=== PATIENT | female | born 1960 | race Two or more races ===

== ENCOUNTER 2024-11-01 07:49 | Outpatient (OUT) | payer MEDICARE, MEDICAID, SELFPAY ==
--- NOTE | 2024-11-01 08:07 | ECG_ITS ---
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 Measurements Intervals [place] Rate: 84 P: 29 WY: 141 QRS: -24 QRSD: 109 T: 17 QT: 396 QTc: 468 Interpretive Statements SINUS RHYTHM BORDERLINE LEFT AXIS DEVIATION [QRS AXIS < -20] LOW QRS VOLTAGE IN PRECORDIAL LEADS [QRS DEFLECTION < 1.0 mV IN CHEST LEADS] PATTERN CONSISTENT WITH PULMONARY DISEASE NONSPECIFIC ST & T-WAVE ABNORMALITY Abnormal ECG No previous ECG available for comparison Electronically Signed On 11-01-2024 17:28:05 EDT by KYRA SOLORZANO M.D.
[2024-11-01 09:08] LABS: Basophils Percent Auto 0.6 % (0.2-2.0); Eosinophils Absolute Auto 0.5 10^3/uL (0.0-0.7); Eosinophils Percent Auto 6.9 % (0.9-7.0); Hematocrit 38.7 % (36.0-48.0); Hemoglobin 12.3 g/dL (12.0-16.0); Immature Granulocytes Abs Auto 0.05 10^3/uL (0.00-0.03); Immature Granulocytes Pct Auto 0.8 % (0.0-0.5); Lymphocytes Absolute Auto 1.7 10^3/uL (1.2-3.8); Lymphocytes Percent Auto 26.7 % (20.5-60.0); Mean Corpuscular HGB Conc 31.8 g/dL (29.9-35.2); Mean Corpuscular Hemoglobin 29.4 pg (26.7-34.0); Mean Corpuscular Volume 92.6 fL (81.0-99.0); Mean Platelet Volume 8.6 fL (9.5-13.5); Monocytes Absolute Auto 0.5 10^3/uL (0.3-0.8); Monocytes Percent Auto 7.4 % (1.7-12.0); Neutrophils Absolute Auto 3.7 10^3/uL (1.4-6.5); Neutrophils Percent Auto 57.6 % (43.0-75.0); Platelet Count 420 10^3/uL (150-450); Red Blood Count 4.18 10^6/uL (4.20-5.40); Red Cell Distribution Width 14.3 % (11.0-15.0); White Blood Count 6.5 10^3/uL (4.0-11.0)
--- NOTE | 2024-11-01 09:16 | PM.PRESUREVA ---
History of Present Illness History of Present Illness Chief complaint: Neurogenic Bladder Narrative: Patient presents for presurgical testing. The patient states she was diagnosed with MS at the age of 21. She has a history of seizures, but states it has been more than 10 years since her last episode. She states she previously had a suprapubic catheter placed, but it was removed and she is now scheduled for reinsertion. [facility] Review of Systems ROS Narrative REVIEW OF SYSTEMS: Negative except as stated in HPI, ten or more systems reviewed. Constitutional: No fever, chills, weakness ENT: No sore throat or epistaxis Cardiovascular: No edema, chest pain, or palpitations Respiratory: No shortness of breath, cough, or wheezing Musculoskeletal: No joint pain or swelling Gastrointestinal: No abdominal pain, diarrhea, or vomiting Genitourinary: No hematuria Neurological: No headache Psychiatric: No mood changes [facility] Medical History (Updated 11/01/24 @ 09:15 by Karuna Hawkins NP) Constipation ?K59.00 - Constipation, unspecified (ICD-10) Poole catheter in place ?Z97.8 - Presence of other specified devices (ICD-10) Suprapubic catheter ?Z93.59 - Other cystostomy status (ICD-10) Femur fracture ?S72.90XA - Unspecified fracture of unspecified femur, initial encounter for closed fracture (ICD-10) History of blood transfusion ?Z92.89 - Personal history of other medical treatment (ICD-10) Anemia ?D64.9 - Anemia, unspecified (ICD-10) Arthritis ?M19.90 - Unspecified osteoarthritis, unspecified site (ICD-10) COVID-19 ?U07.1 - COVID-19 (ICD-10) Kidney stones ?N20.0 - Calculus of kidney (ICD-10) Transient cerebral ischemic attack ?G45.9 - Transient cerebral ischemic attack, unspecified (ICD-10) Lack of coordination ?R27.9 - Unspecified lack of coordination (ICD-10) Muscle weakness ?M62.81 - Muscle weakness (generalized) (ICD-10) Need for assistance with personal care ?Z74.1 - Need for assistance with personal care (ICD-10) Dysphagia ?R13.10 - Dysphagia, unspecified (ICD-10) Cellulitis of lower extremity ?L03.119 - Cellulitis of unspecified part of limb (ICD-10) Osteoporosis ?M81.0 - Age-related osteoporosis without current pathological fracture (ICD-10) Fibula fracture ?S82.409A - Unspecified fracture of shaft of unspecified fibula, initial encounter for closed fracture (ICD-10) History of fall ?Z91.81 - History of falling (ICD-10) UTI (urinary tract infection) ?N39.0 - Urinary tract infection, site not specified (ICD-10) Depression ?F32.A - Depression, unspecified (ICD-10) Radiculopathy, cervical ?M54.12 - Radiculopathy, cervical region (ICD-10) Erythema intertrigo ?L30.4 - Erythema intertrigo (ICD-10) Venous insufficiency (chronic) (peripheral) ?I87.2 - Venous insufficiency (chronic) (peripheral) (ICD-10) Unsteadiness on feet ?R26.81 - Unsteadiness on feet (ICD-10) Abnormality of gait ?R26.9 - Unspecified abnormalities of gait and mobility (ICD-10) Syncope and collapse ?R55 - Syncope and collapse (ICD-10) GERD (gastroesophageal reflux disease) ?K21.9 - Gastro-esophageal reflux disease without esophagitis (ICD-10) Cognitive communication deficit ?R41.841 - Cognitive communication deficit (ICD-10) Seizure ?R56.9 - Unspecified convulsions (ICD-10) Congenital mitral stenosis ?Q23.2 - Congenital mitral stenosis (ICD-10) Neurogenic bladder ?N31.9 - Neuromuscular dysfunction of bladder, unspecified (ICD-10) Multiple sclerosis (~1980) ?G35 - Multiple sclerosis (ICD-10) Surgical History (Updated 11/01/24 @ 09:15 by Karuna Hawkins NP) History of open reduction and internal fixation (ORIF) procedure (~2016) ?Z98.890 - Other specified postprocedural states (ICD-10) Status post ORIF of fracture of ankle (~2016) ?Z98.890 - Other specified postprocedural states (ICD-10) ?Z87.81 - Personal history of (healed) traumatic fracture (ICD-10) History of spinal surgery ?Z98.890 - Other specified postprocedural states (ICD-10) History of tonsillectomy ?Z90.89 - Acquired absence of other organs (ICD-10) S/P ureteral stent placement ?Z96.0 - Presence of urogenital implants (ICD-10) S/P cystoscopy ?Z98.890 - Other specified postprocedural states (ICD-10) H/O ureteroscopy (05/26/22) ?Z98.890 - Other specified postprocedural states (ICD-10) Family History (Updated 11/01/24 @ 08:37 by Karuna Hawkins NP) Other Family history of cancer Family history of heart disease Social History (Updated 11/01/24 @ 08:31 by Karuna Hawkins NP) Within the past year, how often did you have a drink containing alcohol: never Score interpretation: A score less than 3 is consistent with normal alcohol consumption. Smoking status: Never smoker Non-prescribed substance use: denies use Highest level of school completed/degree received: high school graduate Meds Home Medications and Allergies Home Medications ?Medication ?Instructions ?Recorded ?Confirmed ?Type acetaminophen 325 mg capsule 650 mg PO Q6H PRN pain 11/01/24 11/01/24 History albuterol sulfate 2.5 mg/3 mL 2.5 mg inhalation Q2H PRN 11/01/24 11/01/24 History (0.083 %) solution for nebulization shortness of breath or wheezing bisacodyl 10 mg rectal suppository 10 mg RI DAILY PRN constipation 11/01/24 11/01/24 History carboxymethylcellulose sodium 1 % 1 drp ophthalmic (eye) Q6H 11/01/24 11/01/24 History eye drops cholecalciferol (vitamin D3) 25 1,000 unit PO DAILY 11/01/24 11/01/24 History mcg (1,000 unit) capsule fludrocortisone 0.1 mg tablet 0.05 mg PO DAILY 11/01/24 11/01/24 History fluoxetine 10 mg capsule 10 mg PO DAILY 11/01/24 11/01/24 History lamotrigine 100 mg tablet 100 mg PO Q12H 11/01/24 11/01/24 History magnesium hydroxide 400 mg/5 mL 30 ml PO DAILY PRN constipation 11/01/24 11/01/24 History oral suspension (Milk of Magnesia) miconazole nitrate 2 % topical 1 applic topical TID PRN 11/01/24 11/01/24 History powder (Micro-Guard) Excoriation of abdominal folds nortriptyline 10 mg capsule 10 mg PO DAILY 11/01/24 11/01/24 History omeprazole 20 mg capsule,delayed 20 mg PO DAILY 11/01/24 11/01/24 History release sennosides 8.6 mg tablet (Senna 8.6 mg PO BID PRN constipation 11/01/24 11/01/24 History Lax) tacrolimus 0.1 % topical ointment 1 applic topical QPM 11/01/24 11/01/24 History Allergies Allergy/AdvReac Type Severity Reaction Status Date / Time aspirin Allergy Unknown Verified 11/01/24 08:30 Exam Narrative Exam Narrative: Constitutional: Awake, alert, resting comfortably in the wheelchair, appears well cared for, nontoxic, interactive, vital signs as charted Head: Normocephalic, atraumatic Neck: Supple, normal appearance, normal range of motion, no meningeal signs, no lymphadenopathy Respiratory: No respiratory distress, breath sounds clear Cardiovascular: Regular rate and rhythm, strong and regular heart tones Abdomen: Nontender, normal bowel sounds, soft, no CVA tenderness, Poole catheter intact draining a scant amount of yellow urine Musculoskeletal: Strong and equal hand grasps, moves all extremities Skin: No rashes or induration, no lesions, only visible skin inspected Neuro: No gross neurological deficits Psychiatric: Oriented ?3, normal affect Assessment and Plan Assessment and Plan (1) Neurogenic bladder: (2) Multiple sclerosis: Onset Date: ~1980 Plan Cystoscopy, suprapubic catheter placement scheduled with Dr. Warner November 16, 2024.
[2024-11-01 09:33] LABS: INR 1.03; Partial Thromboplastin Time 28.7 sec (22.3-36.2); Prothrombin Time 10.9 sec (9.0-11.6)
[2024-11-01 10:06] LABS: Anion Gap 10.8; BUN Creatinine Ratio 10.9; Calcium 8.7 mg/dL (8.5-10.1); Carbon Dioxide 32.3 mmol/L (21.0-32.0); Chloride 104 mmol/L (98-107); Estimated GFR (African America >60 (>=60 mL/min/1.73m^2); Estimated GFR (Non-African Ame 55 (>=60 mL/min/1.73m^2); Glucose 90 mg/dL (74-106); Potassium 3.1 mmol/L (3.5-5.1); Sodium 144 mmol/L (136-145)
== END 2024-11-01 07:50 | disposition home or self-care (01) ==
PROVIDERS: PCP Internal Medicine; Visit Provider Urology
DX: Z01.810 Encounter for preprocedural cardiovascular examination (principal); Z01.812 Encounter for preprocedural laboratory examination; Z01.818 Encounter for other preprocedural examination; N31.9 Neuromuscular dysfunction of bladder, unspecified; G35 Multiple sclerosis; R82.998 Other abnormal findings in urine
CPT/HCPCS: 80048; 85025; 85610; 85730; 87086; 87150; 87186; 93005; G0463

== ENCOUNTER 2024-11-16 07:01 | Day surgery (SDC) | payer MEDICARE, MEDICAID, SELFPAY ==
[2024-11-01 08:59] VITALS: BP 115/73; PULSE 88; TEMP 36.3; O2SAT 96; BMI 32.0
[2024-11-16] VITALS (10 sets, daily range): BP systolic 103–130; BP diastolic 67–85; PULSE 64–96; TEMP 36.1–36.4; O2SAT 92–95; BMI 31.5
--- OUTSIDE RECORDS SUMMARY | 2024-11-16 07:08 | XMS_ITS | CCD ---
Author Organization [facility] Care Team Providers Care Machine Tech Name Role Phone Maty Bolaños Primary Care Provider [phone] NARESH FOX Referring Unavailable BOLAÑOS, MATY Krishnamurthy Primary Care Unavailable FAHOURY, RANIA Referring Unavailable BOLAÑOS, MATY W Primary Care Unavailable FAHOURY, RANIA Referring Unavailable BOLAÑOS, MATY W Primary Care Unavailable FAHOURY, RANIA Referring Unavailable BOLAÑOS, MATY W Primary Care Unavailable FAHOURY, RANIA Referring Unavailable BOLAÑOS, MATY W Primary Care Unavailable NEVA MILLER Primary Care Physician DO Neva Miller Primary Care Provider DO Neva Miller Attending Provider [phone] DO Neva Miller Referring Provider [phone] MD Silvina Turner Attending Provider [phone] DO Neva Miller Referring Provider MD Silvina Turner Attending Provider [phone] Americo Maldonado Unavailable DO Neva Miller Primary Care Provider MD Tammy Allan Attending Provider [phone] MD Silvina Turner Attending Provider [phone] DO Neva Miller Primary Care Provider [phone] MD Tammy Allan Attending Provider MD Silvina Turner Attending Provider [phone] DO Ricardo Casanova Emergency Provider [phone] DO Neva Miller Primary Care Provider MD Silvina Turner Attending Provider DO Neva Miller Referring Provider YRN Botello Attending Provider DO Neva Miller Attending Provider [phone] YRN Botello Attending Provider DO Neva Miller Primary Care Provider [phone] DO Neva Miller Attending Provider [phone] YRN Botello Attending Provider DO Tammy Hart Emergency Provider DO Tammy Hart Attending Provider DO Neva Miller Primary Care Provider [phone] DO Yan Smith Attending Provider DO Neva Miller Attending Provider DO Neva Miller Primary Care Provider [phone] YRN Blair Attending Provider MD Silvina Turner Attending Provider DO Neva Miller Referring Provider YRN Botello Attending Provider DO Neva Miller Primary Care Provider [phone] DO Neva Miller Attending Provider DO Neva Miller Primary Care Provider DO Neva Miller Referring Provider [phone] MD Silvina Turner Attending Provider YRN Botello Attending Provider DO Neva Miller Attending Provider DO Adam Lind Emergency Provider Neva Miller DO Unavailable Neva Miller DO Primary Care Provider DO Neva Miller Primary Care Provider DO Neva Miller Attending Provider MD Tammy Allan Attending Provider [phone] MD Gely Story Emergency Provider MD Luis Santoro Admit Provider MD Luis Santoro Attending Provider MD Americo Maldonado Other Provider MD Yuriy Triana Attending Provider Neva Miller DO Primary Care Provider Neva Miller DO Attending Provider Tammy Allan MD Attending Provider Jez EVANS, Gely Burk Emergency Provider Yvan EVANS, Luis Admit Provider Americo Maldonado MD Other Provider Yuriy Triana MD Attending Provider Neva Miller DO Primary Care Provider [phone] Tammy Allan MD Attending Provider Neva Miller DO Primary Care Provider Tammy Allan MD Attending Provider Emre Mendes DO Emergency Provider [place] Gaviria MD, [place] Admit Provider [phone] [place] Gaviria MD Attending Provider Tammy Allan MD Other Provider Bong Jennings MD Other Provider Emma Merino MD Other Provider Mary EVANS, Romeo Alonzo Other Provider Tammy Smith MD Other Provider Johnny EVANS, Lew Santillan Other Provider [phone] Tamera EVANS, Jair Other Provider [phone] Daly FILEMAKER DEVELOPER-C, Monae Fernandez Other Provider Maryan GREERP-Mayra Other Provider Luis Santoro MD Attending Provider Americo Maldonado MD Other Provider Genia DO, Chelsea Other Provider Mayra Grier X Attending Unavailable ALLAN, Tammy R Attending Unavailable ALLAN, Tammy R Attending Unavailable Orblancach, Mayra X Attending Unavailable ALLAN, Tammy R Attending Unavailable ALLAN, Tammy R Attending Unavailable ALLAN, Tammy R Attending Unavailable ALLAN, Tammy R Attending Unavailable ALLAN, Tammy R Attending Unavailable Bong JENNINGS Attending Unavailable Bong JENNINGS Referring Unavailable JERRELL, Tammy Burk Attending Unavailable JERRELL, Tammy R Attending Unavailable Neva Miller DO Primary Care Provider [phone] Tammy Allan MD Attending Provider [phone] Neva Miller DO Attending Provider Neva Miller DO Referring Provider CASH BLAIR Attending Unavailable NEVA MILLER Referring Unavailable RACHAEL SALTER Attending Unavailable CHELSEA WILLINGHAM Attending Unavailable NEVA MILLER Referring Unavailable Neva Miller DO Primary Care Provider [phone] Tammy Allan MD Attending Provider Luis Santoro Attending Unavailable Tammy Allan Consulting Unavailable [place] Gaviria Admitting Unavailable Neva Miller Primary Care Unavailable Bong Jennings Consulting Unavailable Emma Merino Consulting Unavailable Romeo Hernandez Consulting Unavailable Tammy Smith Consulting Unavailable Lew Turner Consulting Unavailable Janet-Jair Narayan Consulting Unavail able Monae Kauffman Consulting Unavailable Mayra Grier Consulting Unavailable Americo Maldonado Consulting Unavailable Chelsea Willingham Consulting Unavailable Neva Miller Attending Unavailable Neva Miller Admitting Unavailable Neva Miller Primary Care Unavailable Tammy Allan Admitting Unavailable Tammy Allan Attending Unavailable Neva Miller Primary Care Unavailable Allan, Tammy Attending Unavailable Allan, Tammy Admitting Unavailable Vaschak, Neva Primary Care Unavailable Allan, Tammy Attending Unavailable Allan, Tammy Admitting Unavailable Vaschak, Neva Primary Care Unavailable Allan, Tammy Attending Unavailable Allan, Tammy Admitting Unavailable Vaschak, Neva Referring Unavailable Vaschak, Neva Attending Unavailable Vaschak, Neva Admitting Unavailable Allan, Tammy Attending Unavailable Allan, Tammy Admitting Unavailable Vaschak, Neva Primary Care Unavailable Allan, Tammy Attending Unavailable Allan, Tammy Admitting Unavailable Vaschak, Neva Primary Care Unavailable Vaschak, Neva Attending Unavailable Vaschak, Neva Admitting Unavailable Yuriy Triana Attending Unavailab Americo Gallardo Unavailable Yvan, Luis Admitting Unavailable Vaschak, Neva Primary Care Unavailable Allergies Allergy Classification Reported Allergen(s) Allergy Type Date of Onset Reaction(s) Facility (20 sources) Aluminum aspirin; Translations: [aspirin] Drug Allergy 9 Unknown Reaction [place], [place] Comment on above: difficulty breathing (9 sources) Aspirin; Translations: [aspirin] Drug Allergy 9 Unknown, Unknown Reaction [place] Other (20 sources) Adhesive Tape; Translations: [adhesive tape] Allergy to substance 2 Unknown Reaction, Rash [facility] (19 sources) Silicone Allergy to substance 3 [facility] (7 sources) Wound Dressing Adhesive Propensity to adverse reactions 3 [facility] (1 source) Aspirin Drug Allergy [address] [place] [address] Repository (1 source) silicone Drug allergy (disorder) [address] [place] [address] Repository Medications Current Medications Medication Drug Class(es) Dates Sig (Normalized) Sig (Original) acetaminophen 325 mg oral capsule (20 sources) Start: 10-17-2023 take 2 capsules by mouth every six hours as needed for pain Acetaminophen 325 mg capsule Active 650 MG PO Every 6 hours as needed for pain October 17, 2023 12:00am Start: 10-17-2023 take 650 mg by mouth every six hours Acetaminophen Active 650 MG PO Every 6 hours October 17, 2023 12:00am Start: 04-23-2021 End: 10-17-2023 take 1 tablet by mouth every six hours as needed for pain Acetaminophen 500 mg Tablet Discontinued 500 MG PO Q6H as needed for Pain April 23, 2021 12:00am October 17, 2023 12:42pm take 1 tablet by rupa th every eight hours as needed for pain acetaminophen (Tylenol 8 Hour) 650 MG ER tablet Take 650 mg by mouth every 8 (eight) hours if needed for mild pain. Do not crush, chew, or split. Active take 1 tablet by rupa th every six hours as needed for pain acetaminophen (TYLENOL) 500 MG tablet Take 500 mg by mouth every 6 hours as needed for Pain 0 Active albuterol 0.83 mg/ml inhalation solution (9 sources) beta2-Adrenergic Agonist Start: 10-08-2024 take 2.5 mg by inhalation every two hours as needed Albuterol Sulfate 2.5 mg /3 mL (0.083 %) Solution For Nebulization Active 2.5 MG INHALATION Q2H as needed for Shortness Of Breath 90 30 October 08, 2024 1:00am alendronic acid 70 mg oral tablet (4 sources) Bisphosphonate Start: 08-26-2017 take 1 tablet by mouth every week alendronate (FOSAMAX) 70 MG tablet Fosamax 70 mg tablet Take 1 tablet every week by oral route. 0 08/26/2017 Active Artificial Tears (5 sources) Start: 09-15-2022 Artificial Tears Eye-Both, Refill(s) 0 Start Date: 09/15/22 Status: Ordered ascorbic acid 500 mg oral tablet (4 sources) Vitamin C take 2 tablets by mouth once daily ascorbic acid (VITAMIN C) 500 MG tablet Take 1,000 mg by mouth daily 0 Active bisacodyl 10 mg rectal suppository (20 sources) Stimulant Laxative Start: 07-28-2023 Bisacodyl 10 mg Suppository Active 10 MG PA Daily as needed for constipation July 28, 2023 1:00am Start: 04-23-2021 End: 04-23-2021 take 1 tablet by mouth once Bisacodyl (Dulcolax (Bisac odyl)) 5 mg Tablet,Delayed Release (Dr/Ec) Discontinued 5 MG PO Once April 23, 2021 12:00am April 23, 2021 8:11am Carboxymethylcellulose (10 sources) Start: 03-29-2022 carboxymethylc ellulose Refills(s) 0 Start Date: 10/28/21 Status: Ordered carboxymethylcel lulose (Artificial Tears) 1 % ophthalmic solution Administer 1 drop into both eyes in the morning and 1 drop at noon and 1 drop in the evening and 1 drop before bedtime. Active take 1 drop(s) into the eye(s) in the morning, then take 1 drop(s) into the eye(s) in the evening, then take 1 drop(s) into the eye(s) at bedtime carboxymethylcellulose (Artificial Tears ) 1 % ophthalmic solution 1 drop in the morning and 1 drop in the evening and 1 drop before bedtime. Active Carboxymethylcellulose Sodiu m (Artificial Tears ([facility])) 1 % drops (8 sources) Start: 07-24-2024 Carboxymethylc ellulose Sodium (Artificial Tears ([facility])) 1 % drops Active 1 DROPS EYE-BOTH 2-4 TIMES PER DAY as needed for dry eye(s) July 24, 2024 1:00am Start: 07-24-2024 Carboxymethylc ellulose Sodium (Artificial Tears ([facility])) 1 % drops Active 1 DROPS EYE-BOTH 2-4 TIMES PER DAY as needed for dry eye(s) July 24, 2024 12:00am cholecalciferol 0.025 mg oral tablet (20 sources) Vitamin D Start: 12-11-2021 take 1 tablet by mouth once daily in the morning Cholecalciferol (Vitamin D3) (Vitamin D3) 25 mcg (1,000 unit) Tablet Active 75 MCG PO Every morning December 11, 2021 12:00am Start: 12-11-2021 take 1 tablet by rupa once daily Cholecalciferol (Vitamin D3) (Vitamin D3) 25 mcg (1,000 unit) Tablet Active 25 MCG PO Daily December 10, 2021 11:00pm take 1 capsule by [facility] every twenty-four hours Vitamin D (Cholecalciferol) 25 MCG (1000 UT) 1 capsule Orally Once a day Active Clobetasol (1 source) Corticosteroid Start: 10-28-2021 clobetasol 0.025% topical cream Topical, BID, Refill(s) 0 Start Date: 10/28/21 Status: Ordered dextran 70 1 mg/ml / glycerin 2 mg/ml / hypromellose 3 mg/ml ophthalmic solution (16 sources) Plasma Volume Curtain Framer, Non-Standardized Chemical Allergen Start: 04-23-2021 take 1 drop(s) into the eye(s) four times daily Artificial Tear(Qodkr-Zuf-Sm y) Active 1 DROPS EYE-BOTH Four times daily April 22, 2021 11:00pm docusate sodium 100 mg oral capsule (5 sources) Start: 10-08-2024 take 2 capsules by mouth twice daily as needed for constipation Docusate Sodium 100 mg Capsule Active 200 MG PO Twice daily as needed for Constipation 60 30 October 08, 2024 1:00am Euc Uni-Wtpp-Vwa,Kya m Oils-Pt (Vicks Babyrub) Ointment (20 sources) Start: 12-11-2021 Euc Fcc-Kzck-Kpn,Kya m Oils-Pt (Vicks Babyrub) Ointment Active APPLIC TOPICAL December 11, 2021 11:15am Start: 12-11-2021 End: 05-18-2024 Euc Lbr-Ehwz-Xno,Rosem Oils- Pt (Vicks Babyrub) Ointment Discontinued 1 APPLIC TOPICAL As Directed as needed for Congestion December 11, 2021 12:00am May 18, 2024 8:55pm Start: 12-11-2021 End: 05-18-2024 Euc Tdi-Veeb-Ohr,Rosem Oils- Pt (Vicks Babyrub) Ointment Discontinued 1 APPLIC TOPICAL As Directed as needed for Congestion December 10, 2021 11:00pm May 18, 2024 7:55pm Start: 12-11-2021 End: 05-18-2024 Euc Ifx-Ttmg-Elz,Rosem Oils- Pt (Vicks Babyrub) Ointment Discontinued 1 APPLIC TOPICAL As Directed December 11, 2021 12:00am May 18, 2024 8:55pm Start: 12-11-2021 Euc Oil-Aloe-L av,Rosem Oils-Pt (Vicks Babyrub) Ointment Active 1 APPLIC TOPICAL As Directed December 10, 2021 11:00pm Start: 12-11-2021 Euc Oil-Aloe-L av,Rosem Oils-Pt (Vicks Babyrub) Ointment Active 1 APPLIC TOPICAL As Directed December 11, 2021 12:00am Start: 12-11-2021 Euc Oil-Aloe-L av,Rosem Oils-Pt (Vicks Babyrub) Ointment Active APPLIC TOPICAL December 11, 2021 12:00am Euc Fvk-Nvwn-Ezx,Rosem Oils-Pt (Vicks Babyrub) ointment (6 sources) Start: 10-04-2024 Euc Oil-Aloe-L av,Rosem Oils-Pt (Vicks Babyrub) ointment Active 1 APPLIC TOPICAL Four times daily as needed for chest congestion October 04, 2024 1:00am ferrous sulfate 325 mg oral tablet (4 sources) take 1 tablet by mouth once daily at breakfast ferrous sulfate 325 (65 Fe) MG tablet Take 325 mg by mouth daily (with breakfast) 0 Active fludrocortisone acetate 0.1 mg oral tablet (20 sources) Start: 04-23-2021 take 1 tablet by mouth once daily in the morning Fludrocortisone 0.1 mg Tablet Active 0.05 MG PO Every morning April 23, 2021 12:00am Start: 04-23-2021 take 0.05 mg by mout h once daily in the morning Fludrocortisone Active 0.05 MG PO Every morning April 23, 2021 12:00am take 0.5 tablet by m outh once daily fludrocortisone (Florinef) 0.1 MG tablet Take 0.5 tablets by mouth 1 (one) time each day at the same time Active FLUoxetine 10 mg oral capsule (20 sources) Serotonin Reuptake Inhibitor Start: 05-26-2022 take 1 capsule by mouth once daily in the morning Fluoxetine (Prozac) 10 mg Capsule Active 10 MG PO Every morning May 26, 2022 12:00am Start: 04-23-2021 End: 05-12-2022 take 1 capsule by mouth once daily Fluoxetine 10 mg capsule Discontinued 10 MG PO Daily April 23, 2021 12:00am May 12, 2022 3:37pm take 1 tablet by rupa th once daily FLUoxetine (PROZAC) 10 MG tablet Take 10 mg by mouth daily 0 Active lamoTRIgine 100 mg oral tablet (20 sources) Mood Stabilizer, Anti-epileptic Agent Start: 04-23-2021 take 1 tablet by mouth twice daily Lamotrigine 100 mg tablet Active 100 MG PO Twice daily April 23, 2021 12:00am Start: 04-23-2021 take 100 mg by mouth once tressa y Lamotrigine Active 100 MG PO Daily April 23, 2021 8:11am miconazole nitrate 0.02 mg/mg topical powder (20 sources) Azole Antifungal Start: 10-04-2024 Miconazole Ni trate (Miconazorb Af) 2 % powder Active 1 APPLIC TOPICAL Three times daily as needed for excoriation October 04, 2024 1:00am Start: 07-24-2024 End: 10-04-2024 Miconazole Nitrate (Antifung al (Miconazole)) 2 % cream Discontinued 1 APPLIC TOPICAL Three times daily as needed for rash July 24, 2024 1:00am October 04, 2024 11:54pm Start: 05-12-2022 End: 05-18-2024 Miconazole Nitrate (Micro-Gu randolph) 2 % Powder Discontinued 1 APPLIC TOPICAL Three times daily as needed for excoriation to abd folds May 12, 2022 12:00am May 18, 2024 8:55pm Start: 05-12-2022 Miconazole Nit rate (Micro-Guard) 2 % Powder Active 1 APPLIC TOPICAL Three times daily May 12, 2022 12:00am Start: 10-28-2021 miconazole mg, Buccal, Daily, Refills(s) 0 Start Date: 10/28/21 Status: Ordered Milk of Magnesia (3 sources) Start: 08-16-2024 Milk of Magnes ia mg, Oral, Refills(s) 0 Start Date: 08/16/24 Status: Ordered Mineral Oil-Hydrophil Petrol at (Aquaphor) Ointment (20 sources) Start: 12-11-2021 Mineral Oil-Hy drophil Petrolat (Aquaphor) Ointment Active 1 APPLIC TOPICAL Three times daily December 11, 2021 11:13am Start: 12-11-2021 End: 05-26-2022 Mineral Oil-Hydrophil Petrol at (Aquaphor) Ointment Discontinued 1 APPLIC TOPICAL Three times daily December 10, 2021 11:00pm May 26, 2022 8:56am Start: 12-11-2021 End: 05-26-2022 Mineral Oil-Hydrophil Petrol at (Aquaphor) Ointment Discontinued 1 APPLIC TOPICAL Three times daily December 11, 2021 12:00am May 26, 2022 9:56am Start: 12-11-2021 Mineral Oil-Hy drophil Petrolat (Aquaphor) Ointment Active 1 APPLIC TOPICAL Three times daily December 11, 2021 12:00am 24 hr mirabegron 50 mg extended release oral tablet (20 sources) beta3-Adrenergic Agonist Start: 06-22-2022 take 1 tablet by mouth once daily Myrbetriq 50 mg oral tablet, extended release 50 mg = 1 tab(s), Oral, Daily, # 30 tab(s), Refills(s) 3, [facility], [facility], 06/02/22 11:25:00 EDT, Height/Length Dosing, 110, kg, 06/02/22 11:25:00 EDT, Weight Dosing Start Date: 06/22/22 Status: Ordered Start: 05-12-2022 End: 10-17-2023 take 1 tablet by mouth once daily Mirabegron (Myrbetriq) 25 mg tablet extended release 24 hr Discontinued 25 MG PO Daily May 12, 2022 12:00am October 17, 2023 12:42pm Start: 05-05-2022 take 1 mg by mouth once daily Myrbetriq 25 mg oral tablet, extended release mg tab(s), Oral, Daily, Refills(s) 0 Start Date: 05/05/22 Status: Ordered Miralax 17 gram packet (2 sources) Start: 05-05-2022 take 1 g by mouth once daily Miralax 17 gram packet gm, Oral, Daily, Refills(s) 0 Start Date: 05/05/22 Status: Ordered Multiple Vitamins-Minerals (THERAPEUTIC MULTIVITAMIN-MINERA LS) tablet (4 sources) take 1 tablet by mouth once daily Multiple Vitamins-Minerals (THERAPEUTIC MULTIVITAMIN-MINERA LS) tablet Take 1 tablet by mouth daily 0 Active nitrofurantoin, macrocrystals 25 mg / nitrofurantoin, monohydrate 75 mg oral capsule (5 sources) Nitrofuran Antibacterial Start: 10-08-2024 take 1 capsule by mouth twice daily at mealtime Nitrofurantoin Monohyd/M-Cryst 100 mg Capsule Active 100 MG PO Twice daily with meals 2 October 08, 2024 1:00am nortriptyline 25 mg oral capsule (20 sources) Tricyclic Antidepressant Start: 10-28-2021 take 1 mg by mouth three times daily nortriptyline 25 mg Cap mg cap(s), Oral, TID, Refills(s) 0 Start Date: 10/28/21 Status: Ordered Start: 04-23-2021 take 1 capsule by mo uth once daily at bedtime Nortriptyline 10 mg capsule Active 20 MG PO Daily at bedtime April 23, 2021 12:00am Start: 04-23-2021 take 20 mg by mouth once daily at bedtime Nortriptyline Active 20 MG PO Daily at bedtime April 23, 2021 12:00am take 2 capsules by m outh once daily nortriptyline (Pamelor) 10 MG capsule Take 2 capsules by mouth 1 (one) time each day at the same time. Active omeprazole 20 mg delayed release oral capsule (19 sources) Proton Pump Inhibitor Start: 05-16-2024 take 1 capsule by mouth once daily in the morning Omeprazole 20 mg capsule,delayed release(DR/EC) Active 20 MG PO Every morning May 16, 2024 12:00am oseltamivir 75 mg oral capsule (3 sources) Neuraminidase Inhibitor Start: 08-16-2024 take 1 capsule by mouth twice daily oseltamivir 75 mg Cap 75 mg = 1 cap(s), Oral, BID Start Date: 08/16/24 Status: Ordered 24 hr oxybutynin chloride 5 mg extended release oral tablet (20 sources) Cholinergic Muscarinic Antagonist Start: 10-28-2021 take 1 mg by mouth once daily oxybutynin 5 mg ER Tab mg tab(s), Oral, Daily, Refills(s) 0 Start Date: 10/28/21 Status: Ordered Start: 04-23-2021 End: 05-26-2022 take 1 tablet by mouth twice daily Oxybutynin Chloride 5 mg tablet Discontinued 5 MG PO Twice daily April 23, 2021 12:00am May 26, 2022 9:56am pantoprazole 20 mg delayed release oral tablet (20 sources) Proton Pump Inhibitor Start: 09-15-2022 take 1 mg by mouth once daily Protonix 20 mg Tab-DR mg tab(s), Oral, Daily, Refills(s) 0 Start Date: 09/15/22 Status: Ordered Start: 10-28-2021 take 1 mg by mouth once daily Pantoprazole [address] Tab mg tab(s), Oral, Daily, Refills(s) 0 Start Date: 10/28/21 Status: Ordered Start: 04-23-2021 End: 05-16-2024 Pantoprazole 40 mg tablet,de layed release (DR/EC) Discontinued 20 MG PO Daily April 23, 2021 12:00am May 16, 2024 10:15am Start: 04-23-2021 take 40 mg by mouth once daily Pantoprazole Active 40 MG PO Daily April 23, 2021 8:11am Start: 04-23-2021 End: 05-16-2024 take 20 mg by mouth once daily Pantoprazole Discontinu ed 20 MG PO Daily April 23, 2021 12:00am May 16, 2024 10:15am take 1 tablet by rupa th every twenty-four hours Protonix 20 MG 1 tablet Orally Once a day Active Phl-Sennosides (5 sources) Start: 10-28-2021 Phl-Sennosides Refills(s) 0 Start Date: 10/28/21 Status: Ordered Probiotic Product (BACID PO) (4 sources) Probiotic Produc t (BACID PO) Take by mouth 0 Active Sennosides (20 sources) Start: 04-23-2021 Sennosides Act nani 8.6 MG PO As Directed April 23, 2021 8:11am Start: 04-23-2021 End: 07-28-2023 take 16.2 mg by mouth twice daily Sennosides Discontinued 16.2 MG PO Twice daily April 23, 2021 12:00am July 28, 2023 9:45am Start: 04-23-2021 End: 07-28-2023 take 16.2 mg by mouth twice daily Sennosides Discontinued 16.2 MG PO Twice daily April 22, 2021 11:00pm July 28, 2023 8:45am Start: 04-23-2021 take 16.2 mg by mout h twice daily Sennosides Active 16.2 MG PO Twice daily April 22, 2021 11:00pm Start: 04-23-2021 take 16.2 mg by mout h twice daily Sennosides Active 16.2 MG PO Twice daily April 23, 2021 12:00am Start: 04-23-2021 Sennosides Act nani 8.6 MG PO As Directed April 23, 2021 12:00am sennosides, assisted 8.6 mg oral capsule (5 sources) take 1 capsule by mo uth twice daily as needed for constipation Sennosides (Senna) 8.6 MG capsule Take 1 capsule by mouth 2 (two) times a day as needed (constipation) Active take 2 tablets by mo uth every twenty-four hours Sennosides 8.6 MG 2 tablets at bedtime a s needed Orally Once a day Active Sodium Chloride (5 sources) Start: 09-15-2022 Sodium Chlorid e Refills(s) 0 Start Date: 09/15/22 Status: Ordered tacrolimus 0.001 mg/mg topical ointment (20 sources) Calcineurin Inhibitor Immunosuppressant Start: 10-04-2024 Tacrolimus 0.1 % ointment Active 1 APPLIC TOPICAL Daily October 04, 2024 1:00am Start: 05-12-2022 End: 05-18-2024 Tacrolimus (Protopic) 0.1 % Ointment Discontinued 1 APPLIC TOPICAL Daily at bedtime May 12, 2022 12:00am May 18, 2024 8:55pm Start: 05-05-2022 tacrolimus top ical 0.1% ointment Topical, BID, Refill(s) 0 Start Date: 05/05/22 Status: Ordered 1 ml triamcinolone acetonide 40 mg/ml prefilled syringe (4 sources) Corticosteroid Start: 05-04-2024 End: 05-04-2024 triamcinolone acetonide (Kenalog-40) injection 40 mg Start: 05-04-2024 End: 05-04-2024 triamcinolone acetonide (Marko alog-40) injection 40 mg Start: 05-04-2024 End: 05-04-2024 40 mg, Intra-articular, Once , On Michelle 05/04/24 at 1400, For 1 dose Start: 05-04-2024 End: 05-04-2024 40 mg, Intra-articular, Once , On Michelle 05/04/24 at 1400, For 1 dose Vicks BabyRub topical ointment (8 sources) Start: 10-28-2021 Vicks BabyRub topical ointment Refill(s) 0 Start Date: 10/28/21 Status: Ordered Vitamin D 1000 intl units (25 mcg) Tab (8 sources) Start: 10-28-2021 take 1 tablet by mouth once daily Vitamin D 1000 intl units (25 mcg) Tab mcg tab(s), Oral, Daily, Refills(s) 0 Start Date: 10/28/21 Status: Ordered Completed/Discontinued Medications Medication Drug Class(es) Dates Sig (Normalized) Sig (Original) Artificial Tear(Ixrqv-Sqf-Lwr ) (8 sources) Start: 04-23-2021 End: 05-18-2024 take 1 drop(s) into the eye(s) four times daily Artificial Tear(Zyumi-Day-Txu) Discontinued 1 DROPS EYE-BOTH Four times daily April 23, 2021 12:00am May 18, 2024 8:55pm Start: 04-23-2021 take 1 drop(s) into the eye(s) four times daily Artificial Tear(Yqyke-Kmm-Jjb) Active 1 DROPS EYE-BOTH Four times daily April 23, 2021 12:00am Start: 04-23-2021 take 1 drop(s) into the eye(s) four times daily Artificial Tear(Qgcml-Ups-Mub) Active 1 DROPS EYE-BOTH Four times daily April 22, 2021 11:00pm Artificial Tear(Xefqc-Cpd-Yt y) 0.1-0.3-0.2 % Drops (8 sources) Start: 04-23-2021 End: 05-18-2024 Artificial Tear(Mxjco-Lce-Vo y) 0.1-0.3-0.2 % Drops Discontinued 1 DROPS EYE-BOTH Four times daily as needed for Dry Eyes April 23, 2021 12:00am May 18, 2024 8:55pm Start: 04-23-2021 End: 05-18-2024 Artificial Tear(Ppodb-Jde-Id y) 0.1-0.3-0.2 % Drops Discontinued 1 DROPS EYE-BOTH Four times daily as needed for Dry Eyes April 22, 2021 11:00pm May 18, 2024 7:55pm cephalexin 500 mg oral capsule (20 sources) Cephalosporin Antibacterial Start: 08-08-2024 End: 10-04-2024 take 1 capsule by mouth twice daily Cephalexin 500 mg capsule Discontinued 500 MG PO Twice daily 14 August 08, 2024 1:00am October 04, 2024 11:55pm Start: 10-17-2023 End: 05-16-2024 take 1 capsule by mouth twice daily Cephalexin 500 mg capsule Discontinued 500 MG PO Twice daily 21 05October 17, 2023 12:00am May 16, 2024 10:13am Start: 11-21-2022 End: 07-27-2023 take 1 capsule by mouth every eight hours Cephalexin 500 mg Capsule Discontinued 500 MG PO Q8H November 21, 2022 12:00am July 27, 2023 10:33am Start: 06-29-2022 End: 07-06-2022 take 1 capsule by mouth twice daily Cephalexin 500 mg capsule Discontinued 500 MG PO Twice daily 21 05June 29, 2022 1:00am July 06, 2022 9:12am Start: 05-05-2022 take 1 capsule by [facility] twice daily Keflex 500 mg Cap 500 mg = 1 cap(s), Oral, BID, # 28 cap(s), Refills(s) 0, Pharmacy: [facility], 174, cm, 05/05/22 11:25:00 EDT, Height/Length Dosing, 94.9, kg, 12/02/21 14:23:00 EDT, Weight Dosing Start Date: 05/05/22 Status: Ordered Start: 12-11-2021 End: 07-06-2022 take 2 capsules by mouth twice daily Cephalexin (Keflex) 250 mg Capsule Discontinued 500 MG PO Twice daily December 11, 2021 12:00am July 06, 2022 9:12am Start: 12-11-2021 take 1 capsule by mo [facility] once daily Cephalexin (Keflex) 250 mg Capsule Active 250 MG PO Daily December 11, 2021 11:13am Ceramides 1,3,6-Ii (Cerave) Cream (20 sources) Start: 04-23-2021 End: 12-11-2021 Ceramides 1,3,6-Ii (Cerave) Cream Discontinued 1 APPLIC TOPICAL Daily April 23, 2021 8:07am December 11, 2021 11:14am Start: 04-23-2021 End: 12-11-2021 Ceramides 1,3,6-Ii (Cerave) Cream Discontinued 1 APPLIC TOPICAL Daily April 22, 2021 11:00pm December 11, 2021 10:14am Start: 04-23-2021 End: 12-11-2021 Ceramides 1,3,6-Ii (Cerave) Cream Discontinued 1 APPLIC TOPICAL Daily April 23, 2021 12:00am December 11, 2021 11:14am ciprofloxacin 500 mg oral tablet (1 source) Quinolone Antimicrobial Start: 09-01-2022 take 1 tablet by mouth once daily Cipro 500 mg Tab 500 mg = 1 tab(s), Oral, Daily, Take 1 tablet the day before the procedure and 1 tablet after the procedure, # 2 tab(s), Refills(s) 0 Start Date: 09/01/22 Status: Ordered Dextromethorphan / guaiFENesin (8 sources) Uncompetitive D-jpaysn-Z-aspartat e Receptor Antagonist, Sigma-1 Agonist Start: 07-24-2024 End: 10-04-2024 Dextromethorphan- Guaifenesin (Adult [facility]in Dm Max) 10-200 mg/5 mL liquid Discontinued 10 ML PO every 6 to 8 hours as needed for cough July 24, 2024 1:00am October 04, 2024 11:55pm Start: 07-24-2024 Dextromethorph an-Guaifenesin (Adult [facility]in Dm Max) 10-200 mg/5 mL liquid Active 10 ML PO every 6 to 8 hours as needed for cough July 24, 2024 12:00am ertapenem 1000 mg injection (9 sources) Penem Antibacterial Start: 05-22-2024 End: 07-24-2024 take 1 g intravenously every twenty-four hours Ertapenem 1 gram Recon Soln Discontinued 1 GM IV Q24H 14 May 22, 2024 12:00am July 24, 2024 10:53am famotidine 20 mg oral tablet (10 sources) Histamine-2 Receptor Antagonist Start: 05-18-2024 End: 07-24-2024 take 1 tablet by mouth once daily Famotidine (Acid-Pep) 20 mg tablet Discontinued 20 MG PO Daily May 18, 2024 12:00am July 24, 2024 10:53am fluticasone propionate 0.05 mg/actuat metered dose nasal spray (20 sources) Corticosteroid Start: 04-23-2021 End: 04-23-2021 Fluticasone Propionate 50 mcg/actuation spray,suspension Discontinued INTRANASAL April 23, 2021 12:00am April 23, 2021 8:11am Start: 04-23-2021 End: 05-12-2022 Fluticasone Propionate 50 mc g/actuation Driscoll,Suspension Discontinued 1 SPRAY INTRANASAL Daily April 23, 2021 12:00am May 12, 2022 3:37pm fluticasone (MAGUE NASE) 50 MCG/ACT nasal spray 1 spray by Each Nare route daily 0 Active Magnesium Hydroxide (16 sources) Start: 07-28-2023 End: 10-08-2024 take 2400 mg by mouth once daily as needed for constipation Magnesium Hydroxide (Milk Of Magnesia) 400 mg/5 mL Suspension Discontinued 2400 MG PO Daily as needed for constipation July 28, 2023 1:00am October 08, 2024 4:55pm Start: 07-28-2023 take 2400 mg by mout h once daily as needed for constipation Magnesium Hydroxide (Milk Of Magnesia) 400 mg/5 mL Suspension Active 2400 MG PO Daily as needed for constipation July 28, 2023 1:00am Start: 07-28-2023 take 2400 mg by mout h once daily as needed for constipation Magnesium Hydroxide (Milk Of Magnesia) 400 mg/5 mL Suspension Active 2400 MG PO Daily as needed for constipation July 28, 2023 12:00am Start: 07-28-2023 take 2400 mg by mouth once bernice ly Magnesium Hydroxide (Milk Of Magnesia) 400 mg/5 mL Suspension Active 2400 MG PO Daily July 28, 2023 1:00am Start: 07-28-2023 take 400 mg by mouth once tressa y Magnesium Hydroxide (Milk Of Magnesia) 400 mg/5 mL Suspension Active 400 MG PO Daily July 28, 2023 12:00am menthol 3.2 mg oral lozenge (20 sources) Start: 05-12-2022 End: 10-08-2024 Menthol 3.2 mg Lozenge Disco ntinued 3.2 MG PO As Directed May 12, 2022 12:00am October 08, 2024 4:55pm Start: 05-05-2022 take 1 mg by mouth e very two hours menthol 1.7 mg mucous membrane lozenge mg, lozenge(s), Oral, q2hr, Refill(s) 0 Start Date: 05/05/22 Status: Ordered methylPREDNISolone 4 mg oral tablet (14 sources) Corticosteroid Start: 10-17-2023 End: 05-18-2024 take 1 tablet by mouth once Methylprednisolone (Medrol (Edward)) 4 mg tablets,dose pack Discontinued 0 PO .COMPLEX October 17, 2023 12:00am May 18, 2024 8:55pm orally per package directions naproxen sodium 220 mg oral tablet (20 sources) Nonsteroidal Anti-inflammatory Drug Start: 04-23-2021 End: 12-11-2021 take 1 tablet by mouth once daily as needed for pain Naproxen Sodium (Aleve) 220 mg Tablet Discontinued 220 MG PO Daily as needed for Pain April 23, 2021 12:00am December 11, 2021 11:13am nystatin 100 unt/mg topical powder (20 sources) Polyene Antifungal Start: 04-23-2021 End: 05-26-2022 Nystatin (Nyamyc) 100,000 unit/gram powder Discontinued 1 APPLIC TOPICAL As Directed April 23, 2021 12:00am May 26, 2022 9:56am Nystatin 770048 UNIT/GM 1 application Externally Twice a day Active nystatin (MYCOST ATIN) 568963 UNIT/GM cream Apply topically 2 times daily Apply topically 2 times daily. 0 Active Pneumoc 20-Gilda Conj-Dip Cr(Pf) (20 sources) Start: 05-26-2022 End: 10-17-2023 inject 1 mL by intramuscular injection once daily at bedtime Pneumoc 20-Gilda Conj-Dip Cr(Pf) (Prevnar 20 (Pf)) 0.5 mL Syringe Discontinued 0.5 ML IM Daily at bedtime May 25, 2022 11:00pm October 17, 2023 11:42am Start: 05-26-2022 End: 10-17-2023 inject 1 mL by intramuscular injection once daily at bedtime Pneumoc 20-Gilda Conj-Dip Cr(Pf) (Prevnar 20 (Pf)) 0.5 mL Syringe Discontinued 0.5 ML IM Daily at bedtime May 26, 2022 12:00am October 17, 2023 12:42pm Start: 05-26-2022 inject 1 mL by intra muscular injection once daily at bedtime Pneumoc 20-Gilda Conj-Dip Cr(Pf) (Prevnar 20 (Pf)) 0.5 mL Syringe Active 0.5 ML IM Daily at bedtime May 25, 2022 11:00pm Start: 05-26-2022 inject 1 mL by intra muscular injection once daily at bedtime Pneumoc 20-Gilda Conj-Dip Cr(Pf) (Prevnar 20 (Pf)) 0.5 mL Syringe Active 0.5 ML IM Daily at bedtime May 26, 2022 12:00am polyethylene glycol 3350 82202 mg powder for oral solution (20 sources) Osmotic Laxative Start: 12-11-2021 End: 07-28-2023 Polyethylene Glycol 3350 (Miralax) 17 gram Powder In Packet Discontinued 17 GM PO Daily December 11, 2021 12:00am July 28, 2023 9:45am microencapsulated potassium chloride 20 meq extended release oral tablet (20 sources) Start: 04-23-2021 End: 12-11-2021 Potassium Chloride (Klor-Con M20) 20 mEq Tablet,Er Particles/Crystals Discontinued 20 MEQ PO Daily April 23, 2021 12:00am December 11, 2021 11:13am take 2 capsules by m outh twice daily, then take 1 capsule by mouth potassium chloride (MICRO-K) 10 MEQ extended release capsule Take 20 mEq by mouth 2 times daily 0 Active Sennosides 8.6 mg Capsule (8 sources) Start: 04-23-2021 End: 07-28-2023 Sennosides 8.6 mg Capsule Discontinued 16.2 MG PO Twice daily as needed for Constipation April 23, 2021 12:00am July 28, 2023 9:45am Start: 04-23-2021 End: 07-28-2023 Sennosides 8.6 mg Capsule Di scontinued 16.2 MG PO Twice daily as needed for Constipation April 22, 2021 11:00pm July 28, 2023 8:45am terbinafine hydrochloride 10 mg/ml topical cream (20 sources) Allylamine Antifungal Start: 07-28-2023 End: 05-16-2024 Terbinafine Hcl 1 % Cream Discontinued 1 APPLIC TOPICAL Daily July 28, 2023 1:00am May 16, 2024 10:15am Start: 07-28-2023 Terbinafine Hc l (Lamisil) 1 % Cream Active 1 APPLIC TOPICAL Twice daily July 28, 2023 12:00am Teriparatide (Forteo) 20 mcg/dose (620mcg/2.48mL) pen injector (20 sources) Start: 04-23-2021 End: 12-11-2021 inject 20 ug by subcutaneous injection once daily Teriparatide (Forteo) 20 mcg/dose (620mcg/2.48mL) pen injector Discontinued 20 MCG SUBCUT Daily April 23, 2021 8:11am December 11, 2021 11:13am Start: 04-23-2021 End: 12-11-2021 inject 20 ug by subcutaneous injection once daily Teriparatide (Forteo) 20 mcg/dose (620mcg/2.48mL) pen injector Discontinued 20 MCG SUBCUT Daily April 22, 2021 11:00pm December 11, 2021 10:13am Start: 04-23-2021 End: 12-11-2021 inject 20 ug by subcutaneous injection once daily Teriparatide (Forteo) 20 mcg/dose (620mcg/2.48mL) pen injector Discontinued 20 MCG SUBCUT Daily April 23, 2021 12:00am December 11, 2021 11:13am 100 ml zoledronic acid 0.05 mg/ml injection (12 sources) Bisphosphonate Start: 05-16-2024 End: 10-04-2024 Zoledronic Uwlb-Efyjxevv-Zpbbr (Reclast) 5 mg/100 mL piggyback Discontinued EACH IV once a year May 16, 2024 12:00am October 04, 2024 11:55pm Problems Active Problems Problem Classification Problem Date Documented Da te Episodic/Chronic Biliary tract disease (2 sources) Biliary calculus; Translations: [Calculus of gallbladder without cholecystitis without obstruction] Onset: 11-03-2024 11-03-2024 Episodic Cardiac dysrhythmias (20 sources) Tachycardia; Translations: [Tachycardia, unspecified] Onset: 10-04-2024 05-19-2024 Episodic Chronic ulcer of skin (20 sources) Ulcer of lower extremity; Translations: [Non-pressure chronic ulcer of unspecified part of right lower leg with unspecified severity] Onset: 07-14-2021 Resolved: 07-14-2021 12-12-2021 Chronic Complication of device; implant or graft (20 sources) Complication of urinary catheter; Translations: [Unspecified complication of genitourinary prosthetic device, implant and graft, initial encounter] Onset: 10-04-2024 06-29-2022 Episodic Epilepsy; convulsions (2 sources) Seizure 09-06-2024 Episodic Fluid and electrolyte disorders (11 sources) Dehydration; Translations: [Dehydration] 05-19-2024 Episodic Genitourinary symptoms and ill-defined conditions (20 sources) Mixed incontinence; Translations: [Incontinence] Onset: 10-28-2021 Chronic Genitourinary symptoms and ill-defined conditions (20 sources) Retention of urine; Translations: [Retention of urine, unspecified] Onset: 10-28-2021 Episodic Headache; including migraine (14 sources) Headache; Translations: [Headache] 10-17-2023 Episodic Immunizations and screening for infectious disease (20 sources) Other specified abnormal immunological findings in serum; Translations: [Elevated serum immunoglobulin free light chains] 12-12-2021 Episodic Menopausal disorders (20 sources) Postmenopausal bleeding; Translations: [Postmenopausal bleeding] 11-21-2022 Chronic Mood disorders (2 sources) Depressive disorder 09-06-2024 Chronic Multiple sclerosis (20 sources) Multiple sclerosis; 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] Onset: 10-04-2024 10-28-2021 Chronic Nonspecific chest pain (12 sources) Atypical chest pain; Translations: [Other chest pain] 10-04-2024 Episodic Osteoporosis (3 sources) Osteoporosis; Translations: [Age-related osteoporosis without current pathological fracture] Onset: 10-27-2024 09-06-2024 Chronic Other circulatory disease (9 sources) Low blood pressure; Translations: [Hypotension, unspecified] 05-19-2024 Episodic Other circulatory disease (2 sources) Hypotension, unspecified; Translations: [Hypotension, unspecified] 05-23-2024 Episodic Other diseases of bladder and urethra (6 sources) Neurogenic dysfunction of the urinary bladder; Translations: [Neuromuscular dysfunction of bladder, unspecified] Onset: 05-05-2022 Chronic Other diseases of bladder and urethra (18 sources) Neurogenic bladder; Translations: [Neuromuscular dysfunction of bladder, unspecified] 12-02-2021 Chronic Other diseases of bladder and urethra (7 sources) Neuromuscular dysfunction of bladder, unspecified; Translations: [Neurogenic bladder NOS] Onset: 10-04-2024 10-04-2024 Chronic Other diseases of kidney and ureters (8 sources) Hydroureter; Translations: [Hydroureter] Onset: 10-28-2021 Episodic Other gastrointestinal disorders (1 source) Constipation, unspecified; Translations: [Constipation, unspecified] Onset: 10-28-2021 Episodic Other gastrointestinal disorders (7 sources) Constipation 12-02-2021 Episodic Other injuries and conditions due to external causes (4 sources) Foreign body in bladder; Translations: [Foreign body in bladder, initial encounter] Onset: 09-15-2022 Episodic Other screening for suspected conditions (not mental disorders or infectious disease) (12 sources) Abnormal findings on diagnostic imaging of other parts of musculoskeletal system; Translations: [Raised cardiac enzyme or marker] Onset: 07-14-2021 Resolved: 07-14-2021 Episodic Paralysis (20 sources) Paraparesis; Translations: [Paraplegia, unspecified] 12-12-2021 Chronic Pathological fracture (5 sources) Pathological fracture of vertebra due to osteoporosis; Translations: [Other osteoporosis with current pathological fracture, vertebra(e), initial encounter for fracture] 05-19-2024 Episodic Peripheral and visceral atherosclerosis (5 sources) Abdominal aortic atherosclerosis; Translations: [Atherosclerosis of aorta] Onset: 05-19-2024 05-19-2024 Chronic Transient cerebral ischemia (2 sources) Transient cerebral ischemia 09-06-2024 Chronic Unclassified (1 source) 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; Translations: [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] Onset: 10-04-2024 Urinary tract infections (20 sources) Urinary tract infectious disease; Translations: [Urinary tract infection, site not specified] Onset: 05-05-2022 Episodic Past or Other Problems Problem Classification Problem Date Documented Date Episodic/Chronic Abdominal pain (10 sources) Left lower quadrant pain; Translations: [Left lower quadrant pain] Onset: 05-04-2024 Resolved: 05-19-2024 05-04-2024 Episodic Acute and unspecified renal failure (20 sources) Acute renal failure syndrome; Translations: [Acute kidney failure, unspecified] Onset: 05-18-2024 05-18-2024 Episodic Bacterial infection; unspecified site (20 sources) Bacteremia caused by Gram-negative bacteria; Translations: [Bacteremia] Onset: 05-18-2024 05-20-2024 Episodic Calculus of urinary tract (5 sources) Kidney stone; Translations: [Calculus of kidney] Onset: 05-19-2024 05-19-2024 Episodic Osteoarthritis (9 sources) Osteoarthritis of left knee joint; Translations: [Unilateral primary osteoarthritis, left knee] Onset: 02-15-2023 Resolved: 05-19-2024 05-04-2024 Chronic Other infections; including parasitic (5 sources) Personal history of other infectious and parasitic diseases; Translations: [Personal history of other infectious and parasitic diseases] Onset: 05-19-2024 05-19-2024 Episodic Residual codes; unclassified (5 sources) Urinary catheter in situ; Translations: [Presence of other specified devices] Onset: 05-19-2024 05-19-2024 Episodic Residual codes; unclassified (5 sources) H/O Spinal surgery; Translations: [Other specified postprocedural states] Onset: 05-19-2024 05-19-2024 Episodic Septicemia (except in labor) (20 sources) Sepsis; Translations: [Sepsis, unspecified organism] Onset: 05-18-2024 05-18-2024 Episodic Results Test Name Value Interpretation Reference Range Facility [facility] [address] Echocardiogram Signed Patient: Alessandra Hardy MR#: [id number] : 1960 Acct:[id number] Age/Sex: 64 / F ADM Date: 11/10/24 Loc: Room: Type: [facility] Attending Dr: Tammy Allan MD Ordering Provider: Tammy Allan MD Date of Service: 11/10/24[facility]: ABN EKG, PREOP, TIA, SEIZURE Copies to: MD Tammy Hurst MD Alessandra Alonzo Patient Location: : 1960 Gender: Female (MM/DD/YYYY) Age: 64 Years Ordering Physician: Tammy Allan Height: 69 in Weight: 225.974 lb Performed By: TETE Oliver BSA: 2.18 m2 BP: 126 / 82 mmHg HR: 78 bpm Reason For Study: ABN EKG, PREOP, TIA, SEIZURE History: seizure, syncope, TIA, morbid obesity + -+ Interpretation Summary Ejection Fraction = 60-65%. The left ventricular size and thickness are normal. The left ventricular wall motion is normal. A variety of Doppler measurements indicate normal left ventricular diastolic function. There is trace tricuspid regurgitation. There is no comparison study available. Procedure/Quality: A two-dimensional transthoracic echocardiogram with color flow, Doppler and injection of aggitated saline was performed. The study was technically good in quality. Left Ventricle: The left ventricular size and thickness are normal. Ejection Fraction = 60-65%. A variety of Doppler measurements indicate normal left ventricular diastolic function. The left ventricular wall motion is normal. Left Atrium: The left atrium appears normal in size. Right Atrium: The right atrium appears normal in size. Right Ventricle: The right ventricle is normal in size and function. Aortic Valve: The aortic valve is normal in structure. No hemodynamically significant valvular aortic stenosis. No aortic regurgitation is present. Mitral Valve: The mitral valve is normal in structure. No significant mitral valve stenosis. There is no mitral regurgitation noted. Tricuspid Valve: The tricuspid valve is normal in structure. There is trace tricuspid regurgitation. Pulmonic Valve: The pulmonic valve is not well visualized. No significant pulmonic regurgitation. Arteries: The aortic root is normal size. Pericardium/Pleura: No pericardial effusion seen. IVC/Hepatic Veins: The inferior vena cava is normal in size, with a normal collapsibility index. MMode/2D Measurements Calculations IVSd (0.7-1.1 cm): 1.08 cm LVIDd (3.7-5.4 cm): 4.4 cm LVPWd (0.7-1.1 cm): 1.09 cm LVIDs (2.3-3.6 cm): 3.1 cm LA dimension (2.3-4.0 cm): 4.0 Ao root diam (2.0-3.2 cm): 3.3 cm cm FS: 29.2 % Ao root area: 8.3 cm2 EDV(Teich): 86.6 ml LVOT diam: 1.99 cm ESV(Teich): 37.8 ml LVOT area: 3.1 cm2 EF(Teich): 56.3 % LAV(MOD-sp2): 17.8 ml LA A2 area: 7.6 cm2 LA length (vol): 2.7 cm Doppler Measurements Calculations MV E max kurt: 77.7 cm/sec Ao V2 max: 158.8 cm/sec MV A max kurt: 67.3 cm/sec Ao max P.1 mmHg MV V2 VTI: 17.6 cm Ao mean P.1 mmHg MV dec time: 0.15 sec Ao V2 mean: 118.7 cm/sec MV dec slope: 507.1 cm/sec?? Ao V2 VTI: 26.6 cm E/E' lat: 6.6 JUDY(I,D): 1.93 cm2 E/E' med: 11.3 JUDY(V,D): 1.44 cm2 TV max P.0 mmHg LV V1 max: 73.3 cm/sec TR max kurt: 224.0 cm/sec LV V1 max P.15 mmHg TR max P.1 mmHg LV V1 mean: 53.9 cm/sec RAP systole: 5.0 mmHg LV V1 mean P.31 mmHg LV V1 VTI: 16.5 cm + + + + + --+ + : Electronically : : signed by: Kyra : : : : Kush : : : : on: 11/10/2024, : : : : 8:53 PM : + --+ + Transcribed By: SCV Performed At: 11/10/24 1354 Signed By: Kyra Currie MD 11/10/242052 Normal [facility] ALL CBC WITH AUTO DIFFon BASOPHILS ABSOLUTE AUTO [address] [facility] Basophils/100 WBC (Bld) 0.6 % 0.2 - 2.0 % [facility] Eosinophils/100 WBC (Bld) 6.9 % 0.9 - 7.0 % [facility] Erythrocyte distribution width (RBC) [Ratio] 14.3 % 11.0 - 15.0 % [facility] Hematocrit (Bld) [Volume fraction] 38.7 % 36.0 - 48.0 % [facility] Hemoglobin (Bld) [Mass/Vol] 12.3 g/dL 12.0 - 16.0 g/dL [facility] IMMATURE GRANULOCYTES ABS AUTO 0.05 High [facility] Immature granulocytes/100 WBC (Bld) 0.8 % High 0.0 - 0.5 % [facility] Interpretation and review of laboratory results Abnormal [facility] LYMPHOCYTES ABSOLUTE AUTO 1.7 [facility] Lymphocytes/100 WBC (Bld) 26.7 % 20.5 - 60.0 % [facility] MCH (RBC) [Entitic mass] 29.4 pg 26. 7 - 34.0 pg [facility] MCHC (RBC) [Mass/Vol] 31.8 g/dL 29.9 - 35.2 g/dL [facility] MCV (RBC) [Entitic vol] 92.6 fL 81.0 - 99.0 fL [facility]OC[facility]TES [facility]OL[facility] Monocytes/100 WBC (Bld) 7.4 % 1.7 - 12.0 % [facility] NEUTROPHILS ABSOLUTE AUTO 3.7 [facility] Neutrophils/100 WBC (Bld) 57.6 % 43.0 - 75.0 % [facility] Platelet mean volume (Bld) [Entitic vol] 8.6 fL Low 9.5 - 13.5 fL [facility] TBH EO # 0.5 [facility] TB PLT 420 [facility] TB RBC 4.18 Low [facility] WBC 6.5 [facility] ECG 12-LEADon 11-01-2024 [place] [address] Electrocardiograph Report Signed Patient: ALESSANDRA HARDY MR#: [id number] : 1960 Acct:[id number] Age/Sex: 64 / F ADM Date: 11/01/24 Loc: [facility] Attending Dr: Tammy Allan M.D. Ordering Physician: Tammy Allan M.D. Date of Service: 11/01/24 Procedure(s): ECG 12 lead Accession Number(s): [id number] cc: [facility] Test Date: 2024-11-01 Pat Name: ALESSANDRA HARDY Department: Room: - Gender: Female Reception Interviewer: : 1960 Requested By: TAMMY ALLAN Order Number: [id number] [place] MD: KYRA SOLORZANO M.D. Measurements Intervals [place] Rate: 84 P: 29 PA: 141 QRS: -24 QRSD: 109 T: 17 QT: 396 QTc: 468 Interpretive Statements SINUS RHYTHM BORDERLINE LEFT AXIS DEVIATION [QRS AXIS < -20] LOW QRS VOLTAGE IN PRECORDIAL LEADS [QRS DEFLECTION < 1.0 mV IN CHEST LEADS] PATTERN CONSISTENT WITH PULMONARY DISEASE NONSPECIFIC ST T-WAVE ABNORMALITY Abnormal ECG No previous ECG available for comparison Electronically Signed On 11-01-2024 17:28:05 EDT by KYRA SOLORZANO M.D. Dictated By: KYRA SOLORZANO Signed By: 11/01/24 1728 DD/ 0848 TD/TT: Community Marketing Manager: [facility] Kia Rosen MD - 11/01/2024 [place] [address] Electrocardiograph Report Signed Patient: ALESSANDRA HARDY MR#: [id number] : 1960 Acct:[id number] Age/Sex: 64 / F ADM Date: 11/01/24 Loc: PST Attending Dr: Tammy Allan M.D. Ordering Physician: Tammy Allan M.D. Date of Service: 11/01/24 Procedure(s): ECG 12 lead Accession Number(s): [id number] cc: [facility] Test Date: 2024-11-01 Pat Name: ALESSANDRA HARDY Department: Room: - Gender: Female Reception Interviewer: : 1960 Requested By: TAMMY ALLAN Order Number: [id number] Reading MD: KYRA SOLORZANO M.D. Measurements Intervals [place] Rate: 84 P: 29 PA: 141 QRS: -24 QRSD: 109 T: 17 QT: 396 QTc: 468 Interpretive Statements SINUS RHYTHM BORDERLINE LEFT AXIS DEVIATION [QRS AXIS < -20] LOW QRS VOLTAGE IN PRECORDIAL LEADS [QRS DEFLECTION < 1.0 mV IN CHEST LEADS] PATTERN CONSISTENT WITH PULMONARY DISEASE NONSPECIFIC ST T-WAVE ABNORMALITY Abnormal ECG No previous ECG available for comparison Electronically Signed On 11-01-2024 17:28:05 EDT by KYRA SOLORZANO M.D. Dictated By: KYRA SOLORZANO Signed By: 11/01/24 1728 DD/ 0848 TD/TT: Community Marketing Manager: [facility] Radiology Study observation (narrative) [facility] ECG 12-LEADOrdered By: Radio logist Radiology on 11-01-2024 [facility] Work Phone: Urine Cultureon 11-01-2024 Bacteria identified Cx Nom (U) ORGANISM: Escherichia coli (ESBL) (O:ESCCOLESBL) [place] Count >100,000 ORGANISM: Pseudomonas aeruginosa (O:PSEAER) [place] Count 75,000 Aerobic DESMOND Charge (NMIC56) SUSCEPTIBILITY ORGANISM: O:ESCCOLESBL ANTIBIOTIC INTERPRETATION DESMOND Amikacin S <16 Amoxacillin/K Clavulanate S <8 Ampicillin R* >16 Ampicillin/Sulbactam I 1616/8 Aztreonam ESBL >16 Cefazolin R* >16 Cefepime R* 16 Ceftazidime ESBL 16 Ceftazidime/Avibactam S <4 Ceftolozane/Tazobactam S <2 Ceftriaxone ESBL >32 Cefuroxime R* >16 Ciprofloxacin R >2 Ertapenem S <0.5 Gentamicin S <2 Levofloxacin R >4 Meropenem S <1 Meropenem/Vaborbactam S <2 Nitrofurantoin S <32 Piperacillin/Tazobactam S <8 Tetracycline S <4 Tigecycline S <2 Tobramycin S <2 Trimethoprim/Sulfamethoxa zole S <0.5 Aerobic DESMOND Charge (NMIC56) SUSCEPTIBILITY ORGANISM: O:PSEAER ANTIBIOTIC INTERPRETATION DESMOND Amikacin S <16 Aztreonam IB <4 Cefepime S <2 Ceftazidime IB 4 Ceftazidime/Avibactam S <4 Ceftolozane/Tazobactam S <2 Ciprofloxacin S <0.25 Gentamicin S 4 Levofloxacin S <0.5 Meropenem S <1 Piperacillin/Tazobactam IB <8 Tobramycin S <2 S = SUSCEPTIBLE I = INTERMEDIATE R = RESISTANT BLANK = DATA NOT AVAILABLE, OR DRUG NOT ADVISABLE OR TESTED R* = RESISTANCE DUE TO EXTENDED SPECTRUM BETA-LACTAMASES ESBL = EXTENDED SPECTRUM BETA-LACTAMASE TFG = THYMIDINE-DEPENDENT STRAIN YO = BETA-LACTAMASE POSITIVE IB = INDUCIBLE BETA-LACTAMASE. APPEARS IN PLACE OF 'S' WITH SPECIES KNOWN TO POSSESS INDUCIBLE BETA-LACTAMASES. POTENTIALLY THEY MAY BECOME RESISTANT TO ALL B-LACTAM DRUGS. PERFORMED BY: [facility] [address] [place] [address] PATHOLOGIST BRAND ENGINEER DEBORAH RAMIREZ M.D. Normal [facility] Comment on above: Performed By: #### S CAN CBC, CMP, MG, PHOS #### [facility] [address] Urine cultureOrdered By: Giovanna Allan on 11-01-2024 Bacteria identified Cx Nom (U) Abnormal [facility] Bacteria identified Cx Nom (U) Abnormal [facility] Pancreatic elastase, fecalon 10-26-2024 Interpretation and review of laboratory results Abnormal [facility] PANCREATIC ELASTASE, STOOL 39 Low 200 - PINF [facility] Comment on above: Result Units: ug Natali st./g Severe Pancreatic Insufficiency: <100 Moderate Pancreatic Insufficiency: 100 - 200 Normal: >200 Performed at: - [facility] [id number] [place] Clerk: Teresa Rodriguez MD, Phone: [phone] [facility] Elastase.pancreatic [Mass/ma ss] in StoolOrdered By: Neva Miller on 10-25-2024 Elastase.pancreatic (Stl) [Mass/Mass] Elastase.pancreatic [Mass/mass] in Stool Low >200 [facility] Comment on above: Result Units: ug Natali st./g Severe Pancreatic Insufficiency: <100 Moderate Pancreatic Insufficiency: 100 - 200 Normal: >200Performed at: - [facility] [id number] Director: Teresa Rodriguez MD, Phone: [phone] Pancreatic Elastase, Stoolon 10-25-2024 Pancreatic Elastase, Stool 39 Low >200 [facility] Comment on above: Result Comment: Resu lt Units: ug Elast./g Severe Pancreatic Insufficiency: <100 Moderate Pancreatic Insufficiency: 100 - 200 Normal: >200 Performed at: - [facility] [id number] [place] Clerk: Teresa Rodriguez MD, Phone: [phone] PERFORMED BY: [facility] [address] [place] [address] PATHOLOGIST BRAND ENGINEER DEBORAH RAMIREZ M.D. Performed By: #### E LASTASE STOOL ####[facility] , Ambulatory Visit Summaryon 0 10-18-2024 Ambulatory Visit Summary Ambulatory Visi t Summary ALESSANDRA HARDY :1960 Visit Date:10/18/2024 Ambulatory Visit Instructions Your Diagnosis Neurogenic bladder Your Care Team Attending Physician - JERRELL EVANS, Tammy Burk Primary Care Physician - NEVA MILLER DO This Is Your Medications List Contact prescribing physician if questions or concerns acetaminophen (acetaminophen 500 mg Tab) albuterol (albuterol 0.083% Inh Nicole 3 mL) cholecalciferol (Vitamin D 1000 intl units (25 mcg) Tab) docusate (docusate sodium 100 mg Cap) fludrocortisone (fludrocortisone 0.1 mg Tab) fluoxetine (Prozac 10 mg Cap) lamotrigine (Lamictal 100 mg Tab) magnesium hydroxide (Milk of Magnesia) miconazole nortriptyline (nortriptyline 25 mg Cap) ocular lubricant (Artificial Tears) omeprazole (omeprazole 20 mg Cap-DR) oseltamivir (oseltamivir 75 mg Cap) pantoprazole (Protonix 20 mg Tab-DR) petrolatum topical (Vicks BabyRub topical ointment) sodium chloride (Sodium Chloride) Procedures Performed Suprapubic catheter procedure (08/08/2024), Stent removal (09/15/2022), Cystoscopic insertion of ureteric stent (05/26/2022), Cystoscopy (12/02/2021). Discharge Vitals Heart Rate (Peripheral) 102 Blood Pressure 107/71 Height 174 cm Height 69 in Weight 95 kg Weight 209.439 lb BMI 31.38 Medications What How Much When Instructions Unchanged acetaminophen (acetaminophen 500 mg Tab) By Mouth Every 6 hours Contact prescribing physician if questions or concerns Unchanged albuterol (albuterol 0.083% Inh Nicole 3 mL) Contact prescribing physician if questions or concerns Unchanged cholecalciferol (Vitamin D 1000 intl units (25 mcg) Tab) By Mouth Every day Contact prescribing physician if questions or concerns Unchanged docusate (docusate sodium 100 mg Cap) 1 Capsules By Mouth 2 times a day as needed for for constipation Contact prescribing physician if questions or concerns Unchanged fludrocortisone (fludrocortisone 0.1 mg Tab) By Mouth Every day Contact prescribing physician if questions or concerns Unchanged fluoxetine (Prozac 10 mg Cap) By Mouth Every day Contact prescribing physician if questions or concerns Unchanged lamotrigine (Lamictal 100 mg Tab) By Mouth 2 times a day Contact prescribing physician if questions or concerns Unchanged magnesium hydroxide (Milk of Magnesia) By Mouth Contact prescribing physician if questions or concerns Unchanged miconazole Buccal Every day Contact prescribing physician if questions or concerns Unchanged nortriptyline (nortriptyline 25 mg Cap) By Mouth 3 times a day Contact prescribing physician if questions or concerns Unchanged ocular lubricant (Artificial Tears) Both eyes Contact prescribing physician if questions or concerns Unchanged omeprazole (omeprazole 20 mg Cap-DR) 1 Capsules By Mouth Every day Contact prescribing physician if questions or concerns Unchanged oseltamivir (oseltamivir 75 mg Cap) 1 Capsules By Mouth 2 times a day Contact prescribing physician if questions or concerns Unchanged pantoprazole (Protonix 20 mg Tab-DR) By Mouth Every day Contact prescribing physician if questions or concerns Unchanged petrolatum topical (Vicks BabyRub topical ointment) Contact prescribing physician if questions or concerns Unchanged sodium chloride (Sodium Chloride) Contact prescribing physician if questions or concerns Allergies aspirin (Unknown, Unknown Reaction) Problems Ongoing - Any problem that you are currently receiving treatment for. Constipation Depression Mixed incontinence MS (multiple sclerosis) Neurogenic bladder Osteoporosis Seizures TIA (transient ischemic attack) Patient Survey You may receive a survey via text or e-mail asking about your office visit. Please share your experience with us by completing your survey. We appreciate your feedback and thank you for choosing us for your care. Normal [facility] Urology Office/Clinic Noteon 10-18-2024 Urology Office/Clinic Note Urology Office/Clinic Note Chief Complaint f/u sp removal HPI Staff 64 year old female presents for ER f/u SP taken out 10/04/24 at [facility] with Dr. Jennings would like to discuss replacement of SP tube. Prev dx: neurogenic bladder Pt has folley, some abdominal pain with significant bruising to lower abdomen and some SOB History of Present Illness Tests reviewed: UA I have reviewed the previous health record information and history for this patient from Dr. Allan. I have reviewed and verified the staff HPI to be accurate for this encounter. Review of Systems PHQ Score Initial Depression Screen Score: 0 SCORE ROS - Provider Constitutional: denies weight loss, denies hot flashes. Eyes: denies eye problems. Gastrointestinal: denies nausea, denies vomiting. Cardiovascular: denies chest pain or angina. Integumentary: no dryness Musculoskeletal: denies musculoskeletal symptoms. ENMT: denies otolaryngeal symptoms. Respiratory: no shortness of breath. Heme/Lymph: denies easy bleeding tendency, denies easy bruising tendency. Psychiatric: no confusion, no anxiety. Genitourinary: See HPI. Physical Exam Vitals & Measurements HR: 102(Peripheral) BP: 107/71 HT: 174 cm HT: 69 in WT: 95 kg WT: 209.439 lb BMI: 31.38 General Appearance: alert, no distress, well nourished, well developed female. Assessment/Plan Alessandra 64 year old female presents for f/u. consulted with [facility] for surgery. Wants to discuss SP cath replacement. 1. Neurogenic bladder (N31.9: Neuromuscular dysfunction of bladder, unspecified) S/p cysto, PC SP tube placement 08/08/24. No sample provided for UA today, pt has SP tube. Patient was seen at ER for f/u SP taken out 10/04/24 at [facility] [place] with Dr. Jennings would like to discuss replacement of SP tube. Patient reports being seen on 10/03/24 and having our staff change her poole. States cath was giving her problems and became dislodged. Pt has poole, some abdominal pain with significant bruising to lower abdomen and some SOB Pt wishes to have suprapubic cath replaced. Discussed having SP reinserted under anesthesia Follow up Schedule SP insertion or sooner if needed. Pt understands and agrees with plan Follow-up With When Contact Information JERRELL EVANS, Tammy Burk, [address] [place] [address]- Additional Instructions: Follow up Schedule SP insertion or sooner if needed. Patient Education Overactive Bladder, Adult I, Ml Ramos, personally scribed for Dr. Allan on 10/18/2024 11:58:40. . Documentation recorded by the scribe, Ml Ramos, accurately reflects the services(s) I performed and decisions made by me. Authenticated by Dr. Allan on 10/18/2024 11:59:34. Problem List/Past Medical History Ongoing Constipation Depression Mixed incontinence MS (multiple sclerosis) Neurogenic bladder Osteoporosis Seizures TIA (transient ischemic attack) Historical No qualifying data Procedure/Surgical History Suprapubic catheter procedure (08/08/2024), Stent removal (09/15/2022), Cystoscopic insertion of ureteric stent (05/26/2022), Cystoscopy (12/02/2021). Medications acetaminophen 500 mg Tab, Oral, q6hr albuterol 0.083% Inh Nicole 3 mL Artificial Tears, Eye-Both docusate sodium 100 mg Cap, 100 mg= 1 cap(s), Oral, BID, PRN fludrocortisone 0.1 mg Tab, Oral, Daily Lamictal 100 mg Tab, Oral, BID miconazole, Buccal, Daily Milk of Magnesia, Oral nortriptyline 25 mg Cap, Oral, TID omeprazole 20 mg Cap-DR, 20 mg= 1 cap(s), Oral, Daily oseltamivir 75 mg Cap, 75 mg= 1 cap(s), Oral, BID Protonix 20 mg Tab-DR, Oral, Daily Prozac 10 mg Cap, Oral, Daily Sodium Chloride Vicks BabyRub topical ointment Vitamin D 1000 intl units (25 mcg) Tab, Oral, Daily Allergies aspirin (Unknown, Unknown Reaction) Social History Tobacco Former smoker, quit more than 30 days ago Tobacco Use:. Never Smokeless Tobacco Use:. Cigarettes, 10/18/2024 Family History Family history is unknown Immunizations Vaccine Date Status SARS-CoV-2 (COVID-19) [id number] 04/29/2022 Recorded SARS-CoV-2 (COVID-19) mRNA-1273 vaccine 01/06/2022 Recorded SARS-CoV-2 (COVID-19) mRNA-1273 vaccine 06/11/2021 Recorded SARS-CoV-2 (COVID-19) mRNA-1273 vaccine 11/26/2020 Recorded SARS-CoV-2 (COVID-19) mRNA-1273 vaccine 10/29/2020 Recorded influenza virus vaccine, inactivated 04/30/2020 Recorded influenza virus vaccine, inactivated 03/30/2019 Recorded influenza, unspecified formulation 03/22/2019 Recorded zoster vaccine, inactivated 07/08/2018 Recorded influenza virus vaccine, inactivated 05/09/2018 Recorded zoster vaccine, inactivated 11/29/2017 Recorded influenza virus vaccine, inactivated 03/08/2017 Recorded influenza, unspecified formulation 05/11/2016 Recorded influenza virus vaccine, inactivated 04/13/2016 Recorded influenza virus vaccine, inactivated 04/18/2015 Recorded pneumococcal 23-valent vaccine (more content not included)... Normal [facility] Comment on above: Result Comment: Elec tronically Signed By: Tammy ALLAN MD\.br\Date and Time Signed: 10/18/24 11:59 EDT\.br\Electronically Co-Signed By: Ml Raoms\.br\Date and Time Co-Signed: 10/18/24 11:59 EDT Alanine aminotransferase [En zymatic activity/volume] in Serum or PlasmaOrdered By: Luis Santoro on 10-08-2024 ALT [Catalytic activity/Vol] Alanine aminotransferase [Enzymatic activity/volume] in Serum or Plasma Low 7-52 [facility] Albumin [Mass/volume] in Ser um or Plasma by Bromocresol green (BCG) dye binding methoOrdered By: Luis Santoro on 10-08-2024 Albumin BCG dye [Mass/Vol] Albumin [Mass/volume] in Serum or Plasma by Bromocresol green (BCG) dye binding metho Low 3.5-5.7 [facility] Alkaline phosphatase [Enzyma tic activity/volume] in Serum or PlasmaOrdered By: Luis Santoro on 10-08-2024 ALP [Catalytic activity/Vol] Alkaline phosphatase [Enzymatic activity/volume] in Serum or Plasma 34-104 [facility] Aspartate aminotransferase [ Enzymatic activity/volume] in Serum or PlasmaOrdered By: Luis Santoro on 10-08-2024 AST [Catalytic activity/Vol] Aspartate aminotransferase [Enzymatic activity/volume] in Serum or Plasma Low 13-39 [facility] Basophils Auto (Bld) [#/Vol] Ordered By: Luis Santoro on 10-08-2024 Basophils (Bld) [#/Vol] Automated basophil count 0.0-0.2 [facility] Basophils/100 WBC Auto (Bld) Ordered By: Luis Santoro on 03-09-2025 Basophils/100 WBC (Bld) Automated basophil % . [facility] Bilirubin.total [Mass/volume ] in Serum or PlasmaOrdered By: Luis Santoor on 10-08-2024 Bilirubin [Mass/Vol] Bilirubin.total [Mass/volume] in Serum or Plasma 0.3-1.[address] [facility] [address] abdomen pelvis wo conon 0 10-08-2024 CT abdomen pelvis wo con [facility] [place] [address] [place] [address] CT Scan Report Signed Patient: Alessandra Hardy MR#: [id number] : 1960 Acct:[id number] Age/Sex: 64 / F ADM Date: 10/04/24 Loc: Room: [address] [place] [address] Type: ADM IN Attending Dr: Luis Santoro MD Copies to: Luis Santoro MD Ordering Provider: Luis Santoro MD Date of Service: 10/08/24 CT/CT abdomen pelvis wo con: Tachycardia, rule out intraabdominal process CT Abdomen and Pelvis withoutcontrast TECHNIQUE: Axial imaging with 2-D reconstruction. . The CT exam was performed using one or more the following dose reduction techniques: Automated exposure control, adjustment of the MA and/or Kv according to patient size, or use of the iterative reconstruction technique. COMPARISON: 10/04/2024 History: Difficulty with a changing of suprapubic catheter. Question positioning. Tachycardia. LIMITATIONS: None LOWER THORAX developing small pleural effusions with adjacent consolidation/atelectasis greater on the right. The right hemidiaphragm elevation redemonstrated. LIVER: Hepatic steatosis. GALLBLADDER: No gallbladder abnormality identified. BILE DUCTS: No dilatation SPLEEN: Unremarkable PANCREAS: Unremarkable ADRENAL GLANDS: Unremarkable KIDNEYS:Mild perinephric stranding. 5. No distinctive focal lesion identified. Contrast present within the intrarenal collecting systems and proximal ureters. 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 Mild hydronephrosis of the upper lobe pole moieties. Suspected wall thickening involving the proximal right ureter. Wall thickening involving the left renal pelvis and proximal ureter. Nondistended left intrarenal collecting system. No obstructing ureteral stone. The stone in the right renal pelvis is obscured. A punctate left renal stone obscured. AORTA: No abdominal aortic aneurysm identified. Mild atherosclerosis. RETROPERITONEUM: No significant retroperitoneal abnormalities identified. MESENTERY:Unremarkable SMALL BOWEL: Interval nondistention of multiple small bowel loops with multiple fluid levels. It measures up to 4.0 cm. Potential smooth transition identified in the terminal ileum. No obvious obstructing lesion. APPENDIX: The appendix is not seen. No pericecal inflammatory changes identified. COLON: Nondistended colon. URINARY BLADDER: Poole catheter and nondistended urinary bladder. Urinary bladder wall thickening present. Underdistention versus cystitis. REPRODUCTIVE SYSTEM: Reproductive structures are unremarkable. PNEUMOPERITONEUM: Small foci of free air in the upper abdomen likely related to recent suprapubic catheterization. PERITONEAL FLUID:None BONY STRUCTURES: Right hip fixation hardware. Lumbar degeneration with mild scoliosis. ABDOMINAL WALL: Unremarkable tract of the suprapubic catheter. No soft tissue fluid collections. CT/CT abdomen pelvis wo con IMPRESSION: Increasing basilar parenchymal changes with developing small pleural effusions. Scattered bilateral nephrolithiasis. Similar right hydronephrosis. Suprapubic catheter removed. Continued small foci of free air likely postsurgical. Slight increase of pelvic free fluid. Intermediate hyperdensity. May represent small amount of hemoperitoneum. No active bleeding present. Developing dilated small bowel loops with smooth transition at the terminal ileum. Likely represents ileus. No obvious findings of bowel perforation.. Impression dictated by: Woody Burkett M.D.10/08/2024 8:02 AM Dictation Location: [place] [address] Transcribed By: [facility] 10/08/24 0802 Dictated By: Woody Burkett DO 10/08/24 0747 Signed By: 10/08/24 0802 Normal [facility] Calcium [Mass/volume] in Ser um or PlasmaOrdered By: Luis Santoro on 10-08-2024 Calcium [Mass/Vol] Calcium [Mass/volume ] in Serum or Plasma Low 8.6-10.3 [facility] Carbon dioxide, total [Moles /volume] in Serum or PlasmaOrdered By: Luis Santoro on 10-08-2024 CO2 [Moles/Vol] Carbon dioxide, tota l [Moles/volume] in Serum or Plasma 21.0-31.0 [facility] Chloride [Moles/volume] in S black or PlasmaOrdered By: Luis Santoro on 10-08-2024 Chloride [Moles/Vol] Chloride [Moles/vol ume] in Serum or Plasma 98-107 [facility] Complete Blood Count Auto Di ffon 10-08-2024 Basophils (Bld) [#/Vol] 0.1 10*3/uL Normal 0.0-0.2 [facility] Comment on above: Result Comment: PERF ORMED BY: [place] [address] PATHOLOGIST BRAND ENGINEER DEBORAH RAMIREZ M.D. Performed By: #### S CAN CBC, CMP, MG, PHOS #### [address] Basophils/100 WBC (Bld) 1.0 % Normal . [facility] Comment on above: Performed By: #### S CAN CBC, CMP, MG, PHOS #### [address] Eosinophils (Bld) [#/Vol] 0.4 10*3/uL Normal 0.0-0.45 [facility] Comment on above: Performed By: #### S CAN CBC, CMP, MG, PHOS #### [address] Eosinophils/100 WBC (Bld) 4.4 % Normal . [facility] Comment on above: Performed By: #### S CAN CBC, CMP, MG, PHOS #### [address] Erythrocyte distribution width (RBC) [Ratio] 14.0 % Normal 11.9-15.3 [facility] Comment on above: Performed By: #### S CAN CBC, CMP, MG, PHOS #### [address] Hematocrit (Bld) [Volume fraction] 39.3 % Normal 34.0-46.4 [facility] Comment on above: Performed By: #### S CAN CBC, CMP, MG, PHOS #### [place] [id number] [place] Hemoglobin (Bld) [Mass/Vol] 13.3 g/dL Normal 11.8-15.4 [facility] Comment on above: Performed By: #### S CAN CBC, CMP, MG, PHOS #### [address] Lymphocytes (Bld) [#/Vol] 2.0 10*3/uL Normal 1.00-4.8 [facility] Comment on above: Performed By: #### S CAN CBC, CMP, MG, PHOS #### [address] Lymphocytes/100 WBC (Bld) 19.8 % Normal . [facility] Comment on above: Performed By: #### S CAN CBC, CMP, MG, PHOS #### [address] MCH (RBC) [Entitic mass] 30.2 pg Normal 24.7-34.3 [facility] Comment on above: Performed By: #### S CAN CBC, CMP, MG, PHOS #### [address] MCV (RBC) [Entitic vol] 89.1 fL Normal 80-100 [facility] Comment on above: Performed By: #### S CAN CBC, CMP, MG, PHOS #### [address] Mean Corpuscular HGB Conc 33.9 g/dL Normal 32.0-35.0 [facility] Comment on above: Performed By: #### S CAN CBC, CMP, MG, PHOS #### [address] Monocytes (Bld) [#/Vol] 0.8 10*3/uL Normal 0.0-0.8 [facility] Comment on above: Performed By: #### S CAN CBC, CMP, MG, PHOS #### [address] Monocytes/100 WBC (Bld) 7.9 % Normal . [facility] Comment on above: Performed By: #### S CAN CBC, CMP, MG, PHOS #### [address] Neutrophils (Bld) [#/Vol] 6.8 10*3/uL Normal 1.8-7.7 [facility] Comment on above: Performed By: #### S CAN CBC, CMP, MG, PHOS #### [address] Neutrophils/100 WBC (Bld) 66.9 % Normal . [facility] Comment on above: Performed By: #### S CAN CBC, CMP, MG, PHOS #### [address] NRBC% 0.0 /100{WBC} Normal 0-0.5 [facility] Comment on above: Performed By: #### S CAN CBC, CMP, MG, PHOS #### [address] Platelet mean volume (Bld) [Entitic vol] 7.5 fL Normal 6.3-10.7 [facility] Comment on above: Performed By: #### S CAN CBC, CMP, MG, PHOS #### [address] Platelets (Bld) [#/Vol] 361 10*3/uL Normal 150-450 [facility] Comment on above: Performed By: #### S CAN CBC, CMP, MG, PHOS #### [address] RBC (Bld) [#/Vol] 4.41 10*6/uL Normal 3.60-5.00 [facility] Comment on above: Performed By: #### S CAN CBC, CMP, MG, PHOS #### [address] WBC (Bld) [#/Vol] 10.1 10*3/uL Normal 3.8-11.6 [facility] Comment on above: Performed By: #### S CAN CBC, CMP, MG, PHOS #### [address] Comprehensive Metabolic Pane dwayne 10-08-2024 Albumin [Mass/Vol] 2.8 g/dL Low 3.5-5.7 [facility] Comment on above: Performed By: #### S CAN CBC, CMP, MG, PHOS #### [address] Albumin/Globulin [Mass ratio] 0.7 {ratio} Normal [facility] Comment on above: Performed By: #### S CAN CBC, CMP, MG, PHOS #### [address] ALP [Catalytic activity/Vol] 82 U/L Normal 34-104 [facility] Comment on above: Performed By: #### S CAN CBC, CMP, MG, PHOS #### [address] ALT [Catalytic activity/Vol] 6 U/L Low 7-52 [facility] Comment on above: Performed By: #### S CAN CBC, CMP, MG, PHOS #### [address] Anion gap [Moles/Vol] 10.2 mmol/L Normal 6.0-15.0 [facility] Comment on above: Performed By: #### S CAN CBC, CMP, MG, PHOS #### [address] AST [Catalytic activity/Vol] 12 U/L Low 13-39 [facility] Comment on above: Performed By: #### S CAN CBC, CMP, MG, PHOS #### [address] Bilirubin [Mass/Vol] 0.5 mg/dL Normal 0.3-1.0 [facility] Comment on above: Performed By: #### S CAN CBC, CMP, MG, PHOS #### [address] Calcium [Mass/Vol] 8.4 mg/dL Low 8.6-10.3 [facility] Comment on above: Performed By: #### S CAN CBC, CMP, MG, PHOS #### [address] Chloride [Moles/Vol] 107 mmol/L Normal 98-107 [facility] Comment on above: Performed By: #### S CAN CBC, CMP, MG, PHOS #### [address] CO2 [Moles/Vol] 24.2 mmol/L Normal 21.0-31.0 [facility] Comment on above: Performed By: #### S CAN CBC, CMP, MG, PHOS #### [address] Creatinine [Mass/Vol] 0.61 mg/dL Normal 0.60-1.20 [facility] [facility] Comment on above: Performed By: #### S CAN CBC, CMP, MG, PHOS #### [address] Creatinine Clr Calc Pharmacy 120.11 Normal [facility] Comment on above: Performed By: #### S CAN CBC, CMP, MG, PHOS #### [address] GFR/1.73 sq M.predicted MDRD (S/P/Bld) [Vol rate/Area] mL/min/{1.73_m2} Normal [facility] Comment on above: Performed By: #### S CAN CBC, CMP, MG, PHOS #### [address] Globulin (S) [Mass/Vol] 3.9 g/dL Normal T he [facility] Comment on above: Performed By: #### S CAN CBC, CMP, MG, PHOS #### [address] Glucose [Mass/Vol] 118 mg/dL High 70-100 [facility] Comment on above: Result Comment: [facility] Glucose Reference Range is dependent on time and content of last meal. Glucose of more than 200 mg/dL in a nonstressed, ambulatory subject supports the diagnosis of Diabetes Mellitus. ADA recommended reference range Performed By: #### S CAN CBC, CMP, MG, PHOS #### [address] Potassium [Moles/Vol] 3.4 mmol/L Low 3.5-5.1 [facility] Comment on above: Performed By: #### S CAN CBC, CMP, MG, PHOS #### [address] Protein [Mass/Vol] 6.7 g/dL Normal 6.4-8.9 [facility] Comment on above: Performed By: #### S CAN CBC, CMP, MG, PHOS #### [address] Sodium [Moles/Vol] 138 mmol/L Normal 136-145 [facility] Comment on above: Performed By: #### S CAN CBC, CMP, MG, PHOS #### [address] Urea nitrogen [Mass/Vol] 16 mg/dL Normal 7-25 [facility] Comment on above: Performed By: #### S CAN CBC, CMP, MG, PHOS #### [address] Creatinine [Mass/volume] in Serum or PlasmaOrdered By: Luis Santoro on 10-08-2024 Creatinine [Mass/Vol] Creatinine [Mass/v olume] in Serum or Plasma 0.60-1.20 [facility] Eosinophils Auto (Bld) [#/Vo l]Ordered By: Luis Santoro on 10-08-2024 Eosinophils (Bld) [#/Vol] Automated eosinophil count 0.0-0.45 [facility] Eosinophils/100 WBC Auto (Bl d)Ordered By: Luis Santoro on 10-08-2024 Eosinophils/100 WBC (Bld) Automated eosinophil % . [facility] Erythrocyte distribution wid th Auto (RBC) [Ratio]Ordered By: Luis Santoro on 10-08-2024 Erythrocyte distribution width (RBC) [Ratio] Erythrocyte distribution width [Ratio] by Automated count 11.9-15.3 [facility] Globulin Calc (S) [Mass/Vol] Ordered By: Luis Santoro on 10-08-2024 Globulin (S) [Mass/Vol] Serum globulin measurement by calculation (mass/volume) [facility] Glucose [Mass/volume] in Ser um or PlasmaOrdered By: Luis Santoro on 10-08-2024 Glucose [Mass/Vol] Glucose [Mass/volume ] in Serum or Plasma High 70-100 [facility] Comment on above: ADA recommended refe rence rangeRandom Glucose Reference Range is dependent on time and content of last meal. Glucose of more than 200 mg/dL in a nonstressed, ambulatory subject supports the diagnosis of Diabetes Mellitus. Hematocrit Auto (Bld) [Volum e fraction]Ordered By: Luis Santoro on 10-08-2024 Hematocrit (Bld) [Volume fraction] Hematocrit [Volume Fraction] of Blood by Automated count 34.0-46.4 [facility] Hemoglobin [Mass/volume] in BloodOrdered By: Luis Santoro on 10-08-2024 Hemoglobin (Bld) [Mass/Vol] Hemoglobin [Mass/volume] in Blood 11.8-15.4 [facility] Leukocytes [#/volume] correc tylor for nucleated erythrocytes in Blood by Automated counOrdered By: Luis Santoro on 10-08-2024 WBC corrected for nucl RBC Auto (Bld) [#/Vol] Leukocytes [#/volume] corrected for nucleated erythrocytes in Blood by Automated coun 3.8-11.6 [facility] Lymphocytes Auto (Bld) [#/Vo l]Ordered By: Luis Santoro on 10-08-2024 Lymphocytes (Bld) [#/Vol] Lymphocytes [#/volume] in Blood by Automated count 1.00-4.8 [facility] Lymphocytes/100 WBC Auto (Bl d)Ordered By: Luis Santoro on 10-08-2024 Lymphocytes/100 WBC (Bld) Lymphocytes/100 leukocytes in Blood by Automated count . [facility] MCH Auto (RBC) [Entitic mass ]Ordered By: Luis Santoro on 10-08-2024 MCH (RBC) [Entitic mass] MCH [Entitic ma ss] by Automated count 24.7-34.3 [facility] MCHC Auto (RBC) [Mass/Vol]Or dered By: Luis Santoro on 10-08-2024 MCHC (RBC) [Mass/Vol] MCHC [Mass/volume] by Automated count 32.0-35.0 [facility] MCV Auto (RBC) [Entitic vol] Ordered By: Luis Santoro on 10-08-2024 MCV (RBC) [Entitic vol] MCV [Entitic vol ume] by Automated count 80-100 [facility] Magnesiumon 10-08-2024 Magnesium [Mass/Vol] 1.9 mg/dL Normal 1.9-2.7 [facility] Comment on above: Result Comment: PERF ORMED BY: [address] [place] [address] PATHOLOGIST BRAND ENGINEER DEBORAH RAMIREZ M.D. Performed By: #### S CAN CBC, CMP, MG, PHOS #### [facility] [address] [place] [address] Magnesium [Mass/volume] in S black or PlasmaOrdered By: Luis Santoro on 10-08-2024 Magnesium [Mass/Vol] Magnesium [Mass/vol ume] in Serum or Plasma 1.9-2.7 [facility] Monocytes Auto (Bld) [#/Vol] Ordered By: Luis Santoro on 10-08-2024 Monocytes (Bld) [#/Vol] Automated blood monocyte count 0.0-0.8 [facility] Monocytes/100 WBC Auto (Bld) Ordered By: Luis Santoro on 10-08-2024 Monocytes/100 WBC (Bld) Automated monocyte % . [facility] Neutrophils Auto (Bld) [#/Vo l]Ordered By: Luis Santoro on 10-08-2024 Neutrophils (Bld) [#/Vol] Neutrophils [#/volume] in Blood by Automated count 1.8-7.7 [facility] Neutrophils/100 WBC Auto (Bl d)Ordered By: Luis Santoro on 10-08-2024 Neutrophils/100 WBC (Bld) Automated neutrophil % . [facility] No Panel InformationOrdered By: Luis Santoro on 10-08-2024 Estimated GFR (CKD-EPI) > 60.0 mL/Min [facility] Creatinine Clearance (Chem 120.11 [facility] Nucleated erythrocytes [Pres ence] in Blood by Automated countOrdered By: Luis Santoro on 10-08-2024 Nucleated RBC Auto Ql (Bld) Nucleated erythrocytes [Presence] in Blood by Automated count 0-0.5 [facility] Platelet mean volume Auto (B ld) [Entitic vol]Ordered By: Luis Santoro on 10-08-2024 Platelet mean volume (Bld) [Entitic vol] Platelet mean volume [Entitic volume] in Blood by Automated count 6.3-10.7 [facility] Platelets Auto (Bld) [#/Vol] Ordered By: Luis Santoro on 10-08-2024 Platelets (Bld) [#/Vol] Platelets [#/vol ume] in Blood by Automated count 150-450 [facility] Potassium [Moles/volume] in Serum or PlasmaOrdered By: Luis Satnoro on 10-08-2024 Potassium [Moles/Vol] Potassium [Moles/v olume] in Serum or Plasma Low 3.5-5.1 [facility] Protein [Mass/volume] in Ser um or PlasmaOrdered By: Luis Santoro on 10-08-2024 Protein [Mass/Vol] Protein [Mass/volume ] in Serum or Plasma 6.4-8.9 [facility] RBC Auto (Bld) [#/Vol]Ordere d By: Luis Santoro on 10-08-2024 RBC (Bld) [#/Vol] Erythrocytes [#/volu me] in Blood by Automated count 3.60-5.00 [facility] Serum or plasma albumin/glob ulin mass ratioOrdered By: Luis Santoro on 10-08-2024 Albumin/Globulin [Mass ratio] Serum or plasma albumin/globulin mass ratio [facility] Serum or plasma anion gap de terminationOrdered By: Luis Santoro on 03-09-2025 Anion gap [Moles/Vol] Serum or plasma an ion gap determination 6.0-15.0 [facility] Sodium [Moles/volume] in Ser um or PlasmaOrdered By: Luis Santoro on 10-08-2024 Sodium [Moles/Vol] Sodium [Moles/volume ] in Serum or Plasma 136-145 [facility] Urea nitrogen [Mass/volume] in Serum or PlasmaOrdered By: Luis Santoro on 10-08-2024 Urea nitrogen [Mass/Vol] Urea nitrogen [Mass/volume] in Serum or Plasma 7-25 [facility] WBC Auto (Bld) [#/Vol]Ordere d By: Luis Santoro on 10-08-2024 WBC (Bld) [#/Vol] Leukocytes [#/volume ] in Blood by Automated count 3.8-11.[address] [facility] [address] angio chest PE protocolon 10-07-2024 CT angio chest PE protocol [facility] [place] [address] CT Scan Report Signed Patient: Alessandra Hardy MR#: [id number] : 1960 Acct:[id number] Age/Sex: 64 / F ADM Date: 10/04/24 Loc: Room: [address] [place] [address] Type: ADM IN Attending Dr: Luis Santoro MD Copies to: Luis Santoro MD Ordering Provider: Luis Santoro MD Date of Service: 10/07/24 CT/CT angio chest PE protocol: Rule out PE CTA Chest with PE protocol TECHNIQUE: Axial imaging with 2-D and 3-D reconstruction. 90cc of Isovue-[address] exam was performed using one or more the following dose reduction techniques: Automated exposure control, adjustment of the MA and/or Kv according to patient size, or use of the iterative reconstruction technique. History: Tachycardia. COMPARISON: 05/18/2024 THYROID: Unremarkable TRACHEA AND BRONCHI: Patent ESOPHAGUS: Unremarkable. HEART: Within normal limits PERICARDIAL EFFUSION: None CORONARY ARTERY CALCIFICATION: None MEDIASTINUM: No adenopathy. No pneumoperitoneum. No mediastinal hematoma. PULMONARY MARY: No hilar mass or adenopathy is seen. THORACIC AORTA Unremarkable PULMONARY EMBOLUS: None LUNG NODULE None LUNGS: The basilar atelectasis. Low lung volumes. PLEURAL EFFUSION: Small right pleural effusion. Minimal bilateral basilar atelectasis. PNEUMOTHORAX: No pneumothorax seen. CHEST WALL: No abnormality AXILLA: Unremarkable BONY STRUCTURES are stable thoracic compression deformities and vertebroplasty change. No new compression fracture. UPPER ABDOMEN: Upper abdominal ascites. Fluid-filled stomach. CT/CT angio chest PE protocol IMPRESSION: No acute pulmonary embolus. Basilar atelectasis. A minimal right pleural effusion. upper abdominal ascites. Impression dictated by: Woody Burkett M.D.10/07/2024 4:44 PM Dictation Location: [facility] Transcribed By: [facility] 10/07/24 1644 Dictated By: Woody Burkett DO 10/07/24 1636 Signed By: 10/07/24 1644 Normal [facility] Complete Blood Count Auto Di ffon 10-07-2024 Basophils (Bld) [#/Vol] 0.1 10*3/uL Normal 0.0-0.2 [facility] Comment on above: Result Comment: PERF ORMED BY: [place] [address] PATHOLOGIST BRAND ENGINEER DEBORAH RAMIREZ M.D. Performed By: #### S CAN CBC, CMP, MG, PHOS #### [facility] [address] [place] [address] [place] Basophils/100 WBC (Bld) 0.8 % Normal . T yong [facility] Comment on above: Performed By: #### S CAN CBC, CMP, MG, PHOS #### [facility] [address] [place] [address] [place] Eosinophils (Bld) [#/Vol] 0.4 10*3/uL Normal 0.0-0.45 [facility] Comment on above: Performed By: #### S CAN CBC, CMP, MG, PHOS #### [place] [address] [place] Eosinophils/100 WBC (Bld) 3.5 % Normal . [facility] Comment on above: Performed By: #### S CAN CBC, CMP, MG, PHOS #### [address] Erythrocyte distribution width (RBC) [Ratio] 14.0 % Normal 11.9-15.3 [facility] Comment on above: Performed By: #### S CAN CBC, CMP, MG, PHOS #### [address] Hematocrit (Bld) [Volume fraction] 41.0 % Normal 34.0-46.4 [facility] Comment on above: Performed By: #### S CAN CBC, CMP, MG, PHOS #### [address] Hemoglobin (Bld) [Mass/Vol] 13.8 g/dL Normal 11.8-15.4 [facility] Comment on above: Performed By: #### S CAN CBC, CMP, MG, PHOS #### [address] Lymphocytes (Bld) [#/Vol] 1.5 10*3/uL Normal 1.00-4.8 [facility] Comment on above: Performed By: #### S CAN CBC, CMP, MG, PHOS #### [address] Lymphocytes/100 WBC (Bld) 13.5 % Normal . [facility] Comment on above: Performed By: #### S CAN CBC, CMP, MG, PHOS #### [address] MCH (RBC) [Entitic mass] 30.2 pg Normal 24.7-34.3 [facility] Comment on above: Performed By: #### S CAN CBC, CMP, MG, PHOS #### [address] MCV (RBC) [Entitic vol] 89.6 fL Normal 80-100 T he [facility] Comment on above: Performed By: #### S CAN CBC, CMP, MG, PHOS #### [address] Mean Corpuscular HGB Conc 33.7 g/dL Normal 32.0-35.0 [facility] Comment on above: Performed By: #### S CAN CBC, CMP, MG, PHOS #### [address] Monocytes (Bld) [#/Vol] 1.0 10*3/uL High 0.0-0.8 [facility] Comment on above: Performed By: #### S CAN CBC, CMP, MG, PHOS #### [address] Monocytes/100 WBC (Bld) 8.7 % Normal . T he [facility] Comment on above: Performed By: #### S CAN CBC, CMP, MG, PHOS #### [address] Neutrophils (Bld) [#/Vol] 8.2 10*3/uL High 1.8-7.7 [facility] Comment on above: Performed By: #### S CAN CBC, CMP, MG, PHOS #### [address] Neutrophils/100 WBC (Bld) 73.5 % Normal . [facility] Comment on above: Performed By: #### S CAN CBC, CMP, MG, PHOS #### [address] NRBC% 0.0 /100{WBC} Normal 0-0.5 [facility] Comment on above: Performed By: #### S CAN CBC, CMP, MG, PHOS #### [address] Platelet mean volume (Bld) [Entitic vol] 7.4 fL Normal 6.3-10.7 [facility] Comment on above: Performed By: #### S CAN CBC, CMP, MG, PHOS #### [address] Platelets (Bld) [#/Vol] 310 10*3/uL Normal 150-450 [facility] Comment on above: Performed By: #### S CAN CBC, CMP, MG, PHOS #### [address] RBC (Bld) [#/Vol] 4.57 10*6/uL Normal 3.60-5.00 [facility] Comment on above: Performed By: #### S CAN CBC, CMP, MG, PHOS #### [address] WBC (Bld) [#/Vol] 11.2 10*3/uL Normal 3.8-11.6 [facility] Comment on above: Performed By: #### S CAN CBC, CMP, MG, PHOS #### [address] Comprehensive Metabolic Pane dwayne 10-07-2024 Albumin [Mass/Vol] 2.9 g/dL Low 3.5-5.7 [facility] Comment on above: Performed By: #### S CAN CBC, CMP, MG, PHOS #### [address] Albumin/Globulin [Mass ratio] 0.7 {ratio} Normal [facility] Comment on above: Performed By: #### S CAN CBC, CMP, MG, PHOS #### [address] ALP [Catalytic activity/Vol] 79 U/L Normal 34-104 [facility] Comment on above: Performed By: #### S CAN CBC, CMP, MG, PHOS #### [address] ALT [Catalytic activity/Vol] 6 U/L Low 7-52 [facility] Comment on above: Performed By: #### S CAN CBC, CMP, MG, PHOS #### [address] Anion gap [Moles/Vol] 11.1 mmol/L Normal 6.0-15.0 Th e [facility] Comment on above: Performed By: #### S CAN CBC, CMP, MG, PHOS #### [address] [place] [address] [place] AST [Catalytic activity/Vol] 13 U/L Normal 13-39 [facility] Comment on above: Performed By: #### S CAN CBC, CMP, MG, PHOS #### [address] Bilirubin [Mass/Vol] 0.6 mg/dL Normal 0.3-1.0 [facility] Comment on above: Performed By: #### S CAN CBC, CMP, MG, PHOS #### [address] Calcium [Mass/Vol] 8.5 mg/dL Low 8.6-10.3 [facility] Comment on above: Performed By: #### S CAN CBC, CMP, MG, PHOS #### [address] Chloride [Moles/Vol] 106 mmol/L Normal 98-107 [facility] Comment on above: Performed By: #### S CAN CBC, CMP, MG, PHOS #### [address] CO2 [Moles/Vol] 23.1 mmol/L Normal 21.0-31.0 [facility] Comment on above: Performed By: #### S CAN CBC, CMP, MG, PHOS #### [address] Creatinine [Mass/Vol] 0.57 mg/dL Low 0.60-1.20 [facility] Comment on above: Performed By: #### S CAN CBC, CMP, MG, PHOS #### [place] [address] [place] Creatinine Clr Calc Pharmacy 128.54 Normal [facility] Comment on above: Performed By: #### S CAN CBC, CMP, MG, PHOS #### [place] [address] [place] GFR/1.73 sq M.predicted MDRD (S/P/Bld) [Vol rate/Area] mL/min/{1.73_m2} Normal [facility] Comment on above: Performed By: #### S CAN CBC, CMP, MG, PHOS #### [facility] [address] Globulin (S) [Mass/Vol] 4.1 g/dL Normal T he [facility] Comment on above: Performed By: #### S CAN CBC, CMP, MG, PHOS #### [address] Glucose [Mass/Vol] 117 mg/dL High 70-100 [facility] Comment on above: Result Comment: [facility] Glucose Reference Range is dependent on time and content of last meal. Glucose of more than 200 mg/dL in a nonstressed, ambulatory subject supports the diagnosis of Diabetes Mellitus. ADA recommended reference range Performed By: #### S CAN CBC, CMP, MG, PHOS #### [address] Potassium [Moles/Vol] 3.2 mmol/L Low 3.5-5.1 [facility] Comment on above: Performed By: #### S CAN CBC, CMP, MG, PHOS #### [address] Protein [Mass/Vol] 7.0 g/dL Normal 6.4-8.9 [facility] Comment on above: Performed By: #### S CAN CBC, CMP, MG, PHOS #### [place] [address] [place] Sodium [Moles/Vol] 137 mmol/L Normal 136-145 [facility] Comment on above: Performed By: #### S CAN CBC, CMP, MG, PHOS #### [address] Urea nitrogen [Mass/Vol] 14 mg/dL Normal 7-25 [facility] Comment on above: Performed By: #### S CAN CBC, CMP, MG, PHOS #### [facility] [address] Magnesiumon 10-07-2024 Magnesium [Mass/Vol] 1.6 mg/dL Low 1.9-2.7 [facility] Comment on above: Result Comment: PERF ORMED BY: [place] [address] PATHOLOGIST BRAND ENGINEER DEBORAH RAMIREZ M.D. Performed By: #### S CAN CBC, CMP, MG, PHOS #### [address] ECG 12 lead ECGon 10-06-2024 ECG [address] [facility] [place] [address] [place] [address] Electrocardiograph Report Signed Patient: Alessandra Hardy MR#: [id number] : 1960 Acct:[id number] Age/Sex: 64 / F ADM Date: 10/04/24 Loc: Room: [address] [place] [address] Type: ADM IN Attending Dr: Luis Santoro MD Ordering Provider: Luis Santoro MD Date of Service: 10/06/2402/23/1657 ECG/ECG 12 lead ECG: tachycardia Copies to: Test Reason : Blood Pressure : */* mmHG Vent. Rate : 117 BPM Atrial Rate : 117 BPM P-R Int : 146 ms QRS Dur : 86 ms QT Int : 340 ms P-R-T Axes : 41 -23 5 degrees QTcB Int : 474 ms Sinus tachycardia Cannot rule out Anterior infarct (cited on or before 18-May-2024) Abnormal ECG When compared with ECG of 04-Oct-2024 21:40, QRS axis shifted right Criteria for Inferior infarct are no longer present Questionable change in initial forces of Lateral leads Nonspecific T wave abnormality now evident in Inferior leads Nonspecific T wave abnormality, worse in Anterolateral leads Confirmed by Kyra Currie ([id number]) on 10/07/2024 12:55:09 PM Referred By: Electronically Signed By: Kyra Currie Transcribed By: MUS Signed By Kyra Currie MD 10/07/24 1255 Normal [facility] Basic Metabolic Panelon Anion gap [Moles/Vol] 10.1 mmol/L Normal 6.0-15.0 [facility] e [facility] Comment on above: Performed By: #### C BC, BMP ####[place] [id number] [facility] Calcium [Mass/Vol] 8.3 mg/dL Low 8.6-10.3 [facility] Comment on above: Performed By: #### C BC, BMP ####[place] [id number] [facility] Chloride [Moles/Vol] 107 mmol/L Normal 98-107 [facility] Comment on above: Performed By: #### C BC, BMP ####[place] [id number] [facility] CO2 [Moles/Vol] 23.7 mmol/L Normal 21.0-31.0 [facility] Comment on above: Performed By: #### C BC, BMP ####[place] [id number] [facility] Creatinine [Mass/Vol] 0.77 mg/dL Normal 0.60-1.20 [facility] Comment on above: Performed By: #### C BC, BMP ####[address] Creatinine Clr Calc Pharmacy 96.29 Normal [facility] Comment on above: Result Comment: PERF ORMED BY: [facility] [address] [place] [id number] PATHOLOGIST BRAND ENGINEER DEBORAH RAMIREZ M.D. Performed By: #### C LUCRECIA, BMP ####[address] GFR/1.73 sq M.predicted MDRD (S/P/Bld) [Vol rate/Area] mL/min/{1.73_m2} Normal [facility] Comment on above: Performed By: #### C BC, BMP ####[place] [id number] [facility] Glucose [Mass/Vol] 104 mg/dL High 70-100 [facility] Comment on above: Result Comment: [place] Glucose Reference Range is dependent on time and content of last meal. Glucose of more than 200 mg/dL in a nonstressed, ambulatory subject supports the diagnosis of Diabetes Mellitus. ADA recommended reference range Performed By: #### C BC, BMP ####[address] Potassium [Moles/Vol] 3.8 mmol/L Normal 3.5-5.1 [facility] Comment on above: Performed By: #### C BC, BMP ####[address] Sodium [Moles/Vol] 137 mmol/L Normal 136-145 [facility] Comment on above: Performed By: #### C BC, BMP ####[address] Urea nitrogen [Mass/Vol] 12 mg/dL Normal 7-25 [facility] Comment on above: Performed By: #### C BC, BMP ####[address] Complete Blood Count Auto Di ffon 10-05-2024 Basophils (Bld) [#/Vol] 0.0 10*3/uL Normal 0.0-0.2 [facility] Comment on above: Result Comment: PERF ORMED BY: [address] [place] [address] PATHOLOGIST BRAND ENGINEER DEBORAH RAMIREZ M.D. Performed By: #### C BC, BMP ####[address] Basophils/100 WBC (Bld) 0.3 % Normal . [facility] Comment on above: Performed By: #### C BC, BMP ####[address] Eosinophils (Bld) [#/Vol] 0.1 10*3/uL Normal 0.0-0.45 [facility] Comment on above: Performed By: #### C BC, BMP ####[address] Eosinophils/100 WBC (Bld) 0.6 % Normal . [facility] Comment on above: Performed By: #### C BC, BMP ####[place] [id number] [facility] Erythrocyte distribution width (RBC) [Ratio] 13.9 % Normal 11.9-15.3 [facility] Comment on above: Performed By: #### C BC, BMP ####[place] [id number] [facility] Hematocrit (Bld) [Volume fraction] 37.2 % Normal 34.0-46.4 [facility] Comment on above: Performed By: #### C BC, BMP ####[place] [id number] [facility] Hemoglobin (Bld) [Mass/Vol] 12.5 g/dL Normal 11.8-15.4 [facility] Comment on above: Performed By: #### C BC, BMP ####[address] Lymphocytes (Bld) [#/Vol] 1.0 10*3/uL Normal 1.00-4.8 [facility] Comment on above: Performed By: #### C BC, BMP ####[address] Lymphocytes/100 WBC (Bld) 7.7 % Normal . [facility] Comment on above: Performed By: #### C BC, BMP ####[place] [id number] [facility] MCH (RBC) [Entitic mass] 30.2 pg Normal 24.7-34.3 [facility] Comment on above: Performed By: #### C BC, BMP ####[place] [id number] [facility] MCV (RBC) [Entitic vol] 90.0 fL Normal 80-100 T he [facility] Comment on above: Performed By: #### C BC, BMP ####[place] [id number] [facility] Mean Corpuscular HGB Conc 33.5 g/dL Normal 32.0-35.0 [facility] [facility] Comment on above: Performed By: #### C BC, BMP ####[address] [address] [facility] Monocytes (Bld) [#/Vol] 0.6 10*3/uL Normal 0.0-0.8 [facility] Comment on above: Performed By: #### C BC, BMP ####[address] [address] [facility] Monocytes/100 WBC (Bld) 4.7 % Normal . T [facility] Comment on above: Performed By: #### C BC, BMP ####[address] [address] [facility] Neutrophils (Bld) [#/Vol] 10.9 10*3/uL High 1.8-7.7 [facility] Comment on above: Performed By: #### C BC, BMP ####[place] [id number] [facility] Neutrophils/100 WBC (Bld) 86.7 % Normal . [facility] Comment on above: Performed By: #### C LUCRECIA, BMP ####[address] [address] [facility] NRBC% 0.0 /100{WBC} Normal 0-0.5 [facility] Comment on above: Performed By: #### C BC, BMP ####[place] [id number] [facility] Platelet mean volume (Bld) [Entitic vol] 7.4 fL Normal 6.3-10.7 [facility] Comment on above: Performed By: #### C BC, BMP ####[address] [address] [facility] Platelets (Bld) [#/Vol] 253 10*3/uL Normal 150-450 [facility] Comment on above: Performed By: #### C BC, BMP ####[address] [address] [facility] RBC (Bld) [#/Vol] 4.13 10*6/uL Normal 3.60-5.00 [facility] Comment on above: Performed By: #### C BC, BMP ####[place] [id number] WBC (Bld) [#/Vol] 12.5 10*3/uL High 3.8-11.6 [facility] Comment on above: Performed By: #### C BC, BMP ####[place] [id number] Glucose Glucometer (BldC) [M ass/Vol]Ordered By: [place] Gaviria on 10-05-2024 Glucose [Mass/Vol] Capillary blood gluc ose measurement by glucometer (mass/volume) [facility] Comment on above: Random Glucose Refer ence Range is dependent on time and content of last meal. Glucose of more than 200 mg/dL in a nonstressed, ambulatory subject supports the diagnosis of Diabetes Mellitus. Glucose Poct Glucometerson 0 10-05-2024 Glucose [Mass/Vol] 108 mg/dL Normal [facility] Comment on above: Result Comment: [place] om Glucose Reference Range is dependent on time and content of last meal. Glucose of more than 200 mg/dL in a nonstressed, ambulatory subject supports the diagnosis of Diabetes Mellitus. PERFORMED BY: [place] [address] PATHOLOGIST BRAND ENGINEER DEBORAH RAMIREZ M.D. Performed By: #### G LULS ####Point of Care testing, Troponin I High Sensitivityo n 10-05-2024 Troponin I High Sensitivity 8 Normal 0-15 [facility] Comment on above: Result Comment: The Troponin units of report have been changed to meet the Chest Pain Accreditation requirement, element EC5.M1l2. Troponin units are changed from pg/ml to ng/L. Also, the decimal is removed and results are in whole numbers. PERFORMED BY: [place] [address] PATHOLOGIST BRAND ENGINEER DEBORAH RAMIREZ M.D. Performed By: #### H S TROP #### [address] Troponin I.cardiac [Mass/vol ume] in Serum or Plasma by Detection limit <= 0.01 ng/Ordered By: Gely Story on 10-05-2024 Troponin I.cardiac DL <= 0.01 ng/mL [Mass/Vol] Troponin I.cardiac [Mass/volume] in Serum or Plasma by Detection limit <= 0.01 ng/ 0-15 [facility] Comment on above: The Troponin units o f report have been changed to meet the Chest Pain Accreditation requirement, element EC5.M1l2. Troponin units are changed from pg/ml to ng/L. Also, the decimal is removed and results are in whole numbers. Alanine aminotransferase [En zymatic activity/volume] in Serum or PlasmaOrdered By: Emre Mendes on 10-04-2024 ALT [Catalytic activity/Vol] Alanine aminotransferase [Enzymatic activity/volume] in Serum or Plasma 752 [facility] Albumin [Mass/volume] in Ser um or Plasma by Bromocresol green (BCG) dye binding methoOrdered By: Emre Mendes on 10-04-2024 Albumin BCG dye [Mass/Vol] Albumin [Mass/volume] in Serum or Plasma by Bromocresol green (BCG) dye binding metho Low 3.5-5.7 [facility] Alkaline phosphatase [Enzyma tic activity/volume] in Serum or PlasmaOrdered By: Emre Mendes on 10-04-2024 ALP [Catalytic activity/Vol] Alkaline phosphatase [Enzymatic activity/volume] in Serum or Plasma 34-104 [facility] Appearance of UrineOrdered B y: Emre Mendes on 10-04-2024 Appearance (U) Urine appearance Abnormal Clear [facility] Aspartate aminotransferase [ Enzymatic activity/volume] in Serum or PlasmaOrdered By: Emre Mendes on 10-04-2024 AST [Catalytic activity/Vol] Aspartate aminotransferase [Enzymatic activity/volume] in Serum or Plasma 13-39 [facility] Bacteria [Presence] in Urine by AutomatedOrdered By: Emre Mendes on 10-04-2024 Bacteria Auto Ql (U) Bacteria [Presence] in Urine by Automated None Seen [facility] Basic Metabolic Panelon 0 Anion gap [Moles/Vol] 11.2 mmol/L Normal 6.0-15.0 [facility] Comment on above: Performed By: #### H S TROP #### [facility] [address] [place] [address] [place] Calcium [Mass/Vol] 9.4 mg/dL Normal 8.6-10.3 [facility] Comment on above: Performed By: #### H S TROP #### [facility] [address] [place] [address] [place] Chloride [Moles/Vol] 102 mmol/L Normal 98-107 [facility] Comment on above: Performed By: #### H S TROP #### [facility] [address] [place] [address] [place] CO2 [Moles/Vol] 26.7 mmol/L Normal 21.0-31.0 [facility] Comment on above: Performed By: #### H S TROP #### [place] [address] [place] Creatinine [Mass/Vol] 1.03 mg/dL Normal 0.60-1.20 [facility] Comment on above: Performed By: #### H S TROP #### [place] [address] [place] Creatinine Clr Calc Pharmacy 71.42 Normal [facility] Comment on above: Result Comment: PERF ORMED BY: [place] [address] PATHOLOGIST BRAND ENGINEER DEBORAH RAMIREZ M.D. Performed By: #### H S TROP #### [place] [address] [place] GFR/1.73 sq M.predicted MDRD (S/P/Bld) [Vol rate/Area] mL/min/{1.73_m2} Normal [facility] Comment on above: Performed By: #### H S TROP #### [place] [address] [place] Glucose [Mass/Vol] 122 mg/dL High 70-100 [facility] Comment on above: Result Comment: [place] Glucose Reference Range is dependent on time and content of last meal. Glucose of more than 200 mg/dL in a nonstressed, ambulatory subject supports the diagnosis of Diabetes Mellitus. ADA recommended reference range Performed By: #### H S TROP #### [facility] [address] Potassium [Moles/Vol] 3.9 mmol/L Normal 3.5-5.1 [facility] Comment on above: Performed By: #### H S TROP #### [facility] [address] Sodium [Moles/Vol] 136 mmol/L Normal 136-145 [facility] Comment on above: Performed By: #### H S TROP #### [facility] [address] Urea nitrogen [Mass/Vol] 15 mg/dL Normal 7-25 [facility] Comment on above: Performed By: #### H S TROP #### [address] Basophils Auto (Bld) [#/Vol] Ordered By: Emre Mendes on 10-04-2024 Basophils (Bld) [#/Vol] Automated basophil count 0.0-0.2 [facility] Basophils/100 WBC Auto (Bld) Ordered By: Emre Mendes on 10-04-2024 Basophils/100 WBC (Bld) Automated basophil % . [facility] Bilirubin Test strip Ql (U)O rdered By: Emre Mendes on 10-04-2024 Bilirubin Ql (U) Bilirubin.total [Presence] in Urine by Test strip Negative [facility] Bilirubin.direct [Mass/volum e] in Serum or PlasmaOrdered By: Emre Mendes on 10-04-2024 Bilirubin.direct [Mass/Vol] Bilirubin.direct [Mass/volume] in Serum or Plasma 0.03-0.18 [facility] Bilirubin.total [Mass/volume ] in Serum or PlasmaOrdered By: Emre Mendes on 10-04-2024 Bilirubin [Mass/Vol] Bilirubin.total [Mass/volume] in Serum or Plasma 0.3-1.0 [facility] Blood Cultureon 10-04-2024 Bacteria identified Cx Nom (Bld) NO GROWTH 5 DAYS PERFORMED BY: [place] [address] PATHOLOGIST BRAND ENGINEER DEBORAH RAMIREZ M.D. Normal [facility] Comment on above: Performed By: #### S CAN CBC, CMP, MG, PHOS #### [facility] [address] [place] [address] Bacteria identified Cx Nom (Bld) NO GROWTH 5 DAYS PERFORMED BY: [place] [address] PATHOLOGIST BRAND ENGINEER DEBORAH RAMIREZ M.D. Normal [facility] Comment on above: Performed By: #### S CAN CBC, CMP, MG, PHOS #### [address] abdomen pelvis wo conon 0 10-04-2024 CT abdomen pelvis wo con [facility] [place] [address] [place] [address] CT Scan Report Signed Patient: Alessandra Hardy MR#: [id number] : 1960 Acct:[id number] Age/Sex: 64 / F ADM Date: 10/04/24 Loc: ER Room: Type: [facility] ER Attending Dr: Copies to: Emre Mendes DO Ordering Provider: Emre Mendes DO Date of Service: 10/04/24 CT/CT abdomen pelvis wo con: confirm suprapubic cath placement CT ABDOMEN AND PELVIS WITHOUT CONTRAST CLINICAL DATA: Follow-up suprapubic catheter placement. COMPARISON: 05/18/2024 Spiral images were obtained through the abdomen and pelvis without contrast. This CT exam was performed using one or more following dose reduction techniques: Automated exposure control, adjustment of the mA and/or kV according to patient size, or use of iterative reconstruction technique. Limited cuts through the lung bases show elevation of the right hemidiaphragm with adjacent atelectasis and/or scarring. There is also some scarring or atelectasis on the left. Evaluation of the abdominal organs is slightly limited by the absence of contrast. No calcified gallstones are noted. Fatty infiltration of the liver is possible. No intrahepatic masses are seen . The spleen, pancreas and adrenal glands show no acute findings. A small stone is again visualized at the lower pole of the left kidney. No hydronephrosis is seen on that side. There is a 12 mm stone at the right renal pelvis toward the ureteropelvic junction. There is associated moderate hydronephrosis. There is atherosclerotic plaque at the aorta and iliac arteries. Tiny lymph nodes are seen. No ascites is present. There is a small amount of free air below the right hemidiaphragm that may be related to the recent procedure. There is small amount of fluid within the stomach. Small bowel loops are not distended. There is mild stool and some fluid within the colon. There is levoscoliotic curvature and degenerative changes at the spine. Images through the pelvis show nondistended small bowel. The appendix is not definitely seen. There is stool at the distal colon. No diverticular disease is noted. The uterus is slightly retroverted. The urinary bladder is poorly distended. There is a Poole catheter within the bladder. The bladder is not well-distended and the wall appears thickened. There is a suprapubic catheter however it is above and not within the bladder. There is fibrofatty stranding within the subcutaneous fat as well as within the mesentery at the deep pelvis. There is a trace amount of free fluid at posterior cul-de-sac. There is minimal free air within the pelvis. Patient has a right dynamic hip screw. CT/CT abdomen pelvis wo con IMPRESSION: BASILAR PARENCHYMAL CHANGES. BILATERAL NEPHROLITHIASIS, LARGER ON THE RIGHT WITHIN THE RENAL PELVIS WHERE THERE IS ASSOCIATED HYDRONEPHROSIS. SUPRAPUBIC CATHETER, NOT WITHIN THE URINARY BLADDER. SMALL AMOUNT OF FREE AIR WHICH IS LIKELY RELATED TO CATHETER INSERTION. TRACE OF FREE PELVIC FLUID. Impression dictated by: Marisa Álvarez M.D.10/04/2024 7:56 PM Dictation Location: [place] [address] Transcribed By: [facility] 10/04/241955 Dictated By: Marisa Álvarez MD 10/04/241939 Signed By: 10/04/241955 Normal [facility] Calcium [Mass/volume] in Ser um or PlasmaOrdered By: Emre Mendes on 10-04-2024 Calcium [Mass/Vol] Calcium [Mass/volume ] in Serum or Plasma 8.6-10.3 [facility] Carbon dioxide, total [Moles /volume] in Serum or PlasmaOrdered By: Emre Mendes on 10-04-2024 CO2 [Moles/Vol] Carbon dioxide, tota l [Moles/volume] in Serum or Plasma 21.0-31.0 [facility] Chloride [Moles/volume] in S black or PlasmaOrdered By: Emre Mendes on 10-04-2024 Chloride [Moles/Vol] Chloride [Moles/vol ume] in Serum or Plasma 98-107 [facility] Color Auto (U)Ordered By: Robles Mendes on 10-04-2024 Color (U) Color of Urine by Auto Yellow [facility] Blood Count Auto Di ffon 10-04-2024 Basophils (Bld) [#/Vol] 0.1 10*3/uL Normal 0.0-0.2 [facility] Comment on above: Result Comment: PERF ORMED BY: [place] [address] PATHOLOGIST BRAND ENGINEER DEBORAH RAMIREZ M.D. Performed By: #### S CAN CBC, CMP, MG, PHOS #### [address] Basophils/100 WBC (Bld) 0.5 % Normal . [facility] Comment on above: Performed By: #### S CAN CBC, CMP, MG, PHOS #### [address] Eosinophils (Bld) [#/Vol] 0.1 10*3/uL Normal 0.0-0.45 [facility] Comment on above: Performed By: #### S CAN CBC, CMP, MG, PHOS #### [address] Eosinophils/100 WBC (Bld) 0.8 % Normal . [facility] Comment on above: Performed By: #### S CAN CBC, CMP, MG, PHOS #### [address] Erythrocyte distribution width (RBC) [Ratio] 13.9 % Normal 11.9-15.3 [facility] Comment on above: Performed By: #### S CAN CBC, CMP, MG, PHOS #### [address] Hematocrit (Bld) [Volume fraction] 38.5 % Normal 34.0-46.4 [facility] Comment on above: Performed By: #### S CAN CBC, CMP, MG, PHOS #### [address] Hemoglobin (Bld) [Mass/Vol] 12.9 g/dL Normal 11.8-15.4 [facility] Comment on above: Performed By: #### S CAN CBC, CMP, MG, PHOS #### [address] Lymphocytes (Bld) [#/Vol] 1.5 10*3/uL Normal 1.00-4.8 [facility] Comment on above: Performed By: #### S CAN CBC, CMP, MG, PHOS #### [address] Lymphocytes/100 WBC (Bld) 10.4 % Normal . [facility] Comment on above: Performed By: #### S CAN CBC, CMP, MG, PHOS #### [address] MCH (RBC) [Entitic mass] 29.9 pg Normal 24.7-34.3 [facility] Comment on above: Performed By: #### S CAN CBC, CMP, MG, PHOS #### [address] MCV (RBC) [Entitic vol] 89.3 fL Normal 80-100 [facility] Comment on above: Performed By: #### S CAN CBC, CMP, MG, PHOS #### [address] Mean Corpuscular HGB Conc 33.4 g/dL Normal 32.0-35.0 [facility] Comment on above: Performed By: #### S CAN CBC, CMP, MG, PHOS #### [address] Monocytes (Bld) [#/Vol] 0.8 10*3/uL Normal 0.0-0.8 [facility] Comment on above: Performed By: #### S CAN CBC, CMP, MG, PHOS #### [address] Monocytes/100 WBC (Bld) 29.09 % High 0.00-20.00 [facility] Comment on above: Result Comment: For adults in ED, MDW > 20.0 may be associated with a higher risk of sepsis during the first 12 hrs of hospital admission Performed By: #### S CAN CBC, CMP, MG, PHOS #### [address] Monocytes/100 WBC (Bld) 5.5 % Normal . [facility] Comment on above: Performed By: #### S CAN CBC, CMP, MG, PHOS #### [address] Neutrophils (Bld) [#/Vol] 12.0 10*3/uL High 1.8-7.7 [facility] Comment on above: Performed By: #### S CAN CBC, CMP, MG, PHOS #### [place] [address] [place] Neutrophils/100 WBC (Bld) 82.8 % Normal . [facility] Comment on above: Performed By: #### S CAN CBC, CMP, MG, PHOS #### [place] [address] [place] NRBC% 0.1 /100{WBC} Normal 0-0.5 [facility] Comment on above: Performed By: #### S CAN CBC, CMP, MG, PHOS #### [address] Platelet mean volume (Bld) [Entitic vol] 7.4 fL Normal 6.3-10.7 [facility] Comment on above: Performed By: #### S CAN CBC, CMP, MG, PHOS #### [address] Platelets (Bld) [#/Vol] 271 10*3/uL Normal 150-450 [facility] Comment on above: Performed By: #### S CAN CBC, CMP, MG, PHOS #### [address] RBC (Bld) [#/Vol] 4.31 10*6/uL Normal 3.60-5.00 [facility] Comment on above: Performed By: #### S CAN CBC, CMP, MG, PHOS #### [address] WBC (Bld) [#/Vol] 14.5 10*3/uL High 3.8-11.6 [facility] Comment on above: Performed By: #### S CAN CBC, CMP, MG, PHOS #### [address] Creatinine [Mass/volume] in Serum or PlasmaOrdered By: Emre Mendes on 10-04-2024 Creatinine [Mass/Vol] Creatinine [Mass/v olume] in Serum or Plasma 0.60-1.20 [facility] Dipstick and Microscopicon 0 10-04-2024 Appearance (U) Turbid Critically abnormal Clear [facility] Comment on above: Order Comment: Name Collection Type:: Poole Catheter Performed By: #### H S TROP #### [address] Bacteria,Urine None Seen Normal None Seen [facility] Comment on above: Order Comment: Name Collection Type:: Poole Catheter Performed By: #### H S TROP #### [address] Bilirubin,Urine Negative Normal Negative [facility] Comment on above: Order Comment: Name Collection Type:: Poole Catheter Performed By: #### H S TROP #### [address] Color (U) Yellow Normal Yellow [facility] Comment on above: Order Comment: Name Collection Type:: Poole Catheter Performed By: #### H S TROP #### [address] Glucose Ql (U) Normal Normal Normal [facility] Comment on above: Order Comment: Name Collection Type:: Poole Catheter Performed By: #### H S TROP #### [address] Hyaline Casts,Urine None Normal 0-8 [facility] Comment on above: Order Comment: Name Collection Type:: Poole Catheter Result Comment: PERF ORMED BY: [place] [address] PATHOLOGIST BRAND ENGINEER DEBORAH RAMIREZ M.D. Performed By: #### H S TROP #### [address] Ketones Ql (U) Trace High Negative [facility] Comment on above: Order Comment: Name Collection Type:: Poole Catheter Performed By: #### H S TROP #### [address] Leukocyte esterase Test strip Ql (U) 4+ High Negative [facility] Comment on above: Order Comment: Name Collection Type:: Poole Catheter Performed By: #### H S TROP #### [place] [address] [place] Nitrite,Urine Positive High Negative [facility] Comment on above: Order Comment: Name Collection Type:: Poole Catheter Performed By: #### H S TROP #### [place] [address] [place] Occult Blood,Urine 2+ High Negative [facility] Comment on above: Order Comment: Name Collection Type:: Poole Catheter Result Comment: PERF ORMED BY: [place] [address] PATHOLOGIST BRAND ENGINEER DEBORAH RAMIREZ M.D. Performed By: #### H S TROP #### [address] pH (U) 7.0 [pH] Normal 5.0-9.0 [facility] Comment on above: Order Comment: Name Collection Type:: Poole Catheter Performed By: #### H S TROP #### [address] Protein (U) [Mass/Vol] 50 mg/dL High Negative [facility] Comment on above: Order Comment: Name Collection Type:: Poole Catheter Performed By: #### H S TROP #### [address] RBC,Urine Innumerable High 0-4 [facility] Comment on above: Order Comment: Name Collection Type:: Poole Catheter Performed By: #### H S TROP #### [address] Specificy [place],Urine 1.015 Normal 1.00 1-1.03 0 [facility] Comment on above: Order Comment: Name Collection Type:: Poole Catheter Performed By: #### H S TROP #### [place] [address] [place] Squamous Epithelial Cell,Urine 3-4 High 0-2 [facility] Comment on above: Order Comment: Name Collection Type:: Poole Catheter Performed By: #### H S TROP #### [address] Urobilinogen,Urine Normal Normal Normal [facility] Comment on above: Order Comment: Name Collection Type:: Poole Catheter Performed By: #### H S TROP #### [place] [address] [place] WBC CLUMP, Urine Many High None Seen [facility] Comment on above: Order Comment: Name Collection Type:: Poole Catheter Performed By: #### H S TROP #### [address] WBC,Urine Innumerable High 0-4 [facility] Comment on above: Order Comment: Name Collection Type:: Poole Catheter Performed By: #### H S TROP #### [facility] [address] ECG 12 lead ECGon 10-04-2024 [address] [facility] [place] [address] [place] [address] Electrocardiograph Report Signed Patient: Alessandra Hardy MR#: [id number] : 1960 Acct:[id number] Age/Sex: 64 / F ADM Date: 10/04/24 Loc: Room: [address] [place] [address] Type: ADM IN Attending Dr: [place] Gaviria MD Ordering Provider: Gely Story MD Date of Service: 10/04/2412/24/2144 ECG/ECG 12 lead ECG: Urogenital Copies to: Test Reason : Blood Pressure : 161/90 mmHG Vent. Rate : 100 BPM Atrial Rate : 100 BPM P-R Int : 142 ms QRS Dur : 86 ms QT Int : 358 ms P-R-T Axes : 52 -66 112 degrees QTcB Int : 461 ms Normal sinus rhythm Left axis deviation Possible Anterolateral infarct When compared with ECG of 19-May-2024 07:28, Significant changes have occurred Confirmed by Gely Story MD ([id number]) on 10/04/2024 10:21:59 PM Referred By: Electronically Signed By: Gely Story MD Transcribed By: [facility] Signed By Gely Story MD 12/24 Normal [facility] Eosinophils Auto (Bld) [#/Vo l]Ordered By: Emre Mendes on 10-04-2024 Eosinophils (Bld) [#/Vol] Automated eosinophil count 0.0-0.45 [facility] Eosinophils/100 WBC Auto (Bl d)Ordered By: Emre Mendes on 10-04-2024 Eosinophils/100 WBC (Bld) Automated eosinophil % . [facility] Epithelial cells.squamous [# /area] in Urine sediment by Automated countOrdered By: Emre Mendes on 10-04-2024 Epithelial cells.squamous Auto (Urine sed) [#/Area] Epithelial cells.squamous [#/area] in Urine sediment by Automated count High 0-2 [facility] Erythrocyte distribution wid th Auto (RBC) [Ratio]Ordered By: Emre Mendes on 10-04-2024 Erythrocyte distribution width (RBC) [Ratio] Erythrocyte distribution width [Ratio] by Automated count 11.9-15.3 [facility] Erythrocytes [#/area] in Uri ne sediment by Automated countOrdered By: Emre Mendes on 10-04-2024 RBC Auto (Urine sed) [#/Area] Erythrocytes [#/area] in Urine sediment by Automated count High 0-4 [facility] Globulin Calc (S) [Mass/Vol] Ordered By: Emre Mendes on 10-04-2024 Globulin (S) [Mass/Vol] Serum globulin measurement by calculation (mass/volume) [facility] Glucose [Mass/volume] in Ser um or PlasmaOrdered By: Emre Mendes on 10-04-2024 Glucose [Mass/Vol] Glucose [Mass/volume ] in Serum or Plasma High 70-100 [facility] Comment on above: ADA recommended refe rence rangeRandom Glucose Reference Range is dependent on time and content of last meal. Glucose of more than 200 mg/dL in a nonstressed, ambulatory subject supports the diagnosis of Diabetes Mellitus. Glucose [Mass/volume] in Uri ne by Test stripOrdered By: Emre Mendes on 10-04-2024 Glucose Test strip (U) [Mass/Vol] Glucose [Mass/volume] in Urine by Test strip Normal [facility] Hematocrit Auto (Bld) [Volum e fraction]Ordered By: Emre Mendes on 10-04-2024 Hematocrit (Bld) [Volume fraction] Hematocrit [Volume Fraction] of Blood by Automated count 34.0-46.4 [facility] Hemoglobin Test strip Ql (U) Ordered By: Emre Mendes on 10-04-2024 Hemoglobin Ql (U) Hemoglobin [Presence ] in Urine by Test strip High Negative [facility] Hemoglobin [Mass/volume] in BloodOrdered By: Emre Mendes on 10-04-2024 Hemoglobin (Bld) [Mass/Vol] Hemoglobin [Mass/volume] in Blood 11.8-15.4 [facility] Hepatic Panelon 10-04-2024 Albumin [Mass/Vol] 3.0 g/dL Low 3.5-5.7 [facility] Comment on above: Performed By: #### S CAN CBC, CMP, MG, PHOS #### [address] Albumin/Globulin [Mass ratio] 0.8 {ratio} Normal [facility] Comment on above: Performed By: #### S CAN CBC, CMP, MG, PHOS #### [address] ALP [Catalytic activity/Vol] 78 U/L Normal 34-104 [facility] Comment on above: Result Comment: PERF ORMED BY: [place] [address] PATHOLOGIST BRAND ENGINEER DEBORAH RAMIREZ M.D. Performed By: #### S CAN CBC, CMP, MG, PHOS #### [address] ALT [Catalytic activity/Vol] 10 U/L Normal 7-52 [facility] Comment on above: Performed By: #### S CAN CBC, CMP, MG, PHOS #### [address] AST [Catalytic activity/Vol] 17 U/L Normal 13-39 [facility] Comment on above: Performed By: #### S CAN CBC, CMP, MG, PHOS #### [address] Bilirubin [Mass/Vol] 0.6 mg/dL Normal 0.3-1.0 [facility] Comment on above: Performed By: #### S CAN CBC, CMP, MG, PHOS #### [address] Bilirubin,Indirect 0.5 mg/dL Normal [facility] Comment on above: Performed By: #### S CAN CBC, CMP, MG, PHOS #### [address] Bilirubin.indirect [Mass/Vol] 0.10 mg/dL Normal 0.03-0.18 [facility] Comment on above: Performed By: #### S CAN CBC, CMP, MG, PHOS #### [facility] [address] Globulin (S) [Mass/Vol] 3.8 g/dL Normal [facility] Comment on above: Performed By: #### S CAN CBC, CMP, MG, PHOS #### [facility] [address] Protein [Mass/Vol] 6.8 g/dL Normal 6.4-8.9 [facility] Comment on above: Performed By: #### S CAN CBC, CMP, MG, PHOS #### [facility] [address] Hyaline casts [#/area] in Ur ine sediment by Automated countOrdered By: Emre Mendes on 10-04-2024 Hyaline casts Auto (Urine sed) [#/Area] Hyaline casts [#/area] in Urine sediment by Automated count 0-8 [facility] Ketones Test strip Ql (U)Ord ered By: Emre Mendes on 10-04-2024 Ketones Ql (U) Ketones [Presence] i n Urine by Test strip High Negative [facility] Laboratory - Microbiology an d Antimicrobial susceptibilityOrdered By: Emre Mendes on 10-04-2024 Bacteria identified Cx Nom (Bld) NO GROWTH 5 DAYS [facility] Bacteria identified Cx Nom (Bld) NO GROWTH 5 DAYS [facility] Lactate [Moles/volume] in Se rum or PlasmaOrdered By: Emre Mendes on 10-04-2024 Lactate [Moles/Vol] Lactate [Moles/volum e] in Serum or Plasma 0.5-1.9 [facility] Comment on above: Lactic Acid referenc e range has been updated to 0.5 1.9 mmol/L and the critical range of 2.0 or greater. Lactic Acidon 10-04-2024 Lactate [Moles/Vol] 0.9 mmol/L Normal 0.5-1.9 [facility] Comment on above: Result Comment: Lact ic Acid reference range has been updated to 0.5 ? 1.9 mmol/L and the critical range of 2.0 or greater. PERFORMED BY: [facility] [address] [place] [address] PATHOLOGIST BRAND ENGINEER DEBORAH RAMIREZ M.D. Performed By: #### S CAN CBC, CMP, MG, PHOS #### [facility] [address] Leukocyte clumps [Presence] in Urine by AutomatedOrdered By: Emre Mendes on 10-04-2024 Leukocyte clumps Auto Ql (U) Leukocyte clumps [Presence] in Urine by Automated High None Seen [facility] Leukocyte esterase [Presence ] in Urine by Test stripOrdered By: Emre Mendes on 10-04-2024 Leukocyte esterase Test strip Ql (U) Leukocyte esterase [Presence] in Urine by Test strip High Negative [facility] Leukocytes [#/area] in Urine sediment by Automated countOrdered By: Emre Mendes on 10-04-2024 WBC Auto (Urine sed) [#/Area] Leukocytes [#/area] in Urine sediment by Automated count High 0-4 [facility] Leukocytes [#/volume] correc tylor for nucleated erythrocytes in Blood by Automated counOrdered By: Emre Mendes on 10-04-2024 WBC corrected for nucl RBC Auto (Bld) [#/Vol] Leukocytes [#/volume] corrected for nucleated erythrocytes in Blood by Automated coun High 3.8-11.6 [facility] Lymphocytes Auto (Bld) [#/Vo l]Ordered By: Emre Mendes on 10-04-2024 Lymphocytes (Bld) [#/Vol] Lymphocytes [#/volume] in Blood by Automated count 1.00-4.8 [facility] Lymphocytes/100 WBC Auto (Bl d)Ordered By: Emre Mendes on 10-04-2024 Lymphocytes/100 WBC (Bld) Lymphocytes/100 leukocytes in Blood by Automated count . [facility] MCH Auto (RBC) [Entitic mass ]Ordered By: Emre Mendes on 10-04-2024 MCH (RBC) [Entitic mass] MCH [Entitic ma ss] by Automated count 24.7-34.3 [facility] MCHC Auto (RBC) [Mass/Vol]Or dered By: Emre Mendes on 10-04-2024 MCHC (RBC) [Mass/Vol] MCHC [Mass/volume] by Automated count 32.0-35.0 [facility] MCV Auto (RBC) [Entitic vol] Ordered By: Emre Mendes on 10-04-2024 MCV (RBC) [Entitic vol] MCV [Entitic vol ume] by Automated count 80-100 [facility] Monocyte distribution width [Entitic volume] in Blood by AutomatedOrdered By: Emre Mendes on 10-04-2024 Monocyte distribution width Auto (Bld) [Entitic vol] Monocyte distribution width [Entitic volume] in Blood by Automated High 0.00-20.00 [facility] Comment on above: For adults in ED, MD W > 20.0 may be associated with a higher risk of sepsis during the first 12 hrs of hospital admission Monocytes Auto (Bld) [#/Vol] Ordered By: Emre Mendes on 10-04-2024 Monocytes (Bld) [#/Vol] Automated blood monocyte count 0.0-0.8 [facility] Monocytes/100 WBC Auto (Bld) Ordered By: Emre Meneds on 10-04-2024 Monocytes/100 WBC (Bld) Automated monocyte % . [facility] Neutrophils Auto (Bld) [#/Vo l]Ordered By: Emre Mendes on 10-04-2024 Neutrophils (Bld) [#/Vol] Neutrophils [#/volume] in Blood by Automated count High 1.8-7.7 [facility] Neutrophils/100 WBC Auto (Bl d)Ordered By: Emre Mendes on 10-04-2024 Neutrophils/100 WBC (Bld) Automated neutrophil % . [facility] Nitrite Test strip Ql (U)Ord ered By: Emre Mendes on 10-04-2024 Nitrite Ql (U) Nitrite [Presence] i n Urine by Test strip High Negative [facility] No Panel InformationOrdered By: Emre Mendes on 10-04-2024 Estimated GFR (CKD-EPI) > 60.0 mL/Min [facility] Creatinine Clearance (Chem 71.42 [facility] Nucleated erythrocytes [Pres ence] in Blood by Automated countOrdered By: Emre Mendes on 10-04-2024 Nucleated RBC Auto Ql (Bld) Nucleated erythrocytes [Presence] in Blood by Automated count 0-0.5 [facility] Platelet mean volume Auto (B ld) [Entitic vol]Ordered By: Emre Mendes on 10-04-2024 Platelet mean volume (Bld) [Entitic vol] Platelet mean volume [Entitic volume] in Blood by Automated count 6.3-10.7 [facility] Platelets Auto (Bld) [#/Vol] Ordered By: Emre Mendes on 10-04-2024 Platelets (Bld) [#/Vol] Platelets [#/vol ume] in Blood by Automated count 150-450 [facility] Potassium [Moles/volume] in Serum or PlasmaOrdered By: Emre Mendes on 10-04-2024 Potassium [Moles/Vol] Potassium [Moles/v olume] in Serum or Plasma 3.5-5.1 [facility] Protein Test strip (U) [Mass /Vol]Ordered By: Emre Mendes on 10-04-2024 Protein (U) [Mass/Vol] Protein [Mass/vol ume] in Urine by Test strip High Negative [facility] Protein [Mass/volume] in Ser um or PlasmaOrdered By: Emre Mendes on 10-04-2024 Protein [Mass/Vol] Protein [Mass/volume ] in Serum or Plasma 6.4-8.9 [facility] RBC Auto (Bld) [#/Vol]Ordere d By: Emre Mendes on 10-04-2024 RBC (Bld) [#/Vol] Erythrocytes [#/volu me] in Blood by Automated count 3.60-5.00 [facility] Serum or plasma albumin/glob ulin mass ratioOrdered By: Emre Mendes on 10-04-2024 Albumin/Globulin [Mass ratio] Serum or plasma albumin/globulin mass ratio [facility] Serum or plasma anion gap de terminationOrdered By: Emre Mendes on 10-04-2024 Anion gap [Moles/Vol] Serum or plasma an ion gap determination 6.0-15.0 [facility] Serum or plasma non-glucuron idated bilirubin measurement (mass/volume)Ordered By: Emre Mendes on 10-04-2024 Bilirubin.indirect [Mass/Vol] Serum or plasma non-glucuronidated bilirubin measurement (mass/volume) [facility] Sodium [Moles/volume] in Ser um or PlasmaOrdered By: Emre Mendes on 10-04-2024 Sodium [Moles/Vol] Sodium [Moles/volume ] in Serum or Plasma 136-145 [facility] Specific gravity Test strip (U) [Rel density]Ordered By: Emre Mendes on 10-04-2024 Specific gravity (U) [Rel density] Specific gravity of Urine by Test strip 1.001-1.03 0 [facility] Troponin I High Sensitivityo n 10-04-2024 Troponin I High Sensitivity 8 Normal 0-15 [facility] Comment on above: Result Comment: The Troponin units of report have been changed to meet the Chest Pain Accreditation requirement, element EC5.M1l2. Troponin units are changed from pg/ml to ng/L. Also, the decimal is removed and results are in whole numbers. PERFORMED BY: [place] [address] PATHOLOGIST BRAND ENGINEER DEBORAH RAMIREZ M.D. Performed By: #### S CAN CBC, CMP, MG, PHOS #### [address] Troponin I.cardiac [Mass/vol ume] in Serum or Plasma by Detection limit <= 0.01 ng/Ordered By: Gely Story on 10-04-2024 Troponin I.cardiac DL <= 0.01 ng/mL [Mass/Vol] Troponin I.cardiac [Mass/volume] in Serum or Plasma by Detection limit <= 0.01 ng/ 0-15 [facility] Comment on above: The Troponin units o f report have been changed to meet the Chest Pain Accreditation requirement, element EC5.M1l2. Troponin units are changed from pg/ml to ng/L. Also, the decimal is removed and results are in whole numbers. Urea nitrogen [Mass/volume] in Serum or PlasmaOrdered By: Emre Mendes on 10-04-2024 Urea nitrogen [Mass/Vol] Urea nitrogen [Mass/volume] in Serum or Plasma 7 [facility] Urine Cultureon 10-04-2024 Bacteria identified Cx Nom (U) ORGANISM: Escherichia coli (ESBL) (O:ESCCOLESBL) [place] Count >100,000 Aerobic DESMOND Charge ([id number]) SUSCEPTIBILITY ORGANISM: O:ESCCOLESBL ANTIBIOTIC INTERPRETATION DESMOND Amikacin S <16 Amoxacillin/K Clavulanate S <8 Ampicillin R* >16 Ampicillin/Sulbactam S 88/4 Aztreonam ESBL >16 Cefazolin R* >16 Cefepime R* >16 Ceftazidime ESBL >16 Ceftazidime/Avibactam S <4 Ceftolozane/Tazobactam S <2 Ceftriaxone ESBL >32 Cefuroxime R* >16 Ciprofloxacin R >2 Ertapenem S <0.5 Gentamicin S <2 Levofloxacin R >4 Meropenem S <1 Meropenem/Vaborbactam S <2 Nitrofurantoin S <32 Piperacillin/Tazobactam S <8 Tetracycline S <4 Tigecycline S <2 Tobramycin S <2 Trimethoprim/Sulfamethoxa zole S <0.5 S = SUSCEPTIBLE I = INTERMEDIATE R = RESISTANT BLANK = DATA NOT AVAILABLE, OR DRUG NOT ADVISABLE OR TESTED R* = RESISTANCE DUE TO EXTENDED SPECTRUM BETA-LACTAMASES ESBL = EXTENDED SPECTRUM BETA-LACTAMASE TFG = THYMIDINE-DEPENDENT STRAIN YO = BETA-LACTAMASE POSITIVE IB = INDUCIBLE BETA-LACTAMASE. APPEARS IN PLACE OF 'S' WITH SPECIES KNOWN TO POSSESS INDUCIBLE BETA-LACTAMASES. POTENTIALLY THEY MAY BECOME RESISTANT TO ALL B-LACTAM DRUGS. PERFORMED BY: [facility] [address] [place] [address] PATHOLOGIST BRAND ENGINEER DEBORAH RAMIREZ M.D. Normal [facility] Comment on above: Performed By: #### H S TROP #### [facility] [address] Urine cultureOrdered By: Yuri Mendes on 10-04-2024 Bacteria identified Cx Nom (U) Abnormal [facility] Urobilinogen Test strip (U) [Mass/Vol]Ordered By: Emre Mendes on 10-04-2024 Urobilinogen (U) [Mass/Vol] Urobilinogen [Mass/volume] in Urine by Test strip Normal [facility] WBC Auto (Bld) [#/Vol]Ordere d By: Emre Mendes on 10-04-2024 WBC (Bld) [#/Vol] Leukocytes [#/volume ] in Blood by Automated count High 3.8-11.6 [facility] pH Test strip (U)Ordered By: Emre Mendes on 10-04-2024 pH (U) pH of Urine by Test strip 5.0-9.0 [facility] Ambulatory Visit Summaryon 0 10-03-2024 Ambulatory Visit Summary Ambulatory Visi t Summary ALESSANDRA HARDY :1960 Visit Date:10/03/2024 Ambulatory Visit Instructions Your Diagnosis Neurogenic bladder Your Care Team Attending Physician - KANE Grier APRN, Mayra Childress Primary Care Physician - NEVA MILLER DO This Is Your Medications List acetaminophen (acetaminophen 500 mg Tab) cholecalciferol (Vitamin D 1000 intl units (25 mcg) Tab) fludrocortisone (fludrocortisone 0.1 mg Tab) fluoxetine (Prozac 10 mg Cap) lamotrigine (Lamictal 100 mg Tab) magnesium hydroxide (Milk of Magnesia) miconazole nortriptyline (nortriptyline 25 mg Cap) ocular lubricant (Artificial Tears) omeprazole (omeprazole 20 mg Cap-DR) oseltamivir (oseltamivir 75 mg Cap) pantoprazole (Protonix 20 mg Tab-DR) petrolatum topical (Vicks BabyRub topical ointment) sodium chloride (Sodium Chloride) Procedures Performed Suprapubic catheter procedure (08/08/2024), Stent removal (09/15/2022), Cystoscopic insertion of ureteric stent (05/26/2022), Cystoscopy (12/02/2021). What to do next Scheduled Follow-Up Appointments 2024 9:20 AM EDT With: KANE Grier APRN, Mayra Childress Where: [facility] [address] [place] [address]- Medications What How Much When Instructions Unchanged acetaminophen (acetaminophen 500 mg Tab) By Mouth Every 6 hours Unchanged cholecalciferol (Vitamin D 1000 intl units (25 mcg) Tab) By Mouth Every day Unchanged fludrocortisone (fludrocortisone 0.1 mg Tab) By Mouth Every day Unchanged fluoxetine (Prozac 10 mg Cap) By Mouth Every day Unchanged lamotrigine (Lamictal 100 mg Tab) By Mouth 2 times a day Unchanged magnesium hydroxide (Milk of Magnesia) By Mouth Unchanged miconazole Buccal Every day Unchanged nortriptyline (nortriptyline 25 mg Cap) By Mouth 3 times a day Unchanged ocular lubricant (Artificial Tears) Both eyes Unchanged omeprazole (omeprazole 20 mg Cap-DR) 1 Capsules By Mouth Every day Unchanged oseltamivir (oseltamivir 75 mg Cap) 1 Capsules By Mouth 2 times a day Unchanged pantoprazole (Protonix 20 mg Tab-DR) By Mouth Every day Unchanged petrolatum topical (Vicks BabyRub topical ointment) Unchanged sodium chloride (Sodium Chloride) Allergies aspirin (Unknown, Unknown Reaction) Problems Ongoing - Any problem that you are currently receiving treatment for. Constipation Depression Mixed incontinence MS (multiple sclerosis) Neurogenic bladder Osteoporosis Seizures TIA (transient ischemic attack) Patient Survey You may receive a survey via text or e-mail asking about your office visit. Please share your experience with us by completing your survey. We appreciate your feedback and thank you for choosing us for your care. Normal [facility] Ambulatory Visit Summaryon 0 09-06-2024 Ambulatory Visit Summary Ambulatory Visi t Summary ALESSANDRA HARDY :1960 Visit Date:09/06/2024 Ambulatory Visit Instructions Your Diagnosis Neurogenic bladder Your Care Team Attending Physician - JERRELL EVANS, Tammy Burk Primary Care Physician - NEVA MILLER DO This Is Your Medications List Contact prescribing physician if questions or concerns acetaminophen (acetaminophen 500 mg Tab) cholecalciferol (Vitamin D 1000 intl units (25 mcg) Tab) fludrocortisone (fludrocortisone 0.1 mg Tab) fluoxetine (Prozac 10 mg Cap) lamotrigine (Lamictal 100 mg Tab) magnesium hydroxide (Milk of Magnesia) miconazole nortriptyline (nortriptyline 25 mg Cap) ocular lubricant (Artificial Tears) omeprazole (omeprazole 20 mg Cap-DR) oseltamivir (oseltamivir 75 mg Cap) pantoprazole (Protonix 20 mg Tab-DR) petrolatum topical (Vicks BabyRub topical ointment) sodium chloride (Sodium Chloride) Procedures Performed Suprapubic catheter procedure (08/08/2024), Stent removal (09/15/2022), Cystoscopic insertion of ureteric stent (05/26/2022), Cystoscopy (12/02/2021). Discharge Vitals Heart Rate (Peripheral) 90 Respiratory Rate 16 Blood Pressure 119/77 Height 174 cm Height 69 in Weight 100 kg Weight 220.462 lb BMI 33.03 What to do next Scheduled Follow-Up Appointments Wednesday 8:00 AM EST With: KANE Grier APRN, Mayra Childress Where: [facility] [address] [place] [address]- You Need to Schedule the Following Appointments Follow Up with JERRELL EVANS, MADISON Hannah When: Where: [facility] [address], [place] [address]- Medications What How Much When Instructions Unchanged acetaminophen (acetaminophen 500 mg Tab) By Mouth Every 6 hours Contact prescribing physician if questions or concerns Unchanged cholecalciferol (Vitamin D 1000 intl units (25 mcg) Tab) By Mouth Every day Contact prescribing physician if questions or concerns Unchanged fludrocortisone (fludrocortisone 0.1 mg Tab) By Mouth Every day Contact prescribing physician if questions or concerns Unchanged fluoxetine (Prozac 10 mg Cap) By Mouth Every day Contact prescribing physician if questions or concerns Unchanged lamotrigine (Lamictal 100 mg Tab) By Mouth 2 times a day Contact prescribing physician if questions or concerns Unchanged magnesium hydroxide (Milk of Magnesia) By Mouth Contact prescribing physician if questions or concerns Unchanged miconazole Buccal Every day Contact prescribing physician if questions or concerns Unchanged nortriptyline (nortriptyline 25 mg Cap) By Mouth 3 times a day Contact prescribing physician if questions or concerns Unchanged ocular lubricant (Artificial Tears) Both eyes Contact prescribing physician if questions or concerns Unchanged omeprazole (omeprazole 20 mg Cap-DR) 1 Capsules By Mouth Every day Contact prescribing physician if questions or concerns Unchanged oseltamivir (oseltamivir 75 mg Cap) 1 Capsules By Mouth 2 times a day Contact prescribing physician if questions or concerns Unchanged pantoprazole (Protonix 20 mg Tab-DR) By Mouth Every day Contact prescribing physician if questions or concerns Unchanged petrolatum topical (Vicks BabyRub topical ointment) Contact prescribing physician if questions or concerns Unchanged sodium chloride (Sodium Chloride) Contact prescribing physician if questions or concerns Allergies aspirin (Unknown, Unknown Reaction) Problems Ongoing - Any problem that you are currently receiving treatment for. Constipation Depression Mixed incontinence MS (multiple sclerosis) Neurogenic bladder Osteoporosis Seizures TIA (transient ischemic attack) Patient Survey You may receive a survey via text or e-mail asking about your office visit. Please share your experience with us by completing your survey. We appreciate your feedback and thank you for choosing us for your care. [employer] Neurogenic Bladder Neurogenic bladder is a bladder control disorder. It is usually caused by problems with the nerves that control the bladder. The brain sends signals through the spinal cord to the muscles in the bladder that start and stop urine flow. With neurogenic bladder, the nerves and muscles do not work together the way they should. This condition may make the bladder overactive, meaning you have trouble holding urine. In other cases, it may make the bladder underactive. This means that you have trouble passing urine. What are the causes? This condition may be caused by nerve damage or a condition that disrupts the signals from your brain to your bladder. Many things can cause these nerve problems, including: ??? A disease that affects the nervous system, such as: ? Alzheimer's disease. ? Cerebral palsy. ? Multiple sclerosis. ? Diabetes. ? Parkinson's disease. ??? Damage to your brain (more content not included)... Normal [facility] Urology Office/Clinic Noteon 09-06-2024 Urology Office/Clinic Note Urology Office/Clinic Note Chief Complaint 1st SP change HPI Staff 1st SP cath change, placed 08/08/24 Previous DX: hydroureter on Lt. and neogenic bladder. S/p Cysto/left RG/ureter/bladder bx/left stent placement done 05/26/22 Denies hematuria, has been leaking in the urethra, nothing will be in the bag for the last couple days. Mild lower abdominal pain off and on. History of Present Illness Tests reviewed: op note I have reviewed the previous health record information and history for this patient from Dr. Allan. I have reviewed and verified the staff HPI to be accurate for this encounter. Review of Systems PHQ Score Initial Depression Screen Score: 0 SCORE ROS - Provider Constitutional: denies weight loss, denies hot flashes. Eyes: denies eye problems. Gastrointestinal: denies nausea, denies vomiting. Cardiovascular: denies chest pain or angina. Integumentary: no dryness Musculoskeletal: denies musculoskeletal symptoms. ENMT: denies otolaryngeal symptoms. Respiratory: no shortness of breath. Heme/Lymph: denies easy bleeding tendency, denies easy bruising tendency. Psychiatric: no confusion, no anxiety. Genitourinary: See HPI. Physical Exam Vitals & Measurements HR: 90(Peripheral) RR: 16 BP: 119/77 HT: 69 in HT: 174 cm WT: 100 kg WT: 220.462 lb BMI: 33.03 General Appearance: alert, no distress, well nourished, well developed female. Assessment/Plan Pt resides at [facility]. Pt accompanied by an adult female today. 1. Neurogenic bladder (N31.9: Neuromuscular dysfunction of bladder, unspecified) S/p cysto, PC SP tube placement 08/08/24. No sample provided for UA today, pt has SP tube. Leaked from urethra overnight which suggests obstruction. Only collected 200 cc in bag one day. Hasn't been flushed. Denies debris in bag. Tubing was kinked, likely what caused leakage. Counseled pt on proper tubing/bag/cath placement. Typically drains herself. 22 Fr poole was changed in the office today with no difficulties and flushed appropriately to ensure proper placement. Follow up 1 month SP tube change (will increase to 24 Fr) or sooner if needed. Pt understands and agrees with plan. Follow-up With When Contact Information JERRELL EVANS, Tammy Burk, URL [facility] [address], [place] [address]- Additional Instructions: 1 month SP tube change (will increase to 24 Fr) Patient Education Neurogenic Bladder I, Amarilis Adkins, personally scribed for Dr. Allan on 09/06/2024 10:04:06. . Documentation recorded by the scribe, Amarilis Adkins, accurately reflects the services(s) I performed and decisions made by me. Authenticated by Dr. Allan on 09/06/2024 10:08:21. Problem List/Past Medical History Ongoing Constipation Depression Mixed incontinence MS (multiple sclerosis) Neurogenic bladder Osteoporosis Seizures TIA (transient ischemic attack) Historical No qualifying data Procedure/Surgical History Suprapubic catheter procedure (08/08/2024), Stent removal (09/15/2022), Cystoscopic insertion of ureteric stent (05/26/2022), Cystoscopy (12/02/2021). Medications acetaminophen 500 mg Tab, Oral, q6hr Artificial Tears, Eye-Both fludrocortisone 0.1 mg Tab, Oral, Daily Lamictal 100 mg Tab, Oral, BID miconazole, Buccal, Daily Milk of Magnesia, Oral nortriptyline 25 mg Cap, Oral, TID omeprazole 20 mg Cap-DR, 20 mg= 1 cap(s), Oral, Daily oseltamivir 75 mg Cap, 75 mg= 1 cap(s), Oral, BID Protonix 20 mg Tab-DR, Oral, Daily Prozac 10 mg Cap, Oral, Daily Sodium Chloride Vicks BabyRub topical ointment Vitamin D 1000 intl units (25 mcg) Tab, Oral, Daily Allergies aspirin (Unknown, Unknown Reaction) Social History Tobacco Former smoker, quit more than 30 days ago Tobacco Use:. Never Smokeless Tobacco Use:. Cigarettes, 09/06/2024 Family History Family history is unknown Immunizations Vaccine Date Status SARS-CoV-2 (COVID-19) mRNAMUL.ORD![id number] 04/29/2022 Recorded SARS-CoV-2 (COVID-19) mRNA-1273 vaccine 01/06/2022 Recorded SARS-CoV-2 (COVID-19) mRNA-1273 vaccine 06/11/2021 Recorded SARS-CoV-2 (COVID-19) mRNA-1273 vaccine 11/26/2020 Recorded SARS-CoV-2 (COVID-19) mRNA-1273 vaccine 10/29/2020 Recorded influenza virus vaccine, inactivated 04/30/2020 Recorded influenza virus vaccine, inactivated 03/30/2019 Recorded influenza, unspecified formulation 03/22/2019 Recorded zoster vaccine, inactivated 07/08/2018 Recorded influenza virus vaccine, inactivated 05/09/2018 Recorded zoster vaccine, inactivated 11/29/2017 Recorded influenza virus vaccine, inactivated 03/08/2017 Recorded influenza, unspecified formulation 05/11/2016 Recorded influenza virus vaccine, inactivated 04/13/2016 Recorded influenza virus vaccine, inactivated 04/18/2015 Recorded pneumococcal 23-valent vaccine 04/04/2014 Recorded pneumococcal 23-valent vaccine 08/02/2013 Recorded pneumococcal 23-valent vaccin (more content not included)... Normal [facility] Comment on above: Result Comment: Elec tronically Signed By: Tammy ALLAN MD\.br\Date and Time Signed: 09/06/24 10:08 EST\.br\Electronically Co-Signed By: Amarilis Adkins\.br\Date and Time Co-Signed: 09/06/24 10:04 EST Urology Office/Clinic Noteon 08-16-2024 Urology Office/Clinic Note Urology Office/Clinic Note Chief Complaint Suture removal HPI Staff Pt here for suture removal after SP tube placement 08/08/24 Previous DX: hydroureter on Lt. and neogenic bladder. S/p Cysto/left RG/ureter/bladder bx/left stent placement done 05/26/22. Pt states that she has some irritation around the incision History of Present Illness Tests reviewed: op note I have reviewed the previous health record information and history for this patient from Dr. Allan. I have reviewed and verified the staff HPI to be accurate for this encounter. Review of Systems PHQ Score Initial Depression Screen Score: 0 SCORE ROS - Provider Constitutional: denies weight loss, denies hot flashes. Eyes: denies eye problems. Gastrointestinal: denies nausea, denies vomiting. Cardiovascular: denies chest pain or angina. Integumentary: no dryness Musculoskeletal: denies musculoskeletal symptoms. ENMT: denies otolaryngeal symptoms. Respiratory: no shortness of breath. Heme/Lymph: denies easy bleeding tendency, denies easy bruising tendency. Psychiatric: no confusion, no anxiety. Genitourinary: See HPI. Physical Exam Vitals & Measurements HR: 86(Peripheral) RR: 16 BP: 124/84 HT: 69 in HT: 174 cm WT: 100 kg WT: 220.462 lb BMI: 33.03 General Appearance: alert, no distress, well nourished, well developed female. PE: insertion site red and irritated. Assessment/Plan Pt resides at [facility]. Pt accompanied by an adult female today. 1. Neurogenic bladder (N31.9: Neuromuscular dysfunction of bladder, unspecified) S/p cysto, PC SP tube placement 08/08/24. No sample provided for UA today, pt has SP tube. The wound care nurse (Kristine) at [facility] has been taking care of her. Only comes in 1-2x/wk. she is having pain at insertion site. Shares she developed a blister from the tape so the tape was removed and extension tubing was added causing tension on insertion site. Counseled pt on proper poole tubing and bag placement to avoid tension. Educated on risks of tension including pain, erosion. PE: insertion site red, indurated and irritated. Sutures removed IO today wo complications. Tubing readjusted to allow for slack. Follow up 09/06/24 for first SP tube change or sooner if needed. Pt understands and agrees with plan. Follow-up With When Contact Information JERRELL EVANS, Tammy Burk, URL [facility] [address] [place] [address]- Additional Instructions: 09/06/24 for first SP tube change Patient Education Suture Removal, Care After Suprapubic Catheter Home Guide Amarilis Roy, personally scribed for Dr. Allan on 08/16/2024 13:26:29. . Documentation recorded by the scribe, Amarilis Adkins, accurately reflects the services(s) I performed and decisions made by me. Authenticated by Dr. Allan on 08/16/2024 13:37:16. Problem List/Past Medical History Ongoing Constipation Foreign body in bladder Hydroureter on left Mixed incontinence MS (multiple sclerosis) Neurogenic bladder Urinary retention Historical No qualifying data Procedure/Surgical History Stent removal (09/15/2022), Cystoscopic insertion of ureteric stent (05/26/2022), Cystoscopy (12/02/2021). Medications acetaminophen 500 mg Tab, Oral, q6hr Artificial Tears, Eye-Both fludrocortisone 0.1 mg Tab, Oral, Daily Lamictal 100 mg Tab, Oral, BID miconazole, Buccal, Daily Milk of Magnesia, Oral Myrbetriq 50 mg oral tablet, extended release, 50 mg= 1 tab(s), Oral, Daily, 3 refills nortriptyline 25 mg Cap, Oral, TID omeprazole 20 mg Cap-DR, 20 mg= 1 cap(s), Oral, Daily oseltamivir 75 mg Cap, 75 mg= 1 cap(s), Oral, BID Protonix 20 mg Tab-DR, Oral, Daily Prozac 10 mg Cap, Oral, Daily Sodium Chloride Vicks BabyRub topical ointment Vitamin D 1000 intl units (25 mcg) Tab, Oral, Daily Allergies aspirin (Unknown, Unknown Reaction) Social History Tobacco Former smoker, quit more than 30 days ago Tobacco Use:. Never Smokeless Tobacco Use:. Cigarettes, 08/16/2024 Family History Family history is unknown Immunizations Vaccine Date Status SARS-CoV-2 (COVID-19) mRNAMUL.ORD![id number] 04/29/2022 Recorded SARS-CoV-2 (COVID-19) mRNA-1273 vaccine 01/06/2022 Recorded SARS-CoV-2 (COVID-19) mRNA-1273 vaccine 06/11/2021 Recorded SARS-CoV-2 (COVID-19) mRNA-1273 vaccine 11/26/2020 Recorded SARS-CoV-2 (COVID-19) mRNA-1273 vaccine 10/29/2020 Recorded influenza virus vaccine, inactivated 04/30/2020 Recorded influenza virus vaccine, inactivated 03/30/2019 Recorded influenza, unspecified formulation 03/22/2019 Recorded zoster vaccine, inactivated 07/08/2018 Recorded influenza virus vaccine, inactivated 05/09/2018 Recorded zoster vaccine, inactivated 11/29/2017 Recorded influenza virus vaccine, inactivated 03/08/2017 Recorded influenza, unspecified formulation 05/11/2016 Recorded influenza virus vaccine, inactivated 04/13/2016 Recorded influenza vir (more content not included)... [facility] Comment on above: Result Comment: Elec tronically Signed By: JERRELL EVANS, Tammy R\.br\Date and Time Signed: 08/16/24 13:37 EST\.br\Electronically Co-Signed By: Amarilis Adkins\.br\Date and Time Co-Signed: 08/16/24 13:27 EST Basic Metabolic Panelon 12-2 Anion gap [Moles/Vol] 11.1 mmol/L Normal 6.0-15.0 [facility] Comment on above: Performed By: #### H S TROP #### [address] Calcium [Mass/Vol] 9.4 mg/dL Normal 8.6-10.3 [facility] Comment on above: Result Comment: PERF ORMED BY: [place] [address] PATHOLOGIST BRAND ENGINEER DEBORAH RAMIREZ M.D. Performed By: #### H S TROP #### [address] Chloride [Moles/Vol] 101 mmol/L Normal 98-107 [facility] Comment on above: Performed By: #### H S TROP #### [place] [address] [place] CO2 [Moles/Vol] 29.9 mmol/L Normal 21.0-31.0 [facility] Comment on above: Performed By: #### H S TROP #### [address] Creatinine [Mass/Vol] 0.94 mg/dL Normal 0.60-1.20 [facility] Comment on above: Performed By: #### H S TROP #### [place] [address] [place] GFR/1.73 sq M.predicted MDRD (S/P/Bld) [Vol rate/Area] mL/min/{1.73_m2} Normal [facility] Comment on above: Performed By: #### H S TROP #### [place] [address] [place] Glucose [Mass/Vol] 102 mg/dL High 70-100 [facility] Comment on above: Result Comment: [place] Glucose Reference Range is dependent on time and content of last meal. Glucose of more than 200 mg/dL in a nonstressed, ambulatory subject supports the diagnosis of Diabetes Mellitus. ADA recommended reference range Performed By: #### H S TROP #### [facility] [address] [place] [address] Potassium [Moles/Vol] 4.0 mmol/L Normal 3.5-5.1 [facility] Comment on above: Performed By: #### H S TROP #### [facility] [address] [place] [address] Sodium [Moles/Vol] 138 mmol/L Normal 136-145 [facility] Comment on above: Performed By: #### H S TROP #### [facility] [address] [place] [address] Urea nitrogen [Mass/Vol] 9 mg/dL Normal 7-25 [facility] Comment on above: Performed By: #### H S TROP #### [facility] [address] [place] [address] [place] Basophils Auto (Bld) [#/Vol] Ordered By: Tammy Allan on 07-24-2024 Basophils (Bld) [#/Vol] Automated basophil count 0.0-0.2 [facility] Basophils/100 WBC Auto (Bld) Ordered By: Tammy Allan on 07-24-2024 Basophils/100 WBC (Bld) Automated basophil % . [facility] Calcium [Mass/volume] in Ser um or PlasmaOrdered By: Tammy Allan on 07-24-2024 Calcium [Mass/Vol] Calcium [Mass/volume ] in Serum or Plasma 8.6-10.3 [facility] Carbon dioxide, total [Moles /volume] in Serum or PlasmaOrdered By: Tammy Allan on 07-24-2024 CO2 [Moles/Vol] Carbon dioxide, tota l [Moles/volume] in Serum or Plasma 21.0-31.0 [facility] Chloride [Moles/volume] in S black or PlasmaOrdered By: Tammy Allan on 07-24-2024 Chloride [Moles/Vol] Chloride [Moles/vol ume] in Serum or Plasma 98-107 [facility] Complete Blood Count Auto Di ffon 07-24-2024 Basophils (Bld) [#/Vol] 0.0 10*3/uL Normal 0.0-0.2 [facility] Comment on above: Result Comment: PERF ORMED BY: [place] [address] PATHOLOGIST BRAND ENGINEER DEBORAH RAMIREZ M.D. Performed By: #### H S TROP #### [address] Basophils/100 WBC (Bld) 1.0 % Normal . [facility] Comment on above: Performed By: #### H S TROP #### [address] Eosinophils (Bld) [#/Vol] 0.2 10*3/uL Normal 0.0-0.45 [facility] Comment on above: Performed By: #### H S TROP #### [address] Eosinophils/100 WBC (Bld) 6.1 % Normal . [facility] Comment on above: Performed By: #### H S TROP #### [address] Erythrocyte distribution width (RBC) [Ratio] 14.2 % Normal 11.9-15.3 [facility] Comment on above: Performed By: #### H S TROP #### [address] Hematocrit (Bld) [Volume fraction] 37.7 % Normal 34.0-46.4 [facility] Comment on above: Performed By: #### H S TROP #### [address] Hemoglobin (Bld) [Mass/Vol] 12.6 g/dL Normal 11.8-15.4 [facility] Comment on above: Performed By: #### H S TROP #### [place] [address] [place] Lymphocytes (Bld) [#/Vol] 1.2 10*3/uL Normal 1.00-4.8 [facility] Comment on above: Performed By: #### H S TROP #### [address] Lymphocytes/100 WBC (Bld) 32.2 % Normal . [facility] Comment on above: Performed By: #### H S TROP #### [address] MCH (RBC) [Entitic mass] 30.9 pg Normal 24.7-34.3 [facility] Comment on above: Performed By: #### H S TROP #### [address] MCV (RBC) [Entitic vol] 92.6 fL Normal 80-100 [facility] Comment on above: Performed By: #### H S TROP #### [address] Mean Corpuscular HGB Conc 33.4 g/dL Normal 32.0-35.0 [facility] Comment on above: Performed By: #### H S TROP #### [address] Monocytes (Bld) [#/Vol] 0.6 10*3/uL Normal 0.0-0.8 [facility] Comment on above: Performed By: #### H S TROP #### [address] Monocytes/100 WBC (Bld) 15.2 % Normal . [facility] Comment on above: Performed By: #### H S TROP #### [address] Neutrophils (Bld) [#/Vol] 1.7 10*3/uL Low 1.8-7.7 [facility] Comment on above: Performed By: #### H S TROP #### [address] Neutrophils/100 WBC (Bld) 45.5 % Normal . [facility] Comment on above: Performed By: #### H S TROP #### [facility] [address] NRBC% 0.2 /100{WBC} Normal 0-0.5 [facility] Comment on above: Performed By: #### H S TROP #### [address] Platelet mean volume (Bld) [Entitic vol] 7.2 fL Normal 6.3-10.7 [facility] Comment on above: Performed By: #### H S TROP #### [address] Platelets (Bld) [#/Vol] 265 10*3/uL Normal 150-450 [facility] Comment on above: Performed By: #### H S TROP #### [address] RBC (Bld) [#/Vol] 4.07 10*6/uL Normal 3.60-5.00 [facility] Comment on above: Performed By: #### H S TROP #### [address] WBC (Bld) [#/Vol] 3.6 10*3/uL Low 3.8-11.6 [facility] Comment on above: Performed By: #### H S TROP #### [address] Creatinine [Mass/volume] in Serum or PlasmaOrdered By: Tammy Allan on 07-24-2024 Creatinine [Mass/Vol] Creatinine [Mass/v olume] in Serum or Plasma 0.60-1.20 [facility] Eosinophils Auto (Bld) [#/Vo l]Ordered By: Tammy Allan on 07-24-2024 Eosinophils (Bld) [#/Vol] Automated eosinophil count 0.0-0.45 [facility] Eosinophils/100 WBC Auto (Bl d)Ordered By: Tammy Allan on 07-24-2024 Eosinophils/100 WBC (Bld) Automated eosinophil % . [facility] Erythrocyte distribution wid th Auto (RBC) [Ratio]Ordered By: Tammy Allan on 07-24-2024 Erythrocyte distribution width (RBC) [Ratio] Erythrocyte distribution width [Ratio] by Automated count 11.9-15.3 [facility] Glucose [Mass/volume] in Ser um or PlasmaOrdered By: Tammy Allan on 07-24-2024 Glucose [Mass/Vol] Glucose [Mass/volume ] in Serum or Plasma High 70-100 [facility] Comment on above: ADA recommended refe rence rangeRandom Glucose Reference Range is dependent on time and content of last meal. Glucose of more than 200 mg/dL in a nonstressed, ambulatory subject supports the diagnosis of Diabetes Mellitus. Hematocrit Auto (Bld) [Volum e fraction]Ordered By: Tammy Allan on 07-24-2024 Hematocrit (Bld) [Volume fraction] Hematocrit [Volume Fraction] of Blood by Automated count 34.0-46.4 [facility] Hemoglobin [Mass/volume] in BloodOrdered By: Tammy Allan 07-24-2024 Hemoglobin (Bld) [Mass/Vol] Hemoglobin [Mass/volume] in Blood 11.8-15.4 [facility] INR in Platelet poor plasma by Coagulation assayOrdered By: Tammy Allan on 07-24-2024 INR Coag (PPP) [Relative time] INR in Platelet poor plasma by Coagulation assay [facility] Comment on above: INR Therapeutic Rang e A) Pre- and Peroperative OAT started two weeks before surgery. NOT HIP SURGERY: 1.5 - 2.5 HIP SURGERY: 2 - 3B) Primary and secondary prevention of venous THROMBOSIS: 2 - 3C) Active venous thrombosis, pulmonary embolismand prevention of recurrent venous thrombosis: 2 - 3D) Prevention of arterial thromboembolismincluding patients with mechanical heart valves: 3 - 4.5 Leukocytes [#/volume] correc tylor for nucleated erythrocytes in Blood by Automated counOrdered By: Tammy Allan on 07-24-2024 WBC corrected for nucl RBC Auto (Bld) [#/Vol] Leukocytes [#/volume] corrected for nucleated erythrocytes in Blood by Automated coun Low 3.8-11.6 [facility] Lymphocytes Auto (Bld) [#/Vo l]Ordered By: Tammy Allan on 07-24-2024 Lymphocytes (Bld) [#/Vol] Lymphocytes [#/volume] in Blood by Automated count 1.00-4.8 [facility] Lymphocytes/100 WBC Auto (Bl d)Ordered By: Tammy Allan on 07-24-2024 Lymphocytes/100 WBC (Bld) Lymphocytes/100 leukocytes in Blood by Automated count . [facility] MCH Auto (RBC) [Entitic mass ]Ordered By: Tammy Allan on 07-24-2024 MCH (RBC) [Entitic mass] MCH [Entitic ma ss] by Automated count 24.7-34.3 [facility] MCHC Auto (RBC) [Mass/Vol]Or dered By: Tammy Allan on 07-24-2024 MCHC (RBC) [Mass/Vol] MCHC [Mass/volume] by Automated count 32.0-35.0 [facility] MCV Auto (RBC) [Entitic vol] Ordered By: Tammy Allan on 07-24-2024 MCV (RBC) [Entitic vol] MCV [Entitic vol ume] by Automated count 80-100 [facility] Monocytes Auto (Bld) [#/Vol] Ordered By: Tammy Allan on 07-24-2024 Monocytes (Bld) [#/Vol] Automated blood monocyte count 0.0-0.8 [facility] Monocytes/100 WBC Auto (Bld) Ordered By: Tammy Allan on 07-24-2024 Monocytes/100 WBC (Bld) Automated monocyte % . [facility] Neutrophils Auto (Bld) [#/Vo l]Ordered By: Tammy Allan on 07-24-2024 Neutrophils (Bld) [#/Vol] Neutrophils [#/volume] in Blood by Automated count Low 1.8-7.7 [facility] Neutrophils/100 WBC Auto (Bl d)Ordered By: Tammy Allan on 07-24-2024 Neutrophils/100 WBC (Bld) Automated neutrophil % . [facility] No Panel InformationOrdered By: Tammy lAlan on 07-24-2024 Estimated GFR (CKD-EPI) > 60.0 mL/Min [facility] Creatinine Clearance (Chem N/A [facility] Nucleated erythrocytes [Pres ence] in Blood by Automated countOrdered By: Tammy Allan on 07-24-2024 Nucleated RBC Auto Ql (Bld) Nucleated erythrocytes [Presence] in Blood by Automated count 0-0.5 [facility] Partial Thromboplastin Timeo n 07-24-2024 aPTT Coag (Bld) [Time] 31.0 s Normal 25.1-36.5 [facility] Comment on above: Result Comment: A he matocrit value greater than 55% may lead to inaccurate results in coagulation testing. Patients having hematocrit values >55% require a special collection tube for coagulation studies. Please contact the laboratory at [phone] for redraw instructions. PERFORMED BY: [place] [address] PATHOLOGIST BRAND ENGINEER DEBORAH RAMIREZ M.D. Performed By: #### H S TROP #### [address] Platelet mean volume Auto (B ld) [Entitic vol]Ordered By: Tammy Allan on 07-24-2024 Platelet mean volume (Bld) [Entitic vol] Platelet mean volume [Entitic volume] in Blood by Automated count 6.3-10.7 [facility] Platelets Auto (Bld) [#/Vol] Ordered By: Tammy Allan on 07-24-2024 Platelets (Bld) [#/Vol] Platelets [#/vol ume] in Blood by Automated count 150-450 [facility] Potassium [Moles/volume] in Serum or PlasmaOrdered By: Tammy Allan on 07-24-2024 Potassium [Moles/Vol] Potassium [Moles/v olume] in Serum or Plasma 3.5-5.1 [facility] Prothrombin Time INRon 07-24 INR Coag (PPP) [Relative time] 1.0 {INR} Normal [facility] Comment on above: Result Comment: INR Therapeutic Range A) Pre- and Peroperative OAT started two weeks before surgery. NOT HIP SURGERY: 1.5 - 2.5 HIP SURGERY: 2 - 3 B) Primary and secondary prevention of venous THROMBOSIS: 2 - 3 C) Active venous thrombosis, pulmonary embolism and prevention of recurrent venous thrombosis: 2 - 3 D) Prevention of arterial thromboembolism including patients with mechanical heart valves: 3 - 4.5 Performed By: #### H S TROP #### [facility] [address] [place] [address] [place] PT Coag (PPP) [Time] 11.9 s Normal 9.0-12.9 [facility] Comment on above: Result Comment: A he matocrit value greater than 55% may lead to inaccurate results in coagulation testing. Patients having hematocrit values >55% require a special collection tube for coagulation studies. Please contact the laboratory at [phone] for redraw instructions. Performed By: #### H S TROP #### [facility] [address] [place] [address] [facility] Prothrombin time (PT)Ordered By: Tammy Allan on 07-24-2024 PT Coag (PPP) [Time] Prothrombin time (PT) 9.0- 12.9 [facility] Comment on above: A hematocrit value g reater than 55% may lead to inaccurate results in coagulation testing. Patients having hematocrit values >55% require a special collection tube for coagulation studies. Please contact the laboratory at [phone] for redraw instructions. RBC Auto (Bld) [#/Vol]Ordere d By: Tammy Allan on 07-24-2024 RBC (Bld) [#/Vol] Erythrocytes [#/volu me] in Blood by Automated count 3.60-5.00 [facility] Serum or plasma anion gap de terminationOrdered By: Tammy Allan on 07-24-2024 Anion gap [Moles/Vol] Serum or plasma an ion gap determination 6.0-15.0 [facility] Sodium [Moles/volume] in Ser um or PlasmaOrdered By: Tammy Allan on 07-24-2024 Sodium [Moles/Vol] Sodium [Moles/volume ] in Serum or Plasma 136-145 [facility] Urea nitrogen [Mass/volume] in Serum or PlasmaOrdered By: Tammy Allan on 07-24-2024 Urea nitrogen [Mass/Vol] Urea nitrogen [Mass/volume] in Serum or Plasma 7-25 [facility] Urine Cultureon 07-24-2024 Bacteria identified Cx Nom (U) ORGANISM: Escherichia coli (ESBL) (O:ESCCOLESBL) [place] Count >100,000 Aerobic DESMOND Charge ([id number]) SUSCEPTIBILITY ORGANISM: O:ESCCOLESBL ANTIBIOTIC INTERPRETATION DESMOND Amikacin S <16 Amoxacillin/K Clavulanate S <8 Ampicillin R* >16 Ampicillin/Sulbactam S 88/4 Aztreonam ESBL >16 Cefazolin R* >16 Cefepime R* >16 Ceftazidime ESBL >16 Ceftazidime/Avibactam S <4 Ceftolozane/Tazobactam S <2 Ceftriaxone ESBL >32 Cefuroxime R* >16 Ciprofloxacin R >2 Ertapenem S <0.5 Gentamicin S <2 Levofloxacin R >4 Meropenem S <1 Meropenem/Vaborbactam S <2 Nitrofurantoin S <32 Piperacillin/Tazobactam S <8 Tetracycline S <4 Tigecycline S <2 Tobramycin S <2 Trimethoprim/Sulfamethoxa zole S <0.5 S = SUSCEPTIBLE I = INTERMEDIATE R = RESISTANT BLANK = DATA NOT AVAILABLE, OR DRUG NOT ADVISABLE OR TESTED R* = RESISTANCE DUE TO EXTENDED SPECTRUM BETA-LACTAMASES ESBL = EXTENDED SPECTRUM BETA-LACTAMASE TFG = THYMIDINE-DEPENDENT STRAIN YO = BETA-LACTAMASE POSITIVE IB = INDUCIBLE BETA-LACTAMASE. APPEARS IN PLACE OF 'S' WITH SPECIES KNOWN TO POSSESS INDUCIBLE BETA-LACTAMASES. POTENTIALLY THEY MAY BECOME RESISTANT TO ALL B-LACTAM DRUGS. PERFORMED BY: [facility] [address] [place] [id number] PATHOLOGIST BRAND ENGINEER DEBORAH RAMIREZ M.D. Normal [facility] Comment on above: Performed By: #### C UU ####[facility] [id number] [place] [id number] [facility] Urine cultureOrdered By: Giovanna Allan on 07-24-2024 Bacteria identified Cx Nom (U) Abnormal [facility] Bacteria identified Cx Nom (U) Abnormal [facility] WBC Auto (Bld) [#/Vol]Ordere d By: Tammy Allan on 07-24-2024 WBC (Bld) [#/Vol] Leukocytes [#/volume ] in Blood by Automated count Low 3.8-11.6 [facility] aPTT in Platelet poor plasma by Coagulation assayOrdered By: Tammy Allan on 07-24-2024 aPTT Coag (PPP) [Time] Activated partial thromboplastin time (aPTT) in platelet poor plasma by coagulation a 25.1-36.5 [facility] Comment on above: A hematocrit value g reater than 55% may lead to inaccurate results in coagulation testing. Patients having hematocrit values >55% require a special collection tube for coagulation studies. Please contact the laboratory at [phone] for redraw instructions. Automated basophil %Ordered By: Yuriy Triana on 05-23-2024 Basophils/100 WBC (Bld) 0.3 % Normal . [facility] Comment on above: Performed By: #### M Marco, BMP, SCAN CBC ####[place] [id number] [address] Automated basophil countOrde red By: Yuriy Triana on 05-23-2024 Basophils (Bld) [#/Vol] 0.0 10*3/uL Normal 0.0-0.2 [facility] Comment on above: Result Comment: PERF ORMED BY: [facility] [address] [place] [address] PATHOLOGIST BRAND ENGINEER TIMA MEYER M.D. Performed By: #### M Marco, BMP, SCAN CBC ####[address] Automated blood monocyte cou ntOrdered By: Yuriy Triana on 05-23-2024 Monocytes (Bld) [#/Vol] 1.1 10*3/uL High 0.0-0.8 [facility] Comment on above: Performed By: #### M G, BMP, SCAN CBC ####[address] Automated eosinophil %Ordere d By: Yuriy Triana on 05-23-2024 Eosinophils/100 WBC (Bld) 3.6 % Normal . [facility] Comment on above: Performed By: #### M G, BMP, SCAN CBC ####[place] [id number] [address] Automated eosinophil countOr dered By: Yuriy Triana on 05-23-2024 Eosinophils (Bld) [#/Vol] 0.3 10*3/uL Normal 0.0-0.45 [facility] Comment on above: Performed By: #### M G, BMP, SCAN CBC ####[address] Automated monocyte %Ordered By: Yuriy Triana on 05-23-2024 Monocytes/100 WBC (Bld) 11.9 % Normal . [facility] Comment on above: Performed By: #### M G, BMP, SCAN CBC ####[address] Automated neutrophil %Ordere d By: Yuriy Triana on 05-23-2024 Neutrophils/100 WBC (Bld) 68.6 % Normal . [facility] Comment on above: Performed By: #### M G, BMP, SCAN CBC ####[address] Basic Metabolic Panelon 05-03 Creatinine Clr Calc Pharmacy 92.83 Normal [facility] Comment on above: Performed By: #### M G, BMP, SCAN CBC ####[address] GFR/1.73 sq M.predicted MDRD (S/P/Bld) [Vol rate/Area] mL/min/{1.73_m2} Normal [facility] Comment on above: Performed By: #### M G, BMP, SCAN CBC ####[address] Basophils Auto (Bld) [#/Vol] Ordered By: Yuriy Triana on 05-23-2024 Basophils (Bld) [#/Vol] Automated basophil count 0.0-0.2 [facility] Basophils/100 WBC Auto (Bld) Ordered By: Yuriy Triana on 05-23-2024 Basophils/100 WBC (Bld) Automated basophil % . [facility] Calcium [Mass/volume] in Ser um or PlasmaOrdered By: Yuriy Triana on 05-23-2024 Calcium [Mass/Vol] 8.8 mg/dL Normal 8.6-10.[address] [facility] Comment on above: Performed By: #### M RENATO Lara, SCAN CBC ####[place] [id number] [facility] Calcium [Mass/Vol] Calcium [Mass/volume ] in Serum or Plasma 8.6-10.3 [facility] Carbon dioxide, total [Moles /volume] in Serum or PlasmaOrdered By: Yuriy Triana on 05-23-2024 CO2 [Moles/Vol] 28.2 mmol/L Normal 21.0-31.0 [facility] Comment on above: Performed By: #### M RENATO Lara, SCAN CBC ####[place] [id number] [facility] CO2 [Moles/Vol] Carbon dioxide, tota l [Moles/volume] in Serum or Plasma 21.0-31.0 [facility] Chloride [Moles/volume] in S black or PlasmaOrdered By: Yuriy Triana on 05-23-2024 Chloride [Moles/Vol] 101 mmol/L Normal 98-107 [facility] Comment on above: Performed By: #### M Marco BMP, SCAN CBC ####[facility] [address] [place], [place] [id number] [facility] Chloride [Moles/Vol] Chloride [Moles/vol ume] in Serum or Plasma 98-107 [facility] Creatinine [Mass/volume] in Serum or PlasmaOrdered By: Yuryi Triana on 05-23-2024 Creatinine [Mass/Vol] 0.81 mg/dL Normal 0.60-1.20 [facility] Comment on above: Performed By: #### M Marco, BMP, SCAN CBC ####[facility] [id number] [place], [place] [id number] [facility] Creatinine [Mass/Vol] Creatinine [Mass/v olume] in Serum or Plasma 0.60-1.20 [facility] Eosinophils Auto (Bld) [#/Vo l]Ordered By: Yuriy Triana on 05-23-2024 Eosinophils (Bld) [#/Vol] Automated eosinophil count 0.0-0.45 [facility] Eosinophils/100 WBC Auto (Bl d)Ordered By: Yuriy Triana on 05-23-2024 Eosinophils/100 WBC (Bld) Automated eosinophil % . [facility] Erythrocyte distribution wid th Auto (RBC) [Ratio]Ordered By: Yuriy Triana on 05-23-2024 Erythrocyte distribution width (RBC) [Ratio] Erythrocyte distribution width [Ratio] by Automated count 11.9-15.3 [facility] Erythrocyte distribution wid th [Ratio] by Automated countOrdered By: Yuriy Triana on 05-23-2024 Erythrocyte distribution width (RBC) [Ratio] 14.3 % Normal 11.9-15.3 [facility] Comment on above: Performed By: #### M G, BMP, SCAN CBC ####[facility] [id number] [place] [id number] [facility] Erythrocyte morphology findi ng [Identifier] in BloodOrdered By: Yuriy Triana on 05-23-2024 RBC morphology finding Nom (Bld) RBC morphology Normal [facility] Erythrocytes [#/volume] in B lood by Automated countOrdered By: Yuriy Triana on 05-23-2024 RBC (Bld) [#/Vol] 4.11 10*6/uL Normal 3.60-5.00 [facility] Comment on above: Performed By: #### M G, BMP, SCAN CBC ####[facility] [id number] [place] [id number] [facility] Glucose [Mass/volume] in Ser um or PlasmaOrdered By: Yuriy Triana on 05-23-2024 Glucose [Mass/Vol] 122 mg/dL High 70-[address] [facility] Comment on above: ADA recommended refe rence rangeRandom Glucose Reference Range is dependent on time and content of last meal. Glucose of more than 200 mg/dL in a nonstressed, ambulatory subject supports the diagnosis of Diabetes Mellitus. Result Comment: [place] [facility] Glucose Reference Range is dependent on time and content of last meal. Glucose of more than 200 mg/dL in a nonstressed, ambulatory subject supports the diagnosis of Diabetes Mellitus. ADA recommended reference range Performed By: #### M RENATO Lara, SCAN CBC ####[facility] [id number] [place] [id number] [facility] Glucose [Mass/Vol] Glucose [Mass/volume ] in Serum or Plasma High 70-100 [facility] Comment on above: ADA recommended refe rence rangeRandom Glucose Reference Range is dependent on time and content of last meal. Glucose of more than 200 mg/dL in a nonstressed, ambulatory subject supports the diagnosis of Diabetes Mellitus. Hematocrit Auto (Bld) [Volum e fraction]Ordered By: Yuriy Triana on 05-23-2024 Hematocrit (Bld) [Volume fraction] Hematocrit [Volume Fraction] of Blood by Automated count 34.0-46.4 [facility] Hematocrit [Volume Fraction] of Blood by Automated countOrdered By: Yuriy Triana on 05-23-2024 Hematocrit (Bld) [Volume fraction] 37.1 % Normal 34.0-46.4 [facility] Comment on above: Performed By: #### M RENATO Lara, SCAN CBC ####[place] [address] [place] [id number] [facility] Hemoglobin [Mass/volume] in BloodOrdered By: Yuriy Triana on 05-23-2024 Hemoglobin (Bld) [Mass/Vol] 12.6 g/dL Normal 11.8-15.4 [facility] Comment on above: Performed By: #### M RENATO Lara, SCAN CBC ####[place] [address] [place] [id number] [facility] Hemoglobin (Bld) [Mass/Vol] Hemoglobin [Mass/volume] in Blood 11.8-15.4 [facility] Leukocytes [#/volume] correc tylor for nucleated erythrocytes in Blood by Automated counOrdered By: Yuriy Triana on 10-22-2024 WBC corrected for nucl RBC Auto (Bld) [#/Vol] 9.5 10*3/uL 3.8-11.6 [facility] WBC corrected for nucl RBC Auto (Bld) [#/Vol] Leukocytes [#/volume] corrected for nucleated erythrocytes in Blood by Automated coun 3.8-11.6 [facility] Leukocytes [#/volume] in Blo od by Automated countOrdered By: Yuriy Triana on 05-23-2024 WBC (Bld) [#/Vol] 9.5 10*3/uL Normal 3.8-11.[address] [facility] Comment on above: Performed By: #### M G, BMP, SCAN CBC ####[facility] [id number] Lymphocytes Auto (Bld) [#/Vo l]Ordered By: Yuriy Triana on 05-23-2024 Lymphocytes (Bld) [#/Vol] Lymphocytes [#/volume] in Blood by Automated count 1.00-4.8 [facility] Lymphocytes [#/volume] in Bl ood by Automated countOrdered By: Yuriy Triana on 05-23-2024 Lymphocytes (Bld) [#/Vol] 1.5 10*3/uL Normal 1.00-4.8 [facility] Comment on above: Performed By: #### M G, BMP, SCAN CBC ####[facility] [id number] [place] [id number] [facility] Lymphocytes/100 WBC Auto (Bl d)Ordered By: Yuriy Triana on 05-23-2024 Lymphocytes/100 WBC (Bld) Lymphocytes/100 leukocytes in Blood by Automated count . [facility] Lymphocytes/100 leukocytes i n Blood by Automated countOrdered By: Yuriy Triana on 05-23-2024 Lymphocytes/100 WBC (Bld) 15.6 % Normal . [facility] Comment on above: Performed By: #### M G, BMP, SCAN CBC ####[facility] [id number] [place] [address] [facility] MCH Auto (RBC) [Entitic mass ]Ordered By: Yuriy Triana on 05-23-2024 MCH (RBC) [Entitic mass] MCH [Entitic ma ss] by Automated count 24.7-34.3 [facility] MCH [Entitic mass] by Automa tylor countOrdered By: Yuriy Triana on 05-23-2024 MCH (RBC) [Entitic mass] 30.7 pg Normal 24.7-34.3 [facility] Comment on above: Performed By: #### M G, BMP, SCAN CBC ####[facility] [id number] [place] [id number] [facility] MCHC Auto (RBC) [Mass/Vol]Or dered By: Yuriy Triana on 05-23-2024 MCHC (RBC) [Mass/Vol] 34.0 g/dL 32.0-35.0 [facility] MCHC (RBC) [Mass/Vol] MCHC [Mass/volume] by Automated count 32.0-35.0 [facility] MCV Auto (RBC) [Entitic vol] Ordered By: Yuriy Triana on 05-23-2024 MCV (RBC) [Entitic vol] MCV [Entitic vol ume] by Automated count 80-100 [facility] MCV [Entitic volume] by Auto mated countOrdered By: Yuriy Triana on 05-23-2024 MCV (RBC) [Entitic vol] 90.3 fL Normal 80-100 [facility] Comment on above: Performed By: #### M G, BMP, SCAN CBC ####[place] [address] [place] [id number] [facility] Magnesium [Mass/volume] in S black or PlasmaOrdered By: Yuriy Triana on 05-23-2024 Magnesium [Mass/Vol] 1.5 mg/dL Low 1.9-2.7 [facility] Comment on above: Result Comment: PERF ORMED BY: [facility] [address] [place] [address] PATHOLOGIST BRAND ENGINEER TIMA MEYER M.D. Performed By: #### M Marco, BMP, SCAN CBC ####[place] [address] [place] [id number] [facility] Magnesium [Mass/Vol] Magnesium [Mass/vol ume] in Serum or Plasma Low 1.9-2.7 [facility] Monocytes Auto (Bld) [#/Vol] Ordered By: Yuriy Triana on 05-23-2024 Monocytes (Bld) [#/Vol] Automated blood monocyte count High 0.0-0.8 [facility] Monocytes/100 WBC Auto (Bld) Ordered By: Yuriy Triana on 05-23-2024 Monocytes/100 WBC (Bld) Automated monocyte % . [facility] Neutrophils Auto (Bld) [#/Vo l]Ordered By: Yuriy Triana on 05-23-2024 Neutrophils (Bld) [#/Vol] Neutrophils [#/volume] in Blood by Automated count 1.8-7.7 [facility] Neutrophils [#/volume] in Bl ood by Automated countOrdered By: Yuriy Triana on 05-23-2024 Neutrophils (Bld) [#/Vol] 6.5 10*3/uL Normal 1.8-7.7 [facility] Comment on above: Performed By: #### M G, BMP, SCAN CBC ####[facility] [id number] [place] [id number] [facility] Neutrophils/100 WBC Auto (Bl d)Ordered By: Yuriy Triana on 05-23-2024 Neutrophils/100 WBC (Bld) Automated neutrophil % . [facility] No Panel InformationOrdered By: Yuriy Triana on 05-23-2024 Estimated GFR (CKD-EPI) > 60.0 mL/Min [facility] Creatinine Clearance (Chem 92.83 [facility] Nucleated erythrocytes [Pres ence] in Blood by Automated countOrdered By: Yuriy Triana on 05-23-2024 Nucleated RBC Auto Ql (Bld) 0.0 /100{WBC} 0-0.5 [facility] Nucleated RBC Auto Ql (Bld) Nucleated erythrocytes [Presence] in Blood by Automated count 0-0.5 [facility] Platelet adequacy [Presence] in Blood by Light microscopyOrdered By: Yuriy Triana on 05-23-2024 Platelets LM Ql (Bld) Decreased Normal [facility] Platelets LM Ql (Bld) Platelet adequacy [Presence] in Blood by Light microscopy Normal [facility] Platelet mean volume Auto (B ld) [Entitic vol]Ordered By: Yuriy Triana on 05-23-2024 Platelet mean volume (Bld) [Entitic vol] Platelet mean volume [Entitic volume] in Blood by Automated count 6.3-10.7 [facility] Platelet mean volume [Entiti c volume] in Blood by Automated countOrdered By: Yuriy Triana on 05-23-2024 Platelet mean volume (Bld) [Entitic vol] 8.3 fL Normal 6.3-10.7 [facility] Comment on above: Performed By: #### M G, BMP, SCAN CBC ####[place] [id number] [address] Platelet morphology finding [Identifier] in BloodOrdered By: Yuriy Triana on 05-23-2024 Platelet morphology finding Nom (Bld) Normal Normal [facility] Platelet morphology finding Nom (Bld) Platelet morphology finding [Identifier] in Blood Normal [facility] Platelets Auto (Bld) [#/Vol] Ordered By: Yuriy Triana on 05-23-2024 Platelets (Bld) [#/Vol] Platelets [#/vol ume] in Blood by Automated count Invalid Interpretation Code 150-450 [facility] Comment on above: Delta: 96 on Platelets [#/volume] in Bloo d by Automated countOrdered By: Yuriy Triana on 05-23-2024 Platelets (Bld) [#/Vol] 125 10*3/uL Signific ant change down 150-450 [facility] Comment on above: Delta: 96 on Performed By: #### M G, BMP, SCAN CBC ####[facility] [place], [place] [id number] [facility] Potassium [Moles/volume] in Serum or PlasmaOrdered By: Yuriy Triana on 05-23-2024 Potassium [Moles/Vol] 3.6 mmol/L Normal 3.5-5.1 [facility] Comment on above: Hemolysis is present at a level that could interfere with the result.Contact lab if redraw is required Result Comment: Hemo lysis is present at a level that could interfere with the result. Contact lab if redraw is required Performed By: #### M G, BMP, SCAN CBC ####[address] Potassium [Moles/Vol] Potassium [Moles/v olume] in Serum or Plasma 3.5-5.1 [facility] Comment on above: Hemolysis is present at a level that could interfere with the result.Contact lab if redraw is required RBC Auto (Bld) [#/Vol]Ordere d By: Yuriy Triana on 05-23-2024 RBC (Bld) [#/Vol] Erythrocytes [#/volu me] in Blood by Automated count 3.60-5.00 [facility] RBC morphologyOrdered By: Fr shannon Triana on 05-23-2024 RBC morphology finding Nom (Bld) Normal Normal Normal [facility] Comment on above: Performed By: #### M G, BMP, SCAN CBC ####[address] Scan and CBCon 05-23-2024 Mean Corpuscular HGB Conc 34.0 g/dL Normal 32.0-35.0 [facility] Comment on above: Performed By: #### M G, BMP, SCAN CBC ####[address] NRBC% 0.0 /100{WBC} Normal 0-0.5 [facility] Comment on above: Performed By: #### M G, BMP, SCAN CBC ####[address] Platelet Estimate Decreased Normal Normal [facility] Comment on above: Performed By: #### M G, BMP, SCAN CBC ####[address] Platelet Morphology Normal Normal Normal [facility] Comment on above: Result Comment: PERF ORMED BY: [facility] [address] [place] [address] PATHOLOGIST BRAND ENGINEER TIMA MEYER M.D. Performed By: #### M G, BMP, SCAN CBC ####[facility] [id number] [place] [id number] [facility] Serum or plasma anion gap de terminationOrdered By: Yuriy Triana on 05-23-2024 Anion gap [Moles/Vol] 11.4 mmol/L Normal 6.0-15.0 [facility] Comment on above: Performed By: #### M Marco, BMP, SCAN CBC ####[place] [address] [address] Anion gap [Moles/Vol] Serum or plasma an ion gap determination 6.0-15.0 [facility] Sodium [Moles/volume] in Ser um or PlasmaOrdered By: Yuriy Triana on 05-23-2024 Sodium [Moles/Vol] 137 mmol/L Normal 136-[address] [facility] Comment on above: Performed By: #### M Marco, BMP, SCAN CBC ####[place] [id number] [facility] Sodium [Moles/Vol] Sodium [Moles/volume ] in Serum or Plasma 136-145 [facility] Urea nitrogen [Mass/volume] in Serum or PlasmaOrdered By: Yuriy Triana on 05-23-2024 Urea nitrogen [Mass/Vol] 22 mg/dL Normal 02-23 [facility] Comment on above: Performed By: #### M G, BMP, SCAN CBC ####[facility] [address] [place] [address] Urea nitrogen [Mass/Vol] Urea nitrogen [Mass/volume] in Serum or Plasma 02-23 [facility] WBC Auto (Bld) [#/Vol]Ordere d By: Yuriy Triana on 05-23-2024 WBC (Bld) [#/Vol] Leukocytes [#/volume ] in Blood by Automated count 3.8-11.6 [facility] Alanine aminotransferase [En zymatic activity/volume] in Serum or PlasmaOrdered By: Luis Santoro on 05-22-2024 ALT [Catalytic activity/Vol] 18 U/L Normal [facility] Comment on above: Performed By: #### M G, PHOS, DIFF CBC, CMP ####[place] [id number] [address] ALT [Catalytic activity/Vol] Alanine aminotransferase [Enzymatic activity/volume] in Serum or Plasma [facility] Albumin [Mass/volume] in Ser um or Plasma by Bromocresol green (BCG) dye binding methoOrdered By: Luis Santoro on 05-22-2024 Albumin BCG dye [Mass/Vol] 2.4 g/dL Low 3.5-5.7 [facility] Albumin BCG dye [Mass/Vol] Albumin [Mass/volume] in Serum or Plasma by Bromocresol green (BCG) dye binding metho Low 3.5-5.7 [facility] Alkaline phosphatase [Enzyma tic activity/volume] in Serum or PlasmaOrdered By: Luis Santoro on 05-22-2024 ALP [Catalytic activity/Vol] 185 U/L High [address] [place] [address] Comment on above: Performed By: #### M Marco PHOS, DIFF CBC, CMP ####[place] [id number] [facility] ALP [Catalytic activity/Vol] Alkaline phosphatase [Enzymatic activity/volume] in Serum or Plasma High [address] Aspartate aminotransferase [ Enzymatic activity/volume] in Serum or PlasmaOrdered By: Luis Santoro on 05-22-2024 AST [Catalytic activity/Vol] 28 U/L Normal [facility] Comment on above: Performed By: #### M G, PHOS, DIFF CBC, CMP ####[place] [address] [place] [id number] [facility] AST [Catalytic activity/Vol] Aspartate aminotransferase [Enzymatic activity/volume] in Serum or Plasma [facility] Band form neutrophils/100 WB C Manual cnt (Bld)Ordered By: Luis Santoro on 05-22-2024 Band form neutrophils/100 WBC (Bld) Peripheral white blood cell differential % bands, microscopic exam High 0-5 [facility] Bilirubin.total [Mass/volume ] in Serum or PlasmaOrdered By: Luis Santoro on 05-22-2024 Bilirubin [Mass/Vol] 0.5 mg/dL Normal 0.3-1.0 [facility] Comment on above: Performed By: #### M G, PHOS, DIFF CBC, CMP ####[address] Bilirubin [Mass/Vol] Bilirubin.total [Mass/volume] in Serum or Plasma 0.3-1.0 [facility] Comprehensive Metabolic Pane dwayne 05-22-2024 Albumin [Mass/Vol] 2.4 g/dL Low 3.5-5.7 [facility] Comment on above: Performed By: #### M G, PHOS, DIFF CBC, CMP ####[address] Anion gap [Moles/Vol] 9.3 mmol/L Normal 6.0-15.0 [facility] Comment on above: Performed By: #### M G, PHOS, DIFF CBC, CMP ####[address] Calcium [Mass/Vol] 8.9 mg/dL Normal 8.6-10.3 [facility] Comment on above: Performed By: #### M G, PHOS, DIFF CBC, CMP ####[place] [id number] [facility] Chloride [Moles/Vol] 103 mmol/L Normal 98-107 [facility] Comment on above: Performed By: #### M G, PHOS, DIFF CBC, CMP ####[place] [id number] [facility] CO2 [Moles/Vol] 28.1 mmol/L Normal 21.0-31.0 [facility] Comment on above: Performed By: #### M G, PHOS, DIFF CBC, CMP ####[address] [place] [address] [place] Creatinine [Mass/Vol] 0.89 mg/dL Normal 0.60-1.20 [facility] Comment on above: Performed By: #### M G, PHOS, DIFF CBC, CMP ####[place] [phone] [place] Creatinine Clr Calc Pharmacy 84.49 Normal [facility] Comment on above: Performed By: #### M G, PHOS, DIFF CBC, CMP ####[place] [address] [place] GFR/1.73 sq M.predicted MDRD (S/P/Bld) [Vol rate/Area] mL/min/{1.73_m2} Normal [facility] Comment on above: Performed By: #### M G, PHOS, DIFF CBC, CMP ####[address] Glucose [Mass/Vol] 121 mg/dL High 70-100 [facility] Comment on above: Result Comment: [facility] Glucose Reference Range is dependent on time and content of last meal. Glucose of more than 200 mg/dL in a nonstressed, ambulatory subject supports the diagnosis of Diabetes Mellitus. ADA recommended reference range Performed By: #### M G, PHOS, DIFF CBC, CMP ####[address] Potassium [Moles/Vol] 3.4 mmol/L Low 3.5-5.1 [facility] Comment on above: Performed By: #### M G, PHOS, DIFF CBC, CMP ####[place] [address] [place] Sodium [Moles/Vol] 137 mmol/L Normal 136-145 [facility] Comment on above: Performed By: #### M G, PHOS, DIFF CBC, CMP ####[address] Urea nitrogen [Mass/Vol] 22 mg/dL Normal 7-25 [facility] Comment on above: Performed By: #### M G, PHOS, DIFF CBC, CMP ####[facility] Diff and CBCon 05-22-2024 Erythrocyte distribution width (RBC) [Ratio] 14.6 % Normal 11.9-15.3 [facility] Comment on above: Performed By: #### S CAN CBC, CMP, MG, PHOS #### [address] Hematocrit (Bld) [Volume fraction] 35.0 % Normal 34.0-46.4 [facility] Comment on above: Performed By: #### S CAN CBC, CMP, MG, PHOS #### [address] Hemoglobin (Bld) [Mass/Vol] 12.0 g/dL Normal 11.8-15.4 [facility] Comment on above: Performed By: #### S CAN CBC, CMP, MG, PHOS #### [address] MCH (RBC) [Entitic mass] 30.9 pg Normal 24.7-34.3 [facility] Comment on above: Performed By: #### S CAN CBC, CMP, MG, PHOS #### [address] MCV (RBC) [Entitic vol] 90.4 fL Normal 80-100 [facility] Comment on above: Performed By: #### S CAN CBC, CMP, MG, PHOS #### [address] Mean Corpuscular HGB Conc 34.2 g/dL Normal 32.0-35.0 [facility] Comment on above: Performed By: #### S CAN CBC, CMP, MG, PHOS #### [address] Metamyelocytes 1 % High 0-0 [facility] Comment on above: Performed By: #### S CAN CBC, CMP, MG, PHOS #### [address] Platelet Estimate Decreased Normal Normal [facility] Comment on above: Performed By: #### S CAN CBC, CMP, MG, PHOS #### [address] Platelet mean volume (Bld) [Entitic vol] 8.3 fL Normal 6.3-10.7 [facility] Comment on above: Result Comment: PERF ORMED BY: [place] [address] PATHOLOGIST BRAND ENGINEER TIMA MEYER M.D. Performed By: #### S CAN CBC, CMP, MG, PHOS #### [address] Platelet Morphology Normal Normal Normal [facility] Comment on above: Result Comment: PERF ORMED BY: [place] [address] PATHOLOGIST BRAND ENGINEER TIMA MEYER M.D. Performed By: #### S CAN CBC, CMP, MG, PHOS #### [address] Platelets (Bld) [#/Vol] 96 10*3/uL Low 150-450 [facility] Comment on above: Performed By: #### S CAN CBC, CMP, MG, PHOS #### [address] RBC (Bld) [#/Vol] 3.87 10*6/uL Normal 3.60-5.00 [facility] Comment on above: Performed By: #### S CAN CBC, CMP, MG, PHOS #### [address] RBC morphology finding Nom (Bld) Normal Normal Normal [facility] Comment on above: Performed By: #### S CAN CBC, CMP, MG, PHOS #### [address] WBC (Bld) [#/Vol] 7.6 10*3/uL Normal 3.8-11.6 [facility] Comment on above: Performed By: #### S CAN CBC, CMP, MG, PHOS #### [facility] [facility] [address] [place] [address] [place] Eosinophils/100 WBC Manual c nt (Bld)Ordered By: Luis Santoro on 05-22-2024 Eosinophils/100 WBC (Bld) Eosinophils/100 leukocytes in Blood by Manual count [address] Eosinophils/100 leukocytes i n Blood by Manual countOrdered By: Luis Santoro on 05-22-2024 Eosinophils/100 WBC (Bld) 7 % High 13 [facility] Comment on above: Performed By: #### S CAN CBC, CMP, MG, PHOS #### [facility] [address] Globulin Calc (S) [Mass/Vol] Ordered By: Luis Santoro on 05-22-2024 Globulin (S) [Mass/Vol] Serum globulin measurement by calculation (mass/volume) [facility] Lymphocytes/100 WBC Manual c nt (Bld)Ordered By: Luis Santoro on 05-22-2024 Lymphocytes/100 WBC (Bld) Lymphocytes/100 leukocytes in Blood by Manual count Low 18-42 [facility] Lymphocytes/100 leukocytes i n Blood by Manual countOrdered By: Luis Santoro on 05-22-2024 Lymphocytes/100 WBC (Bld) 10 % Low 18-42 [facility] Comment on above: Performed By: #### S CAN CBC, CMP, MG, PHOS #### [facility] [address] Magnesiumon 05-22-2024 Magnesium [Mass/Vol] 1.6 mg/dL Low 1.9-2.7 [facility] Comment on above: Result Comment: PERF ORMED BY: [place] [address] PATHOLOGIST BRAND ENGINEER TIMA MEYER M.D. Performed By: #### M G, PHOS, DIFF CBC, CMP ####[facility] [id number] Manual blood segmented neutr ophils/100 leukocytesOrdered By: Luis Santoro on 05-22-2024 Segmented neutrophils/100 WBC (Bld) 69 % Normal 50-70 [facility] Comment on above: Performed By: #### S CAN CBC, CMP, MG, PHOS #### [facility] [address] [place] [address] [place] Metamyelocytes/100 WBC Manua l cnt (Bld)Ordered By: Luis Santoro on 05-22-2024 Metamyelocytes/100 WBC (Bld) 1 % High 0-0 [facility] Metamyelocytes/100 WBC (Bld) Metamyelocytes/100 leukocytes in Blood by Manual count High 0-0 [facility] Monocytes/100 WBC Manual cnt (Bld)Ordered By: Luis Santoro on 05-22-2024 Monocytes/100 WBC (Bld) Monocytes/100 le ukocytes in Blood by Manual count -11 [facility] Monocytes/100 leukocytes in Blood by Manual countOrdered By: Luis Santoro on 05-22-2024 Monocytes/100 WBC (Bld) 8 % Normal 2-11 [facility] Comment on above: Performed By: #### S CAN CBC, CMP, MG, PHOS #### [facility] [address] [place] [address] [place] Peripheral white blood cell differential % bands, microscopic examOrdered By: Luis Santoro on 05-22-2024 Band form neutrophils/100 WBC (Bld) 6 % High 0-5 [facility] Comment on above: Performed By: #### S CAN CBC, CMP, MG, PHOS #### [facility] [address] [place] [address] [place] Phosphate [Mass/volume] in S black or PlasmaOrdered By: Luis Santoro on 05-22-2024 Phosphate [Mass/Vol] 2.8 mg/dL Normal 2.5-4.5 [facility] Comment on above: Performed By: #### M G, PHOS, DIFF CBC, CMP ####[facility] [id number] [place] [address] [place] Phosphate [Mass/Vol] Phosphate [Mass/vol ume] in Serum or Plasma 2.5-4.5 [facility] Protein [Mass/volume] in Ser um or PlasmaOrdered By: Luis Santoro on 05-22-2024 Protein [Mass/Vol] 6.1 g/dL Low 6.4-8.[address] [facility] Comment on above: Performed By: #### M G, PHOS, DIFF CBC, CMP ####[place] [id number] [address] Protein [Mass/Vol] Protein [Mass/volume ] in Serum or Plasma Low 6.4-8.9 [facility] Segmented neutrophils/100 WB C Manual cnt (Bld)Ordered By: Luis Santoro on 05-22-2024 Segmented neutrophils/100 WBC (Bld) Manual blood segmented neutrophils/100 leukocytes 50-70 [facility] Serum globulin measurement b y calculation (mass/volume)Ordered By: Luis Santoro on 05-22-2024 Globulin (S) [Mass/Vol] 3.7 g/dL Normal [facility] Comment on above: Performed By: #### M G, PHOS, DIFF CBC, CMP ####[address] Serum or plasma albumin/glob ulin mass ratioOrdered By: Luis Santoro on 05-22-2024 Albumin/Globulin [Mass ratio] 0.6 {ratio} Normal [facility] Comment on above: Performed By: #### M G, PHOS, DIFF CBC, CMP ####[address] Albumin/Globulin [Mass ratio] Serum or plasma albumin/globulin mass ratio [facility] Comprehensive Metabolic Pane dwayne 05-21-2024 Albumin [Mass/Vol] 2.5 g/dL Low 3.5-5.7 [facility] Comment on above: Performed By: #### S CAN CBC, CMP, MG, PHOS #### [facility] [address] Albumin/Globulin [Mass ratio] 0.7 {ratio} Normal [facility] Comment on above: Performed By: #### S CAN CBC, CMP, MG, PHOS #### [address] ALP [Catalytic activity/Vol] 133 U/L High 34-104 [facility] Comment on above: Performed By: #### S CAN CBC, CMP, MG, PHOS #### [address] ALT [Catalytic activity/Vol] 13 U/L Normal 7-52 [facility] Comment on above: Performed By: #### S CAN CBC, CMP, MG, PHOS #### [address] Anion gap [Moles/Vol] 10.0 mmol/L Normal 6.0-15.0 [facility] Comment on above: Performed By: #### S CAN CBC, CMP, MG, PHOS #### [address] AST [Catalytic activity/Vol] 20 U/L Normal 13-39 [facility] Comment on above: Performed By: #### S CAN CBC, CMP, MG, PHOS #### [address] Bilirubin [Mass/Vol] 0.5 mg/dL Normal 0.3-1.0 [facility] Comment on above: Performed By: #### S CAN CBC, CMP, MG, PHOS #### [address] Calcium [Mass/Vol] 8.3 mg/dL Low 8.6-10.3 [facility] Comment on above: Performed By: #### S CAN CBC, CMP, MG, PHOS #### [address] Chloride [Moles/Vol] 105 mmol/L Normal 98-107 [facility] Comment on above: Performed By: #### S CAN CBC, CMP, MG, PHOS #### [address] CO2 [Moles/Vol] 25.5 mmol/L Normal 21.0-31.0 [facility] Comment on above: Performed By: #### S CAN CBC, CMP, MG, PHOS #### [facility] [address] Creatinine [Mass/Vol] 1.06 mg/dL Normal 0.60-1.20 [facility] Comment on above: Performed By: #### S CAN CBC, CMP, MG, PHOS #### [facility] [address] Creatinine Clr Calc Pharmacy 71.14 Normal [facility] Comment on above: Performed By: #### S CAN CBC, CMP, MG, PHOS #### [facility] [address] GFR/1.73 sq M.predicted MDRD (S/P/Bld) [Vol rate/Area] 59.028 mL/min/{1.73_m2} Normal [facility] Comment on above: Performed By: #### S CAN CBC, CMP, MG, PHOS #### [facility] [address] Globulin (S) [Mass/Vol] 3.7 g/dL Normal [facility] Comment on above: Performed By: #### S CAN CBC, CMP, MG, PHOS #### [address] Glucose [Mass/Vol] 105 mg/dL High 70-100 [facility] Comment on above: Result Comment: [facility] Glucose Reference Range is dependent on time and content of last meal. Glucose of more than 200 mg/dL in a nonstressed, ambulatory subject supports the diagnosis of Diabetes Mellitus. ADA recommended reference range Performed By: #### S CAN CBC, CMP, MG, PHOS #### [address] Potassium [Moles/Vol] 3.5 mmol/L Normal 3.5-5.1 [facility] Comment on above: Result Comment: Hemo lysis is present at a level that could interfere with the result. Contact lab if redraw is required Performed By: #### S CAN CBC, CMP, MG, PHOS #### [address] Protein [Mass/Vol] 6.2 g/dL Low 6.4-8.9 [facility] Comment on above: Performed By: #### S CAN CBC, CMP, MG, PHOS #### [address] Sodium [Moles/Vol] 137 mmol/L Normal 136-145 [facility] Comment on above: Performed By: #### S CAN CBC, CMP, MG, PHOS #### [address] Urea nitrogen [Mass/Vol] 23 mg/dL Normal 7-25 [facility] Comment on above: Performed By: #### S CAN CBC, CMP, MG, PHOS #### [address] Magnesiumon 05-21-2024 Magnesium [Mass/Vol] 1.8 mg/dL Low 1.9-2.7 [facility] Comment on above: Result Comment: PERF ORMED BY: [place] [address] PATHOLOGIST BRAND ENGINEER TIMA MEYER M.D. Performed By: #### S CAN CBC, CMP, MG, PHOS #### [address] Phosphoruson 05-21-2024 Phosphate [Mass/Vol] 2.7 mg/dL Normal 2.5-4.5 [facility] Comment on above: Performed By: #### S CAN CBC, CMP, MG, PHOS #### [address] Scan and CBCon 05-21-2024 Basophils (Bld) [#/Vol] 0.1 10*3/uL Normal 0.0-0.2 [facility] Comment on above: Performed By: #### S CAN CBC, CMP, MG, PHOS #### [address] Basophils/100 WBC (Bld) 0.6 % Normal . T [facility] Comment on above: Performed By: #### S CAN CBC, CMP, MG, PHOS #### [address] Eosinophils (Bld) [#/Vol] 0.5 10*3/uL High 0.0-0.45 [facility] Comment on above: Performed By: #### S CAN CBC, CMP, MG, PHOS #### [address] Eosinophils/100 WBC (Bld) 4.8 % Normal . [facility] Comment on above: Performed By: #### S CAN CBC, CMP, MG, PHOS #### [address] Erythrocyte distribution width (RBC) [Ratio] 14.5 % Normal 11.9-15.3 [facility] Comment on above: Performed By: #### S CAN CBC, CMP, MG, PHOS #### [address] Hematocrit (Bld) [Volume fraction] 34.6 % Normal 34.0-46.4 [facility] Comment on above: Performed By: #### S CAN CBC, CMP, MG, PHOS #### [address] Hemoglobin (Bld) [Mass/Vol] 11.7 g/dL Low 11.8-15.4 [facility] Comment on above: Performed By: #### S CAN CBC, CMP, MG, PHOS #### [address] Lymphocytes (Bld) [#/Vol] 1.0 10*3/uL Normal 1.00-4.8 [facility] Comment on above: Performed By: #### S CAN CBC, CMP, MG, PHOS #### [address] Lymphocytes/100 WBC (Bld) 10.5 % Normal . [facility] Comment on above: Performed By: #### S CAN CBC, CMP, MG, PHOS #### [address] MCH (RBC) [Entitic mass] 30.5 pg Normal 24.7-34.3 [facility] Comment on above: Performed By: #### S CAN CBC, CMP, MG, PHOS #### [address] MCV (RBC) [Entitic vol] 89.9 fL Normal 80-100 [facility] Comment on above: Performed By: #### S CAN CBC, CMP, MG, PHOS #### [address] Mean Corpuscular HGB Conc 33.9 g/dL Normal 32.0-35.0 [facility] Comment on above: Performed By: #### S CAN CBC, CMP, MG, PHOS #### [address] Monocytes (Bld) [#/Vol] 0.5 10*3/uL Normal 0.0-0.8 [facility] Comment on above: Performed By: #### S CAN CBC, CMP, MG, PHOS #### [address] Monocytes/100 WBC (Bld) 5.7 % Normal . [facility] Comment on above: Performed By: #### S CAN CBC, CMP, MG, PHOS #### [address] Neutrophils (Bld) [#/Vol] 7.3 10*3/uL Normal 1.8-7.7 [facility] Comment on above: Performed By: #### S CAN CBC, CMP, MG, PHOS #### [address] Neutrophils/100 WBC (Bld) 78.4 % Normal . [facility] Comment on above: Performed By: #### S CAN CBC, CMP, MG, PHOS #### [address] NRBC% 0.1 /100{WBC} Normal 0-0.5 [facility] Comment on above: Performed By: #### S CAN CBC, CMP, MG, PHOS #### [address] Platelet Estimate Decreased Normal Normal [facility] Comment on above: Performed By: #### S CAN CBC, CMP, MG, PHOS #### [address] Platelet mean volume (Bld) [Entitic vol] 8.2 fL Normal 6.3-10.7 [facility] Comment on above: Performed By: #### S CAN CBC, CMP, MG, PHOS #### [address] Platelet Morphology Normal Normal Normal [facility] Comment on above: Result Comment: PERF ORMED BY: [place] [address] PATHOLOGIST BRAND ENGINEER TIMA MEYER M.D. Performed By: #### S CAN CBC, CMP, MG, PHOS #### [address] Platelets (Bld) [#/Vol] 90 10*3/uL Low 150-450 [facility] Comment on above: Performed By: #### S CAN CBC, CMP, MG, PHOS #### [address] RBC (Bld) [#/Vol] 3.84 10*6/uL Normal 3.60-5.00 [facility] Comment on above: Performed By: #### S CAN CBC, CMP, MG, PHOS #### [address] RBC morphology finding Nom (Bld) Normal Normal Normal [facility] Comment on above: Performed By: #### S CAN CBC, CMP, MG, PHOS #### [address] WBC (Bld) [#/Vol] 9.3 10*3/uL Normal 3.8-11.6 [facility] Comment on above: Performed By: #### S CAN CBC, CMP, MG, PHOS #### [address] Complete Blood Count Auto Di ffon 05-20-2024 Basophils (Bld) [#/Vol] 0.0 10*3/uL Normal 0.0-0.2 [facility] Comment on above: Result Comment: PERF ORMED BY: [place] [address] PATHOLOGIST BRAND ENGINEER TIMA MEYER M.D. Performed By: #### S CAN CBC, CMP, MG, PHOS #### [address] Basophils/100 WBC (Bld) 0.3 % Normal . [facility] Comment on above: Performed By: #### S CAN CBC, CMP, MG, PHOS #### [address] Eosinophils (Bld) [#/Vol] 0.1 10*3/uL Normal 0.0-0.45 [facility] Comment on above: Performed By: #### S CAN CBC, CMP, MG, PHOS #### [address] Eosinophils/100 WBC (Bld) 0.7 % Normal . [facility] Comment on above: Performed By: #### S CAN CBC, CMP, MG, PHOS #### [address] Erythrocyte distribution width (RBC) [Ratio] 14.3 % Normal 11.9-15.3 [facility] Comment on above: Performed By: #### S CAN CBC, CMP, MG, PHOS #### [address] Hematocrit (Bld) [Volume fraction] 36.5 % Normal 34.0-46.4 [facility] Comment on above: Performed By: #### S CAN CBC, CMP, MG, PHOS #### [address] Hemoglobin (Bld) [Mass/Vol] 12.4 g/dL Normal 11.8-15.4 [facility] Comment on above: Performed By: #### S CAN CBC, CMP, MG, PHOS #### [address] Lymphocytes (Bld) [#/Vol] 0.6 10*3/uL Low 1.00-4.8 [facility] Comment on above: Performed By: #### S CAN CBC, CMP, MG, PHOS #### [address] Lymphocytes/100 WBC (Bld) 4.4 % Normal . [facility] Comment on above: Performed By: #### S CAN CBC, CMP, MG, PHOS #### [address] MCH (RBC) [Entitic mass] 30.6 pg Normal 24.7-34.3 [facility] Comment on above: Performed By: #### S CAN CBC, CMP, MG, PHOS #### [address] MCV (RBC) [Entitic vol] 90.0 fL Normal 80-100 [facility] Comment on above: Performed By: #### S CAN CBC, CMP, MG, PHOS #### [address] Mean Corpuscular HGB Conc 34.0 g/dL Normal 32.0-35.0 [facility] Comment on above: Performed By: #### S CAN CBC, CMP, MG, PHOS #### [address] Monocytes (Bld) [#/Vol] 0.3 10*3/uL Normal 0.0-0.8 [facility] Comment on above: Performed By: #### S CAN CBC, CMP, MG, PHOS #### [address] Monocytes/100 WBC (Bld) 2.7 % Normal . [facility] Comment on above: Performed By: #### S CAN CBC, CMP, MG, PHOS #### [address] Neutrophils (Bld) [#/Vol] 12.1 10*3/uL High 1.8-7.7 [facility] Comment on above: Performed By: #### S CAN CBC, CMP, MG, PHOS #### [address] Neutrophils/100 WBC (Bld) 91.9 % Normal . [facility] Comment on above: Performed By: #### S CAN CBC, CMP, MG, PHOS #### [address] NRBC% 0.0 /100{WBC} Normal 0-0.5 [facility] Comment on above: Performed By: #### S CAN CBC, CMP, MG, PHOS #### [address] Platelet mean volume (Bld) [Entitic vol] 7.9 fL Normal 6.3-10.7 [facility] Comment on above: Performed By: #### S CAN CBC, CMP, MG, PHOS #### [address] Platelets (Bld) [#/Vol] 104 10*3/uL Signific ant change down 150-450 [facility] Comment on above: Performed By: #### S CAN CBC, CMP, MG, PHOS #### [address] RBC (Bld) [#/Vol] 4.05 10*6/uL Normal 3.60-5.00 [facility] Comment on above: Performed By: #### S CAN CBC, CMP, MG, PHOS #### [address] WBC (Bld) [#/Vol] 13.1 10*3/uL High 3.8-11.6 [facility] Comment on above: Performed By: #### S CAN CBC, CMP, MG, PHOS #### [facility] [address] Comprehensive Metabolic Pane dwayne 05-20-2024 Albumin [Mass/Vol] 2.6 g/dL Low 3.5-5.7 [facility] Comment on above: Performed By: #### S CAN CBC, CMP, MG, PHOS #### [address] Albumin/Globulin [Mass ratio] 0.8 {ratio} Normal [facility] Comment on above: Performed By: #### S CAN CBC, CMP, MG, PHOS #### [address] ALP [Catalytic activity/Vol] 103 U/L Normal 34-104 [facility] Comment on above: Performed By: #### S CAN CBC, CMP, MG, PHOS #### [address] ALT [Catalytic activity/Vol] 13 U/L Normal 7-52 [facility] Comment on above: Performed By: #### S CAN CBC, CMP, MG, PHOS #### [address] Anion gap [Moles/Vol] 9.5 mmol/L Normal 6.0-15.0 [facility] Comment on above: Performed By: #### S CAN CBC, CMP, MG, PHOS #### [address] AST [Catalytic activity/Vol] 15 U/L Normal 13-39 [facility] Comment on above: Performed By: #### S CAN CBC, CMP, MG, PHOS #### [address] Bilirubin [Mass/Vol] 0.6 mg/dL Normal 0.3-1.0 [facility] Comment on above: Performed By: #### S CAN CBC, CMP, MG, PHOS #### [address] Calcium [Mass/Vol] 7.9 mg/dL Low 8.6-10.3 [facility] Comment on above: Performed By: #### S CAN CBC, CMP, MG, PHOS #### [address] Chloride [Moles/Vol] 106 mmol/L Normal 98-107 [facility] Comment on above: Performed By: #### S CAN CBC, CMP, MG, PHOS #### [address] CO2 [Moles/Vol] 24.3 mmol/L Normal 21.0-31.0 [facility] Comment on above: Performed By: #### S CAN CBC, CMP, MG, PHOS #### [address] Creatinine [Mass/Vol] 1.23 mg/dL High 0.60-1.20 [facility] Comment on above: Performed By: #### S CAN CBC, CMP, MG, PHOS #### [address] Creatinine Clr Calc Pharmacy 61.10 Normal [facility] Comment on above: Performed By: #### S CAN CBC, CMP, MG, PHOS #### [address] GFR/1.73 sq M.predicted MDRD (S/P/Bld) [Vol rate/Area] 49.378 mL/min/{1.73_m2} Normal [facility] Comment on above: Performed By: #### S CAN CBC, CMP, MG, PHOS #### [address] Globulin (S) [Mass/Vol] 3.3 g/dL Normal T [facility] Comment on above: Performed By: #### S CAN CBC, CMP, MG, PHOS #### [address] Glucose [Mass/Vol] 133 mg/dL High 70-100 [facility] Comment on above: Result Comment: [facility] Glucose Reference Range is dependent on time and content of last meal. Glucose of more than 200 mg/dL in a nonstressed, ambulatory subject supports the diagnosis of Diabetes Mellitus. ADA recommended reference range Performed By: #### S CAN CBC, CMP, MG, PHOS #### [address] Potassium [Moles/Vol] 3.8 mmol/L Normal 3.5-5.1 [facility] Comment on above: Performed By: #### S CAN CBC, CMP, MG, PHOS #### [address] Protein [Mass/Vol] 5.9 g/dL Significant change down 6.4-8.9 [facility] Comment on above: Performed By: #### S CAN CBC, CMP, MG, PHOS #### [address] Sodium [Moles/Vol] 136 mmol/L Normal 136-145 [facility] Comment on above: Performed By: #### S CAN CBC, CMP, MG, PHOS #### [address] Urea nitrogen [Mass/Vol] 22 mg/dL Normal 7-25 [facility] Comment on above: Performed By: #### S CAN CBC, CMP, MG, PHOS #### [address] Magnesiumon 05-20-2024 Magnesium [Mass/Vol] 1.8 mg/dL Low 1.9-2.7 [facility] Comment on above: Result Comment: PERF ORMED BY: [place] [address] PATHOLOGIST BRAND ENGINEER TIMA MEYER M.D. Performed By: #### S CAN CBC, CMP, MG, PHOS #### [address] Phosphoruson 05-20-2024 Phosphate [Mass/Vol] 2.3 mg/dL Low 2.5-4.5 [facility] Comment on above: Performed By: #### S CAN CBC, CMP, MG, PHOS #### [facility] [address] [place] [address] [place] Bacterial blood cultureOrder ed By: Americo Maldonado on 05-19-2024 Bacteria identified Cx Nom (Bld) Abnormal [facility] Bacteria identified Cx Nom (Bld) Abnormal [facility] Basic Metabolic Panelon 05-02 Anion gap [Moles/Vol] 16.4 mmol/L High 6.0-15.0 [facility] Comment on above: Performed By: #### S CAN CBC, CMP, MG, PHOS #### [facility] [address] Calcium [Mass/Vol] 7.8 mg/dL Low 8.6-10.3 [facility] Comment on above: Performed By: #### S CAN CBC, CMP, MG, PHOS #### [facility] [address] Chloride [Moles/Vol] 103 mmol/L Normal 98-107 [facility] Comment on above: Performed By: #### S CAN CBC, CMP, MG, PHOS #### [facility] [address] CO2 [Moles/Vol] 21.0 mmol/L Normal 21.0-31.0 [facility] Comment on above: Performed By: #### S CAN CBC, CMP, MG, PHOS #### [facility] [address] [place] [address] [place] Creatinine [Mass/Vol] 1.62 mg/dL Significan t change up 0.60-1.20 [facility] Comment on above: Performed By: #### S CAN CBC, CMP, MG, PHOS #### [facility] [address] [place] [address] [place] Creatinine Clr Calc Pharmacy 46.12 Normal [facility] Comment on above: Performed By: #### S CAN CBC, CMP, MG, PHOS #### [place] [address] [place] GFR/1.73 sq M.predicted MDRD (S/P/Bld) [Vol rate/Area] 35.482 mL/min/{1.73_m2} Normal [facility] Comment on above: Performed By: #### S CAN CBC, CMP, MG, PHOS #### [address] Glucose [Mass/Vol] 96 mg/dL Normal 70-100 [facility] Comment on above: Result Comment: [place] Glucose Reference Range is dependent on time and content of last meal. Glucose of more than 200 mg/dL in a nonstressed, ambulatory subject supports the diagnosis of Diabetes Mellitus. ADA recommended reference range Performed By: #### S CAN CBC, CMP, MG, PHOS #### [address] Potassium [Moles/Vol] 4.4 mmol/L Normal 3.5-5.1 [facility] Comment on above: Result Comment: Hemo lysis is present at a level that could interfere with the result. Contact lab if redraw is required Performed By: #### S CAN CBC, CMP, MG, PHOS #### [address] Sodium [Moles/Vol] 136 mmol/L Normal 136-145 [facility] [facility] Comment on above: Performed By: #### S CAN CBC, CMP, MG, PHOS #### [address] Urea nitrogen [Mass/Vol] 22 mg/dL Normal 7-25 [facility] Comment on above: Performed By: #### S CAN CBC, CMP, MG, PHOS #### [address] Blood Cultureon 05-19-2024 Bacteria identified Cx Nom (Bld) Results called at 1811 on 05/22/24 Gram Stain Gram Negative Bacilli ORGANISM: Klebsiella oxytoca (O:KLEOXY) Organism Comments For DESMOND Refer to Final Report of Blood Culture Collected Date 05/18/24 PERFORMED BY: [place] [address] PATHOLOGIST BRAND ENGINEER TIMA MEYER M.D. Normal [facility] Comment on above: Performed By: #### S CAN CBC, CMP, MG, PHOS #### [address] Bacteria identified Cx Nom (Bld) Gram stain results called at 1544 on 05/21/24 Gram Stain Gram Negative Bacilli ORGANISM: Klebsiella oxytoca (O:KLEOXY) Organism Comments For DESMOND Refer to Final Report of Blood Culture Collected Date 05/18/24 PERFORMED BY: [place] [address] PATHOLOGIST BRAND ENGINEER TIMA MEYER M.D. Normal [facility] Comment on above: Performed By: #### S CAN CBC, CMP, MG, PHOS #### [address] Complete Blood Count Auto Di ffon 05-19-2024 Basophils (Bld) [#/Vol] 0.0 10*3/uL Normal 0.0-0.2 [facility] Comment on above: Result Comment: PERF ORMED BY: [place] [address] PATHOLOGIST BRAND ENGINEER TIMA MEYER M.D. Performed By: #### S CAN CBC, CMP, MG, PHOS #### [address] Basophils/100 WBC (Bld) 0.2 % Normal . [facility] Comment on above: Performed By: #### S CAN CBC, CMP, MG, PHOS #### [address] Eosinophils (Bld) [#/Vol] 0.0 10*3/uL Normal 0.0-0.45 [facility] Comment on above: Performed By: #### S CAN CBC, CMP, MG, PHOS #### [address] Eosinophils/100 WBC (Bld) 0.1 % Normal . [facility] Comment on above: Performed By: #### S CAN CBC, CMP, MG, PHOS #### [address] Erythrocyte distribution width (RBC) [Ratio] 14.4 % Normal 11.9-15.3 [facility] Comment on above: Performed By: #### S CAN CBC, CMP, MG, PHOS #### [address] Hematocrit (Bld) [Volume fraction] 41.6 % Normal 34.0-46.4 [facility] Comment on above: Performed By: #### S CAN CBC, CMP, MG, PHOS #### [address] Hemoglobin (Bld) [Mass/Vol] 14.1 g/dL Normal 11.8-15.4 [facility] Comment on above: Performed By: #### S CAN CBC, CMP, MG, PHOS #### [address] Lymphocytes (Bld) [#/Vol] 0.6 10*3/uL Low 1.00-4.8 [facility] Comment on above: Performed By: #### S CAN CBC, CMP, MG, PHOS #### [address] Lymphocytes/100 WBC (Bld) 3.1 % Normal . [facility] Comment on above: Performed By: #### S CAN CBC, CMP, MG, PHOS #### [address] MCH (RBC) [Entitic mass] 30.9 pg Normal 24.7-34.3 [facility] Comment on above: Performed By: #### S CAN CBC, CMP, MG, PHOS #### [address] MCV (RBC) [Entitic vol] 90.9 fL Normal 80-100 [facility] Comment on above: Performed By: #### S CAN CBC, CMP, MG, PHOS #### [address] Mean Corpuscular HGB Conc 34.0 g/dL Normal 32.0-35.0 [facility] Comment on above: Performed By: #### S CAN CBC, CMP, MG, PHOS #### [address] Monocytes (Bld) [#/Vol] 0.7 10*3/uL Normal 0.0-0.8 [facility] Comment on above: Performed By: #### S CAN CBC, CMP, MG, PHOS #### [address] Monocytes/100 WBC (Bld) 3.3 % Normal . [facility] Comment on above: Performed By: #### S CAN CBC, CMP, MG, PHOS #### [address] Neutrophils (Bld) [#/Vol] 19.4 10*3/uL High 1.8-7.7 [facility] Comment on above: Performed By: #### S CAN CBC, CMP, MG, PHOS #### [address] Neutrophils/100 WBC (Bld) 93.3 % Normal . [facility] Comment on above: Performed By: #### S CAN CBC, CMP, MG, PHOS #### [address] NRBC% 0.1 /100{WBC} Normal 0-0.5 [facility] Comment on above: Performed By: #### S CAN CBC, CMP, MG, PHOS #### [address] Platelet mean volume (Bld) [Entitic vol] 7.6 fL Normal 6.3-10.7 [facility] Comment on above: Performed By: #### S CAN CBC, CMP, MG, PHOS #### [address] Platelets (Bld) [#/Vol] 154 10*3/uL Signific ant change down 150-450 [facility] Comment on above: Performed By: #### S CAN CBC, CMP, MG, PHOS #### [facility] [address] RBC (Bld) [#/Vol] 4.58 10*6/uL Normal 3.60-5.00 [facility] Comment on above: Performed By: #### S CAN CBC, CMP, MG, PHOS #### [facility] [address] [place] [id number] [facility] WBC (Bld) [#/Vol] 20.8 10*3/uL High 3.8-11.6 [facility] Comment on above: Performed By: #### S CAN CBC, CMP, MG, PHOS #### [facility] [address] ECG 12 lead ECGon 05-19-2024 [address] [facility] [place] [address] [place] [address] Electrocardiograph Report Signed Patient: Alessandra Hardy MR#: [id number] : 1960 Acct:[id number] Age/Sex: 64 / F ADM Date: 05/18/24 Loc: Room: [address] [place] [address] Type: ADM IN Attending Dr: Luis Santoro MD Ordering Provider: John Frank DO Date of Service: 05/19/24 ECG/ECG 12 lead ECG: tachycardia Copies to: Test Reason : Blood Pressure : */* mmHG Vent. Rate : 122 BPM Atrial Rate : 122 BPM P-R Int : 132 ms QRS Dur : 88 ms QT Int : 330 ms P-R-T Axes : 12 86 3 degrees QTcB Int : 470 ms Sinus tachycardia Low voltage QRS Incomplete right bundle branch block Abnormal ECG When compared with ECG of 18-May-2024 16:56, No significant change was found Confirmed by [facility] ([id number]) on 05/19/2024 5:24:40 PM Referred By: Electronically Signed By: JASKARAN VAZQUEZ MD FACC Transcribed By: MUS Signed By Jaskaran Vazquez MD, FACC 05/19/24 1724 Normal [facility] Magnesiumon 05-19-2024 Magnesium [Mass/Vol] 1.5 mg/dL Low 1.9-2.7 [facility] Comment on above: Result Comment: PERF ORMED BY: [place] [address] PATHOLOGIST BRAND ENGINEER TIMA MEYER M.D. Performed By: #### S CAN CBC, CMP, MG, PHOS #### [facility] [address] [place] [address] [place] Alanine aminotransferase [En zymatic activity/volume] in Serum or PlasmaOrdered By: Gely Story on 05-18-2024 ALT [Catalytic activity/Vol] 15 U/L Normal 7-52 [facility] Comment on above: Performed By: #### S CAN CBC, CMP, MG, PHOS #### [address] Albumin [Mass/volume] in Ser um or Plasma by Bromocresol green (BCG) dye binding methoOrdered By: Gely Story on 05-18-2024 Albumin BCG dye [Mass/Vol] 3.5 g/dL 3.5-5.7 [facility] Alkaline phosphatase [Enzyma tic activity/volume] in Serum or PlasmaOrdered By: Gely Story on 05-18-2024 ALP [Catalytic activity/Vol] 106 U/L High 34-104 [facility] Comment on above: Performed By: #### S CAN CBC, CMP, MG, PHOS #### [facility] [address] [place] [address] Appearance of UrineOrdered B y: Gely Story on 05-18-2024 Appearance (U) Urine appearance Abnormal Clear [facility] Aspartate aminotransferase [ Enzymatic activity/volume] in Serum or PlasmaOrdered By: Gely Story on 05-18-2024 AST [Catalytic activity/Vol] 24 U/L Normal 13-39 [facility] Comment on above: Performed By: #### S CAN CBC, CMP, MG, PHOS #### [facility] [address] [place] [address] Automated basophil %Ordered By: Gely Story on 05-18-2024 Basophils/100 WBC (Bld) 0.1 % Normal . [facility] Comment on above: Performed By: #### S CAN CBC, CMP, MG, PHOS #### [address] Automated basophil countOrde red By: Gely Story on 05-18-2024 Basophils (Bld) [#/Vol] 0.0 10*3/uL Normal 0.0-0.2 [facility] Comment on above: Result Comment: PERF ORMED BY: [place] [address] PATHOLOGIST BRAND ENGINEER TIMA MEYER M.D. Performed By: #### S CAN CBC, CMP, MG, PHOS #### [address] Automated blood monocyte cou ntOrdered By: Gely Story on 05-18-2024 Monocytes (Bld) [#/Vol] 0.9 10*3/uL High 0.0-0.8 [facility] Comment on above: Performed By: #### S CAN CBC, CMP, MG, PHOS #### [address] Automated eosinophil %Ordere d By: Gely Story on 05-18-2024 Eosinophils/100 WBC (Bld) 0.0 % Normal . [facility] Comment on above: Performed By: #### S CAN CBC, CMP, MG, PHOS #### [address] Automated eosinophil countOr dered By: Gely Story on 05-18-2024 Eosinophils (Bld) [#/Vol] 0.0 10*3/uL Normal 0.0-0.45 [facility] Comment on above: Performed By: #### S CAN CBC, CMP, MG, PHOS #### [address] Automated monocyte %Ordered By: Gely Story on 05-18-2024 Monocytes/100 WBC (Bld) 3.0 % Normal . [facility] Comment on above: Performed By: #### S CAN CBC, CMP, MG, PHOS #### [facility] [address] Automated neutrophil %Ordere d By: Gely Story on 05-18-2024 Neutrophils/100 WBC (Bld) 95.1 % Normal . [facility] Comment on above: Performed By: #### S CAN CBC, CMP, MG, PHOS #### [facility] [address] [place] [address] BNP ser/plasOrdered By: Micheal Story on 05-18-2024 Natriuretic peptide B (Bld) [Mass/Vol] 149.0 pg/mL High 5-100 [facility] Comment on above: Result Comment: PERF ORMED BY: [place] [address] PATHOLOGIST BRAND ENGINEER TIMA MEYER M.D. Performed By: #### S CAN CBC, CMP, MG, PHOS #### [address] Bacteria [Presence] in Urine by AutomatedOrdered By: Gely Story on 05-18-2024 Bacteria Auto Ql (U) 3+ [HPF] High None Seen [facility] Bacteria Auto Ql (U) Bacteria [Presence] in Urine by Automated High None Seen [facility] Bacterial blood cultureOrder ed By: Gely Story on 05-18-2024 Bacteria identified Cx Nom (Bld) Abnormal [facility] Bacteria identified Cx Nom (Bld) Abnormal [facility] Bacteria identified Cx Nom (Bld) Abnormal [facility] Bacteria identified Cx Nom (Bld) Abnormal [facility] Bacteria identified Cx Nom (Bld) Escherichia coli (ESBL) Abnormal [facility] Basic Metabolic Panelon 05-02 Creatinine Clr Calc Pharmacy 28.27 Normal [facility] Comment on above: Performed By: #### S CAN CBC, CMP, MG, PHOS #### [facility] [address] [place] [address] GFR/1.73 sq M.predicted MDRD (S/P/Bld) [Vol rate/Area] 21.812 mL/min/{1.73_m2} Normal [facility] Comment on above: Performed By: #### S CAN CBC, CMP, MG, PHOS #### [facility] [address] Bilirubin Test strip Ql (U)O rdered By: Gely Story on 05-18-2024 Bilirubin Ql (U) Negative Negative [facility] Bilirubin Ql (U) Bilirubin.total [Presence] in Urine by Test strip Negative [facility] Bilirubin.direct [Mass/volum e] in Serum or PlasmaOrdered By: Gely Story on 05-18-2024 Bilirubin.direct [Mass/Vol] 0.30 mg/dL High 0.03-0.18 [facility] Bilirubin.direct [Mass/Vol] Bilirubin.direct [Mass/volume] in Serum or Plasma High 0.03-0.18 [facility] Bilirubin.total [Mass/volume ] in Serum or PlasmaOrdered By: Gely Story on 05-18-2024 Bilirubin [Mass/Vol] 0.9 mg/dL Normal 0.3-1.0 [facility] Comment on above: Performed By: #### S CAN CBC, CMP, MG, PHOS #### [facility] [address] Blood Cultureon 05-18-2024 Bacteria identified Cx Nom (Bld) Results called at 0615 on 05/19/24. ESBL results called at 0918 on 05/21/24 Gram Stain Gram Negative Bacilli ORGANISM: Klebsiella oxytoca (O:KLEOXY) Organism Comments For DESMOND Refer to Final Report of Blood Culture Collected Date 05/18/24 ORGANISM: Escherichia coli (ESBL) (O:ESCCOLESBL) Organism Comments For DESMOND Refer to Final Report of Blood Culture Collected Date 05/18/24 PERFORMED BY: [place] [address] PATHOLOGIST BRAND ENGINEER TIMA MEYER M.D. Normal [facility] Comment on above: Performed By: #### S CAN CBC, CMP, MG, PHOS #### [address] Bacteria identified Cx Nom (Bld) Gram stain results called at 0606 on 05/19/24 Results called at 0441 on 05/19/24 ESBL results called at 0918 on 05/21/24 Gram Stain Gram Negative Bacilli ORGANISM: Klebsiella oxytoca (O:KLEOXY) ORGANISM: Escherichia coli (ESBL) (O:ESCCOLESBL) Aerobic DESMOND Charge (NMIC56) SUSCEPTIBILITY ORGANISM: O:KLEOXY ANTIBIOTIC INTERPRETATION DESMOND Amikacin S <16 Amoxacillin/K Clavulanate S <8 Ampicillin/Sulbactam S 88/4 Aztreonam S <4 Cefazolin S 8 Cefepime S <2 Ceftazidime S <1 Ceftazidime/Avibactam S <4 Ceftolozane/Tazobactam S <2 Ceftriaxone S <1 Cefuroxime S <4 Ciprofloxacin S <0.25 Ertapenem S <0.5 Gentamicin S <2 Levofloxacin S <0.5 Meropenem S <1 Meropenem/Vaborbactam S <2 Piperacillin/Tazobactam S <8 Tetracycline S <4 Tobramycin S <2 Trimethoprim/Sulfamethoxa zole S <0.5 Aerobic DESMOND Charge (NMIC56) SUSCEPTIBILITY ORGANISM: O:ESCCOLESBL ANTIBIOTIC INTERPRETATION DESMOND Amikacin S <16 Amoxacillin/K Clavulanate S <8 Ampicillin R* >16 Ampicillin/Sulbactam S 88/4 Aztreonam ESBL >16 Cefazolin R* >16 Cefepime R* 16 Ceftazidime ESBL 16 Ceftazidime/Avibactam S <4 Ceftolozane/Tazobactam S <2 Ceftriaxone ESBL >32 Cefuroxime R* >16 Ciprofloxacin R >2 Ertapenem S <0.5 Gentamicin S <2 Levofloxacin R >4 Meropenem S <1 Meropenem/Vaborbactam S <2 Tetracycline S <4 Tobramycin S <2 Trimethoprim/Sulfamethoxa zole S <0.5 Gram stain results called at 0606 on 05/19/24 Results called at 0441 on 05/19/24 ESBL results called at 0918 on 05/21/24 Staphylococcus aureus DNA [Presence] by LISA with non-probe detection in Positive blood culture Not detected Bacteroides fragilis DNA [Presence] by LISA with non-probe detection in Positive blood culture Not detected Earnestine auris DNA [Presence] by LISA with non-probe detection in Positive blood culture Not detected Earnestine albicans DNA [Presence] by LISA with non-probe detection in Positive blood culture Not detected Acinetobacter calcoaceticus-baumannii complex DNA [Presence] by LISA with non-probe detection in Positive blood culture Not detected Cryptococcus neoformans or gattii 9002 Not detected Cephalosporin resistance blaCTX-M gene [Presence] by Molecular method Detected Escherichia coli Detected Enterobacterales DNA [Presence] by LISA with non-probe detection in Positive blood culture Detected Enterobacter cloacae complex DNA [Presence] by LISA with non-probe detection in Positive blood culture Not detected Staphylococcus epidermidis DNA [Presence] by LISA with non-probe detection in Positive blood culture Not detected Enterococcus faecalis DNA [Presence] by LISA with non-probe detection in Positive blood culture Not detected Enterococcus faecium DNA [Presence] by LISA with non-probe detection in Positive blood culture Not detected Earnestine glabrata DNA [Presence] by LISA with non-probe detection in Positive blood culture Not detected Haemophilus influenzae (reported as H flu) Not detected Carbapenem resistance blaIMP gene [Presence] by Molecular method Not detected Klebsiella aerogenes DNA [Presence] by LISA with non-probe detection in Positive blood culture Not detected Klebsiella pneumoniae+Klebsiella variicola+Klebsiella quasipneumoniae DNA [Presence] by LISA with non-probe detection in Positive blood culture Not detected Klebsiella oxytoca DNA [Presence] by LISA with non-probe detection in Positive blood culture Detected Carbapenem resistance blaKPC gene [Presence] by Molecular method Not detected Earnestine krusei DNA [Presence] by LISA with non-probe detection in Positive blood culture Not detected Listeria monocytogenes (reported as listeriosis) Not detected Staphylococcus lugdunensis DNA [Presence] by LISA with non-probe detection in Positive blood culture Not detected Methicillin resistance mecA+mecC genes+SCCmec+OrfX junction [Presence] by Molecular method Not Applicable Carbapenem resistance blaNDM gene [Presence] by Molecular method Not detected Neisseria meningitidis - reported as meningococcal disease Not detected Carbapenem resistance vinod OXA-48-like gene [Presence] by Molecular method Not detected Earnestine parapsilosis DNA [Presence] by LISA with non-probe detection in Positive blood culture Not detected Streptococcus pneumoniae - reported at ISP Not detected Proteus sp DNA [Presence] by LIAS with non-probe detection in Positive blood culture Not detected Pseudomonas aeruginosa DNA [Presence] by LISA with non-probe detection in Positive blood culture Not detected Salmonella sp DNA [Presence] by LISA with non-probe detection in Positive blood culture Not detected Serratia marcescens DNA [Presence] by LISA with non-probe detection in Positive blood culture Not detected Staphylococcus sp DNA [Presence] by LISA with non-probe detection in Positive bloo (more content not included)... Normal [facility] Comment on above: Performed By: #### S CAN CBC, CMP, MG, PHOS #### [facility] [address] [place] [address] COVID CepheidOrdered By: Otis Story on 05-18-2024 SARS-CoV-2 (COVID-19) Ab IA Ql Negative Negative [facility] Comment on above: This is a duplicate Cepheid Xpert Xpress CoV-2/Flu/RSV Plus RNA by RT-PCR result to be used for statistical tracking purpose only. SARS-CoV-2 (COVID-19) RNA LISA+probe Ql (Unsp spec) [facility] COVID Cepheid NegativeOrdere d By: Gely Story on 05-18-2024 SARS-CoV-2 (COVID-19) Ab IA Ql COVID Cepheid Negative [facility] Comment on above: This is a duplicate Cepheid Xpert Xpress CoV-2/Flu/RSV Plus RNA by RT-PCR result to be used for statistical tracking purpose only. COVID-19 / Flu A/B / RSV PCR on 05-18-2024 SARS-CoV-2 (COVID-19) RNA LISA+probe Ql (Unsp spec) COVID-19 Cepheid Result Negative for SARS-CoV-2 RNA by RT-PCR Flu A Cepheid Result Negative for Flu A RNA by RT-PCR Flu B Cepheid Result Negative for Flu B RNA by RT-PCR RSV Cepheid Result Negative for RSV RNA by RT-PCR COVID19 Blank Space ---- Reference: Negative COVID19 Blank Space ---- Cepheid Disclaimer The Cepheid Xpert Xpress CoV-2/Flu/RSV Plus has Cepheid Disclaimer not been FDA cleared or approved; this test has Cepheid Disclaimer been authorized by FDA under an EUA for use by Cepheid Disclaimer authorized laboratories; this test has been Cepheid Disclaimer authorized only for the simultaneous qualitative Cepheid Disclaimer detection and differentiation of nucleic acids from Cepheid Disclaimer SARS-CoV-2, influenza A, influenza B, and Cepheid Disclaimer respiratory syncytial virus (RSV), and not for any Cepheid Disclaimer other viruses or pathogens; and this test is only Cepheid Disclaimer authorized for the duration of the declaration that Cepheid Disclaimer circumstances exist justifying the authorization of Cepheid Disclaimer emergency use of in vitro diagnostic tests for Cepheid Disclaimer detection and/or diagnosis of COVID-19 under Cepheid Disclaimer Section 564(b)(1) of the Act, 21 U.S.C. 360bbb- Cepheid Disclaimer 3(b)(1), unless the authorization is terminated or Cepheid Disclaimer revoked sooner. PERFORMED BY: [place] [address] PATHOLOGIST BRAND ENGINEER TIMA MEYER M.D. Normal [facility] Comment on above: Performed By: #### H S TROP #### [address] abdomen pelvis w andie CT abdomen pelvis w [facility] [place] [address] [place] [address] CT Scan Report Signed Patient: Alessandra Hardy MR#: [id number] : 1960 Acct:[id number] Age/Sex: 64 / F ADM Date: 05/18/24 Loc: ER Room: Type: [facility] ER Attending Dr: Copies to: Gely Story MD Ordering Provider: Gely Story MD Date of Service: 05/18/24 CT/CT angio chest PE protocol: r/o pe, elevated dimer, tachy ([id number]) CT/CT abdomen pelvis w con: R sided tenderness, septic, likely uti CT ANGIOGRAM OF THE CHEST, PULMONARY EMBOLISM PROTOCOL: CLINICAL INFORMATION: Elevated d-dimer tachycardia right-sided tenderness. Confusion. COMPARISON: Chest performed earlier today. TECHNIQUE: Following intravenous injection of contrast CT scans of the chest were obtained using pulmonary embolism protocol. Coronal and sagittal reconstructed images, as well as volume rendered CT pulmonary angiographic images were also submitted.The CT exam was performed using one or more of the following dose reduction techniques: Automated exposure control, adjustment of the MA and/or Kv according to patient size, or use of the iterative reconstruction technique. FINDINGS: Pulmonary Vasculature: All findings of abnormal for the evaluation of segmental and subsegmental pulmonary embolism. No central pulmonary embolism is noted. Pulmonary trunk appears nondilated. Mediastinum : Thoracic aorta is normal in caliber. No pericardial effusion. No lymphadenopathy. The esophagus is grossly unremarkable. Lungs: Elevation of the right hemidiaphragm with right basilar atelectasis. Left basilar atelectasis/scarring. No consolidation pneumothorax or pleural effusion. Upper abdomen: Please see CT abdomen and pelvis report. Soft tissue/bones: Soft tissues surrounding the chest wall demonstrate no acute findings. Osseous structures demonstrate degenerative change. Multilevel cement augmentation involving the thoracic spine. CT/CT angio chest PE protocol IMPRESSION: NO ACUTE CARDIOPULMONARY PROCESS. NO CT EVIDENCE OF CENTRAL PULMONARY EMBOLISM. CT ABDOMEN AND PELVIS WITH INTRAVENOUS CONTRAST: COMPARISON: None TECHNIQUE: Spiral images were obtained through the abdomen and pelvis following the administration of intravenous contrast. This CT exam was performed using one or more following dose reduction techniques: Automated exposure control, adjustment of the mA and/or kV according to patient size, or use of iterative reconstruction technique. FINDINGS: Organs:Hepatic steatosis. Gallbladder spleen pancreas and adrenal glands appear unremarkable. Bilateral perinephric and periureteral fat stranding with mild hydronephrosis and urothelial thickening/enhancement.[T here is heterogeneous enhancement of the kidneys particularly involving the superior pole of the right kidney. Bilateral nephrolithiasis, largest stone measuring 3 mm involving the inferior pole of the right kidney. Abdominal aorta appears normal in caliber. GI: Stomach is grossly unremarkable. Small bowel appears nondilated. No acute colonic abnormality.[ Pelvis:[Poole catheter is in place. There is associated wall thickening and inflammatory changes involving the urinary bladder suspicious for cystitis. Uterus is grossly unremarkable. No adnexal mass.] Peritoneum/Retroperitoneu m:No free air, free fluid or lymphadenopathy.[ Abd wall/Bones:Abdominal wall demonstrates no acute findings. Osseous structures demonstrate degenerative change. Partially visualized right hip hardware.[ IMPRESSION: Bilateral perinephric and periureteral fat stranding with mild hydronephrosis heterogenous enhancement and urothelial thickening/enhancement. There also appears to be cystitis type changes with Poole catheter in place. Developing pyelonephritis cannot BE excluded. Correlation with urinalysis is recommended. Impression dictated by: Ihsan Rosales Jr., D.OFarhana05/18/2024 7:31 PM Dictation Location: [place] [address] Transcribed By: [facility] 05/18/241930 Dictated By: Ihsan Rosales Jr, DO 05/18/241922 Signed By: 05/18/241930 Normal [facility] Calcium [Mass/volume] in Ser um or PlasmaOrdered By: Gely Story on 05-18-2024 Calcium [Mass/Vol] 9.1 mg/dL Normal 8.6-10.[address] [facility] Comment on above: Performed By: #### S CAN CBC, CMP, MG, PHOS #### [facility] [address] [place] [id number] [facility] Carbon dioxide, total [Moles /volume] in Serum or PlasmaOrdered By: Gely Story on 05-18-2024 CO2 [Moles/Vol] 19.3 mmol/L Low 21.0-31.0 [facility] Comment on above: Performed By: #### S CAN CBC, CMP, MG, PHOS #### [facility] [address] [place] [address] [facility] Cepheid COVID PCR Negativeon 05-18-2024 SARS-CoV-2 (COVID-19) RNA LISA+probe Ql (Unsp spec) Negative Normal Negative [facility] Comment on above: Result Comment: This is a duplicate CepINNOBIid Xpert Xpress CoV-2/Flu/RSV Plus RNA by RT-PCR result to be used for statistical tracking purpose only. PERFORMED BY: [place] [address] PATHOLOGIST BRAND ENGINEER TIMA MEYER M.D. Performed By: #### H S TROP #### [address] Chloride [Moles/volume] in S black or PlasmaOrdered By: Gely Story on 05-18-2024 Chloride [Moles/Vol] 103 mmol/L Normal 98-107 [facility] Comment on above: Performed By: #### S CAN CBC, CMP, MG, PHOS #### [place] [address] [place] Color Auto (U)Ordered By: Carter Story on 05-18-2024 Color (U) Color of Urine by Auto Abnormal Yellow [facility] Color of Urine by AutoOrdere d By: Gely Story on 05-18-2024 Color (U) Light-orange Critically abnormal Yellow [facility] Comment on above: Order Comment: Name Collection Type:: Clean-Voided Midstream Performed By: #### A DDONUAPLUS, CUU #### [address] Complete Blood Count Auto Di ffon 05-18-2024 Mean Corpuscular HGB Conc 33.0 g/dL Normal 32.0-35.0 [facility] Comment on above: Performed By: #### S CAN CBC, CMP, MG, PHOS #### [place] [address] [place] Monocytes/100 WBC (Bld) 30.71 % High 0.00-20.00 [facility] Comment on above: Result Comment: For adults in ED, MDW > 20.0 may be associated with a higher risk of sepsis during the first 12 hrs of hospital admission Performed By: #### S CAN CBC, CMP, MG, PHOS #### [facility] [address] NRBC% 0.3 /100{WBC} Normal 0-0.5 [facility] Comment on above: Performed By: #### S CAN CBC, CMP, MG, PHOS #### [facility] [address] [place] [id number] [facility] Creatine kinase [Enzymatic a ctivity/volume] in Serum or PlasmaOrdered By: Gely Story on 05-18-2024 CK [Catalytic activity/Vol] 46 U/L Normal [facility] Comment on above: Performed By: #### S CAN CBC, CMP, MG, PHOS #### [facility] [address] CK [Catalytic activity/Vol] Creatine kinase [Enzymatic activity/volume] in Serum or Plasma [facility] Creatinine [Mass/volume] in Serum or PlasmaOrdered By: Gely Story on 05-18-2024 Creatinine [Mass/Vol] 2.43 mg/dL High 0.60-1.20 [facility] Comment on above: Performed By: #### S CAN CBC, CMP, MG, PHOS #### [facility] [address] D-Dimer High Sensitivityon 1 D-Dimer High Sensitivity 1172 ng/mL High 0-243 [facility] Comment on above: Result Comment: The reference range for D-dimer is <243 ng/mL D-dimer units. D-dimer results must be used in conjunction with a clinical pretest probability (PTP) assessment model for deep vein thrombosis (DVT) and pulmonary embolism (PE). Results <230 ng/mL d-dimer units can be used as a negative predictor in patients with low or moderate probability for DVT/PE. Results above the exclusion threshold of 230 ng/ml D-dimer units for DVT/PE may indicate the need for further diagnostic testing. D-Dimer can be increased in hospitalized patients due to co-morbid conditions. A hematocrit value greater than 55% may lead to inaccurate results in coagulation testing. Patients having hematocrit values >55% require a special collection tube for coagulation studies. Please contact the laboratory at [phone] for redraw instructions. PERFORMED BY: [place] [address] PATHOLOGIST BRAND ENGINEER TIMA MEYER M.D. Performed By: #### S CAN CBC, CMP, MG, PHOS #### [address] Dipstick and Microscopicon 1 0 Bacteria,Urine 3+ High None Seen [facility] Comment on above: Order Comment: Name Collection Type:: Clean-Voided Midstream Performed By: #### A DDONUAPLUS, CUU #### [place] [address] [place] Bilirubin,Urine Negative Normal Negative [facility] Comment on above: Order Comment: Name Collection Type:: Clean-Voided Midstream Performed By: #### A DDONUAPLUS, CUU #### [address] Glucose Ql (U) Normal Normal Normal [facility] Comment on above: Order Comment: Name Collection Type:: Clean-Voided Midstream Performed By: #### A DDONUAPLUS, CUU #### [place] [address] [place] Hyaline Casts,Urine None Normal 0-8 [facility] Comment on above: Order Comment: Name Collection Type:: Clean-Voided Midstream Performed By: #### A DDONUAPLUS, CUU #### [place] [address] [place] Mucus,Urine Rare Normal [facility] Comment on above: Order Comment: Name Collection Type:: Clean-Voided Midstream Result Comment: PERF ORMED BY: [place] [address] PATHOLOGIST BRAND ENGINEER TIMA MEYER M.D. Performed By: #### A DDONUAPLUS, CUU #### [place] [address] [place] Nitrite,Urine Negative Normal Negative [facility] Comment on above: Order Comment: Name Collection Type:: Clean-Voided Midstream Performed By: #### A DDONUAPLUS, CUU #### [address] Occult Blood,Urine 3+ High Negative [facility] Comment on above: Order Comment: Name Collection Type:: Clean-Voided Midstream Result Comment: PERF ORMED BY: [place] [address] PATHOLOGIST BRAND ENGINEER TIMA MEYER M.D. Performed By: #### A DDONUAPLUS, CUU #### [address] RBC,Urine Innumerable High 0-4 [facility] Comment on above: Order Comment: Name Collection Type:: Clean-Voided Midstream Performed By: #### A DDONUAPLUS, CUU #### [address] Specificy [place],Urine 1.011 Normal 1.00 1-1.03 0 [facility] Comment on above: Order Comment: Name Collection Type:: Clean-Voided Midstream Performed By: #### A DDONUAPLUS, CUU #### [address] Squamous Epithelial Cell,Urine 5-9 High 0-2 [facility] Comment on above: Order Comment: Name Collection Type:: Clean-Voided Midstream Performed By: #### A DDONUAPLUS, CUU #### [address] Urobilinogen,Urine Normal Normal Normal [facility] Comment on above: Order Comment: Name Collection Type:: Clean-Voided Midstream Performed By: #### A DDONUAPLUS, CUU #### [address] WBC CLUMP, Urine Many High None Seen [facility] Comment on above: Order Comment: Name Collection Type:: Clean-Voided Midstream Performed By: #### A DDONUAPLUS, CUU #### [place] [id number] [place] WBC,Urine Innumerable High 0-4 [facility] Comment on above: Order Comment: Name Collection Type:: Clean-Voided Midstream Performed By: #### A ROCHELLE JENSEN #### [address] ECG 12 lead ECGon 05-18-2024 [address] [facility] [place] [address] [place] [address] Electrocardiograph Report Signed Patient: Alessandra Hardy MR#: [id number] : 1960 Acct:[id number] Age/Sex: 64 / F ADM Date: 05/18/24 Loc: ER Room: Type: PRE ER Attending Dr: Ordering Provider: Gely Story MD Date of Service: 05/18/24 ECG/ECG 12 lead ECG: Fever Copies to: Test Reason : Blood Pressure : 119/65 mmHG Vent. Rate : 114 BPM Atrial Rate : 114 BPM P-R Int : 132 ms QRS Dur : 86 ms QT Int : 332 ms P-R-T Axes : 54 -19 71 degrees QTcB Int : 457 ms Sinus tachycardia Confirmed by Gley Story MD ([id number]) on 05/18/2024 5:42:24 PM Referred By: Electronically Signed By: Gely Story MD Transcribed By: MUS Signed By Gely Story MD 05/02 02/22 1742 Normal [facility] Epithelial cells.squamous [# /area] in Urine sediment by Automated countOrdered By: Gely Story on 05-18-2024 Epithelial cells.squamous Auto (Urine sed) [#/Area] 5-9 [HPF] High 0-2 [facility] Epithelial cells.squamous Auto (Urine sed) [#/Area] Epithelial cells.squamous [#/area] in Urine sediment by Automated count High 0-2 [facility] Erythrocyte distribution wid th [Ratio] by Automated countOrdered By: Gely Story on 05-18-2024 Erythrocyte distribution width (RBC) [Ratio] 14.2 % Normal 11.9-15.3 [facility] Comment on above: Performed By: #### S CAN CBC, CMP, MG, PHOS #### [facility] [address] [place] [id number] [facility] Erythrocytes [#/area] in Uri ne sediment by Automated countOrdered By: Gely Story on 05-18-2024 RBC Auto (Urine sed) [#/Area] Innumerable [HPF] High 0-4 [facility] RBC Auto (Urine sed) [#/Area] Erythrocytes [#/area] in Urine sediment by Automated count High 0-4 [facility] Erythrocytes [#/volume] in B lood by Automated countOrdered By: Gely Story on 05-18-2024 RBC (Bld) [#/Vol] 4.75 10*6/uL Normal 3.60-5.00 [facility] Comment on above: Performed By: #### S CAN CBC, CMP, MG, PHOS #### [facility] [address] [place] [id number] [facility] Fibrin D-dimer [Presence] in Platelet poor plasma by Latex agglutinationOrdered By: Gely Story on 05-18-2024 Fibrin D-dimer LA Ql (PPP) 1172 ng/mL High 0-243 [facility] Comment on above: The reference range for D-dimer is <243 ng/mL D-dimer units.D-dimer results must be used in conjunction with a clinicalpretest probability (PTP) assessment model for deep veinthrombosis (DVT) and pulmonary embolism (PE). Results <230ng/mL d-dimer units can be used as a negative predictor inpatients with low or moderate probability for DVT/PE.Results above the exclusion threshold of 230 ng/ml D-dimerunits for DVT/PE may indicate the need for furtherdiagnostic testing.D-Dimer can be increased in hospitalized patients due toco-morbid conditions.A hematocrit value greater than 55% may lead to inaccurate results in coagulation testing. Patients having hematocrit values >55% require a special collection tube for coagulation studies. Please contact the laboratory at [phone] for redraw instructions. Fibrin D-dimer LA Ql (PPP) Fibrin D-dimer [Presence] in Platelet poor plasma by Latex agglutination High 0-243 [facility] Comment on above: The reference range for D-dimer is <243 ng/mL D-dimer units.D-dimer results must be used in conjunction with a clinicalpretest probability (PTP) assessment model for deep veinthrombosis (DVT) and pulmonary embolism (PE). Results <230ng/mL d-dimer units can be used as a negative predictor inpatients with low or moderate probability for DVT/PE.Results above the exclusion threshold of 230 ng/ml D-dimerunits for DVT/PE may indicate the need for furtherdiagnostic testing.D-Dimer can be increased in hospitalized patients due toco-morbid conditions.A hematocrit value greater than 55% may lead to inaccurate results in coagulation testing. Patients having hematocrit values >55% require a special collection tube for coagulation studies. Please contact the laboratory at [phone] for redraw instructions. Glucose [Mass/volume] in Ser um or PlasmaOrdered By: Gely Story on 05-18-2024 Glucose [Mass/Vol] 130 mg/dL High 70-[address] [facility] Comment on above: ADA recommended refe rence rangeRandom Glucose Reference Range is dependent on time and content of last meal. Glucose of more than 200 mg/dL in a nonstressed, ambulatory subject supports the diagnosis of Diabetes Mellitus. Result Comment: [place] om Glucose Reference Range is dependent on time and content of last meal. Glucose of more than 200 mg/dL in a nonstressed, ambulatory subject supports the diagnosis of Diabetes Mellitus. ADA recommended reference range Performed By: #### S CAN CBC, CMP, MG, PHOS #### [facility] [address] [place] [address] Glucose [Mass/volume] in Uri ne by Test stripOrdered By: Gely Story on 05-18-2024 Glucose Test strip (U) [Mass/Vol] Normal mg/dL Normal [facility] Glucose Test strip (U) [Mass/Vol] Glucose [Mass/volume] in Urine by Test strip Normal [facility] Hematocrit [Volume Fraction] of Blood by Automated countOrdered By: Gely Story on 05-18-2024 Hematocrit (Bld) [Volume fraction] 43.8 % Normal 34.0-46.4 [facility] Comment on above: Performed By: #### S CAN CBC, CMP, MG, PHOS #### [facility] [address] Hemoglobin Test strip Ql (U) Ordered By: Gely Story on 05-18-2024 Hemoglobin Ql (U) 3+ High Negative [facility] Hemoglobin Ql (U) Hemoglobin [Presence ] in Urine by Test strip High Negative [facility] Hemoglobin [Mass/volume] in BloodOrdered By: Gely Story on 05-18-2024 Hemoglobin (Bld) [Mass/Vol] 14.4 g/dL Normal 11.8-15.4 [facility] Comment on above: Performed By: #### S CAN CBC, CMP, MG, PHOS #### [facility] [address] Hepatic Panelon 05-18-2024 Albumin [Mass/Vol] 3.5 g/dL Normal 3.5-5.7 [facility] Comment on above: Performed By: #### S CAN CBC, CMP, MG, PHOS #### [facility] [address] Bilirubin,Indirect 0.6 mg/dL Normal [facility] Comment on above: Performed By: #### S CAN CBC, CMP, MG, PHOS #### [facility] [address] Bilirubin.indirect [Mass/Vol] 0.30 mg/dL High 0.03-0.18 [facility] Comment on above: Performed By: #### S CAN CBC, CMP, MG, PHOS #### [facility] [address] [place] [address] Hyaline casts [#/area] in Ur ine sediment by Automated countOrdered By: Gely Story on 05-18-2024 Hyaline casts Auto (Urine sed) [#/Area] None [LPF] 0-8 [facility] Hyaline casts Auto (Urine sed) [#/Area] Hyaline casts [#/area] in Urine sediment by Automated count 0-8 [facility] INR in Platelet poor plasma by Coagulation assayOrdered By: Gely Story on 05-18-2024 INR Coag (PPP) [Relative time] 1.2 {INR} Normal [facility] Comment on above: INR Therapeutic Rang e A) Pre- and Peroperative OAT started two weeks before surgery. NOT HIP SURGERY: 1.5 - 2.5 HIP SURGERY: 2 - 3B) Primary and secondary prevention of venous THROMBOSIS: 2 - 3C) Active venous thrombosis, pulmonary embolismand prevention of recurrent venous thrombosis: 2 - 3D) Prevention of arterial thromboembolismincluding patients with mechanical heart valves: 3 - 4.5 Result Comment: INR Therapeutic Range A) Pre- and Peroperative OAT started two weeks before surgery. NOT HIP SURGERY: 1.5 - 2.5 HIP SURGERY: 2 - 3 B) Primary and secondary prevention of venous THROMBOSIS: 2 - 3 C) Active venous thrombosis, pulmonary embolism and prevention of recurrent venous thrombosis: 2 - 3 D) Prevention of arterial thromboembolism including patients with mechanical heart valves: 3 - 4.5 Performed By: #### S CAN CBC, CMP, MG, PHOS #### [facility] [address] [place] [address] INR Coag (PPP) [Relative time] INR in Platelet poor plasma by Coagulation assay [facility] Comment on above: INR Therapeutic Rang e A) Pre- and Peroperative OAT started two weeks before surgery. NOT HIP SURGERY: 1.5 - 2.5 HIP SURGERY: 2 - 3B) Primary and secondary prevention of venous THROMBOSIS: 2 - 3C) Active venous thrombosis, pulmonary embolismand prevention of recurrent venous thrombosis: 2 - 3D) Prevention of arterial thromboembolismincluding patients with mechanical heart valves: 3 - 4.5 Ketones Test strip Ql (U)Ord ered By: Gely Story on 05-18-2024 Ketones Ql (U) Ketones [Presence] i n Urine by Test strip Negative [facility] Ketones [Presence] in Urine by Test stripOrdered By: Gely Story on 05-18-2024 Ketones Ql (U) Negative Normal Negative [facility] Comment on above: Order Comment: Name Collection Type:: Clean-Voided Midstream Performed By: #### A DDONUAPLUS, CUU #### [facility] [address] [place] [address] Laboratory - Microbiology an d Antimicrobial susceptibilityOrdered By: Gely Story on 05-18-2024 Bacteria identified Cx Nom (U) Klebsiella oxytoca (ESBL) Abnormal [facility] Lactate [Moles/volume] in Se rum or PlasmaOrdered By: Gely Story on 05-18-2024 Lactate [Moles/Vol] 3.9 mmol/L High 0.5-2.2 [facility] Comment on above: Critical valueresult calledat 2220 on 05/18/24by: SADAF GRIER at: 05/18/2024 22:22:16 by:[id number] --- 05/18/242221 ---Lactic Rfx previously reported as: 3.9 *H mmol/LCritical Result : Called to and read back by: SADAF GRIER at: 05/18/2024 22:22:16 by:[id number] Lactate [Moles/Vol] Lactate [Moles/volum e] in Serum or Plasma Critically high 0.5-2.2 [facility] Comment on above: Critical valueresult calledat 2220 on 05/18/24by: SADAF GRIER at: 05/18/2024 22:22:16 by:[id number] --- 05/18/242221 ---Lactic Rfx previously reported as: 3.9 *H mmol/LCritical Result : Called to and read back by: SADAF GRIER at: 05/18/2024 22:22:16 by:[id number] Lactic Acidon 05-18-2024 Lactate [Moles/Vol] 5.8 mmol/L Off scale high 0.5-2.2 [facility] Comment on above: Result Comment: Crit ical Result : Called to and read back by: ROBERT FRAKNEL at: 05/18/2024 18:05:19 by:[id number] PERFORMED BY: [place] [address] PATHOLOGIST BRAND ENGINEER TIMA MEYER M.D. Performed By: #### S CAN CBC, CMP, MG, PHOS #### [address] Lactic Acid Reflexon 024 Lactic Acid Reflex 3.9 mmol/L Off scale high 0.5-2.2 [facility] Comment on above: Result Comment: Crit ical value result called at 2220 on 05/18/24 by: SADAF GRIER at: 05/18/2024 22:22:16 by:[id number] --- 05/18/242221 --- Lactic Rfx previously reported as: 3.9 *H mmol/L Critical Result : Called to and read back by: SADAF GRIER at: 05/18/2024 22:22:16 by:[id number] PERFORMED BY: [place] [address] PATHOLOGIST BRAND ENGINEER TIMA MEYER M.D. Performed By: #### S CAN CBC, CMP, MG, PHOS #### [facility] [address] [place] [address] Leukocyte clumps [Presence] in Urine by AutomatedOrdered By: Gely Story on 05-18-2024 Leukocyte clumps Auto Ql (U) Many [LPF] High None Seen [facility] Leukocyte clumps Auto Ql (U) Leukocyte clumps [Presence] in Urine by Automated High None Seen [facility] Leukocyte esterase [Presence ] in Urine by Test stripOrdered By: Gely Story on 05-18-2024 Leukocyte esterase Test strip Ql (U) 4+ High Negative [facility] Comment on above: Order Comment: Name Collection Type:: Clean-Voided Midstream Performed By: #### A DDONUAPLUS, CUU #### [facility] [address] [place] [address] Leukocyte esterase Test strip Ql (U) Leukocyte esterase [Presence] in Urine by Test strip High Negative [facility] Leukocytes [#/area] in Urine sediment by Automated countOrdered By: Gely Story on 05-18-2024 WBC Auto (Urine sed) [#/Area] Innumerable [HPF] High 0-4 [facility] WBC Auto (Urine sed) [#/Area] Leukocytes [#/area] in Urine sediment by Automated count High 0-4 [facility] Leukocytes [#/volume] correc tyolr for nucleated erythrocytes in Blood by Automated counOrdered By: Gely Story on 05-18-2024 WBC corrected for nucl RBC Auto (Bld) [#/Vol] 30.2 10*3/uL High 3.8-11.6 [facility] Leukocytes [#/volume] in Blo od by Automated countOrdered By: Gely Story on 05-18-2024 WBC (Bld) [#/Vol] 30.2 10*3/uL High 3.8-11.6 [facility] Comment on above: Performed By: #### S CAN CBC, CMP, MG, PHOS #### [address] Lipase [Enzymatic activity/v olume] in Serum or PlasmaOrdered By: Gely Story on 05-18-2024 Lipase [Catalytic activity/Vol] 9.0 U/L Low 11.0-82.0 [facility] Comment on above: Result Comment: PERF ORMED BY: [place] [address] PATHOLOGIST BRAND ENGINEER TIMA MEYER M.D. Performed By: #### S CAN CBC, CMP, MG, PHOS #### [address] Lipase [Catalytic activity/Vol] Lipase [Enzymatic activity/volume] in Serum or Plasma Low 11.0-82.0 [facility] Lymphocytes [#/volume] in Bl ood by Automated countOrdered By: Gely Story on 05-18-2024 Lymphocytes (Bld) [#/Vol] 0.5 10*3/uL Low 1.00-4.8 [facility] Comment on above: Performed By: #### S CAN CBC, CMP, MG, PHOS #### [place] [address] [place] Lymphocytes/100 leukocytes i n Blood by Automated countOrdered By: Gely Story on 05-18-2024 Lymphocytes/100 WBC (Bld) 1.8 % Normal . [facility] Comment on above: Performed By: #### S CAN CBC, CMP, MG, PHOS #### [place] [address] [place] MCH [Entitic mass] by Automa tylor countOrdered By: Gely Story on 05-18-2024 MCH (RBC) [Entitic mass] 30.4 pg Normal 24.7-34.3 [facility] Comment on above: Performed By: #### S CAN CBC, CMP, MG, PHOS #### [facility] [address] MCHC Auto (RBC) [Mass/Vol]Or dered By: Gely Story on 05-18-2024 MCHC (RBC) [Mass/Vol] 33.0 g/dL 32.0-35.0 [facility] MCV [Entitic volume] by Auto mated countOrdered By: Gely Story on 05-18-2024 MCV (RBC) [Entitic vol] 92.1 fL Normal 80-100 [facility] Comment on above: Performed By: #### S CAN CBC, CMP, MG, PHOS #### [facility] [address] Monocyte distribution width [Entitic volume] in Blood by AutomatedOrdered By: Gely Story on 05-18-2024 Monocyte distribution width Auto (Bld) [Entitic vol] 30.71 % High 0.00-20.00 [facility] Comment on above: For adults in ED, MD W > 20.0 may be associated with a higher risk of sepsis during the first 12 hrs of hospital admission Monocyte distribution width Auto (Bld) [Entitic vol] Monocyte distribution width [Entitic volume] in Blood by Automated High 0.00-20.00 [facility] Comment on above: For adults in ED, MD W > 20.0 may be associated with a higher risk of sepsis during the first 12 hrs of hospital admission Mucus [Presence] in Urine by AutomatedOrdered By: Gely Story on 05-18-2024 Mucus Auto Ql (U) Rare [LPF] [facility] Mucus Auto Ql (U) Mucus [Presence] in Urine by Automated [facility] Natriuretic peptide B [Mass/ Vol]Ordered By: Gely Story on 05-18-2024 Natriuretic peptide B (Bld) [Mass/Vol] BNP ser/plas High 5-100 [facility] Neutrophils [#/volume] in Bl ood by Automated countOrdered By: Gely Story on 05-18-2024 Neutrophils (Bld) [#/Vol] 28.7 10*3/uL High 1.8-7.7 [facility] Comment on above: Performed By: #### S CAN CBC, CMP, MG, PHOS #### [facility] [address] Nitrite Test strip Ql (U)Ord ered By: Gely Story on 05-18-2024 Nitrite Ql (U) Negative Negative [facility] Nitrite Ql (U) Nitrite [Presence] i n Urine by Test strip Negative [facility] No Panel InformationOrdered By: Gely Story on 05-18-2024 Bacterial ID (NA Multiplex Assay) [facility] Bacterial ID (NA Multiplex Assay) Escherichia coli (ESBL) Abnormal [facility] Estimated GFR (CKD-EPI) 21.812 mL/Min [facility] Creatinine Clearance (Chem 28.27 [facility] Nucleated erythrocytes [Pres ence] in Blood by Automated countOrdered By: Gely Story on 05-18-2024 Nucleated RBC Auto Ql (Bld) 0.3 /100{WBC} 0-0.5 [facility] Platelet mean volume [Entiti c volume] in Blood by Automated countOrdered By: Gely Story on 05-18-2024 Platelet mean volume (Bld) [Entitic vol] 7.5 fL Normal 6.3-10.7 [facility] Comment on above: Performed By: #### S CAN CBC, CMP, MG, PHOS #### [facility] [address] [place] [address] [place] Platelets [#/volume] in Bloo d by Automated countOrdered By: Gely Story on 05-18-2024 Platelets (Bld) [#/Vol] 216 10*3/uL Normal 150-450 [facility] Comment on above: Performed By: #### S CAN CBC, CMP, MG, PHOS #### [facility] [address] [place] [address] Potassium [Moles/volume] in Serum or PlasmaOrdered By: Gely Story on 05-18-2024 Potassium [Moles/Vol] 3.7 mmol/L Normal 3.5-5.1 [facility] Comment on above: Performed By: #### S CAN CBC, CMP, MG, PHOS #### [facility] [address] [place] [address] [facility] Protein Test strip (U) [Mass /Vol]Ordered By: Gely Story on 05-18-2024 Protein (U) [Mass/Vol] Protein [Mass/vol ume] in Urine by Test strip High Negative [facility] Protein [Mass/volume] in Ser um or PlasmaOrdered By: Gely Story on 05-18-2024 Protein [Mass/Vol] 7.8 g/dL Normal 6.4-8.[address] [facility] Comment on above: Performed By: #### S CAN CBC, CMP, MG, PHOS #### [facility] [address] Protein [Mass/volume] in Uri ne by Test stripOrdered By: Gely Story on 05-18-2024 Protein (U) [Mass/Vol] 70 mg/dL High Negative [facility] Comment on above: Order Comment: Name Collection Type:: Clean-Voided Midstream Performed By: #### A DDONUAPLUS, CUU #### [facility] [address] [place] [id number] [facility] Prothrombin time (PT)Ordered By: Gely Story on 05-18-2024 PT Coag (PPP) [Time] 13.3 s High 9.0-12.9 [facility] Comment on above: A hematocrit value g reater than 55% may lead to inaccurate results in coagulation testing. Patients having hematocrit values >55% require a special collection tube for coagulation studies. Please contact the laboratory at [phone] for redraw instructions. Result Comment: A he matocrit value greater than 55% may lead to inaccurate results in coagulation testing. Patients having hematocrit values >55% require a special collection tube for coagulation studies. Please contact the laboratory at [phone] for redraw instructions. Performed By: #### S CAN CBC, CMP, MG, PHOS #### [facility] [address] [place] [address] [facility] PT Coag (PPP) [Time] Prothrombin time (PT) High 9.0- 12.9 [facility] Comment on above: A hematocrit value g reater than 55% may lead to inaccurate results in coagulation testing. Patients having hematocrit values >55% require a special collection tube for coagulation studies. Please contact the laboratory at [phone] for redraw instructions. Respiratory specimen influen za A virus, influenza B virus, respiratory syncytical virOrdered By: Gely Story on 05-18-2024 SARS-CoV-2 (COVID-19) RNA LISA+probe Ql (Unsp spec) Respiratory specimen influenza A virus, influenza B virus, respiratory syncytical vir [facility] Serum globulin measurement b y calculation (mass/volume)Ordered By: Gely Story on 05-18-2024 Globulin (S) [Mass/Vol] 4.3 g/dL Normal [facility] Comment on above: Performed By: #### S CAN CBC, CMP, MG, PHOS #### [facility] [address] [place] [address] Serum or plasma albumin/glob ulin mass ratioOrdered By: Gely Story on 05-18-2024 Albumin/Globulin [Mass ratio] 0.8 {ratio} Normal [facility] Comment on above: Performed By: #### S CAN CBC, CMP, MG, PHOS #### [facility] [address] Serum or plasma anion gap de terminationOrdered By: Gely Story on 05-18-2024 Anion gap [Moles/Vol] 18.4 mmol/L High 6.0-15.0 [facility] Comment on above: Performed By: #### S CAN CBC, CMP, MG, PHOS #### [facility] [address] [place] [address] Serum or plasma non-glucuron idated bilirubin measurement (mass/volume)Ordered By: Gely Story on 05-18-2024 Bilirubin.indirect [Mass/Vol] 0.6 mg/dL [facility] Bilirubin.indirect [Mass/Vol] Serum or plasma non-glucuronidated bilirubin measurement (mass/volume) [facility] Sodium [Moles/volume] in Ser um or PlasmaOrdered By: Gely Story on 05-18-2024 Sodium [Moles/Vol] 137 mmol/L Normal 136-[address] [facility] Comment on above: Performed By: #### S CAN CBC, CMP, MG, PHOS #### [address] Specific gravity Test strip (U) [Rel density]Ordered By: Gely Story on 05-18-2024 Specific gravity (U) [Rel density] 1.011 1.001-1.03 0 [facility] Specific gravity (U) [Rel density] Specific gravity of Urine by Test strip 1.001-1.03 0 [facility] Troponin I High Sensitivityo n 05-18-2024 Troponin I High Sensitivity 68.3 pg/mL Off scale high 0.0-15.0 [facility] Comment on above: Result Comment: Crit ical Result : Called to and read back by: WILNER PALENCIA at: 05/18/2024 22:31:36 by:[id number] PERFORMED BY: [place] [address] PATHOLOGIST BRAND ENGINEER TIMA MEYER M.D. Performed By: #### H S TROP #### [address] Troponin I High Sensitivity 149.5 pg/mL Off scale high 0.0-15.0 [facility] Comment on above: Result Comment: Crit ical Result : Called to and read back by: KASSY AIKEN at: 05/18/2024 18:44:36 by:[id number] PERFORMED BY: [place] [address] PATHOLOGIST BRAND ENGINEER TIMA MEYER M.D. Performed By: #### S CAN CBC, CMP, MG, PHOS #### [address] Troponin I.cardiac [Mass/vol ume] in Serum or Plasma by Detection limit <= 0.01 ng/Ordered By: Gely Story on 05-18-2024 Troponin I.cardiac DL <= 0.01 ng/mL [Mass/Vol] 68.3 pg/mL High 0.0-15.0 [facility] Comment on above: Critical Result : Ca lled to and read back by: WILNER PALENCIA at: 05/18/2024 22:31:36 by:[id number] Troponin I.cardiac DL <= 0.01 ng/mL [Mass/Vol] Troponin I.cardiac [Mass/volume] in Serum or Plasma by Detection limit <= 0.01 ng/ Critically high 0.0-15.0 [facility] Comment on above: Critical Result : Ca lled to and read back by: WILNER PALENCIA at: 05/18/2024 22:31:36 by:[id number] Troponin I.cardiac DL <= 0.01 ng/mL [Mass/Vol] 149.5 pg/mL High 0.0-15.0 [facility] Comment on above: Critical Result : Ca lled to and read back by: KASSY AIKEN at: 05/18/2024 18:44:36 by:[id number] Urea nitrogen [Mass/volume] in Serum or PlasmaOrdered By: Gely Story on 05-18-2024 Urea nitrogen [Mass/Vol] 26 mg/dL High 7-25 [facility] Comment on above: Performed By: #### S CAN CBC, CMP, MG, PHOS #### [address] Urine Cultureon 05-18-2024 Bacteria identified Cx Nom (U) ESBL results called at 0918 on 05/21/24 ORGANISM: Klebsiella oxytoca (ESBL) (O:KLEOXYESBL) [place] Count >100,000 Aerobic DESMOND Charge (NMIC56) SUSCEPTIBILITY ORGANISM: O:KLEOXYESBL ANTIBIOTIC INTERPRETATION DESMOND Amikacin S <16 Amoxacillin/K Clavulanate S <8 Ampicillin/Sulbactam S 88/4 Aztreonam ESBL >16 Cefazolin R* >16 Cefepime R* >16 Ceftazidime ESBL >16 Ceftazidime/Avibactam S <4 Ceftolozane/Tazobactam S <2 Ceftriaxone ESBL >32 Cefuroxime R* >16 Ciprofloxacin R >2 Ertapenem S <0.5 Gentamicin S <2 Levofloxacin R >4 Meropenem S <1 Meropenem/Vaborbactam S <2 Nitrofurantoin S <32 Piperacillin/Tazobactam S <8 Tetracycline S <4 Tigecycline S <2 Tobramycin S <2 Trimethoprim/Sulfamethoxa zole S <0.5 S = SUSCEPTIBLE I = INTERMEDIATE R = RESISTANT BLANK = DATA NOT AVAILABLE, OR DRUG NOT ADVISABLE OR TESTED R* = RESISTANCE DUE TO EXTENDED SPECTRUM BETA-LACTAMASES ESBL = EXTENDED SPECTRUM BETA-LACTAMASE TFG = THYMIDINE-DEPENDENT STRAIN YO = BETA-LACTAMASE POSITIVE IB = INDUCIBLE BETA-LACTAMASE. APPEARS IN PLACE OF 'S' WITH SPECIES KNOWN TO POSSESS INDUCIBLE BETA-LACTAMASES. POTENTIALLY THEY MAY BECOME RESISTANT TO ALL B-LACTAM DRUGS. PERFORMED BY: [place] [address] PATHOLOGIST BRAND ENGINEER TIMA MEYER M.D. Normal [facility] Comment on above: Performed By: #### A DDONUAPLUS, CUU #### [facility] [address] [place] [address] Urine appearanceOrdered By: Gely Story on 05-18-2024 Appearance (U) Turbid Critically abnormal Clear [facility] Comment on above: Order Comment: Name Collection Type:: Clean-Voided Midstream Performed By: #### A DDONUAPLUS, CUU #### [facility] [address] [place] [address] Urine cultureOrdered By: Otis Story on 05-18-2024 Bacteria identified Cx Nom (U) Abnormal [facility] Urobilinogen Test strip (U) [Mass/Vol]Ordered By: Gely Story on 05-18-2024 Urobilinogen (U) [Mass/Vol] Normal mg/dL Normal [facility] Urobilinogen (U) [Mass/Vol] Urobilinogen [Mass/volume] in Urine by Test strip Normal [facility] XR chest 2V*on 05-18-2024 XR chest 2V* [facility] [place] [address] XRay Report Signed Patient: Alessandra Hardy MR#: [id number] : 1960 Acct:[id number] Age/Sex: 64 / F ADM Date: 05/18/24 Loc: ER Room: Type: PRE ER Attending Dr: Copies to: Gely Story MD Ordering Provider: Gely Story MD Date of Service: 05/18/24 XR/XR chest 2V*: Fever Chest 2 views CLINICAL HISTORY: Low blood pressure right lower quadrant pain fever COMPARISON: Chest 10/17/2023 FINDINGS: Heart normal in size. Chronic elevation right hemidiaphragm with right basilar atelectasis. No new consolidation pneumothorax pleural effusion or free air. Multilevel cement augmentation involving the thoracic spine. XR/XR chest 2V* IMPRESSION: NO ACUTE CARDIOPULMONARY ABNORMALITY. Impression dictated by: Ihsan Rosales Jr., D.O.05/18/2024 6:00 PM Dictation Location: [facility] Transcribed By: [facility] 05/18/24 1800 Dictated By: Ihsan Rosales Jr, DO 05/18/24 1759 Signed By: 05/18/24 1800 Normal [facility] pH Test strip (U)Ordered By: Gely Story on 05-18-2024 pH (U) pH of Urine by Test strip 5.0-9.0 [facility] pH of Urine by Test stripOrd ered By: Gely Story on 05-18-2024 pH (U) 6.5 [pH] Normal 5.0-9.0 [facility] Comment on above: Order Comment: Name Collection Type:: Clean-Voided Midstream Performed By: #### A DDARACELIS, CUU #### [address] Activated partial thrombopla stin time (aPTT) in platelet poor plasma by coagulation aOrdered By: Tammy Allan on 05-16-2024 aPTT Coag (PPP) [Time] 31.3 s 25.1-36.5 [facility] Comment on above: A hematocrit value g reater than 55% may lead to inaccurate results in coagulation testing. Patients having hematocrit values >55% require a special collection tube for coagulation studies. Please contact the laboratory at [phone] for redraw instructions. Automated basophil %Ordered By: Tammy Allan on 05-16-2024 Basophils/100 WBC (Bld) 0.7 % Normal . [facility] Comment on above: Performed By: #### S CAN CBC, CMP, MG, PHOS #### [address] Automated basophil countOrde red By: Tammy Allan on 05-16-2024 Basophils (Bld) [#/Vol] 0.0 10*3/uL Normal 0.0-0.2 [facility] Comment on above: Result Comment: PERF ORMED BY: [place] [address] PATHOLOGIST BRAND ENGINEER TIMA MEYER M.D. Performed By: #### S CAN CBC, CMP, MG, PHOS #### [address] Automated blood monocyte cou ntOrdered By: Tammy Allan on 05-16-2024 Monocytes (Bld) [#/Vol] 0.4 10*3/uL Normal 0.0-0.8 [facility] Comment on above: Performed By: #### S CAN CBC, CMP, MG, PHOS #### [address] Automated eosinophil %Ordere d By: Tammy Allan on 05-16-2024 Eosinophils/100 WBC (Bld) 6.0 % Normal . [facility] Comment on above: Performed By: #### S CAN CBC, CMP, MG, PHOS #### [address] Automated eosinophil countOr dered By: Tammy Allan on 05-16-2024 Eosinophils (Bld) [#/Vol] 0.4 10*3/uL Normal 0.0-0.45 [facility] Comment on above: Performed By: #### S CAN CBC, CMP, MG, PHOS #### [address] [place] [address] [place] Automated monocyte %Ordered By: Tammy Allan on 05-16-2024 Monocytes/100 WBC (Bld) 6.4 % Normal . [facility] Comment on above: Performed By: #### S CAN CBC, CMP, MG, PHOS #### [address] Automated neutrophil %Ordere d By: Tammy Allan on 05-16-2024 Neutrophils/100 WBC (Bld) 66.4 % Normal . [facility] Comment on above: Performed By: #### S CAN CBC, CMP, MG, PHOS #### [address] Basic Metabolic Panelon 05-02 GFR/1.73 sq M.predicted MDRD (S/P/Bld) [Vol rate/Area] mL/min/{1.73_m2} Normal [facility] Comment on above: Performed By: #### S CAN CBC, CMP, MG, PHOS #### [address] Basophils Auto (Bld) [#/Vol] Ordered By: Tammy Allan on 05-16-2024 Basophils (Bld) [#/Vol] Automated basophil count 0.0-0.2 [facility] Basophils/100 WBC Auto (Bld) Ordered By: Tammy Allan on 05-16-2024 Basophils/100 WBC (Bld) Automated basophil % . [facility] CT abdomen pelvis w conon CT abdomen pelvis w con [facility] [place] [address] CT Scan Report Signed Patient: Alessandra Hardy MR#: [id number] : 1960 Acct:[id number] Age/Sex: 64 / F ADM Date: 05/16/24 Loc: CT Room: Type: [facility] Attending Dr: Neva Miller DO Copies to: Neva Miller DO Ordering Provider: Neva Miller DO Date of Service: 05/16/24 CT/CT abdomen pelvis w con: RLQ PAIN CT ABDOMEN AND PELVIS WITH CONTRAST COMPARISON: 06/08/2023 CLINICAL DATA: Left lower quadrant pain. Spiral images were obtained through the abdomen and pelvis following oral and 90 mL of Isovue-300. This CT exam was performed using one or more following dose reduction techniques: Automated exposure control, adjustment of the mA and/or kV according to patient size, or use of iterative reconstruction technique. Limited cuts through the lung bases show elevation right hemidiaphragm with adjacent scarring or atelectasis. There is also minor atelectasis or scarring on the left. Fatty infiltration of the liver is seen. No calcified gallstones are identified. The spleen, pancreas and adrenal glands show no acute findings. The renal nephrograms are symmetric. There are small stones at the lower pole of both kidneys. There is no hydronephrosis however extrarenal pelves are again seen. Urothelial thickening/enhancement at the renal pelvis and ureters is noted on both sides, greater on the left. This was also seen on the left on the comparison. No ureteral stones are identified. There is atherosclerotic plaque involving the aorta and iliac arteries. There are a few small lymph nodes. There is no ascites. The small bowel loops are not distended. There is mild stool along the colon. There is subtle S-shaped thoracolumbar scoliotic curvature. A T8 compression fracture with kyphoplasty is again seen. No new compression deformities are identified. There is minor degenerative change. Images through the pelvis show slight streak artifact from a right dynamic hip screw. There are normal caliber small bowel loops. The appendix is not discretely seen. There is mild distal colonic stool. No prominent diverticular disease is seen. The uterus is present. There are no adnexal cysts. The urinary bladder contains a Poole catheter is not adequately distended for assessment. No ascites is seen. CT/CT abdomen pelvis w con IMPRESSION: BIBASILAR ATELECTASIS AND/OR SCARRING. FATTY LIVER. BILATERAL NEPHROLITHIASIS, WITHOUT OBSTRUCTION. UROTHELIAL THICKENING AT THE RENAL PELVES AND LEFT URETER. THIS COULD INDICATE INFECTION. CORRELATION IS SUGGESTED. COLLAPSED POOLE CONTAINING URINARY BLADDER, LIMITING ASSESSMENT. NO OTHER ACUTE FINDINGS. Impression dictated by: Marisa Álvarez M.D.05/16/2024 12:10 PM Dictation Location: [facility] Transcribed By: JESSICA 05/16/24 1210 Dictated By: Marisa Álvarez MD 05/16/24 1202 Signed By: 05/16/24 1210 Normal [facility] Calcium [Mass/volume] in Ser um or PlasmaOrdered By: Tammy Allan on 05-16-2024 Calcium [Mass/Vol] 8.8 mg/dL Normal 8.6-10.[address] [facility] Comment on above: Result Comment: PERF ORMED BY: [place] [address] PATHOLOGIST BRAND ENGINEER TIMA MEYER M.D. Performed By: #### S CAN CBC, CMP, MG, PHOS #### [facility] [address] [place] [address] Calcium [Mass/Vol] Calcium [Mass/volume ] in Serum or Plasma 8.6-10.3 [facility] Carbon dioxide, total [Moles /volume] in Serum or PlasmaOrdered By: Tammy lAlan on 05-16-2024 CO2 [Moles/Vol] 31.1 mmol/L High 21.0-31.0 [facility] Comment on above: Performed By: #### S CAN CBC, CMP, MG, PHOS #### [facility] [address] [place] [address] CO2 [Moles/Vol] Carbon dioxide, tota l [Moles/volume] in Serum or Plasma High 21.0-31.0 [facility] Chloride [Moles/volume] in S black or PlasmaOrdered By: Tammy Allan on 05-16-2024 Chloride [Moles/Vol] 104 mmol/L Normal 98-107 [facility] Comment on above: Performed By: #### S CAN CBC, CMP, MG, PHOS #### [facility] [address] [place] [address] [place] Chloride [Moles/Vol] Chloride [Moles/vol ume] in Serum or Plasma 98-107 [facility] Complete Blood Count Auto Di ffon 05-16-2024 Mean Corpuscular HGB Conc 34.0 g/dL Normal 32.0-35.0 [facility] Comment on above: Performed By: #### S CAN CBC, CMP, MG, PHOS #### [facility] [address] NRBC% 0.1 /100{WBC} Normal 0-0.5 [facility] Comment on above: Performed By: #### S CAN CBC, CMP, MG, PHOS #### [facility] [address] [place] [address] [place] Creatinine [Mass/volume] in Serum or PlasmaOrdered By: Tammy Allan on 05-16-2024 Creatinine [Mass/Vol] 1.00 mg/dL Normal 0.60-1.20 [facility] Comment on above: Performed By: #### S CAN CBC, CMP, MG, PHOS #### [facility] [address] Creatinine [Mass/Vol] Creatinine [Mass/v olume] in Serum or Plasma 0.60-1.20 [facility] ECG 12 lead ECGon 05-16-2024 [address] [facility] [place] [address] [place] [address] Electrocardiograph Report Signed Patient: Alessandra Hardy MR#: [id number] : 1960 Acct:[id number] Age/Sex: 64 / F ADM Date: 05/16/24 Loc: Room: Type: [facility] Attending Dr: Tammy Allan MD Ordering Provider: Tammy Allan MD Date of Service: 05/16/24 ECG/ECG 12 lead ECG: PST Urology orders Copies to: Test Reason : Blood Pressure : */* mmHG Vent. Rate : 73 BPM Atrial Rate : 73 BPM P-R Int : 140 ms QRS Dur : 92 ms QT Int : 422 ms P-R-T Axes : 33 -24 53 degrees QTcB Int : 464 ms Normal sinus rhythm Nonspecific T wave abnormality Abnormal ECG When compared with ECG of 17-Oct-2023 12:23, No significant change was found Confirmed by MIRTA SUAREZ MD ([id number]) on 05/16/2024 2:59:53 PM Referred By: Electronically Signed By: MIRTA SUAREZ MD Transcribed By: [facility] Signed By Mirta Suarez MD 1 1459 Normal [facility] Eosinophils Auto (Bld) [#/Vo l]Ordered By: Tammy Allan on 05-16-2024 Eosinophils (Bld) [#/Vol] Automated eosinophil count 0.0-0.45 [facility] Eosinophils/100 WBC Auto (Bl d)Ordered By: Tammy Allan on 05-16-2024 Eosinophils/100 WBC (Bld) Automated eosinophil % . [facility] Erythrocyte distribution wid th Auto (RBC) [Ratio]Ordered By: Tammy Allan on 05-16-2024 Erythrocyte distribution width (RBC) [Ratio] Erythrocyte distribution width [Ratio] by Automated count 11.9-15.3 [facility] Erythrocyte distribution wid th [Ratio] by Automated countOrdered By: Tammy Allan on 05-16-2024 Erythrocyte distribution width (RBC) [Ratio] 14.2 % Normal 11.9-15.3 [facility] Comment on above: Performed By: #### S CAN CBC, CMP, MG, PHOS #### [facility] [address] [place] [address] [place] Erythrocytes [#/volume] in B lood by Automated countOrdered By: Tammy Allan on 05-16-2024 RBC (Bld) [#/Vol] 4.48 10*6/uL Normal 3.60-5.00 [facility] Comment on above: Performed By: #### S CAN CBC, CMP, MG, PHOS #### [facility] [address] [place] [id number] [place] Glucose [Mass/volume] in Ser um or PlasmaOrdered By: Tammy Allan on 05-16-2024 Glucose [Mass/Vol] 90 mg/dL Normal 70-[address] [facility] Comment on above: ADA recommended refe rence rangeRandom Glucose Reference Range is dependent on time and content of last meal. Glucose of more than 200 mg/dL in a nonstressed, ambulatory subject supports the diagnosis of Diabetes Mellitus. Result Comment: [place] om Glucose Reference Range is dependent on time and content of last meal. Glucose of more than 200 mg/dL in a nonstressed, ambulatory subject supports the diagnosis of Diabetes Mellitus. ADA recommended reference range Performed By: #### S CAN CBC, CMP, MG, PHOS #### [facility] [address] [place] [address] Glucose [Mass/Vol] Glucose [Mass/volume ] in Serum or Plasma 70-100 [facility] Comment on above: ADA recommended refe rence rangeRandom Glucose Reference Range is dependent on time and content of last meal. Glucose of more than 200 mg/dL in a nonstressed, ambulatory subject supports the diagnosis of Diabetes Mellitus. Hematocrit Auto (Bld) [Volum e fraction]Ordered By: Tammy Allan on 05-16-2024 Hematocrit (Bld) [Volume fraction] Hematocrit [Volume Fraction] of Blood by Automated count 34.0-46.4 [facility] Hematocrit [Volume Fraction] of Blood by Automated countOrdered By: Tammy Allan on 05-16-2024 Hematocrit (Bld) [Volume fraction] 40.9 % Normal 34.0-46.4 [facility] Comment on above: Performed By: #### S CAN CBC, CMP, MG, PHOS #### [facility] [address] [place] [address] Hemoglobin [Mass/volume] in BloodOrdered By: Tammy Allan on 05-16-2024 Hemoglobin (Bld) [Mass/Vol] 13.9 g/dL Normal 11.8-15.4 [facility] Comment on above: Performed By: #### S CAN CBC, CMP, MG, PHOS #### [facility] [address] [place] [address] Hemoglobin (Bld) [Mass/Vol] Hemoglobin [Mass/volume] in Blood 11.8-15.4 [facility] INR in Platelet poor plasma by Coagulation assayOrdered By: Tammy Allan on 05-16-2024 INR Coag (PPP) [Relative time] 1.0 {INR} Normal [facility] Comment on above: INR Therapeutic Rang e A) Pre- and Peroperative OAT started two weeks before surgery. NOT HIP SURGERY: 1.5 - 2.5 HIP SURGERY: 2 - 3B) Primary and secondary prevention of venous THROMBOSIS: 2 - 3C) Active venous thrombosis, pulmonary embolismand prevention of recurrent venous thrombosis: 2 - 3D) Prevention of arterial thromboembolismincluding patients with mechanical heart valves: 3 - 4.5 Result Comment: INR Therapeutic Range A) Pre- and Peroperative OAT started two weeks before surgery. NOT HIP SURGERY: 1.5 - 2.5 HIP SURGERY: 2 - 3 B) Primary and secondary prevention of venous THROMBOSIS: 2 - 3 C) Active venous thrombosis, pulmonary embolism and prevention of recurrent venous thrombosis: 2 - 3 D) Prevention of arterial thromboembolism including patients with mechanical heart valves: 3 - 4.5 Performed By: #### S CAN CBC, CMP, MG, PHOS #### [facility] [address] INR Coag (PPP) [Relative time] INR in Platelet poor plasma by Coagulation assay [facility] Comment on above: INR Therapeutic Rang e A) Pre- and Peroperative OAT started two weeks before surgery. NOT HIP SURGERY: 1.5 - 2.5 HIP SURGERY: 2 - 3B) Primary and secondary prevention of venous THROMBOSIS: 2 - 3C) Active venous thrombosis, pulmonary embolismand prevention of recurrent venous thrombosis: 2 - 3D) Prevention of arterial thromboembolismincluding patients with mechanical heart valves: 3 - 4.5 Leukocytes [#/volume] correc tylor for nucleated erythrocytes in Blood by Automated counOrdered By: Tammy Allan on 05-16-2024 WBC corrected for nucl RBC Auto (Bld) [#/Vol] 6.8 10*3/uL 3.8-11.6 [facility] WBC corrected for nucl RBC Auto (Bld) [#/Vol] Leukocytes [#/volume] corrected for nucleated erythrocytes in Blood by Automated coun 3.8-11.6 [facility] Leukocytes [#/volume] in Blo od by Automated countOrdered By: Tammy Allan on 05-16-2024 WBC (Bld) [#/Vol] 6.8 10*3/uL Normal 3.8-11.[address] [facility] Comment on above: Performed By: #### S CAN CBC, CMP, MG, PHOS #### [facility] [address] [place] [address] [place] Lymphocytes Auto (Bld) [#/Vo l]Ordered By: Tammy Allan on 05-16-2024 Lymphocytes (Bld) [#/Vol] Lymphocytes [#/volume] in Blood by Automated count 1.00-4.8 [facility] Lymphocytes [#/volume] in Bl ood by Automated countOrdered By: Tammy Allan on 05-16-2024 Lymphocytes (Bld) [#/Vol] 1.4 10*3/uL Normal 1.00-4.8 [facility] Comment on above: Performed By: #### S CAN CBC, CMP, MG, PHOS #### [facility] [address] Lymphocytes/100 WBC Auto (Bl d)Ordered By: Tammy Allan on 05-16-2024 Lymphocytes/100 WBC (Bld) Lymphocytes/100 leukocytes in Blood by Automated count . [facility] Lymphocytes/100 leukocytes i n Blood by Automated countOrdered By: Tammy Allan on 05-16-2024 Lymphocytes/100 WBC (Bld) 20.5 % Normal . [facility] Comment on above: Performed By: #### S CAN CBC, CMP, MG, PHOS #### [facility] [address] [place] [address] MCH Auto (RBC) [Entitic mass ]Ordered By: Tammy Allan on 05-16-2024 MCH (RBC) [Entitic mass] MCH [Entitic ma ss] by Automated count 24.7-34.3 [facility] MCH [Entitic mass] by Automa tylor countOrdered By: Tammy Allan on 05-16-2024 MCH (RBC) [Entitic mass] 31.1 pg Normal 24.7-34.3 [facility] Comment on above: Performed By: #### S CAN CBC, CMP, MG, PHOS #### [facility] [address] [place] [address] MCHC Auto (RBC) [Mass/Vol]Or dered By: Tammy Allan on 05-16-2024 MCHC (RBC) [Mass/Vol] 34.0 g/dL 32.0-35.0 [facility] MCHC (RBC) [Mass/Vol] MCHC [Mass/volume] by Automated count 32.0-35.0 [facility] MCV Auto (RBC) [Entitic vol] Ordered By: Tammy Allan on 05-16-2024 MCV (RBC) [Entitic vol] MCV [Entitic vol ume] by Automated count 80-100 [facility] MCV [Entitic volume] by Auto mated countOrdered By: Tammy Allan on 05-16-2024 MCV (RBC) [Entitic vol] 91.3 fL Normal 80-100 [facility] Comment on above: Performed By: #### S CAN CBC, CMP, MG, PHOS #### [facility] [address] [place] [address] [place] Monocytes Auto (Bld) [#/Vol] Ordered By: Tammy Allan on 05-16-2024 Monocytes (Bld) [#/Vol] Automated blood monocyte count 0.0-0.8 [facility] Monocytes/100 WBC Auto (Bld) Ordered By: Tammy Allan on 05-16-2024 Monocytes/100 WBC (Bld) Automated monocyte % . [facility] Neutrophils Auto (Bld) [#/Vo l]Ordered By: Tammy Allan on 05-16-2024 Neutrophils (Bld) [#/Vol] Neutrophils [#/volume] in Blood by Automated count 1.8-7.7 [facility] Neutrophils [#/volume] in Bl ood by Automated countOrdered By: Tammy Allan on 05-16-2024 Neutrophils (Bld) [#/Vol] 4.6 10*3/uL Normal 1.8-7.7 [facility] Comment on above: Performed By: #### S CAN CBC, CMP, MG, PHOS #### [facility] [address] [place] [address] [place] Neutrophils/100 WBC Auto (Bl d)Ordered By: Tammy Allan on 05-16-2024 Neutrophils/100 WBC (Bld) Automated neutrophil % . [facility] No Panel InformationOrdered By: Tammy Allan on 05-16-2024 Estimated GFR (CKD-EPI) > 60.0 mL/Min [facility] Creatinine Clearance (Chem N/A [facility] Nucleated erythrocytes [Pres ence] in Blood by Automated countOrdered By: Tammy Allan on 05-16-2024 Nucleated RBC Auto Ql (Bld) 0.1 /100{WBC} 0-0.5 [facility] Nucleated RBC Auto Ql (Bld) Nucleated erythrocytes [Presence] in Blood by Automated count 0-0.5 [facility] Partial Thromboplastin Timeo n 05-16-2024 aPTT Coag (Bld) [Time] 31.3 s Normal 25.1-36.5 [facility] Comment on above: Result Comment: A he matocrit value greater than 55% may lead to inaccurate results in coagulation testing. Patients having hematocrit values >55% require a special collection tube for coagulation studies. Please contact the laboratory at [phone] for redraw instructions. PERFORMED BY: [place] [address] PATHOLOGIST BRAND ENGINEER TIMA MEYER M.D. Performed By: #### S CAN CBC, CMP, MG, PHOS #### [facility] [address] [place] [address] Platelet mean volume Auto (B ld) [Entitic vol]Ordered By: Tammy Allan on 05-16-2024 Platelet mean volume (Bld) [Entitic vol] Platelet mean volume [Entitic volume] in Blood by Automated count 6.3-10.7 [facility] Platelet mean volume [Entiti c volume] in Blood by Automated countOrdered By: Tammy Allan on 05-16-2024 Platelet mean volume (Bld) [Entitic vol] 7.0 fL Normal 6.3-10.7 [facility] Comment on above: Performed By: #### S CAN CBC, CMP, MG, PHOS #### [facility] [address] [place] [address] [place] Platelets Auto (Bld) [#/Vol] Ordered By: Tammy Allan on 05-16-2024 Platelets (Bld) [#/Vol] Platelets [#/vol ume] in Blood by Automated count 150-450 [facility] Platelets [#/volume] in Bloo d by Automated countOrdered By: Tammy Allan on 05-16-2024 Platelets (Bld) [#/Vol] 277 10*3/uL Normal 150-450 [facility] Comment on above: Performed By: #### S CAN CBC, CMP, MG, PHOS #### [facility] [address] [place] [id number] [facility] Potassium [Moles/volume] in Serum or PlasmaOrdered By: Tammy Allan on 05-16-2024 Potassium [Moles/Vol] 3.8 mmol/L Normal 3.5-5.1 [facility] Comment on above: Performed By: #### S CAN CBC, CMP, MG, PHOS #### [facility] [address] [place] [address] [facility] Potassium [Moles/Vol] Potassium [Moles/v olume] in Serum or Plasma 3.5-5.1 [facility] Prothrombin time (PT)Ordered By: Tammy Allan on 05-16-2024 PT Coag (PPP) [Time] 11.7 s Normal 9.0-12.9 [facility] Comment on above: A hematocrit value g reater than 55% may lead to inaccurate results in coagulation testing. Patients having hematocrit values >55% require a special collection tube for coagulation studies. Please contact the laboratory at [phone] for redraw instructions. Result Comment: A he matocrit value greater than 55% may lead to inaccurate results in coagulation testing. Patients having hematocrit values >55% require a special collection tube for coagulation studies. Please contact the laboratory at [phone] for redraw instructions. Performed By: #### S CAN CBC, CMP, MG, PHOS #### [facility] [address] [place] [id number] [facility] PT Coag (PPP) [Time] Prothrombin time (PT) 9.0- 12.9 [facility] Comment on above: A hematocrit value g reater than 55% may lead to inaccurate results in coagulation testing. Patients having hematocrit values >55% require a special collection tube for coagulation studies. Please contact the laboratory at [phone] for redraw instructions. RBC Auto (Bld) [#/Vol]Ordere d By: Tammy Allan on 05-16-2024 RBC (Bld) [#/Vol] Erythrocytes [#/volu me] in Blood by Automated count 3.60-5.00 [facility] Serum or plasma anion gap de terminationOrdered By: Tammy Allan on 05-16-2024 Anion gap [Moles/Vol] 9.7 mmol/L Normal 6.0-15.0 [facility] Comment on above: Performed By: #### S CAN CBC, CMP, MG, PHOS #### [facility] [address] [place] [address] Anion gap [Moles/Vol] Serum or plasma an ion gap determination 6.0-15.0 [facility] Sodium [Moles/volume] in Ser um or PlasmaOrdered By: Tammy Allan on 05-16-2024 Sodium [Moles/Vol] 141 mmol/L Normal 136-[address] [facility] Comment on above: Performed By: #### S CAN CBC, CMP, MG, PHOS #### [facility] [address] [place] [address] Sodium [Moles/Vol] Sodium [Moles/volume ] in Serum or Plasma 136-145 [facility] Urea nitrogen [Mass/volume] in Serum or PlasmaOrdered By: Tammy Allan on 05-16-2024 Urea nitrogen [Mass/Vol] 17 mg/dL Normal 7- [facility] Comment on above: Performed By: #### S CAN CBC, CMP, MG, PHOS #### [facility] [address] [place] [address] Urea nitrogen [Mass/Vol] Urea nitrogen [Mass/volume] in Serum or Plasma 7-25 [facility] WBC Auto (Bld) [#/Vol]Ordere d By: Tammy Allan on 05-16-2024 WBC (Bld) [#/Vol] Leukocytes [#/volume ] in Blood by Automated count 3.8-11.6 [facility] aPTT in Platelet poor plasma by Coagulation assayOrdered By: Tammy Allan on 05-16-2024 aPTT Coag (PPP) [Time] Activated partial thromboplastin time (aPTT) in platelet poor plasma by coagulation a 25.1-36.5 [facility] Comment on above: A hematocrit value g reater than 55% may lead to inaccurate results in coagulation testing. Patients having hematocrit values >55% require a special collection tube for coagulation studies. Please contact the laboratory at [phone] for redraw instructions. Ambulatory Visit Summaryon 0 02-09-2024 Ambulatory Visit Summary Ambulatory Visi t Summary ALESSANDRA HARDY :1960 Visit Date:02/09/2024 Ambulatory Visit Instructions Your Diagnosis Neurogenic bladder Your Care Team Attending Physician - Tammy ALLAN MD Primary Care Physician - NEVA MILLER DO This Is Your Medications List mirabegron (Myrbetriq 50 mg oral tablet, extended release) Contact prescribing physician if questions or concerns acetaminophen (acetaminophen 500 mg Tab) cholecalciferol (Vitamin D 1000 intl units (25 mcg) Tab) fludrocortisone (fludrocortisone 0.1 mg Tab) fluoxetine (Prozac 10 mg Cap) lamotrigine (Lamictal 100 mg Tab) menthol topical (menthol 1.7 mg mucous membrane lozenge) miconazole nortriptyline (nortriptyline 25 mg Cap) ocular lubricant (Artificial Tears) pantoprazole (Protonix 20 mg Tab-DR) petrolatum topical (Vicks BabyRub topical ointment) polyethylene glycol 3350 (Miralax 17 gram packet) senna (Phl-Sennosides) sodium chloride (Sodium Chloride) tacrolimus topical (tacrolimus topical 0.1% ointment) [Image Removed: STOP]Stop taking these medications ciprofloxacin (Cipro 500 mg Tab) Procedures Performed Stent removal (09/15/2022), Cystoscopic insertion of ureteric stent (05/26/2022), Cystoscopy (12/02/2021). Discharge Vitals Temperature (Temporal Artery) 37 ?C Heart Rate (Peripheral) 71 Respiratory Rate 16 Blood Pressure 119/86 Height 174 cm Height 69 in Weight 110 kg Weight 242 lb BMI 36.33 What to do next Scheduled Follow-Up Appointments Wednesday 9:30 AM EST With: Tammy ALLAN MD Where: [facility] Ambulatory Visit Summary Ambulatory Visi t Summary ALESSANDRA HARDY :1960 Visit Date:02/09/2024 Ambulatory Visit Instructions Your Diagnosis Neurogenic bladder Your Care Team Attending Physician - Tammy ALLAN MD Primary Care Physician - NEVA MILLER DO This Is Your Medications List mirabegron (Myrbetriq 50 mg oral tablet, extended release) Contact prescribing physician if questions or concerns acetaminophen (acetaminophen 500 mg Tab) cholecalciferol (Vitamin D 1000 intl units (25 mcg) Tab) fludrocortisone (fludrocortisone 0.1 mg Tab) fluoxetine (Prozac 10 mg Cap) lamotrigine (Lamictal 100 mg Tab) menthol topical (menthol 1.7 mg mucous membrane lozenge) miconazole nortriptyline (nortriptyline 25 mg Cap) ocular lubricant (Artificial Tears) pantoprazole (Protonix 20 mg Tab-DR) petrolatum topical (Vicks BabyRub topical ointment) polyethylene glycol 3350 (Miralax 17 gram packet) senna (Phl-Sennosides) sodium chloride (Sodium Chloride) tacrolimus topical (tacrolimus topical 0.1% ointment) [Image Removed: STOP]Stop taking these medications ciprofloxacin (Cipro 500 mg Tab) Procedures Performed Stent removal (09/15/2022), Cystoscopic insertion of ureteric stent (05/26/2022), Cystoscopy (12/02/2021). Discharge Vitals Temperature (Temporal Artery) 37 ?C Heart Rate (Peripheral) 71 Respiratory Rate 16 Blood Pressure 119/86 Height 174 cm Height 69 in Weight 110 kg Weight 242 lb BMI 36.33 What to do next You Need to Schedule the Following Appointments Follow Up with JERRELL EVANS, Tammy Burk, URL When: Where: [facility] [address] [place] [address]- Medications What How Much When Instructions Unchanged mirabegron (Myrbetriq 50 mg oral tablet, extended release) 1 Tablets By Mouth Every day Unchanged acetaminophen (acetaminophen 500 mg Tab) By Mouth Every 6 hours Contact prescribing physician if questions or concerns Unchanged cholecalciferol (Vitamin D 1000 intl units (25 mcg) Tab) By Mouth Every day Contact prescribing physician if questions or concerns Unchanged fludrocortisone (fludrocortisone 0.1 mg Tab) By Mouth Every day Contact prescribing physician if questions or concerns Unchanged fluoxetine (Prozac 10 mg Cap) By Mouth Every day Contact prescribing physician if questions or concerns Unchanged lamotrigine (Lamictal 100 mg Tab) By Mouth 2 times a day Contact prescribing physician if questions or concerns Unchanged menthol topical (menthol 1.7 mg mucous membrane lozenge) By Mouth Every 2 hours Contact prescribing physician if questions or concerns Unchanged miconazole Buccal Every day Contact prescribing physician if questions or concerns Unchanged nortriptyline (nortriptyline 25 mg Cap) By Mouth 3 times a day Contact prescribing physician if questions or concerns Unchanged ocular lubricant (Artificial Tears) Both eyes Contact prescribing physician if questions or concerns Unchanged pantoprazole (Protonix 20 mg Tab-DR) By Mouth Every day Contact prescribing physician if questions or concerns Unchanged petrolatum topical (Vicks BabyRub topical ointment) Contact prescribing physician if questions or concerns Unchanged polyethylene glycol 3350 (Miralax 17 gram packet) By Mouth Every day Contact prescribing physician if questions or concerns Unchanged senna (Phl-Sennosides) Contact prescribing physician if questions or concerns Unchanged sodium chloride (Sodium Chloride) Contact prescribing physician if questions or concerns Unchanged tacrolimus topical (tacrolimus topical 0.1% ointment) Topical 2 times a day Contact prescribing physician if questions or concerns What How Much When Comments Stop Taking ciprofloxacin (Cipro 500 mg Tab) 1 Tablets By Mouth Every day Take 1 tablet the day before the procedure and 1 tablet after the procedure Allergies aspirin (Unknown, Unknown Reaction) Problems Ongoing - Any problem that you are currently receiving treatment for. Constipation Foreign body in bladder Hydroureter on left Mixed incontinence MS (multiple sclerosis) Neurogenic bladder Urinary retention Patient Survey You may receive a survey via text or e-mail asking about your office visit. Please share your experience with us by completing your survey. We appreciate your feedback and thank you for choosing us for your care. Education Materials Suprapubic Catheter Home Guide A suprapubic catheter is a flexible tube that is used to drain urine from the bladder into a collection bag outside the body. The catheter is inserted into the bladder through a small opening in the lower abdomen, above the pubic bone (suprapubic area) and a few inches below your belly button (navel). A tiny balloon filled with germ-free (sterile) water helps to keep the catheter in place. The collection bag must be emptied at least once a day and cleaned at least every other day. The collection bag can be put beside your bed a (more content not included)... Normal [facility] Urology Office/Clinic Noteon 02-09-2024 Urology Office/Clinic Note Urology Office/Clinic Note Chief Complaint Pt is here to discuss SP HPI Staff 64 year old female here for Poole issues/possible S/P tube placement. Previous DX: hydroureter on Lt. and neogenic bladder. S/p Cysto/left RG/ureter/bladder bx/left stent placement done 05/26/22. Dysuria: denies Incomplete bladder emptying: Has Poole Hematuria: last seen last week Leaking: denies Abdominal pain: denies Flank pain: denies History of Present Illness Tests reviewed: reviewed op note I have reviewed the previous health record information and history for this patient from Dr. Allan. I have reviewed and verified the staff HPI to be accurate for this encounter. There have been no associated fever, chills, flank pain, or blood in the urine. Denies any urinary infections since last encounter. Review of Systems PHQ Score Initial Depression Screen Score: 0 SCORE ROS - Provider Constitutional: denies weight loss, denies hot flashes. Eyes: denies eye problems. Gastrointestinal: denies nausea, denies vomiting. Cardiovascular: denies chest pain or angina. Integumentary: no dryness Musculoskeletal: denies musculoskeletal symptoms. ENMT: denies otolaryngeal symptoms. Respiratory: no shortness of breath. Heme/Lymph: denies easy bleeding tendency, denies easy bruising tendency. Psychiatric: no confusion, no anxiety. Genitourinary: See HPI. Physical Exam Vitals & Measurements T: 37 ?C(Temporal Artery) HR: 71(Peripheral) RR: 16 BP: 119/86 HT: 69 in HT: 174 cm WT: 110 kg WT: 242 lb BMI: 36.33 General Appearance: alert , no acute distress, well nourished, well developed female. Genitourinary: bladder nonpalpable, no flank pain. Assessment/Plan Pt is a resident at [facility]. Pt accompanied by an aide today. 1. Neurogenic bladder (N31.9: Neuromuscular dysfunction of bladder, unspecified) Patient has chronic poole in place, monthly changes [1] at [place]. No sample provided for UA today, pt has poole. Taking Myrbetriq 50 mg ER qd. Pt shares her crotch is sore and was told by an aide that she was raw around the cath. C/o cath being pulled on. Weighed the R/Bs of indwelling poole vs indwelling suprapubic cath. Shares she has a spastic bladder and leaks around the catheter. Counseled pt on proper poole placement/slack. Tense poole will cause bladder spasm. Pt acknowledges her understands and wishes to proceed with suprapubic cath placement. Has had three surgeries done by oven technician, at least one laparoscopic. No hx of colon surgery. Will schedule suprapubic catheter insertion. Risks and Benefits were discussed with the patient. These include bleeding, infection, pain, and need for additional procedures. Pre-op consent reviewed with and obtained from patient. Order General anesthesia. Follow-up With When Contact Information JERRELL EVANS, Tammy Burk, URL [facility] [address], [place] [address]- Additional Instructions: schedule suprapubic catheter insertion Patient Education Suprapubic Catheter Home Guide Neurogenic Bladder I, Amarilis Adkins, personally scribed for Dr. Allan on 02/09/2024 14:19:13. Documentation recorded by the scribe, Amarilis Adkins, accurately reflects the services(s) I performed and decisions made by me. Authenticated by Dr. Allan on 02/09/2024 14:22:55.. Problem List/Past Medical History Ongoing Constipation Foreign body in bladder Hydroureter on left Mixed incontinence MS (multiple sclerosis) Neurogenic bladder Urinary retention Historical No qualifying data Procedure/Surgical History Stent removal (09/15/2022), Cystoscopic insertion of ureteric stent (05/26/2022), Cystoscopy (12/02/2021). Medications acetaminophen 500 mg Tab, Oral, q6hr Artificial Tears, Eye-Both Cipro 500 mg Tab, 500 mg= 1 tab(s), Oral, Daily fludrocortisone 0.1 mg Tab, Oral, Daily Lamictal 100 mg Tab, Oral, BID menthol 1.7 mg mucous membrane lozenge, Oral, q2hr miconazole, Buccal, Daily Miralax 17 gram packet, Oral, Daily Myrbetriq 50 mg oral tablet, extended release, 50 mg= 1 tab(s), Oral, Daily, 3 refills nortriptyline 25 mg Cap, Oral, TID Phl-Sennosides Protonix 20 mg Tab-DR, Oral, Daily Prozac 10 mg Cap, Oral, Daily Sodium Chloride tacrolimus topical 0.1% ointment, Topical, BID Vicks BabyRub topical ointment Vitamin D 1000 intl units (25 mcg) Tab, Oral, Daily Allergies aspirin (Unknown, Unknown Reaction) Social History Tobacco Former smoker, quit more than 30 days ago Tobacco Use:. Never Smokeless Tobacco Use:. Cigarettes, 02/09/2024 Family History Family history is unknown Immunizations Vaccine Date Status SARS-CoV-2 (COVID-19) [id number] 04/29/2022 Recorded SARS-CoV-2 (COVID-19) mRNA-1273 vaccine 01/06/2022 Recorded SARS-CoV-2 (COVID-19) mRNA-1273 vaccine 06/11/2021 Recorded SARS-CoV-2 (COVID-19) mRNA-1273 vaccine 11/26/2020 Recorded SARS-CoV-2 (CO (more content not included)... Normal [facility] Comment on above: Result Comment: Elec tronically Signed By: Tammy ALLAN MD R\.br\Date and Time Signed: 02/09/24 14:23 EDT\.br\Electronically Co-Signed By: Amarilis Adkins\.br\Date and Time Co-Signed: 02/09/24 14:19 EDT Alanine aminotransferase [En zymatic activity/volume] in Serum or PlasmaOrdered By: Adam Lind on 10-17-2023 ALT [Catalytic activity/Vol] 11 U/L 7-52 [facility] Albumin [Mass/volume] in Ser um or Plasma by Bromocresol green (BCG) dye binding methoOrdered By: Adam Lind on 10-17-2023 Albumin BCG dye [Mass/Vol] 3.8 g/dL 3.5-5.7 [facility] Alkaline phosphatase [Enzyma tic activity/volume] in Serum or PlasmaOrdered By: Adam Lind on 10-17-2023 ALP [Catalytic activity/Vol] 97 U/L 34-104 [facility] Aspartate aminotransferase [ Enzymatic activity/volume] in Serum or PlasmaOrdered By: Adam Lind on 10-17-2023 AST [Catalytic activity/Vol] 19 U/L 13-39 [facility] Automated erythrocytes count in urine sediment (number/area)Ordered By: Adam Lind on 10-17-2023 RBC Auto (Urine sed) [#/Area] 5-9 [HPF] 0-4 [facility] Automated leukocytes count i n urine sediment (number/area)Ordered By: Adam Lind on 10-17-2023 WBC Auto (Urine sed) [#/Area] Innumerable [HPF] 0-4 [facility] Automated urine hyaline cast s count (number/volume)Ordered By: Adam Lind on 10-17-2023 Hyaline casts Auto (U) [#/Vol] 0-1 [LPF] 0-1 [facility] Automated urine sediment jonny cium oxalate crystal count by microscopy (number/high powOrdered By: Adam Lind on 10-17-2023 Calcium oxalate crystals LM.HPF (Urine sed) [#/Area] 1+ [HPF] [facility] Basophils Auto (Bld) [#/Vol] Ordered By: Adam Lind on 10-17-2023 Basophils (Bld) [#/Vol] 0.0 10*3/uL 0.0-0.2 [facility] Basophils/100 WBC Auto (Bld) Ordered By: Adam Lind on 10-17-2023 Basophils/100 WBC (Bld) 0.1 % . [facility] Bilirubin Test strip Ql (U)O rdered By: Adam Lind on 10-17-2023 Bilirubin Ql (U) Negative Negative [facility] Bilirubin.total [Mass/volume ] in Serum or PlasmaOrdered By: Adam Lind on 10-17-2023 Bilirubin [Mass/Vol] 0.5 mg/dL 0.3-1.0 [facility] Calcium [Mass/volume] in Ser um or PlasmaOrdered By: Adam Lind on 10-17-2023 Calcium [Mass/Vol] 9.2 mg/dL 8.6-10.[address] [facility] Carbon dioxide, total [Moles /volume] in Serum or PlasmaOrdered By: Adam Lind on 10-17-2023 CO2 [Moles/Vol] 28.1 mmol/L 21.0-31.0 [facility] Casts typing in urine sedime nt by light microscopyOrdered By: Adam Lind on 10-17-2023 Casts LM Nom (Urine sed) None seen [LPF] None S een [facility] Chloride [Moles/volume] in S black or PlasmaOrdered By: Adam Lind on 10-17-2023 Chloride [Moles/Vol] 100 mmol/L 98-107 [facility] Color Auto (U)Ordered By: Luis Lind on 10-17-2023 Color (U) Yellow Yellow [facility] Creatinine [Mass/volume] in Serum or PlasmaOrdered By: Adam Lind on 10-17-2023 Creatinine [Mass/Vol] 0.86 mg/dL 0.60-1.20 [facility] Eosinophils Auto (Bld) [#/Vo l]Ordered By: Adam Lind on 10-17-2023 Eosinophils (Bld) [#/Vol] 0.2 10*3/uL 0.0-0.45 [facility] Eosinophils/100 WBC Auto (Bl d)Ordered By: Adam Lind on 10-17-2023 Eosinophils/100 WBC (Bld) 1.6 % . [facility] Erythrocyte distribution wid th Auto (RBC) [Ratio]Ordered By: Adam Lind on 10-17-2023 Erythrocyte distribution width (RBC) [Ratio] 13.9 % 11.9-15.3 [facility] Globulin Calc (S) [Mass/Vol] Ordered By: Adam Lind on 10-17-2023 Globulin (S) [Mass/Vol] 4.5 g/dL [facility] Glucose [Mass/volume] in Ser um or PlasmaOrdered By: Adam Lind on 10-17-2023 Glucose [Mass/Vol] 101 mg/dL 70-[address] [facility] Comment on above: ADA recommended refe rence rangeRandom Glucose Reference Range is dependent on time and content of last meal. Glucose of more than 200 mg/dL in a nonstressed, ambulatory subject supports the diagnosis of Diabetes Mellitus. Hematocrit Auto (Bld) [Volum e fraction]Ordered By: Adam Lind on 10-17-2023 Hematocrit (Bld) [Volume fraction] 39.5 % 34.0-46.4 [facility] Hemoglobin [Mass/volume] in BloodOrdered By: Adam Lind on 10-17-2023 Hemoglobin (Bld) [Mass/Vol] 13.0 g/dL 11.8-15.4 [facility] INR in Platelet poor plasma by Coagulation assayOrdered By: Adam Lind on 10-17-2023 INR Coag (PPP) [Relative time] 1.1 {INR} [facility] Comment on above: INR Therapeutic Rang e A) Pre- and Peroperative OAT started two weeks before surgery. NOT HIP SURGERY: 1.5 - 2.5 HIP SURGERY: 2 - 3B) Primary and secondary prevention of venous THROMBOSIS: 2 - 3C) Active venous thrombosis, pulmonary embolismand prevention of recurrent venous thrombosis: 2 - 3D) Prevention of arterial thromboembolismincluding patients with mechanical heart valves: 3 - 4.5 Ketones Auto test strip (U) [Mass/Vol]Ordered By: Adam Lind on 10-17-2023 Ketones (U) [Mass/Vol] Negative Negative Fi [facility] Leukocytes [#/volume] correc tylor for nucleated erythrocytes in Blood by Automated counOrdered By: Adam Lind on 10-17-2023 WBC corrected for nucl RBC Auto (Bld) [#/Vol] 10.9 10*3/uL 3.8-11.6 [facility] Lymphocytes Auto (Bld) [#/Vo l]Ordered By: Adam Lind on 10-17-2023 Lymphocytes (Bld) [#/Vol] 0.8 10*3/uL 1.00-4.8 [facility] Lymphocytes/100 WBC Auto (Bl d)Ordered By: Adam Lind on 10-17-2023 Lymphocytes/100 WBC (Bld) 7.0 % . [facility] MCH Auto (RBC) [Entitic mass ]Ordered By: Adam Lind on 10-17-2023 MCH (RBC) [Entitic mass] 29.4 pg 24.7-34.3 [facility] MCHC Auto (RBC) [Mass/Vol]Or dered By: Adam Lind on 10-17-2023 MCHC (RBC) [Mass/Vol] 32.9 g/dL 32.0-35.0 [facility] MCV Auto (RBC) [Entitic vol] Ordered By: Adam Lind on 10-17-2023 MCV (RBC) [Entitic vol] 89.4 fL 80-100 [facility] Magnesium [Mass/volume] in S black or PlasmaOrdered By: Adam Lind on 10-17-2023 Magnesium [Mass/Vol] 1.7 mg/dL 1.9-2.7 [facility] Monocyte distribution width [Entitic volume] in Blood by AutomatedOrdered By: Adam Lind on 10-17-2023 Monocyte distribution width Auto (Bld) [Entitic vol] 26.77 % 0.00-20.00 [facility] Comment on above: For adults in ED, MD W > 20.0 may be associated with a higher risk of sepsis during the first 12 hrs of hospital admission Monocytes Auto (Bld) [#/Vol] Ordered By: Adam Lind on 10-17-2023 Monocytes (Bld) [#/Vol] 0.5 10*3/uL 0.0-0.8 [facility] Monocytes/100 WBC Auto (Bld) Ordered By: Adam Lind on 10-17-2023 Monocytes/100 WBC (Bld) 4.5 % . [facility] Natriuretic peptide B [Mass/ Vol]Ordered By: Adam Lind on 10-17-2023 Natriuretic peptide B (Bld) [Mass/Vol] 16.0 pg/mL 5-100 [facility] Neutrophils Auto (Bld) [#/Vo l]Ordered By: Adam Lind on 10-17-2023 Neutrophils (Bld) [#/Vol] 9.5 10*3/uL 1.8-7.7 [facility] Neutrophils/100 WBC Auto (Bl d)Ordered By: Adam Lind on 10-17-2023 Neutrophils/100 WBC (Bld) 86.8 % . [facility] Nitrite Test strip Ql (U)Ord ered By: Adam Lind on 10-17-2023 Nitrite Ql (U) Positive Negative [facility] No Panel InformationOrdered By: Adam Lnid on 10-17-2023 Estimated GFR (CKD-EPI) > 60.0 mL/Min [facility] Creatinine Clearance (Chem 89.04 [facility] Nucleated erythrocytes [Pres ence] in Blood by Automated countOrdered By: Adam Lind on 10-17-2023 Nucleated RBC Auto Ql (Bld) 0.1 /100{WBC} 0-0.5 [facility] Platelet mean volume Auto (B ld) [Entitic vol]Ordered By: Adam Lind on 10-17-2023 Platelet mean volume (Bld) [Entitic vol] 7.2 fL 6.3-10.7 [facility] Platelets Auto (Bld) [#/Vol] Ordered By: Adam Lind on 10-17-2023 Platelets (Bld) [#/Vol] 246 10*3/uL 150-450 [facility] Potassium [Moles/volume] in Serum or PlasmaOrdered By: Adam Lind on 10-17-2023 Potassium [Moles/Vol] 4.1 mmol/L 3.5-5.1 [facility] Protein Auto test strip (U) [Mass/Vol]Ordered By: Adam Lind on 10-17-2023 Protein (U) [Mass/Vol] Trace mg/dL Negative [facility] Protein [Mass/volume] in Ser um or PlasmaOrdered By: Adam Lind on 10-17-2023 Protein [Mass/Vol] 8.3 g/dL 6.4-8.[address] [facility] Prothrombin time (PT)Ordered By: Adam Lind on 10-17-2023 PT Coag (PPP) [Time] 12.6 s 9.0-12.9 [facility] Comment on above: A hematocrit value g reater than 55% may lead to inaccurate results in coagulation testing. Patients having hematocrit values >55% require a special collection tube for coagulation studies. Please contact the laboratory at [phone] for redraw instructions. RBC Auto (Bld) [#/Vol]Ordere d By: Adam Lind on 10-17-2023 RBC (Bld) [#/Vol] 4.41 10*6/uL 3.60-5.00 [facility] Serum or plasma albumin/glob ulin mass ratioOrdered By: Adam Lind on 10-17-2023 Albumin/Globulin [Mass ratio] 0.8 {ratio} [facility] Serum or plasma anion gap de terminationOrdered By: Adam Lind on 10-17-2023 Anion gap [Moles/Vol] 11.0 mmol/L 6.0-15.0 [facility] Sodium [Moles/volume] in Ser um or PlasmaOrdered By: Adam Lind on 10-17-2023 Sodium [Moles/Vol] 135 mmol/L 136-[address] [facility] Specific gravity Auto test s trip (U) [Rel density]Ordered By: Adam Lind on 10-17-2023 Specific gravity (U) [Rel density] 1.005 1.001-1.03 0 [facility] Squamous epithelial cells de tection in urine sediment by light microscopyOrdered By: Adam Lind on 10-17-2023 Epithelial cells.squamous LM Ql (Urine sed) 10-19 [HPF] 0-2 [facility] Troponin I.cardiac [Mass/vol ume] in Serum or Plasma by Detection limit <= 0.01 ng/Ordered By: Adam Lind on 10-17-2023 Troponin I.cardiac DL <= 0.01 ng/mL [Mass/Vol] 8.1 pg/mL 0.0-15.0 [facility] Urea nitrogen [Mass/volume] in Serum or PlasmaOrdered By: Adam Lind on 10-17-2023 Urea nitrogen [Mass/Vol] 13 mg/dL 7-25 [facility] Urine bacteria detection by automated methodOrdered By: Adam Lind on 10-17-2023 Bacteria Auto Ql (U) 4+ None Seen [facility] Urine clarity by refractomet ry automatedOrdered By: Adam Lind on 10-17-2023 Clarity Refractometry automated (U) Turbid Clear [facility] Urine culture routineOrdered By: Adam Lind on 10-17-2023 Bacteria identified Cx Nom (U) Pseudomonas aeruginosa [facility] Urine glucose measurement by automated test strip (mass/volume)Ordered By: Adam Lind on 10-17-2023 Glucose Auto test strip (U) [Mass/Vol] Normal mg/dL Normal [facility] Urine hemoglobin detection b y automated test stripOrdered By: Adam Lind on 10-17-2023 Hemoglobin Auto test strip Ql (U) 3+ Negative [facility] Urine leukocyte esterase det ection by automated test stripOrdered By: Adam Lind on 10-17-2023 Leukocyte esterase Auto test strip Ql (U) 4+ Negative [facility] Urobilinogen Auto test strip (U) [Mass/Vol]Ordered By: Adam Lind on 10-17-2023 Urobilinogen (U) [Mass/Vol] Normal mg/dL Normal [facility] WBC Auto (Bld) [#/Vol]Ordere d By: Adam Lind on 10-17-2023 WBC (Bld) [#/Vol] 10.9 10*3/uL 3.8-11.6 [facility] Yeast detection in urine sed iment by light microscopyOrdered By: Adam Lind on 10-17-2023 Yeast LM Ql (Urine sed) None seen [HPF] None Se en [facility] pH Auto test strip (U)Ordere d By: Adam Lind on 10-17-2023 pH (U) 8.0 [pH] 5.0-9.0 [facility] Creatinine (Bld) [Mass/Vol]O rdered By: Katja Botello on 08-12-2023 Creatinine [Mass/Vol] 0.9 mg/dL 0.6-1.3 [facility] Comment on above: ER/ESD physician is notified/shown all ISTAT results.Critical values may be confirmed by laboratory testing ifdeemed necessary by ER attending doctor. No Panel InformationOrdered By: Katja Botello on 08-12-2023 Bedside Estimated GFR (eGFR) > 60.0 [facility] Albumin/Protein.total in 24 hour Urine by ElectrophoresisOrdered By: Silvina Turner on 06-29-2023 Albumin Elph (24H U) [Mass fraction] 37.0 % . [facility] Gamma globulin/Protein.total in 24 hour Urine by ElectrophoresisOrdered By: Silvina Turner on 06-29-2023 Gamma globulin Elph (24H U) [Mass fraction] 29.6 % . [facility] Immunofixation for UrineOrde red By: Silvina Turner on 06-29-2023 Interpretation Immunofixation (U) [Interp] Comment: . [facility] Comment on above: Presence of monoclon al protein is unclear at this time. Suggestrepeat in 3 to 6 months if clinically indicated.Performed at: [facility] [id number] Director: Doug Olivera PhD, Phone: [phone] No Panel InformationOrdered By: Silvina Turner on 06-29-2023 Urine Random Prot Electrophor Note See comment . [facility] Comment on above: Protein electrophore sis scan will follow via computer,mail, or rotor winder delivery. Protein [Mass/volume] in Uri neOrdered By: Silvina Turner on 06-29-2023 Protein (U) [Mass/Vol] 24.5 mg/dL Not Estab. [facility] Protein.monoclonal/Protein.t otal in 24 hour Urine by ElectrophoresisOrdered By: Silvina Turner on 06-29-2023 Protein.monoclonal Elph (24H U) [Mass fraction] Not observed % Not Observed [facility] Urine alpha 1 globulin/total protein by electrophoresisOrdered By: Silvina Turner on 06-29-2023 Alpha 1 globulin Elph (U) [Mass fraction] 1.0 % . [facility] Urine alpha 2 globulin/total protein ratio by electrophoresisOrdered By: Silvina Turner on 06-29-2023 Alpha 2 globulin Elph (U) [Mass fraction] 10.5 % . [facility] Urine beta globulin measurem ent by electrophoresis (mass/volume)Ordered By: Silvina Turner on 06-29-2023 Beta globulin Elph (U) [Mass/Vol] 21.8 % . [facility] Activated partial thrombopla stin time (aPTT) in platelet poor plasma by coagulation aOrdered By: Tammy Hart on 11-21-2022 aPTT Coag (PPP) [Time] 20.4 s 25.1-36.5 [facility] Alanine aminotransferase [En zymatic activity/volume] in Serum or PlasmaOrdered By: Tammy Hart on 11-21-2022 ALT [Catalytic activity/Vol] 16 U/L 7-52 [facility] Albumin [Mass/volume] in Ser um or Plasma by Bromocresol green (BCG) dye binding methoOrdered By: Tammy Hart on 11-21-2022 Albumin BCG dye [Mass/Vol] 3.8 g/dL 3.5-5.7 [facility] Alkaline phosphatase [Enzyma tic activity/volume] in Serum or PlasmaOrdered By: Tammy Hart on 11-21-2022 ALP [Catalytic activity/Vol] 98 U/L 34-104 [facility] Aspartate aminotransferase [ Enzymatic activity/volume] in Serum or PlasmaOrdered By: Tammy Hart on 11-21-2022 AST [Catalytic activity/Vol] 18 U/L 13-39 [facility] Automated erythrocytes count in urine sediment (number/area)Ordered By: Tammy Hart on 11-21-2022 RBC Auto (Urine sed) [#/Area] 50-100 [HPF] 0-4 [facility] Automated leukocytes count i n urine sediment (number/area)Ordered By: Tammy Hart on 11-21-2022 WBC Auto (Urine sed) [#/Area] Innumerable [HPF] 0-4 [facility] Basophils Auto (Bld) [#/Vol] Ordered By: Tammy Hart on 11-21-2022 Basophils (Bld) [#/Vol] 0.1 10*3/uL 0.0-0.2 [facility] Basophils/100 WBC Auto (Bld) Ordered By: Tammy Hart on 11-21-2022 Basophils/100 WBC (Bld) 1.1 % . [facility] Bilirubin Test strip Ql (U)O rdered By: Tammy Hart on 11-21-2022 Bilirubin Ql (U) Negative Negative [facility] Bilirubin.total [Mass/volume ] in Serum or PlasmaOrdered By: Tammy Hart 11-21-2022 Bilirubin [Mass/Vol] 0.3 mg/dL 0.3-1.0 [facility] Calcium [Mass/volume] in Ser um or PlasmaOrdered By: Tammy Hart on 11-21-2022 Calcium [Mass/Vol] 8.6 mg/dL 8.6-10.[address] [facility] Carbon dioxide, total [Moles /volume] in Serum or PlasmaOrdered By: Tammy Hart on 11-21-2022 CO2 [Moles/Vol] 26.6 mmol/L 21.0-31.0 [facility] Chloride [Moles/volume] in S black or PlasmaOrdered By: Tammy Hart on 11-21-2022 Chloride [Moles/Vol] 104 mmol/L 98-107 [facility] Color Auto (U)Ordered By: Clifford Hart on 11-21-2022 Color (U) Yellow Yellow [facility] Creatinine [Mass/volume] in Serum or PlasmaOrdered By: Tammy Hart on 11-21-2022 Creatinine [Mass/Vol] 0.92 mg/dL 0.60-1.20 [facility] Eosinophils Auto (Bld) [#/Vo l]Ordered By: Tammy Hart on 11-21-2022 Eosinophils (Bld) [#/Vol] 0.4 10*3/uL 0.0-0.45 [facility] Eosinophils/100 WBC Auto (Bl d)Ordered By: Tammy Hart on 11-21-2022 Eosinophils/100 WBC (Bld) 5.3 % . [facility] Erythrocyte distribution wid th Auto (RBC) [Ratio]Ordered By: Tammy Hart on 11-21-2022 Erythrocyte distribution width (RBC) [Ratio] 14.2 % 11.9-15.3 [facility] Fungal cultureOrdered By: Clifford Hart on 11-21-2022 Fungus identified Cx Nom (Unsp spec) [facility] Genital specimen bacteria id entification by aerobic cultureOrdered By: Tammy Hart on 11-21-2022 Bacteria identified Aer cx Nom (Genital specimen) [facility] Globulin Calc (S) [Mass/Vol] Ordered By: Tammy Hart on 11-21-2022 Globulin (S) [Mass/Vol] 3.8 g/dL [facility] Glucose [Mass/volume] in Ser um or PlasmaOrdered By: Tammy Hart on 11-21-2022 Glucose [Mass/Vol] 113 mg/dL 70-[address] [facility] Comment on above: ADA recommended refe rence rangeRandom Glucose Reference Range is dependent on time and content of last meal. Glucose of more than 200 mg/dL in a nonstressed, ambulatory subject supports the diagnosis of Diabetes Mellitus. Hematocrit Auto (Bld) [Volum e fraction]Ordered By: Tammy Hart on 11-21-2022 Hematocrit (Bld) [Volume fraction] 39.1 % 34.0-46.4 [facility] Hemoglobin [Mass/volume] in BloodOrdered By: Tammy Hart on 11-21-2022 Hemoglobin (Bld) [Mass/Vol] 13.0 g/dL 11.8-15.4 [facility] Ketones Auto test strip (U) [Mass/Vol]Ordered By: Tammy Hart on 11-21-2022 Ketones (U) [Mass/Vol] Negative Negative [facility] Laboratory - CoagulationOrde red By: Tammy Hart on 11-21-2022 PT Coag (PPP) [Time] 11.2 s 9.0-12.9 [facility] Laboratory - Microbiology an d Antimicrobial susceptibilityOrdered By: Tammy Hart on 11-21-2022 C. trachomatis DNA LISA+probe Ql (Unsp spec) Negative Negative [facility] N. gonorrhoeae DNA LISA+probe Ql (Unsp spec) Negative Negative [facility] Comment on above: Performed at: [facility] [address] [id number] Director: Ely Roe MD, Phone: [phone] Laboratory - UrinalysisOrder ed By: Tammy Hart on 11-21-2022 Hyaline casts LM Ql (Urine sed) 0-8 [LPF] 0-8 [facility] Leukocytes [#/volume] correc tylor for nucleated erythrocytes in Blood by Automated counOrdered By: Tammy Hart on 11-21-2022 WBC corrected for nucl RBC Auto (Bld) [#/Vol] 7.5 10*3/uL 3.8-11.6 [facility] Lymphocytes Auto (Bld) [#/Vo l]Ordered By: Tammy Hart on 11-21-2022 Lymphocytes (Bld) [#/Vol] 2.2 10*3/uL 1.00-4.8 [facility] Lymphocytes/100 WBC Auto (Bl d)Ordered By: Tammy Hart on 11-21-2022 Lymphocytes/100 WBC (Bld) 29.1 % . [facility] MCH Auto (RBC) [Entitic mass ]Ordered By: Tammy Hart on 11-21-2022 MCH (RBC) [Entitic mass] 29.7 pg 24.7-34.3 [facility] MCHC Auto (RBC) [Mass/Vol]Or dered By: Tammy Hart on 11-21-2022 MCHC (RBC) [Mass/Vol] 33.3 g/dL 32.0-35.0 [facility] MCV Auto (RBC) [Entitic vol] Ordered By: Tammy Hart on 11-21-2022 MCV (RBC) [Entitic vol] 89.3 fL 80-100 [facility] Monocyte distribution width [Entitic volume] in Blood by AutomatedOrdered By: Tammy Hart on 11-21-2022 Monocyte distribution width Auto (Bld) [Entitic vol] 19.12 % 0.00-20.00 [facility] Monocytes Auto (Bld) [#/Vol] Ordered By: Tammy Hart on 11-21-2022 Monocytes (Bld) [#/Vol] 0.4 10*3/uL 0.0-0.8 [facility] Monocytes/100 WBC Auto (Bld) Ordered By: Tammy Hart on 11-21-2022 Monocytes/100 WBC (Bld) 5.7 % . [facility] Neutrophils Auto (Bld) [#/Vo l]Ordered By: Tammy Hart on 11-21-2022 Neutrophils (Bld) [#/Vol] 4.4 10*3/uL 1.8-7.7 [facility] Neutrophils/100 WBC Auto (Bl d)Ordered By: Tammy Hart on 11-21-2022 Neutrophils/100 WBC (Bld) 58.8 % . [facility] Nitrite Test strip Ql (U)Ord ered By: Tammy Hart on 11-21-2022 Nitrite Ql (U) Negative Negative [facility] No Panel InformationOrdered By: Tammy Hart on 11-21-2022 Estimated GFR (CKD-EPI) > 60.0 mL/Min [facility] Creatinine Clearance (Chem 84.06 [facility] Nucleated erythrocytes [Pres ence] in Blood by Automated countOrdered By: Tammy Hart on 11-21-2022 Nucleated RBC Auto Ql (Bld) 0.1 /100{WBC} 0-0.5 [facility] Platelet mean volume Auto (B ld) [Entitic vol]Ordered By: Tammy Hart on 11-21-2022 Platelet mean volume (Bld) [Entitic vol] 7.2 fL 6.3-10.7 [facility] Platelet poor plasma interna tional normalized ratio (INR) by coagulation assay (relatOrdered By: Tammy Hart on 11-21-2022 INR Coag (PPP) [Relative time] 1.0 {INR} [facility] Comment on above: INR Therapeutic Rang e A) Pre- and Peroperative OAT started two weeks before surgery. NOT HIP SURGERY: 1.5 - 2.5 HIP SURGERY: 2 - 3B) Primary and secondary prevention of venous THROMBOSIS: 2 - 3C) Active venous thrombosis, pulmonary embolismand prevention of recurrent venous thrombosis: 2 - 3D) Prevention of arterial thromboembolismincluding patients with mechanical heart valves: 3 - 4.5 Platelets Auto (Bld) [#/Vol] Ordered By: Tammy Hart on 11-21-2022 Platelets (Bld) [#/Vol] 249 10*3/uL 150-450 [facility] Potassium [Moles/volume] in Serum or PlasmaOrdered By: Tammy Hart on 11-21-2022 Potassium [Moles/Vol] 4.0 mmol/L 3.5-5.1 [facility] Protein Auto test strip (U) [Mass/Vol]Ordered By: Tammy Hart on 11-21-2022 Protein (U) [Mass/Vol] 100 mg/dL Negative [facility] Protein [Mass/volume] in Ser um or PlasmaOrdered By: Tammy Hart on 11-21-2022 Protein [Mass/Vol] 7.6 g/dL 6.4-8.[address] [facility] RBC Auto (Bld) [#/Vol]Ordere d By: Tammy Hart on 11-21-2022 RBC (Bld) [#/Vol] 4.38 10*6/uL 3.60-5.00 [facility] Serum or plasma albumin/glob ulin mass ratioOrdered By: Tammy Hart on 11-21-2022 Albumin/Globulin [Mass ratio] 1.0 {ratio} [facility] Serum or plasma anion gap de terminationOrdered By: Tammy Hart on 11-21-2022 Anion gap [Moles/Vol] 11.4 mmol/L 6.0-15.0 [facility] Sodium [Moles/volume] in Ser um or PlasmaOrdered By: Tammy Hart on 11-21-2022 Sodium [Moles/Vol] 138 mmol/L 136-[address] [facility] Specific gravity Auto test s trip (U) [Rel density]Ordered By: Tammy Hart on 11-21-2022 Specific gravity (U) [Rel density] 1.014 1.001-1.03 0 [facility] Squamous epithelial cells de tection in urine sediment by light microscopyOrdered By: Tammy Hart on 11-21-2022 Epithelial cells.squamous LM Ql (Urine sed) 3-4 [HPF] 0-2 [facility] Trichomonas vaginalis detect ion by wet preparationOrdered By: Tammy Hart on 11-21-2022 T. vaginalis Wet prep Ql (Unsp spec) [facility] Urea nitrogen [Mass/volume] in Serum or PlasmaOrdered By: Tammy Hart 11-21-2022 Urea nitrogen [Mass/Vol] 24 mg/dL 7-25 [facility] Urine bacteria detection by automated methodOrdered By: Tammy Hart on 11-21-2022 Bacteria Auto Ql (U) 3+ None Seen [facility] Urine clarity by refractomet ry automatedOrdered By: Tammy Hart 11-21-2022 Clarity Refractometry automated (U) Turbid Clear [facility] Urine culture routineOrdered By: Tammy Hart on 11-21-2022 Bacteria identified Cx Nom (U) Klebsiella pneumoniae [facility] Bacteria identified Cx Nom (U) Klebsiella pneumoniae#2 [facility] Urine glucose measurement by automated test strip (mass/volume)Ordered By: Tammy Hart on 11-21-2022 Glucose Auto test strip (U) [Mass/Vol] Normal mg/dL Normal [facility] Urine hemoglobin detection b y automated test stripOrdered By: Tammy Hart on 11-21-2022 Hemoglobin Auto test strip Ql (U) 2+ Negative [facility] Urine leukocyte esterase det ection by automated test stripOrdered By: Tammy Hart on 11-21-2022 Leukocyte esterase Auto test strip Ql (U) 4+ Negative [facility] Urobilinogen Auto test strip (U) [Mass/Vol]Ordered By: Tammy Hart on 11-21-2022 Urobilinogen (U) [Mass/Vol] Normal mg/dL Normal [facility] WBC Auto (Bld) [#/Vol]Ordere d By: Tammy Hart on 11-21-2022 WBC (Bld) [#/Vol] 7.5 10*3/uL 3.8-11.[address] [facility] Yeast detection in urine sed iment by light microscopyOrdered By: Tammy Hart on 11-21-2022 Yeast LM Ql (Urine sed) N/A [facility] pH Auto test strip (U)Ordere d By: Tammy Hart on 11-21-2022 pH (U) 7.5 [pH] 5.0-9.0 [facility] Creatinine (Bld) [Mass/Vol]O rdered By: Katja Botlelo on 09-21-2022 Creatinine [Mass/Vol] 1.0 mg/dL 0.6-1.3 [facility] Comment on above: ER/ESD physician is notified/shown all ISTAT results.Critical values may be confirmed by laboratory testing ifdeemed necessary by ER attending doctor. No Panel InformationOrdered By: Katja Botello on 09-21-2022 POC Estimated GFR > 60 [facility] Comment on above: GFR estimated refere nce range: According to KDOQI guidelines, <60 ml/min/1.73m2 is sufficient to diagnose a patient with chronic kidney disease. POC Estimated GFR Non- Amer 56 [facility] Albumin [Mass/volume] in Ser um or PlasmaOrdered By: Silvina Turner on 06-30-2022 Albumin [Mass/Vol] 3.0 g/dL 3.2-5.[address] [facility] Albumin/Protein.total in 24 hour Urine by ElectrophoresisOrdered By: Silvina Turner on 06-30-2022 Albumin Elph (24H U) [Mass fraction] 41.2 % . [facility] Basophils Auto (Bld) [#/Vol] Ordered By: Silvina Turner on 06-30-2022 Basophils (Bld) [#/Vol] 0.1 10*3/uL 0.0-0.2 [facility] Basophils/100 WBC Auto (Bld) Ordered By: Silvina Turner on 06-30-2022 Basophils/100 WBC (Bld) 1.0 % . [facility] Creatinine and Glomerular fi ltration rate.predicted panel (S/P/Bld)Ordered By: Silvina Turner on 06-30-2022 Creatinine [Mass/Vol] 0.98 mg/dL 0.44-1.03 [facility] Eosinophils Auto (Bld) [#/Vo l]Ordered By: Silvina Turner on 06-30-2022 Eosinophils (Bld) [#/Vol] 0.5 10*3/uL 0.0-0.45 [facility] Eosinophils/100 WBC Auto (Bl d)Ordered By: Silvina Turner on 06-30-2022 Eosinophils/100 WBC (Bld) 8.7 % . [facility] Erythrocyte distribution wid th Auto (RBC) [Ratio]Ordered By: Silvina Turner on 06-30-2022 Erythrocyte distribution width (RBC) [Ratio] 13.3 % 11.9-15.3 [facility] Estimated glomerular filtrat ion rate (GFR) non- AmericanOrdered By: Silvina Turner on 06-30-2022 GFR/1.73 sq M.predicted among non-blacks MDRD (S/P/Bld) [Vol rate/Area] 58 mL/Min [facility] Gamma globulin/Protein.total in 24 hour Urine by ElectrophoresisOrdered By: Silvina Turner on 06-30-2022 Gamma globulin Elph (24H U) [Mass fraction] 18.3 % . [facility] Globulin Calc (S) [Mass/Vol] Ordered By: Silvina Turner on 06-30-2022 Globulin (S) [Mass/Vol] 3.5 g/dL F [facility] Hematocrit Auto (Bld) [Volum e fraction]Ordered By: Silvina Turner on 06-30-2022 Hematocrit (Bld) [Volume fraction] 36.7 % 34.0-46.4 [facility] Hemoglobin [Mass/volume] in BloodOrdered By: Silvina Turner on 06-30-2022 Hemoglobin (Bld) [Mass/Vol] 12.1 g/dL 11.8-15.4 [facility] IgA [Mass/volume] in Serum o r PlasmaOrdered By: Silvina Turner on 06-30-2022 IgA [Mass/Vol] 588 mg/dL 87-352 [facility] IgG [Mass/volume] in Serum o r PlasmaOrdered By: Silvina Turner on 06-30-2022 IgG [Mass/Vol] 1448 mg/dL 586-1602 [facility] IgM [Mass/volume] in Serum o r PlasmaOrdered By: Silvina Turner on 06-30-2022 IgM [Mass/Vol] 146 mg/dL 26-217 [facility] Comment on above: Performed at: [employer] [facility] [address] [id number] Director: Doug Olivera PhD, Phone: [phone] Immunofixation for UrineOrde red By: Silvina Turner on 06-30-2022 Interpretation Immunofixation (U) [Interp] See comment . [facility] Comment on above: No monoclonality det ected.Performed at: [facility] [address] [id number] Director: Doug Olivera PhD, Phone: [phone] Immunoglobulin light chains. kappa.free [Mass/volume] in SerumOrdered By: Silvina Turner on 06-30-2022 Immunoglobulin light chains.kappa.free (S) [Mass/Vol] 68.4 mg/L 3.3-19.4 [facility] Immunoglobulin light chains. kappa.free/Immunoglobulin light chains.lambda.free [MassOrdered By: Silvina Turner on 06-30-2022 Immunoglobulin light chains.kappa.free/Immuno globulin light chains.lambda.free (S) [Mass ratio] 1.71 0.26-1.65 [facility] Comment on above: Performed at: [address] [id number] Director: Doug Olivera PhD, Phone: [phone] Immunoglobulin light chains. lambda.free [Mass/volume] in Serum or PlasmaOrdered By: Silvina Turner on 06-30-2022 Immunoglobulin light chains.lambda.free [Mass/Vol] 39.9 mg/L 5.7-26.3 [facility] Laboratory - Hematology and Cell countsOrdered By: Silvina Turner on 06-30-2022 Nucleated RBC/100 WBC (Bld) [Ratio] 0.0 % 0-0.5 [facility] Leukocytes [#/volume] in Blo od by Automated countOrdered By: Silvina Turner on 06-30-2022 WBC (Bld) [#/Vol] 5.3 10*3/uL 4.5-11.[address] [facility] Lymphocytes Auto (Bld) [#/Vo l]Ordered By: Silvina Turner on 06-30-2022 Lymphocytes (Bld) [#/Vol] 1.6 10*3/uL 1.00-4.8 [facility] Lymphocytes/100 WBC Auto (Bl d)Ordered By: Silvina Turner on 06-30-2022 Lymphocytes/100 WBC (Bld) 31.0 % . [facility] MCH Auto (RBC) [Entitic mass ]Ordered By: Silvina Turner on 06-30-2022 MCH (RBC) [Entitic mass] 29.5 pg 24.7-34.3 [facility] MCHC Auto (RBC) [Mass/Vol]Or dered By: Silvina Turner on 06-30-2022 MCHC (RBC) [Mass/Vol] 32.8 g/dL 32.0-35.0 [facility] MCV Auto (RBC) [Entitic vol] Ordered By: Silvina Turner on 06-30-2022 MCV (RBC) [Entitic vol] 89.8 fL 80-100 F [facility] Monocytes Auto (Bld) [#/Vol] Ordered By: Silvina Turner on 06-30-2022 Monocytes (Bld) [#/Vol] 0.4 10*3/uL 0.0-0.8 [facility] Monocytes/100 WBC Auto (Bld) Ordered By: Silvina Turner on 06-30-2022 Monocytes/100 WBC (Bld) 7.5 % . [facility] Neutrophils Auto (Bld) [#/Vo l]Ordered By: Silvina Turner on 06-30-2022 Neutrophils (Bld) [#/Vol] 2.7 10*3/uL 1.8-7.7 [facility] Neutrophils/100 WBC Auto (Bl d)Ordered By: Silvina Turner on 06-30-2022 Neutrophils/100 WBC (Bld) 51.8 % . [facility] No Panel InformationOrdered By: Silvina Turner on 06-30-2022 Estimated GFR () > 60 mL/Min [facility] Comment on above: GFR estimated refere nce range: According to KDOQI guidelines, <60 ml/min/1.73m2 is sufficient to diagnose a patient with chronic kidney disease. Pharmacy Creatinine Clearance (Chem N/A [facility] Urine Random Prot Electrophor Note See comment . [facility] Comment on above: Protein electrophore sis scan will follow via computer,mail, or rotor winder delivery.Performed at: [facility] [id number] Director: Doug Olivera PhD, Phone: [phone] Platelet mean volume Auto (B ld) [Entitic vol]Ordered By: Silvina Turner on 06-30-2022 Platelet mean volume (Bld) [Entitic vol] 7.4 fL 6.3-10.7 [facility] Platelets Auto (Bld) [#/Vol] Ordered By: Silvina Turner on 06-30-2022 Platelets (Bld) [#/Vol] 271 10*3/uL 150-450 [facility] Protein [Mass/volume] in Ser um or PlasmaOrdered By: Silvina Turner on 06-30-2022 Protein [Mass/Vol] 6.5 g/dL 6.1-7.[address] [facility] Protein [Mass/volume] in Uri neOrdered By: Silvina Turner on 06-30-2022 Protein (U) [Mass/Vol] 595.6 mg/dL Not Estab. F [facility] Comment on above: Results confirmed on dilution. Protein.monoclonal/Protein.t otal in 24 hour Urine by ElectrophoresisOrdered By: Silvina Turner on 06-30-2022 Protein.monoclonal Elph (24H U) [Mass fraction] Comment: % Not Observed [facility] Comment on above: ASYMMETRICAL BETA RBC Auto (Bld) [#/Vol]Ordere d By: Silvina Turner on 06-30-2022 RBC (Bld) [#/Vol] 4.09 10*6/uL 3.60-5.00 [facility] Serum or plasma alanine le otransferase measurement without P-5'-P (enzymatic activiOrdered By: Silvina Turner on 06-30-2022 ALT No additional P-5'-P [Catalytic activity/Vol] 13 U/L 10-60 [facility] Serum or plasma albumin/glob ulin mass ratioOrdered By: Silvina Turner on 06-30-2022 Albumin/Globulin [Mass ratio] 0.9 {ratio} [facility] Serum or plasma alkaline amos sphatase measurement (enzymatic activity/volume)Ordered By: Silvina Turner on 06-30-2022 ALP [Catalytic activity/Vol] 87 U/L 32-92 [facility] Serum or plasma anion gap de terminationOrdered By: Silvina Turner on 06-30-2022 Anion gap [Moles/Vol] 11.1 mmol/L 6.0-15.0 [facility] Serum or plasma aspartate am inotransferase measurement (enzymatic activity/volume)Ordered By: Silvina Turner on 06-30-2022 AST [Catalytic activity/Vol] 20 U/L 10-42 [facility] Serum or plasma calcium jose urement (mass/volume)Ordered By: Silvina Turner on 06-30-2022 Calcium [Mass/Vol] 8.7 mg/dL 8.2-10.[address] [facility] Serum or plasma chloride ja surement (moles/volume)Ordered By: Silvina Turner on 06-30-2022 Chloride [Moles/Vol] 104 mmol/L 95-114 [facility] Serum or plasma glucose jose urement (mass/volume)Ordered By: Silvina Turner on 06-30-2022 Glucose [Mass/Vol] 95 mg/dL 70-[address] [facility] Comment on above: ADA recommended refe rence rangeRandom Glucose Reference Range is dependent on time and content of last meal. Glucose of more than 200 mg/dL in a nonstressed, ambulatory subject supports the diagnosis of Diabetes Mellitus. Serum or plasma potassium me asurement (moles/volume)Ordered By: Silvina Turner on 06-30-2022 Potassium [Moles/Vol] 4.6 mmol/L 3.5-5.1 [facility] Serum or plasma sodium measu rement (moles/volume)Ordered By: Silvina Turner on 06-30-2022 Sodium [Moles/Vol] 139 mmol/L 136-[address] [facility] Serum or plasma total biliru bin measurement (mass/volume)Ordered By: Silvina Turner on 06-30-2022 Bilirubin [Mass/Vol] 0.5 mg/dL 0.3-1.2 [facility] Serum or plasma total carbon dioxide measurement (moles/volume)Ordered By: Silvina Turner on 06-30-2022 CO2 [Moles/Vol] 28.5 mmol/L 22.0-30.0 [facility] Serum or plasma urea nitroge n measurement (mass/volume)Ordered By: Silvina Turner on 06-30-2022 Urea nitrogen [Mass/Vol] 16 mg/dL 9-23 [facility] Urine alpha 1 globulin/total protein by electrophoresisOrdered By: Silvina Turner on 06-30-2022 Alpha 1 globulin Elph (U) [Mass fraction] 4.2 % . [facility] Urine alpha 2 globulin/total protein ratio by electrophoresisOrdered By: Silvina Turner on 06-30-2022 Alpha 2 globulin Elph (U) [Mass fraction] 10.3 % . [facility] Urine beta globulin measurem ent by electrophoresis (mass/volume)Ordered By: Silvina Turner on 06-30-2022 Beta globulin Elph (U) [Mass/Vol] 26.1 % . [facility] Automated erythrocytes count in urine sediment (number/area)Ordered By: Ricardo Casanova on 06-29-2022 RBC Auto (Urine sed) [#/Area] Innumerable [HPF] 0-4 [facility] Automated leukocytes count i n urine sediment (number/area)Ordered By: Ricardo Casanova on 06-29-2022 WBC Auto (Urine sed) [#/Area] Innumerable [HPF] 0-4 [facility] Automated urine hyaline cast s count (number/volume)Ordered By: Ricardo Casanova on 06-29-2022 Hyaline casts Auto (U) [#/Vol] None seen [LPF] 0-1 [facility] Bilirubin Test strip Ql (U)O rdered By: Ricardo Casanova on 06-29-2022 Bilirubin Ql (U) Negative Negative [facility] Casts typing in urine sedime nt by light microscopyOrdered By: Ricardo Casanova on 06-29-2022 Casts LM Nom (Urine sed) None seen [LPF] None S een [facility] Color Auto (U)Ordered By: Meng Casanova on 06-29-2022 Color (U) [place] Yellow [facility] Ketones Auto test strip (U) [Mass/Vol]Ordered By: Ricardo Casanova on 06-29-2022 Ketones (U) [Mass/Vol] Negative Negative [facility] Nitrite Test strip Ql (U)Ord ered By: Ricardo Casanova on 06-29-2022 Nitrite Ql (U) Positive Negative [facility] Protein Auto test strip (U) [Mass/Vol]Ordered By: Ricardo Casanova on 06-29-2022 Protein (U) [Mass/Vol] 100 mg/dL Negative [facility] Specific gravity Auto test s trip (U) [Rel density]Ordered By: Ricardo Casanova on 06-29-2022 Specific gravity (U) [Rel density] 1.016 1.001-1.03 0 [facility] Squamous epithelial cells de tection in urine sediment by light microscopyOrdered By: Ricardo Casanova on 06-29-2022 Epithelial cells.squamous LM Ql (Urine sed) 10-19 [HPF] 0-2 [facility] Urine bacteria detection by automated methodOrdered By: Ricardo Casanova on 06-29-2022 Bacteria Auto Ql (U) 1+ None Seen [facility] Urine clarity by refractomet ry automatedOrdered By: Ricardo Casanova on 06-29-2022 Clarity Refractometry automated (U) Turbid Clear [facility] Urine culture routineOrdered By: Ricardo Casanova on 06-29-2022 Bacteria identified Cx Nom (U) Proteus mirabilis (ESBL) [facility] Urine glucose measurement by automated test strip (mass/volume)Ordered By: Ricardo Casanova on 06-29-2022 Glucose Auto test strip (U) [Mass/Vol] Normal mg/dL Normal [facility] Urine hemoglobin detection b y automated test stripOrdered By: Ricardo Casanova on 06-29-2022 Hemoglobin Auto test strip Ql (U) 3+ Negative [facility] Urine leukocyte esterase det ection by automated test stripOrdered By: Ricardo Casanova on 06-29-2022 Leukocyte esterase Auto test strip Ql (U) 4+ Negative [facility] Urobilinogen Auto test strip (U) [Mass/Vol]Ordered By: Ricardo Casanova on 06-29-2022 Urobilinogen (U) [Mass/Vol] Normal mg/dL Normal [facility] Yeast detection in urine sed iment by light microscopyOrdered By: Ricardo Casanova on 06-29-2022 Yeast LM Ql (Urine sed) None seen [HPF] None Se en [facility] pH Auto test strip (U)Ordere d By: Ricardo Casanova on 06-29-2022 pH (U) 7.0 [pH] 5.0-9.0 [facility] Albumin/Protein.total in 24 hour Urine by ElectrophoresisOrdered By: Silvina Turner on 05-27-2022 Albumin Elph (24H U) [Mass fraction] 46.8 % . [facility] Gamma globulin/Protein.total in 24 hour Urine by ElectrophoresisOrdered By: Silvina Turner on 05-27-2022 Gamma globulin Elph (24H U) [Mass fraction] 21.5 % . [facility] Immunofixation for UrineOrde red By: Silvina Turner on 05-27-2022 Interpretation Immunofixation (U) [Interp] See comment . [facility] Comment on above: No monoclonality det ected.Performed at: - [facility] [id number] [place], [place] [id number] Director: Doug Olivera PhD, Phone: [phone] No Panel InformationOrdered By: Silvina Turner on 05-27-2022 Urine Random Prot Electrophor Note See comment . [facility] Comment on above: Protein electrophore sis scan will follow via computer,mail, or rotor winder delivery. Protein [Mass/volume] in Uri neOrdered By: Silvina Turner on 05-27-2022 Protein (U) [Mass/Vol] 284.8 mg/dL Not Estab. F [facility] Comment on above: Results confirmed on dilution. Protein.monoclonal/Protein.t otal in 24 hour Urine by ElectrophoresisOrdered By: Silvina Turner on 05-27-2022 Protein.monoclonal Elph (24H U) [Mass fraction] Not observed % Not Observed [facility] Urine alpha 1 globulin/total protein by electrophoresisOrdered By: Silvina Turner on 05-27-2022 Alpha 1 globulin Elph (U) [Mass fraction] 2.6 % . [facility] Urine alpha 2 globulin/total protein ratio by electrophoresisOrdered By: Silvina Turner on 05-27-2022 Alpha 2 globulin Elph (U) [Mass fraction] 7.4 % . [facility] Urine beta globulin measurem ent by electrophoresis (mass/volume)Ordered By: Silvina Turner on 05-27-2022 Beta globulin Elph (U) [Mass/Vol] 21.7 % . [facility] Basophils Auto (Bld) [#/Vol] Ordered By: Tammy Allan on 05-12-2022 Basophils (Bld) [#/Vol] 0.0 10*3/uL 0.0-0.2 [facility] Basophils/100 WBC Auto (Bld) Ordered By: Tammy Allan on 05-12-2022 Basophils/100 WBC (Bld) 0.6 % . [facility] Creatinine and Glomerular fi ltration rate.predicted panel (S/P/Bld)Ordered By: Tammy Allan on 05-12-2022 Creatinine [Mass/Vol] 0.93 mg/dL 0.44-1.03 [facility] Eosinophils Auto (Bld) [#/Vo l]Ordered By: Tammy Allan on 05-12-2022 Eosinophils (Bld) [#/Vol] 0.4 10*3/uL 0.0-0.45 [facility] Eosinophils/100 WBC Auto (Bl d)Ordered By: Tammy Allan on 05-12-2022 Eosinophils/100 WBC (Bld) 7.4 % . [facility] Erythrocyte distribution wid th Auto (RBC) [Ratio]Ordered By: Tammy Allan on 05-12-2022 Erythrocyte distribution width (RBC) [Ratio] 13.1 % 11.9-15.3 [facility] Estimated glomerular filtrat ion rate (GFR) non- AmericanOrdered By: Tammy Allan on 05-12-2022 GFR/1.73 sq M.predicted among non-blacks MDRD (S/P/Bld) [Vol rate/Area] > 60 mL/Min [facility] Hematocrit Auto (Bld) [Volum e fraction]Ordered By: Tammy Allan on 05-12-2022 Hematocrit (Bld) [Volume fraction] 38.5 % 34.0-46.4 [facility] Hemoglobin [Mass/volume] in BloodOrdered By: Tammy Allan on 05-12-2022 Hemoglobin (Bld) [Mass/Vol] 12.9 g/dL 11.8-15.4 [facility] Laboratory - Hematology and Cell countsOrdered By: Tammy Allan on 05-12-2022 Nucleated RBC/100 WBC (Bld) [Ratio] 0.1 % 0-0.5 [facility] Leukocytes [#/volume] in Blo od by Automated countOrdered By: Tammy Allan on 05-12-2022 WBC (Bld) [#/Vol] 5.5 10*3/uL 4.5-11.[address] [facility] Lymphocytes Auto (Bld) [#/Vo l]Ordered By: Tammy Allan on 05-12-2022 Lymphocytes (Bld) [#/Vol] 1.9 10*3/uL 1.00-4.8 [facility] Lymphocytes/100 WBC Auto (Bl d)Ordered By: Tammy Allan on 05-12-2022 Lymphocytes/100 WBC (Bld) 34.2 % . [facility] MCH Auto (RBC) [Entitic mass ]Ordered By: Tammy Allan on 05-12-2022 MCH (RBC) [Entitic mass] 30.1 pg 24.7-34.3 [facility] MCHC Auto (RBC) [Mass/Vol]Or dered By: Tammy Allan on 05-12-2022 MCHC (RBC) [Mass/Vol] 33.4 g/dL 32.0-35.0 [facility] MCV Auto (RBC) [Entitic vol] Ordered By: Tammy Allan on 05-12-2022 MCV (RBC) [Entitic vol] 90.1 fL 80-100 [facility] Monocytes Auto (Bld) [#/Vol] Ordered By: Tammy Allan on 05-12-2022 Monocytes (Bld) [#/Vol] 0.4 10*3/uL 0.0-0.8 [facility] Monocytes/100 WBC Auto (Bld) Ordered By: Tammy Allan on 05-12-2022 Monocytes/100 WBC (Bld) 7.4 % . [facility] Neutrophils Auto (Bld) [#/Vo l]Ordered By: Tammy Allan on 05-12-2022 Neutrophils (Bld) [#/Vol] 2.8 10*3/uL 1.8-7.7 [facility] Neutrophils/100 WBC Auto (Bl d)Ordered By: Tammy Allan on 05-12-2022 Neutrophils/100 WBC (Bld) 50.4 % . [facility] No Panel InformationOrdered By: Tammy Allan on 05-12-2022 Estimated GFR () > 60 mL/Min [facility] Comment on above: GFR estimated refere nce range: According to KDOQI guidelines, <60 ml/min/1.73m2 is sufficient to diagnose a patient with chronic kidney disease. Pharmacy Creatinine Clearance (Chem N/A [facility] Platelet mean volume Auto (B ld) [Entitic vol]Ordered By: Tammy Allan on 05-12-2022 Platelet mean volume (Bld) [Entitic vol] 7.1 fL 6.3-10.7 [facility] Platelets Auto (Bld) [#/Vol] Ordered By: Tammy Allan on 05-12-2022 Platelets (Bld) [#/Vol] 313 10*3/uL 150-450 [facility] RBC Auto (Bld) [#/Vol]Ordere d By: Tammy Allan on 05-12-2022 RBC (Bld) [#/Vol] 4.28 10*6/uL 3.60-5.00 [facility] Serum or plasma anion gap de terminationOrdered By: Tammy Allan on 05-12-2022 Anion gap [Moles/Vol] 14.5 mmol/L 6.0-15.0 [facility] Serum or plasma calcium jose urement (mass/volume)Ordered By: Tammy Allan on 05-12-2022 Calcium [Mass/Vol] 9.2 mg/dL 8.2-10.[address] [facility] Serum or plasma chloride ja surement (moles/volume)Ordered By: Tammy Allan on 05-12-2022 Chloride [Moles/Vol] 100 mmol/L 95-114 [facility] Serum or plasma glucose jose urement (mass/volume)Ordered By: Tammy Allan on 05-12-2022 Glucose [Mass/Vol] 88 mg/dL 70-[address] [facility] Comment on above: ADA recommended refe rence rangeRandom Glucose Reference Range is dependent on time and content of last meal. Glucose of more than 200 mg/dL in a nonstressed, ambulatory subject supports the diagnosis of Diabetes Mellitus. Serum or plasma potassium me asurement (moles/volume)Ordered By: Tammy Allan on 05-12-2022 Potassium [Moles/Vol] 4.8 mmol/L 3.5-5.1 [facility] Serum or plasma sodium measu rement (moles/volume)Ordered By: Tammy Allan on 05-12-2022 Sodium [Moles/Vol] 139 mmol/L 136-[address] [facility] Serum or plasma total carbon dioxide measurement (moles/volume)Ordered By: Tammy Allan on 05-12-2022 CO2 [Moles/Vol] 29.3 mmol/L 22.0-30.0 [facility] Serum or plasma urea nitroge n measurement (mass/volume)Ordered By: Tammy Allan on 05-12-2022 Urea nitrogen [Mass/Vol] 15 mg/dL 04-24 [facility] Creatinine and Glomerular fi ltration rate.predicted panel (S/P/Bld)Ordered By: Tammy Allan on 03-27-2022 Creatinine [Mass/Vol] 1.07 mg/dL 0.44-1.03 [facility] Estimated glomerular filtrat ion rate (GFR) non- AmericanOrdered By: Tammy Allan on 03-27-2022 GFR/1.73 sq M.predicted among non-blacks MDRD (S/P/Bld) [Vol rate/Area] 52 mL/Min [facility] No Panel InformationOrdered By: Tammy Allan on 03-27-2022 Estimated GFR () > 60 mL/Min [facility] Comment on above: GFR estimated refere nce range: According to KDOQI guidelines, <60 ml/min/1.73m2 is sufficient to diagnose a patient with chronic kidney disease. Pharmacy Creatinine Clearance (Chem N/A [facility] Serum or plasma urea nitroge n measurement (mass/volume)Ordered By: Tammy Allan on 03-27-2022 Urea nitrogen [Mass/Vol] 16 mg/dL 04-24 [facility] Creatinine [Mass/volume] in UrineOrdered By: Silvina Turner on 12-30-2021 Creatinine (U) [Mass/Vol] 56.7 mg/dL [facility] Comment on above: No reference range e stablished IgA [Mass/volume] in Serum o r PlasmaOrdered By: Silvina Turner on 12-24-2021 IgA [Mass/Vol] 659 mg/dL [facility] IgG [Mass/volume] in Serum o r PlasmaOrdered By: Silvina Turner on 12-24-2021 IgG [Mass/Vol] 1961 mg/dL [facility] IgM [Mass/volume] in Serum o r PlasmaOrdered By: Silvina Turner on 12-24-2021 IgM [Mass/Vol] 142 mg/dL [facility] Comment on above: Performed at: [address] [id number] [place] Clerk: Doug Olivera PhD, Phone: [phone] Immunoglobulin light chains. kappa.free [Mass/volume] in SerumOrdered By: Silvina Turner on 12-24-2021 Immunoglobulin light chains.kappa.free (S) [Mass/Vol] 68.3 mg/L [facility] Immunoglobulin light chains. kappa.free/Immunoglobulin light chains.lambda.free [MassOrdered By: Silvina Turner on 12-24-2021 Immunoglobulin light chains.kappa.free/Immuno globulin light chains.lambda.free (S) [Mass ratio] 2.07 [facility] Comment on above: Performed at: [facility] [address] [id number] [place] Clerk: Doug Olivera PhD, Phone: [phone] Immunoglobulin light chains. lambda.free [Mass/volume] in Serum or PlasmaOrdered By: Silvina Turner on 12-24-2021 Immunoglobulin light chains.lambda.free [Mass/Vol] 33.0 mg/L [facility] Albumin [Mass/volume] in Ser um or PlasmaOrdered By: Neva Miller on 10-17-2021 Albumin [Mass/Vol] 3.6 g/dL [facility] Immunoglobulin light chains. kappa.free [Mass/volume] in SerumOrdered By: Neav Miller on 10-17-2021 Immunoglobulin light chains.kappa.free (S) [Mass/Vol] 105.0 mg/L [facility] Immunoglobulin light chains. kappa.free/Immunoglobulin light chains.lambda.free [MassOrdered By: Neva Miller on 10-17-2021 Immunoglobulin light chains.kappa.free/Immuno globulin light chains.lambda.free (S) [Mass ratio] 2.12 [facility] Comment on above: Performed at: [facility] [address] [id number] [place] Clerk: Doug Olivera PhD, Phone: [phone] Immunoglobulin light chains. lambda.free [Mass/volume] in Serum or PlasmaOrdered By: Neva Miller on 10-17-2021 Immunoglobulin light chains.lambda.free [Mass/Vol] 49.6 mg/L [facility] No Panel InformationOrdered By: Neva Miller on 10-17-2021 Protein Electrophoresis M-Billy Not observed g/dL Not Observed [facility] Protein Electrophoresis Note See comment [facility] Comment on above: Protein electrophore sis scan will follow via computer, mail, or rotor winder delivery. Performed at: [facility] [id number] [place] Clerk: Doug Olivera PhD, Phone: [phone] Protein [Mass/volume] in Ser um or PlasmaOrdered By: Neva Miller on 10-17-2021 Protein [Mass/Vol] 8.5 g/dL [facility] Serum globulin measurement ( mass/volume)Ordered By: Neva Miller on 10-17-2021 Globulin (S) [Mass/Vol] 4.9 g/dL [facility] Serum or plasma albumin/glob ulin mass ratioOrdered By: Neva Miller on 10-17-2021 Albumin/Globulin [Mass ratio] 0.7 {ratio} [facility] Serum or plasma alpha 1 glob ulin measurement by electrophoresis (mass/volume)Ordered By: Neva Miller on 10-17-2021 Alpha 1 globulin Elph [Mass/Vol] 0.2 g/dL [facility] Serum or plasma alpha 2 glob ulin measurement by electrophoresis (mass/volume)Ordered By: Neva Miller on 10-17-2021 Alpha 2 globulin Elph [Mass/Vol] 0.7 g/dL [facility] Serum or plasma beta globuli n measurement by electrophoresis (mass/volume)Ordered By: Neva Miller on 10-17-2021 Beta globulin Elph [Mass/Vol] 1.5 g/dL [facility] Serum or plasma gamma globul in measurement by electrophoresis (mass/volume)Ordered By: Neva Miller on 10-17-2021 Gamma globulin Elph [Mass/Vol] 2.5 g/dL [facility] Albumin [Mass/volume] in Ser um or PlasmaOrdered By: Neva Miller on 10-15-2021 Albumin [Mass/Vol] 3.2 g/dL 3.2-5.[address] [facility] Basophils Auto (Bld) [#/Vol] Ordered By: Neva Miller on 10-15-2021 Basophils (Bld) [#/Vol] 0.0 10*3/uL 0.0-0.2 [facility] Basophils/100 WBC Auto (Bld) Ordered By: Neva Miller on 10-15-2021 Basophils/100 WBC (Bld) 1.1 % [facility] Blood hemoglobin measurement (mass/volume)Ordered By: Neva Miller on 10-15-2021 Hemoglobin (Bld) [Mass/Vol] 12.7 g/dL 11.8-15.4 [facility] Blood leukocytes automated c ount (number/volume)Ordered By: Neva Miller on 10-15-2021 WBC (Bld) [#/Vol] 4.5 10*3/uL 4.5-11.[address] [facility] Cholesterol [Mass/volume] in Serum or PlasmaOrdered By: Neva Miller on 10-15-2021 Cholesterol [Mass/Vol] 171 mg/dL 140-200 [facility] Comment on above: Chol less than 200 m g/dl low risk Chol 201-239 mg/dl borderline risk Chol 240 mg/dl and greater high risk Cholesterol in LDL Calc [Mas s/Vol]Ordered By: Neva Miller on 10-15-2021 Cholesterol in LDL [Mass/Vol] 106 mg/dL 0-100 [facility] Comment on above: LDL ATP III CLASSIFI CATION LDL less than 100 mg/dL Optimal LDL 100-129 mg/dL Near or above optimal LDL 130-159 mg/dL Borderline high LDL 160-189 mg/dL High LDL greater than 189 mg/dL Very high Cholesterol in VLDL Calc [Ma ss/Vol]Ordered By: Neva Miller on 10-15-2021 Cholesterol in VLDL [Mass/Vol] 18 mg/dL [facility] Creatinine and Glomerular fi ltration rate.predicted panel (S/P/Bld)Ordered By: Neva Miller on 10-15-2021 Creatinine [Mass/Vol] 1.04 mg/dL 0.44-1.03 [facility] Eosinophils Auto (Bld) [#/Vo l]Ordered By: Neva Miller on 10-15-2021 Eosinophils (Bld) [#/Vol] 0.4 10*3/uL 0.0-0.45 [facility] Eosinophils/100 WBC Auto (Bl d)Ordered By: Neva Miller on 10-15-2021 Eosinophils/100 WBC (Bld) 9.0 % [facility] Erythrocyte distribution wid th Auto (RBC) [Ratio]Ordered By: Neva Miller on 10-15-2021 Erythrocyte distribution width (RBC) [Ratio] 13.4 % 11.9-15.3 [facility] Erythrocyte sedimentation ra te by Photometric methodOrdered By: Neva Miller on 10-15-2021 ESR Photometric method (Bld) [Velocity] 86 mm/hr 0-29 [facility] Estimated glomerular filtrat ion rate (GFR) non- AmericanOrdered By: Neva Miller on 10-15-2021 GFR/1.73 sq M.predicted among non-blacks MDRD (S/P/Bld) [Vol rate/Area] 54 mL/Min [facility] Globulin Calc (S) [Mass/Vol] Ordered By: Neva Miller on 10-15-2021 Globulin (S) [Mass/Vol] 4.6 g/dL [facility] Hematocrit Auto (Bld) [Volum e fraction]Ordered By: Neva Miller on 10-15-2021 Hematocrit (Bld) [Volume fraction] 38.0 % 34.0-46.4 [facility] Laboratory - Hematology and Cell countsOrdered By: Neva Miller on 10-15-2021 Nucleated RBC/100 WBC (Bld) [Ratio] 0.2 % 0-0.5 [facility] Lymphocytes Auto (Bld) [#/Vo l]Ordered By: Neva Miller on 10-15-2021 Lymphocytes (Bld) [#/Vol] 1.7 10*3/uL 1.00-4.8 [facility] Lymphocytes/100 WBC Auto (Bl d)Ordered By: Neva Miller on 10-15-2021 Lymphocytes/100 WBC (Bld) 38.4 % [facility] MCH Auto (RBC) [Entitic mass ]Ordered By: Neva Miller on 10-15-2021 MCH (RBC) [Entitic mass] 30.7 pg 24.7-34.3 [facility] MCHC Auto (RBC) [Mass/Vol]Or dered By: Neva Miller on 10-15-2021 MCHC (RBC) [Mass/Vol] 33.3 g/dL 32.0-35.0 [facility] MCV Auto (RBC) [Entitic vol] Ordered By: Neva Miller on 10-15-2021 MCV (RBC) [Entitic vol] 92.3 fL 80-100 [facility] Monocytes Auto (Bld) [#/Vol] Ordered By: Neva Miller on 10-15-2021 Monocytes (Bld) [#/Vol] 0.3 10*3/uL 0.0-0.8 [facility] Monocytes/100 WBC Auto (Bld) Ordered By: Neva Miller on 10-15-2021 Monocytes/100 WBC (Bld) 7.0 % [facility] Neutrophils Auto (Bld) [#/Vo l]Ordered By: Neva Miller on 10-15-2021 Neutrophils (Bld) [#/Vol] 2.0 10*3/uL 1.8-7.7 [facility] Neutrophils/100 WBC Auto (Bl d)Ordered By: Neva Miller on 10-15-2021 Neutrophils/100 WBC (Bld) 44.5 % [facility] No Panel InformationOrdered By: Neva Miller on 10-15-2021 25-Hydroxy Vitamin D Total 39.6 ng/mL 30-100 [facility] Comment on above: VITAMIN D STATUS 25( [place])VITAMIN D RANGE (ng/mL) Deficient <20 Insufficient 20 to <30 Sufficient 30 to 100 Reference: Anni MF,Jamison NC, Mark LINDA, et al. Evaluation,treatment, and prevention of vitamin D deficiency; an Endocrine Society clinical practice guideline. JCEM. 2010; 96(7):1911-30. Estimated GFR () > 60 mL/Min [facility] Comment on above: GFR estimated refere nce range: According to KDOQI guidelines, <60 ml/min/1.73m2 is sufficient to diagnose a patient with chronic kidney disease. Pharmacy Creatinine Clearance (Chem N/A [facility] Platelet mean volume Auto (B ld) [Entitic vol]Ordered By: Neva Miller on 10-15-2021 Platelet mean volume (Bld) [Entitic vol] 7.1 fL 6.3-10.7 [facility] Platelets Auto (Bld) [#/Vol] Ordered By: Neva Miller on 10-15-2021 Platelets (Bld) [#/Vol] 314 10*3/uL 150-450 [facility] Protein [Mass/volume] in Ser um or PlasmaOrdered By: Neva Miller on 10-15-2021 Protein [Mass/Vol] 7.8 g/dL 6.1-7.[address] [facility] RBC Auto (Bld) [#/Vol]Ordere d By: Neva Miller on 10-15-2021 RBC (Bld) [#/Vol] 4.12 10*6/uL 3.60-5.00 [facility] Serum or plasma C reactive p rotein measurement (mass/volume)Ordered By: Neva Miller on 10-15-2021 CRP [Mass/Vol] 0.8 mg/dL 0.0-1.0 [facility] Serum or plasma alanine le otransferase measurement without P-5'-P (enzymatic activiOrdered By: Neva Miller on 10-15-2021 ALT No additional P-5'-P [Catalytic activity/Vol] 16 U/L 10-60 [facility] Serum or plasma albumin/glob ulin mass ratioOrdered By: Neva Miller on 10-15-2021 Albumin/Globulin [Mass ratio] 0.7 {ratio} [facility] Serum or plasma alkaline amos sphatase measurement (enzymatic activity/volume)Ordered By: Neva Miller on 10-15-2021 ALP [Catalytic activity/Vol] 105 U/L 32-92 [facility] Serum or plasma aspartate am inotransferase measurement (enzymatic activity/volume)Ordered By: Neva Miller on 10-15-2021 AST [Catalytic activity/Vol] 22 U/L 10-42 [facility] Serum or plasma calcium jose urement (mass/volume)Ordered By: Neva Miller on 10-15-2021 Calcium [Mass/Vol] 8.9 mg/dL 8.2-10.[address] [facility] Serum or plasma chloride ja surement (moles/volume)Ordered By: Neva Miller on 10-15-2021 Chloride [Moles/Vol] 103 mmol/L 95-114 [facility] Serum or plasma glucose jose urement (mass/volume)Ordered By: Neva Miller on 10-15-2021 Glucose [Mass/Vol] 93 mg/dL 70-[address] [facility] Comment on above: ADA recommended refe rence range Random Glucose Reference Range is dependent on time and content of last meal. Glucose of more than 200 mg/dL in a nonstressed, ambulatory subject supports the diagnosis of Diabetes Mellitus. Serum or plasma high density lipoprotein (HDL) cholesterol measurementOrdered By: Neva Miller on 10-15-2021 Cholesterol in HDL [Mass/Vol] 47 mg/dL 35-85 [facility] Comment on above: HDL CHOL ATP-III CLA SSIFICATION Cardiovascular Risk HDL > or equal to 60 mg/dL LOW HDL < 40 mg/dL HIGH Serum or plasma potassium me asurement (moles/volume)Ordered By: Neva Miller on 10-15-2021 Potassium [Moles/Vol] 4.8 mmol/L 3.5-5.1 [facility] Serum or plasma sodium measu rement (moles/volume)Ordered By: Neva Miller on 10-15-2021 Sodium [Moles/Vol] 139 mmol/L 136-[address] [facility] Serum or plasma total biliru bin measurement (mass/volume)Ordered By: Neva Miller on 10-15-2021 Bilirubin [Mass/Vol] 0.4 mg/dL 0.3-1.2 [facility] Serum or plasma total carbon dioxide measurement (moles/volume)Ordered By: Neva Miller on 10-15-2021 CO2 [Moles/Vol] 28.8 mmol/L 22.0-30.0 [facility] Serum or plasma total choles terol/high density lipoprotein (HDL) cholesterol mass ratOrdered By: Neva Miller on 10-15-2021 Cholesterol.total/Choles terol in HDL [Mass ratio] 3.6 {ratio} [facility] Serum or plasma urea nitroge n measurement (mass/volume)Ordered By: Neva Miller on 10-15-2021 Urea nitrogen [Mass/Vol] 14 mg/dL 9-23 [facility] Triglyceride [Mass/volume] i n Serum or PlasmaOrdered By: Neva Miller on 10-15-2021 Triglyceride [Mass/Vol] 90 mg/dL 35-149 [facility] Comment on above: TRIG ATP III CLASSIF ICATION TRIG less than 150 mg/dL Normal TRIG 150-199 mg/dL Borderline high TRIG 200-500 mg/dL High TRIG greater than 500 mg/dL Very high Standard traceable to the Center for Disease Conrtrol and Prevention (CDC) test method. XR Spine Cervical Complete w /Flex AND [place] 08-15-2021 XR Spine Cervical Complete w/Flex AND Ext CLINICAL HISTORY: No known injury. Pain left side of neck. Pain for several months with flexion and extension. Pain radiates to left upper extremity. COMPARISON: None. TECHNIQUE: 5 Views were obtained with flex and extended lateral views FINDINGS: No sign of fracture or osseous destruction. On the flexion view there is very minimal anterolisthesis at the C4-5 level. Otherwise, good alignment of the cervical spine. Mild narrowing of the C4-5 disc. IMPRESSION: NO FRACTURE OR MALALIGNMENT. MINIMAL DEGENERATIVE CHANGES. MINIMAL NARROWING C4-5 DISC. MINIMAL ANTEROLISTHESIS AT THIS LEVEL ON FLEXED VIEW. Report reported and signed by Belkis Hyde on 08/15/2021 0932 Normal [facility] Shiftman C REACTIVE PROTEINon 021 CRP [Mass/Vol] 74.1 mg/L High 0.0-7.[address] [facility] Comment on above: Performed By: #### 6 1405 #### [facility] [address] CBC W/DIFFon 07-03-2021 ABS IMM GRANS 0.0 10*3/uL Normal 0.0-0.[address] [facility] Comment on above: Performed By: #### 5 [id number], 92534 #### [facility] [address] [place], [place] [id number] [place] [address] ABS NEUTROPHILS 2.5 10*3/uL Normal 1.6-7.[address] [facility] Comment on above: Performed By: #### 5 6505, 84503 #### [facility] [address] [place] [address], [facility] Basophils (Bld) [#/Vol] 0.0 10*3/uL Normal 0.0-0.[address] [facility] Comment on above: Performed By: #### 5 6505, 81497 #### [facility] [address] [place] [address], [place] Basophils/100 WBC (Bld) 0.7 % Normal 0.0-1.0 [facility] Comment on above: Performed By: #### 5 6505, 81956 #### [facility] [address] [place] [address], [facility] Eosinophils (Bld) [#/Vol] 0.4 10*3/uL Normal 0.0-0.[address] [facility] Comment on above: Performed By: #### 5 6505, 69523 #### [facility] [address] [place] [address], [facility] Eosinophils/100 WBC (Bld) 6.2 % High 0.0-6.[address] [facility] Comment on above: Performed By: #### 5 6505, 33294 #### [facility] [address] [place] [address], [facility] Erythrocyte distribution width (RBC) [Ratio] 13.6 % Normal 11.5-15.[address] [facility] Comment on above: Performed By: #### 5 6505, 16237 #### [facility] [address] [place] [address], [place] Hematocrit (Bld) [Volume fraction] 38.2 % Normal 36.0-45.[address] [facility] Comment on above: Performed By: #### 5 6505, 60969 #### [facility] [address] [place] [address], [place] Hemoglobin (Bld) [Mass/Vol] 12.5 g/dL Normal 12.0-15.[address] [facility] Comment on above: Performed By: #### 5 6505, 54127 #### [facility] [address] [facility] [address], [facility] IMMATURE GRANS 0.5 % Normal 0.0-1.[address] [facility] Comment on above: Performed By: #### 5 6505, 48011 #### [facility] [address] [facility] [address], [facility] Lymphocytes (Bld) [#/Vol] 2.2 10*3/uL Normal 1.2-4.[address] [facility] Comment on above: Performed By: #### 5 6505, 26350 #### [facility] [address] [facility]. [address] Lymphocytes/100 WBC (Bld) 38.8 % Normal 20.0-45.[address] [facility] Comment on above: Performed By: #### 5 6505, 19429 #### [facility] [address] [facility] [address], [facility] MCH (RBC) [Entitic mass] 30.0 pg Normal 27.0-33.[address] [facility] Comment on above: Performed By: #### 5 6505, 80323 #### [facility] [address] [facility] [address], [facility] MCHC (RBC) [Mass/Vol] 32.7 g/dL Normal 32.0-35.[address] [facility] Comment on above: Performed By: #### 5 6505, 61334 #### [facility] [address] [facility] [address], [facility] MCV (RBC) [Entitic vol] 91.6 fL Normal 82.0-98.[address] [facility] Comment on above: Performed By: #### 5 6505, 56729 #### [facility] [address] [facility] [place] [address], [facility] Monocytes (Bld) [#/Vol] 0.6 10*3/uL Normal 0.1-1.[address] [facility] Comment on above: Performed By: #### 5 6505, 60422 #### [facility] [address] [place] [address], [place] MONOS 9.8 % Normal 5.0-12.[address] [facility] Comment on above: Performed By: #### 5 6505, 49446 #### [facility] [address] [place] [address], [facility] Neutrophils/100 WBC (Bld) 44.0 % Normal 40.0-72.[address] [facility] Comment on above: Performed By: #### 5 6505, 12973 #### [facility] [address] [place] [address], [facility] Nucleated RBC/100 WBC (Bld) [Ratio] 0 % Normal 0-[address] [facility] Comment on above: Performed By: #### 5 6505, 92259 #### [facility] [address] [place] [address], [facility] PLAT CNT 303 10*3/uL Normal 150-[address] [facility] Comment on above: Performed By: #### 5 6505, 59749 #### [facility] [address] [place] [address], [facility] RBC (Bld) [#/Vol] 4.17 10*6/uL Normal 3.80-5.[address] [facility] Comment on above: Performed By: #### 5 6505, 93146 #### [facility] [address] [place] [address], [place] WBC (Bld) [#/Vol] 5.64 10*3/uL Normal 4.00-10.[address] [facility] Comment on above: Performed By: #### 5 6505, 80998 #### [facility] [address] [place] [address], [facility] SEDIMENTATION RATEon 021 SED RATE 20 mm/hr Normal 0-[address] [facility] Comment on above: Performed By: #### 5 6506, 99814 #### [facility] [address] [place] [address], [facility] XR Bone Density (DEXA)on XR Bone Density (DEXA) [address], [address], [place] [address] ?? Mammography ?? Ultrasound ?? Bone Density PATIENT NAME: , ORDERING PHYSICIAN: PATIENT : EXAM DATE: MRN: EXAM: HISTORY: Bone density screening. COMPARISON: None. PROCEDURE: Imaging of the lumbar spine and bilateral hips was obtained for bone density evaluation. FINDINGS: REGION BMD (g/cm??) YOUNG ADULT T-SCORE AGE-MATCHED Z-SCORE LEFT ULNA 0.6 0.9 2.2 LEFT NECK 0.5 -2.7 -1.4 LUMBAR (L1-L4) 0.9 -1.2 0.3 The mean BMD and corresponding T-score listed above indicate: Osteopenia and places the patient at a mild to moderate increased risk for fracture. There may be a future risk of developing osteoporosis. Recommend follow-up exam in 1 year, sooner as clinically necessary. Comment: The T-score is the primary focus of the interpretation of a patient???s bone mineral density measurement. The T-score is the number of standard deviations and individual is above or below the mean value for a young female having normal bone mass. The WHO defines osteoporosis based on the T-score value: +1.0 to -0.9 : Normal bone mass -1.0 to -2.5 : Osteopenia and thus may be at future risk of fracture. -2.6 to -5.0 : Osteoporosis and at significantly increased risk of fracture. IMPRESSION: OSTEOPENIA : ONE YEAR FOLLOW-UP RECOMMENDED Report reported and signed by FELIPE PARK on 07/10/2021 0821 Normal [facility] Shiftman Cult,Urineon 10-30-2019 Cult,Urine Specimen Description .CATHETERIZED URINE Special Requests [id number] Culture ESCHERICHIA COLI >[id number] CFU/ML Report Status FINAL 10/30/2019 SUSCEPTIBILITY Organism ESCHERICHIA COLI Method DESMOND Amikacin NOT REPORTED Ampicillin 8 SUSCEPTIBLE Ampicillin/Sulbactam NOT REPORTED Aztreonam <=1 SUSCEPTIBLE Cefazolin <=4 SUSCEPTIBLE Cefazolin sensitivity results can be used to predict the effectiveness of oral cephalosporins (eg. Cephalexin) in uncomplicated Urinary Tract Infections due to E. coli, K. pneumoniae, and P. mirabilis Cefepime NOT REPORTED Ceftriaxone <=1 SUSCEPTIBLE Ciprofloxacin <=0.25 SUSCEPTIBLE Ertapenem NOT REPORTED ESBL NEGATIVE Gentamicin <=1 SUSCEPTIBLE Meropenem NOT REPORTED Nitrofurantoin 32 SUSCEPTIBLE Tigecycline NOT REPORTED Tobramycin <=1 SUSCEPTIBLE Trimethoprim/Sulfa <=20 SUSCEPTIBLE Piperacillin/Tazobactam <=4 SUSCEPTIBLE Normal [facility] Comment on above: Performed By: #### U #### [facility] [address] [place] [address] [place] Clerk: Aryan Hinojosa MD [facility] [employer] [address] [place], [place] [id number] [place] Clerk: Low Adames MD Microscopic Urinalysison Amorphous, UA NOT REPORTED None [place] Bacteria, UA MANY Abnormal None [place] Casts UA NOT REPORTED /LPF [place] Crystals, UA 5 TO 10 CALCIUM OXALATE Abnormal None /HPF [place] Epithelial Cells UA 10 TO 20 [place] Interpretation and review of laboratory results Abnormal [place] Mucus, UA NOT REPORTED None [place] Other Observations UA NOT REPORTED NOT REQ. M [place] RBC (U) [#/Vol] 2 TO 5 [place] Renal Epithelial, UA NOT REPORTED 0 /HPF [place] Trichomonas, UA NOT REPORTED None [place] WBC, UA 20 TO 50 [place] Yeast, UA NOT REPORTED None [place] Urinalysison 10-28-2019 Bilirubin Urine Negative NEGATIVE [place] Color, UA YELLOW YELLOW [place] Glucose, Ur Negative NEGATIVE [place] Interpretation and review of laboratory results Abnormal [place] Ketones Ql (U) Negative NEGATIVE [place] Leukocyte esterase Test strip Ql (U) LARGE Abnormal NEGATIVE [place] Nitrite, Urine Positive Abnormal NEGATIVE [place] pH, UA 5.5 [place] Protein (U) [Mass/Vol] TRACE Abnormal NEGATIVE [place] Specific [place], UA 1.016 [place] Turbidity UA SLIGHTLY CLOUDY Abnormal CLEAR [place] Urinalysis Comments NOT REPORTED [place] Urine Hgb 1+ Abnormal NEGATIVE [place] Urobilinogen, Urine Normal Normal [place] Urinalysis, Routineon 2019 Acetoacetic Acid,Ur Negative Normal NEG [facility] Comment on above: Performed By: #### U A UMSTEFANIEO #### [facility] [address] [place] [address] [place] Clerk: Aryan Hinojosa MD Bilirubin, SemiQt,Ur Negative Normal NEG [facility] Comment on above: Performed By: #### U ASHIRLEYO #### [facility] [place] [address] [place] Clerk: Aryan Hinojosa MD Color (U) YELLOW Normal YEL [facility] Comment on above: Performed By: #### U A UMICAO #### [facility] [address] [place] [address] [place] Clerk: Aryan Hinojosa MD Glucose Ql (U) Negative Normal NEG [facility] Comment on above: Performed By: #### U A UMICAO #### [facility] [place] [address] [place] Clerk: Aryan Hinojosa MD Hemoglobin, Ur 1+ Abnormal NEG [facility] Comment on above: Performed By: #### U A, UMICAO #### [facility] [address] [place] [address] [place] Clerk: Aryan Hinojosa MD Leukocyte esterase Test strip Ql (U) LARGE Abnormal NEG [facility] Comment on above: Performed By: #### U A, UMICAO #### [facility] [address] [place] [address] [place] Clerk: Aryan Hinojosa MD Nitrite,Ur Positive Abnormal NEG [facility] Comment on above: Performed By: #### U A, UMICAO #### [facility] [place] [address] [place] Clerk: Aryan Hinojosa MD pH (U) 5.5 [pH] Normal 5.0-8.0 [facility] Comment on above: Performed By: #### U A, UMICAO #### [facility] [address] [place] [address] [place] Clerk: Aryan Hinojosa MD Protein Ql (U) TRACE Abnormal NEG [facility] Comment on above: Performed By: #### U A, UMICAO #### [facility] [address] [place] [address]. [place] [address] [place] Clerk: Aryan Hinojosa MD Specific gravity (U) [Rel density] 1.016 Normal 1.005-1.03 0 [facility] Comment on above: Performed By: #### U A, UMICAO #### [facility] [place] [address] [place] Clerk: Aryan Hinojosa MD Turbidity SLIGHTLY CLOUDY Abnormal CLEAR [facility] Comment on above: Performed By: #### U A, UMICAO #### [facility] [place] [address] [place] Clerk: Aryan Hinojosa MD Urobilinogen,Ur Normal Normal NORM [facility] Comment on above: Performed By: #### U GIULIANA Alonzo #### [facility] [place] [address] [place] Clerk: Aryan Hinojosa MD Comment NOT REPORTED Normal [facility] Comment on above: Performed By: #### GIULIANA Siegel #### [facility] [address] [place] [address] [place] Clerk: Aryan Hinojosa MD Urinalysis,Microon 0 ----- Normal [facility] Comment on above: Performed By: #### GIULIANA Siegel #### [facility] [address] [place], [place] [address]ia [facility] [place] [address] [place] Clerk: Aryan Hinojosa MD Bacteria LM.HPF (Urine sed) [#/Area] MANY Abnormal NONE [facility] Comment on above: Performed By: #### GIULIANA Siegel #### [facility] [address] [place], [place] [address]ia [facility] [place] [address] [place] Clerk: Aryan Hinojosa MD Crystals LM Nom (Urine sed) 5 TO 10 Abnormal NONE [facility] Comment on above: Result Comment: CALC IUM OXALATE Performed By: #### U SHIRLEY AlonzoO #### [facility] [address] [place] [address] [place] Clerk: Aryan Hinojosa MD Epithelial cells LM.HPF (Urine sed) [#/Area] 10 TO 20 Normal 0-5 [facility] Comment on above: Performed By: #### U SHIRLEY AlonzoO #### [facility] [place] [address] [place] Clerk: Aryan Hinojosa MD RBC (U) [#/Vol] 2 TO 5 Normal 0-2 [facility] Comment on above: Performed By: #### U A, UMICAO #### [facility] [address] [place] [address] [place] Clerk: Aryan Hinojosa MD WBC (U) [#/Vol] 20 TO 50 Normal 0-5 [facility] Comment on above: Performed By: #### U A, UMICAO #### [facility] [address] [place] [address] [place] Clerk: Aryan Hinojosa MD Amorphous sediment LM Ql (Urine sed) NOT REPORTED Normal [facility] Comment on above: Performed By: #### U A, UMICAO #### [facility] [address] [place] [address] [place] Clerk: Aryan Hinojosa MD Casts LM.LPF (Urine sed) [#/Area] NOT REPORTED Normal [facility] Comment on above: Performed By: #### U A, UMICAO #### [facility] [address] [place] [address] [place] Clerk: Aryan Hinojosa MD Epithelial, Renal NOT REPORTED Normal 0 [facility] Comment on above: Performed By: #### U A, UMICAO #### [facility] [address] [place] [address] [place] Clerk: Aryan Hinojosa MD Mucus Strands NOT REPORTED Normal [facility] Comment on above: Performed By: #### U A, UMICAO #### [facility] [address] [place] [address] [place] Clerk: Aryan Hinojosa MD Other Observations NOT REPORTED Normal NREQ [facility] Comment on above: Performed By: #### U A, UMICAO #### [facility] [address] [facility] [place], [place] [phone] [place] Clerk: Aryan Hinojosa MD Trichomonas NOT REPORTED Normal NONE [facility] Comment on above: Performed By: #### U A, UMICAO #### [facility] [address] [facility] [place], [place] [id number] [place] Clerk: Aryan Hinojosa MD Yeast LM Ql (Urine sed) NOT REPORTED Normal NONE [facility] Comment on above: Performed By: #### U A, UMICAO #### [facility] [address] [facility] [place], [place] [phone] [place] Clerk: Aryan Hinojosa MD Basic Metabolic Panelon -0 Anion gap [Moles/Vol] 16 mmol/L 9 - 17 mmol/L [place] Bun/Cre Ratio NOT REPORTED [place] Calcium [Mass/Vol] 9.3 mg/dL 8.6 - 10. 4 mg/dL [place] Chloride [Moles/Vol] 105 mmol/L 98 - 10 7 mmol/L [place] CO2 [Moles/Vol] 24 mmol/L 20 - 31 mmol/L [place] Creatinine [Mass/Vol] 0.82 mg/dL 0.5 - 0.9 mg/dL [place] GFR >60 >60 mL/min [place] GFR Non- >60 >60 mL/min [place] GFR/1.73 sq M predicted among non-blacks MDRD (S/P/Bld) [Vol rate/Area] NOT REPORTED [place] GFR/1.73 sq M predicted among non-blacks MDRD (S/P/Bld) [Vol rate/Area] [place] Comment on above: Average GFR for 50-5 9 years old: 93 mL/min/1.73sq m Chronic Kidney Disease: <60 mL/min/1.73sq m Kidney failure: <15 mL/min/1.73sq m eGFR calculated using average adult body mass. Additional eGFR calculator available at: http://www.Risktail/multiple_crcl_2012.htm Glucose [Mass/Vol] 76 mg/dL 70 - 99 mg/dL [place] Interpretation and review of laboratory results Abnormal [place] Potassium [Moles/Vol] 4.2 mmol/L 3.7 - 5.3 mmol/L [place] Sodium [Moles/Vol] 145 mmol/L High 135 - 144 mmol/L [place] Urea nitrogen [Mass/Vol] 12 mg/dL 6 - 20 mg/dL [place] Basic Metabolic Profon 10-05 (cont.) Normal [facility] Comment on above: Result Comment: Aver age GFR for 50-59 years old: 93 mL/min/1.73sq m Chronic Kidney Disease: <60 mL/min/1.73sq m Kidney failure: <15 mL/min/1.73sq m eGFR calculated using average adult body mass. Additional eGFR calculator available at: http://www.Risktail/multiple_crcl_2012.htm Performed By: #### Mia SINGER, BMP #### [facility] [employer] [address] [place] [address] [phone] [place] Clerk: Low Adames MD Anion gap [Moles/Vol] 16 mmol/L Normal 9-17 [facility] Comment on above: Performed By: #### C LUCRECIA, BMP #### [facility] [address] [place], [place] [phone] [place] Clerk: Low Adamse MD Calcium [Mass/Vol] 9.3 mg/dL Normal 8.6-10.4 [facility] Comment on above: Performed By: #### Mia SINGER, BMP #### [facility] [address] [place] [address] [phone] [place] Clerk: Low Adames MD Chloride [Moles/Vol] 105 mmol/L Normal 98-107 [facility] Comment on above: Performed By: #### C BC, BMP #### [facility] [address] [place] [address] [place] Clerk: Low Adames MD CO2 [Moles/Vol] 24 mmol/L Normal 20-31 [facility] Comment on above: Performed By: #### C BC, BMP #### [facility] [address] [place] [phone] [place] Clerk: Low Adames MD Creatinine [Mass/Vol] 0.82 mg/dL Normal 0.50-0.90 [facility] Comment on above: Performed By: #### C BC, BMP #### [address] [address] [place] Clerk: Low Adames MD GFR, Amer >60 Normal >60 [facility] Comment on above: Performed By: #### C BC, BMP #### [facility] [address] [place] [address] [place] Clerk: Lwo Adames MD GFR,non Amer >60 Normal >60 [facility] Comment on above: Performed By: #### C BC, BMP #### [facility] [employer] [address] [place] [address] [place] Clerk: Low Adames MD Glucose [Mass/Vol] 76 mg/dL Normal 70-99 [facility] Comment on above: Performed By: #### C BC, BMP #### [facility] [address] [place] [address] [place] Clerk: Low Adames MD Potassium [Moles/Vol] 4.2 mmol/L Normal 3.7-5.3 [facility] Comment on above: Performed By: #### C BC, BMP #### [facility] [address] [place] [address] [place] Clerk: Low Adames MD Sodium [Moles/Vol] 145 mmol/L High 135-144 [facility] Comment on above: Performed By: #### C BC, BMP #### [facility] [employer] [address] [place] [address] [place] Clerk: Low Adames MD Urea nitrogen [Mass/Vol] 12 mg/dL Normal -20 [facility] Comment on above: Performed By: #### C BC, BMP #### [facility] [employer] [address] [place] [address] [place] Clerk: Low Adames MD BUN/CRE Ratio NOT REPORTED Normal - [facility] Comment on above: Performed By: #### C BC, BMP #### [facility] [employer] [address] [place] [address] [place] Clerk: Low Adames MD Staging: NOT REPORTED Normal [facility] Comment on above: Performed By: #### C BC, BMP #### [facility] [employer] [address] [place] [address] [place] Clerk: Low Adames MD CBCon 10-06-2019 Erythrocyte distribution width (RBC) [Ratio] 14.1 % Normal 11.8-14.4 [facility] Comment on above: Performed By: #### C BC, BMP #### [facility] [employer] [address] [place] [address] [place] Clerk: Low Adames MD Hematocrit (Bld) [Volume fraction] 38.6 % Normal 36.3-47.1 [facility] Comment on above: Performed By: #### C BC, BMP #### [facility] [employer] [address] [place] [address] [place] Clerk: Low Adames MD Hemoglobin (Bld) [Mass/Vol] 12.2 g/dL Normal 11.9-15.1 [facility] Comment on above: Performed By: #### C BC, BMP #### [facility] [address] [place] [address] [place] Clerk: Low Adames MD MCH (RBC) [Entitic mass] 30.8 pg Normal 25.2-33.5 [facility] Comment on above: Performed By: #### C BC, BMP #### [address] [address] [place] Clerk: Low Adames MD MCHC (RBC) [Mass/Vol] 31.6 g/dL Normal 28.4-34.8 [facility] Comment on above: Performed By: #### C BC, BMP #### [address] [address] [place] Clerk: Low Adames MD MCV (RBC) [Entitic vol] 97.5 fL Normal 82.6-102.9 [facility] Comment on above: Performed By: #### C BC, BMP #### [address] [address] [place] Clerk: Low Adames MD NRBC Automated 0.0 per 100 WBC Normal 0.0 [facility] Comment on above: Performed By: #### C BC, BMP #### [address] [address] [place] Clerk: Low Adames MD Platelet mean volume (Bld) [Entitic vol] 9.8 fL Normal 8.1-13.5 [facility] Comment on above: Performed By: #### C BC, BMP #### [address] [address] [place] Clerk: Low Adames MD Platelets (Bld) [#/Vol] 372 10*3/uL Normal 138-453 [facility] Comment on above: Performed By: #### C BC, BMP #### [address] [address] [place] Clerk: Low Adames MD RBC (Bld) [#/Vol] 3.96 10*6/uL Normal 3.95-5.11 [facility] Comment on above: Performed By: #### C LUCRECIA, BMP #### [facility] [address] [place], [place] [phone] [place] Clerk: Low Adames MD WBC (Bld) [#/Vol] 4.7 10*3/uL Normal 3.5-11.3 [facility] Comment on above: Performed By: #### C LUCRECIA, BMP #### [facility] [employer] [address] [place], [place] [phone] [place] Clerk: Low Adames MD Erythrocyte distribution width (RBC) [Ratio] 14.1 % 11.8 - 14.4 % [place] Hematocrit (Bld) [Volume fraction] 38.6 % 36.3 - 47.1 % [place] Hemoglobin (Bld) [Mass/Vol] 12.2 g/dL 11.9 - 15.1 g/dL [place] MCH (RBC) [Entitic mass] 30.8 pg 25. 2 - 33.5 pg [place] MCHC (RBC) [Mass/Vol] 31.6 g/dL 28.4 - 34.8 g/dL [place] MCV (RBC) [Entitic vol] 97.5 fL 82.6 - 102.9 fL [place] Platelet mean volume (Bld) [Entitic vol] 9.8 fL 8.1 - 13.5 fL [place] Platelets (Bld) [#/Vol] 372 10*3/uL [place] RBC (Bld) [#/Vol] 3.96 10*6/uL 3.95 - 5.11 m/uL [place] WBC (Bld) [#/Vol] 0.0 10*3/uL 0.0 per 100 WBC [place] WBC (Bld) [#/Vol] 4.7 10*3/uL [place] Basic Metabolic Panelon 02-2 8-2020 Anion gap [Moles/Vol] 13 mmol/L 9 - 17 mmol/L [place] Bun/Cre Ratio NOT REPORTED [place] Calcium [Mass/Vol] 9.6 mg/dL 8.6 - 10. 4 mg/dL [place] Chloride [Moles/Vol] 102 mmol/L 98 - 10 7 mmol/L [place] CO2 [Moles/Vol] 26 mmol/L 20 - 31 mmol/L [place] Creatinine [Mass/Vol] 0.81 mg/dL 0.5 - 0.9 mg/dL [place] GFR >60 >60 mL/min [place] GFR Non- >60 >60 mL/min [place] GFR/1.73 sq M predicted among non-blacks MDRD (S/P/Bld) [Vol rate/Area] NOT REPORTED [place] GFR/1.73 sq M predicted among non-blacks MDRD (S/P/Bld) [Vol rate/Area] [place] Comment on above: Average GFR for 50-5 9 years old: 93 mL/min/1.73sq m Chronic Kidney Disease: <60 mL/min/1.73sq m Kidney failure: <15 mL/min/1.73sq m eGFR calculated using average adult body mass. Additional eGFR calculator available at: http://www.[employer].LEHR/multiple_crcl_2011.htm Glucose [Mass/Vol] 95 mg/dL 70 - 99 mg/dL [place] Potassium [Moles/Vol] 4.5 mmol/L 3.7 - 5.3 mmol/L [place] Sodium [Moles/Vol] 141 mmol/L 135 - 144 mmol/L [place] Urea nitrogen [Mass/Vol] 16 mg/dL 6 - 20 mg/dL [place] Basic Metabolic Profon 09-29 (cont.) Normal [facility] Comment on above: Result Comment: Aver age GFR for 50-59 years old: 93 mL/min/1.73sq m Chronic Kidney Disease: <60 mL/min/1.73sq m Kidney failure: <15 mL/min/1.73sq m eGFR calculated using average adult body mass. Additional eGFR calculator available at: http://www.[employer].LEHR/multiple_crcl_2012.htm Performed By: #### C BC, BMP #### [address] [address] [place] Clerk: Low Adaems MD Anion gap [Moles/Vol] 13 mmol/L Normal 9-17 [facility] Comment on above: Performed By: #### C BC, BMP #### [address] [address] [place] Clerk: Low Adames MD Calcium [Mass/Vol] 9.6 mg/dL Normal 8.6-10.4 [facility] Comment on above: Performed By: #### C BC, BMP #### [address] [address] [place] Clerk: Low Adames MD Chloride [Moles/Vol] 102 mmol/L Normal 98-107 [facility] Comment on above: Performed By: #### C BC, BMP #### [address] [address] [place] Clerk: Low Adames MD CO2 [Moles/Vol] 26 mmol/L Normal 20-31 [facility] Comment on above: Performed By: #### C BC, BMP #### [address] [address] [place] Clerk: Low Aadmes MD Creatinine [Mass/Vol] 0.81 mg/dL Normal 0.50-0.90 [facility] Comment on above: Performed By: #### C BC, BMP #### [address] [address] [place] Clerk: Low Adames MD GFR, Amer >60 Normal >60 [facility] Comment on above: Performed By: #### C BC, BMP #### [facility] [address] [place] [phone] [place] Clerk: Lwo Adames MD GFR,non Amer >60 Normal >60 [facility] Comment on above: Performed By: #### C BC, BMP #### [address] [address] [place] Clerk: Low Adames MD Glucose [Mass/Vol] 95 mg/dL Normal 70-99 [facility] Comment on above: Performed By: #### C BC, BMP #### [address] [address] [place] Clerk: Low Adames MD Potassium [Moles/Vol] 4.5 mmol/L Normal 3.7-5.3 [facility] Comment on above: Performed By: #### C BC, BMP #### [address] [address] [place] Clerk: Low Adames MD Sodium [Moles/Vol] 141 mmol/L Normal 135-144 [facility] Comment on above: Performed By: #### C BC, BMP #### [facility] [employer] [address] [place] [address] [place] Clerk: Low Adames MD Urea nitrogen [Mass/Vol] 16 mg/dL Normal 6-20 [facility] Comment on above: Performed By: #### C BC, BMP #### [address] [address] [place] Clerk: Low Adames MD BUN/CRE Ratio NOT REPORTED Normal -20 [facility] Comment on above: Performed By: #### C BC, BMP #### [address] [address] [place] Clerk: Low Adames MD Staging: NOT REPORTED Normal [facility] Comment on above: Performed By: #### C BC, BMP #### [address] [address] [place] Clerk: Low Adames MD CBCon 09-29-2019 Erythrocyte distribution width (RBC) [Ratio] 14.5 % High 11.8-14.4 [facility] Comment on above: Performed By: #### C BC, BMP #### [address] [address] [place] Clerk: Low Adames MD Hematocrit (Bld) [Volume fraction] 38.7 % Normal 36.3-47.1 [facility] Comment on above: Performed By: #### C BC, BMP #### [address] [address] [place] Clerk: Low Adames MD Hemoglobin (Bld) [Mass/Vol] 12.8 g/dL Normal 11.9-15.1 [facility] Comment on above: Performed By: #### C BC, BMP #### [address] [address] [place] Clerk: Low Adames MD MCH (RBC) [Entitic mass] 31.8 pg Normal 25.2-33.5 [facility] Comment on above: Performed By: #### C BC, BMP #### [address] [address] [place] Clerk: Low Adames MD MCHC (RBC) [Mass/Vol] 33.1 g/dL Normal 28.4-34.8 [facility] Comment on above: Performed By: #### C BC, BMP #### [address] [address] [place] Clerk: Low Adames MD MCV (RBC) [Entitic vol] 96.0 fL Normal 82.6-102.9 [facility] Comment on above: Performed By: #### C BC, BMP #### [facility] [employer] [address] [place] [address] [place] Clerk: Low Adames MD NRBC Automated 0.0 per 100 WBC Normal 0.0 [facility] Comment on above: Performed By: #### C BC, BMP #### [address] [address] [place] Clerk: Low Adames MD Platelet mean volume (Bld) [Entitic vol] 9.8 fL Normal 8.1-13.5 [facility] Comment on above: Performed By: #### C BC, BMP #### [facility] [employer] [address] [place] [address] [place] Clerk: Low Adames MD Platelets (Bld) [#/Vol] 332 10*3/uL Normal 138-453 [facility] Comment on above: Performed By: #### C BC, BMP #### [facility] [employer] [address] [place] [address] [place] Clerk: Low Adames MD RBC (Bld) [#/Vol] 4.03 10*6/uL Normal 3.95-5.11 [facility] Comment on above: Performed By: #### C BC, BMP #### [address] [address] [place] Clerk: Low Adames MD WBC (Bld) [#/Vol] 6.5 10*3/uL Normal 3.5-11.3 [facility] Comment on above: Performed By: #### C BC, BMP #### [address] [address] [place] Clerk: Low Adames MD Erythrocyte distribution width (RBC) [Ratio] 14.5 % High 11.8 - 14.4 % [place] Hematocrit (Bld) [Volume fraction] 38.7 % 36.3 - 47.1 % [place] Hemoglobin (Bld) [Mass/Vol] 12.8 g/dL 11.9 - 15.1 g/dL [place] Interpretation and review of laboratory results Abnormal [place] MCH (RBC) [Entitic mass] 31.8 pg 25. 2 - 33.5 pg [place] MCHC (RBC) [Mass/Vol] 33.1 g/dL 28.4 - 34.8 g/dL [place] MCV (RBC) [Entitic vol] 96.0 fL 82.6 - 102.9 fL [place] Platelet mean volume (Bld) [Entitic vol] 9.8 fL 8.1 - 13.5 fL [place] Platelets (Bld) [#/Vol] 332 10*3/uL [place] RBC (Bld) [#/Vol] 4.03 10*6/uL 3.95 - 5.11 m/uL [place] WBC (Bld) [#/Vol] 0.0 10*3/uL 0.0 per 100 WBC [place] WBC (Bld) [#/Vol] 6.5 10*3/uL [place] Basic Metabolic Panelon -2 Anion gap [Moles/Vol] 15 mmol/L 9 - 17 mmol/L [place] Bun/Cre Ratio NOT REPORTED [place] Calcium [Mass/Vol] 9.2 mg/dL 8.6 - 10. 4 mg/dL [place] Chloride [Moles/Vol] 105 mmol/L 98 - 10 7 mmol/L [place] CO2 [Moles/Vol] 24 mmol/L 20 - 31 mmol/L [place] Creatinine [Mass/Vol] 0.79 mg/dL 0.5 - 0.9 mg/dL [place] GFR >60 >60 mL/min [place] GFR Non- >60 >60 mL/min [place] GFR/1.73 sq M predicted among non-blacks MDRD (S/P/Bld) [Vol rate/Area] NOT REPORTED [place] GFR/1.73 sq M predicted among non-blacks MDRD (S/P/Bld) [Vol rate/Area] [place] Comment on above: Average GFR for 50-5 9 years old: 93 mL/min/1.73sq m Chronic Kidney Disease: <60 mL/min/1.73sq m Kidney failure: <15 mL/min/1.73sq m eGFR calculated using average adult body mass. Additional eGFR calculator available at: http://www.Risktail/multiple_crcl_2012.htm Glucose [Mass/Vol] 88 mg/dL 70 - 99 mg/dL [place] Potassium [Moles/Vol] 4.2 mmol/L 3.7 - 5.3 mmol/L [place] Sodium [Moles/Vol] 144 mmol/L 135 - 144 mmol/L [place] Urea nitrogen [Mass/Vol] 12 mg/dL 6 - 20 mg/dL [place] Basic Metabolic Profon 09-22 (cont.) Normal [facility] Comment on above: Result Comment: Aver age GFR for 50-59 years old: 93 mL/min/1.73sq m Chronic Kidney Disease: <60 mL/min/1.73sq m Kidney failure: <15 mL/min/1.73sq m eGFR calculated using average adult body mass. Additional eGFR calculator available at: http://www.Risktail/multiple_crcl_2011.htm Performed By: #### C LUCRECIA, BMP #### [facility] [address] [place], [place] [phone] [place] Clerk: Low Adames MD Anion gap [Moles/Vol] 15 mmol/L Normal 9-17 [facility] Comment on above: Performed By: #### C LUCRECIA, BMP #### [facility] [employer] [address] [place] [address] [place] Clerk: Low Adames MD Calcium [Mass/Vol] 9.2 mg/dL Normal 8.6-10.4 [facility] Comment on above: Performed By: #### C BC, BMP #### [facility] [address] [place] [address] [place] Clerk: Low Adames MD Chloride [Moles/Vol] 105 mmol/L Normal 98-107 [facility] Comment on above: Performed By: #### C BC, BMP #### [facility] [address] [place] [address] [place] Clerk: Low Adames MD CO2 [Moles/Vol] 24 mmol/L Normal 20-31 [facility] Comment on above: Performed By: #### C BC, BMP #### [address] [address] [place] Clerk: Low Adames MD Creatinine [Mass/Vol] 0.79 mg/dL Normal 0.50-0.90 [facility] Comment on above: Performed By: #### C BC, BMP #### [address] [address] [place] Clerk: Low Adames MD GFR, Amer >60 Normal >60 [facility] Comment on above: Performed By: #### C BC, BMP #### [address] [address] [place] Clerk: Low Adames MD GFR,non Amer >60 Normal >60 [facility] Comment on above: Performed By: #### C BC, BMP #### [facility] [address] [place] [address] [place] Clerk: Low Adames MD Glucose [Mass/Vol] 88 mg/dL Normal 70-99 [facility] Comment on above: Performed By: #### C BC, BMP #### [facility] [address] [place] [address] [place] Clerk: Low Adames MD Potassium [Moles/Vol] 4.2 mmol/L Normal 3.7-5.3 [facility] Comment on above: Performed By: #### C BC, BMP #### [facility] [address] [place] [address] [place] Clerk: Low Adames MD Sodium [Moles/Vol] 144 mmol/L Normal 135-144 [facility] Comment on above: Performed By: #### C BC, BMP #### [facility] [employer] [address] [place] [address] [place] Clerk: Low Adames MD Urea nitrogen [Mass/Vol] 12 mg/dL Normal - [facility] Comment on above: Performed By: #### C BC, BMP #### [facility] [employer] [address] [place] [address] [place] Clerk: Lwo Adames MD BUN/CRE Ratio NOT REPORTED Normal 04-21 [facility] Comment on above: Performed By: #### C BC, BMP #### [facility] [employer] [address] [place] [address] [place] Clerk: Low Adames MD Staging: NOT REPORTED Normal [facility] Comment on above: Performed By: #### C BC, BMP #### [facility] [employer] [address] [place] [address] [place] Clerk: Low Adames MD CBCon 09-22-2019 Erythrocyte distribution width (RBC) [Ratio] 14.8 % High 11.8-14.4 [facility] Comment on above: Performed By: #### C BC, BMP #### [facility] [employer] [address] [place] [address] [place] Clerk: Low Adames MD Hematocrit (Bld) [Volume fraction] 36.8 % Normal 36.3-47.1 [facility] Comment on above: Performed By: #### C BC, BMP #### [facility] [employer] [address] [place] [address] [place] Clerk: Low Adames MD Hemoglobin (Bld) [Mass/Vol] 11.9 g/dL Normal 11.9-15.1 [facility] Comment on above: Performed By: #### C BC, BMP #### [address] [address] [place] Clerk: Low Adames MD MCH (RBC) [Entitic mass] 30.9 pg Normal 25.2-33.5 [facility] Comment on above: Performed By: #### C BC, BMP #### [address] [address] [place] Clerk: Low Adames MD MCHC (RBC) [Mass/Vol] 32.3 g/dL Normal 28.4-34.8 [facility] Comment on above: Performed By: #### C LUCRECIA, BMP #### [address] [address] [place] Clerk: Low Adames MD MCV (RBC) [Entitic vol] 95.6 fL Normal 82.6-102.9 [facility] Comment on above: Performed By: #### C BC, BMP #### [address] [address] [place] Clerk: Low Adames MD NRBC Automated 0.0 per 100 WBC Normal 0.0 [facility] Comment on above: Performed By: #### C BC, BMP #### [address] [address] [place] Clerk: Low Adames MD Platelet mean volume (Bld) [Entitic vol] 10.2 fL Normal 8.1-13.5 [facility] Comment on above: Performed By: #### C BC, BMP #### [address] [address] [place] Clerk: Low Adames MD Platelets (Bld) [#/Vol] 200 10*3/uL Normal 138-453 [facility] Comment on above: Performed By: #### C BC, BMP #### [facility] [address] [place], [place] [phone] [place] Clerk: Low Adames MD RBC (Bld) [#/Vol] 3.85 10*6/uL Low 3.95-5.11 [facility] Comment on above: Performed By: #### C BC, BMP #### [facility] [facility] [address], [place] [id number] [place] Clerk: Low Adames MD WBC (Bld) [#/Vol] 4.4 10*3/uL Normal 3.5-11.3 [facility] Comment on above: Performed By: #### C BC, BMP #### [facility] [employer] [address], [place] [id number] [place] Clerk: Low Adames MD Erythrocyte distribution width (RBC) [Ratio] 14.8 % High 11.8 - 14.4 % [place], [place] Hematocrit (Bld) [Volume fraction] 36.8 % 36.3 - 47.1 % [place], [place] Hemoglobin (Bld) [Mass/Vol] 11.9 g/dL 11.9 - 15.1 g/dL [place], [place] Interpretation and review of laboratory results Abnormal [place] MCH (RBC) [Entitic mass] 30.9 pg 25. 2 - 33.5 pg [place] MCHC (RBC) [Mass/Vol] 32.3 g/dL 28.4 - 34.8 g/dL [place] MCV (RBC) [Entitic vol] 95.6 fL 82.6 - 102.9 fL [place] Platelet mean volume (Bld) [Entitic vol] 10.2 fL 8.1 - 13.5 fL [place] Platelets (Bld) [#/Vol] 200 10*3/uL [place] RBC (Bld) [#/Vol] 3.85 10*6/uL Low 3.95 - 5.11 m/uL [place] WBC (Bld) [#/Vol] 0.0 10*3/uL 0.0 per 100 WBC [place] WBC (Bld) [#/Vol] 4.4 10*3/uL [place] C difficile tox, PCRon 11-23 C difficile tox, PCR POSITIVE: C diffici le tcdB nucleic acid detected by RT-PCR. Abnormal CDTNEG [facility] Comment on above: Performed By: #### C DPCR #### [facility] [address] [place] [address] [place] Clerk: Aryan Hinojosa MD [facility] [employer] [address] [place] [address] [id number] [place] Clerk: Low Adames MD Specimen Description .FECES Normal [facility] Comment on above: Result Comment: ROOM 409.1 Performed By: #### C DPCR #### [facility] [address] [place] [address] [place] Clerk: Aryan Hinojosa MD [facility] [employer] [address] [place] [address] [id number] [place] Clerk: Low Adames MD Vital Signs Date Time Vital Sign Value Performing Clinician Facility 11-03-2024 10:18-0400 Body height 172.7 cm [employer] DO Work Phone: [facility] 11-03-2024 10:18-0400 Body mass index (BMI) [Ratio] 31.93 kg/m2 ChelseaBitrockrtz DO Work Phone: [facility] 11-03-2024 10:18-0400 Body weight 95.25 kg [employer] DO Work Phone: [facility] 11-03-2024 10:18-0400 Diastolic blood pressure 84 mm[Hg] [employer] DO Work Phone: [facility] 11-03-2024 10:18-0400 Systolic blood pressure 118 mm[Hg] Chelsea Itheather DO Work Phone: [facility] 10-27-2024 09:00-0400 Diastolic blood pressure 65 mm[Hg] Neva Miller DO Work Phone: [facility] 10-27-2024 09:00-0400 Heart rate 100 /min Neva Dodgek DO Work Phone: [facility] 10-27-2024 09:00-0400 Systolic blood pressure 109 mm[Hg] Neva Dodgek DO Work Phone: [facility] 10-08-2024 20:00-0400 Body temperature 98.1 [degF] Neva Dodgek DO Work Phone: [facility] 10-08-2024 20:00-0400 Diastolic blood pressure 75 mm[Hg] Neva Dodgek DO Work Phone: [facility] 10-08-2024 20:00-0400 Heart rate 98 /min Neva Dodgek DO Work Phone: [facility] 10-08-2024 20:00-0400 Respiratory rate 16 /min Neva Miller DO Work Phone: [facility] 10-08-2024 20:00-0400 SaO2% (BldA) [Mass fraction] 91 % Neva Dodgek DO Work Phone: [facility] 10-08-2024 20:00-0400 Systolic blood pressure 130 mm[Hg] Neva Dodgek DO Work Phone: [facility] 10-08-2024 06:00-0400 Body weight 102.5 kg Neva Miller DO Work Phone: [facility] 10-07-2024 08:00-0500 Inhaled oxygen flow rate 2 L/min Neva Dodgek DO Work Phone: [facility] 10-05-2024 16:20-0500 Body height 175.26 cm Neva Dodgek DO Work Phone: [facility] 10-05-2024 00:00-0500 Inhaled oxygen flow rate 2 L/min Neva Dodgek DO Work Phone: [facility] 10-04-2024 23:22-0500 Diastolic blood pressure 62 mm[Hg] Neva Dark DO Work Phone: [facility] 10-04-2024 23:22-0500 Heart rate 99 /min Neva Dark DO Work Phone: [facility] 10-04-2024 23:22-0500 Respiratory rate 18 /min Neva Dodgek DO Work Phone: [facility] 10-04-2024 23:22-0500 SaO2% (BldA) [Mass fraction] 95 % Neva Dark DO Work Phone: [facility] 10-04-2024 23:22-0500 Systolic blood pressure 114 mm[Hg] Neva Dodgek DO Work Phone: [facility] 10-04-2024 18:54-0500 Body temperature 98.4 [degF] Neva Dodgek DO Work Phone: [facility] 10-04-2024 17:24-0500 Body height 175.26 cm Neva Dodgek DO Work Phone: [facility] 10-04-2024 17:24-0500 Body weight 103 kg Neva Dark DO Work Phone: [facility] 09-06-2024 09:24-0500 Diastolic blood pressure 77 mm[Hg] Tammy ALLAN [facility] 09-06-2024 09:24-0500 Heart rate 90 /min Tammy ALLAN [facility] 09-06-2024 09:24-0500 Respiratory rate 16 /min Tammy ALLAN [facility] 09-06-2024 09:24-0500 Systolic blood pressure 119 mm[Hg] Tammy ALLAN [facility] 08-16-2024 13:07-0500 Diastolic blood pressure 84 mm[Hg] Tammy ALLAN [facility] 08-16-2024 13:07-0500 Heart rate 86 /min Tammy ALLAN [facility] 08-16-2024 13:07-0500 Respiratory rate 16 /min Tammy ALLAN [facility] 08-16-2024 13:07-0500 Systolic blood pressure 124 mm[Hg] Tammy ALLAN [facility] 08-08-2024 13:27-0500 Diastolic blood pressure 50 mm[Hg] Neva Miller DO Work Phone: [facility] 08-08-2024 13:27-0500 Heart rate 67 /min Neva Miller DO Work Phone: [facility] 08-08-2024 13:27-0500 Respiratory rate 16 /min Neva Miller DO Work Phone: [facility] 08-08-2024 13:27-0500 SaO2% (BldA) [Mass fraction] 97 % Neva Miller DO Work Phone: [facility] 08-08-2024 13:27-0500 Systolic blood pressure 119 mm[Hg] Neva Miller DO Work Phone: [facility] 08-08-2024 12:35-0500 Body temperature 98 [degF] Neva Vaschak DO Work Phone: [facility] 08-08-2024 12:10-0500 Inhaled oxygen flow rate 8 L/min Neva Vaschak DO Work Phone: [facility] 08-08-2024 09:43-0500 Body height 175.26 cm Neva Vaschak DO Work Phone: [facility] 08-08-2024 09:43-0500 Body weight 99.79 kg Neva Vaselvink DO Work Phone: [facility] 05-23-2024 16:18-0400 Inhaled oxygen flow rate 1 L/min DO Neva Vaschak Work Phone: [facility] 05-23-2024 16:18-0400 SaO2% (BldA) [Mass fraction] 96 % DO Neva Vaschak Work Phone: [facility] 05-23-2024 16:00-0400 Body temperature 97.7 [degF] DO Neva Vaschak Work Phone: [facility] 05-23-2024 16:00-0400 Diastolic blood pressure 79 mm[Hg] DO Neva Vaschak Work Phone: [facility] 05-23-2024 16:00-0400 Heart rate 96 /min DO Neva Vaschak Work Phone: [facility] 05-23-2024 16:00-0400 Respiratory rate 20 /min DO Neva Vaschak Work Phone: [facility] 05-23-2024 16:00-0400 Systolic blood pressure 126 mm[Hg] DO Neva Vaschak Work Phone: [facility] 05-23-2024 05:18-0400 Body weight 107.5 kg DO Neva Vaschak Work Phone: [facility] 05-19-2024 14:17-0400 Body height 175.26 cm DO Neva Vaschak Work Phone: [facility] 05-18-2024 22:00-0400 Body temperature 97.7 [degF] DO Neva Vaschak Work Phone: [facility] 05-18-2024 22:00-0400 Diastolic blood pressure 64 mm[Hg] DO Neva Vaschak Work Phone: [facility] 05-18-2024 22:00-0400 Heart rate 109 /min DO Neva Vaschak Work Phone: [facility] 05-18-2024 22:00-0400 Respiratory rate 20 /min DO Neva Vaschak Work Phone: [facility] 05-18-2024 22:00-0400 SaO2% (BldA) [Mass fraction] 96 % DO Neva Vaschak Work Phone: [facility] 05-18-2024 22:00-0400 Systolic blood pressure 125 mm[Hg] DO Neva Vaschak Work Phone: [facility] 05-18-2024 16:55-0400 Body height 162.56 cm DO Neva Vaschak Work Phone: [facility] 05-18-2024 16:55-0400 Body weight 106.9 kg DO Neva Vaschak Work Phone: [facility] 05-16-2024 09:41-0400 Body height 175.26 cm Neva Vaschak DO Work Phone: [facility] 05-16-2024 09:41-0400 Body weight 92.3 kg Neva Vaschak DO Work Phone: [facility] 05-16-2024 09:41-0400 Diastolic blood pressure 74 mm[Hg] Neva Vaschak DO Work Phone: [facility] 05-16-2024 09:41-0400 Heart rate 72 /min Neva Vaschak DO Work Phone: [facility] 05-16-2024 09:41-0400 Respiratory rate 18 /min Neva Dark DO Work Phone: [facility] 05-16-2024 09:41-0400 SaO2% (BldA) [Mass fraction] 96 % Neva Vaschak DO Work Phone: [facility] 05-16-2024 09:41-0400 Systolic blood pressure 115 mm[Hg] Neva Vaschak DO Work Phone: [facility] 02-09-2024 13:44-0400 Body temperature 98.6 [degF] Tammy ALLAN [facility] 02-09-2024 13:44-0400 Diastolic blood pressure 86 mm[Hg] Tammy ALLAN [facility] 02-09-2024 13:44-0400 Heart rate 71 /min Tammy ALLAN [facility] 02-09-2024 13:44-0400 Respiratory rate 16 /min Tammy ALLAN [facility] 02-09-2024 13:44-0400 Systolic blood pressure 119 mm[Hg] Tammy ALLAN [facility] 10-22-2023 09:00-0400 Diastolic blood pressure 81 mm[Hg] DO Neva Dark Work Phone: [facility] 10-22-2023 09:00-0400 Heart rate 98 /min DO Neva Vaschak Work Phone: [facility] 10-22-2023 09:00-0400 Systolic blood pressure 113 mm[Hg] DO Neva Vaschak Work Phone: [facility] 10-17-2023 17:00-0400 Diastolic blood pressure 66 mm[Hg] DO Neva Vaschak Work Phone: [facility] 10-17-2023 17:00-0400 Heart rate 87 /min DO Neva Vaschak Work Phone: [facility] 10-17-2023 17:00-0400 Respiratory rate 18 /min DO Neva Jtchak Work Phone: [facility] 10-17-2023 17:00-0400 SaO2% (BldA) [Mass fraction] 94 % DO Neva Vaschak Work Phone: [facility] 10-17-2023 17:00-0400 Systolic blood pressure 116 mm[Hg] DO Neva Vaschak Work Phone: [facility] 10-17-2023 16:14-0400 Inhaled oxygen flow rate 2 L/min DO Neva Jtchak Work Phone: [facility] 10-17-2023 12:24-0400 Body height 175.26 cm DO Neva Vaschak Work Phone: [facility] 10-17-2023 12:24-0400 Body weight 108.6 kg DO Neva Vaschak Work Phone: [facility] 10-17-2023 12:22-0400 Body temperature 98.2 [degF] DO Neva Jtchak Work Phone: [facility] 08-12-2023 09:50-0500 Body height 149.86 cm DO Neva Vaschak Work Phone: [facility] 08-12-2023 09:50-0500 Body weight 106.59 kg DO Neva Jtchak Work Phone: [facility] 07-28-2023 08:32-0500 Body temperature 97.8 [degF] DO Neva Vaschak Work Phone: [facility] 07-28-2023 08:32-0500 Body weight 106.59 kg DO Neva Vaschak Work Phone: [facility] 07-28-2023 08:32-0500 Diastolic blood pressure 83 mm[Hg] DO Neva Vaschak Work Phone: [facility] 07-28-2023 08:32-0500 Heart rate 93 /min DO Neva Vaschak Work Phone: [facility] 07-28-2023 08:32-0500 Respiratory rate 16 /min DO Neva Vaschak Work Phone: [facility] 07-28-2023 08:32-0500 SaO2% (BldA) [Mass fraction] 96 % DO Neva Vaschak Work Phone: [facility] 07-28-2023 08:32-0500 Systolic blood pressure 130 mm[Hg] DO Neva Vaschak Work Phone: [facility] 11-22-2022 00:19-0400 Diastolic blood pressure 78 mm[Hg] DO Neva Vaschak Work Phone: [facility] 11-22-2022 00:19-0400 Heart rate 88 /min DO Neav Jtchak Work Phone: [facility] 11-22-2022 00:19-0400 Respiratory rate 20 /min DO Neva Jtchak Work Phone: [facility] 11-22-2022 00:19-0400 SaO2% (BldA) [Mass fraction] 98 % DO Neva Vaschak Work Phone: [facility] 11-22-2022 00:19-0400 Systolic blood pressure 136 mm[Hg] DO Neva Vaschak Work Phone: [facility] 11-21-2022 18:23-0400 Body height 175.26 cm DO Neva Vaschak Work Phone: [facility] 11-21-2022 18:23-0400 Body temperature 97.8 [degF] DO Neva Vaschak Work Phone: [facility] 11-21-2022 18:23-0400 Body weight 108 kg DO Neva Dark Work Phone: [facility] 09-21-2022 09:48-0500 Body height 170.18 cm DO Neva Dark Work Phone: [facility] 09-21-2022 09:48-0500 Body weight 104.32 kg DO Neva Dark Work Phone: [facility] 09-15-2022 14:40-0500 Blood Pressure Location Tammy ALLAN [facility] 09-15-2022 14:40-0500 Diastolic blood pressure 79 mm[Hg] Tammy ALLAN [facility] 09-15-2022 14:40-0500 Heart rate 78 /min Tammydennis ALLAN [facility] 09-15-2022 14:40-0500 Systolic blood pressure 127 mm[Hg] Tammydennis ALLAN [facility] 09-09-2022 13:30-0500 Diastolic blood pressure 85 mm[Hg] DO Neva Dark Work Phone: [facility] 09-09-2022 13:30-0500 Heart rate 81 /min DO Neva Dark Work Phone: [facility] 09-09-2022 13:30-0500 Systolic blood pressure 143 mm[Hg] DO Neva Jtchak Work Phone: [facility] 07-06-2022 08:06-0500 Body height 175.26 cm DO Neva Jtchak Work Phone: [facility] 07-06-2022 08:06-0500 Body temperature 98 [degF] DO Neva Vaschak Work Phone: [facility] 07-06-2022 08:06-0500 Body weight 104.6 kg DO Neva Vaschak Work Phone: [facility] 07-06-2022 08:06-0500 Diastolic blood pressure 73 mm[Hg] DO Neva Vaschak Work Phone: [facility] 07-06-2022 08:06-0500 Heart rate 94 /min DO Neva Vaschak Work Phone: [facility] 07-06-2022 08:06-0500 Respiratory rate 20 /min DO Neva Jtchak Work Phone: [facility] 07-06-2022 08:06-0500 SaO2% (BldA) [Mass fraction] 95 % DO Neva Vaschak Work Phone: [facility] 07-06-2022 08:06-0500 Systolic blood pressure 114 mm[Hg] DO Neva Vaschak Work Phone: [facility] 06-29-2022 10:22-0500 Respiratory rate 18 /min DO Neva Vaschak Work Phone: [facility] 06-29-2022 10:19-0500 Body height 175.26 cm DO Neva Vaschak Work Phone: [facility] 06-29-2022 10:19-0500 Body temperature 97.8 [degF] DO Neva Vaschak Work Phone: [facility] 06-29-2022 10:19-0500 Body weight 102.05 kg DO Neva Vaschak Work Phone: [facility] 06-29-2022 10:19-0500 Diastolic blood pressure 90 mm[Hg] DO Neva Vaschak Work Phone: [facility] 06-29-2022 10:19-0500 Heart rate 93 /min DO Neva Vaschak Work Phone: [facility] 06-29-2022 10:19-0500 SaO2% (BldA) [Mass fraction] 94 % DO Neva Dark Work Phone: [facility] 06-29-2022 10:19-0500 Systolic blood pressure 166 mm[Hg] DO Neva Dark Work Phone: [facility] 05-26-2022 13:50-0400 Diastolic blood pressure 80 mm[Hg] DO Neva Dark Work Phone: [facility] 05-26-2022 13:50-0400 Heart rate 75 /min DO Neva Dark Work Phone: [facility] 05-26-2022 13:50-0400 Respiratory rate 16 /min DO Neva Dark Work Phone: [facility] 05-26-2022 13:50-0400 SaO2% (BldA) [Mass fraction] 94 % DO Neva Dark Work Phone: [facility] 05-26-2022 13:50-0400 Systolic blood pressure 124 mm[Hg] DO Neva Dark Work Phone: [facility] 05-26-2022 13:08-0400 Body temperature 97 [degF] DO Neva Dark Work Phone: [facility] 05-26-2022 11:00-0400 Body height 170.18 cm DO Neva Dark Work Phone: [facility] 05-26-2022 11:00-0400 Body mass index (BMI) [Ratio] 35.2 kg/m2 DO Neva Dark Work Phone: [facility] 05-26-2022 11:00-0400 Body weight 102.05 kg DO Neva Dark Work Phone: [facility] 05-05-2022 11:22-0400 Blood Pressure Location Tammy ALLAN [facility] 05-05-2022 11:22-0400 Diastolic blood pressure 80 mm[Hg] Tammy LALAN [facility] 05-05-2022 11:22-0400 Heart rate 91 /min Tammy ALLAN [facility] 05-05-2022 11:22-0400 Systolic blood pressure 124 mm[Hg] Tammy ALLAN [facility] 12-11-2021 11:07-0400 Body temperature 97.5 [degF] DO Neva Miller Work Phone: [facility] 12-11-2021 11:07-0400 Body weight 96.61 kg DO Neva Dodgek Work Phone: [facility] 12-11-2021 11:07-0400 Diastolic blood pressure 77 mm[Hg] DO Neva Dark Work Phone: [facility] 12-11-2021 11:07-0400 Heart rate 83 /min DO Neva Dark Work Phone: [facility] 12-11-2021 11:07-0400 Respiratory rate 16 /min DO Neva Dark Work Phone: [facility] 12-11-2021 11:07-0400 SaO2% (BldA) [Mass fraction] 96 % DO Neva Jtchak Work Phone: [facility] 12-11-2021 11:07-0400 Systolic blood pressure 113 mm[Hg] DO Neva Dark Work Phone: [facility] 12-11-2021 10:58-0400 Body height 175.26 cm DO Neva Dark Work Phone: [facility] 10-28-2021 09:59-0400 Blood Pressure Location CÉSAR MENDOZA [facility] 10-28-2021 09:59-0400 Diastolic blood pressure 76 mm[Hg] CÉSAR KELLY [facility] [place] 10-28-2021 09:59-0400 Heart rate 92 /min CÉSAR MENDOZA [facility] [place] 10-28-2021 09:59-0400 Respiratory rate 16 /min CÉSAR BROOKSRY [facility] [place] 10-28-2021 09:59-0400 Systolic blood pressure 118 mm[Hg] CÉSAR BROOKSRY [facility] [place] 07-14-2021 15:15-0500 Body temperature 96.8 [degF] Americo Maldonado Other [employer] [facility] [employer] Other 07-14-2021 15:15-0500 Diastolic blood pressure 79 mm[Hg] Americo Maldonado Other [employer] Other 07-14-2021 15:15-0500 Systolic blood pressure 147 mm[Hg] Americo Maldonado Other [employer] Other Encounters Encounter Date Encounter Type Care Provider Facility Start: 12-13-2024 ambulatory Tammy Gordon ty:MONIKA Thompson Start: 11-16-2024 ambulatory Tammy Gordon ty:[id number] Start: 11-10-2024 End: 11-10-2024 Patient encounter procedure Emre Mendes DO [facility] Work Phone: Start: 11-10-2024 End: 11-10-2024 ambulatory Emre Mendes DO [facility] Work Phone: Start: 11-03-2024 End: 11-03-2024 Office outpatient new 45 minutes Chelsea H Itzkowitz DO Work Phone: [facility] Comment on above: Cholelithiasis Start: 11-03-2024 End: 11-03-2024 ambulatory CHELSEA H ITZKOWITZ Not Available Start: 11-02-2024 ambulatory Mayra X Orzech Facilit y:[facility] [place] Start: 11-01-2024 End: 11-01-2024 Clinisync Result Encounter Generic External Data Provider [facility] External Department Unsolicited Start: 11-01-2024 End: 11-01-2024 Clinisync Result Encounter Generic External Data Provider [facility] External Department Unsolicited Start: 11-01-2024 End: 11-01-2024 ambulatory Neva Miller DO Work Phone: [facility] Work Phone: Start: 11-01-2024 End: 11-01-2024 Departed Referred Neva Miller DO Work Phone: [facility] Start: 10-27-2024 End: 10-27-2024 Discharged Recurring Neva Miller DO Work Phone: [facility]In[facility] Therapy - O/P Work Phone: Start: 10-27-2024 End: 10-27-2024 ambulatory Neva Jtdarnell DO Work Phone: [facility] Work Phone: Start: 10-25-2024 End: 10-26-2024 External Result Encounter Neva Miller DO Work Phone: [facility] Unsolicited Start: 10-25-2024 End: 10-26-2024 External Result Encounter Neva Miller DO Work Phone: [facility] External [facility] Unsolicited Start: 10-25-2024 End: 10-25-2024 ambulatory Neva Miller DO Work Phone: [facility] Work Phone: Start: 10-25-2024 End: 10-25-2024 Patient encounter procedure Neva Miller DO Work Phone: [facility] Work Phone: Start: 10-18-2024 End: 10-18-2024 ambulatory Tammy ALLAN Facility:[facility]IK[facility] Start: 10-12-2024 End: 10-12-2024 Bamboo flowsheet Rachael Salter [employer] Work Phone: [facility] Start: 10-12-2024 End: 10-12-2024 Bamboo flowsheet Rachael Salter [employer] Work Phone: [facility] Start: 10-12-2024 End: 10-12-2024 ambulatory RACHAEL SALTER Not Available Start: 10-08-2024 Non-patient / Non-visit Neva Miller DO Work Phone: [facility] Cardiology Work Phone: Start: 10-06-2024 Non-patient / Non-visit Neva Miller DO Work Phone: [facility] Infect Dis Work Phone: Start: 10-04-2024 End: 10-08-2024 Evaluation and management of inpatient Neva Miller DO Work Phone: [facility] [employer] [employer] Work Phone: Start: 10-03-2024 End: 10-04-2024 ambulatory Bong Rio JENNINGS Facility:[id number] Start: 10-03-2024 End: 10-03-2024 Patient encounter procedure Mayra Grier [facility] Start: 09-06-2024 End: 09-06-2024 ambulatory Tammy ALLAN Facility:[facility] [place] Start: 09-06-2024 End: 09-06-2024 Patient encounter procedure Tammy ALLAN [facility] Start: 08-16-2024 End: 08-16-2024 ambulatory Tammy ALLAN Facility:[facility] [place] Start: 08-16-2024 End: 08-16-2024 Patient encounter procedure Tammy ALLAN [facility] Start: 08-08-2024 End: 08-08-2024 Admission to same day surgery center Neva Jtdarnell DO Work Phone: [facility] [place] Start: 08-08-2024 End: 08-08-2024 ambulatory Neva Miller DO Work Phone: [facility] Work Phone: Start: 08-08-2024 End: 08-08-2024 ambulatory Tammy ALLAN Facility:[id number] Start: 07-24-2024 End: 07-24-2024 Patient encounter procedure Neva Miller DO Work Phone: [facility]-Dsd-Jevdnwlc Testing Work Phone: Start: 07-24-2024 End: 07-24-2024 ambulatory Neva Jtelvinnichol Facility:[facility] Start: 06-21-2024 ambulatory Tammy Burk ALLAN Facili ty:[facility] [place] Start: 06-07-2024 ambulatory Tammy R ALLAN Facili ty:[facility] [place] Start: 05-30-2024 End: 05-30-2024 ambulatory Neva Jtelvinnichol Facility:[facility] Start: 05-30-2024 End: 05-30-2024 Departed Referred Neva Miller DO Work Phone: [facility] [place] Start: 05-19-2024 Non-patient / Non-visit DO Zaid Miller Work Phone: [facility] Infectious Disease Work Phone: Start: 05-18-2024 End: 05-23-2024 Evaluation and management of inpatient DO Neva Miller Work Phone: [facility] [employer] Work Phone: Start: 05-16-2024 End: 05-16-2024 Patient encounter procedure DO Neva Miller Work Phone: [facility]-Pre-Surgical Testing Work Phone: Start: 05-16-2024 End: 05-16-2024 ambulatory DO Neva Miller Work Phone: [facility] Work Phone: Start: 05-16-2024 Encounter for preprocedural laboratory examination Tammy Allan [facility] Start: 05-16-2024 End: 05-16-2024 Patient encounter procedure DO Neva Miller Work Phone: [facility]-CT Scan [facility] [place] Work Phone: Start: 05-16-2024 End: 05-16-2024 ambulatory DO Neva Miller Work Phone: [facility] Work Phone: Start: 05-04-2024 End: 05-04-2024 Office outpatient visit 25 minutes Cash Blair [employer] Work Phone: [facility] [facility] Comment on above: Localized osteoarthr itis of left knee (Primary Dx); LLQ pain Start: 05-04-2024 End: 05-04-2024 ambulatory CASH BLAIR Not Available Start: 02-09-2024 End: 02-09-2024 ambulatory Tammy ALLAN Facility:[facility] Start: 02-09-2024 End: 02-09-2024 Patient encounter procedure Tammy Burk JERRELL [facility] Start: 10-22-2023 End: 10-25-2023 ambulatory DO Neva Miller Work Phone: [facility] Work Phone: Start: 10-22-2023 End: 10-25-2023 Discharged Recurring DO Neva Miller Work Phone: [facility]Infusion Therapy - O/P Work Phone: Start: 10-17-2023 End: 10-17-2023 Emergency department patient visit DO Neva Miller Work Phone: [facility]-Emergency Room Work Phone: Start: 09-17-2023 End: 09-17-2023 ambulatory DO Neva Miller Work Phone: [facility] Work Phone: Start: 09-17-2023 End: 09-17-2023 Patient encounter procedure DO Neva Miller Work Phone: [facility]-Center for Breast Care Work Phone: Start: 08-12-2023 End: 08-12-2023 ambulatory DO Neva Miller Work Phone: [facility] Work Phone: Start: 08-12-2023 End: 08-12-2023 Patient encounter procedure DO Neva Miller Work Phone: [facility] [place] Work Phone: Start: 07-28-2023 End: 08-02-2023 ambulatory Neva Miller DO Work Phone: [facility] Work Phone: Start: 07-28-2023 End: 08-02-2023 Discharged Recurring Neva Miller DO Work Phone: [facility]Cancer Center Acute Work Phone: Start: 07-28-2023 Registered Recurring DO Neva Miller Work Phone: [facility] Work Phone: Start: 06-29-2023 End: 06-29-2023 ambulatory DO Neva Miller Work Phone: [facility] Work Phone: Start: 06-29-2023 End: 06-29-2023 Departed Referred DO Neva Miller Work Phone: [facility] Work Phone: Start: 06-08-2023 End: 06-08-2023 ambulatory DO Neva Miller Work Phone: [facility] Work Phone: Start: 06-08-2023 End: 06-08-2023 Patient encounter procedure DO Neva Miller Work Phone: [facility]-CT Scan [facility] [place] Work Phone: Start: 01-19-2023 End: 01-19-2023 ambulatory DO Tammy Hart Work Phone: [facility] Work Phone: Start: 01-19-2023 End: 01-19-2023 Patient encounter procedure DO Tammy Hart Work Phone: [facility]Ultrasound [facility] [place] Work Phone: Start: 12-15-2022 End: 12-15-2022 Departed Referred DO Tammy Hart Work Phone: [facility] [place] Work Phone: Start: 12-02-2022 End: 12-02-2022 ambulatory DO Neva Miller Work Phone: [facility] Work Phone: Start: 12-02-2022 End: 12-02-2022 Patient encounter procedure DO Neva Miller Work Phone: [facility] [place] Work Phone: Start: 11-21-2022 End: 11-22-2022 Emergency department patient visit DO Neva Miller Work Phone: [facility]Emer[facility] Work Phone: Start: 09-21-2022 End: 09-21-2022 ambulatory DO Neva Miller Work Phone: [facility] Work Phone: Start: 09-21-2022 End: 09-21-2022 Patient encounter procedure DO Neva Miller Work Phone: [facility] [place] Work Phone: Start: 09-15-2022 End: 09-15-2022 Patient encounter procedure Tammy ALLAN [facility] Start: 09-09-2022 End: 09-09-2022 ambulatory DO Neva Miller Work Phone: [facility] Work Phone: Start: 09-09-2022 End: 09-09-2022 Discharged Recurring DO Neva Miller Work Phone: [facility]-Infusion Therapy - O/P Work Phone: Start: 09-07-2022 End: 09-07-2022 ambulatory DO Neva Miller Work Phone: [facility] Work Phone: Start: 09-07-2022 End: 09-07-2022 Patient encounter procedure DO Neva Miller Work Phone: [facility] [place] Work Phone: Start: 07-06-2022 Registered Recurring DO Neva Miller Work Phone: [facility]-Cancer Center Work Phone: Start: 06-30-2022 End: 06-30-2022 ambulatory DO Neva Miller Work Phone: [facility] Work Phone: Start: 06-30-2022 End: 06-30-2022 Patient encounter procedure DO Neva Miller Work Phone: [facility] Start: 06-29-2022 End: 06-29-2022 Emergency department patient visit DO Neva Miller Work Phone: [facility]-Emergency Room Start: 05-27-2022 End: 05-27-2022 ambulatory DO Neva Miller Work Phone: [facility] Work Phone: Start: 05-27-2022 End: 05-27-2022 Patient encounter procedure DO Neva Miller Work Phone: [facility] Start: 05-26-2022 End: 05-26-2022 Admission to same day surgery center DO Neva Miller Work Phone: [facility]-Surgery Center [facility] [place] Start: 05-26-2022 End: 05-26-2022 ambulatory DO Neva Miller Work Phone: [facility] Work Phone: Start: 05-12-2022 End: 05-12-2022 Patient encounter procedure DO Neva Miller Work Phone: [facility]-Pre-Surgical Testing Start: 05-05-2022 End: 05-05-2022 Lab Drop off Tammy ALLAN [facility] Start: 05-05-2022 End: 05-05-2022 Patient encounter procedure Tammy Burk JERRELL [facility] Start: 03-27-2022 End: 03-27-2022 Patient encounter procedure DO Neva Miller Work Phone: [facility]CT Scan [facility] [place] Start: 12-30-2021 End: 12-30-2021 Patient encounter procedure DO Neva Miller Work Phone: [facility] Start: 12-24-2021 End: 12-24-2021 Patient encounter procedure DO Neva Miller Work Phone: [facility] Start: 12-11-2021 End: 12-11-2021 Registered Recurring DO Neva Jtdarnell Work Phone: [facility]-Cancer Center Start: 12-11-2021 Registered Recurring DO Neva Miller Work Phone: [facility]-Cancer Center Start: 10-28-2021 End: 10-28-2021 Patient encounter procedure CÉSAR MENDOZA [facility] Start: 10-17-2021 End: 10-17-2021 Patient encounter procedure DO Neva Miller Work Phone: [facility] Start: 10-15-2021 End: 10-15-2021 Patient encounter procedure DO Neva Miller Work Phone: [facility] Start: 10-02-2021 End: 10-02-2021 Patient encounter procedure DO Neva Miller Work Phone: [facility]-CT [address] Start: 07-14-2021 End: 07-14-2021 ambulatory Americo Maldonado Other [facility] [place] Other Start: 07-14-2021 Office outpatient ne w 45 minutes Amreico Maldonado [facility] Start: 10-28-2019 End: 10-29-2019 Patient encounter procedure [facility] Start: 10-28-2019 End: 10-28-2019 Subsequent hospital visit by physician Maty [facility] Start: 10-06-2019 End: 10-07-2019 Patient encounter procedure [facility] Start: 10-06-2019 End: 10-06-2019 Subsequent hospital visit by physician Maty [facility] Start: 09-29-2019 End: 09-30-2019 Patient encounter procedure [facility] Start: 09-29-2019 End: 09-29-2019 Subsequent hospital visit by physician Maty ROTH [facility] Start: 09-22-2019 End: 09-23-2019 Patient encounter procedure [facility] Start: 09-22-2019 End: 09-22-2019 Subsequent hospital visit by physician Maty Bolaños [facility] Start: 11-23-2018 End: 11-24-2018 Patient encounter procedure NARESH FOX [facility] Procedures Date Procedure Procedure Detail Performing Clinician Start: 11-01-2024 Urine culture Emre Rankin cCarttosha DO Start: 11-01-2024 ALL CBC WITH AUTO DIFF Generic External Data Provider Start: 11-01-2024 ECG 12-LEAD Generic Ex ternal Data Provider Start: 10-25-2024 Elastase pancreatic fecal qual/semi-michael Neva Miller DO Work Phone: Start: 10-08-2024 CT of abdomen and pe lvis without contrast Neva Miller DO Work Phone: Start: 10-07-2024 CT angiography of thorax Neva Miller DO Work Phone: Start: 10-04-2024 CT of abdomen and pe lvis without contrast Neva Miller DO Work Phone: Start: 10-04-2024 Bacteria identified in Blood by Culture Neva Miller DO Work Phone: Start: 10-04-2024 Urine culture Neva gutierrez DO Work Phone: Start: 08-08-2024 OR Cysto Suprapubic Tube Placement (Not Applicable) Neva Miller DO Work Phone: Start: 08-08-2024 Procedure involving suprapubic catheter Tammy ALLAN Start: 07-24-2024 Urine culture Neva gutierrez DO Work Phone: Start: 05-19-2024 Blood culture for ba cteria, including anaerobic screen Neva Miller DO Work Phone: Start: 05-18-2024 Computed tomography of abdomen and pelvis with contrast DO Neva Miller Work Phone: Start: 05-18-2024 CT angiography of thorax DO Neva Miller Work Phone: Start: 05-18-2024 Plain chest X-ray DO Danyelle Miller Work Phone: Start: 05-18-2024 Bacteria identified in Urine by Culture DO Neva Miller Work Phone: Start: 05-18-2024 Bacterial ID (NA Mul tiplex Assay) DO Neva Miller Work Phone: Start: 05-18-2024 Blood culture for ba cteria, including anaerobic screen DO Neva Miller Work Phone: Start: 05-18-2024 SARS-CoV-2, Influenz a & RSV (PCR) DO Neva Miller Work Phone: Start: 05-18-2024 Urine culture Neva gutierrez DO Work Phone: Start: 05-18-2024 Viral nucleic acid assay Neva Miller DO Work Phone: Start: 05-16-2024 Computed tomography of abdomen and pelvis with contrast DO Neva Miller Work Phone: Start: 10-17-2023 CT of head without contrast DO Neva Miller Work Phone: Start: 10-17-2023 Urine culture DO Neva Miller Work Phone: Start: 10-17-2023 Plain chest X-ray DO Danyelle Miller Work Phone: Start: 09-17-2023 End: 09-17-2023 Screening mammography of bilateral breasts DO Neva Miller Work Phone: Start: 08-12-2023 MRI of head DO Neva Miller Work Phone: Start: 06-08-2023 Computed tomography of abdomen and pelvis with contrast DO Neva Miller Work Phone: Start: 01-19-2023 Ultrasonography of b ilateral kidneys DO Tammy Michelclifford Work Phone: Start: 12-02-2022 Pelvic echography DO Danyelle Miller Work Phone: Start: 12-02-2022 Transvaginal echography DO Neva Miller Work Phone: Start: 11-21-2022 Computed tomography of abdomen and pelvis with contrast DO Neva Miller Work Phone: Start: 11-21-2022 Bacteria identification test DO Neva Miller Work Phone: Start: 11-21-2022 Mycology culture DO Zaid Miller Work Phone: Start: 11-21-2022 Trichomonas vaginali s detection DO Neva Miller Work Phone: Start: 11-21-2022 Urine culture DO Neva Miller Work Phone: Start: 09-21-2022 MRI of head DO Neva Miller Work Phone: Start: 09-15-2022 Removal of stent Matti ALLAN Start: 06-29-2022 Urine culture DO Neva Miller Work Phone: Start: 05-26-2022 Cystoscopy DO Neva Miller Work Phone: Start: 05-26-2022 Cystoscopic insertio n of ureteric stent Tammy ALLAN Start: 03-27-2022 Computed tomography of abdomen and pelvis with contrast DO Neva Miller Work Phone: Start: 12-02-2021 Cystoscopy Tammy WELLS Start: 10-02-2021 Computed tomography of abdomen and pelvis with contrast DO Neva Miller Work Phone: Start: 04-23-2021 Colonoscopy Yuerong Ba natalie MCQUEEN Work Phone: Start: 10-28-2019 Culture bacterial quanttative colony count urine NARESH RUDDY Start: 10-28-2019 Urinalysis microscopic only Rania Fahoury Work Phone: Start: 10-28-2019 Urnls dip stick/tabl et rgnt auto w/o microscopy Rania Fahoury Work Phone: Start: 10-06-2019 Basic metabolic pane l calcium total NARESH RUDDY Start: 10-06-2019 Blood count complete automated NARESH RUDDY Start: 10-06-2019 Basic metabolic pane l calcium total Rania Fahoury Work Phone: Start: 10-06-2019 Blood count complete automated Rania Fahoury Work Phone: Start: 09-29-2019 Basic metabolic pane l calcium total NARESH RUDDY Start: 09-29-2019 Blood count complete automated NARESH RUDDY Start: 09-29-2019 Basic metabolic pane l calcium total Rania Fahoury Work Phone: Start: 09-29-2019 Blood count complete automated Rania Fahoury Work Phone: Start: 09-22-2019 Basic metabolic pane l calcium total NARESH RUDDY Start: 09-22-2019 Blood count complete automated NARESH RUDDY Start: 09-22-2019 Basic metabolic pane l calcium total Lakshmi Thomas Work Phone: Start: 09-22-2019 Blood count complete automated Lakshmi Thomas Work Phone: Start: 11-23-2018 Inf agent det nuclei c acid clostridium amp probe NARESH FOX Plan of Treatment Date Care Activity Detail Author Start: 04-23-2031 Screening for malign ant neoplasm of colon [facility] Start: 04-02-2025 Influenza vaccination Influenz a Vaccine (Season Ended) [facility] Start: 12-14-2024 End: 12-14-2024 Patient encounter procedure 12/14/2024 11:20 AM EDT Office Visit [facility]IS[facility]E THOMPSON [address] [phone] Rachael Salter, RICHAR [address] [place] [phone] [facility]SI[facility] THOMPSON Start: 11-01-2024 Bacteria identified in Urine by Culture Urine Culture [facility] Start: 11-01-2024 Urine culture [facility] Start: 10-12-2024 End: 10-12-2024 Patient encounter procedure 10/12/2024 11:00 AM EDT Office Visit CHRISSIE JAY [address] [phone] Rachael Salter, [employer] DEVELOPER [address] [place] [phone] Arrived CHRISSIE THOMPSON Comment on above: Arrived Start: 10-08-2024 [facility] Start: 10-08-2024 Referral to general surgeon [facility] Start: 10-06-2024 Referral to infectio us diseases physician [facility] Start: 10-05-2024 [facility] Start: 10-05-2024 End: 10-05-2024 [facility] Start: 10-04-2024 Physical therapy procedure [facility] Start: 10-04-2024 Referral to occupati onal therapist [facility] Start: 10-04-2024 Referral to urologist [facility] Start: 10-04-2024 Hospital admission [facility] Start: 10-04-2024 [facility] Start: 10-04-2024 Urine culture [facility] Start: 10-04-2024 Bacteria identified in Blood by Culture Blood Culture [facility] Start: 10-04-2024 Bacteria identified in Urine by Culture Urine Culture [facility] Start: 10-04-2024 Inspection of Bladde r, Via Natural or Artificial Opening Endoscopic Inspection of Bladder, Via Natural or Artificial Opening Endoscopic [facility] Start: 09-18-2024 End: 09-18-2024 Patient encounter procedure 09/18/2024 8:40 AM EST Office Visit [facility] [address] [place] [phone] Katja Botello NP [address] [facility] [address] [place] [id number] [facility] Start: 09-17-2024 Screening for malign ant neoplasm of breast Mammogram [facility] Start: 08-08-2024 [facility] Start: 08-08-2024 [facility] Start: 06-05-2024 End: 06-05-2024 Professional / ancillary services management 06/05/2024 8:30 AM EST Ancillary Procedure [facility] [address] [place] [address] [facility] Start: 05-30-2024 OR Cysto Suprapubic Tube Placement (Not Applicable) OR Cysto Suprapubic Tube Placement (Not Applicable) [facility] Start: 05-23-2024 [facility] Start: 05-19-2024 Administration of prophylactic treatment [facility] Start: 05-19-2024 Blood culture for bacteria, including anaerobic screen Blood Culture [facility] Start: 05-19-2024 Referral to infectio us diseases physician [facility] Start: 05-19-2024 [facility] Start: 05-18-2024 Sleep disorder assessment [facility] Start: 05-18-2024 End: 05-18-2024 [facility] Start: 05-18-2024 Hospital admission [facility] Start: 05-18-2024 Urine culture [facility] Start: 05-18-2024 Bacteria identified in Blood by Culture [facility] Start: 05-18-2024 Bacteria identified in Urine by Culture Urine Culture [facility] Start: 05-18-2024 Insertion of Infusio n Device into Superior Vena Cava, Percutaneous Approach Insertion of Infusion Device into Superior Vena Cava, Percutaneous Approach [facility] Start: 04-02-2024 Influenza vaccination Influenza Vacc ine (#1) [facility] Start: 10-17-2023 Bacteria identified in Urine by Culture Urine Culture [facility] Start: 11-21-2022 [facility] Start: 11-21-2022 Computed tomography of abdomen and pelvis with contrast CT abdomen pelvis w con [facility] Start: 11-21-2022 CT Abdomen and Pelvi s W contrast IV [facility] Start: 11-21-2022 Bacteria identified in Urine by Culture [facility] Start: 06-30-2022 End: 06-30-2022 [facility] Start: 06-29-2022 [facility] Start: 05-26-2022 [facility] Start: 05-26-2022 [facility] Start: 04-02-2019 Influenza vaccination Flu vaccine (# 1) [place], [place] Start: 02-07-2019 DTaP/Tdap/Td vaccine (2 - Tdap) DTaP/Tdap/Td vaccine (2 - Tdap) [place], [place] Start: 01-22-2019 Annual Wellness Visi t (AWV) Annual Wellness Visit (AWV) [place], [place] Start: 2011 Breast cancer screen Breast cancer s creen [place], [place] Start: 2011 Colon cancer screen colonoscopy Colon cancer screen colonoscopy [place], [place] Start: 2011 Shingles Vaccine (1 of 2) Lai gles Vaccine (1 of 2) [place], [place] Start: 2001 Lipid screen Lipid screen [place], [place] Start: 1991 Screening for malign ant neoplasm of cervix [facility] Start: 1982 Cervical cancer screen Cervical canc er screen [place], [place] Start: 1982 Screening for malign ant neoplasm of cervix Pap Smear [facility] Start: 01-06-1976 HIV screen HIV screen [place], [place] Start: 1961 Hepatitis C screen [place], [place] Start: 1961 Medicare Annual Well ness (AWV) Medicare Annual Wellness (AWV) [facility] Start: 1961 Screening for malign ant neoplasm of colon [facility] 24 hour urine measurement Fi [facility] Work Phone: 24 hour urine measurement [facility] Bacteria identified in Genital specimen by Aerobe culture [facility] Bacteria identified in Urine by Culture [facility] Work Phone: Comprehensive metabo lic 1999 panel - Serum or Plasma [facility] Comprehensive metabo lic 1999 panel - Serum or Plasma [facility] End: 10-28-2019 Culture, Urine Culture, Urine Microbiology Routine Once for 1 Occurrences starting 10/28/2019 until 10/28/2019 [place], [place] Comment on above: Once for 1 Occurrenc es starting 10/28/2019 until 10/28/2019 Culture, Urine Culture, Urine Microbiology Routine 10/28/2019 3:00 PM EDT [place] Elastase.pancreatic [Mass/mass] in Stool [facility] Electrophoresis: [id number] [facility] Work Phone: Electrophoresis: [id number] [facility] Electrophoresis: [id number] [facility] Work Phone: Electrophoresis: [id number] [facility] Electrophoresis: beta-globulin [facility] Work Phone: Electrophoresis: beta-globulin [facility] IgA [Mass/volume] in Serum or Plasma [facility] Work Phone: IgG [Mass/volume] in Serum or Plasma [facility] Work Phone: IgM [Mass/volume] in Serum or Plasma [facility] Work Phone: Immunofixation for Urine [facility] Work Phone: Immunofixation for Urine [facility] Immunofixation for Urine [facility] [place] light chains.f ree [Mass/volume] in Serum [facility] Work Phone: [place] light chains.free/Lambda light chains.free [Mass Ratio] in Serum [facility] Work Phone: Lambda light chains. free [Mass/volume] in Serum or Plasma [facility] Work Phone: Measurement of monoc lonal protein concentration [facility] Work Phone: Measurement of monoc lonal protein concentration [facility] Patient Education [facility] Work Phone: Patient referral [facility] Work Phone: Protein [Mass/volume ] in Urine [facility] Work Phone: Protein [Mass/volume ] in Urine [facility] Urine culture Urine Culture [facility] Immunizations Immunization Date Immunization Notes Care Provider Shaun salazar 04-29-2022 SARS-CoV-2 (COVID-19 ) [id number] Tammy ALLAN [facility] 01-06-2022 SARS-CoV-2 (COVID-19 ) [id number] vaccine Tammy ALLAN [facility] 06-11-2021 SARS-CoV-2 (COVID-19 ) mRNA-[id number] vaccine Tammy ALLAN [facility] 11-26-2020 COVID-19 mRNA-1273 (Moderna) DO Neva Miller Work Phone: [facility] 10-29-2020 COVID-19 mRNA-1273 (Moderna) DO Neva Miller Work Phone: [facility] 04-30-2020 influenza virus vacc ine, unspecified formulation [email or web address] [facility] 03-30-2019 influenza virus vacc ine, unspecified formulation [employer] [facility] 03-22-2019 influenza, unspecifi ed formulation [employer] [facility] 07-08-2018 zoster vaccine recombinant [employer] [facility] 05-09-2018 influenza virus vacc ine, unspecified formulation [employer] [facility] 11-29-2017 zoster vaccine recombinant [employer] [facility] 03-08-2017 influenza virus vacc ine, unspecified formulation [employer] [facility] 05-11-2016 influenza, unspecifi ed formulation [employer] [facility] 04-13-2016 influenza virus vacc ine, unspecified formulation [email or web address] [employer] [facility] 04-18-2015 influenza virus vacc ine, unspecified formulation [employer] [facility] 04-04-2014 pneumococcal polysaccharide vaccine, 23 valent Tammy ALLAN [facility] 08-02-2013 pneumococcal polysaccharide vaccine, 23 valent Tammy ALLAN [facility] 08-02-2008 pneumococcal polysaccharide vaccine, 23 valent Tammy ALLAN [facility] 06-26-2005 influenza virus vacc ine, unspecified formulation Tammy m-spatial [facility] 01-11-2005 DTaP, unspecified formulation [employer] [facility] 09-09-2004 hepatitis B vaccine, pediatric or pediatric/adolescent dosage Tammy m-spatial [facility] 05-15-2004 influenza virus vacc ine, unspecified formulation Tammy m-spatial [facility] 03-14-2004 hepatitis B vaccine, pediatric or pediatric/adolescent dosage Tammy [employer]-spatial [facility] 02-08-2004 hepatitis B vaccine, pediatric or pediatric/adolescent dosage Tammy m-spatial [facility] 02-08-2004 Td(adult) unspecifie d formulation [employer] [facility] 05-10-2003 influenza virus vacc ine, unspecified formulation Tammy [facility] 06-13-2001 influenza virus vacc ine, unspecified formulation Tammy [employer] 05-17-2000 influenza virus vacc ine, unspecified formulation Tammy [employer] Payers Date Payer Category Payer Self-pay [id number] 2021 Medicaid [id number] 2014 Private Health [place] [employer] xxxxxxxxxxxx 2014-Present [phone] [address] [address] [place] [address] xxxxxxxxxxxx [id number] 2014 Private Health Insurance [id number] 1990 Medicare [id number] 1990 Medicare [id number] 1990 Medicare [id number] 1960 Unknown [id number] 2.16.840.1.606614.3.579.2 .177 1961 Unknown [id number] 2.16.840.1.605009.3.579.2 .177 1961 Unknown [id number] 2.16.840.1.760586.3.579.2 .177 1961 Unknown [id number] 2.16.840.1.251610.3.579.2 .177 1961 Unknown [id number] 2.16.840.1.010170.3.579.2 .177 1961 Unknown [id number] 2.16.840.1.431565.3.579.2 .727 1961 Unknown [id number] 2.16.840.1.620323.3.579.2 .727 1961 Unknown [id number] 2.16.840.1.415729.3.579.2 .727 1961 Unknown [id number] 2.16.840.1.250149.3.579.2 .727 1961 Unknown [id number] 2.16.840.1.214940.3.579.2 .727 1961 Unknown [id number] 2.16.840.1.608268.3.579.2 .727 1961 Unknown [id number] 2.16.840.1.367596.3.579.2 .727 1961 Unknown [id number] 2.16.840.1.431693.3.579.2 .727 1961 Unknown [id number] 2.16.840.1.956493.3.579.2 .727 1961 Unknown [id number] 2.16.840.1.724878.3.579.2 .727 1961 Unknown [id number] 2.16.840.1.986695.3.579.2 .727 1961 Unknown [id number] 2.16.840.1.050321.3.579.2 .1259 1961 Unknown [id number] 2..840.1.645186.3.579.2 .1259 1961 Unknown [id number] 2.16.840.1.671677.3.579.2 .1259 Medicare [id number] Unknown [id number] 2.16.840.1.123403.3.579.2 .531 Unknown [id number] 2.16.840.1.227793.3.579.2 .531 Unknown [id number] 2.16.840.1.292048.3.579.2 .531 Unknown [id number] 2.16.840.1.781663.3.579.2 .531 Unknown [id number] 2.16.840.1.156813.3.579.2 .531 Unknown [id number] 2.16.840.1.061007.3.579.2 .531 Unknown [id number] 2.16.840.1.000050.3.579.2 .531 Unknown [id number] 2.16.840.1.102325.3.579.2 .531 Unknown [id number] 2.16.840.1.278229.3.579.2 .531 Unknown [id number] 2.16.840.1.910043.3.579.2 .531 Unknown [id number] 2.16.840.1.571865.3.579.2 .531 Social History Date Type Detail Facility Start: 10-02-2018 Tobacco smoking stat us IAIS Unknown if ever smoked [facility] [place] Start: 1960 Sex Assigned At Not on file [place], [place] Start: 10-28-2021 End: 09-06-2024 Tobacco smoking status Ex-smoker (finding) [facility] Tobacco smoking status Never [facility] [place] Start: 08-04-2023 End: 10-12-2024 Sex Assigned At Female [facility] [employer] Other Start: 1960 Sex Assigned At Female F [facility] Start: 02-12-2023 End: 10-08-2024 Tobacco smoking status NHIS Never smoked tobacco [facility] Start: 02-12-2023 Tobacco use and exposure Smokeless tobacco non-user [facility] Start: 08-04-2023 End: 11-03-2024 Alcoholic beverage intake Lifetime non-drinker (finding) [facility] Start: 08-04-2023 End: 10-12-2024 History of Social function [facility] Start: 08-08-2024 End: 11-11-2024 Sex Female (finding) [facility] Start: 10-05-2024 SDOH Follow up SDOH Follow up [facility] Work Phone: Medical Equipment Procedure Code Equipment Code Equipment Origin al Text Equipment Identifier Dates Cystoscopy, with ureteral calculus manipulation and stent placement Polymeric ureteral stent [id number] FDA Start: 05-26-2022 Goals Date Patient Goal Desired Activity /State Functional Status Date Assessment Result Facility 10-05-2024 Functional status Patient at [facility] Work Phone: 09-06-2024 Functional Status N/A [facility] 08-16-2024 Functional Status N/A [facility] 05-23-2024 Functional status Patient at [facility] Work Phone: 02-09-2024 Functional Status N/A [facility] 09-15-2022 Functional Status N/A [facility] 05-05-2022 Functional Status N/A [facility] Mental Status Date Assessment Result Facility 10-05-2024 Cognitive function Cognitive Sta tus Patient at Baseline [facility] Work Phone: 05-23-2024 Cognitive function Cognitive Sta tus Patient at Baseline [facility] Work Phone: Clinical Notes 07-14-2021 to 11-03-2024 Chelsea Willingham DO - 11/03/2024 10:15 AM EDT Note Date & Type Note Facility 11-03-2024 History of Present illness Narrative Images from the original note were not included. Alessandra Hardy 1960 Alessandra Hardy is a 64 y.o. female presents with chief complaint of GB Consult HPI: HPI Alessandra states she has right sided abdominal pain for at least a year. She has nausea and vomiting with meals. The pain can last all night. She has a suprapubic cath that recently fell out and she is scheduled for surgery to replace it SUBJECTIVE: MEDICATIONS: ALLERGIES Current Outpatient Medications Medication Instructions acetaminophen (TYLENOL 8 HOUR) 650 mg, Every 8 hours PRN albuterol 2.5 mg, Every 2 hour PRN bisacodyl (Bisacodyl Laxative) 10 MG suppository 1 suppository, Rectal, Daily PRN carboxymethylcellulose (Artificial Tears) 1 % ophthalmic solution 1 drop, Both Eyes, 4 times daily cholecalciferol (VITAMIN D3) 75 mcg, Oral, Daily fludrocortisone (Florinef) 0.1 MG tablet 0.5 tablets, Oral, Every 24 hours FLUoxetine (PROZAC) 10 mg, Every 24 hours lamoTRIgine (LAMICTAL) 100 mg, Every 12 hours mirabegron ER (MYRBETRIQ) 50 mg, Nightly nortriptyline (Pamelor) 10 MG capsule 2 capsules, Every 24 hours omeprazole (PRILOSEC) 20 mg, Daily before breakfast pantoprazole (PROTONIX) 40 mg, Every 24 hours Sennosides (Senna) 8.6 MG capsule 1 capsule, 2 times daily PRN terbinafine (LamISIL) 1 % cream 2 times daily Allergies Allergen Reactions Aspirin Other Reaction(s): Unknown Silicone Other Reaction(s): Unknown Wound Dressing Adhesive PAST MEDICAL HISTORY: SOCIAL HISTORY SURGICAL HISTORY: Past Medical History: Diagnosis Date Cellulitis of leg, right Cervical radiculopathy Congenital mitral stenosis Frailty Frequent falls GERD (gastroesophageal reflux disease) Hx of Clostridium difficile infection Intertrigo Multiple sclerosis (CMS/HCC) Neurogenic bladder Orthostatic hypotension Osteoporotic compression fracture of spine (CMS/HCC) fragility Recurrent cellulitis Seizures (CMS/HCC) TIA (transient ischemic attack) Venous insufficiency (chronic) (peripheral) Venous stasis dermatitis Social History Tobacco Use Smoking status: Never Smokeless tobacco: Never Substance Use Topics Alcohol use: Never Drug use: Never Past Surgical History: Procedure Laterality Date COLONOSCOPY 04/23/2021 KYPHOSIS SURGERY FAMILY HISTORY Family History Problem Relation Name Age of Onset Melanoma Father Multiple myeloma Neg Hx REVIEW OF SYMPTOMS: Review of Systems Constitutional: Negative for diaphoresis and unexpected weight change. HENT: Negative for hearing loss, tinnitus and voice change. Respiratory: Negative for shortness of breath. Cardiovascular: Negative for chest pain and palpitations. Gastrointestinal: Positive for abdominal pain, nausea and vomiting. Musculoskeletal: Negative for arthralgias. Neurological: Negative for dizziness, seizures and headaches. All other systems reviewed and are negative. Hematological: Negative for adenopathy. Does not bruise/bleed easily. OBJECTIVE: Visit Vitals Smoking Status Never Physical Exam HENT: Head: Normocephalic. Cardiovascular: Rate and Rhythm: Normal rate and regular rhythm. Pulmonary: Effort: Pulmonary effort is normal. Breath sounds: Normal breath sounds. Abdominal: General: Abdomen is flat. Bowel sounds are normal. Palpations: Abdomen is soft. Skin: General: Skin is warm and dry. Neurological: Mental Status: She is alert. ASSESSMENT AND PLAN: Assessment/Plan Diagnoses and all orders for this visit: Cholelithiasis - Ambulatory referral to General Surgery Alessandra states she has right sided abdominal pain. She is scheduled for surgery to reinsert the suprapubic catheter. I discussed the US findings of gallstones. We discussed the indications for cholecystectomy. I reviewed the procedure for laparoscopic possible open cholecystectomy. I reviewed the risks and benefits of both procedures including but not exclusive of the possibility of conversion to an open procedure, the risk of post cholecystectomy diarrhea, possible injury to nearby bile or bowel structures, which may require additional open surgical procedures to repair, bleeding, nerve injury, infection, were reviewed. In addition, I discussed the use of general anesthesia and the risks associated with it to include heart attack, stroke or blood clots. The patients questions were answered to satisfaction. She states she does not want surgery at this time, as she is dealing with her urological issues. I'll see her PRN. documented in this encounter [facility] 10-18-2024 Note Patient Education Obstetrics and Gynecology Overactive Bladder, Adult Overactive bladder is a condition in which a person has a sudden and frequent need to urinate. A person might also leak urine if he or she cannot get to the bathroom fast enough (urinary incontinence). Sometimes, symptoms can interfere with work or social activities. What are the causes? Overactive bladder is associated with poor nerve signals between your bladder and your brain. Your bladder may get the signal to empty before it is full. You may also have very sensitive muscles that make your bladder squeeze too soon. This condition may also be caused by other factors, such as: ??? Medical conditions: ? Urinary tract infection. ? Infection of nearby tissues. ? Prostate enlargement. ? Bladder stones, inflammation, or tumors. ? Diabetes. ? Muscle or nerve weakness, especially from these conditions: ? A spinal cord injury. ? Stroke. ? Multiple sclerosis. ? Parkinson's disease. ??? Other causes: ? Surgery on the uterus or urethra. ? Drinking too much caffeine or alcohol. ? Certain medicines, especially those that eliminate extra fluid in the body (diuretics). ? Constipation. What increases the risk? You may be at greater risk for overactive bladder if you: ??? Are an older adult. ??? Smoke. ??? Are going through menopause. ??? Have prostate problems. ??? Have a neurological disease, such as stroke, dementia, Parkinson's disease, or multiple sclerosis (MS). ??? Eat or drink alcohol, spicy food, caffeine, and other things that irritate the bladder. ??? Are overweight or obese. What are the signs or symptoms? Symptoms of this condition include a sudden, strong urge to urinate. Other symptoms include: ??? Leaking urine. ??? Urinating 8 or more times a day. ??? Waking up to urinate 2 or more times overnight. How is this diagnosed? This condition may be diagnosed based on: ??? Your symptoms and medical history. ??? A physical exam. ??? Blood or urine tests to check for possible causes, such as infection. You may also need to see a health care provider who specializes in urinary tract problems. This is called a urologist. How is this treated? Treatment for overactive bladder depends on the cause of your condition and whether it is mild or severe. Treatment may include: ??? Bladder training, such as: ? Learning to control the urge to urinate by following a schedule to urinate at regular intervals. ? Doing Kegel exercises to strengthen the pelvic floor muscles that support your bladder. ??? Special devices, such as: ? Biofeedback. This uses sensors to help you become aware of your body's signals. ? Electrical stimulation. This uses electrodes placed inside the body (implanted) or outside the body. These electrodes send gentle pulses of electricity to strengthen the nerves or muscles that control the bladder. ? Women may use a plastic device, called a pessary, that fits into the vagina and supports the bladder. ??? Medicines, such as: ? Antibiotics to treat bladder infection. ? Antispasmodics to stop the bladder from releasing urine at the wrong time. ? Tricyclic antidepressants to relax bladder muscles. ? Injections of botulinum toxin type A directly into the bladder tissue to relax bladder muscles. ??? Surgery, such as: ? A device may be implanted to help manage the nerve signals that control urination. ? An electrode may be implanted to stimulate electrical signals in the bladder. ? A procedure may be done to change the shape of the bladder. This is done only in very severe cases. Follow these instructions at home: Eating and drinking ??? Make diet or lifestyle changes recommended by your health care provider. These may include: ? Drinking fluids throughout the day and not only with meals. ? Cutting down on caffeine or alcohol. ? Eating a healthy and balanced diet to prevent constipation. This may include: ? Choosing foods that are high in fiber, such as beans, whole grains, and fresh fruits and vegetables. ? Limiting foods that are high in fat and processed sugars, such as fried and sweet foods. Lifestyle ??? Lose weight if needed. ??? Do not use any products that contain nicotine or tobacco. These include cigarettes, chewing tobacco, and vaping devices, such as e-cigarettes. If you need help quitting, ask your health care provider. General instructions ??? Take [id number] and prescription medicines only as told by your health care provider. ??? If you were prescribed an antibiotic medicine, take it as told by your health care provider. Do not stop taking the antibiotic even if you start to feel better. ??? Use any implants or pessary as told by your health care provider. ??? If needed, wear pads to absorb urine leakage. ??? Keep a log to track how much and when you drink, and whe (more content not included)... [facility] 10-08-2024 Consult note Note Date/Time October 08, 2024 4:07pm [facility] [address] [place], [place] [id number] Cardiology Consult Note Signed Patient: Alessandra Hardy MR#: [id number] : 1960 Acct:[id number] Age/Sex: 64 / F Adm Date: 5 Loc: 4P Room: [address] [place] [address] Type: ADM IN Attending Dr: Luis Santoro MD Copies to: MD Luis Leary MD Robert J Vaschak,DO~ Cardiology HPI History of Present Illness Consult Date: 10/08/24 Reason for Consult: Tachycardia HPI: Ms. Hardy is a 64 year old female with past medical history significant for multiple sclerosis, neurogenic bladder status post suprapubic catheter placementwho presented with decreased urine output and abdominal pain. She had an accessible attempt to replace the suprapubic catheter in the ER and had to undergo surgery to replace this. During the hospitalization she has been noticed to be tachycardic in the 100s. CT chest was negative for PE. Cardiology consulted for further recommendations. She reports occasional palpitations. She denies chest pain and her dyspnea is at baseline. Review of recent admission showed that she has a borderline elevated heart rate. Notably she has a complex UTI and has ESBL colonization and she is currently on antibiotics for it. Denies any cardiac history. Review of Systems Review of Systems All other systems reviewed & are negative unless noted below or in HPI [facility] Medical History (Updated 10/08/24 @ 15:53 by Brigid Adame MD) Poole catheter present Other lack of coordination Need for assistance with personal care Difficulty in walking, not elsewhere classified Other fracture of upper and lower end of left fibula, subsequent encounter for closed fracture with nonunion Radiculopathy, cervical region Erythema intertrigo Venous insufficiency (chronic) (peripheral) Dysphagia GERD (gastroesophageal reflux disease) Other abnormalities of gait and mobility Unsteadiness on feet Personal history of (healed) traumatic fracture History of falling Major depressive disorder, recurrent, unspecified Syncope and collapse GERD without esophagitis Cognitive communication deficit Muscle weakness (generalized) Unspecified lack of coordination Other seizures history of Congenital mitral stenosis Transient cerebral ischemic attack, unspecified Neuromuscular dysfunction of bladder, unspecified Age-related osteoporosis without current pathological fracture Cellulitis of right lower limb Multiple sclerosis Surgical History History of cystoscopy patient reports previous left stent placement History of tonsillectomy History of orthopedic surgery ankle and thigh surgery History of tubal ligation Family History Father Melanoma S/P CABG x 3 Myocardial infarction Mother Dementia Social History Smoking Status: Never smoker Tobacco Type: cigarettes Substance Use Type: None Meds Medications and Allergies Allergies aspirin Allergy (Unknown, Verified 10/04/24 17:27) Unknown Reaction silicone Allergy (Unknown, Verified 10/04/24 17:27) Rash adhesive tape Allergy (Verified 10/04/24 17:27) Rash Home Medications fludrocortisone 0.1 mg tablet 0.05 mg PO QAM cellulitis 04/23/21 [History Confirmed 10/04/24] lamotrigine 100 mg tablet 100 mg PO BID seizures 04/23/21 [History Confirmed 10/04/24] nortriptyline 10 mg capsule 20 mg PO QHS 04/23/21 [History Confirmed 10/04/24] cholecalciferol (vitamin D3) 25 mcg (1,000 unit) tablet (Vitamin D3) 75 mcg PO QAM 12/11/21 [History Confirmed 10/04/24] menthol 3.2 mg lozenges 3.2 mg PO DIRECTED 05/12/22 [History Confirmed 10/04/24] fluoxetine 10 mg capsule (Prozac) 10 mg PO QAM 05/26/22 [History Confirmed 10/04/24] bisacodyl 10 mg rectal suppository 10 mg PA DAILY PRN constipation 07/28/23 [History Confirmed 10/04/24] magnesium hydroxide 400 mg/5 mL oral suspension (Milk of Magnesia) 2,400 mg PO DAILY PRN constipation 07/28/23 [History Confirmed 10/04/24] acetaminophen 325 mg capsule 650 mg PO Q6HR PRN pain 10/17/23 [History Confirmed 10/04/24] omeprazole 20 mg capsule,delayed release 20 mg PO QAM 05/16/24 [History Confirmed 10/04/24] carboxymethylcellulose sodium 1 % eye drops (Artificial Tears (carboxymethylcellulose)) 1 drp Eye-Both BID-QID PRN dry eye(s) 07/24/24 [History Confirmed 10/04/24] eucalyptus oil-aloe extr-lavender,janett oil-petrolatum top ointment (Vicks Babyrub topical ointment) 1 applic topical QID PRN chest congestion 10/04/24 [History Confirmed 10/04/24] miconazole nitrate 2 % topical powder (Miconazorb AF) 1 applic topical TID PRN excoriation 10/04/24 [History Confirmed 10/04/24] tacrolimus 0.1 % topical ointment 1 applic topical DAILY 10/04/24 [History Confirmed 10/04/24] albuterol sulfate 2.5 mg/3 mL (0.083 %) solution for nebulization 2.5 mg (3 mL) inhalation Q2H PRN Shortness Of Breath 30 days #90 mL 10/08/24 [Rx] docusate sodium 100 mg capsule 200 mg (2 x 100 mg) PO BID PRN Constipation 30 days #60 caps 10/08/24 [Rx] nitrofurantoin monohydrate/macrocrystals 100 mg capsule 100 mg PO BID.WITH.MEALS 1 day #2 caps 10/08/24 [Rx] Exam Physical Exam Vital Signs: Temp Pulse Resp BP Pulse Ox O2 Del Method O2 Flow Rate 97.7 F 102 H 19 147/72 H 90 L Room Air 2 10/08/24 07:55 10/08/24 07:55 10/08/24 07:55 10/08/24 07:55 10/08/24 07:55 10/08/24 08:00 10/07/24 08:00 Narrative: GEN: AAOx3. No acute distress. Neck: No JVD. Lungs: Clear to auscultation bilaterally Heart: Regular rate and rhythm. Normal S1 and S2. No murmurs or rubs appreciated. Abdomen: Soft, nontender, nondistended, bowel sounds present. Extremities: No BLE edema. Neuro: AAOx3. No focal deficits. Results - Cardiology Labs 10/08/24 04:35 10/08/24 04:35 Lab results: Cardiac Enzymes 10/08/24 Range/Units 04:35 AST 12 L (13-39) U/L CBC 10/08/24 Range/Units 04:35 RBC 4.41 (3.60-5.00) x10E6/uL Hgb 13.3 (11.8-15.4) g/dL Hct 39.3 (34.0-46.4) % Plt Count 361 (150-450) x10E3/uL Neut # (Auto) 6.8 (1.8-7.7) x10E3/uL Lymph # (Auto) 2.0 (1.00-4.8) x10E3/uL [place] # (Auto) 0.8 (0.0-0.8) x10E3/uL Eos # (Auto) 0.4 (0.0-0.45) x10E3/uL Baso # (Auto) 0.1 (0.0-0.2) x10E3/uL Comprehensive Metabolic Panel 10/08/24 Range/Units 04:35 Sodium 138 (136-145) mmol/L Potassium 3.4 L (3.5-5.1) mmol/L Chloride 107 (98-107) mmol/L Carbon Dioxide 24.2 (21.0-31.0) mmol/L BUN 16 (7-25) mg/dL Creatinine 0.61 (0.60-1.20) mg/dL Glucose 118 H (70-100) mg/dL Calcium 8.4 L (8.6-10.3) mg/dL AST 12 L (13-39) U/L ALT 6 L (7-52) U/L Alkaline Phosphatase 82 (34-104) U/L Total Protein 6.7 (6.4-8.9) gm/dL Albumin 2.8 L (3.5-5.7) gm/dL Intake and Output 10/07/24 10/08/24 10/08/24 23:59 08:59 15:59 Other: Weight 102.5 kg Date of Last Bowel Movement 10/05/24 10/08/24 Patient Weight 10/09/24 00:59 Weight 102.5 kg A&P - Cardiology (1) Sinus tachycardia: Code(s): R00.0 - Tachycardia, unspecified (2) Suprapubic catheter dysfunction: Code(s): T83.010A - Breakdown (mechanical) of cystostomy catheter, initial encounter (3) 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 CTA negative for PE. Some improvement with with IV fluids however review of previous records notes she has had HR in 90-100s in the past. - Continue supportive management. - Cardiology will see again as needed. Documented By: Brigid Adame MD 10/08/24 1552 Signed By: <Electronically signed by Brigid Adame MD> 10/08/24 1021 [facility] Work Phone: [phone]) 496-144503-09-2025 [place] [id number] Cardiology Consult Note Signed Patient: Alessandra Hardy MR#: [id number] : 1960 Acct:[id number] Age/Sex: 64 / F Adm Date: 5 Loc: Room: [address] [place] [address] Type: ADM IN Attending Dr: Luis Santoro MD Copies to: MD Luis Leary MD Robert J Vaschak,DO~ Cardiology HPI History of Present Illness Consult Date: 10/08/24 Reason for Consult: Tachycardia HPI: Ms. Hardy is a 64 year old female with past medical history significant for multiple sclerosis, neurogenic bladder status post suprapubic catheter placementwho presented with decreased urine output and abdominal pain. She had an accessible attempt to replace the suprapubic catheter in the ER and had to undergo surgery to replace this. During the hospitalization she has been noticed to be tachycardic in the 100s. CT chest was negative for PE. Cardiology consulted for further recommendations. Shereports occasional palpitations. She denies chest pain and her dyspnea is at baseline. Review of recent admission showed that she has a borderline elevated heart rate. Notably she has a complex UTI and has ESBL colonization and she is currently on antibiotics for it. Denies any cardiac history. Review of Systems Review of Systems All other systems reviewed & are negative unless noted below or in HPI [facility] Medical History (Updated 10/08/24 @ 15:53 by Brigid Adame MD) Poole catheter present Other lack of coordination Need for assistance with personal care Difficulty in walking, not elsewhere classified Other fracture of upper and lower end of left fibula, subsequent encounter for closed fracture withnonunion Radiculopathy, cervical region Erythema intertrigo Venous insufficiency (chronic) (peripheral) Dysphagia GERD (gastroesophageal reflux disease) Other abnormalities of gait and mobility Unsteadiness on feet Personal history of (healed) traumatic fracture History of falling Major depressive disorder, recurrent, unspecified Syncope and collapse GERD without esophagitis Cognitive communication deficit Muscle weakness (generalized) Unspecified lack of coordination Other seizures history of Congenital mitral stenosis Transient cerebral ischemic attack, unspecified Neuromuscular dysfunction of bladder, unspecified Age-related osteoporosis without current pathological fracture Cellulitis of right lower limb Multiple sclerosis Surgical History History of cystoscopy patient reports previous left stent placement History of tonsillectomy History of orthopedic surgery ankle and thigh surgery History of tubal ligation Family History Father Melanoma S/P CABG x 3 Myocardial infarction Mother Dementia Social History Smoking Status: Never smoker Tobacco Type: cigarettes Substance Use Type: None Meds Medications and Allergies Allergies aspirin Allergy (Unknown, Verified 10/04/24 17:27) Unknown Reaction silicone Allergy (Unknown, Verified 10/04/24 17:27) Rash adhesive tape Allergy (Verified 10/04/24 17:27) Rash Home Medications fludrocortisone 0.1 mg tablet 0.05 mg PO QAM cellulitis 04/23/21 [History Confirmed 10/04/24] lamotrigine 100 mg tablet 100 mg PO BID seizures 04/23/21 [History Confirmed 10/04/24] nortriptyline 10 mg capsule 20 mg PO QHS 04/23/21 [History Confirmed 10/04/24] cholecalciferol (vitamin D3) 25 mcg (1,000 unit) tablet (Vitamin D3) 75 mcg PO QAM 12/11/21 [History Confirmed 10/04/24] menthol 3.2 mg lozenges 3.2 mg PO DIRECTED 05/12/22 [History Confirmed 10/04/24] fluoxetine 10 mg capsule (Prozac) 10 mg PO QAM 05/26/22 [History Confirmed 10/04/24] bisacodyl 10 mg rectal suppository 10 mg PA DAILY PRN constipation 07/28/23 [History Confirmed 10/04/24] magnesium hydroxide 400 mg/5 mL oral suspension (Milk of Magnesia) 2,400 mg PO DAILY PRN constipation 07/28/23 [History Confirmed 10/04/24] acetaminophen 325 mg capsule 650 mg PO Q6HR PRN pain 10/17/23 [History Confirmed 10/04/24] omeprazole 20 mg capsule,delayed release 20 mg PO QAM 05/16/24 [History Confirmed 10/04/24] carboxymethylcellulose sodium 1 % eye drops (Artificial Tears (carboxymethylcellulose)) 1 drp Eye-Both BID-QID PRN dry eye(s) 07/24/24 [History Confirmed 10/04/24] eucalyptus oil-aloe extr-lavender,janett oil-petrolatum top ointment (Vicks Babyrub topical ointment) 1 applic topical QID PRN chest congestion 10/04/24 [History Confirmed 10/04/24] miconazole nitrate 2 % topical powder (Miconazorb AF) 1 applic topical TID PRN excoriation 10/04/24[History Confirmed 10/04/24] tacrolimus 0.1 % topical ointment 1 applic topical DAILY 10/04/24 [History Confirmed 10/04/24] albuterol sulfate 2.5 mg/3 mL (0.083 %) solution for nebulization 2.5 mg (3 mL) inhalation Q2H PRN Shortness Of Breath 30 days #90 mL 10/08/24 [Rx] docusate sodium 100 mg capsule 200 mg (2 x 100 mg) PO BID PRN Constipation 30 days #60 caps 10/08/24 [Rx] nitrofurantoin monohydrate/macrocrystals 100 mg capsule 100 mg PO BID.WITH.MEALS 1 day #2 caps 10/08/24 [Rx] Exam Physical Exam Vital Signs: Temp Pulse Resp BP Pulse Ox O2 Del Method O2 Flow Rate 97.7 F 102 H 19 147/72 H 90 L Room Air 2 10/08/24 07:55 10/08/24 07:55 10/08/24 07:55 10/08/24 07:55 10/08/24 07:55 10/08/24 08:00 10/07/24 08:00 Narrative: GEN: AAOx3. No acute distress. Neck: No JVD. Lungs: Clear to auscultation bilaterally Heart: Regular rate and rhythm. Normal S1 and S2. No murmurs or rubs appreciated. Abdomen: Soft, nontender, nondistended, bowel sounds present. Extremities: No BLE edema. Neuro: AAOx3. No focal deficits. Results - Cardiology Labs 10/08/24 04:35 10/08/24 04:35 Lab results: Cardiac Enzymes 10/08/24 Range/Units 04:35 AST 12 L (13-39) U/L CBC 10/08/24 Range/Units 04:35 RBC 4.41 (3.60-5.00) x10E6/uL Hgb 13.3 (11.8-15.4) g/dL Hct 39.3 (34.0-46.4) % Plt Count 361 (150-450) x10E3/uL Neut # (Auto) 6.8 (1.8-7.7) x10E3/uL Lymph # (Auto) 2.0 (1.00-4.8) x10E3/uL [place] # (Auto) 0.8 (0.0-0.8) x10E3/uL Eos # (Auto) 0.4 (0.0-0.45) x10E3/uL Baso # (Auto) 0.1 (0.0-0.2) x10E3/uL Comprehensive Metabolic Panel 10/08/24 Range/Units 04:35 Sodium 138 (136-145) mmol/L Potassium 3.4 L (3.5-5.1) mmol/L Chloride 107 (98-107) mmol/L Carbon Dioxide 24.2 (21.0-31.0) mmol/L BUN 16 (7-25) mg/dL Creatinine 0.61 (0.60-1.20) mg/dL Glucose 118 H (70-100) mg/dL Calcium 8.4 L (8.6-10.3) mg/dL AST 12 L (13-39) U/L ALT 6 L (7-52) U/L Alkaline Phosphatase 82 (34-104) U/L Total Protein 6.7 (6.4-8.9) gm/dL Albumin 2.8 L (3.5-5.7) gm/dL Intake and Output 10/07/24 10/08/24 10/08/24 23:59 08:59 15:59 Other: Weight 102.5 kg Date of Last Bowel Movement 10/05/24 10/08/24 Patient Weight 10/09/24 00:59 Weight 102.5 kg A&P - Cardiology (1) Sinus tachycardia: Code(s): R00.0 - Tachycardia, unspecified (2) Suprapubic catheter dysfunction: Code(s): T83.010A - Breakdown (mechanical) of cystostomy catheter, initial encounter (3) 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 CTA negative for PE. Some improvement with with IV fluids however review of previous records notes she has had HR in 90-100s in the past. - Continue supportive management. - Cardiology will see again as needed. Documented By: Brigid Adame MD 10/08/24 1552 Signed By: 10/08/24 1607 [facility]03-09-2025 Radiology Diagnostic study note [facility] Main [place] [address] [place] [address] CT Scan Report Signed Patient: Alessandra Hardy MR#: [id number] : 1960 Acct:[id number] Age/Sex: 64 / F ADM Date: Loc: Room: [address] [place] [address] Type: ADM IN Attending Dr: Luis Santoro MD Copies to: Luis Santoro MD~ Ordering Provider: Luis Santoro MD Date of Service: 10/08/24 CT/CT abdomen pelvis wo con: Tachycardia, rule out intraabdominal process CT Abdomen and Pelvis withoutcontrast TECHNIQUE: Axial imaging with 2-D reconstruction. . The CT exam was performed using one or more thefollowing dose reduction techniques: Automated exposure control, adjustment of the MA and/or Kv according to patient size, or use of theiterative reconstruction technique. COMPARISON: 10/04/2024 History: Difficulty with a changing of suprapubic catheter. Question positioning. Tachycardia. LIMITATIONS: None LOWER THORAX developing small pleural effusions with adjacent consolidation/atelectasis greater on the right. The right hemidiaphragm elevation redemonstrated. LIVER: Hepatic steatosis. GALLBLADDER: No gallbladder abnormality identified. BILE DUCTS: No dilatation SPLEEN: Unremarkable PANCREAS: Unremarkable ADRENAL GLANDS: Unremarkable KIDNEYS:Mild perinephric stranding. 5. No distinctive focal lesion identified. Contrast present within the intrarenal collecting systems and proximal ureters. 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 Mild hydronephrosis of the upper lobe pole moieties. Suspected wall thickening involving the proximal right ureter. Wall thickening involving the left renal pelvis and proximal ureter. Nondistended left intrarenal collecting system. No obstructingureteral stone. The stone in the right renal pelvis is obscured. A punctate left renal stone obscured. AORTA: No abdominal aortic aneurysm identified. Mild atherosclerosis. RETROPERITONEUM: No significant retroperitoneal abnormalities identified. MESENTERY:Unremarkable SMALL BOWEL: Interval nondistention of multiple small bowel loops with multiple fluid levels. It measures up to 4.0 cm. Potential smooth transition identifiedin the terminal ileum. No obvious obstructing lesion. APPENDIX: The appendix is not seen. No pericecal inflammatory changes identified. COLON: Nondistended colon. URINARY BLADDER: Poole catheter and nondistended urinary bladder. Urinary bladder wall thickening present. Underdistention versus cystitis. REPRODUCTIVE SYSTEM: Reproductive structures are unremarkable. PNEUMOPERITONEUM: Small foci of free air in the upper abdomen likely related to recent suprapubic catheterization. PERITONEAL FLUID:None BONY STRUCTURES: Right hip fixation hardware. Lumbar degeneration with mild scoliosis. ABDOMINAL WALL: Unremarkable tract of the suprapubic catheter. No soft tissue fluid collections. CT/CT abdomen pelvis wo con IMPRESSION: Increasing basilar parenchymal changes with developing small pleuraleffusions. Scattered bilateral nephrolithiasis. Similar right hydronephrosis. Suprapubic catheter removed. Continued small foci of free air likely postsurgical. Slight increase of pelvic free fluid. Intermediate hyperden sity. May represent small amount of hemoperitoneum. No active bleeding present. Developing dilated small bowel loops with smooth transition at the terminal ileum. Likely represents ileus. No obvious findings of bowel perforation.. Impression dictated by: Woody Burkett M.D.10/08/2024 8:02 AM Dictation Location[facility] Transcribed By: [facility] 10/08/24 0802 Dictated By: Woody Burkett DO 10/08/24 0747 Signed By: 10/08/24 0802 [facility]03-08-2025 Progress note Author Luis Santoro [facility] Note Date/Time October 07, 2024 1:54 pm [facility] [address] [place], [place] [id number] Hospitalist Progress Note Signed with Addenda Patient: Alessandra Hardy MR#: [id number] : 1960 Acct:[id number] Age/Sex: 64 / F Adm Date: 5 Loc: Room: [address] [place] [address] Type: ADM IN Attending Dr: Luis Santoro MD Copies to: ~ ADDENDUM1 Ordered CT Chest PE for this patient given her tachycardia and hypoxia Will give IV fluids for now Addendum Documented By: Luis Santoro MD 10/07/24 1454 Addendum Signed By: <Electronically signed by Luis Santoro MD> 10/07/24 1454 Date of Service: 10/07/2024 Subjective Subjective Narrative: Patient seen and examined at bedside. Abdominal pain improved today. However patient's persistently tachycardic. I was about to discharge her today however given the tachycardia I will give her some fluids and reassess in a.m. tomorrow heart rate. On the monitor and the twelve-lead EKG there was no evidence of arrhythmia. Exam Physical Exam Vital Signs: Temp Pulse Resp BP Pulse Ox O2 Del Method O2 Flow Rate 98.3 F 115 H 18 129/82 91 L Room Air 2 10/07/24 08:45 10/07/24 13:37 10/07/24 13:37 10/07/24 08:45 10/07/24 13:37 10/07/24 13:37 10/07/24 08:00 Narrative: General: Awake alert, no acute distress HEENT: head atraumatic, normocephalic, moist mucous membranes Neck: supple no masses, no lymphadenopathy CVS: regular rate and rhythm, no murmurs or gallops Respiratory: clear to auscultation bilaterally, no wheezing or crackles, symmetric expansion GI: soft, nondistended, slight tenderness to palpation on the right and left side of her abdomen dressing over suprapubic catheter site is CDI, positive bowel sounds with no organomegaly Extremity: moves all extremities, no restrictions of movements, no calf tenderness, no edema Neuro: AOx3, CN II-VII intact. Moves all extremities in all planes of motion. Skin: dry, intact no rashes or lesions Objective Lab Results 10/07/24 06:17 10/07/24 06:17 Microbiology Results Microbiology 10/04/24 20:05 Blood - Right Hand Blood Culture - Preliminary No Growth 2 Days 10/04/24 19:54 Blood - Right Antecubital Blood Culture - Preliminary No Growth 2 Days 10/04/24 19:09 Urine - Poole Catheter Urine Culture - Final Escherichia coli (ESBL) Meds Allergies and Active Meds Allergies aspirin Allergy (Unknown, Verified 10/04/24 17:27) Unknown Reaction silicone Allergy (Unknown, Verified 10/04/24 17:27) Rash adhesive tape Allergy (Verified 10/04/24 17:27) Rash Active Meds: Active Medications Generic Name Dose Route Start Last Admin Trade Name Freq PRN Reason Stop Dose Admin Acetaminophen 650 mg 10/04/24 21:31 10/05/24 08:56 Acetaminophen 325 Mg Tablet PO 10/04/25 21:30 650 mg Q4H PRN Administration Pain Scale 1 - 5 Al Hydrox/Mg Hydrox/Simethicone 30 ml 10/07/24 03:47 10/07/24 08:59 Mag Hydrox/Al Hydrox/Simeth 30 Ml Udc PO 10/07/25 03:46 30 ml Q4H PRN Administration Indigestion Albuterol 2.5 mg 10/04/24 21:31 Albuterol Neb 2.5 Mg/3 Ml Vial.Neb INHALATION 10/04/25 21:30 Q2H PRN Shortness Of Breath Docusate Sodium 200 mg 10/04/24 21:31 Docusate 100 Mg Capsule PO 10/04/25 21:30 BID PRN Constipation Fludrocortisone Acetate 0.05 mg 10/05/24 09:00 10/07/24 08:58 Fludrocortisone Acetate 0.1 Mg Tablet PO 10/05/25 08:59 0.05 mg QAM TRAVON Administration Fluoxetine HCl 10 mg 10/05/24 09:00 10/07/24 08:59 Fluoxetine 10 Mg Capsule PO 10/05/25 08:59 10 mg QAM TRAVON Administration Heparin Sodium (Porcine) 5,000 unit 10/06/24 22:00 10/07/24 06:12 Heparin 5,000 Unit/Ml Vial SUBCUT 10/06/25 21:59 5,000 unit Q8HR TRAVON Administration Hydralazine HCl 10 mg 10/04/24 21:31 Hydralazine 20 Mg/Ml Vial IV-PUSH 10/04/25 21:30 Q4H PRN if SBP > 185 Lamotrigine 100 mg 10/05/24 09:00 10/07/24 08:59 Lamotrigine 100 Mg Tablet PO 10/05/25 08:59 100 mg BID TRAVON Administration Morphine Sulfate 2 mg 10/05/24 11:37 10/05/24 22:12 Morphine Sulfate 2 Mg/Ml Vial IV-PUSH 2 mg Q4H PRN Administration abdominal pain Nitrofurantoin Macrocrystals 100 mg 10/06/24 17:00 10/07/24 08:59 Nitrofurantoin Monohyd/M-Cryst 100 Mg Capsule PO 10/11/24 16:59 100 mg BID.WITH.MEALS TRAVON Administration Nortriptyline HCl 20 mg 10/04/24 22:30 10/06/24 21:41 Nortriptyline 10 Mg Capsule PO 10/04/25 22:29 20 mg QHS TRAVON Administration Oxycodone HCl 5 mg 10/04/24 21:31 10/06/24 08:12 Oxycodone Ir 5 Mg Tablet PO 5 mg Q4HR PRN Administration Pain Pantoprazole Sodium 40 mg 10/05/24 07:30 10/07/24 08:59 Pantoprazole 40 Mg Tablet. PO 10/05/25 07:29 40 mg DAILY.AC.BKFAST TRAVON Administration Sodium Chloride 0 ml 10/04/24 17:27 10/06/24 04:54 Sodium Chloride 0.9 % 10 Ml Syringe IV-PUSH 10/04/25 17:26 10 ml PRN PRN Administration Flush A&P - Hospitalist Assessment/Plan (1) Neurogenic bladder, NOS: Plan Complicated UTI in setting of neurogenic bladder, as well as unsuccessful replacement of suprapubic catheter on October 03 Urology attempted to replace the suprapubic catheter in the emergency room and was unable to. Please see op notes for details on that. ? Poole catheter was placed, it is draining well ? Patient to be discharged with Poole catheter in place for outpatient follow- upwith Dr. Allan regarding the decision to replace the suprapubic catheter in thefuture -Appreciate ID recommendations, ID meropenem was switched to nitrofurantoin 100 mg p.o. twice daily for a total of 5 days -Will continue pt on telemetry for today, start IV fluids, and will reassess in am her HR, if HR is not improved I will consult with cardiology -Patient is afebrile with no leukocytosis. Blood cultures were negative after 2days. She is not bleeding from anywhere. She hemorrhagic or septic etiology orruled out. MS--continue p.o. fludrocortisone DVT prophylaxis>>Started on HSQ Documented By: Luis Santoro MD 10/07/24 1445 Signed By: <Electronically signed by Luis Santoro MD> 10/07/24 1450 [facility] Work Phone: [phone] 453-196703-08-2025 Radiology Diagnostic study [facility] Main [place] [address] [place] [address] CT Scan Report Signed Patient: Alessandra Hardy MR#: [id number] : 1960 Acct:[id number] Age/Sex: 64 / F ADM Date: 5 Loc: Room: [address] [place] [address] Type: ADM IN Attending Dr: Luis Santoro MD Copies to: Luis Santoro MD~ Ordering Provider: Luis Santoro MD Date of Service: 10/07/24 CT/CT angio chest PE protocol: Rule out PE CTA Chest with PE protocol TECHNIQUE: Axial imaging with 2-D and 3-D reconstruction. 90cc of Isovue-[address] exam was performed using one or more the following dose reduction techniques: Automated exposure control, adjustment of the MA and/or Kvaccording to patient size, or use of the iterative reconstruction technique. History: Tachycardia. COMPARISON: 05/18/2024 THYROID: Unremarkable TRACHEA AND BRONCHI: Patent ESOPHAGUS: Unremarkable. HEART: Within normal limits PERICARDIAL EFFUSION: None CORONARY ARTERY CALCIFICATION: None MEDIASTINUM: No adenopathy. No pneumoperitoneum. No mediastinal hematoma. PULMONARY MARY: No hilar mass or adenopathy is seen. THORACIC AORTA Unremarkable PULMONARY EMBOLUS: None LUNG NODULE None LUNGS: The basilar atelectasis. Low lung volumes. PLEURAL EFFUSION: Small right pleural effusion. Minimal bilateral basilar atelectasis. PNEUMOTHORAX: No pneumothorax seen. CHEST WALL: No abnormality AXILLA: Unremarkable BONY STRUCTURES are stable thoracic compression deformities and vertebroplasty change. No new compression fracture. UPPER ABDOMEN: Upper abdominal ascites. Fluid-filled stomach. CT/CT angio chest PE protocol IMPRESSION: No acute pulmonary embolus. Basilar atelectasis. A minimal right pleural effusion. upper abdominal ascites. Impression dictated by: Woody Burkett M.D.10/07/2024 4:44 PM Dictation Location: [facility]--20 Transcribed By: [facility] 10/07/24 164 Dictated By: Woody Burkett DO 10/07/24 1636 Signed By: 10/07/24 1644 [facility]03-08-20[place] [address] Hospitalist Progress Note Signed with Addenda Patient: Alessandra Hardy MR#: [id number] : 1960 Acct:[id number] Age/Sex: 64 / F Adm Date: 5 Loc: Room: [address] [place] [address] Type: ADM IN Attending Dr: Luis Santoro MD Copies to: ~ ADDENDUM1 Ordered CT Chest PE for this patient given her tachycardia and hypoxia Will give IV fluids for now Addendum Documented By: Luis Santoro MD 10/07/24 1454 Addendum Signed By: 10/07/24 1454 Date of Service: 10/07/2024 Subjective Subjective Narrative: Patient seen and examined at bedside. Abdominal pain improved today. However patient's persistentlytachycardic. I was about to discharge her today however given the tachycardia I will give her some fluids and reassess in a.m. tomorrow heart rate. On the monitor and the twelve-lead EKG there was noevidence of arrhythmia. Exam Physical Exam Vital Signs: Temp Pulse Resp BP Pulse Ox O2 Del Method O2 Flow Rate 98.3 F 115 H 18 129/82 91 L Room Air 2 10/07/24 08:45 10/07/24 13:37 10/07/24 13:37 10/07/24 08:45 10/07/24 13:37 10/07/24 13:37 10/07/24 08:00 Narrative: General: Awake alert, no acute distress HEENT: head atraumatic, normocephalic, moist mucous membranes Neck: supple no masses, no lymphadenopathy CVS: regular rate and rhythm, no murmurs or gallops Respiratory: clear to auscultation bilaterally, no wheezing or crackles, symmetric expansion GI: soft, nondistended, slight tenderness to palpation on the right and left side of her abdomen dressing over suprapubic catheter site is CDI, positive bowel sounds with no organomegaly Extremity: moves all extremities, no restrictions of movements, no calf tenderness, no edema Neuro: AOx3, CN II-VII intact. Moves all extremities in all planes of motion. Skin: dry, intact no rashes or lesions Objective Lab Results 10/07/24 06:17 10/07/24 06:17 Microbiology Results Microbiology 10/04/24 20:05 Blood - Right Hand Blood Culture - Preliminary No Growth 2 Days 10/04/24 19:54 Blood - Right Antecubital Blood Culture - Preliminary No Growth 2 Days 10/04/24 19:09 Urine - Poole Catheter Urine Culture - Final Escherichia coli (ESBL) Meds Allergies and Active Meds Allergies aspirin Allergy (Unknown, Verified 10/04/24 17:27) Unknown Reaction silicone Allergy (Unknown, Verified 10/04/24 17:27) Rash adhesive tape Allergy (Verified 10/04/24 17:27) Rash Active Meds: Active Medications Generic Name Dose Route Start Last Admin Trade Name Freq PRN Reason Stop Dose Admin Acetaminophen 650 mg 10/04/24 21:31 10/05/24 08:56 Acetaminophen 325 Mg Tablet PO 10/04/25 21:30 650 mg Q4H PRN Administration Pain Scale 1 - 5 Al Hydrox/Mg Hydrox/Simethicone 30 ml 10/07/24 03:47 10/07/24 08:59 Mag Hydrox/Al Hydrox/Simeth 30 Ml Udc PO 10/07/25 03:46 30 ml Q4H PRN Administration Indigestion Albuterol 2.5 mg 10/04/24 21:31 Albuterol Neb 2.5 Mg/3 Ml Vial.Neb INHALATION 10/04/25 21:30 Q2H PRN Shortness Of Breath Docusate Sodium 200 mg 10/04/24 21:31 Docusate 100 Mg Capsule PO 10/04/25 21:30 BID PRN Constipation Fludrocortisone Acetate 0.05 mg 10/05/24 09:00 10/07/24 08:58 Fludrocortisone Acetate 0.1 Mg Tablet PO 10/05/25 08:59 0.05 mg QAM TRAVON Administration Fluoxetine HCl 10 mg 10/05/24 09:00 10/07/24 08:59 Fluoxetine 10 Mg Capsule PO 10/05/25 08:59 10 mg QAM TRAVON Administration Heparin Sodium (Porcine) 5,000 unit 10/06/24 22:00 10/07/24 06:12 Heparin 5,000 Unit/Ml Vial SUBCUT 10/06/25 21:59 5,000 unit Q8HR TRAVON Administration Hydralazine HCl 10 mg 10/04/24 21:31 Hydralazine 20 Mg/Ml Vial IV-PUSH 10/04/25 21:30 Q4H PRN if SBP > 185 Lamotrigine 100 mg 10/05/24 09:00 10/07/24 08:59 Lamotrigine 100 Mg Tablet PO 10/05/25 08:59 100 mg BID TRAVON Administration Morphine Sulfate 2 mg 10/05/24 11:37 10/05/24 22:12 Morphine Sulfate 2 Mg/Ml Vial IV-PUSH 2 mg Q4H PRN Administration abdominal pain Nitrofurantoin Macrocrystals 100 mg 10/06/24 17:00 10/07/24 08:59 Nitrofurantoin Monohyd/M-Cryst 100 Mg Capsule PO 10/11/24 16:59 100 mg BID.WITH.MEALS TRAVON Administration Nortriptyline HCl 20 mg 10/04/24 22:30 10/06/24 21:41 Nortriptyline 10 Mg Capsule PO 10/04/25 22:29 20 mg QHS TRAVON Administration Oxycodone HCl 5 mg 10/04/24 21:31 10/06/24 08:12 Oxycodone Ir 5 Mg Tablet PO 5 mg Q4HR PRN Administration Pain Pantoprazole Sodium 40 mg 10/05/24 07:30 10/07/24 08:59 Pantoprazole 40 Mg Tablet.Dr PO 10/05/25 07:29 40 mg DAILY.AC.BKFAST TRAVON Administration Sodium Chloride 0 ml 10/04/24 17:27 10/06/24 04:54 Sodium Chloride 0.9 % 10 Ml Syringe IV-PUSH 10/04/25 17:26 10 ml PRN PRN Administration Flush A&P - Hospitalist Assessment/Plan (1) Neurogenic bladder, NOS: Plan Complicated UTI in setting of neurogenic bladder, as well as unsuccessful replacement of suprapubiccatheter on October 03 Urology attempted to replace the suprapubic catheter in the emergency room and was unable to. Please see op notes for details on that. ? Poole catheter was placed, it is draining well ? Patient to be discharged with Poole catheter in place for outpatient follow- upwith Dr. Allan regarding the decision to replace the suprapubic catheter in thefuture -Appreciate ID recommendations, ID meropenem was switched to nitrofurantoin 100 mg p.o. twice dailyfor a total of 5 days -Will continue pt on telemetry for today, start IV fluids, and will reassess in am her HR, if HR isnot improved I will consult with cardiology -Patient is afebrile with no leukocytosis. Blood cultures were negative after 2days. She is not bleeding from anywhere. She hemorrhagic or septic etiology orruled out. MS--continue p.o. fludrocortisone DVT prophylaxis>>Started on HSQ Documented By: Luis Santoro MD 10/07/241444 Signed By: 10/07/24 1450 [facility]03-08-2025 Progress note Author Luis Santoro [facility] Note Date/Time October 07, 2024 6:13 am [facility] [address] [place] [address] Hospitalist Progress Note Signed Patient: Alessandra Hardy MR#: [id number] : 1960 Acct:[id number] Age/Sex: 64 / F Adm Date: 5 Loc: 4 Room: [address] [place] [address] Type: ADM IN Attending Dr: Luis Santoro MD Copies to: ~ Date of Service: 10/06/2024 Subjective Subjective Narrative: Patient seen and examined at bedside. Still having abdominal discomfort mainly lower around the suprapubic site. Exam Physical Exam Vital Signs: Temp Pulse Resp BP Pulse Ox O2 Del Method O2 Flow Rate 98.6 F 116 H 20 125/73 92 L Nasal Cannula 2 10/06/24 16:00 10/06/24 16:00 10/06/24 16:00 10/06/24 16:00 10/06/24 16:00 10/06/24 16:00 10/06/24 16:00 Narrative: General: Awake alert, no acute distress HEENT: head atraumatic, normocephalic, moist mucous membranes Neck: supple no masses, no lymphadenopathy CVS: regular rate and rhythm, no murmurs or gallops Respiratory: clear to auscultation bilaterally, no wheezing or crackles, symmetric expansion GI: soft, nondistended, slight tenderness to palpation on the right and left side of her abdomen dressing over suprapubic catheter site is CDI, positive bowel sounds with no organomegaly Extremity: moves all extremities, no restrictions of movements, no calf tenderness, no edema Neuro: AOx3, CN II-VII intact. Moves all extremities in all planes of motion. Skin: dry, intact no rashes or lesions Objective Lab Results 10/05/24 04:20 10/05/24 04:20 Microbiology Results Microbiology 10/04/24 19:09 Urine - Poole Catheter Urine Culture - Final Escherichia coli (ESBL) 10/04/24 20:05 Blood - Right Hand Blood Culture - Preliminary No Growth 1 Day 10/04/24 19:54 Blood - Right Antecubital Blood Culture - Preliminary No Growth 1 Day Meds Allergies and Active Meds Allergies aspirin Allergy (Unknown, Verified 10/04/24 17:27) Unknown Reaction silicone Allergy (Unknown, Verified 10/04/24 17:27) Rash adhesive tape Allergy (Verified 10/04/24 17:27) Rash Active Meds: Active Medications Generic Name Dose Route Start Last Admin Trade Name Freq PRN Reason Stop Dose Admin Acetaminophen 650 mg 10/04/24 21:31 10/05/24 08:56 Acetaminophen 325 Mg Tablet PO 10/04/25 21:30 650 mg Q4H PRN Administration Pain Scale 1 - 5 Albuterol 2.5 mg 10/04/24 21:31 Albuterol Neb 2.5 Mg/3 Ml Vial.Neb INHALATION 10/04/25 21:30 Q2H PRN Shortness Of Breath Docusate Sodium 200 mg 10/04/24 21:31 Docusate 100 Mg Capsule PO 10/04/25 21:30 BID PRN Constipation Fludrocortisone Acetate 0.05 mg 10/05/24 09:00 10/06/24 08:12 Fludrocortisone Acetate 0.1 Mg Tablet PO 10/05/25 08:59 0.05 mg QAM TRAVON Administration Fluoxetine HCl 10 mg 10/05/24 09:00 10/06/24 08:13 Fluoxetine 10 Mg Capsule PO 10/05/25 08:59 10 mg QAM TRAVON Administration Hydralazine HCl 10 mg 10/04/24 21:31 Hydralazine 20 Mg/Ml Vial IV-PUSH 10/04/25 21:30 Q4H PRN if SBP > 185 Lamotrigine 100 mg 10/05/24 09:00 10/06/24 08:13 Lamotrigine 100 Mg Tablet PO 10/05/25 08:59 100 mg BID TRAVON Administration Morphine Sulfate 2 mg 10/05/24 11:37 10/05/24 22:12 Morphine Sulfate 2 Mg/Ml Vial IV-PUSH 2 mg Q4H PRN Administration abdominal pain Nitrofurantoin Macrocrystals 100 mg 10/06/24 17:00 Nitrofurantoin Monohyd/M-Cryst 100 Mg Capsule PO 10/11/24 16:59 BID.WITH.MEALS TRAVON Nortriptyline HCl 20 mg 10/04/24 22:30 10/05/24 22:12 Nortriptyline 10 Mg Capsule PO 10/04/25 22:29 20 mg QHS TRAVON Administration Oxycodone HCl 5 mg 10/04/24 21:31 10/06/24 08:12 Oxycodone Ir 5 Mg Tablet PO 5 mg Q4HR PRN Administration Pain Pantoprazole Sodium 40 mg 10/05/24 07:30 10/06/24 08:12 Pantoprazole 40 Mg Tablet.Dr PO 10/05/25 07:29 40 mg DAILY.AC.BKFAST TRAVON Administration Sodium Chloride 0 ml 10/04/24 17:27 10/06/24 04:54 Sodium Chloride 0.9 % 10 Ml Syringe IV-PUSH 10/04/25 17:26 10 ml PRN PRN Administration Flush A&P - Hospitalist Assessment/Plan (1) Neurogenic bladder, NOS: Plan Complicated UTI in setting of neurogenic bladder, as well as unsuccessful replacement of suprapubic catheter on October 03 Urology attempted to replace the suprapubic catheter in the emergency room and was unable to. Please see op notes for details on that. ? Poole catheter was placed, it is draining well ? Patient to be discharged with Poole catheter in place for outpatient follow- upwith Dr. Allan regarding the decision to replace the suprapubic catheter in thefuture -Appreciate ID recommendations, ID meropenem was switched to nitrofurantoin 100 mg p.o. twice daily for a total of 5 days MS--continue p.o. fludrocortisone DVT prophylaxis>>Started on HSQ Time Spent With Patient (min): 50 Documented By: Luis Santoro MD 10/06/24 165 Signed By: <Electronically signed by Luis Santoro MD> 10/07/247[address] [facility] Work Phone: 1(244) 491-682303-08-2025 [place] [address] Hospitalist Progress Note Signed Patient: Alessandra Hardy MR#: [id number] : 1960 Acct:[id number] Age/Sex: 64 / F Adm Date: 5 Loc: Room: [address] [place] [address] Type: ADM IN Attending Dr: Luis Santoro MD Copies to: ~ Date of Service: 10/06/2024 Subjective Subjective Narrative: Patient seen and examined at bedside. Still having abdominal discomfort mainly lower around the suprapubic site. Exam Physical Exam Vital Signs: Temp Pulse Resp BP Pulse Ox O2 Del Method O2 Flow Rate 98.6 F 116 H 20 125/73 92 L Nasal Cannula 2 10/06/24 16:00 10/06/24 16:00 10/06/24 16:00 10/06/24 16:00 10/06/24 16:00 10/06/24 16:10/06/24 16:00 Narrative: General: Awake alert, no acute distress HEENT: head atraumatic, normocephalic, moist mucous membranes Neck: supple no masses, no lymphadenopathy CVS: regular rate and rhythm, no murmurs or gallops Respiratory: clear to auscultation bilaterally, no wheezing or crackles, symmetric expansion GI: soft, nondistended, slight tenderness to palpation on the right and left side of her abdomen dressing over suprapubic catheter site is CDI, positive bowel sounds with no organomegaly Extremity: moves all extremities, no restrictions of movements, no calf tenderness, no edema Neuro: AOx3, CN II-VII intact. Moves all extremities in all planes of motion. Skin: dry, intact no rashes or lesions Objective Lab Results 10/05/24 04:20 10/05/24 04:20 Microbiology Results Microbiology 10/04/24 19:09 Urine - Poole Catheter Urine Culture - Final Escherichia coli (ESBL) 10/04/24 20:05 Blood - Right Hand Blood Culture - Preliminary No Growth 1 Day 10/04/24 19:54 Blood - Right Antecubital Blood Culture - Preliminary No Growth 1 Day Meds Allergies and Active Meds Allergies aspirin Allergy (Unknown, Verified 10/04/24 17:27) Unknown Reaction silicone Allergy (Unknown, Verified 10/04/24 17:27) Rash adhesive tape Allergy (Verified 10/04/24 17:27) Rash Active Meds: Active Medications Generic Name Dose Route Start Last Admin Trade Name Freq PRN Reason Stop Dose Admin Acetaminophen 650 mg 10/04/24 21:31 10/05/24 08:56 Acetaminophen 325 Mg Tablet PO 10/04/25 21:30 650 mg Q4H PRN Administration Pain Scale 1 - 5 Albuterol 2.5 mg 10/04/24 21:31 Albuterol Neb 2.5 Mg/3 Ml Vial.Neb INHALATION 10/04/25 21:30 Q2H PRN Shortness Of Breath Docusate Sodium 200 mg 10/04/24 21:31 Docusate 100 Mg Capsule PO 10/04/25 21:30 BID PRN Constipation Fludrocortisone Acetate 0.05 mg 10/05/24 09:00 10/06/24 08:12 Fludrocortisone Acetate 0.1 Mg Tablet PO 10/05/25 08:59 0.05 mg QAM TRAVON Administration Fluoxetine HCl 10 mg 10/05/24 09:00 10/06/24 08:13 Fluoxetine 10 Mg Capsule PO 10/05/25 08:59 10 mg QAM TRAVON Administration Hydralazine HCl 10 mg 10/04/24 21:31 Hydralazine 20 Mg/Ml Vial IV-PUSH 10/04/25 21:30 Q4H PRN if SBP > 185 Lamotrigine 100 mg 10/05/24 09:00 10/06/24 08:13 Lamotrigine 100 Mg Tablet PO 10/05/25 08:59 100 mg BID TRAVON Administration Morphine Sulfate 2 mg 10/05/24 11:37 10/05/24 22:12 Morphine Sulfate 2 Mg/Ml Vial IV-PUSH 2 mg Q4H PRN Administration abdominal pain Nitrofurantoin Macrocrystals 100 mg 10/06/24 17:00 Nitrofurantoin Monohyd/M-Cryst 100 Mg Capsule PO 10/11/24 16:59 BID.WITH.MEALS TRAVON Nortriptyline HCl 20 mg 10/04/24 22:30 10/05/24 22:12 Nortriptyline 10 Mg Capsule PO 10/04/25 22:29 20 mg QHS TRAVON Administration Oxycodone HCl 5 mg 10/04/24 21:31 10/06/24 08:12 Oxycodone Ir 5 Mg Tablet PO 5 mg Q4HR PRN Administration Pain Pantoprazole Sodium 40 mg 10/05/24 07:30 10/06/24 08:12 Pantoprazole 40 Mg Tablet. PO 10/05/25 07:29 40 mg DAILY.AC.BKFAST TRAVON Administration Sodium Chloride 0 ml 10/04/24 17:27 10/06/24 04:54 Sodium Chloride 0.9 % 10 Ml Syringe IV-PUSH 10/04/25 17:26 10 ml PRN PRN Administration Flush A&P - Hospitalist Assessment/Plan (1) Neurogenic bladder, NOS: Plan Complicated UTI in setting of neurogenic bladder, as well as unsuccessful replacement of suprapubiccatheter on October 03 Urology attempted to replace the suprapubic catheter in the emergency room and was unable to. Please see op notes for details on that. ? Poole catheter was placed, it is draining well ? Patient to be discharged with Poole catheter in place for outpatient follow- upwith Dr. Allan regarding the decision to replace the suprapubic catheter in thefuture -Appreciate ID recommendations, ID meropenem was switched to nitrofurantoin 100 mg p.o. twice dailyfor a total of 5 days MS--continue p.o. fludrocortisone DVT prophylaxis>>Started on HSQ Time Spent With Patient (min): 50 Documented By: Luis Santoro MD 10/06/24 1658 Signed By: 10/07/24 0713 [facility]03-07-2025 Consult note Author Americo Maldonado [facility] Note Date/Time October 06, 2024 10:5 8am [facility] [address] [place] [address] Infect. Disease Consult Note Signed Patient: Alessandra Hardy MR#: [id number] : 1960 Acct:[id number] Age/Sex: 64 / F Adm Date: 5 Loc: Room: [address] [place] [address] Type: ADM IN Attending Dr: Luis Santoro MD Copies to: MD Luis Wakefield MD Robert J Vaschak, DO~ HPI Data of Consult Consult date: 10/06/24 Requesting Physician: Luis Santoro MD Primary Care Provider: Neva Miller DO Consult Narrative History of present illness: Ms. Hardy is a 64 year old female due to a malfunctioning suprapubic catheter that was placed about a month ago. She had a recent tube change at urology's office and was then sent back to nursing facility. It was noted the tube was not draining and the patient apparently developed some lower abdominal pain. She was sent back to the ER. They difficulty replacing the tube so ultimately Dr. Jennings attempted but was not successful. At this time she is a Poole catheter. Patient has a history of MS and neurogenic bladder. She was started on meropenem. Apparently she has a history of recurrent UTIs. In looking back at her microbiological culture she has grown various Klebsiella as, E. coli's, Pseudomonas and some these have been resistant with ESBL's. CC: Luis Santoro MD [facility] Medical History (Updated 10/06/24 @ 11:54 by Americo Maldonado MD) Poole catheter present Other lack of coordination Need for assistance with personal care Difficulty in walking, not elsewhere classified Other fracture of upper and lower end of left fibula, subsequent encounter for closed fracture with nonunion Radiculopathy, cervical region Erythema intertrigo Venous insufficiency (chronic) (peripheral) Dysphagia GERD (gastroesophageal reflux disease) Other abnormalities of gait and mobility Unsteadiness on feet Personal history of (healed) traumatic fracture History of falling Major depressive disorder, recurrent, unspecified Syncope and collapse GERD without esophagitis Cognitive communication deficit Muscle weakness (generalized) Unspecified lack of coordination Other seizures history of Congenital mitral stenosis Transient cerebral ischemic attack, unspecified Neuromuscular dysfunction of bladder, unspecified Age-related osteoporosis without current pathological fracture Cellulitis of right lower limb Multiple sclerosis Surgical History History of cystoscopy patient reports previous left stent placement History of tonsillectomy History of orthopedic surgery ankle and thigh surgery History of tubal ligation Family History Father Melanoma S/P CABG x 3 Myocardial infarction Mother Dementia Social History Smoking Status: Never smoker Tobacco Type: cigarettes Substance Use Type: None Allergies and Medications Allergies and Active Meds Allergies aspirin Allergy (Unknown, Verified 10/04/24 17:27) Unknown Reaction silicone Allergy (Unknown, Verified 10/04/24 17:27) Rash adhesive tape Allergy (Verified 10/04/24 17:27) Rash Active Medications Acetaminophen (Acetaminophen 325 Mg Tablet) 650 mg PO Q4H PRN PRN Reason: Pain Scale 1 - 5 Stop: 10/04/25 21:30 Last Admin: 10/05/24 08:56 Dose: 650 mg Albuterol (Albuterol Neb 2.5 Mg/3 Ml Vial.Neb) 2.5 mg INHALATION Q2H PRN PRN Reason: Shortness Of Breath Stop: 10/04/25 21:30 Docusate Sodium (Docusate 100 Mg Capsule) 200 mg PO BID PRN PRN Reason: Constipation Stop: 10/04/25 21:30 Fludrocortisone Acetate (Fludrocortisone Acetate 0.1 Mg Tablet) 0.05 mg PO QAM [facility] Stop: 10/05/25 08:59 Last Admin: 10/06/24 08:12 Dose: 0.05 mg Fluoxetine HCl (Fluoxetine 10 Mg Capsule) 10 mg PO QAM [facility] Stop: 10/05/25 08:59 Last Admin: 10/06/24 08:13 Dose: 10 mg Hydralazine HCl (Hydralazine 20 Mg/Ml Vial) 10 mg IV-PUSH Q4H PRN PRN Reason: if SBP > 185 Stop: 10/04/25 21:30 Meropenem (Merrem) 1 gm in 100 mls @ 33.333 mls/hr IV Q8H [facility] Lamotrigine (Lamotrigine 100 Mg Tablet) 100 mg PO BID [facility] Stop: 10/05/25 08:59 Last Admin: 10/06/24 08:13 Dose: 100 mg Morphine Sulfate (Morphine Sulfate 2 Mg/Ml Vial) 2 mg IV-PUSH Q4H PRN PRN Reason: abdominal pain Last Admin: 10/05/24 22:12 Dose: 2 mg Nortriptyline HCl (Nortriptyline 10 Mg Capsule) 20 mg PO QHS TRAVON Stop: 10/04/25 22:29 Last Admin: 10/05/24 22:12 Dose: 20 mg Oxycodone HCl (Oxycodone Ir 5 Mg Tablet) 5 mg PO Q4HR PRN PRN Reason: Pain Last Admin: 10/06/24 08:12 Dose: 5 mg Pantoprazole Sodium (Pantoprazole 40 Mg Tablet.Dr) 40 mg PO DAILY.AC.BKFAST [facility] Stop: 10/05/25 07:29 Last Admin: 10/06/24 08:12 Dose: 40 mg Sodium Chloride (Sodium Chloride 0.9 % 10 Ml Syringe) 0 ml IV-PUSH PRN PRN PRN Reason: Flush Stop: 10/04/25 17:26 Last Admin: 10/06/24 04:54 Dose: 10 ml Exam Physical Exam Vital Signs: Temp Pulse Resp BP Pulse Ox O2 Del Method O2 Flow Rate 97.9 F 116 H 20 134/68 91 L Nasal Cannula 2 10/06/24 08:00 10/06/24 08:00 10/06/24 08:00 10/06/24 08:00 10/06/24 08:00 10/06/24 08:00 10/06/24 08:00 Const General: cooperative, comfortable and no acute distress Orientation: alert and awake HEENT Head: normal to inspection Eyes General: appearance normal, both eyes and all related structures Neck Neck: normal visual inspection Chest Chest palpation & inspection: normal inspection of the chest Resp Effort & Inspection: normal respiratory effort Cardio Palpation: normal PMI Rhythm: regular rhythm GI Inspection: normal to inspection Palpation: soft and nontender Other: Prior suprapubic area with dressing over. Skin General: no rashes or lesions noted Neuro General: patient alert and patient awake Extrem General: normal to inspection Results - Infectious Disease Labs 10/05/24 04:20 10/05/24 04:20 Labs: 10/04/24 19:09 Urine Color Yellow Urine Appearance Turbid A Urine pH 7.0 Ur Specific [place] 1.015 Urine Protein 50 H Urine Glucose (UA) Normal Urine Ketones Trace H Urine Occult Blood 2+ H Urine Nitrite Positive H Urine Bilirubin Negative Urine Urobilinogen Normal Ur Leukocyte Esterase 4+ H Urine RBC Innumerable H Urine WBC Innumerable H Urine WBC Clumps Many H Ur Squamous Epith Cells 3-4 H Urine Bacteria None seen Hyaline Casts None Microbiology Results Microbiology Narrative: 10/04/24 19:09 Urine Culture - Final Urine - Poole Catheter Escherichia coli (ESBL) 10/04/24 20:05 Blood Culture - Preliminary Blood - Right Hand No Growth 1 Day 10/04/24 19:54 Blood Culture - Preliminary Blood - Right Antecubital No Growth 1 Day Imaging and Cardiology Status: report viewed by me Results Comments: ABD CT: BASILAR PARENCHYMAL CHANGES. BILATERAL NEPHROLITHIASIS, LARGER ON THE RIGHT WITHIN THE RENAL PELVIS WHERE THERE IS ASSOCIATED HYDRONEPHROSIS. SUPRAPUBIC CATHETER, NOT WITHIN THE URINARY BLADDER. SMALL AMOUNT OF FREE AIR WHICH IS LIKELY RELATED TO CATHETER INSERTION. TRACE OF FREE PELVIC FLUID. 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 She is already put on meropenem. Blood cultures are negative at 1 day. She will if ongoing treatment is warranted could suggest nitrofurantoin for 5 more days. Documented By: Americo Maldonado MD 10/06/24 1150 Signed By: <Electronically signed by MD Americo Maldonado> 10/06/24 1158 [facility] Work Phone: 1(195) 652-868203-07-2025 [place] [address] Infect. Disease Consult Note Signed Patient: Alessandra Hardy MR#: [id number] : 1960 Acct:[id number] Age/Sex: 64 / F Adm Date: 5 Loc: 4 Room: [address] [place] [address] Type: ADM IN Attending Dr: Luis Santoro MD Copies to: MD Luis Wakefield MD Robert J Vaschak, DO~ HPI Data of Consult Consult date: 10/06/24 Requesting Physician: Luis Santoro MD Primary Care Provider: Neva Miller DO Consult Narrative History of present illness: Ms. Hardy is a 64 year old female due to a malfunctioning suprapubic catheter that was placed abouta month ago. She had a recent tube change at urology's office and was then sent back to nursing facility. It was noted the tube was not draining and the patient apparently developed some lower abdominal pain. She was sent back to the ER. They difficulty replacing the tube so ultimately Dr. Jennings attempted but was not successful. At this time she is a Poole catheter. Patient has a history of MS andneurogenic bladder. She was started on meropenem. Apparently she has a history of recurrent UTIs. In looking back at her microbiological culture she has grown various Klebsiella as, E. coli's, Pseudom onas and some these have been resistant with ESBL's. CC: Luis Santoro MD [facility] Medical History (Updated 10/06/24 @ 11:54 by Americo Maldonado MD) Poole catheter present Other lack of coordination Need for assistance with personal care Difficulty in walking, not elsewhere classified Other fracture of upper and lower end of left fibula, subsequent encounter for closed fracture withnonunion Radiculopathy, cervical region Erythema intertrigo Venous insufficiency (chronic) (peripheral) Dysphagia GERD (gastroesophageal reflux disease) Other abnormalities of gait and mobility Unsteadiness on feet Personal history of (healed) traumatic fracture History of falling Major depressive disorder, recurrent, unspecified Syncope and collapse GERD without esophagitis Cognitive communication deficit Muscle weakness (generalized) Unspecified lack of coordination Other seizures history of Congenital mitral stenosis Transient cerebral ischemic attack, unspecified Neuromuscular dysfunction of bladder, unspecified Age-related osteoporosis without current pathological fracture Cellulitis of right lower limb Multiple sclerosis Surgical History History of cystoscopy patient reports previous left stent placement History of tonsillectomy History of orthopedic surgery ankle and thigh surgery History of tubal ligation Family History Father Melanoma S/P CABG x 3 Myocardial infarction Mother Dementia Social History Smoking Status: Never smoker Tobacco Type: cigarettes Substance Use Type: None Allergies and Medications Allergies and Active Meds Allergies aspirin Allergy (Unknown, Verified 10/04/24 17:27) Unknown Reaction silicone Allergy (Unknown, Verified 10/04/24 17:27) Rash adhesive tape Allergy (Verified 10/04/24 17:27) Rash Active Medications Acetaminophen (Acetaminophen 325 Mg Tablet) 650 mg PO Q4H PRN PRN Reason: Pain Scale 1 - 5 Stop: 10/04/25 21:30 Last Admin: 10/05/24 08:56 Dose: 650 mg Albuterol (Albuterol Neb 2.5 Mg/3 Ml Vial.Neb) 2.5 mg INHALATION Q2H PRN PRN Reason: Shortness Of Breath Stop: 10/04/25 21:30 Docusate Sodium (Docusate 100 Mg Capsule) 200 mg PO BID PRN PRN Reason: Constipation Stop: 10/04/25 21:30 Fludrocortisone Acetate (Fludrocortisone Acetate 0.1 Mg Tablet) 0.05 mg PO QAM [facility] Stop: 10/05/25 08:59 Last Admin: 10/06/24 08:12 Dose: 0.05 mg Fluoxetine HCl (Fluoxetine 10 Mg Capsule) 10 mg PO QAM [facility] Stop: 10/05/25 08:59 Last Admin: 10/06/24 08:13 Dose: 10 mg Hydralazine HCl (Hydralazine 20 Mg/Ml Vial) 10 mg IV-PUSH Q4H PRN PRN Reason: if SBP > 185 Stop: 10/04/25 21:30 Meropenem (Merrem) 1 gm in 100 mls @ 33.333 mls/hr IV Q8H [facility] Lamotrigine (Lamotrigine 100 Mg Tablet) 100 mg PO BID [facility] Stop: 10/05/25 08:59 Last Admin: 10/06/24 08:13 Dose: 100 mg Morphine Sulfate (Morphine Sulfate 2 Mg/Ml Vial) 2 mg IV-PUSH Q4H PRN PRN Reason: abdominal pain Last Admin: 10/05/24 22:12 Dose: 2 mg Nortriptyline HCl (Nortriptyline 10 Mg Capsule) 20 mg PO QHS [facility] Stop: 10/04/25 22:29 Last Admin: 10/05/24 22:12 Dose: 20 mg Oxycodone HCl (Oxycodone Ir 5 Mg Tablet) 5 mg PO Q4HR PRN PRN Reason: Pain Last Admin: 10/06/24 08:12 Dose: 5 mg Pantoprazole Sodium (Pantoprazole 40 Mg Tablet.) 40 mg PO DAILY.[facility]NER.BKFAST TRAVON Stop: 10/05/25 07:29 Last Admin: 10/06/24 08:12 Dose: 40 mg Sodium Chloride (Sodium Chloride 0.9 % 10 Ml Syringe) 0 ml IV-PUSH PRN PRN PRN Reason: Flush Stop: 10/04/25 17:26 Last Admin: 10/06/24 04:54 Dose: 10 ml Exam Physical Exam Vital Signs: Temp Pulse Resp BP Pulse Ox O2 Del Method O2 Flow Rate 97.9 F 116 H 20 134/68 91 L Nasal Cannula 2 10/06/24 08:00 10/06/24 08:00 10/06/24 08:00 10/06/24 08:00 10/06/24 08:00 10/06/24 08:00 10/06/24 08:00 Const General: cooperative, comfortable and no acute distress Orientation: alert and awake HEENT Head: normal to inspection Eyes General: appearance normal, both eyes and all related structures Neck Neck: normal visual inspection Chest Chest palpation & inspection: normal inspection of the chest Resp Effort & Inspection: normal respiratory effort Cardio Palpation: normal PMI Rhythm: regular rhythm GI Inspection: normal to inspection Palpation: soft and nontender Other: Prior suprapubic area with dressing over. Skin General: no rashes or lesions noted Neuro General: patient alert and patient awake Extrem General: normal to inspection Results - Infectious Disease Labs 10/05/24 04:20 10/05/24 04:20 Labs: 10/04/24 19:09 Urine Color Yellow Urine Appearance Turbid A Urine pH 7.0 Ur Specific [place] 1.015 Urine Protein 50 H Urine Glucose (UA) Normal Urine Ketones Trace H Urine Occult Blood 2+ H Urine Nitrite Positive H Urine Bilirubin Negative Urine Urobilinogen Normal Ur Leukocyte Esterase 4+ H Urine RBC Innumerable H Urine WBC Innumerable H Urine WBC Clumps Many H Ur Squamous Epith Cells 3-4 H Urine Bacteria None seen Hyaline Casts None Microbiology Results Microbiology Narrative: 10/04/24 19:09 Urine Culture - Final Urine - Poole Catheter Escherichia coli (ESBL) 10/04/24 20:05 Blood Culture - Preliminary Blood - Right Hand No Growth 1 Day 10/04/24 19:54 Blood Culture - Preliminary Blood - Right Antecubital No Growth 1 Day Imaging and Cardiology Status: report viewed by me Results Comments: ABD CT: BASILAR PARENCHYMAL CHANGES. BILATERAL NEPHROLITHIASIS, LARGER ON THE RIGHT WITHIN THE RENAL PELVIS WHERE THERE IS ASSOCIATED HYDRONEPHROSIS. SUPRAPUBIC CATHETER, NOT WITHIN THE URINARY BLADDER. SMALL AMOUNT OF FREE AIR WHICH IS LIKELY RELATED TO CATHETER INSERTION. TRACE OF FREE PELVIC FLUID. 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 She is already put on meropenem. Bloodcultures are negative at 1 day. She will if ongoing treatment is warranted could suggest nitrofurantoin for 5 more days. Documented By: Americo Maldonado MD 10/06/24 1150 Signed By: 10/06/24 1158 [facility]03-07-2025 History and physical note Author Virginia Gaviria [facility] Note Date/Time October 06, 2024 5:51 am [facility] [address] [place] [address] Hospitalist H&P Signed Patient: Alessandra Hardy MR#: [id number] : 1960 Acct:[id number] Age/Sex: 64 / F Adm Date: 5 Loc: Room: [address] [place] [address] Type: ADM IN Attending Dr: Sameer Jenkins DO Copies to: DO Virginia Patrick MD Shawn J Warner, DO~ HPI DATE OF EXAMINATION: 10/04/24 HISTORY OF PRESENT ILLNESS: 64 years old female with a history of MS and neurogenic bladder, status post suprapubic catheter placed by Dr. Allan last month, presented to urology officeyesterday for suprapubic tube change. It was difficult, but was changed and sent back to nursing facility. Since then the nursing staff noted decreased urine output and patient did develop lower abdominal pain associated with nauseaand 1 episode of vomiting. In emergency room attempt was made to irrigate the catheter without success, suprapubic catheter was removed by Dr. Mendes, urology was consulted and patient underwent bedside endoscopy of suprapubic tubetract with unsuccessful attempt at replacement suprapubic tube. Poole catheter was placed draining approximately 300 cc of urine I did see the patient emergency room, she was lying in flat position, she still complained of lower abdominal pain. Denies any constipation denies any diarrhea. Denies any fever any chills. While in ER she developed left-sided chest/shoulder pain which is worse with breathing and palpation, she denies any underlying history of coronary artery disease 10 systems are reviewed and are negative apart as mentioned H&P General -patient is sleepy alert oriented ?3, does not appear to be in distress,she is lying in flat position, she does not appear to be in respiratory distress HEENT -normal oropharyngeal mucosa without any ulcers or exudates Cardiovascular -S1 plus S2, with regular rate, without any murmurs, gallops, rubs Pulmonary -clear to auscultation bilaterally Gastrointestinal -abdomen is quite firm, with hypoactive bowel sounds, and diffusely tender , Suprapubic catheter is out Neurological -no focal Skin -no significant ulcers, no rash noted Extremities - no edema in bilateral lower extremities noted Psychiatry - appropriate affect [facility] Medical History (Updated 10/04/24 @ 21:58 by Bong Jennings MD) Poole catheter present Other lack of coordination Need for assistance with personal care Difficulty in walking, not elsewhere classified Other fracture of upper and lower end of left fibula, subsequent encounter for closed fracture with nonunion Radiculopathy, cervical region Erythema intertrigo Venous insufficiency (chronic) (peripheral) Dysphagia GERD (gastroesophageal reflux disease) Other abnormalities of gait and mobility Unsteadiness on feet Personal history of (healed) traumatic fracture History of falling Major depressive disorder, recurrent, unspecified Syncope and collapse GERD without esophagitis Cognitive communication deficit Muscle weakness (generalized) Unspecified lack of coordination Other seizures history of Congenital mitral stenosis Transient cerebral ischemic attack, unspecified Neuromuscular dysfunction of bladder, unspecified Age-related osteoporosis without current pathological fracture Cellulitis of right lower limb Multiple sclerosis Surgical History History of cystoscopy patient reports previous left stent placement History of tonsillectomy History of orthopedic surgery ankle and thigh surgery History of tubal ligation Family History Father Melanoma S/P CABG x 3 Myocardial infarction Mother Dementia Social History Smoking Status: Never smoker Tobacco Type: cigarettes Substance Use Type: None Meds Medications and Allergies Allergies aspirin Allergy (Unknown, Verified 10/04/24 17:27) Unknown Reaction silicone Allergy (Unknown, Verified 10/04/24 17:27) Rash adhesive tape Allergy (Verified 10/04/24 17:27) Rash Home Medications fludrocortisone 0.1 mg tablet 0.05 mg PO QAM cellulitis 04/23/21 [History Confirmed 10/04/24] lamotrigine 100 mg tablet 100 mg PO BID seizures 04/23/21 [History Confirmed 10/04/24] nortriptyline 10 mg capsule 20 mg PO QHS 04/23/21 [History Confirmed 10/04/24] cholecalciferol (vitamin D3) 25 mcg (1,000 unit) tablet (Vitamin D3) 75 mcg PO QAM 12/11/21 [History Confirmed 10/04/24] menthol 3.2 mg lozenges 3.2 mg PO DIRECTED 05/12/22 [History Confirmed 10/04/24] fluoxetine 10 mg capsule (Prozac) 10 mg PO QAM 05/26/22 [History Confirmed 10/04/24] bisacodyl 10 mg rectal suppository 10 mg PA DAILY PRN constipation 07/28/23 [History Confirmed 10/04/24] magnesium hydroxide 400 mg/5 mL oral suspension (Milk of Magnesia) 2,400 mg PO DAILY PRN constipation 07/28/23 [History Confirmed 10/04/24] acetaminophen 325 mg capsule 650 mg PO Q6HR PRN pain 10/17/23 [History Confirmed 10/04/24] omeprazole 20 mg capsule,delayed release 20 mg PO QAM 05/16/24 [History Confirmed 10/04/24] carboxymethylcellulose sodium 1 % eye drops (Artificial Tears (carboxymethylcellulose)) 1 drp Eye-Both BID-QID PRN dry eye(s) 07/24/24 [History Confirmed 10/04/24] eucalyptus oil-aloe extr-lavender,janett oil-petrolatum top ointment (Vicks Babyrub topical ointment) 1 applic topical QID PRN chest congestion 10/04/24 [History Confirmed 10/04/24] miconazole nitrate 2 % topical powder (Miconazorb AF) 1 applic topical TID PRN excoriation 10/04/24 [History Confirmed 10/04/24] tacrolimus 0.1 % topical ointment 1 applic topical DAILY 10/04/24 [History Confirmed 10/04/24] Exam Physical Exam Vital Signs: Temp Pulse Resp BP Pulse Ox O2 Del Method O2 Flow Rate 36.9 C 98 20 141/81 H 99 Nasal Cannula 4 10/04/24 18:54 10/04/24 20:58 10/04/24 20:58 10/04/24 20:58 10/04/24 20:58 10/04/24 20:58 10/04/24 20:58 Results - Hospitalist H&P Lab Results Labs: Laboratory Last Values Corrected WBC 14.5 X10E3/uL (3.8-11.6) H 10/04/24 18:03 Uncorrected WBC Count 14.5 x10E3/uL (3.8-11.6) H 10/04/24 18:03 RBC 4.31 x10E6/uL (3.60-5.00) 10/04/24 18:03 Hgb 12.9 g/dL (11.8-15.4) 10/04/24 18:03 Hct 38.5 % (34.0-46.4) 10/04/24 18:03 MCV 89.3 fl (80-100) 10/04/24 18:03 MCH 29.9 pg (24.7-34.3) 10/04/24 18:03 MCHC 33.4 g/dL (32.0-35.0) 10/04/24 18:03 RDW 13.9 % (11.9-15.3) 10/04/24 18:03 Plt Count 271 x10E3/uL (150-450) 10/04/24 18:03 MPV 7.4 fl (6.3-10.7) 10/04/24 18:03 Neut % (Auto) 82.8 % (.) 10/04/24 18:03 Lymph % (Auto) 10.4 % (.) 10/04/24 18:03 [place] % (Auto) 5.5 % (.) 10/04/24 18:03 Eos % (Auto) 0.8 % (.) 10/04/24 18:03 Baso % (Auto) 0.5 % (.) 10/04/24 18:03 Nucleat RBC Rel Count 0.1 /100 WBC (0-0.5) 10/04/24 18:03 Neut # (Auto) 12.0 x10E3/uL (1.8-7.7) H 10/04/24 18:03 Lymph # (Auto) 1.5 x10E3/uL (1.00-4.8) 10/04/24 18:03 [place] # (Auto) 0.8 x10E3/uL (0.0-0.8) 10/04/24 18:03 Eos # (Auto) 0.1 x10E3/uL (0.0-0.45) 10/04/24 18:03 Baso # (Auto) 0.1 x10E3/uL (0.0-0.2) 10/04/24 18:03 Monocyte Dist Width 29.09 % (0.00-20.00) H 10/04/24 18:03 PHA Creatinine Clear 71.42 10/04/24 18:03 Sodium 136 mmol/L (136-145) 10/04/24 18:03 Potassium 3.9 mmol/L (3.5-5.1) 10/04/24 18:03 Chloride 102 mmol/L (98-107) 10/04/24 18:03 Carbon Dioxide 26.7 mmol/L (21.0-31.0) 10/04/24 18:03 Anion Gap 11.2 mEq/L (6.0-15.0) 10/04/24 18:03 BUN 15 mg/dL (7-25) 10/04/24 18:03 Creatinine 1.03 mg/dL (0.60-1.20) 10/04/24 18:03 Est GFR (CKD-EPI) > 60.0 mL/Min 10/04/24 18:03 Glucose 122 mg/dL (70-100) H 10/04/24 18:03 Lactic Acid 0.9 mmol/L (0.5-1.9) 10/04/24 19:54 Calcium 9.4 mg/dL (8.6-10.3) 10/04/24 18:03 Total Bilirubin 0.6 mg/dl (0.3-1.0) 10/04/24 20:20 Direct Bilirubin 0.10 mg/dL (0.03-0.18) 10/04/24 20:20 Indirect Bilirubin 0.5 mg/dL 10/04/24 20:20 AST 17 U/L (13-39) 10/04/24 20:20 ALT 10 U/L (7-52) 10/04/24 20:20 Alkaline Phosphatase 78 U/L (34-104) 10/04/24 20:20 Total Protein 6.8 gm/dL (6.4-8.9) 10/04/24 20:20 Albumin 3.0 gm/dL (3.5-5.7) L 10/04/24 20:20 Globulin 3.8 gm/dL 10/04/24 20:20 Albumin/Globulin Ratio 0.8 10/04/24 20:20 Urine Color Yellow (Yellow) 10/04/24 19:09 Urine Appearance Turbid (Clear) A 10/04/24 19:09 Urine pH 7.0 (5.0-9.0) 10/04/24 19:09 Ur Specific [place] 1.015 (1.001-1.030) 10/04/24 19:09 Urine Protein 50 mg/dL (Negative) H 10/04/24 19:09 Urine Glucose (UA) Normal mg/dL (Normal) 10/04/24 19:09 Urine Ketones Trace (Negative) H 10/04/24 19:09 Urine Occult Blood 2+ (Negative) H 10/04/24 19:09 Urine Nitrite Positive (Negative) H 10/04/24 19:09 Urine Bilirubin Negative (Negative) 10/04/24 19:09 Urine Urobilinogen Normal mg/dL (Normal) 10/04/24 19:09 Ur Leukocyte Esterase 4+ (Negative) H 10/04/24 19:09 Urine RBC Innumerable /HPF (0-4) H 10/04/24 19:09 Urine WBC Innumerable /HPF (0-4) H 10/04/24 19:09 Urine WBC Clumps Many /LPF (None Seen) H 10/04/24 19:09 Ur Squamous Epith Cells 3-4 /HPF (0-2) H 10/04/24 19:09 Urine Bacteria None seen /HPF (None Seen) 10/04/24 19:09 Hyaline Casts None /LPF (0-8) 10/04/24 19:09 Assessment & Plan Assessment/Plan (1) Neurogenic bladder, NOS: Plan 1. Replacement of suprapubic catheter on October 03, since then significant decrease in urine output with development of abdominal pain In ER surgery catheter was removed and unable to replace by ER physician and urologist Plan for possible surgical intervention in a.m. Questionable complex acute cystitis due to neurogenic bladder and chronic suprapubic catheter, she did have a history of Pseudomonas and ESBL in the past,will cover with meropenem as she does have leukocytosis N.p.o. after midnight, hydration 2. MS 3. DVT prophylaxis, SCDs for now, hold chemoprophylaxis due to possible surgical intervention IP vs OBS Justification Based on differential dx, clinical care plan, and risk of adverse events, if untreated, in my clinical judgement this patient requires an acute care setting as: INPATIENT because of an expectation of an over 2 midnight stay. Estimated length of stay (# of days): 3 Documented By: Virginia Gaviria MD 10/04/242210 Signed By: <Electronically signed by Virginia Gaviria MD> 10/06/24 0651 [facility] Work Phone: 1(273) 399-535203-07-2025 [place] [address] Hospitalist H&P Signed Patient: Alessandra Hardy MR#: [id number] : 1960 Acct:[id number] Age/Sex: 64 / F Adm Date: 5 Loc: Room: [address] [place] [address] Type: ADM IN Attending Dr: Sameer Jenkins DO Copies to: DO Virginia Patrick MD Shawn J Warner, ~ HPI DATE OF EXAMINATION: 10/04/24 HISTORY OF PRESENT ILLNESS: 64 years old female with a history of MS and neurogenic bladder, status post suprapubic catheter placed by Dr. Allan last month, presented to urology officeyesterday for suprapubic tube change. It was difficult, but was changed and sent back to nursing facility. Since then the nursing staff noted decreased urine output and patient did develop lower abdominal pain associated with nauseaand 1 episode of vomiting. In emergency room attempt was made to irrigate the catheter without success, suprapubic catheter was removed by Dr. Mendes, urology was consulted and patient underwent bedside endoscopy of suprapubic tubetract with unsuccessful attempt at replacement suprapubic tube. Poole catheter was placed draining approximately 300 cc of urine I did see the patient emergency room, she was lying in flat position, she still complained of lowerabdominal pain. Denies any constipation denies any diarrhea. Denies any fever any chills. While in ER she developed left-sided chest/shoulder pain which is worse with breathing and palpation, she denies any underlying history of coronary artery disease 10 systems are reviewed and are negative apart as mentioned H&P General -patient is sleepy alert oriented ?3, does not appear to be in distress,she is lying in flat position, she does not appear to be in respiratory distress HEENT -normal oropharyngeal mucosa without any ulcers or exudates Cardiovascular -S1 plus S2, with regular rate, without any murmurs, gallops, rubs Pulmonary -clear to auscultation bilaterally Gastrointestinal -abdomen is quite firm, with hypoactive bowel sounds, and diffusely tender , Suprapubic catheter is out Neurological -no focal Skin -no significant ulcers, no rash noted Extremities - no edema in bilateral lower extremities noted Psychiatry - appropriate affect [facility] Medical History (Updated 10/04/24 @ 21:58 by Bong Jennings MD) Poole catheter present Other lack of coordination Need for assistance with personal care Difficulty in walking, not elsewhere classified Other fracture of upper and lower end of left fibula, subsequent encounter for closed fracture withnonunion Radiculopathy, cervical region Erythema intertrigo Venous insufficiency (chronic) (peripheral) Dysphagia GERD (gastroesophageal reflux disease) Other abnormalities of gait and mobility Unsteadiness on feet Personal history of (healed) traumatic fracture History of falling Major depressive disorder, recurrent, unspecified Syncope and collapse GERD without esophagitis Cognitive communication deficit Muscle weakness (generalized) Unspecified lack of coordination Other seizures history of Congenital mitral stenosis Transient cerebral ischemic attack, unspecified Neuromuscular dysfunction of bladder, unspecified Age-related osteoporosis without current pathological fracture Cellulitis of right lower limb Multiple sclerosis Surgical History History of cystoscopy patient reports previous left stent placement History of tonsillectomy History of orthopedic surgery ankle and thigh surgery History of tubal ligation Family History Father Melanoma S/P CABG x 3 Myocardial infarction Mother Dementia Social History Smoking Status: Never smoker Tobacco Type: cigarettes Substance Use Type: None Meds Medications and Allergies Allergies aspirin Allergy (Unknown, Verified 10/04/24 17:27) Unknown Reaction silicone Allergy (Unknown, Verified 10/04/24 17:27) Rash adhesive tape Allergy (Verified 10/04/24 17:27) Rash Home Medications fludrocortisone 0.1 mg tablet 0.05 mg PO QAM cellulitis 04/23/21 [History Confirmed 10/04/24] lamotrigine 100 mg tablet 100 mg PO BID seizures 04/23/21 [History Confirmed 10/04/24] nortriptyline 10 mg capsule 20 mg PO QHS 04/23/21 [History Confirmed 10/04/24] cholecalciferol (vitamin D3) 25 mcg (1,000 unit) tablet (Vitamin D3) 75 mcg PO QAM 12/11/21 [History Confirmed 10/04/24] menthol 3.2 mg lozenges 3.2 mg PO DIRECTED 05/12/22 [History Confirmed 10/04/24] fluoxetine 10 mg capsule (Prozac) 10 mg PO QAM 05/26/22 [History Confirmed 10/04/24] bisacodyl 10 mg rectal suppository 10 mg PA DAILY PRN constipation 07/28/23 [History Confirmed 10/04/24] magnesium hydroxide 400 mg/5 mL oral suspension (Milk of Magnesia) 2,400 mg PO DAILY PRN constipation 07/28/23 [History Confirmed 10/04/24] acetaminophen 325 mg capsule 650 mg PO Q6HR PRN pain 10/17/23 [History Confirmed 10/04/24] omeprazole 20 mg capsule,delayed release 20 mg PO QAM 05/16/24 [History Confirmed 10/04/24] carboxymethylcellulose sodium 1 % eye drops (Artificial Tears (carboxymethylcellulose)) 1 drp Eye-Both BID-QID PRN dry eye(s) 07/24/24 [History Confirmed 10/04/24] eucalyptus oil-aloe extr-lavender,janett oil-petrolatum top ointment (Vicks Babyrub topical ointment) 1 applic topical QID PRN chest congestion 10/04/24 [History Confirmed 10/04/24] miconazole nitrate 2 % topical powder (Miconazorb AF) 1 applic topical TID PRN excoriation 10/04/24[History Confirmed 10/04/24] tacrolimus 0.1 % topical ointment 1 applic topical DAILY 10/04/24 [History Confirmed 10/04/24] Exam Physical Exam Vital Signs: Temp Pulse Resp BP Pulse Ox O2 Del Method O2 Flow Rate 36.9 C 98 20 141/81 H 99 Nasal Cannula 4 10/04/24 18:54 10/04/24 20:58 10/04/24 20:58 10/04/24 20:58 10/04/24 20:58 10/04/24 20:58 10/04/24 20:58 Results - Hospitalist H&P Lab Results Labs: Laboratory Last Values Corrected WBC 14.5 X10E3/uL (3.8-11.6) H 10/04/24 18:03 Uncorrected WBC Count 14.5 x10E3/uL (3.8-11.6) H 10/04/24 18:03 RBC 4.31 x10E6/uL (3.60-5.00) 10/04/24 18:03 Hgb 12.9 g/dL (11.8-15.4) 10/04/24 18:03 Hct 38.5 % (34.0-46.4) 10/04/24 18:03 MCV 89.3 fl (80-100) 10/04/24 18:03 MCH 29.9 pg (24.7-34.3) 10/04/24 18:03 MCHC 33.4 g/dL (32.0-35.0) 10/04/24 18:03 RDW 13.9 % (11.9-15.3) 10/04/24 18:03 Plt Count 271 x10E3/uL (150-450) 10/04/24 18:03 MPV 7.4 fl (6.3-10.7) 10/04/24 18:03 Neut % (Auto) 82.8 % (.) 10/04/24 18:03 Lymph % (Auto) 10.4 % (.) 10/04/24 18:03 [place] % (Auto) 5.5 % (.) 10/04/24 18:03 Eos % (Auto) 0.8 % (.) 10/04/24 18:03 Baso % (Auto) 0.5 % (.) 10/04/24 18:03 Nucleat RBC Rel Count 0.1 /100 WBC (0-0.5) 10/04/24 18:03 Neut # (Auto) 12.0 x10E3/uL (1.8-7.7) H 10/04/24 18:03 Lymph # (Auto) 1.5 x10E3/uL (1.00-4.8) 10/04/24 18:03 [place] # (Auto) 0.8 x10E3/uL (0.0-0.8) 10/04/24 18:03 Eos # (Auto) 0.1 x10E3/uL (0.0-0.45) 10/04/24 18:03 Baso # (Auto) 0.1 x10E3/uL (0.0-0.2) 10/04/24 18:03 Monocyte Dist Width 29.09 % (0.00-20.00) H 10/04/24 18:03 PHA Creatinine Clear 71.42 10/04/24 18:03 Sodium 136 mmol/L (136-145) 10/04/24 18:03 Potassium 3.9 mmol/L (3.5-5.1) 10/04/24 18:03 Chloride 102 mmol/L (98-107) 10/04/24 18:03 Carbon Dioxide 26.7 mmol/L (21.0-31.0) 10/04/24 18:03 Anion Gap 11.2 mEq/L (6.0-15.0) 10/04/24 18:03 BUN 15 mg/dL (7-25) 10/04/24 18:03 Creatinine 1.03 mg/dL (0.60-1.20) 10/04/24 18:03 Est GFR (CKD-EPI) > 60.0 mL/Min 10/04/24 18:03 Glucose 122 mg/dL (70-100) H 10/04/24 18:03 Lactic Acid 0.9 mmol/L (0.5-1.9) 10/04/24 19:54 Calcium 9.4 mg/dL (8.6-10.3) 10/04/24 18:03 Total Bilirubin 0.6 mg/dl (0.3-1.0) 10/04/24 20:20 Direct Bilirubin 0.10 mg/dL (0.03-0.18) 10/04/24 20:20 Indirect Bilirubin 0.5 mg/dL 10/04/24 20:20 AST 17 U/L (13-39) 10/04/24 20:20 ALT 10 U/L (7-52) 10/04/24 20:20 Alkaline Phosphatase 78 U/L (34-104) 10/04/24 20:20 Total Protein 6.8 gm/dL (6.4-8.9) 10/04/24 20:20 Albumin 3.0 gm/dL (3.5-5.7) L 10/04/24 20:20 Globulin 3.8 gm/dL 10/04/24 20:20 Albumin/Globulin Ratio 0.8 10/04/24 20:20 Urine Color Yellow (Yellow) 10/04/24 19:09 Urine Appearance Turbid (Clear) A 10/04/24 19:09 Urine pH 7.0 (5.0-9.0) 10/04/24 19:09 Ur Specific [place] 1.015 (1.001-1.030) 10/04/24 19:09 Urine Protein 50 mg/dL (Negative) H 10/04/24 19:09 Urine Glucose (UA) Normal mg/dL (Normal) 10/04/24 19:09 Urine Ketones Trace (Negative) H 10/04/24 19:09 Urine Occult Blood 2+ (Negative) H 10/04/24 19:09 Urine Nitrite Positive (Negative) H 10/04/24 19: Urine Bilirubin Negative (Negative) 10/04/24 19:09 Urine Urobilinogen Normal mg/dL (Normal) 10/04/24 19:09 Ur Leukocyte Esterase 4+ (Negative) H 10/04/24 19:09 Urine RBC Innumerable /HPF (0-4) H 10/04/24 19:09 Urine WBC Innumerable /HPF (0-4) H 10/04/24 19:09 Urine WBC Clumps Many /LPF (None Seen) H 10/04/24 19:09 Ur Squamous Epith Cells 3-4 /HPF (0-2) H 10/04/24 19:09 Urine Bacteria None seen /HPF (None Seen) 10/04/24 19:09 Hyaline Casts None /LPF (0-8) 10/04/24 19:09 Assessment & Plan Assessment/Plan (1) Neurogenic bladder, NOS: Plan 1. Replacement of suprapubic catheter on October 03, since then significant decrease in urine output with development of abdominal pain In ER surgery catheter was removed and unable to replace by ER physician and urologist Plan for possible surgical intervention in a.m. Questionable complex acute cystitis due to neurogenic bladder and chronic suprapubic catheter, she did have a history of Pseudomonas and ESBL in the past,will cover with meropenem as she does have leukocytosis N.p.o. after midnight, hydration 2. MS 3. DVT prophylaxis, SCDs for now, hold chemoprophylaxis due to possible surgical intervention IP vs OBS Justification Based on differential dx, clinical care plan, and risk of adverse events, if untreated, in my clinical judgement this patient requires an acute care setting as: INPATIENT because of an expectation ofan over 2 midnight stay. Estimated length of stay (# of days): 3 Documented By: Virginia Gaviria MD 10/04/242210 Signed By: 10/06/24 0651 [facility]03-06-2025 Progress note Author Sameer Jenkins [facility] Note Date/Time October 05, 2024 12:5 1pm [facility] [address] [place] [address] Hospitalist Progress Note Signed Patient: Alessandra Hardy MR#: [id number] : 1960 Acct:[id number] Age/Sex: 64 / F Adm Date: 5 Loc: 4 Room: [address] [place] [address] Type: ADM IN Attending Dr: Sameer Jenkins DO Copies to: ~ Date of Service: 10/05/2024 Subjective Subjective Narrative: Seen and evaluated, she is currently laying comfortable in bed. The overnight events were reviewed, patient does have some abdominal discomfort which is primarily on the right side and does radiate to the left side. CT scan was reviewed, her dressing is applied over the location where her suprapubic catheter was placed and that is CDI. There is not much tenderness around the dressing. Exam Physical Exam Vital Signs: Temp Pulse Resp BP Pulse Ox O2 Del Method O2 Flow Rate 98.0 F 108 H 20 152/67 H 94 L Nasal Cannula 2 10/05/24 08:02 10/05/24 08:02 10/05/24 08:02 10/05/24 08:02 10/05/24 08:02 10/05/24 08:02 10/05/24 08:02 Narrative: General: Awake alert, no acute distress HEENT: head atraumatic, normocephalic, moist mucous membranes Neck: supple no masses, no lymphadenopathy CVS: regular rate and rhythm, no murmurs or gallops Respiratory: clear to auscultation bilaterally, no wheezing or crackles, symmetric expansion GI: soft, nondistended, slight tenderness to palpation on the right and left side of her abdomen dressing over suprapubic catheter site is CDI, positive bowel sounds with no organomegaly Extremity: moves all extremities, no restrictions of movements, no calf tenderness, no edema Neuro: AOx3, CN II-VII intact. Moves all extremities in all planes of motion. Skin: dry, intact no rashes or lesions Objective Lab Results 10/05/24 04:20 10/05/24 04:20 Microbiology Results Microbiology 10/04/24 19:09 Urine - Poole Catheter Urine Culture - Preliminary Escherichia coli Meds Allergies and Active Meds Allergies aspirin Allergy (Unknown, Verified 10/04/24 17:27) Unknown Reaction silicone Allergy (Unknown, Verified 10/04/24 17:27) Rash adhesive tape Allergy (Verified 10/04/24 17:27) Rash Active Meds: Active Medications Generic Name Dose Route Start Last Admin Trade Name Freq PRN Reason Stop Dose Admin Acetaminophen 650 mg 10/04/24 21:31 10/05/24 08:56 Acetaminophen 325 Mg Tablet PO 10/04/25 21:30 650 mg Q4H PRN Administration Pain Scale 1 - 5 Albuterol 2.5 mg 10/04/24 21:31 Albuterol Neb 2.5 Mg/3 Ml Vial.Neb INHALATION 10/04/25 21:30 Q2H PRN Shortness Of Breath Docusate Sodium 200 mg 10/04/24 21:31 Docusate 100 Mg Capsule PO 10/04/25 21:30 BID PRN Constipation Fludrocortisone Acetate 0.05 mg 10/05/24 09:00 Fludrocortisone Acetate 0.1 Mg Tablet PO 10/05/25 08:59 QAM TRAVON Fluoxetine HCl 10 mg 10/05/24 09:00 Fluoxetine 10 Mg Capsule PO 10/05/25 08:59 QAM TRAVON Hydralazine HCl 10 mg 10/04/24 21:31 Hydralazine 20 Mg/Ml Vial IV-PUSH 10/04/25 21:30 Q4H PRN if SBP > 185 Meropenem 1 gm in 100 mls @ 200 mls/hr 10/05/24 05:00 10/05/24 05:02 Merrem IV 200 mls/hr Q8H TRAVON Administration Lamotrigine 100 mg 10/05/24 09:00 Lamotrigine 100 Mg Tablet PO 10/05/25 08:59 BID TRAVON Morphine Sulfate 2 mg 10/05/24 11:37 10/05/24 11:49 Morphine Sulfate 2 Mg/Ml Vial IV-PUSH 2 mg Q4H PRN Administration abdominal pain Nortriptyline HCl 20 mg 10/04/24 22:30 10/05/24 00:55 Nortriptyline 10 Mg Capsule PO 10/04/25 22:29 20 mg QHS TRAVON Administration Oxycodone HCl 5 mg 10/04/24 21:31 Oxycodone Ir 5 Mg Tablet PO Q4HR PRN Pain Pantoprazole Sodium 40 mg 10/05/24 07:30 Pantoprazole 40 Mg Tablet. PO 10/05/25 07:29 DAILY.AC.BKFAST TRAVON Sodium Chloride 0 ml 10/04/24 17:27 10/05/24 11:50 Sodium Chloride 0.9 % 10 Ml Syringe IV-PUSH 10/04/25 17:26 10 ml PRN PRN Administration Flush A&P - Hospitalist Assessment/Plan (1) UTI (urinary tract infection): Plan: ? Her urine appeared very infected on admission, urine culture already resulted as E. coli. History of ESBL. ? Continue meropenem as ordered (2) Neurogenic bladder, NOS: Plan: ? Urology attempted to replace the suprapubic catheter in the emergency room andwas unable to. Please see op notes for details on that. ? Poole catheter was placed, it is draining well ? Patient to be discharged with Poole catheter in place for outpatient follow- upwith Dr. Allan regarding the decision to replace the suprapubic catheter in thefuture (3) Encounter for suprapubic catheter care: Plan: See above Plan ? DVT prophylaxis addressed ? Normal diet ? DNR CCA with intubation, this was confirmed with the patient the afternoon of 10/05/2024 Documented By: Sameer Jenkins DO 10/05/24 1345 Signed By: <Electronically signed by Sameer Jenkins, > 10/05/24 1351 [facility] Work Phone: 1(258) 537-816303-06-2025 [place] [address] Hospitalist Progress Note Signed Patient: Alessandra Hardy MR#: [id number] : 1960 Acct:[id number] Age/Sex: 64 / F Adm Date: 5 Loc: Room: [address] [place] [address] Type: ADM IN Attending Dr: Sameer Jenkins DO Copies to: ~ Date of Service: 10/05/2024 Subjective Subjective Narrative: Seen and evaluated, she is currently laying comfortable in bed. The overnight events were reviewed,patient does have some abdominal discomfort which is primarily on the right side and does radiate to the left side. CT scan was reviewed, her dressing is applied over the location where her suprapubic catheter was placed and that is CDI. There is not much tenderness around the dressing. Exam Physical Exam Vital Signs: Temp Pulse Resp BP Pulse Ox O2 Del Method O2 Flow Rate 98.0 F 108 H 20 152/67 H 94 L Nasal Cannula 2 10/05/24 08:02 10/05/24 08:02 10/05/24 08:02 10/05/24 08:02 10/05/24 08:02 10/05/24 08:02 10/05/24 08:02 Narrative: General: Awake alert, no acute distress HEENT: head atraumatic, normocephalic, moist mucous membranes Neck: supple no masses, no lymphadenopathy CVS: regular rate and rhythm, no murmurs or gallops Respiratory: clear to auscultation bilaterally, no wheezing or crackles, symmetric expansion GI: soft, nondistended, slight tenderness to palpation on the right and left side of her abdomen dressing over suprapubic catheter site is CDI, positive bowel sounds with no organomegaly Extremity: moves all extremities, no restrictions of movements, no calf tenderness, no edema Neuro: AOx3, CN II-VII intact. Moves all extremities in all planes of motion. Skin: dry, intact no rashes or lesions Objective Lab Results 10/05/24 04:20 10/05/24 04:20 Microbiology Results Microbiology 10/04/24 19:09 Urine - Poole Catheter Urine Culture - Preliminary Escherichia coli Meds Allergies and Active Meds Allergies aspirin Allergy (Unknown, Verified 10/04/24 17:27) Unknown Reaction silicone Allergy (Unknown, Verified 10/04/24 17:27) Rash adhesive tape Allergy (Verified 10/04/24 17:27) Rash Active Meds: Active Medications Generic Name Dose Route Start Last Admin Trade Name Freq PRN Reason Stop Dose Admin Acetaminophen 650 mg 10/04/24 21:31 10/05/24 08:56 Acetaminophen 325 Mg Tablet PO 10/04/25 21:30 650 mg Q4H PRN Administration Pain Scale 1 - 5 Albuterol 2.5 mg 10/04/24 21:31 Albuterol Neb 2.5 Mg/3 Ml Vial.Neb INHALATION 10/04/25 21:30 Q2H PRN Shortness Of Breath Docusate Sodium 200 mg 10/04/24 21:31 Docusate 100 Mg Capsule PO 10/04/25 21:30 BID PRN Constipation Fludrocortisone Acetate 0.05 mg 10/05/24 09:00 Fludrocortisone Acetate 0.1 Mg Tablet PO 10/05/25 08:59 QAM TRAVON Fluoxetine HCl 10 mg 10/05/24 09:00 Fluoxetine 10 Mg Capsule PO 10/05/25 08:59 QAM TRAVON Hydralazine HCl 10 mg 10/04/24 21:31 Hydralazine 20 Mg/Ml Vial IV-PUSH 10/04/25 21:30 Q4H PRN if SBP > 185 Meropenem 1 gm in 100 mls @ 200 mls/hr 10/05/24 05:00 10/05/24 05:02 Merrem IV 200 mls/hr Q8H TRAVON Administration Lamotrigine 100 mg 10/05/24 09:00 Lamotrigine 100 Mg Tablet PO 10/05/25 08:59 BID TRAVON Morphine Sulfate 2 mg 10/05/24 11:37 10/05/24 11:49 Morphine Sulfate 2 Mg/Ml Vial IV-PUSH 2 mg Q4H PRN Administration abdominal pain Nortriptyline HCl 20 mg 10/04/24 22:30 10/05/24 00:55 Nortriptyline 10 Mg Capsule PO 10/04/25 22:29 20 mg QHS TRVAON Administration Oxycodone HCl 5 mg 10/04/24 21:31 Oxycodone Ir 5 Mg Tablet PO Q4HR PRN Pain Pantoprazole Sodium 40 mg 10/05/24 07:30 Pantoprazole 40 Mg Tablet.Dr MENDEZ 10/05/25 07:29 DAILY.AC.BKFAST TRAVON Sodium Chloride 0 ml 10/04/24 17:27 10/05/24 11:50 Sodium Chloride 0.9 % 10 Ml Syringe IV-PUSH 10/04/25 17:26 10 ml PRN PRN Administration Flush A&P - Hospitalist Assessment/Plan (1) UTI (urinary tract infection): Plan: ? Her urine appeared very infected on admission, urine culture already resulted as E. coli. Historyof ESBL. ? Continue meropenem as ordered (2) Neurogenic bladder, NOS: Plan: ? Urology attempted to replace the suprapubic catheter in the emergency room andwas unable to. Please see op notes for details on that. ? Poole catheter was placed, it is draining well ? Patient to be discharged with Poole catheter in place for outpatient follow- upwith Dr. Allan regarding the decision to replace the suprapubic catheter in thefuture (3) Encounter for suprapubic catheter care: Plan: See above Plan ? DVT prophylaxis addressed ? Normal diet ? 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 acute October 04, 2024 9:31pm Multiple sclerosis acute October 04, 2024 9:31pm Neurogenic bladder, NOS acute 2024 9:31pm Sinus tachycardia acute October 042024 9:31pm Suprapubic catheter dysfunction acut e October 04, 2024 9:31pm UTI (urinary tract infection) acute October 04, 2024 9:31pm UTI (urinary tract infection ) due to urinary indwelling Poole catheter acute October 04, 2024 9:31pm [facility] Work Phone: 1(176) 300-272803-05-2025 Evaluation note* Diagnosis Onset Date Resolution Status Admit Date Encounter for suprapubic catheter care acute October 04, 2024 9:31pm 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 acute October 04, 2024 9:31pm Multiple sclerosis acute October 04, 2024 9:31pm Neurogenic bladder, NOS acute 2024 9:31pm Sinus tachycardia acute October 042024 9:31pm Suprapubic catheter dysfunction acut e October 04, 2024 9:31pm UTI (urinary tract infection) acute October 04, 2024 9:31pm UTI (urinary tract infection ) due to urinary indwelling Poole catheter acute October 04, 2024 9:31pm Atypical chest pain resolved October 04, 2024 9:31pm [facility] Work Phone: 1(486) 423-221403-05-2025 Evaluation note* Diagnosis Onset Date Resolution Status Admit Date Encounter for suprapubic catheter care acute October 04, 2024 9:31pm 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 acute October 04, 2024 9:31pm Multiple sclerosis acute October 04, 2024 9:31pm Neurogenic bladder, NOS acute [facility] 2024 9:31pm Suprapubic catheter dysfunction acut e October 04, 2024 9:31pm UTI (urinary tract infection) acute October 04, 2024 9:31pm UTI (urinary tract infection ) due to urinary indwelling Poole catheter acute October 04, 2024 9:31pm Atypical chest pain resolved October 04, 2024 9:31pm Sinus tachycardia resolved October 042024 9:31pm [facility] Work Phone: 1([phone]) 466-511603-05-2025 Consult note Author Bong Jennings [facility] Note Date/Time October 04, 2024 8:59 pm [facility] [address] [place] [address] Urology Consult Note Signed Patient: Alessandra Hardy MR#: [id number] : 1960 Acct:[id number] Age/Sex: 64 / F Adm Date: Loc: ER Room: Type: [facility] ER Attending Dr: Copies to: MD Emre Sandoval DO Robert J Vaschak, DO~ History of Present Illness Consult Details Consult Date: 10/04/2024 HPI: Patient consultation on this 64-year-old white female with long-term multiple sclerosis and neurogenic bladder. She had a suprapubic tube placed by Dr. Allan last month. Yesterday she was seen in the office with a suprapubic tube change. This apparently was difficult. She had to come back into the office with a repeat attempt and the catheter actually never drained well upon transferto her nursing facility. She presents today to the emergency room with lower abdominal discomfort and a nondraining suprapubic catheter. Apparently bladder scan was performed for about 100 cc of leftover urine. An attempt was made to irrigate the catheter without success and it was subsequently removed by Dr. Mendes. He then had troubles reinserting the catheter. After a phone call to me he had placed a wire through the suprapubic tract and again attempted placement of a [place] tipover the wire and felt that it was in good position. He also placed a transurethral catheter. Subsequent CT scan demonstrates that the urethral catheter is in adequate position with a decompressed bladder but the suprapubic tube is not in the bladder and in the suprapubic region. Urologic consultation therefore requested. The entire PMH,PSH,ROS, family and social history, medications, and allergies are reviewed and unchanged from the admission H and P documented by Dr. Mendes [facility] Medical History (Updated 10/04/24 @ 21:58 by Bong Jennings MD) Poole catheter present Other lack of coordination Need for assistance with personal care Difficulty in walking, not elsewhere classified Other fracture of upper and lower end of left fibula, subsequent encounter for closed fracture with nonunion Radiculopathy, cervical region Erythema intertrigo Venous insufficiency (chronic) (peripheral) Dysphagia GERD (gastroesophageal reflux disease) Other abnormalities of gait and mobility Unsteadiness on feet Personal history of (healed) traumatic fracture History of falling Major depressive disorder, recurrent, unspecified Syncope and collapse GERD without esophagitis Cognitive communication deficit Muscle weakness (generalized) Unspecified lack of coordination Other seizures history of Congenital mitral stenosis Transient cerebral ischemic attack, unspecified Neuromuscular dysfunction of bladder, unspecified Age-related osteoporosis without current pathological fracture Cellulitis of right lower limb Multiple sclerosis Surgical History History of cystoscopy patient reports previous left stent placement History of tonsillectomy History of orthopedic surgery ankle and thigh surgery History of tubal ligation Family History Father Melanoma S/P CABG x 3 Myocardial infarction Mother Dementia Social History Smoking Status: Never smoker Tobacco Type: cigarettes Substance Use Type: None Meds Medications and Allergies Allergies aspirin Allergy (Unknown, Verified 10/04/24 17:27) Unknown Reaction silicone Allergy (Unknown, Verified 10/04/24 17:27) Rash adhesive tape Allergy (Verified 10/04/24 17:27) Rash Home Medications fludrocortisone 0.1 mg tablet 0.05 mg PO QAM cellulitis 04/23/21 [History Confirmed 07/24/24] lamotrigine 100 mg tablet 100 mg PO BID seizures 04/23/21 [History Confirmed 07/24/24] nortriptyline 10 mg capsule 20 mg PO QHS 04/23/21 [History Confirmed 07/24/24] cholecalciferol (vitamin D3) 25 mcg (1,000 unit) tablet (Vitamin D3) 75 mcg PO QAM 12/11/21 [History Confirmed 07/24/24] menthol 3.2 mg lozenges 3.2 mg PO DIRECTED 05/12/22 [History Confirmed 07/24/24] fluoxetine 10 mg capsule (Prozac) 10 mg PO QAM 05/26/22 [History Confirmed 07/24/24] bisacodyl 10 mg rectal suppository 10 mg PA DAILY PRN constipation 07/28/23 [History Confirmed 07/24/24] magnesium hydroxide 400 mg/5 mL oral suspension (Milk of Magnesia) 2,400 mg PO DAILY PRN constipation 07/28/23 [History Confirmed 07/24/24] acetaminophen 325 mg capsule 650 mg PO Q6HR PRN pain 10/17/23 [History Confirmed 07/24/24] omeprazole 20 mg capsule,delayed release 20 mg PO QAM 05/16/24 [History Confirmed 07/24/24] zoledronic acid 5 mg/100 mL in mannitol 5 %-water intravenous piggybck (Reclast)ea IV QYEAR 05/16/24 [History] carboxymethylcellulose sodium 1 % eye drops (Artificial Tears (carboxymethylcellulose)) 1 drp Eye-Both BID-QID PRN dry eye(s) 07/24/24 [History Confirmed 07/24/24] dextromethorphan-guaifenesin 10 mg-200 mg/5 mL oral liquid (Adult Wal-Tussin DM Max) 10 ml PO Q6-8H PRN cough 07/24/24 [History Confirmed 07/24/24] miconazole nitrate 2 % topical cream (Antifungal (miconazole)) 1 applic topical TID PRN rash 07/24/24 [History Confirmed 07/24/24] cephalexin 500 mg capsule 500 mg PO BID 7 days #14 caps 08/08/24 [Rx] Exam Physical Exam Vital Signs: Temp Pulse Resp BP Pulse Ox O2 Del Method O2 Flow Rate 98.4 F 98 20 141/81 H 99 Nasal Cannula 4 10/04/24 18:54 10/04/24 20:58 10/04/24 20:58 10/04/24 20:58 10/04/24 20:58 10/04/24 20:58 10/04/24 20:58 Narrative: General: The patient appears nontoxic. Does not appear ill. Skin: Warm, dry. No gross lesions are identified. HEENT: Normocephalic, atraumatic. Pupils equal, round, and reactive to light and accommodation. Oral mucosa moist. Respiratory: No increased respiratory effort. Cardiac: Regular rate and rhythm GI: Abdomen is soft, nontender, negative peritoneal signs, no obvious hepatosplenomegaly. Suprapubic tube site is clear with [place] tip catheter in place, catheter not draining. No surrounding erythema Significant pannus : The bladder is nonpalpable. There is no CVA tenderness bilaterally. Genitalia: Normal external female genitalia. Urethral Poole catheter in place and draining Musculoskeletal: Moves all extremities, normal strength Neurologic: Awake, alert, oriented Psychiatric: Affect normal to clinical condition Results - Urology Labs 10/04/24 18:03 10/04/24 18:03 Labs: Laboratory Results - Last 48 hrs. 10/04/24 20:20: Total Bilirubin 0.6, Direct Bilirubin 0.10, Indirect Bilirubin 0.5, AST 17, ALT 10, Alkaline Phosphatase 78, Total Protein 6.8, Albumin 3.0 L, Globulin 3.8, Albumin/Globulin Ratio 0.8 10/04/24 19:54: Lactic Acid 0.9 10/04/24 19:09: Urine Color Yellow, Urine Appearance Turbid A, Urine pH 7.0, Ur Specific [place] 1.015, Urine Protein 50 H, Urine Glucose (UA) Normal, Urine Ketones Trace H, Urine Occult Blood 2+ H, Urine Nitrite Positive H, Urine Bilirubin Negative, Urine Urobilinogen Normal, Ur Leukocyte Esterase 4+ H, Urine RBC Innumerable H, Urine WBC Innumerable H, Urine WBC Clumps Many H, Ur Squamous Epith Cells 3-4 H, Urine Bacteria None seen, Hyaline Casts None 10/04/24 18:03: Corrected WBC 14.5 H, Uncorrected WBC Count 14.5 H, RBC 4.31, Hgb 12.9, Hct 38.5, MCV 89.3, MCH 29.9, MCHC 33.4, RDW 13.9, Plt Count 271, MPV 7.4, Neut % (Auto) 82.8, Lymph % (Auto) 10.4, [place] % (Auto) 5.5, Eos % (Auto) 0.8, Baso % (Auto) 0.5, Nucleat RBC Rel Count 0.1, Neut # (Auto) 12.0 H, Lymph # (Auto) 1.5, [place] # (Auto) 0.8, Eos # (Auto) 0.1, Baso # (Auto) 0.1, Monocyte Dist Width 29.09 H, PHA Creatinine Clear 71.42, Sodium 136, Potassium 3.9, Chloride 102, Carbon Dioxide 26.7, Anion Gap 11.2, BUN 15, Creatinine 1.03, Est GFR (CKD-EPI) > 60.0, Glucose 122 H, Calcium 9.4 Microbiology Microbiology: 10/04/24 20:05 Blood - Right Hand Blood Culture - Pending 10/04/24 19:54 Blood - Right Antecubital Blood Culture - Pending 10/04/24 19:09 Urine - Poole Catheter Urine Culture - Pending Imaging CT scan - abdomen: report reviewed and image reviewed CT scan - pelvis: report reviewed and image reviewed Additional studies: Reviewed labs, reviewed urinalysis Assessment/Plan (1) Encounter for suprapubic catheter care: Code(s): Z43.5 - Encounter for attention to cystostomy (2) Neurogenic bladder, NOS: Code(s): N31.9 - Neuromuscular dysfunction of bladder, unspecified (3) Multiple sclerosis: Code(s): G35 - Multiple sclerosis (4) UTI (urinary tract infection) due to urinary indwelling Poole catheter: Code(s): T83.511A - Infection and inflammatory reaction due to indwelling urethral catheter, initial encounter; N39.0 - Urinary tract infection, site not specified Plan As noted above in the history of present illness this patient just had a suprapubic tube placed in August of this year with difficulties replacing it. A CT scan confirms that the suprapubic tube is not in the correct position but the urethral Poole catheter is. Discussed with the patient that most likely given the timeframe where the suprapubic tube most likely has not been back into the bladder we will most likely have difficulties placing this this evening. She may require indwelling urethral Poole catheter for now with consideration for repeat suprapubic tube placement under anesthesia in the future. This will have to be discussed with Dr. Allan in the outpatient setting. This is a difficult situation and I did discuss with her that in general once a suprapubic tube has become displaced 1 has about 6 hours or so before it needs replaced before the bladder will heal over. I considered time to be of the essence in this case prompting intervention this evening. The operative record from this evening is dictated under separate cover but I was unable to replace the suprapubic tube even after performing endoscopy through the suprapubic tube tract. I only find false passages. She understands that. During the cystoscopic procedure she had some moderate chest discomfort on the left going down the arm and is now undergoing further workup regarding that. I will be available to follow the patient while hospitalized on a as needed basis from the urologic standpoint. Documented By: Bong Jennings MD 10/04/242141 Signed By: <Electronically signed by MD Bong Jennings> 10/04/24 [id number] [facility] Work Phone: 1(763) 756-983903-05-2025 [place] [id number] Urology Consult Note Signed Patient: Alessandra Hardy MR#: [id number] : 1960 Acct:[id number] Age/Sex: 64 / F Adm Date: 5 Loc: ER Room: Type: [facility] ER Attending Dr: Copies to: MD Emre Sandoval DO Robert J Vaschak, DO~ History of Present Illness Consult Details Consult Date: 10/04/2024 HPI: Patient consultation on this 64-year-old white female with long-term multiple sclerosis and neurogenic bladder. She had a suprapubic tube placed by Dr. Allan last month. Yesterday she was seen in the office with a suprapubic tube change. This apparently was difficult. She had to come back into theoffice with a repeat attempt and the catheter actually never drained well upon transferto her nursing facility. She presents today to the emergency room with lower abdominal discomfort and a nondraining suprapubic catheter. Apparently bladder scan was performed for about 100 cc of leftover urine. An attempt was made to irrigate the catheter without success and it was subsequently removed by Dr. Mendes. He then had troubles reinserting the catheter. After a phone call to me he had placed a wire through the suprapubic tract and again attempted placement of a [place] tipover the wire and felt that it was in good position. He also placed a transurethral catheter. Subsequent CT scan demonstrates that the urethral catheter is in adequate position with a decompressed bladder but the suprapubic tube is notin the bladder and in the suprapubic region. Urologic consultation therefore requested. The entire PMH,PSH,ROS, family and social history, medications, and allergies are reviewed and unchanged from the admission H and P documented by Dr. Mendes [facility] Medical History (Updated 10/04/24 @ 21:58 by Bong Jennings MD) Poole catheter present Other lack of coordination Need for assistance with personal care Difficulty in walking, not elsewhere classified Other fracture of upper and lower end of left fibula, subsequent encounter for closed fracture withnonunion Radiculopathy, cervical region Erythema intertrigo Venous insufficiency (chronic) (peripheral) Dysphagia GERD (gastroesophageal reflux disease) Other abnormalities of gait and mobility Unsteadiness on feet Personal history of (healed) traumatic fracture History of falling Major depressive disorder, recurrent, unspecified Syncope and collapse GERD without esophagitis Cognitive communication deficit Muscle weakness (generalized) Unspecified lack of coordination Other seizures history of Congenital mitral stenosis Transient cerebral ischemic attack, unspecified Neuromuscular dysfunction of bladder, unspecified Age-related osteoporosis without current pathological fracture Cellulitis of right lower limb Multiple sclerosis Surgical History History of cystoscopy patient reports previous left stent placement History of tonsillectomy History of orthopedic surgery ankle and thigh surgery History of tubal ligation Family History Father Melanoma S/P CABG x 3 Myocardial infarction Mother Dementia Social History Smoking Status: Never smoker Tobacco Type: cigarettes Substance Use Type: None Meds Medications and Allergies Allergies aspirin Allergy (Unknown, Verified 10/04/24 17:27) Unknown Reaction silicone Allergy (Unknown, Verified 10/04/24 17:27) Rash adhesive tape Allergy (Verified 10/04/24 17:27) Rash Home Medications fludrocortisone 0.1 mg tablet 0.05 mg PO QAM cellulitis 04/23/21 [History Confirmed 07/24/24] lamotrigine 100 mg tablet 100 mg PO BID seizures 04/23/21 [History Confirmed 07/24/24] nortriptyline 10 mg capsule 20 mg PO QHS 04/23/21 [History Confirmed 07/24/24] cholecalciferol (vitamin D3) 25 mcg (1,000 unit) tablet (Vitamin D3) 75 mcg PO QAM 12/11/21 [History Confirmed 07/24/24] menthol 3.2 mg lozenges 3.2 mg PO DIRECTED 05/12/22 [History Confirmed 07/24/24] fluoxetine 10 mg capsule (Prozac) 10 mg PO QAM 05/26/22 [History Confirmed 07/24/24] bisacodyl 10 mg rectal suppository 10 mg PA DAILY PRN constipation 07/28/23 [History Confirmed 07/24/24] magnesium hydroxide 400 mg/5 mL oral suspension (Milk of Magnesia) 2,400 mg PO DAILY PRN constipation 07/28/23 [History Confirmed 07/24/24] acetaminophen 325 mg capsule 650 mg PO Q6HR PRN pain 10/17/23 [History Confirmed 07/24/24] omeprazole 20 mg capsule,delayed release 20 mg PO QAM 05/16/24 [History Confirmed 07/24/24] zoledronic acid 5 mg/100 mL in mannitol 5 %-water intravenous piggybck (Reclast)ea IV QYEAR 05/16/24 [History] carboxymethylcellulose sodium 1 % eye drops (Artificial Tears (carboxymethylcellulose)) 1 drp Eye-Both BID-QID PRN dry eye(s) 07/24/24 [History Confirmed 07/24/24] dextromethorphan-guaifenesin 10 mg-200 mg/5 mL oral liquid (Adult Wal-Tussin DM Max) 10 ml PO Q6-8HPRN cough 07/24/24 [History Confirmed 07/24/24] miconazole nitrate 2 % topical cream (Antifungal (miconazole)) 1 applic topical TID PRN rash 07/24/24 [History Confirmed 07/24/24] cephalexin 500 mg capsule 500 mg PO BID 7 days #14 caps 08/08/24 [Rx] Exam Physical Exam Vital Signs: Temp Pulse Resp BP Pulse Ox O2 Del Method O2 Flow Rate 98.4 F 98 20 141/81 H 99 Nasal Cannula 4 10/04/24 18:54 10/04/24 20:58 10/04/24 20:58 10/04/24 20:58 10/04/24 20:58 10/04/24 20:58 10/04/24 20:58 Narrative: General: The patient appears nontoxic. Does not appear ill. Skin: Warm, dry. No gross lesions are identified. HEENT: Normocephalic, atraumatic. Pupils equal, round, and reactive to light and accommodation. Oral mucosa moist. Respiratory: No increased respiratory effort. Cardiac: Regular rate and rhythm GI: Abdomen is soft, nontender, negative peritoneal signs, no obvious hepatosplenomegaly. Suprapubic tube site is clear with [place] tip catheter in place, catheter not draining. No surrounding erythema Significant pannus : The bladder is nonpalpable. There is no CVA tenderness bilaterally. Genitalia: Normal external female genitalia. Urethral Poole catheter in place and draining Musculoskeletal: Moves all extremities, normal strength Neurologic: Awake, alert, oriented Psychiatric: Affect normal to clinical condition Results - Urology Labs 10/04/24 18:03 10/04/24 18:03 Labs: Laboratory Results - Last 48 hrs. 10/04/24 20:20: Total Bilirubin 0.6, Direct Bilirubin 0.10, Indirect Bilirubin 0.5, AST 17, ALT 10,Alkaline Phosphatase 78, Total Protein 6.8, Albumin 3.0 L, Globulin 3.8, Albumin/Globulin Ratio 0.8 10/04/24 19:54: Lactic Acid 0.9 10/04/24 19:09: Urine Color Yellow, Urine Appearance Turbid A, Urine pH 7.0, Ur Specific [place] 1.015, Urine Protein 50 H, Urine Glucose (UA) Normal, Urine Ketones Trace H, Urine Occult Blood 2+ H, Urine Nitrite Positive H, Urine Bilirubin Negative, Urine Urobilinogen Normal, Ur Leukocyte Esterase4+ H, Urine RBC Innumerable H, Urine WBC Innumerable H, Urine WBC Clumps Many H, Ur Squamous Epith Cells 3-4 H, Urine Bacteria None seen, Hyaline Casts None 10/04/24 18:03: Corrected WBC 14.5 H, Uncorrected WBC Count 14.5 H, RBC 4.31, Hgb 12.9, Hct 38.5, MCV 89.3, MCH 29.9, MCHC 33.4, RDW 13.9, Plt Count 271, MPV 7.4, Neut % (Auto) 82.8, Lymph % (Auto) 10.4, [place] % (Auto) 5.5, Eos % (Auto) 0.8, Baso % (Auto) 0.5, Nucleat RBC Rel Count 0.1, Neut # (Auto) 12.0 H, Lymph # (Auto) 1.5, [place] # (Auto) 0.8, Eos # (Auto) 0.1, Baso # (Auto) 0.1, Monocyte Dist Width 29.09 H, PHA Creatinine Clear 71.42, Sodium 136, Potassium 3.9, Chloride 102, Carbon Dioxide 26.7, Anion Gap 11.2, BUN 15, Creatinine 1.03, Est GFR (CKD-EPI) > 60.0, Glucose 122 H, Calcium 9.4 Microbiology Microbiology: 10/04/24 20:05 Blood - Right Hand Blood Culture - Pending 10/04/24 19:54 Blood - Right Antecubital Blood Culture - Pending 10/04/24 19:09 Urine - Poole Catheter Urine Culture - Pending Imaging CT scan - abdomen: report reviewed and image reviewed CT scan - pelvis: report reviewed and image reviewed Additional studies: Reviewed labs, reviewed urinalysis Assessment/Plan (1) Encounter for suprapubic catheter care: Code(s): Z43.5 - Encounter for attention to cystostomy (2) Neurogenic bladder, NOS: Code(s): N31.9 - Neuromuscular dysfunction of bladder, unspecified (3) Multiple sclerosis: Code(s): G35 - Multiple sclerosis (4) UTI (urinary tract infection) due to urinary indwelling Poole catheter: Code(s): T83.511A - Infection and inflammatory reaction due to indwelling urethral catheter, initial encounter; N39.0 - Urinary tract infection, site not specified Plan As noted above in the history of present illness this patient just had a suprapubic tube placed in August of this year with difficulties replacing it. A CT scan confirms that the suprapubic tube is not in the correct position but the urethral Poole catheter is. Discussed with the patient that mostlikely given the timeframe where the suprapubic tube most likely has not been back into the bladderwe will most likely have difficulties placing this this evening. She may require indwelling urethral Poole catheter for now with consideration for repeat suprapubic tube placement under anesthesia inthe future. This will have to be discussed with Dr. Allan in the outpatient setting. This is a difficult situation and I did discuss with her that in general once a suprapubic tube hasbecome displaced 1 has about 6 hours or so before it needs replaced before the bladder will heal over. I considered time to be of the essence in this case prompting intervention this evening. The operative record from this evening is dictated under separate cover but I was unable to replacethe suprapubic tube even after performing endoscopy through the suprapubic tube tract. I only find false passages. She understands that. During the cystoscopic procedure she had some moderate chest discomfort on the left going down the arm and is now undergoing further workup regarding that. I will be available to follow the patient [facility] Documented By: Bong Jennings MD 10/04/242141 Signed By: 10/04/242158 [facility]03-05-2025 Radiology Diagnostic study note [facility] Main [place] [address] [place] [address] CT Scan Report Signed Patient: Alessandra Hardy MR#: [id number] : 1960 Acct:[id number] Age/Sex: 64 / F ADM Date: 5 Loc: ER Room: Type: [facility] ER Attending Dr: Copies to: Emre Mendes DO~ Ordering Provider: Emre Mendes DO Date of Service: 10/04/24 CT/CT abdomen pelvis wo con: confirm suprapubic cath placement CT ABDOMEN AND PELVIS WITHOUT CONTRAST CLINICAL DATA: Follow-up suprapubic catheter placement. COMPARISON: 05/18/2024 Spiral images were obtained through the abdomen and pelvis without contrast. This CT exam was performed using one or more following dose reduction techniques: Automated exposure control, adjustment of the mA and/or kV accordingto patient size, or use of iterative reconstruction technique. Limited cuts through the lung bases show elevation of the right hemidiaphragm with adjacent atelectasis and/or scarring. There is also some scarring or atelectasis on the left. Evaluation of the abdominal organs is slightly limited by the absence of contrast. No calcified gallstones are noted. Fatty infiltration of the liver is possible. No intrahepatic masses are seen. Thespleen, pancreas and adrenalglands show no acute findings. A small stone is again visualized at thelower pole of the left kidney. No hydronephrosis is seen on that side. There is a 12mm stone at theright renal pelvis toward the ureteropelvic junction. There is associated moderate hydronephrosis. There is atherosclerotic plaque at the aorta and iliac arteries. Tiny lymph nodes are seen. No ascites is present. There is a small amount of free air below the right hemidiaphragm that may be related to the recent procedure. There is small amount of fluid within the stomach. Small bowel loops are not distended. There is mild stool and some fluid within the colon. There is levoscoliotic curvatureand degenerative changes at the spine. Images through the pelvis show nondistended small bowel. The appendix is not definitely seen. Thereis stool at the distal colon. No diverticular disease is noted. The uterus is slightly retroverted.The urinary bladder is poorly distended. There is a Poole catheter within the bladder. The bladder is not well-distended and the wall appears thickened. There is a suprapubic catheter however it is above and not within the bladder. There is fibrofatty stranding within the subcutaneous fat as well as within the mesentery at the deep pelvis. There is a trace amount of free fluid at posterior cul-de-sac. There is minimalfree air within the pelvis. Patient has a right dynamic hip screw. CT/CT abdomen pelvis wo con IMPRESSION: BASILAR PARENCHYMAL CHANGES. BILATERAL NEPHROLITHIASIS, LARGER ON THE RIGHT WITHIN THE RENAL PELVIS WHERE THERE IS ASSOCIATED HYDRONEPHROSIS. SUPRAPUBIC CATHETER, NOT WITHIN THE URINARY BLADDER. SMALL AMOUNT OF FREE AIR WHICH IS LIKELY RELATED TO CATHETER INSERTION. TRACE OF FREE PELVIC FLUID. Impression dictated by: Marisa Álvarez M.D.10/04/2024 7:56 PM Dictation Location: [place] [address] Transcribed By: [facility] 10/04/241955 Dictated By: Marisa Álvarez MD 10/04/241939 Signed By: 10/04/241955 [facility] Work Phone: [phone] Hospital Discharge instructions Patient Education 09/06/2024 09:51:40 Neurogenic Bladder Neurogenic Bladder Neurogenic bladder is a bladder control disorder. It is usually caused by problems with the nerves that control the bladder. The brain sends signals through the spinal cord to the muscles in the bladder that start and stop urine flow. With neurogenic bladder, the nerves and muscles do not work together the way they should. This condition may make the bladder overactive, meaning you have trouble holding urine. In other cases, it may make the bladder underactive. This means that you have trouble passing urine. What are the causes? This condition may be caused by nerve damage or a condition that disrupts the signals from your brain to your bladder. Many things can cause these nerve problems, including: A disease that affects the nervous system, such as: ?Alzheimer's disease. ?Cerebral palsy. ?Multiple sclerosis. ?Diabetes. ?Parkinson's disease. Damage to your brain or spinal cord. This can come from: ?Trauma. ?Tumors. ?Infection. ?Surgery. ?Alcohol abuse. ?Stroke. ?A congenital disability that affects the spinal cord. What increases the risk? You are more likely to develop this condition if you have nerve damage or a nerve disorder. What are the signs or symptoms? Signs and symptoms of this condition include: Leaking or gushing urine (incontinence). A sudden, strong urge to pass urine (urgency). Frequent urination during the day and night. Being unable to empty your bladder completely (urinary retention). Frequent urinary tract infections. How is this diagnosed? This condition may be diagnosed based on: Your symptoms and medical history. A physical exam. Records from a bladder diary. You may be asked to keep a record or log of your bladder symptoms andthe times that you urinate. You may also have tests, such as: A urine test to check for infection. A bladder scan after you urinate to see how much urine is left in your bladder. Tests to measure your urine flow and see how well the flow is controlled (urodynamic tests). A procedure that uses a small device with a camera to look through your urethra into your bladder (cystoscopy). A health care provider who specializes in the urinary tract (urologist) may do this test. Imaging tests of your brain or spine, such as MRI or CT scan. How is this treated? Treatment for this condition depends on the cause and the symptoms that you have. Work closely withyour health care provider to find the treatments that will improve your quality of life. Treatment options include: Learning ways to control when you urinate, such as: ?Urinating at scheduled times. ?Training yourself to delay urination. ?Exercises to strengthen the muscles that control urine flow (Kegel exercises). ?Avoiding foods or drinks that make your symptoms worse. Taking medicines to: ?Stimulate an underactive bladder. ?Relax an overactive bladder. ?Treat a urinary tract infection. Learning how to use a thin tube (catheter) to empty your bladder. A catheter is a hollow tube that you pass through your urethra. Procedures to stimulate the nerves that control your bladder. Surgery, if other treatments do not help. Follow these instructions at home: Lifestyle Keep a bladder diary to find out which foods, liquids, or activities make your symptoms worse. Use your bladder diary to schedule bathroom trips. If you are away from home, plan to be near a bathroom when your schedule says you will need one. Limit beverages that stimulate urination. These include soda, coffee, and tea. After urinating, wait a few minutes and try again. Make sure you urinate just before you leave the house and just before you go to bed. Kegel exercises Do Kegel exercises to strengthen the muscles that control the passing of urine. These muscles are the ones you use to try to hold urine when you need to urinate. To do Kegel exercises: 1.Squeeze your pelvic floor muscles tight, as if you are trying to stop the flow of urine. You should feel a tight lift in your rectal area. If you are female, you should also feel a tightness in your vaginal area. Keep your stomach, buttocks, and legs relaxed. 2.Hold the muscles tight for 5 10 seconds. 3.Relax your muscles for the same amount of time. 4.Repeat 10 times. Repeat this exercise 3 times a day or as many times as told by your health care provider. General instructions Take sdnq-vgh-ourqrmy and prescription medicines only as told by your health care provider. Keep all follow-up visits. This is important. Contact a health care provider if: You are having a hard time controlling your symptoms. Your symptoms are getting worse. You have signs of a urinary tract infection. These may include: ?A burning feeling when you urinate. ?Fever or chills. ?Cloudy or bloody urine. Get help right away if: You cannot pass urine. Summary Neurogenic bladder is a bladder control disorder caused by problems with the nerves that control the bladder. This condition may make the bladder overactive or underactive. This condition may be caused by nerve damage or a condition that disrupts the signals from your brain to your bladder. Treatment depends on the cause of your neurogenic bladder and the symptoms that you have. Work closely with your health care provider to find the treatments that will improve your quality of life. This information is not intended to replace advice given to you by your health care provider. Make sure you discuss any questions you have with your health care provider. Document Revised: 04/03/2021 Document Reviewed: 04/03/2021 [employer] Patient Education 2023 [employer]. Follow Up Care 06/01/2024 13:40:36 With:JERRELL EVANS, Tammy Burk, URL Address: [facility] [address], [place] [address]- When: Unknown [facility] Jay 02-05-2025 NotePatient Education Urology Neurogenic Bladder Neurogenic bladder is a bladder control disorder. It is usually caused by problems with the nerves that control the bladder. The brain sends signals through the spinal cord to the muscles in the bladder that start and stop urine flow. With neurogenic bladder, the nerves and muscles do not work together the way they should. This condition may make the bladder overactive, meaning you have trouble holding urine. In other cases, it may make the bladder underactive. This means that you have trouble passing urine. What are the causes? This condition may be caused by nerve damage or a condition that disrupts the signals from your brain to your bladder. Many things can cause these nerve problems, including: ??? A disease that affects the nervous system, such as: ? Alzheimer's disease. ? Cerebral palsy. ? Multiple sclerosis. ? Diabetes. ? Parkinson's disease. ??? Damage to your brain or spinal cord. This can come from: ? Trauma. ? Tumors. ? Infection. ? Surgery. ? Alcohol abuse. ? Stroke. ? A congenital disability that affects the spinal cord. What increases the risk? You are more likely to develop this condition if you have nerve damage or a nerve disorder. What are the signs or symptoms? Signs and symptoms of this condition include: ??? Leaking or gushing urine (incontinence). ??? A sudden, strong urge to pass urine (urgency). ??? Frequent urination during the day and night. ??? Being unable to empty your bladder completely (urinary retention). ??? Frequent urinary tract infections. How is this diagnosed? This condition may be diagnosed based on: ??? Your symptoms and medical history. ??? A physical exam. ??? Records from a bladder diary. You may be asked to keep a record or log of your bladder symptomsand the times that you urinate. You may also have tests, such as: ??? A urine test to check for infection. ??? A bladder scan after you urinate to see how much urine is left in your bladder. ??? Tests to measure your urine flow and see how well the flow is controlled (urodynamic tests). ??? A procedure that uses a small device with a camera to look through your urethra into your bladder (cystoscopy). A health care provider who specializes in the urinary tract (urologist) may do thistest. ??? Imaging tests of your brain or spine, such as MRI or CT scan. How is this treated? Treatment for this condition depends on the cause and the symptoms that you have. Work closely withyour health care provider to find the treatments that will improve your quality of life. Treatment options include: ??? Learning ways to control when you urinate, such as: ? Urinating at scheduled times. ? Training yourself to delay urination. ? Exercises to strengthen the muscles that control urine flow (Kegel exercises). ? Avoiding foods or drinks that make your symptoms worse. ??? Taking medicines to: ? Stimulate an underactive bladder. ? Relax an overactive bladder. ? Treat a urinary tract infection. ??? Learning how to use a thin tube (catheter) to empty your bladder. A catheter is a hollow tube that you pass through your urethra. ??? Procedures to stimulate the nerves that control your bladder. ??? Surgery, if other treatments do not help. Follow these instructions at home: Lifestyle ??? Keep a bladder diary to find out which foods, liquids, or activities make your symptoms worse. ??? Use your bladder diary to schedule bathroom trips. If you are away from home, plan to be near [facility] when your schedule says you will need one. ??? Limit beverages that stimulate urination. These include soda, coffee, and tea. ??? After urinating, wait a few minutes and try again. ??? Make sure you urinate just before you leave the house and just before you go to bed. Kegel exercises Do Kegel exercises to strengthen the muscles that control the passing of urine. These muscles are the ones you use to try to hold urine when you need to urinate. To do Kegel exercises: 1. Squeeze your pelvic floor muscles tight, as if you are trying to stop the flow of urine. You should feel a tight lift in your rectal area. If you are female, you should also feel a tightness in your vaginal area. Keep your stomach, buttocks, and legs relaxed. 2. Hold the muscles tight for 5?10 seconds. 3. Relax your muscles for the same amount of time. 4. Repeat 10 times. Repeat this exercise 3 times a day or as many times as told by your health care provider. General instructions ??? Take amyc-wcf-zoefkmy and prescription medicines only as told by your health care provider. ??? Keep all follow-up visits. This is important. Contact a health care provider if: ??? You are having a hard time controlling your symptoms. ??? Your symptoms are getting worse. ??? You have signs of a urinary tract infection. These may include: ? A bur (more content not included)...[facility]01-15-2025 Hospital Discharge instructions Patient Education 08/16/2024 13:23:40 Suture Removal, Care After Suture Removal, Care After The following information offers guidance on how to care for yourself after your procedure. Your health care provider may also give you more specific instructions. If you have problems or questions, contact your health care provider. What can I expect after the procedure? After your stitches (sutures) are removed, it is common to have: Some discomfort and swelling in the area. Slight redness in the area. Follow these instructions at home: If you have a dressing: Wash your hands with soap and water for at least 20 seconds before and after you change your bandage (dressing). If soap and water are not available, use hand wastewater plant operator. Change your dressing as told by your health care provider. If your dressing becomes wet or dirty, or develops a bad smell, change it as soon as possible. If your dressing sticks to your skin, pour warm, clean water over it until it loosens and can be removed without pulling apart the wound edges. Pat the area dry with a soft, clean towel. Do not rub the wound because that may cause bleeding. Wound care Check your wound every day for signs of infection. Check for: ?More redness, swelling, or pain. ?Fluid or blood. ?New warmth, a rash, or hardness at the wound site. ? Pus or a bad smell. Wash your hands with soap and water for at least 20 seconds before and after touching your wound. If soap and water are not available, use hand wastewater plant operator. Keep the wound area dry and clean. Clean and pat the wound dry as told by your health care provider. Apply cream or ointment only as told by your health care provider. If skin glue or adhesive strips were applied after sutures were removed, leave these closures in place. They may need to stay in place for 2 weeks or longer. If adhesive strip edges start to loosen and curl up, you may trim the loose edges. Do not remove adhesive strips completely unless your health care provider tells you to do that. Continue to protect the wound from injury. Do not pick at your wound. Picking can cause an infection. Bathing Do not take baths, swim, or use a hot tub until your health care provider approves. Ask your healthcare provider if you may take showers. Follow these steps for showering: ?If you have a dressing, remove it before getting into the shower. ?In the shower, allow soapy water to get on the wound. Avoid scrubbing the wound. ?When you get out of the shower, dry the wound by patting it with a clean towel. ?Reapply a dressing over the wound, if needed. Scar care When your wound has completely healed, help decrease the size of your scar by: Wearing sunscreen over the scar or covering it with clothing when you are outside. New scars get sunburned easily, which can make scarring worse. Gently massaging the scarred area. This can decrease scar thickness. General instructions Take jtgc-xww-kcijvab and prescription medicines only as told by your health care provider. Keep all follow-up visits. This is important. Contact a health care provider if: You have more redness, swelling, or pain around your wound. You have fluid or blood coming from your wound. You have new warmth, a rash, or hardness at the wound site. You have pus or a bad smell coming from your wound. Your wound opens up. Get help right away if: You have a fever or chills. You have red streaks coming from your wound. Summary After your sutures are removed, it is common to have some discomfort and swelling in the area. Wash your hands with soap and water before you change your bandage (dressing). Keep the wound area dry and clean. Do not take baths, swim, or use a hot tub until your health careprovider approves. This information is not intended to replace advice given to you by your health care provider. Make sure you discuss any questions you have with your health care provider. Document Revised: 11/11/2021 Document Reviewed: 11/11/2021 [employer] Patient Education 2023 [employer] 08/16/2024 13:23:29 Suprapubic Catheter Home Guide Suprapubic Catheter Home Guide A suprapubic catheter is a soft tube that is used to drain pee (urine) from the bladder into a collection bag outside the body. The catheter is inserted into the bladder through a small opening in the lower abdomen, above the pubic bone (suprapubic area) and a few inches below your belly button. A tiny balloon filled with germ-free (sterile) water helps to keep the catheter in place. The collection bag must be emptied at least once a day and cleaned at least every other day. The collection bag can be put beside your bed at night and attached to your leg during the day. You may have a large collection bag to use at night and a smaller one to use during the day. Your suprapubic catheter may need to be changed every 4 6 weeks, or as told by your health care provider. Healing of the tract where the catheter is placed can take 6 weeks to 6 months. During that time, your provider may change your catheter. Once the tract is well healed, you or a caregiver will change your suprapubic catheter at home. What are the risks? Your provider will talk with you about risks. These may include: Blocked pee flow. This can occur if the catheter stops working, or if you have a blood clot in yourbladder or in the catheter. Irritation of the skin around the catheter. Infection. Supplies needed: Two pairs of sterile gloves. Paper towels. Catheter. Two syringes. Sterile water. Sterile cleaning solution. Lubricant. Collection bags. How to change the catheter 1.Drink plenty of fluids during the hours before you change the catheter. 2.Wash your hands with soap and water for at least 20 seconds. If soap and water are not available,use hand wastewater plant operator. 3.Draw up sterile water into a syringe to have ready to fill the new catheter balloon. The amount will depend on the size of the balloon. 4.Have all of your supplies ready and close to you on a paper towel. 5.Lie on your back, sitting slightly upright so that you can see the catheter and opening. 6.Put on sterile gloves. 7.Clean the skin around the catheter opening using the sterile cleaning solution. 8.Remove the water from the balloon in the catheter using a syringe. 9.Slowly remove the catheter. If the catheter seems stuck, or if you have difficulty removing it: Do not pull on it. Call your provider right away. 10.Place the old catheter on a paper towel to discard later. 11.Take off the used gloves, and put on a new pair. 12.Put lubricant on the end of the new catheter that will go into your bladder. 13.Clean the skin around the catheter opening using the sterile cleaning solution. 14.Gently slide the catheter through the opening in your abdomen and into the tract that leads to your bladder. 15.Wait for some pee to start flowing through the catheter. 16.Use a syringe to fill the catheter balloon with sterile water. Fill to the amount directed by your provider. 17.Attach the collection bag to the end of the catheter. Make sure the connection is tight. 18.Remove the gloves and wash your hands with soap and water. How to care for the skin around the catheter Follow your provider's instructions on how to care for your skin. Use a clean washcloth and soapy water to clean the skin around your catheter every day. Pat the area dry with a clean paper towel. Do not pull on the catheter. Do not use ointment or lotion on this area, unless told by your provider. Check the skin around the catheter every day for signs of infection. Check for: ?Redness, swelling, or pain. ?Fluid or blood. ?Warmth. ?Pus or a bad smell. How to empty and clean the collection bag Empty the large collection bag every 8 hours. Empty the small collection bag when it is about ? full. Clean the collection bag every 2 3 days, or as often as told by your provider. To do this: 1.Wash your hands with soap and water for at least 20 seconds. If soap and water are not available,use hand wastewater plant operator. 2.Disconnect the bag from the catheter and immediately attach a new bag to the catheter. 3.Hold the used bag over the toilet or another container. 4.Turn the valve (spigot) at the bottom of the bag to empty the pee. Empty the used bag completely. Do not touch the opening of the spigot. Do not let the opening touch the toilet or container. 5.Close the spigot tightly when the bag is empty. 6.Clean the used bag in one of the following guides: According to the blow off worker's instructions. As told by your provider. 7.Let the bag dry completely. Put it in a clean plastic bag before storing it. General tips Always wash your hands for at least 20 seconds before and after caring for your catheter and collection bag. Use a mild, fragrance-free soap. If soap and water are not available, use hand wastewater plant operator. Clean the outside of the catheter with soap and water as often as told by your provider. Always make sure there are no twists or kinks in the catheter tube. Always make sure there are no leaks in the catheter or collection bag. Always wear the leg bag below your knee. Make sure the overnight drainage bag is always lower than the level of your bladder. Do not let it touch the floor. Before you go to sleep, hang the bag inside a wastebasket that is covered by a clean plastic bag. Drink enough fluid to keep your pee pale yellow. Do not take baths, swim, or use a hot tub until your provider approves. Ask your provider if you may take showers. Contact a kenyatta care provider if: You have any signs of infection around your catheter. You have a fever or chills. There is a change in the color or smell of your pee. You have vomiting that does not stop. You have back pain. You have blood in your pee. Also, seek care if: ?You have a hard time changing your catheter. ?You leak pee around your catheter. ?Your pee flow slows down. Get help right away if: Your catheter comes out and you are unable to insert a new one. You have no pee flow for 1 hour. This information is not intended to replace advice given to you by your health care provider. Make sure you discuss any questions you have with your health care provider. Document Revised: 03/15/2023 Document Reviewed: 03/15/2023 [employer] Patient Education 2023 [employer]. Follow Up Care 06/01/2024 13:39:53 With:JERRELL EVANS, Tammy Burk, URL Address: [facility] [address], [place] [address]- When: Unknown [facility] 01-15-2025 NotePatient Education Dermatology Suture Removal, Care After The following information offers guidance on how to care for yourself after your procedure. Your health care provider may also give you more specific instructions. If you have problems or questions, contact your health care provider. What can I expect after the procedure? After your stitches (sutures) are removed, it is common to have: ??? Some discomfort and swelling in the area. ??? Slight redness in the area. Follow these instructions at home: If you have a dressing: ??? Wash your hands with soap and water for at least 20 seconds before and after you change your bandage (dressing). If soap and water are not available, use hand wastewater plant operator. ??? Change your dressing as told by your health care provider. If your dressing becomes wet or dirty, or develops a bad smell, change it as soon as possible. ??? If your dressing sticks to your skin, pour warm, clean water over it until it loosens and can be removed without pulling apart the wound edges. Pat the area dry with a soft, clean towel. Do not rub the wound because that may cause bleeding. Wound care ??? Check your wound every day for signs of infection. Check for: ? More redness, swelling, or pain. ? Fluid or blood. ? New warmth, a rash, or hardness at the wound site. ? Pus or a bad smell. ??? Wash your hands with soap and water for at least 20 seconds before and after touching your wound. If soap and water are not available, use hand wastewater plant operator. ??? Keep the wound area dry and clean. Clean and pat the wound dry as told by your health care provider. ??? Apply cream or ointment only as told by your health care provider. ??? If skin glue or adhesive strips were applied after sutures were removed, leave these closures in place. They may need to stay in place for 2 weeks or longer. If adhesive strip edges start to loosen and curl up, you may trim the loose edges. Do not remove adhesive strips completely unless your health care provider tells you to do that. ??? Continue to protect the wound from injury. ??? Do not pick at your wound. Picking can cause an infection. Bathing ??? Do not take baths, swim, or use a hot tub until your health care provider approves. Ask your health care provider if you may take showers. ??? Follow these steps for showering: ? If you have a dressing, remove it before getting into the shower. ? In the shower, allow soapy water to get on the wound. Avoid scrubbing the wound. ? When you get out of the shower, dry the wound by patting it with a clean towel. ? Reapply a dressing over the wound, if needed. Scar care When your wound has completely healed, help decrease the size of your scar by: ??? Wearing sunscreen over the scar or covering it with clothing when you are outside. New scars get sunburned easily, which can make scarring worse. ??? Gently massaging the scarred area. This can decrease scar thickness. General instructions ??? Take [id number] and prescription medicines only as told by your health care provider. ??? Keep all follow-up visits. This is important. Contact a health care provider if: ??? You have more redness, swelling, or pain around your wound. ??? You have fluid or blood coming from your wound. ??? You have new warmth, a rash, or hardness at the wound site. ??? You have pus or a bad smell coming from your wound. ??? Your wound opens up. Get help right away if: ??? You have a fever or chills. ??? You have red streaks coming from your wound. Summary ??? After your sutures are removed, it is common to have some discomfort and swelling in the area. ??? Wash your hands with soap and water before you change your bandage (dressing). ??? Keep the wound area dry and clean. Do not take baths, swim, or use a hot tub until your health care provider approves. This information is not intended to replace advice given to you by your health care provider. Make sure you discuss any questions you have with your health care provider. Document Revised: 11/11/2021 Document Reviewed: 11/11/2021 [employer] Patient Education ? 2023 [employer]. Urology Suprapubic Catheter Home Guide A suprapubic catheter is a soft tube that is used to drain pee (urine) from the bladder into a collection bag outside the body. The catheter is inserted into the bladder through a small opening in the lower abdomen, above the pubic bone (suprapubic area) and a few inches below your belly button. A tiny balloon filled with germ-free (sterile) water helps to keep the catheter in place. The collection bag must be emptied at least once a day and cleaned at least every other day. The collection bag can be put beside your bed at night and attached to your leg during the day. You may have a large collection bag to use at night and a smaller one to use during the day. Your suprapubic catheter may need to be changed every 4?6 weeks, or as told by your health care p (more content not included)...[facility] 05-23-2024 Discharge summary Author Yuriy Triana [facility] May 23, 2024 12:32pm Note Date/Time May 23, 2024 1 2:24pm [facility] [address] [place] [address] Discharge Summary Signed Patient: Alessandra Hardy MR#: [id number] : 1960 Acct:[id number] Age/Sex: 64 / F Adm Date: 4 Loc: Room: [address] [place] [address]: Yuriy Triana MD Copies to: MD Neva Joya,DO~ Providers Date of Discharge: 05/23/24 Discharging Provider: Yuriy Triana Primary Care Provider: Neva Miller Consults: 05/18/24 22:45 Consult to Sleep Lab Routine Comment: Physician Instructions: 05/19/24 10:21 Consult to Infectious Diseases Routine Comment: Consulting Provider: Americo Maldonado Reason For Exam: Severe sepsis with UTI and gram -ve bacteremia Has Provider Been Notified: Yes Date of Notification: 05/19/24 Time of Notification: 10:28 Discharge Diagnosis (1) Pyelonephritis: (2) Sepsis: (3) Urinary tract infection: (4) Bacteremia: (5) Bacteremia due to Gram-negative bacteria: (6) Multiple sclerosis: Final Diagnosis Final Discharge Diagnosis: As above Summary Hospital Course Hospital course: Ms. Hardy is a 64yo F with PMH of seizure disorder, TIA, spastic bladder with chronic Poole catheter, multiple sclerosis who presented to the emergency department with hypotension, fever, nausea vomiting and lower abdominal pain. Patient had ORVILLE as well with creatinine of 2.43 from a normal baseline. Blood culture positive for ESBL E. coli and Klebsiella. Urine culture also growing Klebsiella. Patient was planned for suprapubic catheter placement on 05/29/2024. Antibiotics adjusted per infectious diseases team to IV meropenem. She will be treated for pyelonephritis and will complete a course of 2 weeks of IV meropenem. Patient evaluated by physical and Occupational Therapy and will be discharged to SNF who will continue IV antibiotic course. Renal function returned to baseline. Urology team was notified of patient's infection prior todischarge and may adjust the timing of suprapubic catheter placement. 35 minutes spent coordinating the discharge of this patient Time Spent with Patient Time spent providing/coordinating discharge services (# min): 35 Discharge Plan Discharge Plan Patient Disposition: Home Instructions: Know your Meds Prescriptions: New ertapenem 1 gram Recon Soln 1 g IV Q24H 14 Days Qty: 14 0RF Continued acetaminophen 325 mg capsule 650 mg PO Q6HR PRN (Reason: pain) omeprazole 20 mg capsule,delayed release(DR/EC) 20 mg PO QAM zoledronic [id number] [Reclast] 5 mg/100 mL piggyback IV QYEAR famotidine [Acid-Pep] 20 mg tablet 20 mg PO DAILY nortriptyline 10 mg capsule 20 mg PO QHS fludrocortisone 0.1 mg Tablet 0.05 mg PO QAM lamotrigine 100 mg tablet 100 mg PO BID cholecalciferol (vitamin D3) [Vitamin D3] 25 mcg (1,000 unit) Tablet 75 mcg PO QAM magnesium hydroxide [Milk of Magnesia] 400 mg/5 mL Suspension 2,400 mg PO DAILY PRN (Reason: constipation) bisacodyl 10 mg Suppository 10 mg PA DAILY PRN (Reason: constipation) menthol 3.2 mg Lozenge 3.2 mg PO DIRECTED fluoxetine [Prozac] 10 mg Capsule 10 mg PO QAM Exam Physical Exam Vital Signs: Temp Pulse Resp BP Pulse Ox O2 Del Method O2 Flow Rate 97.9 F 89 20 124/80 96 Nasal Cannula 1 05/23/24 11:25 05/23/24 11:25 05/23/24 11:25 05/23/24 11:25 05/23/24 11:05/23/24 11:05/23/24 11:25 Narrative: Constitutional: Middle-aged WF, resting in bed HEENT: Moist mucous membranes, neck supple Cardiovascular: RRR, no M/R/G, normal S1 and S2, no JVD Respiratory: Lungs clear to auscultation bilaterally, no wheezes, rales or rhonchi GI: Soft, NTND, normoactive bowel sounds : Deferred Neuro: AAO x3, somewhat mumbled speech. Strength is 5/5 in bilateral upper extremities. Extremities: No clubbing, cyanosis or edema Psych: Patient calm, cooperative and conversant Diagnostic Studies Completed and Pending Studies Pending studies at discharge: 05/19/24 10:43 Blood Culture Routine Preliminary micro results at discharge 05/19/24 10:43 Blood Culture - Preliminary Blood - Right Antecubital Klebsiella oxytoca 05/19/24 10:45 Blood Culture - Preliminary Blood - Right Hand Gram Negative Bacilli Labs on day of discharge: 05/23/24 04:38: Corrected WBC 9.5, Uncorrected WBC Count 9.5, RBC 4.11, Hgb 12.6, Hct 37.1, MCV 90.3, MCH 30.7, MCHC 34.0, RDW 14.3, Plt Count 125 L D, MPV 8.3, Neut % (Auto) 68.6, Lymph % (Auto) 15.6, [place] % (Auto) 11.9, Eos % (Auto) 3.6, Baso % (Auto) 0.3, Nucleat RBC Rel Count 0.0, Neut # (Auto) 6.5, Lymph # (Auto) 1.5, [place] # (Auto) 1.1 H, Eos # (Auto) 0.3, Baso # (Auto) 0.0, Platelet Estimate Decreased, Plt Morphology Comment Normal, RBC Morphology Normal, PHA Creatinine Clear 92.83, Sodium 137, Potassium 3.6, Chloride 101, Carbon Dioxide 28.2, Anion Gap 11.4, BUN 22, Creatinine 0.81, Est GFR (CKD-EPI) > 60.0, Glucose 122 H, Calcium 8.8, Magnesium 1.5 L Documented By: Yuriy Trinaa MD 4 1216 Signed By: <Electronically signed by Yuriy Traina MD> 05/23/24 1232 [facility] Work Phone: 1(262) 920-330910-22-2024 Progress note Author Americo Maldonado [facility] May 23, 2024 8:21am Note Date/Time May 23, 2024 8 :21am [facility] [address] [place] [address] Infect. Disease Progress Note Signed Patient: Alessandra Hardy MR#: [id number] : 1960 Acct:[id number] Age/Sex: 64 / F Adm Date: 4 Loc: Room: [address] [place] [address] Type: ADM IN Attending Dr: Yuriy Triana MD Copies to: ~ Date of Service: 05/23/2024 Subjective Interval history: Patient is doing well this morning. Did get her PICC line. Offers no new physical complaint Exam Physical Exam Vital Signs: Vital Signs Temp Pulse Resp BP Pulse Ox O2 Del Method O2 Flow Rate 05/23/24 04:00 98.0 F 18 114/73 96 Nasal Cannula 2 05/23/24 00:00 98.7 F 106 H 137/86 95 Nasal Cannula 05/22/24 23:31 Nasal Cannula 2 05/22/24 20:00 Nasal Cannula 2 05/22/24 20:00 99.0 F 108 H 20 133/82 97 Nasal Cannula 2 05/22/24 16:00 Nasal Cannula 2 05/22/24 15:53 98.5 F 100 18 144/84 H 97 Nasal Cannula 2 05/22/24 11:34 98.2 F 101 H 18 117/78 97 Nasal Cannula 2 Intake and Output 05/22/24 05/23/24 05/23/24 23:59 07:59 15:59 Intake Total 400 / 400 Output Total 1000 / 1000 Balance -600 / -600 Intake: Oral 400 / 400 Output: Urine Amount (Catheter) 1000 / 1000 Urethral (Poole) 1000 / 1000 Other: # Bowel Movements 0 Weight 236 lb 15.951 oz Date of Last Bowel Movement 05/21/24 Patient Weight 05/23/24 23:59 Weight 236 lb 15.951 oz Const General: comfortable Orientation: oriented x3 HEENT Head: normal to inspection Mouth: oral mucosae normal Eyes General: appearance normal, both eyes and all related structures Neck Neck: normal visual inspection Chest Chest palpation & inspection: normal inspection of the chest Resp Effort & Inspection: normal respiratory effort Auscultation: clear to auscultation bilaterally Cardio Palpation: normal PMI Rate: regular rate Rhythm: regular rhythm GI Inspection: normal to inspection Palpation: soft and nontender Auscultation: normal bowel sounds Skin General: no rashes or lesions noted Neuro General: patient oriented x3 Extrem General: normal to inspection Objective Labs CBC/BMP: CBC, BMP 05/23/24 04:38 Corrected WBC 9.5 Uncorrected WBC Count 9.5 RBC 4.11 Hgb 12.6 Hct 37.1 Plt Count 125 L D Sodium 137 Potassium 3.6 Chloride 101 Carbon Dioxide 28.2 Anion Gap 11.4 BUN 22 Creatinine 0.81 Calcium 8.8 Labs: 05/23/24 04:38 BUN 22 Creatinine 0.81 Microbiology Microbiology: Microbiology - Results from entire visit 05/19/24 10:45 Blood - Right Hand Blood Culture - Preliminary Gram Negative Bacilli 05/18/24 17:48 Blood - Left Hand Blood Culture - Final Klebsiella oxytoca Escherichia coli (ESBL) 05/19/24 10:43 Blood - Right Antecubital Blood Culture - Preliminary Klebsiella oxytoca 05/18/24 17:07 Blood - Left Antecubital Blood Culture - Final Klebsiella oxytoca Escherichia coli (ESBL) 05/18/24 17:07 Blood - Left Antecubital Bacterial ID (NA Multiplex Assay) - Final 05/18/24 18:09 Clean Void Midstream Urine Culture - Final Klebsiella oxytoca (ESBL) 05/18/24 17:09 Nasopharyngeal SARS-CoV-2, Influenza & RSV (PCR) - Final Allergies and Medications Allergies and Active Meds Allergies aspirin Allergy (Unknown, Verified 05/18/24 16:59) Unknown Reaction silicone Allergy (Unknown, Verified 05/18/24 16:59) Rash adhesive tape Allergy (Verified 05/18/24 16:59) Rash Active Medications Acetaminophen (Acetaminophen 500 Mg Tablet) 1,000 mg PO Q6HR PRN PRN Reason: Pain Scale 1 - 3 or fever Stop: 05/18/25 21:11 Last Admin: 05/23/24 00:27 Dose: 1,000 mg Bisacodyl (Bisacodyl 10 Mg Supp.Rect) 10 mg PA DAILY PRN PRN Reason: constipation Stop: 05/18/25 21:15 Famotidine (Famotidine 20 Mg Tablet) 20 mg PO DAILY [facility] Stop: 05/19/25 08:59 Last Admin: 05/23/24 08:12 Dose: 20 mg Fludrocortisone Acetate (Fludrocortisone Acetate 0.1 Mg Tablet) 0.05 mg PO QAM [facility] Stop: 05/19/25 08:59 Last Admin: 05/23/24 08:12 Dose: 0.05 mg Fluoxetine HCl (Fluoxetine 10 Mg Capsule) 10 mg PO QAM [facility] Stop: 05/19/25 08:59 Last Admin: 05/23/24 08:12 Dose: 10 mg Heparin Sodium (Porcine) (Heparin 5,000 Unit/Ml Vial) 5,000 unit SUBCUT Q12HR [facility] Stop: 05/19/25 08:59 Last Admin: 05/23/24 08:12 Dose: 5,000 unit Ertapenem (Invanz) 1 gm in 100 mls @ 200 mls/hr IV Q24H [facility] Last Admin: 05/22/24 14:12 Dose: 200 mls/hr Magnesium Sulfate (Magnesium Sulf 2gm-*Swfi*) 2 gm in 50 mls @ 25 mls/hr IV DAILY PRN PRN Reason: Hypomagnesemia Stop: 05/23/25 05:54 Last Admin: 05/23/24 06:05 Dose: 25 mls/hr Lamotrigine (Lamotrigine 100 Mg Tablet) 100 mg PO BID [facility] Stop: 05/18/25 21:19 Last Admin: 05/23/24 08:12 Dose: 100 mg Magnesium Hydroxide (Magnesium Hydroxide Susp 30 Ml Udc) 30 ml PO DAILY PRN PRN Reason: constipation Stop: 05/18/25 21:15 Nortriptyline HCl (Nortriptyline 10 Mg Capsule) 20 mg PO QHS TRAVON Stop: 05/18/25 21:59 Last Admin: 05/22/24 21:13 Dose: 20 mg Ondansetron HCl (Ondansetron 4 Mg/2 Ml Vial) 4 mg IV-PUSH Q6H PRN PRN Reason: Nausea And Vomiting Stop: 05/18/25 21:11 Sodium Chloride (Sodium Chloride 0.9 % 10 Ml Syringe) 0 ml IV-PUSH PRN PRN PRN Reason: Flush Stop: 05/18/25 16:54 Last Admin: 05/18/24 19:18 Dose: 10 ml Sodium Chloride (Sodium Chloride 0.9 % 10 Ml Syringe) 0 ml IV-PUSH QSHIFT TRAVON Stop: 05/18/25 21:59 Last Admin: 05/23/24 04:45 Dose: 10 ml Sodium Chloride (Sodium Chloride 0.9 % 10 Ml Syringe) 0 ml IV-PUSH PRN PRN PRN Reason: Flush Stop: 05/22/25 09:15 Last Admin: 05/23/24 06:06 Dose: 10 ml A&P - Infectious Disease Assessment/Plan (1) Pyelonephritis: (2) Sepsis: (3) Urinary tract infection: (4) Bacteremia: Plan Transition to ertapenem. PICC line placed for outpatient IV antibiotics to finish out 2-week course Documented By: Americo Maldonado MD 05/23/24818 Signed By: <Electronically signed by MD Americo Maldonado> 05/23/24820 [facility] Work Phone: 1(129) 644-343610-21-2024 Progress note Author Yuriy Triana [facility] May 22, 2024 6:16pm Note Date/Time May 22, 2024 6 :06pm [facility] [address] [place] [address] Hospitalist Progress Note Signed Patient: Alessandra Hardy MR#: [id number] : 1960 Acct:[id number] Age/Sex: 64 / F Adm Date: 4 Loc: Room: [address] [place] [address] Type: ADM IN Attending Dr: Yuriy Triana MD Copies to: ~ Date of Service: 05/22/2024 Subjective Subjective Narrative: No acute events noted overnight. Patient remains afebrile hemodynamically stable. She is still breathing comfortably on 2 L nasal cannula oxygen. Exam Physical Exam Vital Signs: Temp Pulse Resp BP Pulse Ox O2 Del Method O2 Flow Rate 98.5 F 100 18 144/84 H 97 Nasal Cannula 2 05/22/24 15:53 05/22/24 15:53 05/22/24 15:53 05/22/24 15:53 05/22/24 15:53 05/22/24 16:00 05/22/24 16:00 Narrative: Constitutional: Middle-aged WF, resting in bed HEENT: Moist mucous membranes, neck supple Cardiovascular: RRR, no M/R/G, normal S1 and S2, no JVD Respiratory: Lungs clear to auscultation bilaterally, no wheezes, rales or rhonchi GI: Soft, NTND, normoactive bowel sounds : Deferred Neuro: AAO x3, somewhat mumbled speech. Strength is 5/5 in bilateral upper extremities. Extremities: No clubbing, cyanosis or edema Psych: Patient calm, cooperative and conversant Objective Lab Results 05/22/24 04:36 05/22/24 04:36 Microbiology Results Microbiology 05/19/24 10:45 Blood - Right Hand Blood Culture - Preliminary No Growth 3 Days 05/18/24 17:48 Blood - Left Hand Blood Culture - Final Klebsiella oxytoca Escherichia coli (ESBL) 05/19/24 10:43 Blood - Right Antecubital Blood Culture - Preliminary Klebsiella oxytoca 05/18/24 17:07 Blood - Left Antecubital Blood Culture - Final Klebsiella oxytoca Escherichia coli (ESBL) 05/18/24 17:07 Blood - Left Antecubital Bacterial ID (NA Multiplex Assay) - Final Meds Allergies and Active Meds Allergies aspirin Allergy (Unknown, Verified 05/18/24 16:59) Unknown Reaction silicone Allergy (Unknown, Verified 05/18/24 16:59) Rash adhesive tape Allergy (Verified 05/18/24 16:59) Rash Active Meds: Active Medications Generic Name Dose Route Start Last Admin Trade Name Freq PRN Reason Stop Dose Admin Acetaminophen 1,000 mg 05/18/24 21:12 05/22/24 17:47 Acetaminophen 500 Mg Tablet PO 05/18/25 21:11 1,000 mg Q6HR PRN Administration Pain Scale 1 - 3 or fever Bisacodyl 10 mg 05/18/24 21:16 Bisacodyl 10 Mg Supp.Rect PA 05/18/25 21:15 DAILY PRN constipation Famotidine 20 mg 05/19/24 09:00 05/22/24 08:21 Famotidine 20 Mg Tablet PO 05/19/25 08:59 20 mg DAILY TRAVON Administration Fludrocortisone Acetate 0.05 mg 05/19/24 09:00 05/22/24 08:21 Fludrocortisone Acetate 0.1 Mg Tablet PO 05/19/25 08:59 0.05 mg QAM TRAVON Administration Fluoxetine HCl 10 mg 05/19/24 09:00 05/22/24 08:21 Fluoxetine 10 Mg Capsule PO 05/19/25 08:59 10 mg QAM TRAVON Administration Heparin Sodium (Porcine) 5,000 unit 05/19/24 09:00 05/22/24 08:22 Heparin 5,000 Unit/Ml Vial SUBCUT 05/19/25 08:59 Not Given Q12HR [facility] Ertapenem 1 gm in 100 mls @ 200 mls/hr 05/22/24 14:00 05/22/24 14:12 Invanz IV 200 mls/hr Q24H TRAVON Administration Lamotrigine 100 mg 05/18/24 21:20 05/22/24 08:21 Lamotrigine 100 Mg Tablet PO 05/18/25 21:19 100 mg BID TRAVON Administration Magnesium Hydroxide 30 ml 05/18/24 21:16 Magnesium Hydroxide Susp 30 Ml Udc PO 05/18/25 21:15 DAILY PRN constipation Nortriptyline HCl 20 mg 05/18/24 22:00 05/21/24 21:24 Nortriptyline 10 Mg Capsule PO 05/18/25 21:59 20 mg QHS TRAVON Administration Ondansetron HCl 4 mg 05/18/24 21:12 Ondansetron 4 Mg/2 Ml Vial IV-PUSH 05/18/25 21:11 Q6H PRN Nausea And Vomiting Sodium Chloride 0 ml 05/18/24 16:55 05/18/24 19:18 Sodium Chloride 0.9 % 10 Ml Syringe IV-PUSH 05/18/25 16:54 10 ml PRN PRN Administration Flush Sodium Chloride 0 ml 05/18/24 22:00 05/22/24 14:12 Sodium Chloride 0.9 % 10 Ml Syringe IV-PUSH 05/18/25 21:59 10 ml QSHIFT TRAVON Administration Sodium Chloride 0 ml 05/22/24 09:16 Sodium Chloride 0.9 % 10 Ml Syringe IV-PUSH 05/22/25 09:15 PRN PRN Flush A&P - Hospitalist Assessment/Plan (1) Severe sepsis: (2) Urinary tract infection: (3) Pyelonephritis: (4) ORVILLE (acute kidney injury): (5) Bacteremia due to Gram-negative bacteria: Plan Severe Sepsis Gram negative Bacteremia due to ESBL E. Coli UTI Pyelonephritis ORVILLE Sepsis parameters improved. Patient is planned on discharge to [facility] likely tomorrow. She remains afebrile and hemodynamically stable. Plan for outpatientsuprapubic catheter placement. Currently has chronic Poole catheter ?Monitor renal function daily -Follow-up on cultures adjusted about accordingly -Continue IV meropenem -Hold on further IV fluid therapy Chronic Conditions: Seizure disorder?lamotrigine GERD?famotidine Depression?fluoxetine, nortriptyline DVT PPx?SCDs, heparin Diet order?regular CODE STATUS?DNR CCA with intubation Documented By: Yuriy Triana MD 4 1800 Signed By: <Electronically signed by Yuriy Triana MD> 05/22/24 1816 [facility] Work Phone: 1(679) 184-817810-21-2024 Progress note Author Americo Maldonado [facility] May 22, 2024 9:16am Note Date/Time May 22, 2024 9 :16am [facility] [address] [place] [address] Infect. Disease Progress Note Signed Patient: Alessandra Hardy MR#: [id number] : 1960 Acct:[id number] Age/Sex: 64 / F Adm Date: 4 Loc: 4 Room: [address] [place] [address] Type: ADM IN Attending Dr: Luis Santoro MD Copies to: ~ Date of Service: 05/22/2024 Subjective Interval history: In the hospital on IV meropenem. Offers no new complaints with regard to her urinary tract infection with bacteremia. Patient scheduled to have a suprapubicplaced May [address] Allan. Exam Physical Exam Vital Signs: Temp Pulse Resp BP Pulse Ox O2 Del Method O2 Flow Rate 98.2 F 94 18 113/77 93 L Nasal Cannula 2 05/22/24 04:00 05/22/24 04:00 05/22/24 04:00 05/22/24 04:00 05/22/24 04:00 05/22/24 04:00 05/22/24 04:00 Const General: comfortable Orientation: oriented x3 HEENT Head: normal to inspection Mouth: oral mucosae normal Eyes General: appearance normal, both eyes and all related structures Neck Neck: normal visual inspection Chest Chest palpation & inspection: normal inspection of the chest Resp Effort & Inspection: normal respiratory effort Auscultation: clear to auscultation bilaterally Cardio Palpation: normal PMI Rate: regular rate Rhythm: regular rhythm GI Inspection: normal to inspection Palpation: soft and nontender Auscultation: normal bowel sounds Skin General: no rashes or lesions noted Neuro General: patient oriented x3 Extrem General: normal to inspection Objective Labs CBC/BMP: CBC, BMP 05/21/24 05/22/24 04:49 04:36 Corrected WBC 9.3 7.6 Uncorrected WBC Count 9.3 7.6 RBC 3.84 3.87 Hgb 11.7 L 12.0 Hct 34.6 35.0 Plt Count 90 L 96 L Sodium 137 Potassium 3.4 L Chloride 103 Carbon Dioxide 28.1 Anion Gap 9.3 BUN 22 Creatinine 0.89 Calcium 8.9 Labs: 05/22/24 04:36 BUN 22 Creatinine 0.89 Microbiology Microbiology: Microbiology - Results from entire visit 05/18/24 17:48 Blood - Left Hand Blood Culture - Final Klebsiella oxytoca Escherichia coli (ESBL) 05/19/24 10:43 Blood - Right Antecubital Blood Culture - Preliminary Klebsiella oxytoca 05/18/24 17:07 Blood - Left Antecubital Blood Culture - Final Klebsiella oxytoca Escherichia coli (ESBL) 05/18/24 17:07 Blood - Left Antecubital Bacterial ID (NA Multiplex Assay) - Final 05/19/24 10:45 Blood - Right Hand Blood Culture - Preliminary No Growth 2 Days 05/18/24 18:09 Clean Void Midstream Urine Culture - Final Klebsiella oxytoca (ESBL) 05/18/24 17:09 Nasopharyngeal SARS-CoV-2, Influenza & RSV (PCR) - Final Allergies and Medications Allergies and Active Meds Allergies aspirin Allergy (Unknown, Verified 05/18/24 16:59) Unknown Reaction silicone Allergy (Unknown, Verified 05/18/24 16:59) Rash adhesive tape Allergy (Verified 05/18/24 16:59) Rash Active Medications Acetaminophen (Acetaminophen 500 Mg Tablet) 1,000 mg PO Q6HR PRN PRN Reason: Pain Scale 1 - 3 or fever Stop: 05/18/25 21:11 Last Admin: 05/21/24 21:24 Dose: 1,000 mg Bisacodyl (Bisacodyl 10 Mg Supp.Rect) 10 mg PA DAILY PRN PRN Reason: constipation Stop: 05/18/25 21:15 Famotidine (Famotidine 20 Mg Tablet) 20 mg PO DAILY [facility] Stop: 05/19/25 08:59 Last Admin: 05/22/24 08:21 Dose: 20 mg Fludrocortisone Acetate (Fludrocortisone Acetate 0.1 Mg Tablet) 0.05 mg PO QAM [facility] Stop: 05/19/25 08:59 Last Admin: 05/22/24 08:21 Dose: 0.05 mg Fluoxetine HCl (Fluoxetine 10 Mg Capsule) 10 mg PO QAM [facility] Stop: 05/19/25 08:59 Last Admin: 05/22/24 08:21 Dose: 10 mg Heparin Sodium (Porcine) (Heparin 5,000 Unit/Ml Vial) 5,000 unit SUBCUT Q12HR [facility] Stop: 05/19/25 08:59 Last Admin: 05/22/24 08:22 Dose: Not Given Meropenem (Merrem) 1 gm in 100 mls @ 33.333 mls/hr IV Q8H [facility] Last Admin: 05/22/24 05:04 Dose: 33.33 mls/hr Lamotrigine (Lamotrigine 100 Mg Tablet) 100 mg PO BID [facility] Stop: 05/18/25 21:19 Last Admin: 05/22/24 08:21 Dose: 100 mg Magnesium Hydroxide (Magnesium Hydroxide Susp 30 Ml Udc) 30 ml PO DAILY PRN PRN Reason: constipation Stop: 05/18/25 21:15 Nortriptyline HCl (Nortriptyline 10 Mg Capsule) 20 mg PO QHS [facility] Stop: 05/18/25 21:59 Last Admin: 05/21/24 21:24 Dose: 20 mg Ondansetron HCl (Ondansetron 4 Mg/2 Ml Vial) 4 mg IV-PUSH Q6H PRN PRN Reason: Nausea And Vomiting Stop: 05/18/25 21:11 Sodium Chloride (Sodium Chloride 0.9 % 10 Ml Syringe) 0 ml IV-PUSH PRN PRN PRN Reason: Flush Stop: 05/18/25 16:54 Last Admin: 05/18/24 19:18 Dose: 10 ml Sodium Chloride (Sodium Chloride 0.9 % 10 Ml Syringe) 0 ml IV-PUSH QSHIFT [facility] Stop: 05/18/25 21:59 Last Admin: 05/22/24 06:43 Dose: Not Given A&P - Infectious Disease Assessment/Plan (1) Pyelonephritis: (2) Sepsis: (3) Urinary tract infection: (4) Bacteremia: Plan With PICC line placed. Transition meropenem to ertapenem. Finish 2 weeks of treatment. Documented By: Americo Maldonado MD 05/22/24914 Signed By: <Electronically signed by MD Americo Maldonado> 05/22/24915 [facility] Work Phone: 1(337) 580-587210-20-2024 Progress note Author Luis Santoro [facility] May 21, 2024 5:36pm Note Date/Time May 21, 2024 2 :14pm [facility] [address] [place] [address] Hospitalist Progress Note Signed Patient: Alessandra Hardy MR#: [id number] : 1960 Acct:[id number] Age/Sex: 64 / F Adm Date: 4 Loc: 4 Room: [address] [place] [address] Type: ADM IN Attending Dr: Luis Santoro MD Copies to: ~ Date of Service: 05/21/2024 Subjective Subjective Narrative: Pt seen and examined at bedside. No events overnight. Patient is not in acute distress. Exam Physical Exam Vital Signs: Temp Pulse Resp BP Pulse Ox O2 Del Method O2 Flow Rate 97.8 F 98 18 129/76 97 Nasal Cannula 2 05/21/24 11:00 05/21/24 11:00 05/21/24 11:00 05/21/24 11:00 05/21/24 11:00 05/21/24 12:27 05/21/24 12:27 Narrative: CONST- Appears well -developed and well nourished, ill appearing. Morbidly obese HEAD - Normocephalic and atraumatic EENT-Sclera nonicteric, conjunctive are non-erythemic, moist oral mucosa, pharynx clear NECK-Supple, no cervical lymphadenopathy CARDIAC-tachycardic, regular rhythm, S1 & S2. PULM-diminished without wheeze or rhonchi, RA, no accessory muscle use or cough noted ABD - Soft. Bowel sounds are normal. Softly distended. No tenderness, negativeCVA tenderness - Poole, cloudy turbid urine EXTREM-no edema BLE calves, nontender SKIN- W/D good turgor, chronic discoloration to RLE NEURO- A&Ox3 speech clear and tongue midline, equal facial symmetry, no focal motor deficits Objective Lab Results 05/21/24 04:49 05/21/24 04:49 Microbiology Results Microbiology 05/19/24 10:43 Blood - Right Antecubital Blood Culture - Preliminary No Growth 2 Days 05/19/24 10:45 Blood - Right Hand Blood Culture - Preliminary No Growth 2 Days 05/18/24 18:09 Clean Void Midstream Urine Culture - Final Klebsiella oxytoca (ESBL) 05/18/24 17:48 Blood - Left Hand Blood Culture - Preliminary Klebsiella oxytoca Escherichia coli (ESBL) 05/18/24 17:07 Blood - Left Antecubital Blood Culture - Preliminary Klebsiella oxytoca Escherichia coli (ESBL) 05/18/24 17:07 Blood - Left Antecubital Bacterial ID (NA Multiplex Assay) - Final Meds Allergies and Active Meds Allergies aspirin Allergy (Unknown, Verified 05/18/24 16:59) Unknown Reaction silicone Allergy (Unknown, Verified 05/18/24 16:59) Rash adhesive tape Allergy (Verified 05/18/24 16:59) Rash Active Meds: Active Medications Generic Name Dose Route Start Last Admin Trade Name Freq PRN Reason Stop Dose Admin Acetaminophen 1,000 mg 05/18/24 21:12 05/21/24 09:25 Acetaminophen 500 Mg Tablet PO 05/18/25 21:11 1,000 mg Q6HR PRN Administration Pain Scale 1 - 3 or fever Bisacodyl 10 mg 05/18/24 21:16 Bisacodyl 10 Mg Supp.Rect PA 05/18/25 21:15 DAILY PRN constipation Famotidine 20 mg 05/19/24 09:00 05/21/24 08:36 Famotidine 20 Mg Tablet PO 05/19/25 08:59 20 mg DAILY [facility] Administration Fludrocortisone Acetate 0.05 mg 05/19/24 09:00 05/21/24 08:36 Fludrocortisone Acetate 0.1 Mg Tablet PO 05/19/25 08:59 0.05 mg QAM [facility] Administration Fluoxetine HCl 10 mg 05/19/24 09:00 05/21/24 08:36 Fluoxetine 10 Mg Capsule PO 05/19/25 08:59 10 mg QAM [facility] Administration Heparin Sodium (Porcine) 5,000 unit 05/19/24 09:00 05/21/24 08:36 Heparin 5,000 Unit/Ml Vial SUBCUT 05/19/25 08:59 5,000 unit Q12HR [facility] Administration Meropenem 1 gm in 100 mls @ 33.333 mls/hr 05/20/24 20:00 05/21/24 11:53 Merrem IV 33.33 mls/hr Q8H [facility] Administration Lamotrigine 100 mg 05/18/24 21:20 05/21/24 08:36 Lamotrigine 100 Mg Tablet PO 05/18/25 21:19 100 mg BID [facility] Administration Magnesium Hydroxide 30 ml 05/18/24 21:16 Magnesium Hydroxide Susp 30 Ml Udc PO 05/18/25 21:15 DAILY PRN constipation Nortriptyline HCl 20 mg 05/18/24 22:00 05/20/24 21:23 Nortriptyline 10 Mg Capsule PO 05/18/25 21:59 20 mg QHS [facility] Administration Ondansetron HCl 4 mg 05/18/24 21:12 Ondansetron 4 Mg/2 Ml Vial IV-PUSH 05/18/25 21:11 Q6H PRN Nausea And Vomiting Sodium Chloride 0 ml 05/18/24 16:55 05/18/24 19:18 Sodium Chloride 0.9 % 10 Ml Syringe IV-PUSH 05/18/25 16:54 10 ml PRN PRN Administration Flush Sodium Chloride 0 ml 05/18/24 22:00 05/21/24 14:07 Sodium Chloride 0.9 % 10 Ml Syringe IV-PUSH 05/18/25 21:59 Not Given QSHIFT [facility] A&P - Hospitalist Assessment/Plan (1) Severe sepsis: (2) Urinary tract infection: (3) Pyelonephritis: (4) [place] (acute kidney injury): (5) Bacteremia due to Gram-negative bacteria: Plan Severe sepsis likely due to pyelonephritis and UTI due to Klebsiella ESBL Gram negative Bacteremia due to ESBL E. Coli UTI?patient has chronic Poole Pyelonephritis [place]?current creatinine 2.43, last creatinine 1 on 05/16/24 -Follow-up on cultures adjusted about accordingly -Continue IV meropenem -Stopped IV fluids as her renal function is back to normal Chronic conditions?resume home meds as appropriate Seizure disorder?lamotrigine GERD?famotidine Depression?fluoxetine, nortriptyline DVT PPx?SCDs, heparin Diet order?regular CODE STATUS?DNR CCA with intubation Time Spent With Patient (min): 45 Documented By: Luis Santoro MD 05/21/24 1410 Signed By: <Electronically signed by Luis Santoro MD> 05/21/24 1736 [facility] Work Phone: [phone] 376-352510-19-2024 Progress note Author Luis Santoro [facility] May 20, 2024 1:48pm Note Date/Time May 20, 2024 1 :48pm [facility] [address] [place] [address] Hospitalist Progress Note Signed Patient: Alessandra Hardy MR#: [id number] : 1960 Acct:[id number] Age/Sex: 64 / F Adm Date: 4 Loc: 4 Room: [address] [place] [address] Type: ADM IN Attending Dr: Luis Santoro MD Copies to: ~ Date of Service: 05/20/2024 Subjective Subjective Narrative: Pt seen and examined at bedside. No events overnight. Patient mental status. Labs were reviewed for today. Exam Physical Exam Vital Signs: Temp Pulse Resp BP Pulse Ox O2 Del Method O2 Flow Rate 97.7 F 116 H 18 108/73 96 Nasal Cannula 2 05/20/24 11:29 05/20/24 11:29 05/20/24 11:29 05/20/24 11:29 05/20/24 11:29 05/20/24 11:29 05/20/24 11:29 Narrative: CONST- Appears well -developed and well nourished, ill appearing. Morbidly obese HEAD - Normocephalic and atraumatic EENT-Sclera nonicteric, conjunctive are non-erythemic, moist oral mucosa, pharynx clear NECK-Supple, no cervical lymphadenopathy CARDIAC-tachycardic, regular rhythm, S1 & S2. PULM-diminished without wheeze or rhonchi, RA, no accessory muscle use or cough noted ABD - Soft. Bowel sounds are normal. Softly distended. No tenderness, negativeCVA tenderness - Poole, cloudy turbid urine EXTREM-no edema BLE calves, nontender SKIN- W/D good turgor, chronic discoloration to RLE NEURO- A&Ox3 speech clear and tongue midline, equal facial symmetry, no focal motor deficits Objective Lab Results 05/20/24 05:01 05/20/24 05:01 Microbiology Results Microbiology 05/19/24 10:43 Blood - Right Antecubital Blood Culture - Preliminary No Growth 1 Day 05/19/24 10:45 Blood - Right Hand Blood Culture - Preliminary No Growth 1 Day 05/18/24 17:48 Blood - Left Hand Blood Culture - Preliminary Klebsiella oxytoca Escherichia coli 05/18/24 17:07 Blood - Left Antecubital Blood Culture - Preliminary Klebsiella oxytoca Escherichia coli 05/18/24 17:07 Blood - Left Antecubital Bacterial ID (NA Multiplex Assay) - Final 05/18/24 18:09 Clean Void Midstream Urine Culture - Preliminary Klebsiella oxytoca Meds Allergies and Active Meds Allergies aspirin Allergy (Unknown, Verified 05/18/24 16:59) Unknown Reaction silicone Allergy (Unknown, Verified 05/18/24 16:59) Rash adhesive tape Allergy (Verified 05/18/24 16:59) Rash Active Meds: Active Medications Generic Name Dose Route Start Last Admin Trade Name Freq PRN Reason Stop Dose Admin Acetaminophen 1,000 mg 05/18/24 21:12 05/20/24 11:32 Acetaminophen 500 Mg Tablet PO 05/18/25 21:11 1,000 mg Q6HR PRN Administration Pain Scale 1 - 3 or fever Bisacodyl 10 mg 05/18/24 21:16 Bisacodyl 10 Mg Supp.Rect PA 05/18/25 21:15 DAILY PRN constipation Famotidine 20 mg 05/19/24 09:00 05/20/24 08:33 Famotidine 20 Mg Tablet PO 05/19/25 08:59 20 mg DAILY [facility] Administration Fludrocortisone Acetate 0.05 mg 05/19/24 09:00 05/20/24 08:32 Fludrocortisone Acetate 0.1 Mg Tablet PO 05/19/25 08:59 0.05 mg QAM [facility] Administration Fluoxetine HCl 10 mg 05/19/24 09:00 05/20/24 08:33 Fluoxetine 10 Mg Capsule PO 05/19/25 08:59 10 mg QAM [facility] Administration Heparin Sodium (Porcine) 5,000 unit 05/19/24 09:00 05/20/24 08:33 Heparin 5,000 Unit/Ml Vial SUBCUT 05/19/25 08:59 5,000 unit Q12HR [facility] Administration Meropenem 1 gm in 100 mls @ 33.333 mls/hr 05/20/24 20:00 Merrem IV Q8H [facility] Lamotrigine 100 mg 05/18/24 21:20 05/20/24 08:33 Lamotrigine 100 Mg Tablet PO 05/18/25 21:19 100 mg BID [facility] Administration Magnesium Hydroxide 30 ml 05/18/24 21:16 Magnesium Hydroxide Susp 30 Ml Udc PO 05/18/25 21:15 DAILY PRN constipation Nortriptyline HCl 20 mg 05/18/24 22:00 05/19/24 21:42 Nortriptyline 10 Mg Capsule PO 05/18/25 21:59 20 mg QHS [facility] Administration Ondansetron HCl 4 mg 05/18/24 21:12 Ondansetron 4 Mg/2 Ml Vial IV-PUSH 05/18/25 21:11 Q6H PRN Nausea And Vomiting Sodium Chloride 0 ml 05/18/24 16:55 05/18/24 19:18 Sodium Chloride 0.9 % 10 Ml Syringe IV-PUSH 05/18/25 16:54 10 ml PRN PRN Administration Flush Sodium Chloride 0 ml 05/18/24 22:00 05/20/24 13:30 Sodium Chloride 0.9 % 10 Ml Syringe IV-PUSH 05/18/25 21:59 Not Given QSHIFT [facility] A&P - Hospitalist Assessment/Plan (1) Severe sepsis: (2) Urinary tract infection: (3) Pyelonephritis: (4) [place] (acute kidney injury): (5) Bacteremia due to Gram-negative bacteria: Plan Severe sepsis likely due to pyelonephritis and UTI Gram negative Bradycardia UTI?patient has chronic Poole Pyelonephritis [place]?current creatinine 2.43, last creatinine 1 on 05/16/24 -Follow-up on cultures adjusted about accordingly ? Continue IV hydration- LR @ 75cc/hr as her renal function improved with IV fluid -Continue IV meropenem Chronic conditions?resume home meds as appropriate Seizure disorder?lamotrigine GERD?famotidine Depression?fluoxetine, nortriptyline DVT PPx?SCDs, heparin Diet order?regular CODE STATUS?DNR CCA with intubation Time Spent With Patient (min): 45 Documented By: Luis Santoro MD 05/20/241343 Signed By: <Electronically signed by Luis Santoro MD> 05/20/24 1348 [facility] Work Phone: [phone] 455-219510-19-2024 Progress note Author Luis Santoro [facility] May 20, 2024 10:02am Note Date/Time May 19, 2024 2 :33pm [facility] [address] [place] [address] Hospitalist Progress Note Signed Patient: Alessandra Hardy MR#: [id number] : 1960 Acct:[id number] Age/Sex: 64 / F Adm Date: 4 Loc: 4 Room: [address] [place] [address] Type: ADM IN Attending Dr: Luis Santoro MD Copies to: ~ Date of Service: 05/19/2024 Subjective Subjective Narrative: Pt seen and examined at bedside. She is not in acute distress. At baseline mental status. No fever or chills. No abdominal pain. States that she is feelingbetter today. Exam Physical Exam Vital Signs: Temp Pulse Resp BP Pulse Ox O2 Del Method 98.1 F 121 H 20 111/73 96 Room Air 05/19/24 07:58 05/19/24 07:58 05/19/24 07:58 05/19/24 07:58 05/19/24 07:58 05/19/24 08:00 Narrative: CONST- Appears well -developed and well nourished, ill appearing. Morbidly obese HEAD - Normocephalic and atraumatic EENT-Sclera nonicteric, conjunctive are non-erythemic, moist oral mucosa, pharynx clear NECK-Supple, no cervical lymphadenopathy CARDIAC-tachycardic, regular rhythm, S1 & S2. PULM-diminished without wheeze or rhonchi, RA, no accessory muscle use or cough noted ABD - Soft. Bowel sounds are normal. Softly distended. No tenderness, negativeCVA tenderness - Poole, cloudy turbid urine EXTREM-no edema BLE calves, nontender SKIN- W/D good turgor, chronic discoloration to RLE NEURO- A&Ox3 speech clear and tongue midline, equal facial symmetry, no focal motor deficits Objective Lab Results 05/19/24 04:51 05/19/24 04:51 Microbiology Results Microbiology 05/18/24 17:48 Blood - Left Hand Blood Culture - Preliminary Gram Negative Bacilli 05/18/24 17:07 Blood - Left Antecubital Blood Culture - Preliminary Klebsiella oxytoca Escherichia coli 05/18/24 17:07 Blood - Left Antecubital Bacterial ID (NA Multiplex Assay) - Final 05/18/24 17:09 Nasopharyngeal SARS-CoV-2, Influenza & RSV (PCR) - Final Meds Allergies and Active Meds Allergies aspirin Allergy (Unknown, Verified 05/18/24 16:59) Unknown Reaction silicone Allergy (Unknown, Verified 05/18/24 16:59) Rash adhesive tape Allergy (Verified 05/18/24 16:59) Rash Active Meds: Active Medications Generic Name Dose Route Start Last Admin Trade Name Freq PRN Reason Stop Dose Admin Acetaminophen 1,000 mg 05/18/24 21:12 05/19/24 04:24 Acetaminophen 500 Mg Tablet PO 05/18/25 21:11 1,000 mg Q6HR PRN Administration Pain Scale 1 - 3 or fever Bisacodyl 10 mg 05/18/24 21:16 Bisacodyl 10 Mg Supp.Rect PA 05/18/25 21:15 DAILY PRN constipation Famotidine 20 mg 05/19/24 09:00 05/19/24 08:31 Famotidine 20 Mg Tablet PO 05/19/25 08:59 20 mg DAILY [facility] Administration Fludrocortisone Acetate 0.05 mg 05/19/24 09:00 05/19/24 08:31 Fludrocortisone Acetate 0.1 Mg Tablet PO 05/19/25 08:59 0.05 mg QAM [facility] Administration Fluoxetine HCl 10 mg 05/19/24 09:00 05/19/24 08:31 Fluoxetine 10 Mg Capsule PO 05/19/25 08:59 10 mg QAM [facility] Administration Heparin Sodium (Porcine) 5,000 unit 05/19/24 09:00 05/19/24 08:31 Heparin 5,000 Unit/Ml Vial SUBCUT 05/19/25 08:59 5,000 unit Q12HR [facility] Administration Lactated Ringer's 1,000 mls @ 75 mls/hr 05/18/24 21:15 05/18/24 23:57 Lactated Ringers IV 05/20/24 02:09 75 mls/hr .[id number] [facility] Administration Meropenem 1 gm in 100 mls @ 33.333 mls/hr 05/20/24 00:00 Merrem IV Q12H [facility] Lamotrigine 100 mg 05/18/24 21:20 05/19/24 08:31 Lamotrigine 100 Mg Tablet PO 05/18/25 21:19 100 mg BID [facility] Administration Magnesium Hydroxide 30 ml 05/18/24 21:16 Magnesium Hydroxide Susp 30 Ml Udc PO 05/18/25 21:15 DAILY PRN constipation Nortriptyline HCl 20 mg 05/18/24 22:00 05/18/24 23:46 Nortriptyline 10 Mg Capsule PO 05/18/25 21:59 20 mg QHS [facility] Administration Ondansetron HCl 4 mg 05/18/24 21:12 Ondansetron 4 Mg/2 Ml Vial IV-PUSH 05/18/25 21:11 Q6H PRN Nausea And Vomiting Sodium Chloride 0 ml 05/18/24 16:55 05/18/24 19:18 Sodium Chloride 0.9 % 10 Ml Syringe IV-PUSH 05/18/25 16:54 10 ml PRN PRN Administration Flush Sodium Chloride 0 ml 05/18/24 22:00 05/19/24 06:10 Sodium Chloride 0.9 % 10 Ml Syringe IV-PUSH 05/18/25 21:59 Not Given QSHIFT [facility] A&P - Hospitalist Assessment/Plan (1) Severe sepsis: (2) Urinary tract infection: (3) Pyelonephritis: (4) [place] (acute kidney injury): Plan Severe sepsis likely due to pyelonephritis and UTI Gram negative Bradycardia UTI?patient has chronic Poole Pyelonephritis [place]?current creatinine 2.43, last creatinine 1 on 05/16/24 -Follow-up on cultures adjusted about accordingly ? Continue IV hydration- LR @ 75cc/hr as her renal function improved with IV fluid Chronic conditions?resume home meds as appropriate Seizure disorder?lamotrigine GERD?famotidine Depression?fluoxetine, nortriptyline DVT PPx?SCDs, heparin Diet order?regular CODE STATUS?DNR CCA with intubation after discussion with patient Time Spent With Patient (min): 45 Documented By: Luis Santoro MD 05/19/24 1430 Signed By: <Electronically signed by Luis Santoro MD> 05/20/24 1002 [facility] Work Phone: [phone] 257-188610-18-2024 Consult note Author Americo Maldonado [facility] May 19, 2024 10:40am Note Date/Time May 19, 2024 1 0:40am [facility] [address] [place] [address] Infect. Disease Consult Note Signed Patient: Alessandra Hardy MR#: [id number] : 1960 Acct:[id number] Age/Sex: 64 / F Adm Date: 4 Loc: Room: [address] [place] [address] Type: ADM IN Attending Dr: Luis Santoro MD Copies to: MD Luis Wakefield MD Robert J Vaschak, DO~ HPI Data of Consult Consult date: 05/19/24 Requesting Physician: Luis Santoro MD Primary Care Provider: Neva Miller DO Consult Narrative History of present illness: Ms. Hardy is a 64 year old female basically states she had a lot of lower abdominal pain and she was not emptying her bladder. She has a chronic Poole catheter and is scheduled for suprapubic catheter to be done the end of this month. She had a Poole catheter change when she got to the hospital this time. CT scan showed bilateral perinephric stranding with mild hydronephrosis. She was started on vancomycin and Zosyn. 05/18 blood cultures both positive. [facility] from the 1 is growing both Klebsiella and E. coli. Despite receiving Vanco and Zosyn in the ER she is now on meropenem. Urine cultures are pending. She overall feels better than when she got to the hospital. CC: Luis Santoro MD Review of Systems Review of Systems All other systems reviewed & are negative unless noted below or in HPI [facility] Medical History (Updated 05/19/24 @ 10:40 by Americo Maldonado MD) Poole catheter present Other lack of coordination Need for assistance with personal care Difficulty in walking, not elsewhere classified Other fracture of upper and lower end of left fibula, subsequent encounter for closed fracture with nonunion Radiculopathy, cervical region Erythema intertrigo Venous insufficiency (chronic) (peripheral) Dysphagia GERD (gastroesophageal reflux disease) Other abnormalities of gait and mobility Unsteadiness on feet Personal history of (healed) traumatic fracture History of falling Major depressive disorder, recurrent, unspecified Syncope and collapse GERD without esophagitis Cognitive communication deficit Muscle weakness (generalized) Unspecified lack of coordination Other seizures history of Congenital mitral stenosis Transient cerebral ischemic attack, unspecified Neuromuscular dysfunction of bladder, unspecified Age-related osteoporosis without current pathological fracture Cellulitis of right lower limb Multiple sclerosis Surgical History History of cystoscopy patient reports previous left stent placement History of tonsillectomy History of orthopedic surgery ankle and thigh surgery History of tubal ligation Family History Father Melanoma S/P CABG x 3 Myocardial infarction Mother Dementia Social History Smoking Status: Never smoker Tobacco Type: cigarettes Substance Use Type: None Substance Abuse Comment: Occasionally Allergies and Medications Allergies and Active Meds Allergies aspirin Allergy (Unknown, Verified 05/18/24 16:59) Unknown Reaction silicone Allergy (Unknown, Verified 05/18/24 16:59) Rash adhesive tape Allergy (Verified 05/18/24 16:59) Rash Active Medications Acetaminophen (Acetaminophen 500 Mg Tablet) 1,000 mg PO Q6HR PRN PRN Reason: Pain Scale 1 - 3 or fever Stop: 05/18/25 21:11 Last Admin: 05/19/24 04:24 Dose: 1,000 mg Bisacodyl (Bisacodyl 10 Mg Supp.Rect) 10 mg PA DAILY PRN PRN Reason: constipation Stop: 05/18/25 21:15 Famotidine (Famotidine 20 Mg Tablet) 20 mg PO DAILY [facility] Stop: 05/19/25 08:59 Last Admin: 05/19/24 08:31 Dose: 20 mg Fludrocortisone Acetate (Fludrocortisone Acetate 0.1 Mg Tablet) 0.05 mg PO QAM [facility] Stop: 05/19/25 08:59 Last Admin: 05/19/24 08:31 Dose: 0.05 mg Fluoxetine HCl (Fluoxetine 10 Mg Capsule) 10 mg PO QAM [facility] Stop: 05/19/25 08:59 Last Admin: 05/19/24 08:31 Dose: 10 mg Heparin Sodium (Porcine) (Heparin 5,000 Unit/Ml Vial) 5,000 unit SUBCUT Q12HR [facility] Stop: 05/19/25 08:59 Last Admin: 05/19/24 08:31 Dose: 5,000 unit Lactated Ringer's (Lactated Ringers) 1,000 mls @ 75 mls/hr IV .[id number] [facility] Stop: 05/20/24 02:09 Last Admin: 05/18/24 23:57 Dose: 75 mls/hr Meropenem (Merrem) 1 gm in 100 mls @ 200 mls/hr IV Q12H [facility] Last Admin: 05/18/24 23:57 Dose: 200 mls/hr Magnesium Sulfate/Dextrose (Magnesium Sulfate 1 Gm-*D5w*) 1 gm in 100 mls @ 100mls/hr IV ONCE ONE Stop: 05/19/24 11:29 Lamotrigine (Lamotrigine 100 Mg Tablet) 100 mg PO BID [facility] Stop: 05/18/25 21:19 Last Admin: 05/19/24 08:31 Dose: 100 mg Magnesium Hydroxide (Magnesium Hydroxide Susp 30 Ml Udc) 30 ml PO DAILY PRN PRN Reason: constipation Stop: 05/18/25 21:15 Nortriptyline HCl (Nortriptyline 10 Mg Capsule) 20 mg PO QHS [facility] Stop: 05/18/25 21:59 Last Admin: 05/18/24 23:46 Dose: 20 mg Ondansetron HCl (Ondansetron 4 Mg/2 Ml Vial) 4 mg IV-PUSH Q6H PRN PRN Reason: Nausea And Vomiting Stop: 05/18/25 21:11 Sodium Chloride (Sodium Chloride 0.9 % 10 Ml Syringe) 0 ml IV-PUSH PRN PRN PRN Reason: Flush Stop: 05/18/25 16:54 Last Admin: 05/18/24 19:18 Dose: 10 ml Sodium Chloride (Sodium Chloride 0.9 % 10 Ml Syringe) 0 ml IV-PUSH QSHIFT TRAVON Stop: 05/18/25 21:59 Last Admin: 05/19/24 06:10 Dose: Not Given Exam Physical Exam Vital Signs: Vital Signs Temp Pulse Pulse Resp BP BP Pulse Ox 05/19/24 08:00 05/19/24 07:58 98.1 F 121 H 20 111/73 96 05/19/24 04:00 05/19/24 04:00 98.5 F 120 H 20 115/74 95 05/18/24 23:58 111 H 22 109/75 95 05/18/24 23:30 05/18/24 22:33 98.1 F 109 H 18 128/84 97 05/18/24 22:00 97.7 F 109 H 20 125/64 96 05/18/24 21:00 107 H 18 119/60 96 05/18/24 20:00 105 H 16 128/61 97 05/18/24 19:22 110 H 20 119/63 97 05/18/24 17:50 110 H 05/18/24 17:44 109 H 20 120/58 L 97 05/18/24 17:02 22 94 L 05/18/24 16:55 98.2 F 114 H 18 119/65 94 L O2 Del Method 05/19/24 08:00 Room Air 05/19/24 07:58 Room Air 05/19/24 04:00 Room Air 05/19/24 04:00 Room Air 05/18/24 23:58 Room Air 05/18/24 23:30 Room Air 05/18/24 22:33 Room Air 05/18/24 22:00 Room Air 05/18/24 21:00 Room Air 05/18/24 20:00 Room Air 05/18/24 19:22 Room Air 05/18/24 17:50 05/18/24 17:44 Room Air 05/18/24 17:02 Room Air 05/18/24 16:55 Room Air Intake and Output 05/18/24 05/19/24 05/19/24 23:59 07:59 15:59 Intake Total 3000 / 3000 200 / 200 Output Total 850 / 850 950 / 950 Balance 2150 / 2150 -750 / -750 Intake: IV 2600 / 2600 Piperacillin/Tazo 4.5GM-*D5* 4. 100 / 100 5 gm In 100 ml @ 200 mls/hr IV ONCE ONE Rx#:[id number] Sodium Chloride 0.9% 1,000 ml 1 2000 / 2000 ,000 ml @ 999 mls/hr IV .Q1H1M ONE Rx#:[id number] Vancomycin 1.75 gm In Dextrose 500 / 500 5 % in Water 500 ml @ 285.714 mls/hr IV ONCE ONE Rx#:[id number] Oral 400 / 400 200 / 200 Output: Urine 850 / 850 Urine Amount (Catheter) 950 / 950 Urethral (Poole) 950 / 950 Other: Weight 234 lb 2.095 oz 236 lb 12.423 oz Patient Weight 05/19/24 23:59 Weight 236 lb 12.423 oz Const General: comfortable Orientation: oriented x3 HEENT Head: normal to inspection Mouth: oral mucosae normal Eyes General: appearance normal, both eyes and all related structures Neck Neck: normal visual inspection Chest Chest palpation & inspection: normal inspection of the chest Resp Effort & Inspection: normal respiratory effort Auscultation: clear to auscultation bilaterally Cardio Palpation: normal PMI Rate: regular rate Rhythm: regular rhythm GI Inspection: normal to inspection Palpation: soft and nontender Auscultation: normal bowel sounds Skin General: no rashes or lesions noted Neuro General: patient oriented x3 Extrem General: normal to inspection Results - Infectious Disease Labs 05/19/24 04:51 05/19/24 04:51 Labs: 05/18/24 17:07: Corrected WBC 30.2 H, Uncorrected WBC Count 30.2 H, BUN 26 H, Creatinine 2.43 H 05/19/24 04:51: Corrected WBC 20.8 H, Uncorrected WBC Count 20.8 H, BUN 22, Creatinine 1.62 H D 05/18/24 18:09 Urine Color Light-orange A Urine Appearance Turbid A Urine pH 6.5 Ur Specific [place] 1.011 Urine Protein 70 H Urine Glucose (UA) Normal Urine Ketones Negative Urine Occult Blood 3+ H Urine Nitrite Negative Urine Bilirubin Negative Urine Urobilinogen Normal Ur Leukocyte Esterase 4+ H Urine RBC Innumerable H Urine WBC Innumerable H Urine WBC Clumps Many H Ur Squamous Epith Cells 5-9 H Urine Bacteria 3+ H Hyaline Casts None Urine Mucus Rare Microbiology Results Microbiology Narrative: 05/18/24 17:48 Blood Culture - Preliminary Blood - Left Hand Gram Negative Bacilli 05/18/24 17:07 Blood Culture - Preliminary Blood - Left Antecubital Klebsiella oxytoca Escherichia coli Bacterial ID (NA Multiplex Assay) - Final 05/18/24 18:09 Urine Culture - Pending Clean Void Midstream 05/18/24 17:09 SARS-CoV-2, Influenza & RSV (PCR) - Final Nasopharyngeal Imaging and Cardiology Status: report viewed by me Results Comments: CT: IMPRESSION: Bilateral perinephric and periureteral fat stranding with mild hydronephrosis heterogenous enhancement and urothelial thickening/enhancement. There also appears to be cystitis type changes with Poole catheter in place. Developing pyelonephritis cannot BE excluded. Correlation with urinalysis is recommended. A&P - Infectious Disease (1) Pyelonephritis: (2) Sepsis: (3) Urinary tract infection: (4) Bacteremia: Plan Gram negative yesenia bacteremia likely stemming from a urinary tract infection based on CT scan. Had a Poole in place that was changed on admission. Scheduled for suprapubic at the end of this month. Sent urine culture is not yet back but history of Pseudomonas in urine is noted. Blood cultures so far with Klebsiella and E. coli. Will repeat blood cultures; maintain meropenem until urine culture resulted. Documented By: Americo Maldonado MD 05/19/24 1033 Signed By: <Electronically signed by MD Americo Maldonado> 05/19/24 1040 [facility] Work Phone: 1(885) 494-708210-18-2024 History and physical note Author [facility] May 19, 2024 6:49am Note Date/Time May 18, 2024 9 :18pm [facility] [address] [place] [address] Hospitalist H&P Signed Patient: Alessandra Hardy MR#: [id number] : 1960 Acct:[id number] Age/Sex: 64 / F Adm Date: 4 Loc: 4 Room: 0K6341-7 Type: ADM IN Attending Dr: Luis Santoro MD Copies to: DO Luis Chiang MD Brianna Hardy, [employer] D[employer]IV[employer]IVES TRADER Neva Miller,DO~ HPI DATE OF EXAMINATION: 05/18/24 CHIEF COMPLAINT: fever, vomiting, low blood pressure HISTORY OF PRESENT ILLNESS: Ms. Hardy is a 64-year-old female with a PMH of seizure disorder, TIA, spastic bladder with chronic Poole, MS that presented to the emergency room today for low blood pressure, fever, nausea and vomiting and lower abdominal pain. Patient states for the last couple of days she has been having fevers, chills, nausea and vomiting, low blood pressure and lower abdominal pressure and pain. She denies chest pain, shortness of breath. She currently denies pain, states her lower abdominal pressure and pain stopped when they changed her Poole in theemergency room. She states that she is scheduled to have a suprapubic catheter placed on May [address] Allan. She does report that she was sent in a couple days ago for a CT of the abdomen pelvis, has not started any antibiotics at the [facility]. She states that she is a resident at the [facility] due to weakness, falling at home. She states that she has never smoked, drinks alcoholoccasionally. Chest x-ray shows no acute cardiopulmonary abnormality. CT of the abdomen pelvis with contrast shows bilateral perinephric and periureteral fat stranding with mild hydronephrosis, heterogenous enhancement and urothelial thickening/enhancement, also appears to be cystitis type changes, developing pyelonephritis cannot be excluded. Bilateral nephrolithiasis, largest stone measuring 3 mm in the inferior pole of the right kidney. D-dimer was elevated at 1172, CTA of the chest showed no acute cardiopulmonary process, no evidence of PE. PT/INR unremarkable. CBC with white blood cell count of 30,000, otherwise unremarkable. CMP with serum bicarb of 19.3, anion gap 18.4, BUN 26, creatinine 2.43, glucose 130, direct bilirubin 0.3, ALP 106. Initial lactic acid 5.8, repeat is pending. Troponin 149.5, repeat is pending. BNP slightly elevated at 149. Lipase normal at 9. UA with light orange, turbid urine, 70 ofprotein, 3+ occult blood, 4+ leukocytes, innumerable RBCs and WBCs, many WBC clumps, 3+ bacteria. Nasal swab was negative for COVID, influenza and RSV. Blood cultures were drawn and these are pending, urine culture also pending. EKG shows sinus tachycardia. Patient was medicated with 2 L saline bolus, vancomycin, Zosyn, Tylenol. She will be admitted as inpatient to the progressive floor. Review of Systems Review of Systems Review of systems: A 10 point review of systems was obtained, negative unless noted in the HPI or below. [facility] Medical History (Updated 05/18/24 @ 22:09 by Brianna Hardy APRN) Poole catheter present Other lack of coordination Need for assistance with personal care Difficulty in walking, not elsewhere classified Other fracture of upper and lower end of left fibula, subsequent encounter for closed fracture with nonunion Radiculopathy, cervical region Erythema intertrigo Venous insufficiency (chronic) (peripheral) Dysphagia GERD (gastroesophageal reflux disease) Other abnormalities of gait and mobility Unsteadiness on feet Personal history of (healed) traumatic fracture History of falling Major depressive disorder, recurrent, unspecified Syncope and collapse GERD without esophagitis Cognitive communication deficit Muscle weakness (generalized) Unspecified lack of coordination Other seizures history of Congenital mitral stenosis Transient cerebral ischemic attack, unspecified Neuromuscular dysfunction of bladder, unspecified Age-related osteoporosis without current pathological fracture Cellulitis of right lower limb Multiple sclerosis Surgical History (Updated 05/18/24 @ 22:02 by Brianna Hardy APRN) History of cystoscopy patient reports previous left stent placement History of tonsillectomy History of orthopedic surgery ankle and thigh surgery History of tubal ligation Family History Father Melanoma S/P CABG x 3 Myocardial infarction Mother Dementia Social History Housing: alf Housing/Living Situation Comments: [place] Smoking Status: Former smoker Tobacco Type: cigarettes Substance Use Type: Alcohol Substance Abuse Comment: Occasionally Meds Medications and Allergies Allergies aspirin Allergy (Unknown, Verified 05/18/24 16:59) Unknown Reaction silicone Allergy (Unknown, Verified 05/18/24 16:59) Rash adhesive tape Allergy (Verified 05/18/24 16:59) Rash Home Medications fludrocortisone 0.1 mg tablet 0.05 mg PO QAM cellulitis 04/23/21 [History Confirmed 05/18/24] lamotrigine 100 mg tablet 100 mg PO BID seizures 04/23/21 [History Confirmed 05/18/24] nortriptyline 10 mg capsule 20 mg PO QHS 04/23/21 [History Confirmed 05/18/24] cholecalciferol (vitamin D3) 25 mcg (1,000 unit) tablet (Vitamin D3) 75 mcg PO QAM 12/11/21 [History Confirmed 05/18/24] menthol 3.2 mg lozenges 3.2 mg PO DIRECTED 05/12/22 [History Confirmed 05/18/24] fluoxetine 10 mg capsule (Prozac) 10 mg PO QAM 05/26/22 [History Confirmed 05/18/24] bisacodyl 10 mg rectal suppository 10 mg PA DAILY PRN constipation 07/28/23 [History Confirmed 05/18/24] magnesium hydroxide 400 mg/5 mL oral suspension (Milk of Magnesia) 2,400 mg PO DAILY PRN constipation 07/28/23 [History Confirmed 05/18/24] acetaminophen 325 mg capsule 650 mg PO Q6HR PRN pain 10/17/23 [History Confirmed 05/18/24] omeprazole 20 mg capsule,delayed release 20 mg PO QAM 05/16/24 [History Confirmed 05/18/24] zoledronic acid 5 mg/100 mL in mannitol 5 %-water intravenous piggybck (Reclast)ea IV QYEAR 05/16/24 [History] famotidine 20 mg tablet (Acid-Pep) 20 mg PO DAILY 05/18/24 [History Confirmed 05/18/24] Exam Physical Exam Vital Signs: Temp Pulse Resp BP Pulse Ox O2 Del Method 98.2 F 107 H 18 119/60 96 Room Air 05/18/24 16:55 05/18/24 21:00 05/18/24 21:00 05/18/24 21:00 05/18/24 21:00 05/18/24 21:00 Narrative: CONST- Appears well -developed and well nourished. Morbidly obese?BMI 40.5 HEAD - Normocephalic and atraumatic EENT-Sclera nonicteric, conjunctive are non-erythemic, moist oral mucosa, pharynx clear NECK-Supple, no cervical lymphadenopathy CARDIAC-tachycardic, regular rhythm, S1 & S2. PULM-diminished without wheeze or rhonchi, RA, no accessory muscle use or cough noted ABD - Soft. Bowel sounds are normal. Softly distended. No tenderness - Poole, cloudy, yellow urine EXTREM-no edema BLE calves, nontender SKIN- W/D good turgor, chronic discoloration to RLE MS- MAEX4 spontaneously with equal with equal strength?generalized weakness NEURO- A&Ox3 speech clear and tongue midline, equal facial symmetry, no focal motor deficits PSYCH-Mood, affect, and behavior appropriate Results - Hospitalist H&P Lab Results Labs: Laboratory Last Values Corrected WBC 30.2 X10E3/uL (3.8-11.6) H 05/18/24 17:07 Uncorrected WBC Count 30.2 x10E3/uL (3.8-11.6) H 05/18/24 17:07 RBC 4.75 X10E6/uL (3.60-5.00) 05/18/24 17:07 Hgb 14.4 g/dL (11.8-15.4) 05/18/24 17:07 Hct 43.8 % (34.0-46.4) 05/18/24 17:07 MCV 92.1 fl (80-100) 05/18/24 17:07 MCH 30.4 pg (24.7-34.3) 05/18/24 17:07 MCHC 33.0 g/dL (32.0-35.0) 05/18/24 17:07 RDW 14.2 % (11.9-15.3) 05/18/24 17:07 Plt Count 216 x10E3/uL (150-450) 05/18/24 17:07 MPV 7.5 fl (6.3-10.7) 05/18/24 17:07 Neut % (Auto) 95.1 % (.) 05/18/24 17:07 Lymph % (Auto) 1.8 % (.) 05/18/24 17:07 [place] % (Auto) 3.0 % (.) 05/18/24 17:07 Eos % (Auto) 0.0 % (.) 05/18/24 17:07 Baso % (Auto) 0.1 % (.) 05/18/24 17:07 Nucleat RBC Rel Count 0.3 /100 WBC (0-0.5) 05/18/24 17:07 Neut # (Auto) 28.7 x10E3/uL (1.8-7.7) H 05/18/24 17:07 Lymph # (Auto) 0.5 x10E3/uL (1.00-4.8) L 05/18/24 17:07 [place] # (Auto) 0.9 x10E3/uL (0.0-0.8) H 05/18/24 17:07 Eos # (Auto) 0.0 x10E3/uL (0.0-0.45) 05/18/24 17:07 Baso # (Auto) 0.0 x10E3/uL (0.0-0.2) 05/18/24 17:07 Monocyte Dist Width 30.71 % (0.00-20.00) H 05/18/24 17:07 PT 13.3 Seconds (9.0-12.9) H 05/18/24 17:07 INR 1.2 05/18/24 17:07 D-Dimer Quant (PE/DVT) 1172 ng/mL (0-243) H 05/18/24 17:07 PHA Creatinine Clear 28.27 05/18/24 17:07 Sodium 137 mmol/L (136-145) 05/18/24 17:07 Potassium 3.7 mmol/L (3.5-5.1) 05/18/24 17:07 Chloride 103 mmol/L (98-107) 05/18/24 17:07 Carbon Dioxide 19.3 mmol/L (21.0-31.0) L 05/18/24 17:07 Anion Gap 18.4 mEq/L (6.0-15.0) H 05/18/24 17:07 BUN 26 mg/dL (7-25) H 05/18/24 17:07 Creatinine 2.43 mg/dL (0.60-1.20) H 05/18/24 17:07 Est GFR (CKD-EPI) 21.812 mL/Min 05/18/24 17:07 Glucose 130 mg/dL (70-100) H 05/18/24 17:07 Lactic Acid 5.8 mmol/L (0.5-2.2) H* 05/18/24 17:07 Calcium 9.1 mg/dL (8.6-10.3) 05/18/24 17:07 Total Bilirubin 0.9 mg/dl (0.3-1.0) 05/18/24 17:07 Direct Bilirubin 0.30 mg/dL (0.03-0.18) H 05/18/24 17:07 Indirect Bilirubin 0.6 mg/dL 05/18/24 17:07 AST 24 U/L (13-39) 05/18/24 17:07 ALT 15 U/L (7-52) 05/18/24 17:07 Alkaline Phosphatase 106 U/L (34-104) H 05/18/24 17:07 Total Creatine Kinase 46 U/L (30-223) 05/18/24 17:07 Troponin I High Sens 149.5 pg/mL (0.0-15.0) H* 05/18/24 17:07 B-Natriuretic Peptide 149.0 pg/mL (5-100) H 05/18/24 17:07 Total Protein 7.8 gm/dL (6.4-8.9) 05/18/24 17:07 Albumin 3.5 gm/dL (3.5-5.7) 05/18/24 17:07 Globulin 4.3 gm/dL 05/18/24 17:07 Albumin/Globulin Ratio 0.8 05/18/24 17:07 Lipase 9.0 U/L (11.0-82.0) L 05/18/24 17:07 Urine Color Light-orange (Yellow) A 05/18/24 18:09 Urine Appearance Turbid (Clear) A 05/18/24 18:09 Urine pH 6.5 (5.0-9.0) 05/18/24 18:09 Ur Specific [place] 1.011 (1.001-1.030) 05/18/24 18:09 Urine Protein 70 mg/dL (Negative) H 05/18/24 18:09 Urine Glucose (UA) Normal mg/dL (Normal) 05/18/24 18:09 Urine Ketones Negative (Negative) 05/18/24 18:09 Urine Occult Blood 3+ (Negative) H 05/18/24 18:09 Urine Nitrite Negative (Negative) 05/18/24 18:09 Urine Bilirubin Negative (Negative) 05/18/24 18:09 Urine Urobilinogen Normal mg/dL (Normal) 05/18/24 18:09 Ur Leukocyte Esterase 4+ (Negative) H 05/18/24 18:09 Urine RBC Innumerable /HPF (0-4) H 05/18/24 18:09 Urine WBC Innumerable /HPF (0-4) H 05/18/24 18:09 Urine WBC Clumps Many /LPF (None Seen) H 05/18/24 18:09 Ur Squamous Epith Cells 5-9 /HPF (0-2) H 05/18/24 18:09 Urine Bacteria 3+ /HPF (None Seen) H 05/18/24 18:09 Hyaline Casts None /LPF (0-8) 05/18/24 18:09 Urine Mucus Rare /LPF 05/18/24 18:09 SARS-CoV-2 Rap RNA(RT-PCR) Negative (Negative) 05/18/24 17:09 Microbiology Results Micro: Microbiology - Results from entire visit 05/18/24 17:09 Nasopharyngeal SARS-CoV-2, Influenza & RSV (PCR) - Final Assessment & Plan Assessment/Plan (1) Severe sepsis: (2) Urinary tract infection: (3) Pyelonephritis: (4) [place]IL[place] (acute kidney injury): Plan Severe sepsis likely due to pyelonephritis and UTI UTI?patient has chronic Poole Pyelonephritis [place]?current creatinine 2.43, last creatinine 1 on 05/16/24 ? Broad-spectrum antibiotics were started in the emergency room to cover sepsis with vancomycin and Zosyn ? Will start meropenem for previous culture results with E. coli and Pseudomonasaeruginosa ? IV hydration- LR @ 75cc/hr x 2L ? CBC, BMP, magnesium in a.m. ? Follow blood cultures, urine culture Chronic conditions?resume home meds as appropriate Seizure disorder?lamotrigine GERD?famotidine Depression?fluoxetine, nortriptyline DVT PPx?SCDs, heparin Diet order?regular CODE STATUS?DNR CCA with intubation after discussion with patient IP vs OBS Justification Based on differential dx, clinical care plan, and risk of adverse events, if untreated, in my clinical judgement this patient requires an acute care setting as: INPATIENT because of an expectation of an over 2 midnight stay. Estimated length of stay (# of days): 3 Quality Measures SEPSIS Tissue perfusion reassessment (select if applicable): Tissue perfusion reassessed after bolus given FOCUSED EXAM Capillary refill: Capillary refill < 3 seconds Peripheral pulses: Pulses present bilaterally Skin color/condition: Warm and pink Urinary output: Increased output, Cloudy and Yellow Documented By: Brianna Hardy APRN 05/18/242116 Signed By: <Electronically signed by MARIANELA Hardy> 05/18/242214 <Electronically signed by John Frank DO> 05/19/24 0649 [facility] Work Phone: 1(139) 887-327410-17-2024 Evaluation note* Diagnosis Onset Date Resolution Status Admit Date Bacteremia acute May 18, 2024 7:45pm Bacteremia due to Gram-negat nani bacteria acute May 18 7:45pm [place] (acute kidney injury) resolved May 18, 2024 7:45pm Dehydration resolved May 18, 2024 7:45pm Elevated troponin resolved May 18, 2024 7:45pm Hypotension resolved May 18, 2024 7:45pm Pyelonephritis resolved May 182023 7:45pm Sepsis resolved May 18, 2024 7:45pm Severe sepsis resolved May 7:45pm Tachycardia resolved May 18, 2024 7:45pm Urinary tract infection resolved O ctober 2023 7:45pm [facility] Work Phone: 1(623) 414-352910-03-2024 History of Present illness Narrative* Cash Blair NP - 05/04/2024 1:30 PM EDT Images from the original note were not included. Alessandra Hardy is a 64 y.o. female presents with chief complaint of LT Knee Injection HPI: HPI History of Present Illness HISTORIES: PAST MEDICAL HISTORY: Past Medical History: Diagnosis Date Cellulitis of leg, right Cervical radiculopathy Frailty Frequent falls Hx of Clostridium difficile infection Intertrigo Multiple sclerosis (CMS/HCC) Neurogenic bladder Orthostatic hypotension Osteoporotic compression fracture of spine (CMS/HCC) fragility Recurrent cellulitis Venous stasis dermatitis SURGICAL HISTORY: Past Surgical History: Procedure Laterality Date COLONOSCOPY 04/23/2021 KYPHOSIS SURGERY SOCIAL HISTORY: Social History Tobacco Use Smoking status: Never Smokeless tobacco: Never Substance Use Topics Alcohol use: Never Drug use: Never Depression: Not on file FAMILY HISTORY: Family History Problem Relation Name Age of Onset Melanoma Father Multiple myeloma Neg Hx MEDICATIONS: Current Outpatient Medications Medication Instructions acetaminophen (TYLENOL 8 HOUR) 650 mg, Oral, Every 8 hours PRN, Do not crush, chew, or split. bisacodyl (Bisacodyl Laxative) 10 MG suppository Rectal carboxymethylcellulose (Artificial Tears) 1 % ophthalmic solution 1 drop, 3 times daily cholecalciferol (Vitamin D3) 25 MCG (1000 UT) tablet Oral, Daily fludrocortisone (Florinef) 0.1 MG tablet 1 tablet, Oral, Every 24 hours FLUoxetine (PROZAC) 10 mg, Oral, Every 24 hours lamoTRIgine (LAMICTAL) 100 mg, Oral, Every 12 hours mirabegron ER (MYRBETRIQ) 50 mg, Oral, Nightly, Do not crush, chew, or split. nortriptyline (Pamelor) 10 MG capsule 2 capsules, Oral, Every 24 hours pantoprazole (PROTONIX) 40 mg, Oral, Every 24 hours terbinafine (LamISIL) 1 % cream Topical, 2 times daily ALLERGIES: Allergies Allergen Reactions Aspirin Other Reaction(s): Unknown Silicone Other Reaction(s): Unknown Wound Dressing Adhesive PHYSICAL EXAM: Visit Vitals Smoking Status Never BP Readings from Last 3 Encounters: 02/15/23 110/80 12/15/22 108/76 11/04/22 110/70 Wt Readings from Last 3 Encounters: 12/15/22 230 lb 12/10/22 230 lb 11.2 oz Physical Exam Constitutional: Appearance: Normal appearance. Comments: In wheelchair Abdominal: Comments: Tenderness in LLQ. Musculoskeletal: Comments: Mild arthritic changes of medial and lateral left knee. Neurological: Mental Status: She is alert. Physical Exam Results ASSESSMENT AND PLAN: Assessment & Plan Diagnosis Plan 1. Localized osteoarthritis of left knee 2. LLQ pain Ultrasound guided injection was performed using semi-sterile technique. Ethyl chloride was used as topical anesthetic. Skin was cleansed with alcohol wipe. 23 gauge 1 and half inch needle inserted into the joint using lateral approach. No effusion present. 2 ml 1% lidocaine and 1 ml 40 mg kenalog injected into the joint. Injection administered without complication. C/o LLQ pain for about a week. No fever. No systemic symptoms. Yesterday and today, had two pus like stools. No blood. No recent antibx use. Check CT of abd/pelvis. C/o diverticulitis. Check stool for culture and c diff. Patient is here for follow up of chronic conditions. I am following Dr Miller's established plan of care for these issues. Dr Miller is remotely available today and is supervising patient care. documented in this encounterGeneral Leonard Wood [facility] [id number] Hospital Discharge instructions Patient Education 02/09/2024 14:12:05 Suprapubic Catheter Home Guide Suprapubic Catheter Home Guide A suprapubic catheter is a flexible tube that is used to drain urine from the bladder into a collection bag outside the body. The catheter is inserted into the bladder through a small opening in the lower abdomen, above the pubic bone (suprapubic area) and a few inches below your belly button (navel). A tiny balloon filled with germ-free (sterile) water helps to keep the catheter in place. The collection bag must be emptied at least once a day and cleaned at least every other day. The collection bag can be put beside your bed at night and attached to your leg during the day. You may have a large collection bag to use at night and a smaller one to use during the day. Your suprapubic catheter may need to be changed every 4 6 weeks, or as often as recommended by yourhealth care provider. Healing of the tract where the catheter is placed can take 6 weeks to 6 months. During that time, your health care provider may change your catheter. Once the tract is well healed, you or a caregiver will change your suprapubic catheter at home. What are the risks? This catheter is safe to use. However, problems can occur, including: Blocked urine flow. This can occur if the catheter stops working, or if you have a blood clot in your bladder or in the catheter. Irritation of the skin around the catheter. Infection. This can happen if bacteria gets into your bladder. Supplies needed: Two pairs of sterile gloves. Paper towels. Catheter. Two syringes. Sterile water. Sterile cleaning solution. Lubricant. Collection bags. How to change the catheter 1.Drink plenty of fluids during the hours before you change the catheter. 2.Wash your hands with soap and water. If soap and water are not available, use hand wastewater plant operator. 3.Draw up sterile water into a syringe to have ready to fill the new catheter balloon. The amount will depend on the size of the balloon. 4.Have all of your supplies ready and close to you on a paper towel. 5.Lie on your back, sitting slightly upright so that you can see the catheter and opening. 6.Put on sterile gloves. 7.Clean the skin around the catheter opening using the sterile cleaning solution. 8.Remove the water from the balloon in the catheter using a syringe. 9.Slowly remove the catheter. If the catheter seems stuck, or if you have difficulty removing it: Do not pull on it. Call your health care provider right away. 10.Place the old catheter on a paper towel to discard later. 11.Take off the used gloves, and put on a new pair. 12.Put lubricant on the end of the new catheter that will go into your bladder. 13.Clean the skin around the catheter opening using the sterile cleaning solution. 14.Gently slide the catheter through the opening in your abdomen and into the tract that leads to your bladder. 15.Wait for some urine to start flowing through the catheter. 16.When urine starts to flow through the catheter, attach the collection bag to the end of the catheter. Make sure the connection is tight. 17.Use a syringe to fill the catheter balloon with sterile water. Fill to the amount directed by your health care provider. 18.Remove the gloves and wash your hands with soap and water. How to care for the skin around the catheter Follow your health care provider's instructions on caring for your skin. Use a clean washcloth and soapy water to clean the skin around your catheter every day. Pat the area dry with a clean paper towel. Do not pull on the catheter. Do not use ointment or lotion on this area, unless told by your health care provider. Check the skin around the catheter every day for signs of infection. Check for: ?Redness, swelling, or pain. ?Fluid or blood. ?Warmth. ?Pus or a bad smell. How to empty and clean the collection bag Empty the large collection bag every 8 hours. Empty the small collection bag when it is about ? full. Clean the collection bag every 2 3 days, or as often as told by your health care provider. To do this: 1.Wash your hands with soap and water. If soap and water are not available, use hand wastewater plant operator. 2.Disconnect the bag from the catheter and immediately attach a new bag to the catheter. 3.Hold the used bag over the toilet or another container. 4.Turn the valve (spigot) at the bottom of the bag to empty the urine. Empty the used bag completely. Do not touch the opening of the spigot. Do not let the opening touch the toilet or container. 5.Close the spigot tightly when the bag is empty. 6.Clean the used bag in one of the following methods: According to the blow off worker's instructions. As told by your health care provider. 7.Let the bag dry completely. Put it in a clean plastic bag before storing it. General tips Always wash your hands before and after caring for your catheter and collection bag. Use a mild, fragrance-free soap. If soap and water are not available, use hand wastewater plant operator. Clean the outside of the catheter with soap and water as often as told by your health care provider. Always make sure there are no twists or kinks in the catheter tube. Always make sure there are no leaks in the catheter or collection bag. Always wear the leg bag below your knee. Make sure the overnight drainage bag is always lower than the level of your bladder, but do not letit touch the floor. Before you go to sleep, hang the bag inside a wastebasket that is covered by a clean plastic bag. Drink enough fluid to keep your urine pale yellow. Do not take baths, swim, or use a hot tub until your health care provider approves. Ask your healthcare provider if you may take showers. Contact a kenyatta care provider if: You leak urine. You have redness, swelling, or pain around your catheter. You have fluid or blood coming from your catheter opening. Your catheter opening feels warm to the touch. You have pus or a bad smell coming from your catheter opening. You have a fever or chills. Your urine flow slows down. Your urine becomes cloudy or smelly. Get help right away if: Your catheter comes out. You have: ?Nausea. ?Back pain. ?Difficulty changing your catheter. ?Blood in your urine. ?No urine flow for 1 hour. Summary A suprapubic catheter is a flexible tube that is used to drain urine from the bladder into a collection bag outside the body. Your suprapubic catheter may need to be changed every 4 6 weeks, or as recommended by your health care provider. Follow instructions on how to change the catheter and how to empty and clean the collection bag. Always wash your hands before and after caring for your catheter and collection bag. Drink enough fluid to keep your urine pale yellow. Get help right away if you have difficulty changing your catheter or if there is blood in your urine. This information is not intended to replace advice given to you by your health care provider. Make sure you discuss any questions you have with your health care provider. Document Revised: 09/26/2020 Document Reviewed: 08/23/2019 [employer] Patient Education 2022 [employer]. 02/09/2024 14:07:14 Neurogenic Bladder Neurogenic Bladder Neurogenic bladder is a bladder control disorder. It is usually caused by problems with the nerves that control the bladder. The brain sends signals through the spinal cord to the muscles in the bladder that start and stop urine flow. With neurogenic bladder, the nerves and muscles do not work together the way they should. This condition may make the bladder overactive, meaning you have trouble holding urine. In other cases, it may make the bladder underactive. This means that you have trouble passing urine. What are the causes? This condition may be caused by nerve damage or a condition that disrupts the signals from your brain to your bladder. Many things can cause these nerve problems, including: A disease that affects the nervous system, such as: ?Alzheimer's disease. ?Cerebral palsy. ?Multiple sclerosis. ?Diabetes. ?Parkinson's disease. Damage to your brain or spinal cord. This can come from: ?Trauma. ?Tumors. ?Infection. ?Surgery. ?Alcohol abuse. ?Stroke. ?A congenital disability that affects the spinal cord. What increases the risk? You are more likely to develop this condition if you have nerve damage or a nerve disorder. What are the signs or symptoms? Signs and symptoms of this condition include: Leaking or gushing urine (incontinence). A sudden, strong urge to pass urine (urgency). Frequent urination during the day and night. Being unable to empty your bladder completely (urinary retention). Frequent urinary tract infections. How is this diagnosed? This condition may be diagnosed based on: Your symptoms and medical history. A physical exam. Records from a bladder diary. You may be asked to keep a record or log of your bladder symptoms andthe times that you urinate. You may also have tests, such as: A urine test to check for infection. A bladder scan after you urinate to see how much urine is left in your bladder. Tests to measure your urine flow and see how well the flow is controlled (urodynamic tests). A procedure that uses a small device with a camera to look through your urethra into your bladder (cystoscopy). A health care provider who specializes in the urinary tract (urologist) may do this test. Imaging tests of your brain or spine, such as MRI or CT scan. How is this treated? Treatment for this condition depends on the cause and the symptoms that you have. Work closely withyour health care provider to find the treatments that will improve your quality of life. Treatment options include: Learning ways to control when you urinate, such as: ?Urinating at scheduled times. ?Training yourself to delay urination. ?Exercises to strengthen the muscles that control urine flow (Kegel exercises). ?Avoiding foods or drinks that make your symptoms worse. Taking medicines to: ?Stimulate an underactive bladder. ?Relax an overactive bladder. ?Treat a urinary tract infection. Learning how to use a thin tube (catheter) to empty your bladder. A catheter is a hollow tube that you pass through your urethra. Procedures to stimulate the nerves that control your bladder. Surgery, if other treatments do not help. Follow these instructions at home: Lifestyle Keep a bladder diary to find out which foods, liquids, or activities make your symptoms worse. Use your bladder diary to schedule bathroom trips. If you are away from home, plan to be near a bathroom when your schedule says you will need one. Limit beverages that stimulate urination. These include soda, coffee, and tea. After urinating, wait a few minutes and try again. Make sure you urinate just before you leave the house and just before you go to bed. Kegel exercises Do Kegel exercises to strengthen the muscles that control the passing of urine. These muscles are the ones you use to try to hold urine when you need to urinate. To do Kegel exercises: 1.Squeeze your pelvic floor muscles tight, as if you are trying to stop the flow of urine. You should feel a tight lift in your rectal area. If you are female, you should also feel a tightness in your vaginal area. Keep your stomach, buttocks, and legs relaxed. 2.Hold the muscles tight for 5 10 seconds. 3.Relax your muscles for the same amount of time. 4.Repeat 10 times. Repeat this exercise 3 times a day or as many times as told by your health care provider. General instructions Take gsve-wgs-pfrsynj and prescription medicines only as told by your health care provider. Keep all follow-up visits. This is important. Contact a health care provider if: You are having a hard time controlling your symptoms. Your symptoms are getting worse. You have signs of a urinary tract infection. These may include: ?A burning feeling when you urinate. ?Fever or chills. ?Cloudy or bloody urine. Get help right away if: You cannot pass urine. Summary Neurogenic bladder is a bladder control disorder caused by problems with the nerves that control the bladder. This condition may make the bladder overactive or underactive. This condition may be caused by nerve damage or a condition that disrupts the signals from your brain to your bladder. Treatment depends on the cause of your neurogenic bladder and the symptoms that you have. Work closely with your health care provider to find the treatments that will improve your quality of life. This information is not intended to replace advice given to you by your health care provider. Make sure you discuss any questions you have with your health care provider. Document Revised: 04/03/2021 Document Reviewed: 04/03/2021 [employer] Patient Education 2022 [employer]. Follow Up Care 12/30/2023 11:41:26 With:JERRELL EVANS, Tammy Burk, URL Address: [facility] [address] , [place] [address]- When: Unknown [facility] 07-10-2024 NotePatient Education Urology Suprapubic Catheter Home Guide A suprapubic catheter is a flexible tube that is used to drain urine from the bladder into a collection bag outside the body. The catheter is inserted into the bladder through a small opening in the lower abdomen, above the pubic bone (suprapubic area) and a few inches below your belly button (navel). A tiny balloon filled with germ-free (sterile) water helps to keep the catheter in place. The collection bag must be emptied at least once a day and cleaned at least every other day. The collection bag can be put beside your bed at night and attached to your leg during the day. You may have a large collection bag to use at night and a smaller one to use during the day. Your suprapubic catheter may need to be changed every 4?6 weeks, or as often as recommended by yourhealth care provider. Healing of the tract where the catheter is placed can take 6 weeks to 6 months. During that time, your health care provider may change your catheter. Once the tract is well healed, you or a caregiver will change your suprapubic catheter at home. What are the risks? This catheter is safe to use. However, problems can occur, including: ? Blocked urine flow. This can occur if the catheter stops working, or if you have a blood clot in your bladder or in the catheter. ? Irritation of the skin around the catheter. ? Infection. This can happen if bacteria gets into your bladder. Supplies needed: ? Two pairs of sterile gloves. ? Paper towels. ? Catheter. ? Two syringes. ? Sterile water. ? Sterile cleaning solution. ? Lubricant. ? Collection bags. How to change the catheter 1. Drink plenty of fluids during the hours before you change the catheter. 2. Wash your hands with soap and water. If soap and water are not available, use hand wastewater plant operator. 3. Draw up sterile water into a syringe to have ready to fill the new catheter balloon. The amount will depend on the size of the balloon. 4. Have all of your supplies ready and close to you on a paper towel. 5. Lie on your back, sitting slightly upright so that you can see the catheter and opening. 6. Put on sterile gloves. 7. Clean the skin around the catheter opening using the sterile cleaning solution. 8. Remove the water from the balloon in the catheter using a syringe. 9. Slowly remove the catheter. If the catheter seems stuck, or if you have difficulty removing it: ? Do not pull on it. ? Call your health care provider right away. 10. Place the old catheter on a paper towel to discard later. 11. Take off the used gloves, and put on a new pair. 12. Put lubricant on the end of the new catheter that will go into your bladder. 13. Clean the skin around the catheter opening using the sterile cleaning solution. 14. Gently slide the catheter through the opening in your abdomen and into the tract that leads to your bladder. 15. Wait for some urine to start flowing through the catheter. 16. When urine starts to flow through the catheter, attach the collection bag to the end of the catheter. Make sure the connection is tight. 17. Use a syringe to fill the catheter balloon with sterile water. Fill to the amount directed by your health care provider. 18. Remove the gloves and wash your hands with soap and water. How to care for the skin around the catheter Follow your health care provider's instructions on caring for your skin. ? Use a clean washcloth and soapy water to clean the skin around your catheter every day. Pat the area dry with a clean paper towel. ? Do not pull on the catheter. ? Do not use ointment or lotion on this area, unless told by your health care provider. ? Check the skin around the catheter every day for signs of infection. Check for: ? Redness, swelling, or pain. ? Fluid or blood. ? Warmth. ? Pus or a bad smell. How to empty and clean the collection bag Empty the large collection bag every 8 hours. Empty the small collection bag when it is about ? full. Clean the collection bag every 2?3 days, or as often as told by your health care provider. To do this: 1. Wash your hands with soap and water. If soap and water are not available, use hand wastewater plant operator. 2. Disconnect the bag from the catheter and immediately attach a new bag to the catheter. 3. Hold the used bag over the toilet or another container. 4. Turn the valve (spigot) at the bottom of the bag to empty the urine. Empty the used bag completely. ? Do not touch the opening of the spigot. ? Do not let the opening touch the toilet or container. 5. Close the spigot tightly when the bag is empty. 6. Clean the used bag in one of the following methods: ? According to the blow off worker's instructions. ? As told by your health care provider. 7. Let the bag dry completely. Put it in a clean plastic bag before storing it. General tips ? Always wa (more content not included)...[facility]12-27-2023 Progress note Author Silvina Turner [facility] Note Date/Time July 28, 2023 9:04[facility] at [address] [address] Hem/Onc Follow Up Note - OP Signed Patient: Alessandra Hardy MR#: [id number] : 1960 Acct:[id number] Age/Sex: 63 / F Type: REG RCR Copies to: [facility] Neva Miller,DO~ Subjective Date/Time of Service: Date of Service: 07/28/2023 Time of Service: 08:36 Chief Complaint: Patient is here for a one year follow up visit for elevated serum immunoglobin free light chain level and go over labs HPI: 07/28/2023: Alessandra presents for 1 year follow-up with labs performed at [facility] on 06/23/2023 due to prior history of elevated kappa and lambda light chain ratio. Changes in her medical history over the last year include postmenopausal bleeding that was evaluated with pelvic ultrasound and biopsy negative for malignancy. About 8 weeks ago she sustained a left tibial fracturewhen attempting to transfer from wheelchair to toilet. She heard a popping noise and had pain. She did not require surgery and is following with Dr. Simmons. She has a longstanding right lower leg ulceration since 2017 which isslow to heal but no recent antibiotics for cellulitis. She notes that she has recurrent left frontal parietal headaches and is scheduled for MRI of the brain 08/12/2023. She is not on any immunosuppressive therapy for multiple sclerosis. No change in functional status over the last year, although does have recent upper respiratory infection for which she is wearing a mask. Laboratories show mildly decreased hemoglobin at 11.3 with normal MCV. Normal white blood cell count and platelets. Normal renal function, quantitative immunoglobulins with IgG 1570 (was 1448 last year), IgA 513, IgM 132. Serum protein electrophoresis was not performed with labs but previously she had no M spike. Urine protein electrophoresis from 06/29/2023 showed no elevation in total protein and no M spike. [place] light chains elevated to 65.6, lambda light chain elevated to 43.1, kappa/lambda light chain ratio 1.52 which is normal. Previous laboratories 1 year ago showed kappa light chain 68.4, lambda light chain 39.9, and kappa/lambda light chain ratio slightly elevated at 1.71. The patient has not had any evidence of monoclonal gammopathy over the last 1-1/2 years and doesnot require routine follow-up with hematology. She has mild anemia with hemoglobin below the lower limit of normal (11.8 hemoglobin is low end of normalrange) but this has previously been normal. There is no indication for bone marrow aspiration and biopsy and given her decreased performance status we wouldnot recommend routine follow-up in hematology unless she had progressive worsening of anemia or renal function. She is in agreement with following up butch as-needed basis. 07/06/2022: Alessandra is here for interval 6 month follow up; last visit with Dr. Turner was on 01/02/2022. No significant changes in health history; she did undergo urethral stent placement with Dr. Allan recently. Otherwise, she denies any issues with headaches, unintentional weight loss, new bony pain, lower extremity edema, fever/chills, recent/recurrent infections, or night sweats. Labs are reviewed; overall stable. 01/03/2022: Minnie was referred for marked elevation of her erythrocyte sedimentation rate. She has known history of multiple sclerosis and chronic erythema over her right anterior lai with nonhealing ulcer for over 5 years. She was noted to have elevated gammaglobulin without observed M spike on serum protein electrophoresis and mild elevation of free kappa/lambda light chain ratio (although noted to have elevation of both free kappa and free lambda lightchains. I completed her work-up for monoclonal gammopathy with laboratories 12/30/2020 showing no evidence of M spike and urine protein electrophoresis and repeat quantitative immunoglobulins showing elevation of both IgG and IgM with mild decline of free kappa from 105 to 68, free lambda from 49 to 33, and prior free kappa/lambda ratio 2.12 to 2.07. 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 At this time, do not feel she warrants bone marrow aspiration or biopsy and may follow-up with hematology on an as-needed basis, but she may be referred again if she has evidence of anemia, hypercalcemia, or worsening renal function. ORIGINAL CONSULT 12/11/2021 This is a now 63-year-old lady who has been residing at [facility] for about 3 years due to poor mobility from multiple sclerosis. She notes that she was diagnosed with MS at the age of 22 and has secondary progressive multiple sclerosis. She reports that she was on Copaxone about 10 years ago and has beenon ABC drugs but no current therapy. She notes chronic leg weakness and that over half of her body is chronically numb due to MS. She has not had any changein her chronic weakness for many years. She has a chronic cellulitis with a nonhealing wound over her right anterior lai since 2016. This area is not painful and she has not been on any active antibiotics. She reports a right ureter compromise and has to chronically uses straight catheterization. She denies any bone pain and does not know of any chronic renal disease. In reviewing recent laboratories, she has an elevated erythrocyte sedimentation rate of 86 but C-reactive protein is normal at 0.8. She does not have any anemia, significant renal dysfunction (eGFR 54), hypercalcemia, or any known bone lesions. She had an elevated gammaglobulin of 2.5 with M spike not observed on serum protein electrophoresis. She had free kappa and free lambda light chain elevations with mildly elevated free kappa/lambda light chain ratio of 2.12 (normal range is 0.26-1.65). I advised the patient that she should have further evaluation with urine proteinelectrophoresis, urine immunofixation, and urine creatinine level to determine if she has evidence of myeloma kidney. I will also repeat her free kappa/lambdalight chain ratio as her last studies were 2 months ago as well as quantitative immunoglobulins IgG, IgM, and IgA. It is likely that her chronic hypogammaglobulinemia with mild kappa/lambda light chain elevation is due to chronic inflammatory state due to her multiple sclerosis. If she has kappa/lambda light chain ratio greater than 5 there may be utility in performingbone marrow aspiration and biopsy, however I would recommend likely every 6-month observation in the absence of significant monoclonal spike, particularly if she does not have any other signs of myeloma such as anemia, renal dysfunction, hypercalcemia, or bone disease. Her neuropathy appears to be chronic and likely unrelated to monoclonal gammopathy or amyloidosis. Patient expressed understanding. 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 No recent weight change. Recent upper respiratory infection as per HPI HEAD AND NECK: Negative for changes in hearing and vision. Negative for mouth ulcers positive for nasal congestion and nasal drainage over the past few days as per HPI. Positive for left frontal parietal headache intermittently pending MRI. PULMONARY: Negative for chest pain, cough and dyspnea. CARDIOVASCULAR: Negative for claudication and irregular heartbeat/palpitations. GASTROINTESTINAL: Negative for abdominal pain, constipation, decreased appetite,diarrhea, nausea or vomiting. GENITOURINARY: Negative for dysuria and hematuria. She does chronically straight cath due to neurologic issues. ENDOCRINE: Negative for cold intolerance and heat intolerance. CENTRAL NERVOUS SYSTEM: Completely dependent for transfers due to chronic numbness and weakness of the lower half of her body due to multiple sclerosis. No headaches or focal neurologic symptoms currently. Stable from baseline. Headaches as noted above. PSYCHIATRIC: Negative for anxiety or depression. DERMATOLOGICAL: Remarkable for chronic erythema overlying her right anterior lai (covered with bandage due to chronic ulcer). Otherwise negative for pruritus and rash. Negative for suspicious skin lesions. MUSCULOSKELETAL: Negative for back pain and recent left tibial fracture 8 weeks ago managed by Dr. Simmons. HEMATOLOGICAL: Negative for bleeding and easy bruising. Negative for history of transfusion or thromboembolic disease ALLERGY: Negative for environmental allergies and food allergies. [facility] [place] - History Attestation statement: The following information was validated with the patient. Source: Old Records Reviewed - Medical History Medical History: Medical History (Last Reviewed 07/28/23 @ 08:56 by Silvina Turner MD) Age-related osteoporosis without current pathological fracture Cellulitis of right lower limb Cognitive communication deficit Congenital mitral stenosis GERD without esophagitis History of falling Major depressive disorder, recurrent, unspecified Multiple sclerosis Muscle weakness (generalized) Neuromuscular dysfunction of bladder, unspecified Other abnormalities of gait and mobility Other seizures history of Personal history of (healed) traumatic fracture Syncope and collapse Transient cerebral ischemic attack, unspecified Unspecified lack of coordination Unsteadiness on feet - Surgical History Surgical History: Surgical History (Last Reviewed 07/28/23 @ 08:56 by Silvina Turner MD) History of orthopedic surgery ankle and thigh surgery History of tonsillectomy History of tubal ligation - Family History Family History: Family History (Last Reviewed 07/28/23 @ 08:56 by Silvina Turner MD) Father Melanoma S/P CABG x 3 Mother Dementia - Social History Smoking Status: Former smoker Tobacco Type: cigarettes Substance Use Type: None Home Medications & Allergies Allergies adhesive tape Allergy (Verified 07/28/23 08:42) Unknown Reaction aspirin Allergy (Verified 07/28/23 08:42) Unknown Reaction Home Medications acetaminophen 500 mg tablet 500 mg PO Q6H PRN Pain 04/23/21 [History Confirmed 07/28/23] artificial tears(olaswav-rpmrlzfh-stfcyns) 0.1 %-0.3 %-0.2 % eye drops 1 drp Eye-Both QID PRN Dry Eyes 04/23/21 [History Confirmed 07/28/23] fludrocortisone 0.1 mg tablet 0.1 mg PO DAILY cellulitis 04/23/21 [History Confirmed 07/28/23] lamotrigine 100 mg tablet 100 mg PO BID seizures 04/23/21 [History Confirmed 07/28/23] nortriptyline 10 mg capsule 20 mg PO DAILY 04/23/21 [History Confirmed 07/28/23] pantoprazole 40 mg tablet,delayed release 20 mg PO DAILY 04/23/21 [History Confirmed 07/28/23] cholecalciferol (vitamin D3) 25 mcg (1,000 unit) tablet (Vitamin D3) 25 mcg PO DAILY 12/11/21 [History Confirmed 07/28/23] eucalyptus oil-aloe extr-lavender,janett oil-petrolatum top ointment (Vicks Babyrub topical ointment) 1 applic topical DIRECTED PRN Congestion 12/11/21 [History Confirmed 07/28/23] menthol 3.2 mg lozenges 3.2 mg PO DIRECTED 05/12/22 [History Confirmed 07/28/23] miconazole nitrate 2 % topical powder (Micro-Guard) 1 applic topical TID PRN excoriation to abd folds 05/12/22 [History Confirmed 07/28/23] mirabegron 25 mg tablet,extended release 24 hr (Myrbetriq) 25 mg PO DAILY 05/12/22 [History Confirmed 07/28/23] tacrolimus 0.1 % topical ointment (Protopic) 1 applic topical QHS non healing wound 05/12/22 [History Confirmed 07/28/23] fluoxetine 10 mg capsule (Prozac) 10 mg PO DAILY 05/26/22 [History Confirmed 07/28/23] pneumoc 20-gilda conj-dip cr(PF) 0.5 mL IM syringe (Prevnar 20 (PF)) 0.5 ml IM QHS05/26/22 [History Confirmed 07/28/23] bisacodyl 10 mg rectal suppository 10 mg PA DAILY 07/28/23 [History Confirmed 07/28/23] magnesium hydroxide 400 mg/5 mL oral suspension (Milk of Magnesia) 400 mg PO DAILY 07/28/23 [History Confirmed 07/28/23] terbinafine HCl 1 % topical cream 1 applic topical BID 07/28/23 [History Confirmed 07/28/23] Objective - Height/Weight Height/Weight: Height 5 ft 9 in Weight 106.594 kg - Vital Signs Vital Signs: 07/28/23 08:32 Temperature 97.8 F Pulse Rate [Left Brachial] 93 H Respiratory Rate 16 Blood Pressure [Right Arm] 130/83 02 Sat by Pulse Oximetry 96 Oxygen Delivery Method Room Air - Pain Abdomen Pain Intensity: 0 Physical Exam Narrative: CONSTITUTIONAL: The patient is in no acute distress. HEAD / FACE: Normocephalic. NOSE / MOUTH / THROAT: Nose, mouth, tongue and oropharynx exam was deferred due to recent respiratory infection. NECK / THYROID: Neck is supple. Thyroid is symmetrical, without thyromegaly, masses or palpable nodules. LYMPHATIC: No palpable cervical, supraclavicular, axillary, or inguinal adenopathy. RESPIRATORY: Normal to inspection. Lungs clear to auscultation and percussion. No wheezing, rales, rhonchi or rubs. Normal effort. CARDIOVASCULAR: Regular rate and rhythm. No murmurs, gallops, or rubs. VASCULAR: Carotid, radial, femoral and pedal pulses present bilaterally. No bruits. ABDOMEN: Bowel sounds normoactive. Soft, nontender and non-distended. No hepatosplenomegaly. No masses. GENITOURINARY: No CVA tenderness. No suprapubic fullness or tenderness. No groinadenopathy. No evidence of hernias. INTEGUMENTARY: The skin is remarkable for stable diffuse erythema overlying the right anterior lai (bandage was not removed to examine chronic ulcer). No rashes. No suspicious lesions for malignancy. BACK / SPINE: The back is nontender. MUSCULOSKELETAL: Normal musculature, range of motion testing was not performed due to recent right tibial fracture, followed by orthopedic surgery. EXTREMITIES: No edema, cyanosis or clubbing. No Doug sign. + chronic right shinnon healing wound; bandaid in place; improved per patient. NEUROLOGICAL: Alert and oriented. Cranial nerves intact. She has motor weaknessand sensory deficits lower half of body consistent with her known multiple sclerosis. No speech deficits. - ECOG Performance Status ECOG Score: 3 Results - Labs Labs: 06/23/2023: Glucose 87, sodium 140, potassium 4.1, BUN 12, creatinine 0.7, EGFR 85, calcium 8.5, total protein 6.4, albumin 3.1, total bilirubin 0.4, AST 13, ALT 7, alkaline phosphatase 92 White blood cells 7100, hemoglobin 11.3, hematocrit 34.6, MCV 91.3, RDW 13.9 (normal), platelet count 320,000, absolute neutrophil count 4800 [place] light chains 65.6, lambda light chains 43.1, kappa/lambda light chain ratio 1.52 06/29/2023 at [facility]: Urine protein electrophoresis with no M spike, normal spot protein and albumin - Impressions Date of Service: 06/08/23 CT/CT abdomen pelvis w con: LLQ PAIN CT ABDOMEN AND PELVIS WITH CONTRAST COMPARISON: 11/21/2022 CLINICAL DATA: Left lower quadrant pain for the past few months, gas and bloating. Spiral images were obtained through the abdomen and pelvis following oral and 90mL Isovue-300. This CT exam was performed using one or more following dose reduction techniques: Automated exposure control, adjustment of the mA and/or kVaccording to patient size, or use of iterative reconstruction technique. Limited cuts through the lung bases show slight elevation right hemidiaphragm. There is mild atelectasis and/or scarring. There is fatty infiltration of the liver. No calcified gallstones are noted. The spleen, pancreas and adrenal glands show no acute findings. There are bilateral symmetric renal nephrograms, without hydronephrosis. There is a smallstone at the lower pole of the left kidney which is new since the comparison. There are extrarenal pelves. On the left , there appears to be urothelial thickening which is also seen at the time of the prior. No ureteral stones are present. There is mild atherosclerotic plaque at the aorta. No enlarged lymph nodes or ascites are seen. The small bowel loops are not distended. There is stool within the colon as well as some under distended segments with apparent wall thickening. No appendiceal inflammation is seen. There is slight levoscolioticcurvature and mild degenerative changes involving the spine. There are thoraciccompression fractures with prior kyphoplasty, also seen on the comparison. Images through the pelvis show normal caliber small bowel loops. There is air and stool at the distal colon. No diverticular disease is noted. Uterus is slightly dextroverted. No adnexal cysts are seen. The urinary bladder containsa Poole catheter and is not adequately distended for assessment. There are small benign-appearing inguinal lymph nodes. There is no ascites. Patient has a right dynamic hip screw CT/CT abdomen pelvis w con IMPRESSION: FATTY LIVER. NO BOWEL OR URINARY TRACT OBSTRUCTION. LEFT NEPHROLITHIASIS. CONTINUED LEFT UROTHELIAL THICKENING. THIS COULD INDICATE INFECTION. CORRELATION IS RECOMMENDED. NO OTHER ACUTE FINDINGS. Impression dictated by: Marisa Álvarez M.D.06/08/2023 1:15 PM Pelvic ultrasound. Reason for exam: Abnormal CT Comparison: CT abdomen and pelvis 11/21/2022 Technique: Transabdominal imaging of the uterus and ovaries was performed. Transvaginal imaging of the uterus and ovaries was also obtained. Additional spectral Doppler analysis of the ovaries was also obtained. Findings: Uterus measures 7.6 x 3.5 x 4.7 cm. No measurable fibroid is seen. Theendometrium appears abnormally thickened measuring 11 mm for a postmenopausal female. Ovaries not visualized. No free fluid. US/US pelvic limited Impression: Abnormal thickening of the endometrium. Endometrial sampling should be considered. Impression dictated by: Ihsan Rosales Jr., D.O.12/02/2022 2:39 PM Assessment and Plan (1) Elevated serum immunoglobulin free light chain level This is a now 63-year-old lady who resides in a nursing facility due to diagnosis of secondary progressive multiple sclerosis (diagnosed at age 22, no active therapy reported for the last 12 years). She has chronic neuropathy which has not recently progressed. She also has a chronic nonhealing ulcerated lesion of the right anterior lai. She had recent serum protein electrophoresiswhich did not show any serum M spike but kappa/lambda light chain analysis showed elevation of both light chain populations with ratio 2. Typically activemyeloma is associated with light chain ratio is at least greater than 5-10, and is likely that this mild increase of kappa/lambda light chain ratio is due to her chronic inflammatory state either from multiple sclerosis or her chronic nonhealing ulcer. In addition she did have a recent erythrocyte sedimentation rate that was significantly elevated to 83. She does have chronic urinary retention issues and performs rtog-dikjkhckrajzuer0-9 times daily. She does not have any anemia, worsening renal function, or hypercalcemia. I recommended sending urine protein electrophoresis with urine immunofixation and urine creatinine to calculate whether she has proteinuria or if she has a urine light chain monoclonality. If significant urinary light chain monoclonality is identified or repeat kappa/lambda light chain ratio showssignificant progression of serum light chains, she may benefit from bone marrow aspiration and biopsy to determine if she has progression to myeloma. If all ofthis work-up is negative and she only has a mildly elevated urine kappa/lambda light chain ratio without evidence of monoclonality, there is no benefit in performing bone marrow biopsy and likely no utility in routine monitoring of herkappa/lambda light chains. I explained this to her in detail and will follow-upwith her for in person or phone visit in about 3 weeks to review results and further follow-up recommendations. She expressed understanding over this moderate complexity 60-minute visit. 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 Elevation ofIgG and IgM gammaglobulins more likely related to her multiple sclerosis and shehad a decline of both free kappa, free lambda light chains as well as kappa/lambda light chain ratio over the last 2 months. As there is no evidence of monoclonal gammopathy, I do not recommend routinely following serum or urine. 07/06/2022: Here for interval 6-month follow-up from outside nursing facility. Patient reports no new issues since last visit. Particularly denies any issues with new bony pain, shortness of breath, increasing fatigue, chest pain or cough. Labs are reviewed. No evidence of monoclonality on urine immunofixation; no evidence of worsening anemia or hypercalcemia. [place] lambda light chains are stable; kappa lambda ratio has actually improved as compared topfrench campr studies at 1.7. -Due to stability of labs and symptoms and no evidence of monoclonal gammopathy;we discussed following up as needed versus annual follow-up. Patient would prefer annual surveillance. -Follow-up in 1 year with same laboratories, sooner if worsening anemia, hypercalcemia or new bony pain. 07/28/2023: Alessandra presents for 1 year follow-up with laboratories ordered by nurse practitioner last year. She continues to show no evidence of monoclonality on urine immunofixation and kappa/lambda light chain ratio is now normal. Serum kappa and lambda are both elevated as would be expected with her known inflammatory condition of multiple sclerosis. In addition she has elevation of IgG gammaglobulin likely related to multiple sclerosis. She did not have serum protein electrophoresis ordered but this has been negative for M spike in the past. She has mild anemia with hemoglobin 11.3, normocytic with normal RDW therefore nutritional deficiency is less likely. This may be somewhat suppressed due to her recent upper respiratory infection. She has normal renal function and normal calcium. She did sustain a tibial fracture after trauma which is unlikely to be related to any monoclonality. I recommended that she should follow-up in hematology on an as-needed basis if worsening anemia, renal function, hypercalcemia, or evidence of pathologic fracture. She is in agreement with this plan over this moderate complexity 30-minute follow-up for discussion of complex laboratory results and indications for further hematology follow-up. (2) Secondary progressive multiple sclerosis Currently resides at a intermediate and no active therapy at this time but followed by neurology. She denies any recent worsening of neurologic symptoms. She does have intermittent headaches and will be evaluated with MRI of the brainin early August 2023. (3) Paraparesis of both lower limbs Chronic paraparesis of lower limbs secondary to MS. (4) Nonhealing ulcer of right lower extremity Qualifiers: Non-pressure ulcer stage: unspecified non-pressure ulcer stage Qualified Code(s): L97.919 - Non-pressure chronic ulcer of unspecified part of right lowerleg with unspecified severity Patient reports chronic nonhealing ulcer, not examined today. Defer to chronic wound care nurse at her facility. - improved as compared to baseline per patient. - Time with Patient Time Spent with Patient (Follow Up Visit): 35 minutes Coordination of Care & Counseling Time: Greater than 50% of time spent with patient was for coordination of care (as documented) and [id number] counseling of patient and/or family. Dictated By: Silvina Turner MD DD/ 5 Signed By: <Electronically signed by MD Silvina Turner> 07/28/2304 [facility] Work Phone: [phone]) 147-301112-27-2023 [facility] [place] [address] Hem/Onc Follow Up Note - OP Signed Patient: Alessandra Hardy MR#: [id number] : 1960 Acct:[id number] Age/Sex: 63 / F Type: REG RCR Copies to: [facility] Neva Miller DO~ Subjective Date/Time of Service: Date of Service: 07/28/2023 Time of Service: 08:36 Chief Complaint: Patient is here for a one year follow up visit for elevated serum immunoglobin free light chain level and go over labs HPI: 07/28/2023: Alessandra presents for 1 year follow-up with labs performed at [facility] on 3due to prior history of elevated kappa and lambda light chain ratio. Changes in her medical historyover the last year include postmenopausal bleeding that was evaluated with pelvic ultrasound and biopsy negative for malignancy. About 8 weeks ago she sustained a left tibial fracturewhen attempting to transfer from wheelchair to toilet. She heard a popping noise and had pain. She did not require surgery and is following with Dr. Simmons. She has a longstanding right lower leg ulceration since 2017 which isslow to heal but no recent antibiotics for cellulitis. She notes that she has recurrent left frontal parietal headaches and is scheduled for MRI of the brain 08/12/2023. She is not on any immunosuppressive therapy for multiple sclerosis. No change in functional status over the last year, although does have recent upper respiratory infection for which she is wearing a mask. Laboratories show mildly decreased hemoglobin at 11.3 with normal MCV. Normal white blood cell count and platelets. Normal renal function, quantitative immunoglobulins with IgG 1570 (was 1448 last year), IgA 513, IgM 132. Serum protein electrophoresis was not performed with labs but previously she had no M spike. Urine protein electrophoresis from 06/29/2023 showed no elevation in total protein and no M spike.[place] light chains elevated to 65.6, lambda light chain elevated to 43.1, kappa/lambda light chain ratio 1.52 which is normal. Previous laboratories 1 year ago showed kappa light chain 68.4, lambda light chain 39.9, and kappa/lambda light chain ratio slightly elevated at 1.71. The patient has not linda d any evidence of monoclonal gammopathy over the last 1-1/2 years and doesnot require routine follow-up with hematology. She has mild anemia with hemoglobin below the lower limit of normal (11.8 hemoglobin is low end of normalrange) but this has previously been normal. There is no indication for bone marrow aspiration and biopsy and given her decreased performance status we wouldnot recommend routine follow-up in hematology unless she had progressive worsening of anemia or renal function. She is in agreement with following up butch as- needed basis. 07/06/2022: Alessandra is here for interval 6 month follow up; last visit with Dr. Turner was on 01/02/2022. No significant changes in health history; she did undergo urethral stent placement with Dr. Allan recently. Otherwise, she denies any issues with headaches, unintentional weight loss, new bony pain, lower extremity edema, fever/chills, recent/recurrent infections, or night sweats. Labs are reviewed; overall stable. 01/03/2022: Minnie was referred for marked elevation of her erythrocyte sedimentation rate. She hasknown history of multiple sclerosis and chronic erythema over her right anterior lai with nonhealing ulcer for over 5 years. She was noted to have elevated gammaglobulin without observed M spike on serum protein electrophoresis and mild elevation of free kappa/lambda light chain ratio (although noted to have elevation of both free kappa and free lambda lightchains. I completed her work-up for monoclonal gammopathy with laboratories 12/30/2020 showing no evidence of M spike and urine protein electrophoresis and repeat quantitative immunoglobulins showing elevation of both IgG and IgM with milddecline of free kappa from 105 to 68, free lambda from 49 to 33, and prior free kappa/lambda ratio 2.12 to 2.07. 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 At this time, do not feel she warrants bone marrow aspiration or biopsy and may follow-up with hematology on an as-needed basis, but she may be referred again if she has evidence of anemia, hypercalcemia, or worsening renal function. ORIGINAL CONSULT 12/11/2021 This is a now 63-year-old lady who has been residing at [facility] for about 3 years due to poor mobility from multiple sclerosis. She notes that she was diagnosed with MS at the age of 22 and has secondary progressive multiple sclerosis. She reports that she was on Copaxone about 10 years ago andhas beenon ABC drugs but no current therapy. She notes chronic leg weakness and that over half ofher body is chronically numb due to MS. She has not had any changein her chronic weakness for many years. She has a chronic cellulitis with a nonhealing wound over her right anterior lai since 2016.This area is not painful and she has not been on any active antibiotics. She reports a right ureter compromise and has to chronically uses straight catheterization. She denies any bone pain and does not know of any chronic renal disease. In reviewing recent laboratories, she has an elevated erythrocyte sedimentation rate of 86 but C- reactive protein is normal at 0.8. She does not have any anemia, significant renal dysfunction (eGFR 54), hypercalcemia, or any known bone lesions. She had an elevated gammaglobulin of 2.5 with M spike not observed on serum protein electrophoresis. She had free kappa and free lambda light chain elevations with mildly elevated free kappa/lambda light chain ratio of 2.12 (normal range is 0.26-1.65). I advised the patient that she should have further evaluation with urine proteinelectrophoresis, urine immunofixation, and urine creatinine level to determine if she has evidence of myeloma kidney. Edi also repeat her free kappa/lambdalight chain ratio as her last studies were 2 months ago as well as quantitative immunoglobulins IgG, IgM, and IgA. It is likely that her chronic hypogammaglobulinemia with mild kappa/lambda light chain elevation is due to chronic inflammatory state due to her multiple sclerosis. If she has kappa/lambda light chain ratio greater than 5 there may be utility in p erformingbone marrow aspiration and biopsy, however I would recommend likely every 6-month observation in the absence of significant monoclonal spike, particularly if she does not have any other signs of myeloma such as anemia, renal dysfunction, hypercalcemia, or bone disease. Her neuropathy appears to be chronic and likely unrelated to monoclonal gammopathy or amyloidosis. Patient expressed understanding. 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 No recent weight change. Recent upper respiratory infection as per HPI HEAD AND NECK: Negative for changes in hearing and vision. Negative for mouth ulcers positive for nasal congestion and nasal drainage over the past few days as per HPI. Positive for left frontal parietal headache intermittently pending MRI. PULMONARY: Negative for chest pain, cough and dyspnea. CARDIOVASCULAR: Negative for claudication and irregular heartbeat/palpitations. GASTROINTESTINAL: Negative for abdominal pain, constipation, decreased appetite,diarrhea, nausea orvomiting. GENITOURINARY: Negative for dysuria and hematuria. She does chronically straight cath due to neurologic issues. ENDOCRINE: Negative for cold intolerance and heat intolerance. CENTRAL NERVOUS SYSTEM: Completely dependent for transfers due to chronic numbness and weakness of the lower half of her body due to multiple sclerosis. No headaches or focal neurologic symptoms currently. Stable from baseline. Headaches as noted above. PSYCHIATRIC: Negative for anxiety or depression. DERMATOLOGICAL: Remarkable for chronic erythema overlying her right anterior lai (covered with bandage due to chronic ulcer). Otherwise negative for pruritus and rash. Negative for suspicious skin lesions. MUSCULOSKELETAL: Negative for back pain and recent left tibial fracture 8 weeks ago managed by Dr. Simmons. HEMATOLOGICAL: Negative for bleeding and easy bruising. Negative for history of transfusion or thromboembolic disease ALLERGY: Negative for environmental allergies and food allergies. [facility] [place] - History Attestation statement: The following information was validated with the patient. Source: Old Records Reviewed - Medical History Medical History: Medical History (Last Reviewed 07/28/23 @ 08:56 by Silvina Turner MD) Age-related osteoporosis without current pathological fracture Cellulitis of right lower limb Cognitive communication deficit Congenital mitral stenosis GERD without esophagitis History of falling Major depressive disorder, recurrent, unspecified Multiple sclerosis Muscle weakness (generalized) Neuromuscular dysfunction of bladder, unspecified Other abnormalities of gait and mobility Other seizures history of Personal history of (healed) traumatic fracture Syncope and collapse Transient cerebral ischemic attack, unspecified Unspecified lack of coordination Unsteadiness on feet - Surgical History Surgical History: Surgical History (Last Reviewed 07/28/23 @ 08:56 by Silvina Turner MD) History of orthopedic surgery ankle and thigh surgery History of tonsillectomy History of tubal ligation - Family History Family History: Family History (Last Reviewed 07/28/23 @ 08:56 by Silvina Turner MD) Father Melanoma S/P CABG x 3 Mother Dementia - Social History Smoking Status: Former smoker Tobacco Type: cigarettes Substance Use Type: None Home Medications & Allergies Allergies adhesive tape Allergy (Verified 07/28/23 08:42) Unknown Reaction aspirin Allergy (Verified 07/28/23 08:42) Unknown Reaction Home Medications acetaminophen 500 mg tablet 500 mg PO Q6H PRN Pain 04/23/21 [History Confirmed 07/28/23] artificial tears(lmgrgdg-[id number]-qgduktc) 0.1 %-0.3 %-0.2 % eye drops 1 drp Eye-Both QID PRN Dry Eyes 04/23/21 [History Confirmed 07/28/23] fludrocortisone 0.1 mg tablet 0.1 mg PO DAILY cellulitis 04/23/21 [History Confirmed 07/28/23] lamotrigine 100 mg tablet 100 mg PO BID seizures 04/23/21 [History Confirmed 07/28/23] nortriptyline 10 mg capsule 20 mg PO DAILY 04/23/21 [History Confirmed 07/28/23] pantoprazole 40 mg tablet,delayed release 20 mg PO DAILY 04/23/21 [History Confirmed 07/28/23] cholecalciferol (vitamin D3) 25 mcg (1,000 unit) tablet (Vitamin D3) 25 mcg PO DAILY 12/11/21 [History Confirmed 07/28/23] eucalyptus oil-aloe extr-lavender,janett oil-petrolatum top ointment (Vicks Babyrub topical ointment) 1 applic topical DIRECTED PRN Congestion 12/11/21 [History Confirmed 07/28/23] menthol 3.2 mg lozenges 3.2 mg PO DIRECTED 05/12/22 [History Confirmed 07/28/23] miconazole nitrate 2 % topical powder (Micro-Guard) 1 applic topical TID PRN excoriation to abd folds 05/12/22 [History Confirmed 07/28/23] mirabegron 25 mg tablet,extended release 24 hr (Myrbetriq) 25 mg PO DAILY 05/12/22 [History Confirmed 07/28/23] tacrolimus 0.1 % topical ointment (Protopic) 1 applic topical QHS non healing wound 05/12/22 [History Confirmed 07/28/23] fluoxetine 10 mg capsule (Prozac) 10 mg PO DAILY 05/26/22 [History Confirmed 07/28/23] pneumoc 20-gilda conj-dip cr(PF) 0.5 mL IM syringe (Prevnar 20 (PF)) 0.5 ml IM QHS05/26/22 [History Confirmed 07/28/23] bisacodyl 10 mg rectal suppository 10 mg PA DAILY 07/28/23 [History Confirmed 07/28/23] magnesium hydroxide 400 mg/5 mL oral suspension (Milk of Magnesia) 400 mg PO DAILY 07/28/23 [History Confirmed 07/28/23] terbinafine HCl 1 % topical cream 1 applic topical BID 07/28/23 [History Confirmed 07/28/23] Objective - Height/Weight Height/Weight: Height 5 ft 9 in Weight 106.594 kg - Vital Signs Vital Signs: 07/28/23 08:32 Temperature 97.8 F Pulse Rate [Left Brachial] 93 H Respiratory Rate 16 Blood Pressure [Right Arm] 130/83 02 Sat by Pulse Oximetry 96 Oxygen Delivery Method Room Air - Pain Abdomen Pain Intensity: 0 Physical Exam Narrative: CONSTITUTIONAL: The patient is in no acute distress. HEAD / FACE: Normocephalic. NOSE / MOUTH / THROAT: Nose, mouth, tongue and oropharynx exam was deferred due to recent respiratory infection. NECK / THYROID: Neck is supple. Thyroid is symmetrical, without thyromegaly, masses or palpable nodules. LYMPHATIC: No palpable cervical, supraclavicular, axillary, or inguinal adenopathy. RESPIRATORY: Normal to inspection. Lungs clear to auscultation and percussion. No wheezing, rales, rhonchi or rubs. Normal effort. CARDIOVASCULAR: Regular rate and rhythm. No murmurs, gallops, or rubs. VASCULAR: Carotid, radial, femoral and pedal pulses present bilaterally. No bruits. ABDOMEN: Bowel sounds normoactive. Soft, nontender and non-distended. No hepatosplenomegaly. No masses. GENITOURINARY: No CVA tenderness. No suprapubic fullness or tenderness. No groinadenopathy. No evidence of hernias. INTEGUMENTARY: The skin is remarkable for stable diffuse erythema overlying the right anterior lai(bandage was not removed to examine chronic ulcer). No rashes. No suspicious lesions for malignancy. BACK / SPINE: The back is nontender. MUSCULOSKELETAL: Normal musculature, range of motion testing was not performed due to recent right tibial fracture, followed by orthopedic surgery. EXTREMITIES: No edema, cyanosis or clubbing. No Doug sign. + chronic right shinnon healing wound; bandaid in place; improved per patient. NEUROLOGICAL: Alert and oriented. Cranial nerves intact. She has motor weaknessand sensory deficitslower half of body consistent with her known multiple sclerosis. No speech deficits. - ECOG Performance Status ECOG Score: 3 Results - Labs Labs: 06/23/2023: Glucose 87, sodium 140, potassium 4.1, BUN 12, creatinine 0.7, EGFR 85, calcium 8.5, total protein 6.4, albumin 3.1, total bilirubin 0.4, AST 13, ALT 7, alkaline phosphatase 92 White blood cells 7100, hemoglobin 11.3, hematocrit 34.6, MCV 91.3, RDW 13.9 (normal), platelet count 320,000, absolute neutrophil count 4800 [place] light chains 65.6, lambda light chains 43.1, kappa/lambda light chain ratio 1.52 06/29/2023 at [facility]: Urine protein electrophoresis with no M spike, normal spot protein and albumin - Impressions Date of Service: 06/08/23 CT/CT abdomen pelvis w con: LLQ PAIN CT ABDOMEN AND PELVIS WITH CONTRAST COMPARISON: 11/21/2022 CLINICAL DATA: Left lower quadrant pain for the past few months, gas and bloating. Spiral images were obtained through the abdomen and pelvis following oral and 90mL Isovue-300. ThisCT exam was performed using one or more following dose reduction techniques: Automated exposure control, adjustment of the mA and/or kVaccording to patient size, or use of iterative reconstruction technique. Limited cuts through the lung bases show slight elevation right hemidiaphragm. There is mild atelectasis and/or scarring. There is fatty infiltration of the liver. No calcified gallstones are noted. The spleen, pancreas and adrenal glands show no acute findings. There are bilateral symmetric renal nephrograms, without hydronephrosis. There is a smallstone at the lower pole of the left kidney which is new since the comparison. There are extrarenal pelves. On the left , there appears to be urothelial thickening which is also seen at the time of the prior. No ureteral stones are present. There is mild atherosclerotic plaque at the aorta. No enlarged lymph nodes or ascites are seen. Thesmall bowel loops are not distended. There is stool within the colon as well as some under distended segments with apparent wall thickening. No appendiceal inflammation is seen. There is slight levosc olioticcurvature and mild degenerative changes involving the spine. There are thoraciccompression fractures with prior kyphoplasty, also seen on the comparison. Images through the pelvis show normal caliber small bowel loops. There is air and stool at the distal colon. No diverticular disease is noted. Uterus is slightly dextroverted. No adnexal cysts are seen. The urinary bladder containsa Poole catheter and is not adequately distended for assessment. There are small benign-appearing inguinal lymph nodes. There is no ascites. Patient has a right dynamichip screw CT/CT abdomen pelvis w con IMPRESSION: FATTY LIVER. NO BOWEL OR URINARY TRACT OBSTRUCTION. LEFT NEPHROLITHIASIS. CONTINUED LEFT UROTHELIAL THICKENING. THIS COULD INDICATE INFECTION. CORRELATION IS RECOMMENDED. NO OTHER ACUTE FINDINGS. Impression dictated by: Marisa Álvarez M.D.06/08/2023 1:15 PM Pelvic ultrasound. Reason for exam: Abnormal CT Comparison: CT abdomen and pelvis 11/21/2022 Technique: Transabdominal imaging of the uterus and ovaries was performed. Transvaginal imaging of the uterus and ovaries was also obtained. Additional spectral Doppler analysis of the ovaries was also obtained. Findings: Uterus measures 7.6 x 3.5 x 4.7 cm. No measurable fibroid is seen. Theendometrium appearsabnormally thickened measuring 11 mm for a postmenopausal female. Ovaries not visualized. No free fluid. US/US pelvic limited Impression: Abnormal thickening of the endometrium. Endometrial sampling should be considered. Impression dictated by: Ihsan Rosales Jr., Sharmila.OFarhana12/02/2022 2:39 PM Assessment and Plan (1) Elevated serum immunoglobulin free light chain level This is a now 63-year-old lady who resides in a nursing facility due to diagnosis of secondary progressive multiple sclerosis (diagnosed at age 22, no active therapy reported for the last 12 years). She has chronic neuropathy which has not recently progressed. She also has a chronic nonhealing ulcerated lesion of the right anterior lai. She had recent serum protein electrophoresiswhich did not show any serum M spike but kappa/lambda light chain analysis showed elevation of both light chain populations with ratio 2. Typically activemyeloma is associated with light chain ratio is at least greater than 5-10, and is likely that this mild increase of kappa/lambda light chain ratio is due to her chronic inflammatory state either from multiple sclerosis or her chronic nonhealing ulcer. In addition she did have a recent erythrocyte sedimentation rate that was significantly elevated to 83. She does have chronic urinary retention issues and performs brao-ysyaeuhfckrypdm5-1 times daily. She does not have any anemia, worsening renal function, or hypercalcemia. I recommended sending urine protein electrophoresis with urine immunofixation and urine creatinine to calculate whether she has proteinuria or if she has a urine light chain monoclonality. If significant urinary light chain monoclonality is identified or repeat kappa/lambda light chain ratio showssignificant progression of serum light chains, she may benefit from bone marrow aspiration and biopsy to determine if she has progression to myeloma. If all ofthis work-up is negative and she only has a mildly elevated urine kappa/lambda light chain ratio without evidence of monoclonality, there is no benefit in performing bone marrow biopsy and likely no utility in routine monitoring of herkappa/lambda light chains. I explained this to her in detail and will follow-upwith her for in person or phone visit in about 3 weeks toreview results and further follow-up recommendations. She expressed understanding over this moderate complexity 60-minute visit. 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 Elevation ofIgG and IgM gammaglobulins more likely related to her multiple sclerosis and shehad a decline of both free kappa, free lambda light chains as well as kappa/lambda light chain ratio over the last 2 months. As there is no evidence of monoclonal gammopathy, I do not recommend routinely following serum or urine. 07/06/2022: Here for interval 6-month follow-up from outside nursing facility. Patient reports no new issues since last visit. Particularly denies any issues with new bony pain, shortness of breath, increasing fatigue, chest pain or cough. Labs are reviewed. No evidence of monoclonality on urine immunofixation; no evidence of worsening anemia or hypercalcemia. [place] lambda light chains are stable;kappa lambda ratio has actually improved as compared topfrench campr studies at 1.7. -Due to stability of labs and symptoms and no evidence of monoclonal gammopathy;we discussed following up as needed versus annual follow-up. Patient would prefer annual surveillance. -Follow-up in 1 year with same laboratories, sooner if worsening anemia, hypercalcemia or new bony pain. 07/28/2023: Alessandra presents for 1 year follow-up with laboratories ordered by nurse practitioner last year. She continues to show no evidence of monoclonality on urine immunofixation and kappa/lambda light chain ratio is now normal. Serum kappa and lambda are both elevated as would be expected with her known inflammatory condition of multiple sclerosis. In addition she has elevation of IgG gammaglobulin likely related to multiple sclerosis. She did not have serum protein electrophoresis ordered but this has been negative for M spike in the past. She has mild anemia with hemoglobin 11.3, normocytic with normal RDW therefore nutritional deficiency is less likely. This may be somewhat suppressed due to her recent upper respiratory infection. She has normal renal function and normal calcium. She did sustain a tibial fracture after trauma which is unlikely to be related to any monoclonality. I recommended that she should follow-up in hematology on an as-needed basis if worsening anemia, renal function, hypercalcemia, or evidence of pathologic fracture. She is in agreement with this plan over this moderate complexity 30-minute follow-up for discussion of complex laboratory results andindications for further hematology follow-up. (2) Secondary progressive multiple sclerosis Currently resides at a intermediate and no active therapy at this time but followed by neurology. She denies any recent worsening of neurologic symptoms. She does have intermittent headaches and will be evaluated with MRI of the brainin early August 2023. (3) Paraparesis of both lower limbs Chronic paraparesis of lower limbs secondary to MS. (4) Nonhealing ulcer of right lower extremity Qualifiers: Non-pressure ulcer stage: unspecified non-pressure ulcer stage Qualified Code(s): L97.919 - Non-pressure chronic ulcer of unspecified part of right lowerleg with unspecified severity Patient reports chronic nonhealing ulcer, not examined today. Defer to chronic wound care nurse at her facility. - improved as compared to baseline per patient. - Time with Patient Time Spent with Patient (Follow Up Visit): 35 minutes Coordination of Care & Counseling Time: Greater than 50% of time spent with patient was for coordination of care (as documented) and zaqz-[id number]-haed counseling of patient and/or family. Dictated By: Silvina Turner MD DD/ [id number] Signed By: 07/28/23 0904 [facility]04-22-2023 Hospital Discharge instructions Additional Instructions Your CAT scan showed some mild hydronephrosis on the kidneys and a question of pyelonephritis with urinary tract infections he has been given 10 days of antibiotics. But the presentation included postmenopausal vaginal bleeding. This needs further work-up with an ultrasound of the uterus which we do not have available on the weekends at night you have been given a prescription for an outpatient pelvic ultrasound and then please follow-up with [facility] for endometrial cancer work-up is very important if you have any questions please return or call the ER.[facility] Work Phone: [phone] Hospital Discharge instructions Patient Education 09/15/2022 12:53:45 Overactive Bladder, Adult Overactive Bladder, Adult Overactive bladder refers to a condition in which a person has a sudden need to pass urine. The person may leak urine if he or she cannot get to the bathroom fast enough (urinary incontinence). A person with this condition may also wake up several times in the night to go to the bathroom. Overactive bladder is associated with poor nerve signals between your bladder and your brain. Your bladder may get the signal to empty before it is full. You may also have very sensitive muscles thatmake your bladder squeeze too soon. These symptoms might interfere with daily work or social activities. What are the causes? This condition may be associated with or caused by: Urinary tract infection. Infection of nearby tissues, such as the prostate. Prostate enlargement. Surgery on the uterus or urethra. Bladder stones, inflammation, or tumors. Drinking too much caffeine or alcohol. Certain medicines, especially medicines that get rid of extra fluid in the body (diuretics). Muscle or nerve weakness, especially from: ?A spinal cord injury. ?Stroke. ?Multiple sclerosis. ?Parkinson's disease. Diabetes. Constipation. What increases the risk? You may be at greater risk for overactive bladder if you: Are an older adult. Smoke. Are going through menopause. Have prostate problems. Have a neurological disease, such as stroke, dementia, Parkinson's disease, or multiple sclerosis (MS). Eat or drink things that irritate the bladder. These include alcohol, spicy food, and caffeine. Are overweight or obese. What are the signs or symptoms? Symptoms of this condition include: Sudden, strong urge to urinate. Leaking urine. Urinating 8 or more times a day. Waking up to urinate 2 or more times a night. How is this diagnosed? Your health care provider may suspect overactive bladder based on your symptoms. He or she will diagnose this condition by: A physical exam and medical history. Blood or urine tests. You might need bladder or urine tests to help determine what is causing your overactive bladder. You might also need to see a health care provider who specializes in urinary tract problems (urologist). How is this treated? Treatment for overactive bladder depends on the cause of your condition and whether it is mild or severe. You can also make lifestyle changes at home. Options include: Bladder training. This may include: ?Learning to control the urge to urinate by following a schedule that directs you to urinate at regular intervals (timed voiding). ?Doing Kegel exercises to strengthen your pelvic floor muscles, which support your bladder. Toning these muscles can help you control urination, even if your bladder muscles are overactive. Special devices. This may include: ?Biofeedback, which uses sensors to help you become aware of your body's signals. ?Electrical stimulation, which uses electrodes placed inside the body (implanted) or outside the body. These electrodes send gentle pulses of electricity to strengthen the nerves or muscles that control the bladder. ?Women may use a plastic device that fits into the vagina and supports the bladder (pessary). Medicines. ?Antibiotics to treat bladder infection. ?Antispasmodics to stop the bladder from releasing urine at the wrong time. ?Tricyclic antidepressants to relax bladder muscles. ?Injections of botulinum toxin type A directly into the bladder tissue to relax bladder muscles. Lifestyle changes. This may include: ?Weight loss. Talk to your health care provider about weight loss methods that would work best for you. ?Diet changes. This may include reducing how much alcohol and caffeine you consume, or drinking fluids at different times of the day. ?Not smoking. Do not use any products that contain nicotine or tobacco, such as cigarettes and e-cigarettes. If you need help quitting, ask your health care provider. Surgery. ?A device may be implanted to help manage the nerve signals that control urination. ?An electrode may be implanted to stimulate electrical signals in the bladder. ?A procedure may be done to change the shape of the bladder. This is done only in very severe cases. Follow these instructions at home: Lifestyle Make any diet or lifestyle changes that are recommended by your health care provider. These may include: ?Drinking less fluid or drinking fluids at different times of the day. ?Cutting down on caffeine or alcohol. ?Doing Kegel exercises. ?Losing weight if needed. ?Eating a healthy and balanced diet to prevent constipation. This may include: ?Eating foods that are high in fiber, such as fresh fruits and vegetables, whole grains, and beans. ?Limiting foods that are high in fat and processed sugars, such as fried and sweet foods. General instructions Take fopu-dsj-ejlvene and prescription medicines only as told by your health care provider. If you were prescribed an antibiotic medicine, take it as told by your health care provider. Do notstop taking the antibiotic even if you start to feel better. Use any implants or pessary as told by your health care provider. If needed, wear pads to absorb urine leakage. Keep a journal or log to track how much and when you drink and when you feel the need to urinate. This will help your health care provider monitor your condition. Keep all follow-up visits as told by your health care provider. This is important. Contact a health care provider if: You have a fever. Your symptoms do not get better with treatment. Your pain and discomfort get worse. You have more frequent urges to urinate. Get help right away if: You are not able to control your bladder. Summary Overactive bladder refers to a condition in which a person has a sudden need to pass urine. Several conditions may lead to an overactive bladder. Treatment for overactive bladder depends on the cause and severity of your condition. Follow your health care provider's instructions about lifestyle changes, doing Kegel exercises, keeping a journal, and taking medicines. This information is not intended to replace advice given to you by your health care provider. Make sure you discuss any questions you have with your health care provider. Document Released: 05/15/2010 Document Revised: 11/09/2019 Document Reviewed: 08/04/2018 [employer] Patient Education 2020 [employer]. Follow Up Care 09/01/2022 09:36:01 With:JERRELL EVANS, Tammy Burk, URL Address: [facility] [address], [place] [address]- When: Unknown [facility] 12-05-2022 Progress note Author [facility] Note Date/Time July 06, 2022 9 :14[facility] at [address] [address] Hem/Onc Follow Up Note - OP Signed Patient: Alessandra Hardy MR#: [id number] : 1960 Acct:[id number] Age/Sex: 62 / F Type: REG RCR Copies to: Neva Miller DO~ Subjective Date/Time of Service: Date of Service: 07/06/2022 Time of Service: 09:05 Chief Complaint: Patient is here for a 6 month follow up with labs 06/30/2022 for review. No concerns voiced at this time. HPI: 07/06/2022: Minnie is here for interval 6 month follow up; last visit with Dr. Turner was on 01/02/2022. No significant changes in health history; she did undergo urethral stent placement with Dr. Allan recently. Otherwise, she denies any issues with headaches, unintentional weight loss, new bony pain, lower extremity edema, fever/chills, recent/recurrent infections, or night sweats. Labs are reviewed; overall stable. 01/03/2022: Minnie was referred for marked elevation of her erythrocyte sedimentation rate. She has known history of multiple sclerosis and chronic erythema over her right anterior lai with nonhealing ulcer for over 5 years. She was noted to have elevated gammaglobulin without observed M spike on serum protein electrophoresis and mild elevation of free kappa/lambda light chain ratio (although noted to have elevation of both free kappa and free lambda lightchains. I completed her work-up for monoclonal gammopathy with laboratories 12/30/2020 showing no evidence of M spike and urine protein electrophoresis and repeat quantitative immunoglobulins showing elevation of both IgG and IgM with mild decline of free kappa from 105 to 68, free lambda from 49 to 33, and prior free kappa/lambda ratio 2.12 to 2.07. 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 At this time, do not feel she warrants bone marrow aspiration or biopsy and may follow-up with hematology on an as-needed basis, but she may be referred again if she has evidence of anemia, hypercalcemia, or worsening renal function. ORIGINAL CONSULT 12/11/2021 This is a 61-year-old lady who has been residing at [facility] for about 3 years due to poor mobility from multiple sclerosis. She notes that she was diagnosed with MS at the age of 22 and has secondary progressive multiple sclerosis. She reports that she was on Copaxone about 10 years ago and has been on ABC drugs but no current therapy. She notes chronic leg weakness and that over half of her body is chronically numb due to MS. She has not had any changein her chronic weakness for many years. She has a chronic cellulitis with a nonhealing wound over her right anterior lai since 2016. This area is not painful and she has not been on any active antibiotics. She reports a right ureter compromise and has to chronically uses straight catheterization. She denies any bone pain and does not know of any chronic renal disease. In reviewing recent laboratories, she has an elevated erythrocyte sedimentation rate of 86 but C-reactive protein is normal at 0.8. She does not have any anemia, significant renal dysfunction (eGFR 54), hypercalcemia, or any known bone lesions. She had an elevated gammaglobulin of 2.5 with M spike not observed on serum protein electrophoresis. She had free kappa and free lambda light chain elevations with mildly elevated free kappa/lambda light chain ratio of 2.12 (normal range is 0.26-1.65). I advised the patient that she should have further evaluation with urine proteinelectrophoresis, urine immunofixation, and urine creatinine level to determine if she has evidence of myeloma kidney. I will also repeat her free kappa/lambdalight chain ratio as her last studies were 2 months ago as well as quantitative immunoglobulins IgG, IgM, and IgA. It is likely that her chronic hypogammaglobulinemia with mild kappa/lambda light chain elevation is due to chronic inflammatory state due to her multiple sclerosis. If she has kappa/lambda light chain ratio greater than 5 there may be utility in performingbone marrow aspiration and biopsy, however I would recommend likely every 6-month observation in the absence of significant monoclonal spike, particularly if she does not have any other signs of myeloma such as anemia, renal dysfunction, hypercalcemia, or bone disease. Her neuropathy appears to be chronic and likely unrelated to monoclonal gammopathy or amyloidosis. Patient expressed understanding. 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 No recent weight change. HEAD AND NECK: Negative for changes in hearing and vision. Negative for mouth ulcers, nasal congestion and nasal drainage. PULMONARY: Negative for chest pain, cough and dyspnea. CARDIOVASCULAR: Negative for claudication and irregular heartbeat/palpitations. GASTROINTESTINAL: Negative for abdominal pain, constipation, decreased appetite,diarrhea, nausea or vomiting. GENITOURINARY: Negative for dysuria and hematuria. She does chronically straight cath due to neurologic issues. ENDOCRINE: Negative for cold intolerance and heat intolerance. CENTRAL NERVOUS SYSTEM: Completely dependent for transfers due to chronic numbness and weakness of the lower half of her body due to multiple sclerosis. No headaches or focal neurologic symptoms currently. Stable from baseline. PSYCHIATRIC: Negative for anxiety or depression. DERMATOLOGICAL: Remarkable for chronic erythema overlying her right anterior lai (covered with bandage due to chronic ulcer). Otherwise negative for pruritus and rash. Negative for suspicious skin lesions. MUSCULOSKELETAL: Negative for back pain and bone/joint symptoms. HEMATOLOGICAL: Negative for bleeding and easy bruising. Negative for history of transfusion or thromboembolic disease ALLERGY: Negative for environmental allergies and food allergies. [facility] [place] - Medical History Medical History: Medical History (Last Reviewed 06/29/22 @ 10:23 by Kindra Aiken RN) Age-related osteoporosis without current pathological fracture Cellulitis of right lower limb Cognitive communication deficit Congenital mitral stenosis GERD without esophagitis History of falling Major depressive disorder, recurrent, unspecified Multiple sclerosis Muscle weakness (generalized) Neuromuscular dysfunction of bladder, unspecified Other abnormalities of gait and mobility Other seizures history of Personal history of (healed) traumatic fracture Syncope and collapse Transient cerebral ischemic attack, unspecified Unspecified lack of coordination Unsteadiness on feet - Surgical History Surgical History: Surgical History (Last Reviewed 06/29/22 @ 10:23 by Kindra Aiken RN) History of orthopedic surgery ankle and thigh surgery History of tonsillectomy History of tubal ligation - Family History Family History: Family History (Last Reviewed 05/26/22 @ 09:57 by Gely Christopher RN) Father Melanoma S/P CABG x 3 Mother Dementia - Social History Smoking Status: Former smoker Tobacco Type: cigarettes Substance Use Type: None Home Medications & Allergies Allergies adhesive tape Allergy (Verified 07/06/22 08:06) Unknown Reaction aspirin Allergy (Verified 07/06/22 08:06) Unknown Reaction Home Medications acetaminophen 500 mg tablet 500 mg PO Q6H PRN Pain 04/23/21 [History Confirmed 07/06/22] artificial tears(wiuehro-tbdadrje-zzfizos) 0.1 %-0.3 %-0.2 % eye drops 1 drp Eye-Both QID PRN Dry Eyes 04/23/21 [History Confirmed 07/06/22] fludrocortisone 0.1 mg tablet 0.1 mg PO DAILY cellulitis 04/23/21 [History Confirmed 07/06/22] lamotrigine 100 mg tablet 100 mg PO BID seizures 04/23/21 [History Confirmed 07/06/22] nortriptyline 10 mg capsule 20 mg PO DAILY 04/23/21 [History Confirmed 07/06/22] pantoprazole 40 mg tablet,delayed release 20 mg PO DAILY 04/23/21 [History Confirmed 07/06/22] sennosides 8.6 mg capsule 16.2 mg PO BID PRN Constipation 04/23/21 [History Confirmed 07/06/22] cholecalciferol (vitamin D3) 25 mcg (1,000 unit) tablet (Vitamin D3) 25 mcg PO DAILY 12/11/21 [History Confirmed 07/06/22] eucalyptus oil-aloe extr-lavender,janett oil-petrolatum top ointment (Vicks Babyrub topical ointment) 1 applic topical DIRECTED PRN Congestion 12/11/21 [History Confirmed 07/06/22] polyethylene glycol 3350 17 gram oral powder packet (Miralax) 17 g PO DAILY 12/11/21 [History Confirmed 07/06/22] menthol 3.2 mg lozenges 3.2 mg PO DIRECTED 05/12/22 [History Confirmed 07/06/22] miconazole nitrate 2 % topical powder (Micro-Guard) 1 applic topical TID PRN excoriation to abd folds 05/12/22 [History Confirmed 07/06/22] mirabegron 25 mg tablet,extended release 24 hr (Myrbetriq) 25 mg PO DAILY 05/12/22 [History Confirmed 07/06/22] tacrolimus 0.1 % topical ointment (Protopic) 1 applic topical QHS non healing wound 05/12/22 [History Confirmed 07/06/22] fluoxetine 10 mg capsule (Prozac) 10 mg PO DAILY 05/26/22 [History Confirmed 07/06/22] pneumoc 20-gilda conj-dip cr(PF) 0.5 mL IM syringe (Prevnar 20 (PF)) 0.5 ml IM QHS05/26/22 [History Confirmed 07/06/22] Objective - Resuscitation Status Resuscitation Status: Full Code - Height/Weight Height/Weight: Height 5 ft 9 in Weight 104.6 kg - Vital Signs Vital Signs: 07/06/22 08:06 Temperature 98 F Pulse Rate [Left Brachial] 94 H Respiratory Rate 20 Blood Pressure [Right Arm] 114/73 02 Sat by Pulse Oximetry 95 Oxygen Delivery Method Room Air - Pain Abdomen Pain Intensity: 0 Physical Exam Narrative: CONSTITUTIONAL: The patient is in no acute distress. HEAD / FACE: Normocephalic. NOSE / MOUTH / THROAT: Nose, mouth, tongue and oropharynx are benign in appearance. No signs of inflammation. NECK / THYROID: Neck is supple. Thyroid is symmetrical, without thyromegaly, masses or palpable nodules. LYMPHATIC: No palpable cervical, supraclavicular, axillary, or inguinal adenopathy. RESPIRATORY: Normal to inspection. Lungs clear to auscultation and percussion. No wheezing, rales, rhonchi or rubs. Normal effort. CARDIOVASCULAR: Regular rate and rhythm. No murmurs, gallops, or rubs. VASCULAR: Carotid, radial, femoral and pedal pulses present bilaterally. No bruits. ABDOMEN: Bowel sounds normoactive. Soft, nontender and non-distended. No hepatosplenomegaly. No masses. GENITOURINARY: No CVA tenderness. No suprapubic fullness or tenderness. No groinadenopathy. No evidence of hernias. INTEGUMENTARY: The skin is remarkable for diffuse erythema overlying the right anterior lai (bandage was not removed to examine chronic ulcer). No rashes. No suspicious lesions for malignancy. BACK / SPINE: The back is nontender. MUSCULOSKELETAL: Normal musculature, no joint deformities or abnormalities, normal range of motion for all four extremities. EXTREMITIES: No edema, cyanosis or clubbing. No Doug sign. + chronic right shinnon healing wound; bandaid in place; improved per patient. NEUROLOGICAL: Alert and oriented. Cranial nerves intact. She has motor weaknessand sensory deficits lower half of body consistent with her known multiple sclerosis. No speech deficits. - ECOG Performance Status ECOG Score: 2 Assessment and Plan (1) Elevated serum immunoglobulin free light chain level This is a 61-year-old lady who resides in a nursing facility due to diagnosis ofsecondary progressive multiple sclerosis (diagnosed at age 22, no active therapyreported for the last 10 years). She has chronic neuropathy which has not recently progressed. She also has a chronic nonhealing ulcerated lesion of the right anterior lai. She had recent serum protein electrophoresis which did notshow any serum M spike but kappa/lambda light chain analysis showed elevation ofboth light chain populations with ratio 2. Typically active myeloma is associated with light chain ratio is at least greater than 5-10, and is likely that this mild increase of kappa/lambda light chain ratio is due to her chronic inflammatory state either from multiple sclerosis or her chronic nonhealing ulcer. In addition she did have a recent erythrocyte sedimentation rate that was significantly elevated to 83. She does have chronic urinary retention issues and performs kszj-rarxxdllvzxxfhu4-5 times daily. She does not have any anemia, worsening renal function, or hypercalcemia. I recommended sending urine protein electrophoresis with urine immunofixation and urine creatinine to calculate whether she has proteinuria or if she has a urine light chain monoclonality. If significant urinary light chain monoclonality is identified or repeat kappa/lambda light chain ratio showssignificant progression of serum light chains, she may benefit from bone marrow aspiration and biopsy to determine if she has progression to myeloma. If all ofthis work-up is negative and she only has a mildly elevated urine kappa/lambda light chain ratio without evidence of monoclonality, there is no benefit in performing bone marrow biopsy and likely no utility in routine monitoring of herkappa/lambda light chains. I explained this to her in detail and will follow-upwith her for in person or phone visit in about 3 weeks to review results and further follow-up recommendations. She expressed understanding over this moderate complexity 60-minute visit. 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 Elevation ofIgG and IgM gammaglobulins more likely related to her multiple sclerosis and shehad a decline of both free kappa, free lambda light chains as well as kappa/lambda light chain ratio over the last 2 months. As there is no evidence of monoclonal gammopathy, I do not recommend routinely following serum or urine. 07/06/2022: Here for interval 6-month follow-up from outside nursing facility. Patient reports no new issues since last visit. Particularly denies any issues with new bony pain, shortness of breath, increasing fatigue, chest pain or cough. Labs are reviewed. No evidence of monoclonality on urine immunofixation; no evidence of worsening anemia or hypercalcemia. [place] lambda light chains are stable; kappa lambda ratio has actually improved as compared toprior studies at 1.7. -Due to stability of labs and symptoms and no evidence of monoclonal gammopathy;we discussed following up as needed versus annual follow-up. Patient would prefer annual surveillance. -Follow-up in 1 year with same laboratories, sooner if worsening anemia, hypercalcemia or new bony pain. (2) Secondary progressive multiple sclerosis Currently resides at a intermediate and no active therapy at this time but followed by neurology. She denies any recent worsening of neurologic symptoms. (3) Paraparesis of both lower limbs Chronic paraparesis of lower limbs secondary to MS. (4) Nonhealing ulcer of right lower extremity Qualifiers: Non-pressure ulcer stage: unspecified non-pressure ulcer stage Qualified Code(s): L97.919 - Non-pressure chronic ulcer of unspecified part of right lowerleg with unspecified severity Patient reports chronic nonhealing ulcer, not examined today. Defer to chronic wound care nurse at her facility. - improved as compared to baseline per patient. - Time with Patient Time Spent with Patient (Follow Up Visit): 25 minutes Coordination of Care & Counseling Time: Greater than 50% of time spent with patient was for coordination of care (as documented) and [id number] counseling of patient and/or family. Dictated By: Chantelle Lobato APRN DD/ 4 Signed By: <Electronically signed by MARIANELA Lobato> 07/06/22913 [facility] Work Phone: [phone]) 901-444212-05-2022 [facility] [place] [address] Hem/Onc Follow Up Note - OP Signed Patient: Alessandra Hardy MR#: [id number] : 1960 Acct:[id number] Age/Sex: 62 / F Type: REG RCR Copies to: Neva Miller DO~ Subjective Date/Time of Service: Date of Service: 07/06/2022 Time of Service: 09:05 Chief Complaint: Patient is here for a 6 month follow up with labs 06/30/2022 for review. No concerns voiced at this time. HPI: 07/06/2022: Minnie is here for interval 6 month follow up; last visit with Dr. Turner was on 01/02/2022. No significant changes in health history; she did undergo urethral stent placement with Dr. Allan recently. Otherwise, she denies any issues with headaches, unintentional weight loss, new bony pain, lower extremity edema, fever/chills, recent/recurrent infections, or night sweats. Labs are reviewed; overall stable. 01/03/2022: Minnie was referred for marked elevation of her erythrocyte sedimentation rate. She hasknown history of multiple sclerosis and chronic erythema over her right anterior lai with nonhealing ulcer for over 5 years. She was noted to have elevated gammaglobulin without observed M spike on serum protein electrophoresis and mild elevation of free kappa/lambda light chain ratio (although noted to have elevation of both free kappa and free lambda lightchains. I completed her work-up for monoclonal gammopathy with laboratories 12/30/2020 showing no evidence of M spike and urine protein electrophoresis and repeat quantitative immunoglobulins showing elevation of both IgG and IgM with milddecline of free kappa from 105 to 68, free lambda from 49 to 33, and prior free kappa/lambda ratio 2.12 to 2.07. 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 At this time, do not feel she warrants bone marrow aspiration or biopsy and may follow-up with hematology on an as-needed basis, but she may be referred again if she has evidence of anemia, hypercalcemia, or worsening renal function. ORIGINAL CONSULT 12/11/2021 This is a 61-year-old lady who has been residing at [facility] for about 3 years due to poor mobility from multiple sclerosis. She notes that she was diagnosed with MS at the age of 22 and has secondary progressive multiple sclerosis. She reports that she was on Copaxone about 10 years ago and hasbeen on ABC drugs but no current therapy. She notes chronic leg weakness and that over half of her body is chronically numb due to MS. She has not had any changein her chronic weakness for many years. She has a chronic cellulitis with a nonhealing wound over her right anterior lai since 2016. This area is not painful and she has not been on any active antibiotics. She reports a right ureter compromise and has to chronically uses straight catheterization. She denies any bone pain and does not know of any chronic renal disease. In reviewing recent laboratories, she has an elevated erythrocyte sedimentation rate of 86 but C-reactive protein is normal at 0.8. She does not have any anemia, significant renal dysfunction (eGFR 54), hypercalcemia, or any known bone lesions. She had an elevated gammaglobulin of 2.5 with M spike not observed on serum protein electrophoresis. She had free kappa and free lambda light chain elevations with mildly elevated free kappa/lambda light chain ratio of 2.12 (normal range is 0.26-1.65). I advised the patient that she should have further evaluation with urine proteinelectrophoresis, urine immunofixation, and urine creatinine level to determine if she has evidence of myeloma kidney. Iwill also repeat her free kappa/lambdalight chain ratio as her last studies were 2 months ago as well as quantitative immunoglobulins IgG, IgM, and IgA. It is likely that her chronic hypogammaglobulinemia with mild kappa/lambda light chain elevation is due to chronic inflammatory state due to her multiple sclerosis. If she has kappa/lambda light chain ratio greater than 5 there may be utility in p erformingbone marrow aspiration and biopsy, however I would recommend likely every 6-month observation in the absence of significant monoclonal spike, particularly if she does not have any other signs of myeloma such as anemia, renal dysfunction, hypercalcemia, or bone disease. Her neuropathy appears to be chronic and likely unrelated to monoclonal gammopathy or amyloidosis. Patient expressed understanding. 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 No recent weight change. HEAD AND NECK: Negative for changes in hearing and vision. Negative for mouth ulcers, nasal congestion and nasal drainage. PULMONARY: Negative for chest pain, cough and dyspnea. CARDIOVASCULAR: Negative for claudication and irregular heartbeat/palpitations. GASTROINTESTINAL: Negative for abdominal pain, constipation, decreased appetite,diarrhea, nausea orvomiting. GENITOURINARY: Negative for dysuria and hematuria. She does chronically straight cath due to neurologic issues. ENDOCRINE: Negative for cold intolerance and heat intolerance. CENTRAL NERVOUS SYSTEM: Completely dependent for transfers due to chronic numbness and weakness of the lower half of her body due to multiple sclerosis. No headaches or focal neurologic symptoms currently. Stable from baseline. PSYCHIATRIC: Negative for anxiety or depression. DERMATOLOGICAL: Remarkable for chronic erythema overlying her right anterior lai (covered with bandage due to chronic ulcer). Otherwise negative for pruritus and rash. Negative for suspicious skin lesions. MUSCULOSKELETAL: Negative for back pain and bone/joint symptoms. HEMATOLOGICAL: Negative for bleeding and easy bruising. Negative for history of transfusion or thromboembolic disease ALLERGY: Negative for environmental allergies and food allergies. [facility] [place] - Medical History Medical History: Medical History (Last Reviewed 06/29/22 @ 10:23 by Kindra Aiken RN) Age-related osteoporosis without current pathological fracture Cellulitis of right lower limb Cognitive communication deficit Congenital mitral stenosis GERD without esophagitis History of falling Major depressive disorder, recurrent, unspecified Multiple sclerosis Muscle weakness (generalized) Neuromuscular dysfunction of bladder, unspecified Other abnormalities of gait and mobility Other seizures history of Personal history of (healed) traumatic fracture Syncope and collapse Transient cerebral ischemic attack, unspecified Unspecified lack of coordination Unsteadiness on feet - Surgical History Surgical History: Surgical History (Last Reviewed 06/29/22 @ 10:23 by Kindra Aiken RN) History of orthopedic surgery ankle and thigh surgery History of tonsillectomy History of tubal ligation - Family History Family History: Family History (Last Reviewed 05/26/22 @ 09:57 by Gely Christopher RN) Father Melanoma S/P CABG x 3 Mother Dementia - Social History Smoking Status: Former smoker Tobacco Type: cigarettes Substance Use Type: None Home Medications & Allergies Allergies adhesive tape Allergy (Verified 07/06/22 08:06) Unknown Reaction aspirin Allergy (Verified 07/06/22 08:06) Unknown Reaction Home Medications acetaminophen 500 mg tablet 500 mg PO Q6H PRN Pain 04/23/21 [History Confirmed 07/06/22] artificial tears(mnyfumn-lzwcawrv-qlgolmd) 0.1 %-0.3 %-0.2 % eye drops 1 drp Eye-Both QID PRN Dry Eyes 04/23/21 [History Confirmed 07/06/22] fludrocortisone 0.1 mg tablet 0.1 mg PO DAILY cellulitis 04/23/21 [History Confirmed 07/06/22] lamotrigine 100 mg tablet 100 mg PO BID seizures 04/23/21 [History Confirmed 07/06/22] nortriptyline 10 mg capsule 20 mg PO DAILY 04/23/21 [History Confirmed 07/06/22] pantoprazole 40 mg tablet,delayed release 20 mg PO DAILY 04/23/21 [History Confirmed 07/06/22] sennosides 8.6 mg capsule 16.2 mg PO BID PRN Constipation 04/23/21 [History Confirmed 07/06/22] cholecalciferol (vitamin D3) 25 mcg (1,000 unit) tablet (Vitamin D3) 25 mcg PO DAILY 12/11/21 [History Confirmed 07/06/22] eucalyptus oil-aloe extr-lavender,janett oil-petrolatum top ointment (Vicks Babyrub topical ointment) 1 applic topical DIRECTED PRN Congestion 12/11/21 [History Confirmed 07/06/22] polyethylene glycol 3350 17 gram oral powder packet (Miralax) 17 g PO DAILY 12/11/21 [History Confirmed 07/06/22] menthol 3.2 mg lozenges 3.2 mg PO DIRECTED 05/12/22 [History Confirmed 07/06/22] miconazole nitrate 2 % topical powder (Micro-Guard) 1 applic topical TID PRN excoriation to abd folds 05/12/22 [History Confirmed 07/06/22] mirabegron 25 mg tablet,extended release 24 hr (Myrbetriq) 25 mg PO DAILY 05/12/22 [History Confirmed 07/06/22] tacrolimus 0.1 % topical ointment (Protopic) 1 applic topical QHS non healing wound 05/12/22 [History Confirmed 07/06/22] fluoxetine 10 mg capsule (Prozac) 10 mg PO DAILY 05/26/22 [History Confirmed 07/06/22] pneumoc 20-gilda conj-dip cr(PF) 0.5 mL IM syringe (Prevnar 20 (PF)) 0.5 ml IM QHS05/26/22 [History Confirmed 07/06/22] Objective - Resuscitation Status Resuscitation Status: Full Code - Height/Weight Height/Weight: Height 5 ft 9 in Weight 104.6 kg - Vital Signs Vital Signs: 07/06/22 08:06 Temperature 98 F Pulse Rate [Left Brachial] 94 H Respiratory Rate 20 Blood Pressure [Right Arm] 114/73 02 Sat by Pulse Oximetry 95 Oxygen Delivery Method Room Air - Pain Abdomen Pain Intensity: 0 Physical Exam Narrative: CONSTITUTIONAL: The patient is in no acute distress. HEAD / FACE: Normocephalic. NOSE / MOUTH / THROAT: Nose, mouth, tongue and oropharynx are benign in appearance. No signs of inflammation. NECK / THYROID: Neck is supple. Thyroid is symmetrical, without thyromegaly, masses or palpable nodules. LYMPHATIC: No palpable cervical, supraclavicular, axillary, or inguinal adenopathy. RESPIRATORY: Normal to inspection. Lungs clear to auscultation and percussion. No wheezing, rales, rhonchi or rubs. Normal effort. CARDIOVASCULAR: Regular rate and rhythm. No murmurs, gallops, or rubs. VASCULAR: Carotid, radial, femoral and pedal pulses present bilaterally. No bruits. ABDOMEN: Bowel sounds normoactive. Soft, nontender and non-distended. No hepatosplenomegaly. No masses. GENITOURINARY: No CVA tenderness. No suprapubic fullness or tenderness. No groinadenopathy. No evidence of hernias. INTEGUMENTARY: The skin is remarkable for diffuse erythema overlying the right anterior lai (bandage was not removed to examine chronic ulcer). No rashes. No suspicious lesions for malignancy. BACK / SPINE: The back is nontender. MUSCULOSKELETAL: Normal musculature, no joint deformities or abnormalities, normal range of motion for all four extremities. EXTREMITIES: No edema, cyanosis or clubbing. No Doug sign. + chronic right shinnon healing wound; bandaid in place; improved per patient. NEUROLOGICAL: Alert and oriented. Cranial nerves intact. She has motor weaknessand sensory deficitslower half of body consistent with her known multiple sclerosis. No speech deficits. - ECOG Performance Status ECOG Score: 2 Assessment and Plan (1) Elevated serum immunoglobulin free light chain level This is a 61-year-old lady who resides in a nursing facility due to diagnosis ofsecondary progressive multiple sclerosis (diagnosed at age 22, no active therapyreported for the last 10 years). She has chronic neuropathy which has not recently progressed. She also has a chronic nonhealing ulcerated lesion of the right anterior lai. She had recent serum protein electrophoresis which did notshow any serum M spike but kappa/lambda light chain analysis showed elevation ofboth light chain populations with ratio 2. Typically active myeloma is associated with light chain ratio is at least greater than 5-10, and is likely that this mild increase of kappa/lambda light chain ratio is due to her chronic inflammatory state either from multiple sclerosis or her chronic nonhealing ulcer. In addition she did have a recent erythrocyte sedimentation rate that was significantly elevated to 83. She does have chronic urinary retention issues and performs grez-enlbpudpgeikuxd9-1 times daily. She does not have any anemia, worsening renal function, or hypercalcemia. I recommended sending urine protein electrophoresis with urine immunofixation and urine creatinine to calculate whether she has proteinuria or if she has a urine light chain monoclonality. If significant urinary light chain monoclonality is identified or repeat kappa/lambda light chain ratio showssignificant progression of serum light chains, she may benefit from bone marrow aspiration and biopsy to determine if she has progression to myeloma. If all ofthis work-up is negative and she only has a mildly elevated urine kappa/lambda light chain ratio without evidence of monoclonality, there is no benefit in performing bone marrow biopsy and likely no utility in routine monitoring of herkappa/lambda light chains. I explained this to her in detail and will follow-upwith her for in person or phone visit in about 3 weeks toreview results and further follow-up recommendations. She expressed understanding over this moderate complexity 60-minute visit. 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 Elevation ofIgG and IgM gammaglobulins more likely related to her multiple sclerosis and shehad a decline of both free kappa, free lambda light chains as well as kappa/lambda light chain ratio over the last 2 months. As there is no evidence of monoclonal gammopathy, I do not recommend routinely following serum or urine. 07/06/2022: Here for interval 6-month follow-up from outside nursing facility. Patient reports no new issues since last visit. Particularly denies any issues with new bony pain, shortness of breath, increasing fatigue, chest pain or cough. Labs are reviewed. No evidence of monoclonality on urine immunofixation; no evidence of worsening anemia or hypercalcemia. [place] lambda light chains are stable;kappa lambda ratio has actually improved as compared toprior studies at 1.7. -Due to stability of labs and symptoms and no evidence of monoclonal gammopathy;we discussed following up as needed versus annual follow-up. Patient would prefer annual surveillance. -Follow-up in 1 year with same laboratories, sooner if worsening anemia, hypercalcemia or new bony pain. (2) Secondary progressive multiple sclerosis Currently resides at a intermediate and no active therapy at this time but followed by neurology. She denies any recent worsening of neurologic symptoms. (3) Paraparesis of both lower limbs Chronic paraparesis of lower limbs secondary to MS. (4) Nonhealing ulcer of right lower extremity Qualifiers: Non-pressure ulcer stage: unspecified non-pressure ulcer stage Qualified Code(s): L97.919 - Non-pressure chronic ulcer of unspecified part of right lowerleg with unspecified severity Patient reports chronic nonhealing ulcer, not examined today. Defer to chronic wound care nurse at her facility. - improved as compared to baseline per patient. - Time with Patient Time Spent with Patient (Follow Up Visit): 25 minutes Coordination of Care & Counseling Time: Greater than 50% of time spent with patient was for coordination of care (as documented) and [id number]-[id number] counseling of patient and/or family. Dictated By: Chantelle Lobato APRN DD/ 4 Signed By: 07/06/22913 [facility]10-04-2022 Evaluation + Plan note Diagnostic Tests Pending * Urine Culture 05/05/22 [facility]10-04-2022 Hospital Discharge instructions Patient Education 05/05/2022 11:57:41 Calorie Counting for Weight Loss Calorie Counting for Weight Loss Calories are units of energy. Your body needs a certain amount of calories from food to keep you going throughout the day. When you eat more calories than your body needs, your body stores the extra calories as fat. When you eat fewer calories than your body needs, your body villagomez fat to get the energy it needs. Calorie counting means keeping track of how many calories you eat and drink each day. Calorie counting can be helpful if you need to lose weight. If you make sure to eat fewer calories than your bodyneeds, you should lose weight. Ask your health care provider what a healthy weight is for you. For calorie counting to work, you will need to eat the right number of calories in a day in order to lose a healthy amount of weight per week. A dietitian can help you determine how many calories youneed in a day and will give you suggestions on how to reach your calorie goal. A healthy amount of weight to lose per week is usually 1 2 lb (0.5 0.9 kg). This usually means thatyour daily calorie intake should be reduced by 500 750 calories. Eating 1,200 1,500 calories per day can help most women lose weight. Eating 1,500 1,800 calories per day can help most men lose weight. What is my plan? My goal is to have calories per day. If I have this many calories per day, I should lose around pounds per week. What do I need to know about calorie counting? In order to meet your daily calorie goal, you will need to: Find out how many calories are in each food you would like to eat. Try to do this before you eat. Decide how much of the food you plan to eat. Write down what you ate and how many calories it had. Doing this is called keeping a food log. To successfully lose weight, it is important to balance calorie counting with a healthy lifestyle that includes regular activity. Aim for 150 minutes of moderate exercise (such as walking) or 75 minutes of vigorous exercise (such as running) each week. Where do I find calorie information? The number of calories in a food can be found on a Nutrition Facts label. If a food does not have aNutrition Facts label, try to look up the calories online or ask your dietitian for help. Remember that calories are listed per serving. If you choose to have more than one serving of a food, you will have to multiply the calories per serving by the amount of servings you plan to eat. Forexample, the label on a package of bread might say that a serving size is 1 slice and that there are 90 calories in a serving. If you eat 1 slice, you will have eaten 90 calories. If you eat 2 slices, you will have eaten 180 calories. How do I keep a food log? Immediately after each meal, record the following information in your food log: What you ate. Don't forget to include toppings, sauces, and other extras on the food. How much you ate. This can be measured in cups, ounces, or number of items. How many calories each food and drink had. The total number of calories in the meal. Keep your food log near you, such as in a small notebook in your pocket, or use a mobile al or website. Some programs will calculate calories for you and show you how many calories you have left forthe day to meet your goal. What are some calorie counting tips? Use your calories on foods and drinks that will fill you up and not leave you hungry: ?Some examples of foods that fill you up are nuts and nut butters, vegetables, lean proteins, and high-fiber foods like whole grains. High-fiber foods are foods with more than 5 g fiber per serving. ?Drinks such as sodas, specialty coffee drinks, alcohol, and juices have a lot of calories, yet do not fill you up. Eat nutritious foods and avoid empty calories. Empty calories are calories you get from foods or beverages that do not have many vitamins or protein, such as candy, sweets, and soda. It is better to have a nutritious high-calorie food (such as an avocado) than a food with few nutrients (such as a bag of chips). Know how many calories are in the foods you eat most often. This will help you calculate calorie counts faster. Pay attention to calories in drinks. Low-calorie drinks include water and unsweetened drinks. Pay attention to nutrition labels for low fat or fat free foods. These foods sometimes have thesame amount of calories or more calories than the full fat versions. They also often have added sugar, starch, or salt, to make up for flavor that was removed with the fat. Find a way of tracking calories that works for you. Get creative. Try different apps or programs ifwriting down calories does not work for you. What are some portion control tips? Know how many calories are in a serving. This will help you know how many servings of a certain food you can have. Use a measuring cup to measure serving sizes. You could also try weighing out portions on a kitchenscale. With time, you will be able to estimate serving sizes for some foods. Take some time to put servings of different foods on your favorite plates, bowls, and cups so you know what a serving looks like. Try not to eat straight from a bag or box. Doing this can lead to overeating. Put the amount you would like to eat in a cup or on a plate to make sure you are eating the right portion. Use smaller plates, glasses, and bowls to prevent overeating. Try not to multitask (for example, watch TV or use your computer) while eating. If it is time to eat, sit down at a table and enjoy your food. This will help you to know when you are full. It will also help you to be aware of what you are eating and how much you are eating. What are tips for following this plan? Reading food labels Check the calorie count compared to the serving size. The serving size may be smaller than what youare used to eating. Check the source of the calories. Make sure the food you are eating is high in vitamins and proteinand low in saturated and trans fats. Shopping Read nutrition labels while you shop. This will help you make healthy decisions before you decide to purchase your food. Make a grocery list and stick to it. Cooking Try to cook your favorite foods in a healthier way. For example, try baking instead of frying. Use low-fat dairy products. Meal planning Use more fruits and vegetables. Half of your plate should be fruits and vegetables. Include lean proteins like poultry and fish. How do I count calories when eating out? Ask for smaller portion sizes. Consider sharing an entree and sides instead of getting your own entree. If you get your own entree, eat only half. Ask for a box at the beginning of your meal and put the rest of your entree in it so you are not tempted to eat it. If calories are listed on the menu, choose the lower calorie options. Choose dishes that include vegetables, fruits, whole grains, low-fat dairy products, and lean protein. Choose items that are boiled, broiled, grilled, or steamed. Stay away from items that are buttered,battered, fried, or served with cream sauce. Items labeled crispy are usually fried, unless stated otherwise. Choose water, low-fat milk, unsweetened iced tea, or other drinks without added sugar. If you want an alcoholic beverage, choose a lower calorie option such as a glass of wine or light beer. Ask for dressings, sauces, and syrups on the side. These are usually high in calories, so you should limit the amount you eat. If you want a salad, choose a garden salad and ask for grilled meats. Avoid extra toppings like aburto, cheese, or fried items. Ask for the dressing on the side, or ask for olive oil and vinegar or lemon to use as dressing. Estimate how many servings of a food you are given. For example, a serving of cooked rice is cup orabout the size of half a baseball. Knowing serving sizes will help you be aware of how much food you are eating at restaurants. The list below tells you how big or small some common portion sizes arebased on everyday objects: ?1 oz 4 stacked dice. ?3 oz 1 deck of cards. ?1 tsp 1 . ?1 Tbsp a ping-pong ball. ?2 Tbsp 1 ping-pong ball. ? cup baseball. ?1 cup 1 baseball. Summary Calorie counting means keeping track of how many calories you eat and drink each day. If you eat fewer calories than your body needs, you should lose weight. A healthy amount of weight to lose per week is usually 1 2 lb (0.5 0.9 kg). This usually means reducing your daily calorie intake by 500 750 calories. The number of calories in a food can be found on a Nutrition Facts label. If a food does not have aNutrition Facts label, try to look up the calories online or ask your dietitian for help. Use your calories on foods and drinks that will fill you up, and not on foods and drinks that will leave you hungry. Use smaller plates, glasses, and bowls to prevent overeating. This information is not intended to replace advice given to you by your health care provider. Make sure you discuss any questions you have with your health care provider. Document Released: 07/19/2006 Document Revised: 04/07/2019 Document Reviewed: 06/18/2017 [employer] Patient Education 2020 [employer]. 05/05/2022 11:57:34 Overactive Bladder, Adult Overactive Bladder, Adult Overactive bladder refers to a condition in which a person has a sudden need to pass urine. The person may leak urine if he or she cannot get to the bathroom fast enough (urinary incontinence). A person with this condition may also wake up several times in the night to go to the bathroom. Overactive bladder is associated with poor nerve signals between your bladder and your brain. Your bladder may get the signal to empty before it is full. You may also have very sensitive muscles thatmake your bladder squeeze too soon. These symptoms might interfere with daily work or social activities. What are the causes? This condition may be associated with or caused by: Urinary tract infection. Infection of nearby tissues, such as the prostate. Prostate enlargement. Surgery on the uterus or urethra. Bladder stones, inflammation, or tumors. Drinking too much caffeine or alcohol. Certain medicines, especially medicines that get rid of extra fluid in the body (diuretics). Muscle or nerve weakness, especially from: ?A spinal cord injury. ?Stroke. ?Multiple sclerosis. ?Parkinson's disease. Diabetes. Constipation. What increases the risk? You may be at greater risk for overactive bladder if you: Are an older adult. Smoke. Are going through menopause. Have prostate problems. Have a neurological disease, such as stroke, dementia, Parkinson's disease, or multiple sclerosis (MS). Eat or drink things that irritate the bladder. These include alcohol, spicy food, and caffeine. Are overweight or obese. What are the signs or symptoms? Symptoms of this condition include: Sudden, strong urge to urinate. Leaking urine. Urinating 8 or more times a day. Waking up to urinate 2 or more times a night. How is this diagnosed? Your health care provider may suspect overactive bladder based on your symptoms. He or she will diagnose this condition by: A physical exam and medical history. Blood or urine tests. You might need bladder or urine tests to help determine what is causing your overactive bladder. You might also need to see a health care provider who specializes in urinary tract problems (urologist). How is this treated? Treatment for overactive bladder depends on the cause of your condition and whether it is mild or severe. You can also make lifestyle changes at home. Options include: Bladder training. This may include: ?Learning to control the urge to urinate by following a schedule that directs you to urinate at regular intervals (timed voiding). ?Doing Kegel exercises to strengthen your pelvic floor muscles, which support your bladder. Toning these muscles can help you control urination, even if your bladder muscles are overactive. Special devices. This may include: ?Biofeedback, which uses sensors to help you become aware of your body's signals. ?Electrical stimulation, which uses electrodes placed inside the body (implanted) or outside the body. These electrodes send gentle pulses of electricity to strengthen the nerves or muscles that control the bladder. ?Women may use a plastic device that fits into the vagina and supports the bladder (pessary). Medicines. ?Antibiotics to treat bladder infection. ?Antispasmodics to stop the bladder from releasing urine at the wrong time. ?Tricyclic antidepressants to relax bladder muscles. ?Injections of botulinum toxin type A directly into the bladder tissue to relax bladder muscles. Lifestyle changes. This may include: ?Weight loss. Talk to your health care provider about weight loss methods that would work best for you. ?Diet changes. This may include reducing how much alcohol and caffeine you consume, or drinking fluids at different times of the day. ?Not smoking. Do not use any products that contain nicotine or tobacco, such as cigarettes and e-cigarettes. If you need help quitting, ask your health care provider. Surgery. ?A device may be implanted to help manage the nerve signals that control urination. ?An electrode may be implanted to stimulate electrical signals in the bladder. ?A procedure may be done to change the shape of the bladder. This is done only in very severe cases. Follow these instructions at home: Lifestyle Make any diet or lifestyle changes that are recommended by your health care provider. These may include: ?Drinking less fluid or drinking fluids at different times of the day. ?Cutting down on caffeine or alcohol. ?Doing Kegel exercises. ?Losing weight if needed. ?Eating a healthy and balanced diet to prevent constipation. This may include: ?Eating foods that are high in fiber, such as fresh fruits and vegetables, whole grains, and beans. ?Limiting foods that are high in fat and processed sugars, such as fried and sweet foods. General instructions Take jusa-atp-ptikccj and prescription medicines only as told by your health care provider. If you were prescribed an antibiotic medicine, take it as told by your health care provider. Do notstop taking the antibiotic even if you start to feel better. Use any implants or pessary as told by your health care provider. If needed, wear pads to absorb urine leakage. Keep a journal or log to track how much and when you drink and when you feel the need to urinate. This will help your health care provider monitor your condition. Keep all follow-up visits as told by your health care provider. This is important. Contact a health care provider if: You have a fever. Your symptoms do not get better with treatment. Your pain and discomfort get worse. You have more frequent urges to urinate. Get help right away if: You are not able to control your bladder. Summary Overactive bladder refers to a condition in which a person has a sudden need to pass urine. Several conditions may lead to an overactive bladder. Treatment for overactive bladder depends on the cause and severity of your condition. Follow your health care provider's instructions about lifestyle changes, doing Kegel exercises, keeping a journal, and taking medicines. This information is not intended to replace advice given to you by your health care provider. Make sure you discuss any questions you have with your health care provider. Document Released: 05/15/2010 Document Revised: 11/09/2019 Document Reviewed: 08/04/2018 [employer] Patient Education 2020 [employer]. 05/05/2022 11:51:58 Calorie Counting for Weight Loss Calorie Counting for Weight Loss Calories are units of energy. Your body needs a certain amount of calories from food to keep you going throughout the day. When you eat more calories than your body needs, your body stores the extra calories as fat. When you eat fewer calories than your body needs, your body villagomez fat to get the energy it needs. Calorie counting means keeping track of how many calories you eat and drink each day. Calorie counting can be helpful if you need to lose weight. If you make sure to eat fewer calories than your bodyneeds, you should lose weight. Ask your health care provider what a healthy weight is for you. For calorie counting to work, you will need to eat the right number of calories in a day in order to lose a healthy amount of weight per week. A dietitian can help you determine how many calories youneed in a day and will give you suggestions on how to reach your calorie goal. A healthy amount of weight to lose per week is usually 1 2 lb (0.5 0.9 kg). This usually means thatyour daily calorie intake should be reduced by 500 750 calories. Eating 1,200 1,500 calories per day can help most women lose weight. Eating 1,500 1,800 calories per day can help most men lose weight. What is my plan? My goal is to have calories per day. If I have this many calories per day, I should lose around pounds per week. What do I need to know about calorie counting? In order to meet your daily calorie goal, you will need to: Find out how many calories are in each food you would like to eat. Try to do this before you eat. Decide how much of the food you plan to eat. Write down what you ate and how many calories it had. Doing this is called keeping a food log. To successfully lose weight, it is important to balance calorie counting with a healthy lifestyle that includes regular activity. Aim for 150 minutes of moderate exercise (such as walking) or 75 minutes of vigorous exercise (such as running) each week. Where do I find calorie information? The number of calories in a food can be found on a Nutrition Facts label. If a food does not have aNutrition Facts label, try to look up the calories online or ask your dietitian for help. Remember that calories are listed per serving. If you choose to have more than one serving of a food, you will have to multiply the calories per serving by the amount of servings you plan to eat. Forexample, the label on a package of bread might say that a serving size is 1 slice and that there are 90 calories in a serving. If you eat 1 slice, you will have eaten 90 calories. If you eat 2 slices, you will have eaten 180 calories. How do I keep a food log? Immediately after each meal, record the following information in your food log: What you ate. Don't forget to include toppings, sauces, and other extras on the food. How much you ate. This can be measured in cups, ounces, or number of items. How many calories each food and drink had. The total number of calories in the meal. Keep your food log near you, such as in a small notebook in your pocket, or use a mobile al or website. Some programs will calculate calories for you and show you how many calories you have left forthe day to meet your goal. What are some calorie counting tips? Use your calories on foods and drinks that will fill you up and not leave you hungry: ?Some examples of foods that fill you up are nuts and nut butters, vegetables, lean proteins, and high-fiber foods like whole grains. High-fiber foods are foods with more than 5 g fiber per serving. ?Drinks such as sodas, specialty coffee drinks, alcohol, and juices have a lot of calories, yet do not fill you up. Eat nutritious foods and avoid empty calories. Empty calories are calories you get from foods or beverages that do not have many vitamins or protein, such as candy, sweets, and soda. It is better to have a nutritious high-calorie food (such as an avocado) than a food with few nutrients (such as a bag of chips). Know how many calories are in the foods you eat most often. This will help you calculate calorie counts faster. Pay attention to calories in drinks. Low-calorie drinks include water and unsweetened drinks. Pay attention to nutrition labels for low fat or fat free foods. These foods sometimes have thesame amount of calories or more calories than the full fat versions. They also often have added sugar, starch, or salt, to make up for flavor that was removed with the fat. Find a way of tracking calories that works for you. Get creative. Try different apps or programs ifwriting down calories does not work for you. What are some portion control tips? Know how many calories are in a serving. This will help you know how many servings of a certain food you can have. Use a measuring cup to measure serving sizes. You could also try weighing out portions on a kitchenscale. With time, you will be able to estimate serving sizes for some foods. Take some time to put servings of different foods on your favorite plates, bowls, and cups so you know what a serving looks like. Try not to eat straight from a bag or box. Doing this can lead to overeating. Put the amount you would like to eat in a cup or on a plate to make sure you are eating the right portion. Use smaller plates, glasses, and bowls to prevent overeating. Try not to multitask (for example, watch TV or use your computer) while eating. If it is time to eat, sit down at a table and enjoy your food. This will help you to know when you are full. It will also help you to be aware of what you are eating and how much you are eating. What are tips for following this plan? Reading food labels Check the calorie count compared to the serving size. The serving size may be smaller than what youare used to eating. Check the source of the calories. Make sure the food you are eating is high in vitamins and proteinand low in saturated and trans fats. Shopping Read nutrition labels while you shop. This will help you make healthy decisions before you decide to purchase your food. Make a grocery list and stick to it. Cooking Try to cook your favorite foods in a healthier way. For example, try baking instead of frying. Use low-fat dairy products. Meal planning Use more fruits and vegetables. Half of your plate should be fruits and vegetables. Include lean proteins like poultry and fish. How do I count calories when eating out? Ask for smaller portion sizes. Consider sharing an entree and sides instead of getting your own entree. If you get your own entree, eat only half. Ask for a box at the beginning of your meal and put the rest of your entree in it so you are not tempted to eat it. If calories are listed on the menu, choose the lower calorie options. Choose dishes that include vegetables, fruits, whole grains, low-fat dairy products, and lean protein. Choose items that are boiled, broiled, grilled, or steamed. Stay away from items that are buttered,battered, fried, or served with cream sauce. Items labeled crispy are usually fried, unless stated otherwise. Choose water, low-fat milk, unsweetened iced tea, or other drinks without added sugar. If you want an alcoholic beverage, choose a lower calorie option such as a glass of wine or light beer. Ask for dressings, sauces, and syrups on the side. These are usually high in calories, so you should limit the amount you eat. If you want a salad, choose a garden salad and ask for grilled meats. Avoid extra toppings like aburto, cheese, or fried items. Ask for the dressing on the side, or ask for olive oil and vinegar or lemon to use as dressing. Estimate how many servings of a food you are given. For example, a serving of cooked rice is cup orabout the size of half a baseball. Knowing serving sizes will help you be aware of how much food you are eating at restaurants. The list below tells you how big or small some common portion sizes arebased on everyday objects: ?1 oz 4 stacked dice. ?3 oz 1 deck of cards. ?1 tsp 1 . ?1 Tbsp a ping-pong ball. ?2 Tbsp 1 ping-pong ball. ? cup baseball. ?1 cup 1 baseball. Summary Calorie counting means keeping track of how many calories you eat and drink each day. If you eat fewer calories than your body needs, you should lose weight. A healthy amount of weight to lose per week is usually 1 2 lb (0.5 0.9 kg). This usually means reducing your daily calorie intake by 500 750 calories. The number of calories in a food can be found on a Nutrition Facts label. If a food does not have aNutrition Facts label, try to look up the calories online or ask your dietitian for help. Use your calories on foods and drinks that will fill you up, and not on foods and drinks that will leave you hungry. Use smaller plates, glasses, and bowls to prevent overeating. This information is not intended to replace advice given to you by your health care provider. Make sure you discuss any questions you have with your health care provider. Document Released: 07/19/2006 Document Revised: 04/07/2019 Document Reviewed: 06/18/2017 [employer] Patient Education 2020 [employer]. 05/05/2022 11:51:46 Clean Intermittent Catheterization, Female Clean Intermittent Catheterization, Female Clean intermittent catheterization (CIC) is a procedure to remove urine from the bladder by placinga small, flexible tube (catheter) into the bladder though the urethra. The urethra is a tube in thebody that carries urine from the bladder out of the body. CIC may be done when: You cannot completely empty your bladder on your own. This may be due to a blockage in the bladder or urethra. Your bladder leaks urine. This may happen when the muscles or nerves near the bladder are not working normally, and the bladder overflows. Your health care provider will show you how to perform CIC and will help you to feel comfortable performing this procedure at home. Your health care provider will also help you to get the home care supplies that are needed for this procedure. Supplies needed Germ-free (sterile), water-based lubricant. A container for urine collection. You may also use the toilet to dispose of urine from the catheter. A catheter. Your health care provider will determine the best size for you. ?Use this catheter size: Sterile gloves. Sterile gauze. Medicated sterile swabs. How to perform this procedure: Most people need CIC at least 4 times per day to adequately empty the bladder. Your health care provider will tell you how often you should perform CIC. Number of times per day to perform CIC: To perform CIC, follow these steps: 1.Wash your hands with soap and water. If soap and water are not available, use hand wastewater plant operator. 2.Prepare the supplies that you will use during the procedure. Open the catheter pack, the lubricant, and the pack of medicated sterile swabs. If you have been told to keep the procedure sterile, do not touch your supplies until you are wearing gloves. 3.Get in a comfortable position. It may be helpful to use a handheld mirror to look at the opening of your urethra. Possible positions include: Sitting on a toilet, a chair, or the edge of a bed. Standing next to a toilet with one foot on the toilet rim. Lying down with your head raised on pillows and your knees pointing to the ceiling. You may wish toplace a waterproof mat or pad under you. 4.If you are using a urine collection container, position it between your legs. 5.Urinate, if you are able. 6.Put on gloves. 7.Apply lubricant to about 2 inches (5 cm) of the tip of the catheter. 8.Set the catheter down on a clean, dry surface within reach. 9.Gently spread the folds of skin around your vagina (labia) with your non- dominant hand. For example, if you are right-handed, use your left hand to do this. With your other hand, clean the area around your urethra with medicated sterile swabs as told by your health care provider. 10.While keeping your labia spread apart, slowly insert the lubricated catheter straight into your urethra until urine flows freely. This is usually 2 3 inches (5 8 cm). 11.When urine starts to flow freely, insert the catheter 1 inch (3 cm) more. Allow urine to drain into the toilet or the urine collection container. 12.When urine stops flowing, slowly remove the catheter. 13.Note the color, amount, and odor of the urine. 14.Measure your urine and note the amount, if told by your health care provider. 15.Discard the urine in the toilet. 16.Wash your genital area with soap and water. Wipe from front to back. 17.If you are using a single-use catheter, discard the catheter and supplies. 18.Wash your hands with soap and water. 19.If you are using a reusable catheter, follow package instructions about how to clean the catheter after each use. What are the risks? Generally, this is a safe procedure, however problems may occur, including: Infection. Injury to the urethra. Irritation of the urethra. How often should I perform this procedure? Do CIC to empty your bladder every 4 6 hours or as often as told by your health care provider. ?If you have symptoms of too much urine in your bladder (overdistension) and you are not able to urinate, perform CIC. Symptoms of overdistension may include: ?Restlessness. ?Sweating or chills. ?Headache. ?Flushed or pale skin. ?Bloated lower abdomen. Follow these instructions at home: General instructions Drink enough fluid to keep your urine pale yellow. Dispose of a multiple-use catheter when it becomes dry, brittle, or cloudy. This usually happens after you use the catheter for 1 week. Avoid caffeine. Caffeine may make you need to urinate more frequently and more urgently. When traveling, bring extra supplies with you in case of delays. Keep supplies with you in a place that you can access easily. If traveling by plane: ?Make sure that the lubricant in your carry-on bag is less than 3.4 ounces (100 mL). ?Use a single-use catheter. It may be difficult to clean a reusable catheter in a small bathroom. Take mthr-jqp-fivpxup and prescription medicines only as told by your health care provider. Keep all follow-up visits as told by your health care provider. This is important. Contact a health care provider if you: Have problems performing CIC. Have urine leaking during CIC. Have: ?Dark or cloudy urine. ?Blood in your urine or in your catheter. ?A change in the smell of your urine or discharge. ?A burning feeling while you urinate. Feel nauseous or you vomit. Have pain in your abdomen, your back, or your sides below your ribs. Have swelling or redness around the opening of your urethra. Develop a rash or sores on your skin. Get help right away if you have: A fever. Symptoms that do not go away after 3 days. Symptoms that suddenly get worse. Severe pain. A decrease in the amount of urine that drains from your bladder. Summary Clean intermittent catheterization (CIC) is a procedure to remove urine from the bladder by placinga small, flexible tube (catheter) into the bladder though the urethra. Your health care provider will show you how to perform CIC and will help you to feel comfortable performing this procedure at home. Most people need CIC at least 4 times per day to adequately empty the bladder. This information is not intended to replace advice given to you by your health care provider. Make sure you discuss any questions you have with your health care provider. Document Released: 08/21/2011 Document Revised: 11/08/2019 Document Reviewed: 03/09/2019 [employer] Patient Education 2020 [employer]. Follow Up Care 04/16/2022 11:23:25 With:JERRELL EVANS, Tammy Burk, URL Address: [address] [place] [phone] When: Unknown Comments:Will schedule Cysto, Lt rg, left ureter, pos. stent [facility] 06-04-2022 Progress note Author Silvina Turner [facility] Note Date/Time January 03, 2022 12:10 pm [facility] [place] [id number] Hem/Onc Follow Up Note - OP Signed Patient: Alessandra Hardy MR#: [id number] : 1960 Acct:[id number] Age/Sex: 61 / F Type: REG RCR Copies to: Opal hightower Embudo Selena Miller,DO~ Subjective Date/Time of Service: Date of Service: 01/02/2022 Time of Service: 09:15 Chief Complaint: Patient is here today for 3 week follow up visit for elevated serum immunoglobulin free light chain level and go over urine studies HPI: 01/03/2022: Minnie was referred for marked elevation of her erythrocyte sedimentation rate. She has known history of multiple sclerosis and chronic erythema over her right anterior lai with nonhealing ulcer for over 5 years. She was noted to have elevated gammaglobulin without observed M spike on serum protein electrophoresis and mild elevation of free kappa/lambda light chain ratio (although noted to have elevation of both free kappa and free lambda lightchains. I completed her work-up for monoclonal gammopathy with laboratories 12/30/2020 showing no evidence of M spike and urine protein electrophoresis and repeat quantitative immunoglobulins showing elevation of both IgG and IgM with mild decline of free kappa from 105 to 68, free lambda from 49 to 33, and prior free kappa/lambda ratio 2.12 to 2.07. 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 At this time I do not feel she warrants bone marrow aspiration or biopsy and mayfollow-up with hematology on an as-needed basis, but she may be referred again if she has evidence of anemia, hypercalcemia, or worsening renal function. She does have chronic neuropathy more likely to be related to her multiple sclerosis. Patient expressed understanding of her results over this 25-minute moderate complexity follow-up visit to review complex medical testing, complete recommendations for nursing facility. ORIGINAL CONSULT 12/11/2021 This is a 61-year-old lady who has been residing at [facility] for about 3 years due to poor mobility from multiple sclerosis. She notes that she was diagnosed with MS at the age of 22 and has secondary progressive multiple sclerosis. She reports that she was on Copaxone about 10 years ago and has beenon ABC drugs but no current therapy. She notes chronic leg weakness and that over half of her body is chronically numb due to MS. She has not had any changein her chronic weakness for many years. She has a chronic cellulitis with a nonhealing wound over her right anterior lai since 2016. This area is not painful and she has not been on any active antibiotics. She reports a right ureter compromise and has to chronically uses straight catheterization. She denies any bone pain and does not know of any chronic renal disease. In reviewing recent laboratories, she has an elevated erythrocyte sedimentation rate of 86 but C-reactive protein is normal at 0.8. She does not have any anemia, significant renal dysfunction (eGFR 54), hypercalcemia, or any known bone lesions. She had an elevated gammaglobulin of 2.5 with M spike not observed on serum protein electrophoresis. She had free kappa and free lambda light chain elevations with mildly elevated free kappa/lambda light chain ratio of 2.12 (normal range is 0.26-1.65). I advised the patient that she should have further evaluation with urine proteinelectrophoresis, urine immunofixation, and urine creatinine level to determine if she has evidence of myeloma kidney. I will also repeat her free kappa/lambdalight chain ratio as her last studies were 2 months ago as well as quantitative immunoglobulins IgG, IgM, and IgA. It is likely that her chronic hypogammaglobulinemia with mild kappa/lambda light chain elevation is due to chronic inflammatory state due to her multiple sclerosis. If she has kappa/lambda light chain ratio greater than 5 there may be utility in performingbone marrow aspiration and biopsy, however I would recommend likely every 6-month observation in the absence of significant monoclonal spike, particularly if she does not have any other signs of myeloma such as anemia, renal dysfunction, hypercalcemia, or bone disease. Her neuropathy appears to be chronic and likely unrelated to monoclonal gammopathy or amyloidosis. Patient expressed understanding. 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 No recent weight change. HEAD AND NECK: Negative for changes in hearing and vision. Negative for mouth ulcers, nasal congestion and nasal drainage. PULMONARY: Negative for chest pain, cough and dyspnea. CARDIOVASCULAR: Negative for claudication and irregular heartbeat/palpitations. GASTROINTESTINAL: Negative for abdominal pain, constipation, decreased appetite,diarrhea, nausea or vomiting. GENITOURINARY: Negative for dysuria and hematuria. She does chronically straight cath due to neurologic issues. ENDOCRINE: Negative for cold intolerance and heat intolerance. CENTRAL NERVOUS SYSTEM: Completely dependent for transfers due to chronic numbness and weakness of the lower half of her body due to multiple sclerosis. No headaches or focal neurologic symptoms currently. Stable from baseline. PSYCHIATRIC: Negative for anxiety or depression. DERMATOLOGICAL: Remarkable for chronic erythema overlying her right anterior lai (covered with bandage due to chronic ulcer). Otherwise negative for pruritus and rash. Negative for suspicious skin lesions. MUSCULOSKELETAL: Negative for back pain and bone/joint symptoms. HEMATOLOGICAL: Negative for bleeding and easy bruising. Negative for history of transfusion or thromboembolic disease ALLERGY: Negative for environmental allergies and food allergies. PMFSH - History Attestation statement: The following information was validated with the patient. Source: Old Records Reviewed - Medical History Medical History: Medical History (Last Reviewed 01/03/22 @ 11:04 by Silvina Turner MD) Age-related osteoporosis without current pathological fracture Cellulitis of right lower limb Cognitive communication deficit Congenital mitral stenosis GERD without esophagitis History of falling Major depressive disorder, recurrent, unspecified Multiple sclerosis Muscle weakness (generalized) Neuromuscular dysfunction of bladder, unspecified Other abnormalities of gait and mobility Other seizures Personal history of (healed) traumatic fracture Syncope and collapse Transient cerebral ischemic attack, unspecified Unspecified lack of coordination Unsteadiness on feet - Family History Family History: Family History (Last Reviewed 01/03/22 @ 11:04 by Silvina Turner MD) Father Melanoma Mother Dementia - Social History Smoking Status: Former smoker Tobacco Type: cigarettes Substance Use Type: None Home Medications & Allergies Allergies adhesive tape Allergy (Verified 01/02/22 09:15) Unknown Reaction aspirin Allergy (Verified 01/02/22 09:15) Unknown Reaction Home Medications acetaminophen 500 mg tablet 500 mg PO Q6H PRN 04/23/21 [History Confirmed 01/02/22] artificial tears(yskezuq-pcakrbdx-pfxirjr) 0.1 %-0.3 %-0.2 % eye drops 1 drp EYE-BOTH QID PRN 04/23/21 [History Confirmed 01/02/22] fludrocortisone 0.1 mg tablet 0.1 mg PO DAILY 04/23/21 [History Confirmed 01/02/22] fluoxetine 10 mg capsule 10 mg PO DAILY 04/23/21 [History Confirmed 01/02/22] fluticasone propionate 50 mcg/actuation nasal spray,suspension 1 spray INTRANASAL DAILY 04/23/21 [History Confirmed 01/02/22] lamotrigine 100 mg tablet 100 mg PO DAILY 04/23/21 [History Confirmed 01/02/22] nortriptyline 10 mg capsule 20 mg PO DAILY 04/23/21 [History Confirmed 01/02/22] nystatin 100,000 unit/gram topical powder (Nyamyc) 1 applic TOPICAL DIRECTED 04/23/21 [History Confirmed 01/02/22] oxybutynin chloride 5 mg tablet 5 mg PO BID 04/23/21 [History Confirmed 01/02/22] pantoprazole 40 mg tablet,delayed release 40 mg PO DAILY 04/23/21 [History Confirmed 01/02/22] sennosides 8.6 mg capsule 8.6 mg PO DIRECTED PRN 04/23/21 [History Confirmed 01/02/22] cephalexin 250 mg capsule 250 mg PO DAILY 12/11/21 [History Confirmed 01/02/22] cholecalciferol (vitamin D3) 25 mcg (1,000 unit) tablet (Vitamin D3) 25 mcg PO DAILY 12/11/21 [History Confirmed 01/02/22] eucalyptus oil-aloe extr-lavender,janett oil-petrolatum top ointment (Vicks Babyrub) applic TOPICAL 12/11/21 [History] mineral oil-hydrophil petrolat topical ointment (Aquaphor) 1 applic TOPICAL TID 12/11/21 [History Confirmed 01/02/22] polyethylene glycol 3350 17 gram oral powder packet (Miralax) 17 g PO DAILY 12/11/21 [History Confirmed 01/02/22] Objective - Height/Weight Height/Weight: Height 5 ft 9 in Weight 98.43 kg - Vital Signs Vital Signs: 01/02/22 09:15 Temperature 97.1 F L Pulse Rate [Left Brachial] 95 H Respiratory Rate 16 Blood Pressure [Right Arm] 120/77 02 Sat by Pulse Oximetry 95 - Pain Abdomen Pain Intensity: 2 Physical Exam Narrative: CONSTITUTIONAL: The patient is in no acute distress. Physical exam was somewhatlimited as she was examined in wheelchair. HEAD / FACE: Normocephalic. EYES: Pupils are equal and reactive to light. Conjunctivae and lids are benign in appearance. Ocular movement intact. EARS: Hearing grossly intact. PSYCHIATRIC: No anxiety or evidence of depression. Full exam deferred, here for results review only. See exam below from original consult 12/11/2021 NOSE / MOUTH / THROAT: Nose, mouth, tongue and oropharynx are benign in appearance. No signs of inflammation. NECK / THYROID: Neck is supple. Thyroid is symmetrical, without thyromegaly, masses or palpable nodules. LYMPHATIC: No palpable cervical, supraclavicular, axillary, or inguinal adenopathy. RESPIRATORY: Normal to inspection. Lungs clear to auscultation and percussion. No wheezing, rales, rhonchi or rubs. Normal effort. CARDIOVASCULAR: Regular rate and rhythm. No murmurs, gallops, or rubs. VASCULAR: Carotid, radial, femoral and pedal pulses present bilaterally. No bruits. ABDOMEN: Bowel sounds normoactive. Soft, nontender and non-distended. No hepatosplenomegaly. No masses. GENITOURINARY: No CVA tenderness. No suprapubic fullness or tenderness. No groinadenopathy. No evidence of hernias. INTEGUMENTARY: The skin is remarkable for diffuse erythema overlying the right anterior lai (bandage was not removed to examine chronic ulcer). No rashes. No suspicious lesions for malignancy. BACK / SPINE: The back is nontender. MUSCULOSKELETAL: Normal musculature, no joint deformities or abnormalities, normal range of motion for all four extremities. EXTREMITIES: No edema, cyanosis or clubbing. No Doug sign. NEUROLOGICAL: Alert and oriented. Cranial nerves intact. She has motor weaknessand sensory deficits lower half of body consistent with her known multiple sclerosis. No speech deficits. - ECOG Performance Status ECOG Score: 3 - Limited ambulation due to MS Results - Labs Labs: Laboratories 12/30/2020 showing no evidence of M spike and urine protein electrophoresis and repeat quantitative immunoglobulins showing elevation of both IgG and IgM with mild decline of free kappa from 105 to 68, free lambda from 49 to 33, and prior free kappa/lambda ratio 2.12 to 2.07. - Impressions No imaging for review. Assessment and Plan (1) Elevated serum immunoglobulin free light chain level This is a 61-year-old lady who resides in a nursing facility due to diagnosis ofsecondary progressive multiple sclerosis (diagnosed at age 22, no active therapyreported for the last 10 years). She has chronic neuropathy which has not recently progressed. She also has a chronic nonhealing ulcerated lesion of the right anterior lai. She had recent serum protein electrophoresis which did notshow any serum M spike but kappa/lambda light chain analysis showed elevation ofboth light chain populations with ratio 2. Typically active myeloma is associated with light chain ratio is at least greater than 5-10, and is likely that this mild increase of kappa/lambda light chain ratio is due to her chronic inflammatory state either from multiple sclerosis or her chronic nonhealing ulcer. In addition she did have a recent erythrocyte sedimentation rate that was significantly elevated to 83. She does have chronic urinary retention issues and performs [id number] times daily. She does not have any anemia, worsening renal function, or hypercalcemia. I recommended sending urine protein electrophoresis with urine immunofixation and urine creatinine to calculate whether she has proteinuria or if she has a urine light chain monoclonality. If significant urinary light chain monoclonality is identified or repeat kappa/lambda light chain ratio showssignificant progression of serum light chains, she may benefit from bone marrow aspiration and biopsy to determine if she has progression to myeloma. If all ofthis work-up is negative and she only has a mildly elevated urine kappa/lambda light chain ratio without evidence of monoclonality, there is no benefit in performing bone marrow biopsy and likely no utility in routine monitoring of herkappa/lambda light chains. I explained this to her in detail and will follow-upwith her for in person or phone visit in about 3 weeks to review results and further follow-up recommendations. She expressed understanding over this moderate complexity 60-minute visit. 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 Elevation ofIgG and IgM gammaglobulins more likely related to her multiple sclerosis and shehad a decline of both free kappa, free lambda light chains as well as kappa/lambda light chain ratio over the last 2 months. As there is no evidence of monoclonal gammopathy, I do not recommend routinely following serum or urine protein electrophoresis unless she has worsening renal function, anemia, hypercalcemia, or bone complaints. She may follow-up in hematology on an as-needed basis. 25-minute moderate complexity follow-up for complex laboratory review. (2) Secondary progressive multiple sclerosis Currently resides at a intermediate and no active therapy at this time but followed by neurology. She denies any recent worsening of neurologic symptoms. (3) Paraparesis of both lower limbs Chronic paraparesis of lower limbs secondary to MS. (4) Nonhealing ulcer of right lower extremity Qualifiers: Non-pressure ulcer stage: unspecified non-pressure ulcer stage Qualified Code(s): L97.919 - Non-pressure chronic ulcer of unspecified part of right lowerleg with unspecified severity Patient reports chronic nonhealing ulcer, not examined today. Defer to chronic wound care nurse at her facility. - Time with Patient Time Spent with Patient (Follow Up Visit): 25 minutes Coordination of Care & Counseling Time: Greater than 50% of time spent with patient was for coordination of care (as documented) and [id number] counseling of patient and/or family. Dictated By: Silvina Turner MD DD/ 8 Signed By: <Electronically signed by MD Silvina Turner> 01/03/22 1110 [facility] Work Phone: [phone]) 564-715006-04-2022 [facility] [place] [address] Hem/Onc Follow Up Note - OP Signed Patient: Alessandra Hardy MR#: [id number] : 1960 Acct:[id number] Age/Sex: 61 / F Type: REG RCR Copies to: Opal hightower [facility] Neva Miller,DO~ Subjective Date/Time of Service: Date of Service: 01/02/2022 Time of Service: 09:15 Chief Complaint: Patient is here today for 3 week follow up visit for elevated serum immunoglobulinfree light chain level and go over urine studies HPI: 01/03/2022: Minnie was referred for marked elevation of her erythrocyte sedimentation rate. She hasknown history of multiple sclerosis and chronic erythema over her right anterior lai with nonhealing ulcer for over 5 years. She was noted to have elevated gammaglobulin without observed M spike on serum protein electrophoresis and mild elevation of free kappa/lambda light chain ratio (although noted to have elevation of both free kappa and free lambda lightchains. I completed her work-up for monoclonal gammopathy with laboratories 12/30/2020 showing no evidence of M spike and urine protein electrophoresis and repeat quantitative immunoglobulins showing elevation of both IgG and IgM with milddecline of free kappa from 105 to 68, free lambda from 49 to 33, and prior free kappa/lambda ratio 2.12 to 2.07. 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 At this time I do not feel she warrants bone marrow aspiration or biopsy and mayfollow-up with hematology on an as-needed basis, but she may be referred again if she has evidence of anemia, hypercalcemia, or worsening renal function. She does have chronic neuropathy more likely to be related to hermultiple sclerosis. Patient expressed understanding of her results over this 25-minute moderate complexity follow-up visit to review complex medical testing, complete recommendations for nursing facility. ORIGINAL CONSULT 12/11/2021 This is a 61-year-old lady who has been residing at [facility] for about 3 years due to poor mobility from multiple sclerosis. She notes that she was diagnosed with MS at the age of 22 and has secondary progressive multiple sclerosis. She reports that she was on Copaxone about 10 years ago and hasbeenon ABC drugs but no current therapy. She notes chronic leg weakness and that over half of herbody is chronically numb due to MS. She has not had any changein her chronic weakness for many years. She has a chronic cellulitis with a nonhealing wound over her right anterior lai since 2016. This area is not painful and she has not been on any active antibiotics. She reports a right ureter compromise and has to chronically uses straight catheterization. She denies any bone pain and does not know of any chronic renal disease. In reviewing recent laboratories, she has an elevated erythrocyte sedimentation rate of 86 but C- reactive protein is normal at 0.8. She does not have any anemia, significant renal dysfunction (eGFR 54), hypercalcemia, or any known bone lesions. She had an elevated gammaglobulin of 2.5 with M spike not observed on serum protein electrophoresis. She had free kappa and free lambda light chain elevations with mildly elevated free kappa/lambda light chain ratio of2.12 (normal range is 0.26-1.65). I advised the patient that she should have further evaluation with urine proteinelectrophoresis, urine immunofixation, and urine creatinine level to determine if she has evidence of myeloma kidney. Edi also repeat her free kappa/lambdalight chain ratio as her last studies were 2 months ago as well as quantitative immunoglobulins IgG, IgM, and IgA. It is likely that her chronic hypogammaglobulinemia with mild kappa/lambda light chain elevation is due to chronic inflammatory state due to her multiple sclerosis. If she has kappa/lambda light chain ratio greater than 5 there may be utility in p erformingbone marrow aspiration and biopsy, however I would recommend likely every 6-month observation in the absence of significant monoclonal spike, particularly if she does not have any other signs of myeloma such as anemia, renal dysfunction, hypercalcemia, or bone disease. Her neuropathy appears to be chronic and likely unrelated to monoclonal gammopathy or amyloidosis. Patient expressed understanding. 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 No recent weight change. HEAD AND NECK: Negative for changes in hearing and vision. Negative for mouth ulcers, nasal congestion and nasal drainage. PULMONARY: Negative for chest pain, cough and dyspnea. CARDIOVASCULAR: Negative for claudication and irregular heartbeat/palpitations. GASTROINTESTINAL: Negative for abdominal pain, constipation, decreased appetite,diarrhea, nausea orvomiting. GENITOURINARY: Negative for dysuria and hematuria. She does chronically straight cath due to neurologic issues. ENDOCRINE: Negative for cold intolerance and heat intolerance. CENTRAL NERVOUS SYSTEM: Completely dependent for transfers due to chronic numbness and weakness of the lower half of her body due to multiple sclerosis. No headaches or focal neurologic symptoms currently. Stable from baseline. PSYCHIATRIC: Negative for anxiety or depression. DERMATOLOGICAL: Remarkable for chronic erythema overlying her right anterior lai (covered with bandage due to chronic ulcer). Otherwise negative for pruritus and rash. Negative for suspicious skin lesions. MUSCULOSKELETAL: Negative for back pain and bone/joint symptoms. HEMATOLOGICAL: Negative for bleeding and easy bruising. Negative for history of transfusion or thromboembolic disease ALLERGY: Negative for environmental allergies and food allergies. [facility] - History Attestation statement: The following information was validated with the patient. Source: Old Records Reviewed - Medical History Medical History: Medical History (Last Reviewed 01/03/22 @ 11:04 by Silvina Turner MD) Age-related osteoporosis without current pathological fracture Cellulitis of right lower limb Cognitive communication deficit Congenital mitral stenosis GERD without esophagitis History of falling Major depressive disorder, recurrent, unspecified Multiple sclerosis Muscle weakness (generalized) Neuromuscular dysfunction of bladder, unspecified Other abnormalities of gait and mobility Other seizures Personal history of (healed) traumatic fracture Syncope and collapse Transient cerebral ischemic attack, unspecified Unspecified lack of coordination Unsteadiness on feet - Family History Family History: Family History (Last Reviewed 01/03/22 @ 11:04 by Silvina Turner MD) Father Melanoma Mother Dementia - Social History Smoking Status: Former smoker Tobacco Type: cigarettes Substance Use Type: None Home Medications & Allergies Allergies adhesive tape Allergy (Verified 01/02/22 09:15) Unknown Reaction aspirin Allergy (Verified 01/02/22 09:15) Unknown Reaction Home Medications acetaminophen 500 mg tablet 500 mg PO Q6H PRN 04/23/21 [History Confirmed 01/02/22] artificial tears(mikuzvr-ihjueujh-osqnifa) 0.1 %-0.3 %-0.2 % eye drops 1 drp EYE-BOTH QID PRN 04/23/21 [History Confirmed 01/02/22] fludrocortisone 0.1 mg tablet 0.1 mg PO DAILY 04/23/21 [History Confirmed 01/02/22] fluoxetine 10 mg capsule 10 mg PO DAILY 04/23/21 [History Confirmed 01/02/22] fluticasone propionate 50 mcg/actuation nasal spray,suspension 1 spray INTRANASAL DAILY 04/23/21 [History Confirmed 01/02/22] lamotrigine 100 mg tablet 100 mg PO DAILY 04/23/21 [History Confirmed 01/02/22] nortriptyline 10 mg capsule 20 mg PO DAILY 04/23/21 [History Confirmed 01/02/22] nystatin 100,000 unit/gram topical powder (Nyamyc) 1 applic TOPICAL DIRECTED 04/23/21 [History Confirmed 01/02/22] oxybutynin chloride 5 mg tablet 5 mg PO BID 04/23/21 [History Confirmed 01/02/22] pantoprazole 40 mg tablet,delayed release 40 mg PO DAILY 04/23/21 [History Confirmed 01/02/22] sennosides 8.6 mg capsule 8.6 mg PO DIRECTED PRN 04/23/21 [History Confirmed 01/02/22] cephalexin 250 mg capsule 250 mg PO DAILY 12/11/21 [History Confirmed 01/02/22] cholecalciferol (vitamin D3) 25 mcg (1,000 unit) tablet (Vitamin D3) 25 mcg PO DAILY 12/11/21 [History Confirmed 01/02/22] eucalyptus oil-aloe extr-lavender,janett oil-petrolatum top ointment (Vicks Babyrub) applic TOPICAL 12/11/21 [History] mineral oil-hydrophil petrolat topical ointment (Aquaphor) 1 applic TOPICAL TID 12/11/21 [History Confirmed 01/02/22] polyethylene glycol 3350 17 gram oral powder packet (Miralax) 17 g PO DAILY 12/11/21 [History Confirmed 01/02/22] Objective - Height/Weight Height/Weight: Height 5 ft 9 in Weight 98.43 kg - Vital Signs Vital Signs: 01/02/22 09:15 Temperature 97.1 F L Pulse Rate [Left Brachial] 95 H Respiratory Rate 16 Blood Pressure [Right Arm] 120/77 02 Sat by Pulse Oximetry 95 - Pain Abdomen Pain Intensity: 2 Physical Exam Narrative: CONSTITUTIONAL: The patient is in no acute distress. Physical exam was somewhatlimited as she was examined in wheelchair. HEAD / FACE: Normocephalic. EYES: Pupils are equal and reactive to light. Conjunctivae and lids are benign in appearance. Ocular movement intact. EARS: Hearing grossly intact. PSYCHIATRIC: No anxiety or evidence of depression. Full exam deferred, here for results review only. See exam below from original consult 12/11/2021 NOSE / MOUTH / THROAT: Nose, mouth, tongue and oropharynx are benign in appearance. No signs of inflammation. NECK / THYROID: Neck is supple. Thyroid is symmetrical, without thyromegaly, masses or palpable nodules. LYMPHATIC: No palpable cervical, supraclavicular, axillary, or inguinal adenopathy. RESPIRATORY: Normal to inspection. Lungs clear to auscultation and percussion. No wheezing, rales, rhonchi or rubs. Normal effort. CARDIOVASCULAR: Regular rate and rhythm. No murmurs, gallops, or rubs. VASCULAR: Carotid, radial, femoral and pedal pulses present bilaterally. No bruits. ABDOMEN: Bowel sounds normoactive. Soft, nontender and non-distended. No hepatosplenomegaly. No masses. GENITOURINARY: No CVA tenderness. No suprapubic fullness or tenderness. No groinadenopathy. No evidence of hernias. INTEGUMENTARY: The skin is remarkable for diffuse erythema overlying the right anterior lai (bandage was not removed to examine chronic ulcer). No rashes. No suspicious lesions for malignancy. BACK / SPINE: The back is nontender. MUSCULOSKELETAL: Normal musculature, no joint deformities or abnormalities, normal range of motion for all four extremities. EXTREMITIES: No edema, cyanosis or clubbing. No Doug sign. NEUROLOGICAL: Alert and oriented. Cranial nerves intact. She has motor weaknessand sensory deficitslower half of body consistent with her known multiple sclerosis. No speech deficits. - ECOG Performance Status ECOG Score: 3 - Limited ambulation due to MS Results - Labs Labs: Laboratories 12/30/2020 showing no evidence of M spike and urine protein electrophoresis and repeat quantitative immunoglobulins showing elevation of both IgG and IgM with mild decline of free kappa from 105 to 68, free lambda from 49 to 33, and prior free kappa/lambda ratio 2.12 to 2.07. - Impressions No imaging for review. Assessment and Plan (1) Elevated serum immunoglobulin free light chain level This is a 61-year-old lady who resides in a nursing facility due to diagnosis ofsecondary progressive multiple sclerosis (diagnosed at age 22, no active therapyreported for the last 10 years). She has chronic neuropathy which has not recently progressed. She also has a chronic nonhealing ulcerated lesion of the right anterior lai. She had recent serum protein electrophoresis which did notshow any serum M spike but kappa/lambda light chain analysis showed elevation ofboth light chain populations with ratio 2. Typically active myeloma is associated with light chain ratio is at least greater than 5-10, and is likely that this mild increase of kappa/lambda light chain ratio is due to her chronic inflammatory state either from multiple sclerosis or her chronic nonhealing ulcer. In addition she did have a recent erythrocyte sedimentation rate that was significantly elevated to 83. She does have chronic urinary retention issues and performs njxh-wsntyykmrrflgji1-2 times daily. She does not have any anemia, worsening renal function, or hypercalcemia. I recommended sending urine protein electrophoresis with urine immunofixation and urine creatinine to calculate whether she has proteinuria or if she has a urine light chain monoclonality. If significant urinary light chain monoclonality is identified or repeat kappa/lambda light chain ratio showssignificant progression of serum light chains, she may benefit from bone marrow aspiration and biopsy to determine if she has progression to myeloma. If all ofthis work-up is negative and she only has a mildly elevated urine kappa/lambda light chain ratio without evidence of monoclonality, there is no benefit in performing bone marrow biopsy and likely no utility in routine monitoring of herkappa/lambda light chains. I explained this to her in detail and will follow-upwith her for in person or phone visit in about 3 weeks toreview results and further follow-up recommendations. She expressed understanding over this moderate complexity 60-minute visit. 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 Elevation ofIgG and IgM gammaglobulins more likely related to her multiple sclerosis and shehad a decline of both free kappa, free lambda light chains as well as kappa/lambda light chain ratio over the last 2 months. As there is no evidence of monoclonal gammopathy, I do not recommend routinely following serum or urine protein electrophoresis unless she has worsening renal function, anemia, hypercalcemia, or bone complaints. She may follow-up in hematology on an as- needed basis. 25-minute moderate complexity follow-up for complex laboratory review. (2) Secondary progressive multiple sclerosis Currently resides at a intermediate and no active therapy at this time but followed by neurology. She denies any recent worsening of neurologic symptoms. (3) Paraparesis of both lower limbs Chronic paraparesis of lower limbs secondary to MS. (4) Nonhealing ulcer of right lower extremity Qualifiers: Non-pressure ulcer stage: unspecified non-pressure ulcer stage Qualified Code(s): L97.919 - Non-pressure chronic ulcer of unspecified part of right lowerleg with unspecified severity Patient reports chronic nonhealing ulcer, not examined today. Defer to chronic wound care nurse at her facility. - Time with Patient Time Spent with Patient (Follow Up Visit): 25 minutes Coordination of Care & Counseling Time: Greater than 50% of time spent with patient was for coordination of care (as documented) and rjqq-ul-tcpk counseling of patient and/or family. Dictated By: Silvina Turner MD DD/ [id number] Signed By: 01/03/22 1110 [facility]05-13-2022 Consult note Author Silvina Turner [facility] Note Date/Time December 12, 2021 5:20p m [facility] [place] [id number] Hem/Onc Consult Note - OP Signed Patient: Alessandra Hardy MR#: [id number] : 1960 Acct:[id number] Age/Sex: 61 / F Type: REG RCR Copies to: Neva Miller DO~ HPI Date/Time of Service: Date of Service: 12/11/2021 Time of Service: 11:14 Referring Provider/PCP: Referring Provider: Neva Miller DO PCP: Neva Miller DO - History of Present Illness Reason for Consultation: Patient referred by Dr. Miller from the [facility] for abnormal light chain protein. Chief Complaint: Patient is here today for a referral for abnormal light chain protein HPI: Dear Dr. Miller, I had the great pleasure of seeing your patient in consultation. Thank you verymuch for your referral. As you know this is a 61-year-old lady who has been residing at the [facility] for about 3 years due to poor mobility from multiple sclerosis. She notes that she was diagnosed with MS at the age of 22 and has secondary progressive multiple sclerosis. She reports that she was on Copaxone about 10 years ago and has been on ABC drugs but no current therapy. She notes chronic leg weakness and that over half of her body is chronically numb due to MS. She has not had any change in her chronic weakness for many years. She has a chronic cellulitis with a nonhealing wound over her right anterior lai since 2016. This area is not painful and she has not been on any active antibiotics. She reports a right ureter compromise and has to chronically uses straight catheterization. She denies any bone pain and does not know of any chronic renal disease. In reviewing recent laboratories, she has an elevated erythrocyte sedimentation rate of 86 but C-reactive protein is normal at 0.8. She does not have any anemia, significant renal dysfunction (eGFR 54), hypercalcemia, or any known bone lesions. She had an elevated gammaglobulin of 2.5 with M spike not observed on serum protein electrophoresis. She had free kappa and free lambda light chain elevations with mildly elevated free kappa/lambda light chain ratio of 2.12 (normal range is 0.26-1.65). I advised the patient that she should have further evaluation with urine proteinelectrophoresis, urine immunofixation, and urine creatinine level to determine if she has evidence of myeloma kidney. I will also repeat her free kappa/lambdalight chain ratio as her last studies were 2 months ago as well as quantitative immunoglobulins IgG, IgM, and IgA. It is likely that her chronic hypogammaglobulinemia with mild kappa/lambda light chain elevation is due to chronic inflammatory state due to her multiple sclerosis. If she has kappa/lambda light chain ratio greater than 5 there may be utility in performing bone marrow aspiration and biopsy, however I would recommend likely every 6-month observation in the absence of significant monoclonal spike, particularly if she does not have any other signs of myeloma such as anemia, renal dysfunction, hypercalcemia, or bone disease. Her neuropathy appears to be chronic and likelyunrelated to monoclonal gammopathy or amyloidosis. Patient expressed understanding. [facility] - History Attestation statement: The following information was validated with the patient. Source: Old Records Reviewed - Medical History Medical History: Medical History (Last Reviewed 12/12/21 @ 16:05 by Silvina Turner MD) Age-related osteoporosis without current pathological fracture Cellulitis of right lower limb Cognitive communication deficit Congenital mitral stenosis GERD without esophagitis History of falling Major depressive disorder, recurrent, unspecified Multiple sclerosis Muscle weakness (generalized) Neuromuscular dysfunction of bladder, unspecified Other abnormalities of gait and mobility Other seizures Personal history of (healed) traumatic fracture Syncope and collapse Transient cerebral ischemic attack, unspecified Unspecified lack of coordination Unsteadiness on feet - Family History Family History: Family History (Last Reviewed 12/12/21 @ 16:05 by Silvina Turner MD) Father Melanoma Mother Dementia - Social History Smoking Status: Former smoker Tobacco Type: cigarettes Substance Use Type: None Home Medications & Allergies Allergies adhesive tape Allergy (Verified 12/11/21 11:11) Unknown Reaction aspirin Allergy (Verified 12/11/21 11:11) Unknown Reaction Home Medications acetaminophen 500 mg tablet 500 mg PO Q6H PRN 04/23/21 [History Confirmed 12/11/21] artificial tears(mveehti-tbkzstxy-fvdgpuq) 0.1 %-0.3 %-0.2 % eye drops 1 drp EYE-BOTH QID PRN 04/23/21 [History Confirmed 12/11/21] fludrocortisone 0.1 mg tablet 0.1 mg PO DAILY 04/23/21 [History Confirmed 12/11/21] fluoxetine 10 mg capsule 10 mg PO DAILY 04/23/21 [History Confirmed 12/11/21] fluticasone propionate 50 mcg/actuation nasal spray,suspension 1 spray INTRANASAL DAILY 04/23/21 [History Confirmed 12/11/21] lamotrigine 100 mg tablet 100 mg PO DAILY 04/23/21 [History Confirmed 12/11/21] nortriptyline 10 mg capsule 20 mg PO DAILY 04/23/21 [History Confirmed 12/11/21] nystatin 100,000 unit/gram topical powder (Nyamyc) 1 applic TOPICAL DIRECTED 04/23/21 [History Confirmed 12/11/21] oxybutynin chloride 5 mg tablet 5 mg PO BID 04/23/21 [History Confirmed 12/11/21] pantoprazole 40 mg tablet,delayed release 40 mg PO DAILY 04/23/21 [History Confirmed 12/11/21] sennosides 8.6 mg capsule 8.6 mg PO DIRECTED PRN 04/23/21 [History Confirmed 12/11/21] cephalexin 250 mg capsule 250 mg PO DAILY 12/11/21 [History Confirmed 12/11/21] cholecalciferol (vitamin D3) 25 mcg (1,000 unit) tablet (Vitamin D3) 25 mcg PO DAILY 12/11/21 [History Confirmed 12/11/21] eucalyptus oil-aloe extr-lavender,janett oil-petrolatum top ointment (Vicks Babyrub) applic TOPICAL 12/11/21 [History] mineral oil-hydrophil petrolat topical ointment (Aquaphor) 1 applic TOPICAL TID 12/11/21 [History Confirmed 12/11/21] polyethylene glycol 3350 17 gram oral powder packet (Miralax) 17 g PO DAILY 12/11/21 [History Confirmed 12/11/21] Subjective Data - Diagnosis DIAGNOSIS: Multiple sclerosis Chronic urinary obstructive issues with straight catheterization 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 No recent weight change. HEAD AND NECK: Negative for changes in hearing and vision. Negative for mouth ulcers, nasal congestion and nasal drainage. PULMONARY: Negative for chest pain, cough and dyspnea. CARDIOVASCULAR: Negative for claudication and irregular heartbeat/palpitations. GASTROINTESTINAL: Negative for abdominal pain, constipation, decreased appetite,diarrhea, nausea or vomiting. GENITOURINARY: Negative for dysuria and hematuria. She does chronically straight cath due to neurologic issues. ENDOCRINE: Negative for cold intolerance and heat intolerance. CENTRAL NERVOUS SYSTEM: Completely dependent for transfers due to chronic numbness and weakness of the lower half of her body due to multiple sclerosis. No headaches or focal neurologic symptoms currently. Stable from baseline. PSYCHIATRIC: Negative for anxiety or depression. DERMATOLOGICAL: Remarkable for chronic erythema overlying her right anterior lai (covered with bandage due to chronic ulcer). Otherwise negative for pruritus and rash. Negative for suspicious skin lesions. MUSCULOSKELETAL: Negative for back pain and bone/joint symptoms. HEMATOLOGICAL: Negative for bleeding and easy bruising. Negative for history of transfusion or thromboembolic disease ALLERGY: Negative for environmental allergies and food allergies. Objective - Height/Weight Height/Weight: Height 5 ft 9 in Weight 96.615 kg - Vital Signs Vital Signs: 12/11/21 11:07 Temperature 97.5 F L Pulse Rate [Left Brachial] 83 Respiratory Rate 16 Blood Pressure [Right Arm] 113/77 02 Sat by Pulse Oximetry 96 Physical Exam Narrative: CONSTITUTIONAL: The patient is in no acute distress. Physical exam was somewhatlimited as she was examined in wheelchair. HEAD / FACE: Normocephalic. EYES: Pupils are equal and reactive to light. Conjunctivae and lids are benign in appearance. Ocular movement intact. EARS: Hearing grossly intact. NOSE / MOUTH / THROAT: Nose, mouth, tongue and oropharynx are benign in appearance. No signs of inflammation. NECK / THYROID: Neck is supple. Thyroid is symmetrical, without thyromegaly, masses or palpable nodules. LYMPHATIC: No palpable cervical, supraclavicular, axillary, or inguinal adenopathy. RESPIRATORY: Normal to inspection. Lungs clear to auscultation and percussion. No wheezing, rales, rhonchi or rubs. Normal effort. CARDIOVASCULAR: Regular rate and rhythm. No murmurs, gallops, or rubs. VASCULAR: Carotid, radial, femoral and pedal pulses present bilaterally. No bruits. ABDOMEN: Bowel sounds normoactive. Soft, nontender and non-distended. No hepatosplenomegaly. No masses. GENITOURINARY: No CVA tenderness. No suprapubic fullness or tenderness. No groinadenopathy. No evidence of hernias. INTEGUMENTARY: The skin is remarkable for diffuse erythema overlying the right anterior lai (bandage was not removed to examine chronic ulcer). No rashes. No suspicious lesions for malignancy. BACK / SPINE: The back is nontender. MUSCULOSKELETAL: Normal musculature, no joint deformities or abnormalities, normal range of motion for all four extremities. EXTREMITIES: No edema, cyanosis or clubbing. No Doug sign. NEUROLOGICAL: Alert and oriented. Cranial nerves intact. She has motor weaknessand sensory deficits lower half of body consistent with her known multiple sclerosis. No speech deficits. PSYCHIATRIC: No anxiety or evidence of depression. - ECOG Performance Status ECOG Score: 3 - Due to limited ambulation from MS Results - Labs Labs: 10/15/2021: White blood cells 4500, hemoglobin 12.7, hematocrit 38, platelet count 314,000, absolute neutrophil count 2000 ESR 86, CRP 0.8 Sodium 139, potassium 4.8, BUN 14, creatinine 1.08, estimated EGFR (non-AA) 54, glucose 93, calcium 8.9, total bilirubin 0.4, AST 22, ALT 16, alkaline phosphatase 105, total protein 8.5, albumin 3.6 Serum protein electrophoresis with M spike not observed (no immunofixation reported) Free kappa 105 (normal 3.3-19.4), free lambda 49.6 (normal 5.7-26.3), free kappa/lambda ratio 2.12 (0.26-1.65) - Impressions MR/MR head/brain wo/w con IMPRESSION: 1. Parenchymal volume loss. 2. Fairly extensive cerebral white matter changes suspicious for demyelination related to multiple sclerosis. There may also be underlying chronic microvascular ischemic disease. 3. No acute intracranial abnormality. 4. No intracranial mass or abnormal enhancement. 5. Sphenoid sinusitis. Impression dictated by: Colt Pisano Jr., M.D.09/01/2021 12:[address]/CT abdomen pelvis wo/w con IMPRESSION: Dilatation of the LEFT intrarenal collecting system and ureter without obstructing stone. Wall thickening of the LEFT adrenal collecting systemand ureter. Irregular wall thickening of the urinary bladder. This may be secondary to inflammatory or infectious changes. Other etiologies may need to beexcluded. No RIGHT nephrolithiasis or obstructive uropathy. Nonvisualization of the appendix without pericecal abnormality. Moderate stool.. Consider constipation. Impression dictated by: Woody Burkett M.D.10/02/2021 12:10 PM Assessment and Plan (1) Elevated serum immunoglobulin free light chain level This is a 61-year-old lady who resides in a nursing facility due to diagnosis ofsecondary progressive multiple sclerosis (diagnosed at age 22, no active therapyreported for the last 10 years). She has chronic neuropathy which has not recently progressed. She also has a chronic nonhealing ulcerated lesion of the right anterior lai. She had recent serum protein electrophoresis which did notshow any serum M spike but kappa/lambda light chain analysis showed elevation ofboth light chain populations with ratio 2. Typically active myeloma is associated with light chain ratio is at least greater than 5-10, and is likely that this mild increase of kappa/lambda light chain ratio is due to her chronic inflammatory state either from multiple sclerosis or her chronic nonhealing ulcer. In addition she did have a recent erythrocyte sedimentation rate that was significantly elevated to 83. She does have chronic urinary retention issues and performs oqpq-eqavqbtstnhraon0-3 times daily. She does not have any anemia, worsening renal function, or hypercalcemia. I recommended sending urine protein electrophoresis with urine immunofixation and urine creatinine to calculate whether she has proteinuria or if she has a urine light chain monoclonality. If significant urinary light chain monoclonality is identified or repeat kappa/lambda light chain ratio showssignificant progression of serum light chains, she may benefit from bone marrow aspiration and biopsy to determine if she has progression to myeloma. If all ofthis work-up is negative and she only has a mildly elevated urine kappa/lambda light chain ratio without evidence of monoclonality, there is no benefit in performing bone marrow biopsy and likely no utility in routine monitoring of herkappa/lambda light chains. I explained this to her in detail and will follow-upwith her for in person or phone visit in about 3 weeks to review results and further follow-up recommendations. She expressed understanding over this moderate complexity 60-minute visit. I would like to thank you very much for the courtesy of this referral. I will keep you up-to-date with this patient's progress. Should you have any questionsregarding the management of this patient, please do not hesitate to contact me. Sincerely, Silvina Turner MD, FACP Medical Oncology (2) Secondary progressive multiple sclerosis Currently resides at a intermediate and no active therapy at this time but followed by neurology. She denies any recent worsening of neurologic symptoms. (3) Paraparesis of both lower limbs Chronic paraparesis of lower limbs secondary to MS. (4) Nonhealing ulcer of right lower extremity Qualifiers: Non-pressure ulcer stage: unspecified non-pressure ulcer stage Qualified Code(s): L97.919 - Non-pressure chronic ulcer of unspecified part of right lowerleg with unspecified severity Patient reports chronic nonhealing ulcer, not examined today. Defer to chronic wound care nurse at her facility. - Time with Patient Total Time Spent with Patient (Consult): 60 mins or more - 45 minutes [id number] for exam and discussion of work-up, 15 minutes for outside records review. Coordination of Care & Counseling Time: Greater than 50% of time spent with patient was for coordination of care (as documented) and ytrz-[id number] counseling of patient and/or family. Dictated By: Silvina Turner MD DD/ [id number] Signed By: <Electronically signed by MD Silvina Turner> 12/12/21 [address] [facility] Work Phone: [phone] [facility] [place] [address] Hem/Onc Consult Note - OP Signed Patient: Alessandra Hardy MR#: [id number] : 1960 Acct:[id number] Age/Sex: 61 / F Type: REG RCR Copies to: Neva Miller DO~ HPI Date/Time of Service: Date of Service: 12/11/2021 Time of Service: 11:14 Referring Provider/PCP: Referring Provider: Neva Miller DO PCP: Neva Miller DO - History of Present Illness Reason for Consultation: Patient referred by Dr. Miller from the [facility] for abnormal light chain protein. Chief Complaint: Patient is here today for a referral for abnormal light chain protein HPI: Dear Dr. Miller, I had the great pleasure of seeing your patient in consultation. Thank you verymuch for your referral. As you know this is a 61-year-old lady who has been residing at the [facility] for about 3 years due to poor mobility from multiple sclerosis. She notes that she was diagnosed with MS at the age of 22 and has secondary progressive multiple sclerosis. She reports that she was on Copaxone about 10 years ago and has been on ABC drugs but no current therapy. She notes chronic leg weakness and that over half of her body is chronically numb due to MS. She has not had any change in her chronic weakness for many years. She has a chronic cellulitis with a nonhealing wound over her right anterior lai since 2016. This area is not painful and she has not been on any active antibiotics. She reports a right ureter compromise and has to chronically uses straight catheterization. She denies any bonepain and does not know of any chronic renal disease. In reviewing recent laboratories, she has an elevated erythrocyte sedimentation rate of 86 but C-reactive protein is normal at 0.8. She does not have any anemia, significant renal dysfunction (eGFR 54), hypercalcemia, or any known bone lesions. She had an elevated gammaglobulin of 2.5 with M spike not observed on serum protein electrophoresis. She had free kappa and free lambda light chain elevations with mildly elevated free kappa/lambda light chain ratio of 2.12 (normal range is 0.26-1.65). I advised the patient that she should have further evaluation with urine proteinelectrophoresis, urine immunofixation, and urine creatinine level to determine if she has evidence of myeloma kidney. Iwill also repeat her free kappa/lambdalight chain ratio as her last studies were 2 months ago as well as quantitative immunoglobulins IgG, IgM, and IgA. It is likely that her chronic hypogammaglobulinemia with mild kappa/lambda light chain elevation is due to chronic inflammatory state due to her multiple sclerosis. If she has kappa/lambda light chain ratio greater than 5 there may be utility in performing bone marrow aspiration and biopsy, however I would recommend likely every 6- month observation in the absence of significant monoclonal spike, particularly if she does not have any other signs of myeloma such as anemia, renal dysfunction, hypercalcemia, or bone disease. Her neuropathy appears to be chronic and likelyunrelated to monoclonal gammopathy or amyloidosis. Patient expressed understanding. [facility] - History Attestation statement: The following information was validated with the patient. Source: Old Records Reviewed - Medical History Medical History: Medical History (Last Reviewed 12/12/21 @ 16:05 by Silvina Turner MD) Age-related osteoporosis without current pathological fracture Cellulitis of right lower limb Cognitive communication deficit Congenital mitral stenosis GERD without esophagitis History of falling Major depressive disorder, recurrent, unspecified Multiple sclerosis Muscle weakness (generalized) Neuromuscular dysfunction of bladder, unspecified Other abnormalities of gait and mobility Other seizures Personal history of (healed) traumatic fracture Syncope and collapse Transient cerebral ischemic attack, unspecified Unspecified lack of coordination Unsteadiness on feet - Family History Family History: Family History (Last Reviewed 12/12/21 @ 16:05 by Silvina Turner MD) Father Melanoma Mother Dementia - Social History Smoking Status: Former smoker Tobacco Type: cigarettes Substance Use Type: None Home Medications & Allergies Allergies adhesive tape Allergy (Verified 12/11/21 11:11) Unknown Reaction aspirin Allergy (Verified 12/11/21 11:11) Unknown Reaction Home Medications acetaminophen 500 mg tablet 500 mg PO Q6H PRN 04/23/21 [History Confirmed 12/11/21] artificial tears(grsogto-refswebs-ahcktxp) 0.1 %-0.3 %-0.2 % eye drops 1 drp EYE-BOTH QID PRN 04/23/21 [History Confirmed 12/11/21] fludrocortisone 0.1 mg tablet 0.1 mg PO DAILY 04/23/21 [History Confirmed 12/11/21] fluoxetine 10 mg capsule 10 mg PO DAILY 04/23/21 [History Confirmed 12/11/21] fluticasone propionate 50 mcg/actuation nasal spray,suspension 1 spray INTRANASAL DAILY 04/23/21 [History Confirmed 12/11/21] lamotrigine 100 mg tablet 100 mg PO DAILY 04/23/21 [History Confirmed 12/11/21] nortriptyline 10 mg capsule 20 mg PO DAILY 04/23/21 [History Confirmed 12/11/21] nystatin 100,000 unit/gram topical powder ([facility]) 1 applic TOPICAL DIRECTED 04/23/21 [History Confirmed 12/11/21] oxybutynin chloride 5 mg tablet 5 mg PO BID 04/23/21 [History Confirmed 12/11/21] pantoprazole 40 mg tablet,delayed release 40 mg PO DAILY 04/23/21 [History Confirmed 12/11/21] sennosides 8.6 mg capsule 8.6 mg PO DIRECTED PRN 04/23/21 [History Confirmed 12/11/21] cephalexin 250 mg capsule 250 mg PO DAILY 12/11/21 [History Confirmed 12/11/21] cholecalciferol (vitamin D3) 25 mcg (1,000 unit) tablet (Vitamin D3) 25 mcg PO DAILY 12/11/21 [History Confirmed 12/11/21] eucalyptus oil-aloe extr-lavender,janett oil-petrolatum top ointment (Vicks Babyrub) applic TOPICAL 12/11/21 [History] mineral oil-hydrophil petrolat topical ointment (Aquaphor) 1 applic TOPICAL TID 12/11/21 [History Confirmed 12/11/21] polyethylene glycol 3350 17 gram oral powder packet (Miralax) 17 g PO DAILY 12/11/21 [History Confirmed 12/11/21] Subjective Data - Diagnosis DIAGNOSIS: Multiple sclerosis Chronic urinary obstructive issues with straight catheterization 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 No recent weight change. HEAD AND NECK: Negative for changes in hearing and vision. Negative for mouth ulcers, nasal congestion and nasal drainage. PULMONARY: Negative for chest pain, cough and dyspnea. CARDIOVASCULAR: Negative for claudication and irregular heartbeat/palpitations. GASTROINTESTINAL: Negative for abdominal pain, constipation, decreased appetite,diarrhea, nausea orvomiting. GENITOURINARY: Negative for dysuria and hematuria. She does chronically straight cath due to neurologic issues. ENDOCRINE: Negative for cold intolerance and heat intolerance. CENTRAL NERVOUS SYSTEM: Completely dependent for transfers due to chronic numbness and weakness of the lower half of her body due to multiple sclerosis. No headaches or focal neurologic symptoms currently. Stable from baseline. PSYCHIATRIC: Negative for anxiety or depression. DERMATOLOGICAL: Remarkable for chronic erythema overlying her right anterior lai (covered with bandage due to chronic ulcer). Otherwise negative for pruritus and rash. Negative for suspicious skin lesions. MUSCULOSKELETAL: Negative for back pain and bone/joint symptoms. HEMATOLOGICAL: Negative for bleeding and easy bruising. Negative for history of transfusion or thromboembolic disease ALLERGY: Negative for environmental allergies and food allergies. Objective - Height/Weight Height/Weight: Height 5 ft 9 in Weight 96.615 kg - Vital Signs Vital Signs: 12/11/21 11:07 Temperature 97.5 F L Pulse Rate [Left Brachial] 83 Respiratory Rate 16 Blood Pressure [Right Arm] 113/77 02 Sat by Pulse Oximetry 96 Physical Exam Narrative: CONSTITUTIONAL: The patient is in no acute distress. Physical exam was somewhatlimited as she was examined in wheelchair. HEAD / FACE: Normocephalic. EYES: Pupils are equal and reactive to light. Conjunctivae and lids are benign in appearance. Ocular movement intact. EARS: Hearing grossly intact. NOSE / MOUTH / THROAT: Nose, mouth, tongue and oropharynx are benign in appearance. No signs of inflammation. NECK / THYROID: Neck is supple. Thyroid is symmetrical, without thyromegaly, masses or palpable nodules. LYMPHATIC: No palpable cervical, supraclavicular, axillary, or inguinal adenopathy. RESPIRATORY: Normal to inspection. Lungs clear to auscultation and percussion. No wheezing, rales, rhonchi or rubs. Normal effort. CARDIOVASCULAR: Regular rate and rhythm. No murmurs, gallops, or rubs. VASCULAR: Carotid, radial, femoral and pedal pulses present bilaterally. No bruits. ABDOMEN: Bowel sounds normoactive. Soft, nontender and non-distended. No hepatosplenomegaly. No masses. GENITOURINARY: No CVA tenderness. No suprapubic fullness or tenderness. No groinadenopathy. No evidence of hernias. INTEGUMENTARY: The skin is remarkable for diffuse erythema overlying the right anterior lai (bandage was not removed to examine chronic ulcer). No rashes. No suspicious lesions for malignancy. BACK / SPINE: The back is nontender. MUSCULOSKELETAL: Normal musculature, no joint deformities or abnormalities, normal range of motion for all four extremities. EXTREMITIES: No edema, cyanosis or clubbing. No Doug sign. NEUROLOGICAL: Alert and oriented. Cranial nerves intact. She has motor weaknessand sensory deficitslower half of body consistent with her known multiple sclerosis. No speech deficits. PSYCHIATRIC: No anxiety or evidence of depression. - ECOG Performance Status ECOG Score: 3 - Due to limited ambulation from MS Results - Labs Labs: 10/15/2021: White blood cells 4500, hemoglobin 12.7, hematocrit 38, platelet count 314,000, absoluteneutrophil count 2000 ESR 86, CRP 0.8 Sodium 139, potassium 4.8, BUN 14, creatinine 1.08, estimated EGFR (non-AA) 54, glucose 93, calcium8.9, total bilirubin 0.4, AST 22, ALT 16, alkaline phosphatase 105, total protein 8.5, albumin 3.6 Serum protein electrophoresis with M spike not observed (no immunofixation reported) Free kappa 105 (normal 3.3-19.4), free lambda 49.6 (normal 5.7-26.3), free kappa/lambda ratio 2.12 (0.26-1.65) - Impressions MR/MR head/brain wo/w con IMPRESSION: 1. Parenchymal volume loss. 2. Fairly extensive cerebral white matter changes suspicious for demyelination related to multiple sclerosis. There may also be underlying chronic microvascular ischemic disease. 3. No acute intracranial abnormality. 4. No intracranial mass or abnormal enhancement. 5. Sphenoid sinusitis. Impression dictated by: Colt Pisano Jr., M.D.09/01/2021 12:[address]/CT abdomen pelvis wo/w con IMPRESSION: Dilatation of the LEFT intrarenal collecting system and ureter without obstructing stone. Wall thickening of the LEFT adrenal collecting systemand ureter. Irregular wall thickening of theurinary bladder. This may be secondary to inflammatory or infectious changes. Other etiologies may need to beexcluded. No RIGHT nephrolithiasis or obstructive uropathy. Nonvisualization of the appendix without pericecal abnormality. Moderate stool.. Consider constipation. Impression dictated by: Woody Burkett M.D.10/02/2021 12:10 PM Assessment and Plan (1) Elevated serum immunoglobulin free light chain level This is a 61-year-old lady who resides in a nursing facility due to diagnosis ofsecondary progressive multiple sclerosis (diagnosed at age 22, no active therapyreported for the last 10 years). She has chronic neuropathy which has not recently progressed. She also has a chronic nonhealing ulcerated lesion of the right anterior lai. She had recent serum protein electrophoresis which did notshow any serum M spike but kappa/lambda light chain analysis showed elevation ofboth light chain populations with ratio 2. Typically active myeloma is associated with light chain ratio is at least greater than 5-10, and is likely that this mild increase of kappa/lambda light chain ratio is due to her chronic inflammatory state either from multiple sclerosis or her chronic nonhealing ulcer. In addition she did have a recent erythrocyte sedimentation rate that was significantly elevated to 83. She does have chronic urinary retention issues and performs mqhm-hrcpiwaefhsfdcl5-4 times daily. She does not have any anemia, worsening renal function, or hypercalcemia. I recommended sending urine protein electrophoresis with urine immunofixation and urine creatinine to calculate whether she has proteinuria or if she has a urine light chain monoclonality. If significant urinary light chain monoclonality is identified or repeat kappa/lambda light chain ratio showssignificant progression of serum light chains, she may benefit from bone marrow aspiration and biopsy to determine if she has progression to myeloma. If all ofthis work-up is negative and she only has a mildly elevated urine kappa/lambda light chain ratio without evidence of monoclonality, there is no benefit in performing bone marrow biopsy and likely no utility in routine monitoring of herkappa/lambda light chains. I explained this to her in detail and will follow-upwith her for in person or phone visit in about 3 weeks toreview results and further follow-up recommendations. She expressed understanding over this moderate complexity 60-minute visit. I would like to thank you very much for the courtesy of this referral. I will keep you up-to-date with this patient's progress. Should you have any questionsregarding the management of this patient, please do not hesitate to contact me. Sincerely, Silvina Turner MD, FACP Medical Oncology (2) Secondary progressive multiple sclerosis Currently resides at a intermediate and no active therapy at this time but followed by neurology. She denies any recent worsening of neurologic symptoms. (3) Paraparesis of both lower limbs Chronic paraparesis of lower limbs secondary to MS. (4) Nonhealing ulcer of right lower extremity Qualifiers: Non-pressure ulcer stage: unspecified non-pressure ulcer stage Qualified Code(s): L97.919 - Non-pressure chronic ulcer of unspecified part of right lowerleg with unspecified severity Patient reports chronic nonhealing ulcer, not examined today. Defer to chronic wound care nurse at her facility. - Time with Patient Total Time Spent with Patient (Consult): 60 mins or more - 45 minutes [id number] for exam and discussion of work-up, 15 minutes for outside records review. Coordination of Care & Counseling Time: Greater than 50% of time spent with patient was for coordination of care (as documented) and [id number] counseling of patient and/or family. Dictated By: Silvina Turner MD DD/ [id number] Signed By: 12/12/21 1620 [facility]03-29-2022 Hospital Discharge instructions Patient Education 10/28/2021 10:36:05 Hydronephrosis Hydronephrosis Hydronephrosis is the swelling of one or both kidneys due to a blockage that stops urine from flowing out of the body. Kidneys filter waste from the blood and produce urine. This condition can lead to kidney failure and may become life threatening if not treated promptly. What are the causes? Common causes of this condition include: Problems that occur when a baby is developing in the womb (congenital defect). These can include problems: ?In the kidneys. ?In the tubes that drain urine from the kidneys into the bladder (ureters). Kidney stones. Bladder infection. An enlarged prostate gland. Scar tissue from a previous surgery or injury. A blood clot. A tumor or cyst in the abdomen or pelvis. Cancer of the prostate, bladder, uterus, ovary, or colon. What are the signs or symptoms? Symptoms of this condition include: Pain or discomfort in your side (flank). Pain and swelling in your abdomen. Nausea and vomiting. Fever. Pain when passing urine. Feelings of urgency when you need to urinate. Urinating more often than normal. In some cases, you may not have any symptoms. How is this diagnosed? This condition may be diagnosed based on: Your symptoms and medical history. A physical exam. Blood and urine tests. Imaging tests, such as an ultrasound, CT scan, or MRI. A procedure in which a scope is inserted into the urethra and used to view parts of the urinary tract and bladder (cystoscopy). How is this treated? Treatment for this condition depends on where the blockage is, how long it has been there, and whatcaused it. The goal of treatment is to remove the blockage. Treatment may include: Antibiotic medicines to treat or prevent infection. A procedure to place a small, thin tube (stent) into a blocked ureter. The stent will keep the ureter open so that urine can drain through it. A nonsurgical procedure that crushes kidney stones with shock waves (extracorporeal shock wave lithotripsy). If kidney failure occurs, treatment may include dialysis or a kidney transplant. Follow these instructions at home: Take [id number] and prescription medicines only as told by your health care provider. Rest and return to your normal activities as told by your health care provider. Ask your health care provider what activities are safe for you. Drink enough fluid to keep your urine pale yellow. If you were prescribed an antibiotic medicine, take it exactly as told by your health care provider. Do not stop taking the antibiotic even if you start to feel better. Keep all follow-up visits as told by your health care provider. This is important. Contact a health care provider if: You continue to have symptoms after treatment. You develop new symptoms. Your urine becomes cloudy or bloody. You have a fever. Get help right away if: You have severe flank or abdominal pain. You cannot drink fluids without vomiting. Summary Hydronephrosis is the swelling of one or both kidneys due to a blockage that stops urine from flowing out of the body. Hydronephrosis can lead to kidney failure and may become life threatening if not treated promptly. The goal of treatment is to treat the cause of the blockage. It may include insertion of stent intoa blocked ureter, a procedure to treat kidney stones, and antibiotic medicines. Follow your health care provider's instructions for taking care of yourself at home, including instructions about drinking fluids, taking medicines, and limiting activities. This information is not intended to replace advice given to you by your health care provider. Make sure you discuss any questions you have with your health care provider. Document Released: 05/15/2008 Document Revised: 07/30/2018 Document Reviewed: 07/30/2018 [employer] Patient Education 2020 [employer]. Follow Up Care 10/03/2021 08:56:42 With:claudetteo with [facility] Address:Unknown When: Unknown [facility] 12-13-2021 Evaluation note* Encounter Date Diagnosis Assessment Notes Treatment Notes Treatment Clinical Notes Jul, Abnormal bone radiograph (ICD-10 - R93.7) Jul, Ulcer of right lower extremity, limited to breakdown of skin (ICD-10 - L97.847) Gather Other Consult note Author Americo Maldonado [facility] Note Date/Time October 06, 2024 10:5 8am [facility] [address] [place] [address] Infect. Disease Consult Note Signed Patient: Alessandra Hardy MR#: [id number] : 1960 Acct:[id number] Age/Sex: 64 / F Adm Date: 5 Loc: Room: [address] [place] [address] Type: ADM IN Attending Dr: Luis Santoro MD Copies to: MD Luis Wakefield MD Robert J Vaschak, DO~ HPI Data of Consult Consult date: 10/06/24 Requesting Physician: Luis Santoro MD Primary Care Provider: Neva Miller DO Consult Narrative History of present illness: Ms. Hardy is a 64 year old female due to a malfunctioning suprapubic catheter that was placed about a month ago. She had a recent tube change at urology's office and was then sent back to nursing facility. It was noted the tube was not draining and the patient apparently developed some lower abdominal pain. She was sent back to the ER. They difficulty replacing the tube so ultimately Dr. Jennings attempted but was not successful. At this time she is a Poole catheter. Patient has a history of MS and neurogenic bladder. She was started on meropenem. Apparently she has a history of recurrent UTIs. In looking back at her microbiological culture she has grown various Klebsiella as, E. coli's, Pseudomonas and some these have been resistant with ESBL's. CC: Luis Santoro MD [facility] Medical History (Updated 10/06/24 @ 11:54 by Americo Maldonado MD) Poole catheter present Other lack of coordination Need for assistance with personal care Difficulty in walking, not elsewhere classified Other fracture of upper and lower end of left fibula, subsequent encounter for closed fracture with nonunion Radiculopathy, cervical region Erythema intertrigo Venous insufficiency (chronic) (peripheral) Dysphagia GERD (gastroesophageal reflux disease) Other abnormalities of gait and mobility Unsteadiness on feet Personal history of (healed) traumatic fracture History of falling Major depressive disorder, recurrent, unspecified Syncope and collapse GERD without esophagitis Cognitive communication deficit Muscle weakness (generalized) Unspecified lack of coordination Other seizures history of Congenital mitral stenosis Transient cerebral ischemic attack, unspecified Neuromuscular dysfunction of bladder, unspecified Age-related osteoporosis without current pathological fracture Cellulitis of right lower limb Multiple sclerosis Surgical History History of cystoscopy patient reports previous left stent placement History of tonsillectomy History of orthopedic surgery ankle and thigh surgery History of tubal ligation Family History Father Melanoma S/P CABG x 3 Myocardial infarction Mother Dementia Social History Smoking Status: Never smoker Tobacco Type: cigarettes Substance Use Type: None Allergies and Medications Allergies and Active Meds Allergies aspirin Allergy (Unknown, Verified 10/04/24 17:27) Unknown Reaction silicone Allergy (Unknown, Verified 10/04/24 17:27) Rash adhesive tape Allergy (Verified 10/04/24 17:27) Rash Active Medications Acetaminophen (Acetaminophen 325 Mg Tablet) 650 mg PO Q4H PRN PRN Reason: Pain Scale 1 - 5 Stop: 10/04/25 21:30 Last Admin: 10/05/24 08:56 Dose: 650 mg Albuterol (Albuterol Neb 2.5 Mg/3 Ml Vial.Neb) 2.5 mg INHALATION Q2H PRN PRN Reason: Shortness Of Breath Stop: 10/04/25 21:30 Docusate Sodium (Docusate 100 Mg Capsule) 200 mg PO BID PRN PRN Reason: Constipation Stop: 10/04/25 21:30 Fludrocortisone Acetate (Fludrocortisone Acetate 0.1 Mg Tablet) 0.05 mg PO QAM [facility] Stop: 10/05/25 08:59 Last Admin: 10/06/24 08:12 Dose: 0.05 mg Fluoxetine HCl (Fluoxetine 10 Mg Capsule) 10 mg PO QAM [facility] Stop: 10/05/25 08:59 Last Admin: 10/06/24 08:13 Dose: 10 mg Hydralazine HCl (Hydralazine 20 Mg/Ml Vial) 10 mg IV-PUSH Q4H PRN PRN Reason: if SBP > 185 Stop: 10/04/25 21:30 Meropenem (Merrem) 1 gm in 100 mls @ 33.333 mls/hr IV Q8H TRAVON Lamotrigine (Lamotrigine 100 Mg Tablet) 100 mg PO BID [facility] Stop: 10/05/25 08:59 Last Admin: 10/06/24 08:13 Dose: 100 mg Morphine Sulfate (Morphine Sulfate 2 Mg/Ml Vial) 2 mg IV-PUSH Q4H PRN PRN Reason: abdominal pain Last Admin: 10/05/24 22:12 Dose: 2 mg Nortriptyline HCl (Nortriptyline 10 Mg Capsule) 20 mg PO QHS [facility] Stop: 10/04/25 22:29 Last Admin: 10/05/24 22:12 Dose: 20 mg Oxycodone HCl (Oxycodone Ir 5 Mg Tablet) 5 mg PO Q4HR PRN PRN Reason: Pain Last Admin: 10/06/24 08:12 Dose: 5 mg Pantoprazole Sodium (Pantoprazole 40 Mg Tablet.Dr) 40 mg PO DAILY.AC.BKFAST [facility] Stop: 10/05/25 07:29 Last Admin: 10/06/24 08:12 Dose: 40 mg Sodium Chloride (Sodium Chloride 0.9 % 10 Ml Syringe) 0 ml IV-PUSH PRN PRN PRN Reason: Flush Stop: 10/04/25 17:26 Last Admin: 10/06/24 04:54 Dose: 10 ml Exam Physical Exam Vital Signs: Temp Pulse Resp BP Pulse Ox O2 Del Method O2 Flow Rate 97.9 F 116 H 20 134/68 91 L Nasal Cannula 2 10/06/24 08:00 10/06/24 08:00 10/06/24 08:00 10/06/24 08:00 10/06/24 08:00 10/06/24 08:00 10/06/24 08:00 Const General: cooperative, comfortable and no acute distress Orientation: alert and awake HEENT Head: normal to inspection Eyes General: appearance normal, both eyes and all related structures Neck Neck: normal visual inspection Chest Chest palpation & inspection: normal inspection of the chest Resp Effort & Inspection: normal respiratory effort Cardio Palpation: normal PMI Rhythm: regular rhythm GI Inspection: normal to inspection Palpation: soft and nontender Other: Prior suprapubic area with dressing over. Skin General: no rashes or lesions noted Neuro General: patient alert and patient awake Extrem General: normal to inspection Results - Infectious Disease Labs 10/05/24 04:20 10/05/24 04:20 Labs: 10/04/24 19:09 Urine Color Yellow Urine Appearance Turbid A Urine pH 7.0 Ur Specific [place] 1.015 Urine Protein 50 H Urine Glucose (UA) Normal Urine Ketones Trace H Urine Occult Blood 2+ H Urine Nitrite Positive H Urine Bilirubin Negative Urine Urobilinogen Normal Ur Leukocyte Esterase 4+ H Urine RBC Innumerable H Urine WBC Innumerable H Urine WBC Clumps Many H Ur Squamous Epith Cells 3-4 H Urine Bacteria None seen Hyaline Casts None Microbiology Results Microbiology Narrative: 10/04/24 19:09 Urine Culture - Final Urine - Poole Catheter Escherichia coli (ESBL) 10/04/24 20:05 Blood Culture - Preliminary Blood - Right Hand No Growth 1 Day 10/04/24 19:54 Blood Culture - Preliminary Blood - Right Antecubital No Growth 1 Day Imaging and Cardiology Status: report viewed by me Results Comments: ABD CT: BASILAR PARENCHYMAL CHANGES. BILATERAL NEPHROLITHIASIS, LARGER ON THE RIGHT WITHIN THE RENAL PELVIS WHERE THERE IS ASSOCIATED HYDRONEPHROSIS. SUPRAPUBIC CATHETER, NOT WITHIN THE URINARY BLADDER. SMALL AMOUNT OF FREE AIR WHICH IS LIKELY RELATED TO CATHETER INSERTION. TRACE OF FREE PELVIC FLUID. 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 She is already put on meropenem. Blood cultures are negative at 1 day. She will if ongoing treatment is warranted could suggest nitrofurantoin for 5 more days. Documented By: Americo Maldonado MD 10/06/24 1150 Signed By: <Electronically signed by MD Americo Maldonado> 10/06/24 1159 [facility] Work Phone: Consult note Author Brigid Adame [facility] Note Date/Time October 08, 2024 4:07 pm [facility] [address] [place] [address] Cardiology Consult Note Signed Patient: Alessandra Hardy MR#: [id number] : 1960 Acct:[id number] Age/Sex: 64 / F Adm Date: 5 Loc: Room: [address] [place] [address] Type: ADM IN Attending Dr: Luis Santoro MD Copies to: MD Luis Leary MD Robert J Vaschak,DO~ Cardiology HPI History of Present Illness Consult Date: 10/08/24 Reason for Consult: Tachycardia HPI: Ms. Hardy is a 64 year old female with past medical history significant for multiple sclerosis, neurogenic bladder status post suprapubic catheter placementwho presented with decreased urine output and abdominal pain. She had an accessible attempt to replace the suprapubic catheter in the ER and had to undergo surgery to replace this. During the hospitalization she has been noticed to be tachycardic in the 100s. CT chest was negative for PE. Cardiology consulted for further recommendations. She reports occasional palpitations. She denies chest pain and her dyspnea is at baseline. Review of recent admission showed that she has a borderline elevated heart rate. Notably she has a complex UTI and has ESBL colonization and she is currently on antibiotics for it. Denies any cardiac history. Review of Systems Review of Systems All other systems reviewed & are negative unless noted below or in HPI [facility] Medical History (Updated 10/08/24 @ 15:53 by Brigid Adame MD) Poole catheter present Other lack of coordination Need for assistance with personal care Difficulty in walking, not elsewhere classified Other fracture of upper and lower end of left fibula, subsequent encounter for closed fracture with nonunion Radiculopathy, cervical region Erythema intertrigo Venous insufficiency (chronic) (peripheral) Dysphagia GERD (gastroesophageal reflux disease) Other abnormalities of gait and mobility Unsteadiness on feet Personal history of (healed) traumatic fracture History of falling Major depressive disorder, recurrent, unspecified Syncope and collapse GERD without esophagitis Cognitive communication deficit Muscle weakness (generalized) Unspecified lack of coordination Other seizures history of Congenital mitral stenosis Transient cerebral ischemic attack, unspecified Neuromuscular dysfunction of bladder, unspecified Age-related osteoporosis without current pathological fracture Cellulitis of right lower limb Multiple sclerosis Surgical History History of cystoscopy patient reports previous left stent placement History of tonsillectomy History of orthopedic surgery ankle and thigh surgery History of tubal ligation Family History Father Melanoma S/P CABG x 3 Myocardial infarction Mother Dementia Social History Smoking Status: Never smoker Tobacco Type: cigarettes Substance Use Type: None Meds Medications and Allergies Allergies aspirin Allergy (Unknown, Verified 10/04/24 17:27) Unknown Reaction silicone Allergy (Unknown, Verified 10/04/24 17:27) Rash adhesive tape Allergy (Verified 10/04/24 17:27) Rash Home Medications fludrocortisone 0.1 mg tablet 0.05 mg PO QAM cellulitis 04/23/21 [History Confirmed 10/04/24] lamotrigine 100 mg tablet 100 mg PO BID seizures 04/23/21 [History Confirmed 10/04/24] nortriptyline 10 mg capsule 20 mg PO QHS 04/23/21 [History Confirmed 10/04/24] cholecalciferol (vitamin D3) 25 mcg (1,000 unit) tablet (Vitamin D3) 75 mcg PO QAM 12/11/21 [History Confirmed 10/04/24] menthol 3.2 mg lozenges 3.2 mg PO DIRECTED 05/12/22 [History Confirmed 10/04/24] fluoxetine 10 mg capsule (Prozac) 10 mg PO QAM 05/26/22 [History Confirmed 10/04/24] bisacodyl 10 mg rectal suppository 10 mg PA DAILY PRN constipation 07/28/23 [History Confirmed 10/04/24] magnesium hydroxide 400 mg/5 mL oral suspension (Milk of Magnesia) 2,400 mg PO DAILY PRN constipation 07/28/23 [History Confirmed 10/04/24] acetaminophen 325 mg capsule 650 mg PO Q6HR PRN pain 10/17/23 [History Confirmed 10/04/24] omeprazole 20 mg capsule,delayed release 20 mg PO QAM 05/16/24 [History Confirmed 10/04/24] carboxymethylcellulose sodium 1 % eye drops (Artificial Tears (carboxymethylcellulose)) 1 drp Eye-Both BID-QID PRN dry eye(s) 07/24/24 [History Confirmed 10/04/24] eucalyptus oil-aloe extr-lavender,janett oil-petrolatum top ointment (Vicks Babyrub topical ointment) 1 applic topical QID PRN chest congestion 10/04/24 [History Confirmed 10/04/24] miconazole nitrate 2 % topical powder (Miconazorb AF) 1 applic topical TID PRN excoriation 10/04/24 [History Confirmed 10/04/24] tacrolimus 0.1 % topical ointment 1 applic topical DAILY 10/04/24 [History Confirmed 10/04/24] albuterol sulfate 2.5 mg/3 mL (0.083 %) solution for nebulization 2.5 mg (3 mL) inhalation Q2H PRN Shortness Of Breath 30 days #90 mL 10/08/24 [Rx] docusate sodium 100 mg capsule 200 mg (2 x 100 mg) PO BID PRN Constipation 30 days #60 caps 10/08/24 [Rx] nitrofurantoin monohydrate/macrocrystals 100 mg capsule 100 mg PO BID.WITH.MEALS 1 day #2 caps 10/08/24 [Rx] Exam Physical Exam Vital Signs: Temp Pulse Resp BP Pulse Ox O2 Del Method O2 Flow Rate 97.7 F 102 H 19 147/72 H 90 L Room Air 2 10/08/24 07:55 10/08/24 07:55 10/08/24 07:55 10/08/24 07:55 10/08/24 07:55 10/08/24 08:00 10/07/24 08:00 Narrative: GEN: AAOx3. No acute distress. Neck: No JVD. Lungs: Clear to auscultation bilaterally Heart: Regular rate and rhythm. Normal S1 and S2. No murmurs or rubs appreciated. Abdomen: Soft, nontender, nondistended, bowel sounds present. Extremities: No BLE edema. Neuro: AAOx3. No focal deficits. Results - Cardiology Labs 10/08/24 04:35 10/08/24 04:35 Lab results: Cardiac Enzymes 10/08/24 Range/Units 04:35 AST 12 L (13-39) U/L CBC 10/08/24 Range/Units 04:35 RBC 4.41 (3.60-5.00) x10E6/uL Hgb 13.3 (11.8-15.4) g/dL Hct 39.3 (34.0-46.4) % Plt Count 361 (150-450) x10E3/uL Neut # (Auto) 6.8 (1.8-7.7) x10E3/uL Lymph # (Auto) 2.0 (1.00-4.8) x10E3/uL [place] # (Auto) 0.8 (0.0-0.8) x10E3/uL Eos # (Auto) 0.4 (0.0-0.45) x10E3/uL Baso # (Auto) 0.1 (0.0-0.2) x10E3/uL Comprehensive Metabolic Panel 10/08/24 Range/Units 04:35 Sodium 138 (136-145) mmol/L Potassium 3.4 L (3.5-5.1) mmol/L Chloride 107 (98-107) mmol/L Carbon Dioxide 24.2 (21.0-31.0) mmol/L BUN 16 (7-25) mg/dL Creatinine 0.61 (0.60-1.20) mg/dL Glucose 118 H (70-100) mg/dL Calcium 8.4 L (8.6-10.3) mg/dL AST 12 L (13-39) U/L ALT 6 L (7-52) U/L Alkaline Phosphatase 82 (34-104) U/L Total Protein 6.7 (6.4-8.9) gm/dL Albumin 2.8 L (3.5-5.7) gm/dL Intake and Output 10/07/24 10/08/24 10/08/24 23:59 08:59 15:59 Other: Weight 102.5 kg Date of Last Bowel Movement 10/05/24 10/08/24 Patient Weight 10/09/24 00:59 Weight 102.5 kg A&P - Cardiology (1) Sinus tachycardia: Code(s): R00.0 - Tachycardia, unspecified (2) Suprapubic catheter dysfunction: Code(s): T83.010A - Breakdown (mechanical) of cystostomy catheter, initial encounter (3) 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 CTA negative for PE. Some improvement with with IV fluids however review of previous records notes she has had HR in 90-100s in the past. - Continue supportive management. - Cardiology will see again as needed. Documented By: Brigid Adame MD 10/08/24 1552 Signed By: <Electronically signed by Brigid Adame MD> 10/08/24 1607 [facility] Work Phone: Evaluation + Plan note No data available for this section [facility] Evaluation + Plan note Future Appointments Appointment Date:01/27/2023 08:30:00 AM Scheduled Provider:Tammy ALLAN MD Location:[facility] Appointment Type:URO Office Visit [facility] Evaluation + Plan note Future Appointments Appointment Date:06/07/2024 10:45:00 AM Scheduled Provider:Tammy ALLAN MD Location:[facility] Appointment Type:URO Office Visit Appointment Date:06/21/2024 09:30:00 AM Scheduled Provider:Tammy ALLAN MD Location:[facility] Appointment Type:URO Office Visit [facility] Evaluation + Plan note Future Appointments Appointment Date:09/06/2024 09:30:00 AM Scheduled Provider:Tammy ALLAN MD Location:[facility] Appointment Type:URO Office Visit [facility] evaluation + Plan note Future Appointments Appointment Date:10/03/2024 09:00:00 AM Scheduled Provider:KANE Grier APRN Mayra X Location:[facility] Appointment Type:URO Office Visit [facility] Evaluation + Plan note Future Appointments Appointment Date:11/02/2024 12:30:00 PM Scheduled Provider:KANE Grier APRN Mayra X Location:[facility] Appointment Type:URO Office Visit [facility] Evaluation noteNo assessment information available [facility] Work Phone: Evaluation note* Diagnosis Onset Date Resolution Status 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 Paraparesis of both lower limbs chronic Secondary progressive multiple sclerosis chronic [facility] Work Phone: evaluation note* Diagnosis Localized osteoarthritis of left knee- Primary LLQ pain Abdominal pain, left lower quadrant [facility] Diagnosis Onset Date Resolution Status [place] (acute kidney injury) [place] Pyelonephritis acute Severe sepsis [facility]* Diagnosis Onset Date Resolution Status [place] (acute kidney injury) ac [place] Bacteremia acute Bacteremia due to Gram-negative bacteria acute Dehydration acute Elevated troponin acute Hypotension acute Pyelonephritis acute Severe sepsis acute Tachycardia acute [facility] Work Phone: evaluation note* Diagnosis Onset Date Resolution Status Admit Date Atypical chest pain acute October 04, 2024 9:31pm Encounter for suprapubic cat heter care acute October 04, 2024 9:31pm Multiple sclerosis acute October 04, 2024 9:31pm Neurogenic bladder, NOS acute 2024 9:31pm UTI (urinary tract infection) acute October 04, 2024 9:31pm UTI (urinary tract infection ) due to urinary indwelling Poole catheter acute October 04, 2024 9:31pm [facility] Work Phone: Evaluation note* Diagnosis Cholelithiasis Calculus of gallbladder without mention of cholecystitis or obstruction documented in this encounter [facility] Author Virginia Gaviria [facility] Note Date/Time October 06, 2024 5:51 am [facility] [address] [place] [address] Hospitalist H&P Signed Patient: Alessandra Hardy MR#: [id number] : 1960 Acct:[id number] Age/Sex: 64 / F Adm Date: 5 Loc: Room: [address] [place] [address] Type: ADM IN Attending Dr: Sameer Jenkins DO Copies to: DO Virginia Patrick MD Shawn J Warner, DO~ HPI DATE OF EXAMINATION: 10/04/24 HISTORY OF PRESENT ILLNESS: 64 years old female with a history of MS and neurogenic bladder, status post suprapubic catheter placed by Dr. Allan last month, presented to urology officeyesterday for suprapubic tube change. It was difficult, but was changed and sent back to nursing facility. Since then the nursing staff noted decreased urine output and patient did develop lower abdominal pain associated with nauseaand 1 episode of vomiting. In emergency room attempt was made to irrigate the catheter without success, suprapubic catheter was removed by Dr. Mendes, urology was consulted and patient underwent bedside endoscopy of suprapubic tubetract with unsuccessful attempt at replacement suprapubic tube. Poole catheter was placed draining approximately 300 cc of urine I did see the patient emergency room, she was lying in flat position, she still complained of lower abdominal pain. Denies any constipation denies any diarrhea. Denies any fever any chills. While in ER she developed left-sided chest/shoulder pain which is worse with breathing and palpation, she denies any underlying history of coronary artery disease 10 systems are reviewed and are negative apart as mentioned H&P General -patient is sleepy alert oriented ?3, does not appear to be in distress,she is lying in flat position, she does not appear to be in respiratory distress HEENT -normal oropharyngeal mucosa without any ulcers or exudates Cardiovascular -S1 plus S2, with regular rate, without any murmurs, gallops, rubs Pulmonary -clear to auscultation bilaterally Gastrointestinal -abdomen is quite firm, with hypoactive bowel sounds, and diffusely tender , Suprapubic catheter is out Neurological -no focal Skin -no significant ulcers, no rash noted Extremities - no edema in bilateral lower extremities noted Psychiatry - appropriate affect [facility] Medical History (Updated 10/04/24 @ 21:58 by Bong Jennings MD) Poole catheter present Other lack of coordination Need for assistance with personal care Difficulty in walking, not elsewhere classified Other fracture of upper and lower end of left fibula, subsequent encounter for closed fracture with nonunion Radiculopathy, cervical region Erythema intertrigo Venous insufficiency (chronic) (peripheral) Dysphagia GERD (gastroesophageal reflux disease) Other abnormalities of gait and mobility Unsteadiness on feet Personal history of (healed) traumatic fracture History of falling Major depressive disorder, recurrent, unspecified Syncope and collapse GERD without esophagitis Cognitive communication deficit Muscle weakness (generalized) Unspecified lack of coordination Other seizures history of Congenital mitral stenosis Transient cerebral ischemic attack, unspecified Neuromuscular dysfunction of bladder, unspecified Age-related osteoporosis without current pathological fracture Cellulitis of right lower limb Multiple sclerosis Surgical History History of cystoscopy patient reports previous left stent placement History of tonsillectomy History of orthopedic surgery ankle and thigh surgery History of tubal ligation Family History Father Melanoma S/P CABG x 3 Myocardial infarction Mother Dementia Social History Smoking Status: Never smoker Tobacco Type: cigarettes Substance Use Type: None Meds Medications and Allergies Allergies aspirin Allergy (Unknown, Verified 10/04/24 17:27) Unknown Reaction silicone Allergy (Unknown, Verified 10/04/24 17:27) Rash adhesive tape Allergy (Verified 10/04/24 17:27) Rash Home Medications fludrocortisone 0.1 mg tablet 0.05 mg PO QAM cellulitis 04/23/21 [History Confirmed 10/04/24] lamotrigine 100 mg tablet 100 mg PO BID seizures 04/23/21 [History Confirmed 10/04/24] nortriptyline 10 mg capsule 20 mg PO QHS 04/23/21 [History Confirmed 10/04/24] cholecalciferol (vitamin D3) 25 mcg (1,000 unit) tablet (Vitamin D3) 75 mcg PO QAM 12/11/21 [History Confirmed 10/04/24] menthol 3.2 mg lozenges 3.2 mg PO DIRECTED 05/12/22 [History Confirmed 10/04/24] fluoxetine 10 mg capsule (Prozac) 10 mg PO QAM 05/26/22 [History Confirmed 10/04/24] bisacodyl 10 mg rectal suppository 10 mg PA DAILY PRN constipation 07/28/23 [History Confirmed 10/04/24] magnesium hydroxide 400 mg/5 mL oral suspension (Milk of Magnesia) 2,400 mg PO DAILY PRN constipation 07/28/23 [History Confirmed 10/04/24] acetaminophen 325 mg capsule 650 mg PO Q6HR PRN pain 10/17/23 [History Confirmed 10/04/24] omeprazole 20 mg capsule,delayed release 20 mg PO QAM 05/16/24 [History Confirmed 10/04/24] carboxymethylcellulose sodium 1 % eye drops (Artificial Tears (carboxymethylcellulose)) 1 drp Eye-Both BID-QID PRN dry eye(s) 07/24/24 [History Confirmed 10/04/24] eucalyptus oil-aloe extr-lavender,janett oil-petrolatum top ointment (Vicks Babyrub topical ointment) 1 applic topical QID PRN chest congestion 10/04/24 [History Confirmed 10/04/24] miconazole nitrate 2 % topical powder (Miconazorb AF) 1 applic topical TID PRN excoriation 10/04/24 [History Confirmed 10/04/24] tacrolimus 0.1 % topical ointment 1 applic topical DAILY 10/04/24 [History Confirmed 10/04/24] Exam Physical Exam Vital Signs: Temp Pulse Resp BP Pulse Ox O2 Del Method O2 Flow Rate 36.9 C 98 20 141/81 H 99 Nasal Cannula 4 10/04/24 18:54 10/04/24 20:58 10/04/24 20:58 10/04/24 20:58 10/04/24 20:58 10/04/24 20:58 10/04/24 20:58 Results - Hospitalist H&P Lab Results Labs: Laboratory Last Values Corrected WBC 14.5 X10E3/uL (3.8-11.6) H 10/04/24 18:03 Uncorrected WBC Count 14.5 x10E3/uL (3.8-11.6) H 10/04/24 18:03 RBC 4.31 x10E6/uL (3.60-5.00) 10/04/24 18:03 Hgb 12.9 g/dL (11.8-15.4) 10/04/24 18:03 Hct 38.5 % (34.0-46.4) 10/04/24 18:03 MCV 89.3 fl (80-100) 10/04/24 18:03 MCH 29.9 pg (24.7-34.3) 10/04/24 18:03 MCHC 33.4 g/dL (32.0-35.0) 10/04/24 18:03 RDW 13.9 % (11.9-15.3) 10/04/24 18:03 Plt Count 271 x10E3/uL (150-450) 10/04/24 18:03 MPV 7.4 fl (6.3-10.7) 10/04/24 18:03 Neut % (Auto) 82.8 % (.) 10/04/24 18:03 Lymph % (Auto) 10.4 % (.) 10/04/24 18:03 [place] % (Auto) 5.5 % (.) 10/04/24 18:03 Eos % (Auto) 0.8 % (.) 10/04/24 18:03 Baso % (Auto) 0.5 % (.) 10/04/24 18:03 Nucleat RBC Rel Count 0.1 /100 WBC (0-0.5) 10/04/24 18:03 Neut # (Auto) 12.0 x10E3/uL (1.8-7.7) H 10/04/24 18:03 Lymph # (Auto) 1.5 x10E3/uL (1.00-4.8) 10/04/24 18:03 [place] # (Auto) 0.8 x10E3/uL (0.0-0.8) 10/04/24 18:03 Eos # (Auto) 0.1 x10E3/uL (0.0-0.45) 10/04/24 18:03 Baso # (Auto) 0.1 x10E3/uL (0.0-0.2) 10/04/24 18:03 Monocyte Dist Width 29.09 % (0.00-20.00) H 10/04/24 18:03 PHA Creatinine Clear 71.42 10/04/24 18:03 Sodium 136 mmol/L (136-145) 10/04/24 18:03 Potassium 3.9 mmol/L (3.5-5.1) 10/04/24 18:03 Chloride 102 mmol/L (98-107) 10/04/24 18:03 Carbon Dioxide 26.7 mmol/L (21.0-31.0) 10/04/24 18:03 Anion Gap 11.2 mEq/L (6.0-15.0) 10/04/24 18:03 BUN 15 mg/dL (7-25) 10/04/24 18:03 Creatinine 1.03 mg/dL (0.60-1.20) 10/04/24 18:03 Est GFR (CKD-EPI) > 60.0 mL/Min 10/04/24 18:03 Glucose 122 mg/dL (70-100) H 10/04/24 18:03 Lactic Acid 0.9 mmol/L (0.5-1.9) 10/04/24 19:54 Calcium 9.4 mg/dL (8.6-10.3) 10/04/24 18:03 Total Bilirubin 0.6 mg/dl (0.3-1.0) 10/04/24 20:20 Direct Bilirubin 0.10 mg/dL (0.03-0.18) 10/04/24 20:20 Indirect Bilirubin 0.5 mg/dL 10/04/24 20:20 AST 17 U/L (13-39) 10/04/24 20:20 ALT 10 U/L (7-52) 10/04/24 20:20 Alkaline Phosphatase 78 U/L (34-104) 10/04/24 20:20 Total Protein 6.8 gm/dL (6.4-8.9) 10/04/24 20:20 Albumin 3.0 gm/dL (3.5-5.7) L 10/04/24 20:20 Globulin 3.8 gm/dL 10/04/24 20:20 Albumin/Globulin Ratio 0.8 10/04/24 20:20 Urine Color Yellow (Yellow) 10/04/24 19:09 Urine Appearance Turbid (Clear) A 10/04/24 19:09 Urine pH 7.0 (5.0-9.0) 10/04/24 19:09 Ur Specific [place] 1.015 (1.001-1.030) 10/04/24 19:09 Urine Protein 50 mg/dL (Negative) H 10/04/24 19:09 Urine Glucose (UA) Normal mg/dL (Normal) 10/04/24 19:09 Urine Ketones Trace (Negative) H 10/04/24 19:09 Urine Occult Blood 2+ (Negative) H 10/04/24 19:09 Urine Nitrite Positive (Negative) H 10/04/24 19:09 Urine Bilirubin Negative (Negative) 10/04/24 19:09 Urine Urobilinogen Normal mg/dL (Normal) 10/04/24 19:09 Ur Leukocyte Esterase 4+ (Negative) H 10/04/24 19:09 Urine RBC Innumerable /HPF (0-4) H 10/04/24 19:09 Urine WBC Innumerable /HPF (0-4) H 10/04/24 19:09 Urine WBC Clumps Many /LPF (None Seen) H 10/04/24 19:09 Ur Squamous Epith Cells 3-4 /HPF (0-2) H 10/04/24 19:09 Urine Bacteria None seen /HPF (None Seen) 10/04/24 19:09 Hyaline Casts None /LPF (0-8) 10/04/24 19:09 Assessment & Plan Assessment/Plan (1) Neurogenic bladder, NOS: Plan 1. Replacement of suprapubic catheter on October 03, since then significant decrease in urine output with development of abdominal pain In ER surgery catheter was removed and unable to replace by ER physician and urologist Plan for possible surgical intervention in a.m. Questionable complex acute cystitis due to neurogenic bladder and chronic suprapubic catheter, she did have a history of Pseudomonas and ESBL in the past,will cover with meropenem as she does have leukocytosis N.p.o. after midnight, hydration 2. MS 3. DVT prophylaxis, SCDs for now, hold chemoprophylaxis due to possible surgical intervention IP vs OBS Justification Based on differential dx, clinical care plan, and risk of adverse events, if untreated, in my clinical judgement this patient requires an acute care setting as: INPATIENT because of an expectation of an over 2 midnight stay. Estimated length of stay (# of days): 3 Documented By: Virginia Gaviria MD 10/04/24 9199 Signed By: <Electronically signed by Virginia Gaviria MD> 10/06/24 0686 [facility] Work Phone: History general Narrative - Reported* Type Description Date Medical History multiple sclerosis Medical History cellulitis right lower limb Medical History osteoporosis Medical History neuromuscular dysfunction of vinod dder Medical History transient cerebral ischemic jennifer ck Medical History congential mitral stenosis Medical History seizures Medical History muscle weakness Medical History abdominal aortic aneurysm [facility] Discharge instructions No data available for this section [facility] Discharge instructions Additional Instructions DISCHARGE INSTRUCTIONS FOR URETEROSCOPY, LASER LITHOTRIPSY, STONE EXTRACTION, AND STENT PLACEMENT There are no incisions or dressings to be concerned with, as the procedure was performed inside the urinary system. For 24 hours after surgery: -No driving or operating machinery. -Do not make important decisions. -Do not consume alcohol, sleeping pills. STENT PLACEMENT -you may have a stent which spans the distance between your bladder and your kidney, allowing urine to pass through. It prevents blockage from swelling, kidney stones in the ureter (tube connecting the kidney to the bladder), or scars. The presence of the stent may cause: -Back or side pain, especially with urination. -Frequent or urgent urination. -Bladder pressure or pain. -Blood in the urine. -You may pass stone debris or small blood clots, which is expected. -Drinking plenty of water to dilute the urine may help. -If there is a thread coming out of the urinary channel, be careful not to accidentally pull on this, as it is attached to the stent. -The stent will most likely be removed in office during a short procedure in which a scope is placed into the bladder, the stent is grasped, and removed. At other times the stent may need to stay in longer, either in preparation for other procedures, or for other reasons. If it is to remain steel burner, however, changes of the stent are required (about every 3-4 months). DIET You may resume your normal diet, but you may want to start slowly and avoid spicy food, caffeine, carbonated beverages, and alcohol- especially if you have a stent. Your diet and fluid intake may make irritation form the stent worse. ACTIVITY You may resume your normal activities, although you should take it easy on the day of the procedure. Minimizing activity may decrease the back discomfort and irritation from the stent, if present. MEDICATIONS -You may resume your home medications unless instructed otherwise. -[Hold aspirin, ibuprofen, Coumadin (warfarin), and other blood thinners until your office visit (we'll discuss when to resume these medications).] -Take your prescribed medications as directed, including your antibiotics. You may also be given a prescription for pain medicine, or medicines to help with the bladder irritation from the stent, if present. THINGS TO WATCH FOR WHICH WOULD REQUIRE AN EMERGENCY ROOM VISIT (OR CALL 911) (This is not a complete list) -Fever over 101.5 degrees Fahrenheit, with or without chills. -Severe bleeding. -Severe drug reactions with itching, hives, or rash, or severe flank pain. -Tenderness or swelling of the calves, chest pain, or shortness of breath. FOLLOW UP -[Please call the office to arrange for your post-operative appointment (with X-Ray)] [ ][facility] Work Phone: Hospital Discharge instructions Additional Instructions Take the antibiotics as prescribed to completion Drink plenty of fluids Return for fevers, inability urinate, worsening blood or blood clots in the urine, body aches or chills, abdominal pain, nausea or vomiting[facility] Work Phone: Hospital Discharge instructions Additional Instructions Suprapubic tube is to be taped to the abdomen in a curvilinear fashion at all times. Leg bag to be used only. No large bag to be used at at the alf.[facility] Work Phone: Progress note No data available for this section [facility] Progress note Author Sameer Jenkins [facility] Note Date/Time October 05, 2024 12:5 1pm [facility] [address] [place] [address] Hospitalist Progress Note Signed Patient: Alessandra Hardy MR#: [id number] : 1960 Acct:[id number] Age/Sex: 64 / F Adm Date: 5 Loc: 4 Room: 0I3703-1 Type: ADM IN Attending Dr: Sameer Jenkins DO Copies to: ~ Date of Service: 10/05/2024 Subjective Subjective Narrative: Seen and evaluated, she is currently laying comfortable in bed. The overnight events were reviewed, patient does have some abdominal discomfort which is primarily on the right side and does radiate to the left side. CT scan was reviewed, her dressing is applied over the location where her suprapubic catheter was placed and that is CDI. There is not much tenderness around the dressing. Exam Physical Exam Vital Signs: Temp Pulse Resp BP Pulse Ox O2 Del Method O2 Flow Rate 98.0 F 108 H 20 152/67 H 94 L Nasal Cannula 2 10/05/24 08:02 10/05/24 08:02 10/05/24 08:02 10/05/24 08:02 10/05/24 08:02 10/05/24 08:02 10/05/24 08:02 Narrative: General: Awake alert, no acute distress HEENT: head atraumatic, normocephalic, moist mucous membranes Neck: supple no masses, no lymphadenopathy CVS: regular rate and rhythm, no murmurs or gallops Respiratory: clear to auscultation bilaterally, no wheezing or crackles, symmetric expansion GI: soft, nondistended, slight tenderness to palpation on the right and left side of her abdomen dressing over suprapubic catheter site is CDI, positive bowel sounds with no organomegaly Extremity: moves all extremities, no restrictions of movements, no calf tenderness, no edema Neuro: AOx3, CN II-VII intact. Moves all extremities in all planes of motion. Skin: dry, intact no rashes or lesions Objective Lab Results 10/05/24 04:20 10/05/24 04:20 Microbiology Results Microbiology 10/04/24 19:09 Urine - Poole Catheter Urine Culture - Preliminary Escherichia coli Meds Allergies and Active Meds Allergies aspirin Allergy (Unknown, Verified 10/04/24 17:27) Unknown Reaction silicone Allergy (Unknown, Verified 10/04/24 17:27) Rash adhesive tape Allergy (Verified 10/04/24 17:27) Rash Active Meds: Active Medications Generic Name Dose Route Start Last Admin Trade Name Freq PRN Reason Stop Dose Admin Acetaminophen 650 mg 10/04/24 21:31 10/05/24 08:56 Acetaminophen 325 Mg Tablet PO 10/04/25 21:30 650 mg Q4H PRN Administration Pain Scale 1 - 5 Albuterol 2.5 mg 10/04/24 21:31 Albuterol Neb 2.5 Mg/3 Ml Vial.Neb INHALATION 10/04/25 21:30 Q2H PRN Shortness Of Breath Docusate Sodium 200 mg 10/04/24 21:31 Docusate 100 Mg Capsule PO 10/04/25 21:30 BID PRN Constipation Fludrocortisone Acetate 0.05 mg 10/05/24 09:00 Fludrocortisone Acetate 0.1 Mg Tablet PO 10/05/25 08:59 QAM TRAVON Fluoxetine HCl 10 mg 10/05/24 09:00 Fluoxetine 10 Mg Capsule PO 10/05/25 08:59 QAM TRAVON Hydralazine HCl 10 mg 10/04/24 21:31 Hydralazine 20 Mg/Ml Vial IV-PUSH 10/04/25 21:30 Q4H PRN if SBP > 185 Meropenem 1 gm in 100 mls @ 200 mls/hr 10/05/24 05:00 10/05/24 05:02 Merrem IV 200 mls/hr Q8H TRAVON Administration Lamotrigine 100 mg 10/05/24 09:00 Lamotrigine 100 Mg Tablet PO 10/05/25 08:59 BID TRAVON Morphine Sulfate 2 mg 10/05/24 11:37 10/05/24 11:49 Morphine Sulfate 2 Mg/Ml Vial IV-PUSH 2 mg Q4H PRN Administration abdominal pain Nortriptyline HCl 20 mg 10/04/24 22:30 10/05/24 00:55 Nortriptyline 10 Mg Capsule PO 10/04/25 22:29 20 mg QHS TRAVON Administration Oxycodone HCl 5 mg 10/04/24 21:31 Oxycodone Ir 5 Mg Tablet PO Q4HR PRN Pain Pantoprazole Sodium 40 mg 10/05/24 07:30 Pantoprazole 40 Mg Tablet. PO 10/05/25 07:29 DAILY.AC.BKFAST TRAVON Sodium Chloride 0 ml 10/04/24 17:27 10/05/24 11:50 Sodium Chloride 0.9 % 10 Ml Syringe IV-PUSH 10/04/25 17:26 10 ml PRN PRN Administration Flush A&P - Hospitalist Assessment/Plan (1) UTI (urinary tract infection): Plan: ? Her urine appeared very infected on admission, urine culture already resulted as E. coli. History of ESBL. ? Continue meropenem as ordered (2) Neurogenic bladder, NOS: Plan: ? Urology attempted to replace the suprapubic catheter in the emergency room andwas unable to. Please see op notes for details on that. ? Poole catheter was placed, it is draining well ? Patient to be discharged with Poole catheter in place for outpatient follow- upwith Dr. Allan regarding the decision to replace the suprapubic catheter in thefuture (3) Encounter for suprapubic catheter care: Plan: See above Plan ? DVT prophylaxis addressed ? Normal diet ? DNR CCA with intubation, this was confirmed with the patient the afternoon of 10/05/2024 Documented By: Sameer Jenkins, 10/05/24 1345 Signed By: <Electronically signed by Sameer Jenkins, DO> 10/05/24 1351 [facility] Work Phone: Progress note Author Luis Santoro [facility] Note Date/Time October 07, 2024 6:13 am [facility] [address] [place] [address] Hospitalist Progress Note Signed Patient: Alessandra Hardy MR#: [id number] : 1960 Acct:[id number] Age/Sex: 64 / F Adm Date: 5 Loc: Room: [address] [place] [address] Type: ADM IN Attending Dr: Luis Santoro MD Copies to: ~ Date of Service: 10/06/2024 Subjective Subjective Narrative: Patient seen and examined at bedside. Still having abdominal discomfort mainly lower around the suprapubic site. Exam Physical Exam Vital Signs: Temp Pulse Resp BP Pulse Ox O2 Del Method O2 Flow Rate 98.6 F 116 H 20 125/73 92 L Nasal Cannula 2 10/06/24 16:00 10/06/24 16:00 10/06/24 16:00 10/06/24 16:00 10/06/24 16:00 10/06/24 16:00 10/06/24 16:00 Narrative: General: Awake alert, no acute distress HEENT: head atraumatic, normocephalic, moist mucous membranes Neck: supple no masses, no lymphadenopathy CVS: regular rate and rhythm, no murmurs or gallops Respiratory: clear to auscultation bilaterally, no wheezing or crackles, symmetric expansion GI: soft, nondistended, slight tenderness to palpation on the right and left side of her abdomen dressing over suprapubic catheter site is CDI, positive bowel sounds with no organomegaly Extremity: moves all extremities, no restrictions of movements, no calf tenderness, no edema Neuro: AOx3, CN II-VII intact. Moves all extremities in all planes of motion. Skin: dry, intact no rashes or lesions Objective Lab Results 10/05/24 04:20 10/05/24 04:20 Microbiology Results Microbiology 10/04/24 19:09 Urine - Poole Catheter Urine Culture - Final Escherichia coli (ESBL) 10/04/24 20:05 Blood - Right Hand Blood Culture - Preliminary No Growth 1 Day 10/04/24 19:54 Blood - Right Antecubital Blood Culture - Preliminary No Growth 1 Day Meds Allergies and Active Meds Allergies aspirin Allergy (Unknown, Verified 10/04/24 17:27) Unknown Reaction silicone Allergy (Unknown, Verified 10/04/24 17:27) Rash adhesive tape Allergy (Verified 10/04/24 17:27) Rash Active Meds: Active Medications Generic Name Dose Route Start Last Admin Trade Name Freq PRN Reason Stop Dose Admin Acetaminophen 650 mg 10/04/24 21:31 10/05/24 08:56 Acetaminophen 325 Mg Tablet PO 10/04/25 21:30 650 mg Q4H PRN Administration Pain Scale 1 - 5 Albuterol 2.5 mg 10/04/24 21:31 Albuterol Neb 2.5 Mg/3 Ml Vial.Neb INHALATION 10/04/25 21:30 Q2H PRN Shortness Of Breath Docusate Sodium 200 mg 10/04/24 21:31 Docusate 100 Mg Capsule PO 10/04/25 21:30 BID PRN Constipation Fludrocortisone Acetate 0.05 mg 10/05/24 09:00 10/06/24 08:12 Fludrocortisone Acetate 0.1 Mg Tablet PO 10/05/25 08:59 0.05 mg QAM TRAVON Administration Fluoxetine HCl 10 mg 10/05/24 09:00 10/06/24 08:13 Fluoxetine 10 Mg Capsule PO 10/05/25 08:59 10 mg QAM TRAVON Administration Hydralazine HCl 10 mg 10/04/24 21:31 Hydralazine 20 Mg/Ml Vial IV-PUSH 10/04/25 21:30 Q4H PRN if SBP > 185 Lamotrigine 100 mg 10/05/24 09:00 10/06/24 08:13 Lamotrigine 100 Mg Tablet PO 10/05/25 08:59 100 mg BID TRAVON Administration Morphine Sulfate 2 mg 10/05/24 11:37 10/05/24 22:12 Morphine Sulfate 2 Mg/Ml Vial IV-PUSH 2 mg Q4H PRN Administration abdominal pain Nitrofurantoin Macrocrystals 100 mg 10/06/24 17:00 Nitrofurantoin Monohyd/M-Cryst 100 Mg Capsule PO 10/11/24 16:59 BID.WITH.MEALS TRAVON Nortriptyline HCl 20 mg 10/04/24 22:30 10/05/24 22:12 Nortriptyline 10 Mg Capsule PO 10/04/25 22:29 20 mg QHS TRAVON Administration Oxycodone HCl 5 mg 10/04/24 21:31 10/06/24 08:12 Oxycodone Ir 5 Mg Tablet PO 5 mg Q4HR PRN Administration Pain Pantoprazole Sodium 40 mg 10/05/24 07:30 10/06/24 08:12 Pantoprazole 40 Mg Tablet. PO 10/05/25 07:29 40 mg DAILY.AC.BKFAST TRAVON Administration Sodium Chloride 0 ml 10/04/24 17:27 10/06/24 04:54 Sodium Chloride 0.9 % 10 Ml Syringe IV-PUSH 10/04/25 17:26 10 ml PRN PRN Administration Flush A&P - Hospitalist Assessment/Plan (1) Neurogenic bladder, NOS: Plan Complicated UTI in setting of neurogenic bladder, as well as unsuccessful replacement of suprapubic catheter on October 03 Urology attempted to replace the suprapubic catheter in the emergency room and was unable to. Please see op notes for details on that. ? Poole catheter was placed, it is draining well ? Patient to be discharged with Poole catheter in place for outpatient follow- upwith Dr. Allan regarding the decision to replace the suprapubic catheter in thefuture -Appreciate ID recommendations, ID meropenem was switched to nitrofurantoin 100 mg p.o. twice daily for a total of 5 days MS--continue p.o. fludrocortisone DVT prophylaxis>>Started on HSQ Time Spent With Patient (min): 50 Documented By: Luis Santoro MD 10/06/24 2108 Signed By: <Electronically signed by Luis Santoro MD> 10/07/24 0713 [facility] Work Phone: Progress note Author Luis Santoro [facility] Note Date/Time October 07, 2024 1:54 pm [facility] EN[facility] [address] [place] [address] Hospitalist Progress Note Signed with Addenda Patient: Alessandra Hardy MR#: [id number] : 1960 Acct:[id number] Age/Sex: 64 / F Adm Date: 5 Loc: Room: [address] [place] [address] Type: ADM IN Attending Dr: Luis Santoro MD Copies to: ~ ADDENDUM1 Ordered CT Chest PE for this patient given her tachycardia and hypoxia Will give IV fluids for now Addendum Documented By: Luis Santoro MD 10/07/24 1454 Addendum Signed By: <Electronically signed by Luis Santoro MD> 10/07/24 1454 Date of Service: 10/07/2024 Subjective Subjective Narrative: Patient seen and examined at bedside. Abdominal pain improved today. However patient's persistently tachycardic. I was about to discharge her today however given the tachycardia I will give her some fluids and reassess in a.m. tomorrow heart rate. On the monitor and the twelve-lead EKG there was no evidence of arrhythmia. Exam Physical Exam Vital Signs: Temp Pulse Resp BP Pulse Ox O2 Del Method O2 Flow Rate 98.3 F 115 H 18 129/82 91 L Room Air 2 10/07/24 08:45 10/07/24 13:37 10/07/24 13:37 10/07/24 08:45 10/07/24 13:37 10/07/24 13:37 10/07/24 08:00 Narrative: General: Awake alert, no acute distress HEENT: head atraumatic, normocephalic, moist mucous membranes Neck: supple no masses, no lymphadenopathy CVS: regular rate and rhythm, no murmurs or gallops Respiratory: clear to auscultation bilaterally, no wheezing or crackles, symmetric expansion GI: soft, nondistended, slight tenderness to palpation on the right and left side of her abdomen dressing over suprapubic catheter site is CDI, positive bowel sounds with no organomegaly Extremity: moves all extremities, no restrictions of movements, no calf tenderness, no edema Neuro: AOx3, CN II-VII intact. Moves all extremities in all planes of motion. Skin: dry, intact no rashes or lesions Objective Lab Results 10/07/24 06:17 10/07/24 06:17 Microbiology Results Microbiology 10/04/24 20:05 Blood - Right Hand Blood Culture - Preliminary No Growth 2 Days 10/04/24 19:54 Blood - Right Antecubital Blood Culture - Preliminary No Growth 2 Days 10/04/24 19:09 Urine - Poole Catheter Urine Culture - Final Escherichia coli (ESBL) Meds Allergies and Active Meds Allergies aspirin Allergy (Unknown, Verified 10/04/24 17:27) Unknown Reaction silicone Allergy (Unknown, Verified 10/04/24 17:27) Rash adhesive tape Allergy (Verified 10/04/24 17:27) Rash Active Meds: Active Medications Generic Name Dose Route Start Last Admin Trade Name Freq PRN Reason Stop Dose Admin Acetaminophen 650 mg 10/04/24 21:31 10/05/24 08:56 Acetaminophen 325 Mg Tablet PO 10/04/25 21:30 650 mg Q4H PRN Administration Pain Scale 1 - 5 Al Hydrox/Mg Hydrox/Simethicone 30 ml 10/07/24 03:47 10/07/24 08:59 Mag Hydrox/Al Hydrox/Simeth 30 Ml Udc PO 10/07/25 03:46 30 ml Q4H PRN Administration Indigestion Albuterol 2.5 mg 10/04/24 21:31 Albuterol Neb 2.5 Mg/3 Ml Vial.Neb INHALATION 10/04/25 21:30 Q2H PRN Shortness Of Breath Docusate Sodium 200 mg 10/04/24 21:31 Docusate 100 Mg Capsule PO 10/04/25 21:30 BID PRN Constipation Fludrocortisone Acetate 0.05 mg 10/05/24 09:00 10/07/24 08:58 Fludrocortisone Acetate 0.1 Mg Tablet PO 10/05/25 08:59 0.05 mg QAM TRAVON Administration Fluoxetine HCl 10 mg 10/05/24 09:00 10/07/24 08:59 Fluoxetine 10 Mg Capsule PO 10/05/25 08:59 10 mg QAM TRAVON Administration Heparin Sodium (Porcine) 5,000 unit 10/06/24 22:00 10/07/24 06:12 Heparin 5,000 Unit/Ml Vial SUBCUT 10/06/25 21:59 5,000 unit Q8HR TRAVON Administration Hydralazine HCl 10 mg 10/04/24 21:31 Hydralazine 20 Mg/Ml Vial IV-PUSH 10/04/25 21:30 Q4H PRN if SBP > 185 Lamotrigine 100 mg 10/05/24 09:00 10/07/24 08:59 Lamotrigine 100 Mg Tablet PO 10/05/25 08:59 100 mg BID TRAVON Administration Morphine Sulfate 2 mg 10/05/24 11:37 10/05/24 22:12 Morphine Sulfate 2 Mg/Ml Vial IV-PUSH 2 mg Q4H PRN Administration abdominal pain Nitrofurantoin Macrocrystals 100 mg 10/06/24 17:00 10/07/24 08:59 Nitrofurantoin Monohyd/M-Cryst 100 Mg Capsule PO 10/11/24 16:59 100 mg BID.WITH.MEALS TRAVON Administration Nortriptyline HCl 20 mg 10/04/24 22:30 10/06/24 21:41 Nortriptyline 10 Mg Capsule PO 10/04/25 22:29 20 mg QHS TRAVON Administration Oxycodone HCl 5 mg 10/04/24 21:31 10/06/24 08:12 Oxycodone Ir 5 Mg Tablet PO 5 mg Q4HR PRN Administration Pain Pantoprazole Sodium 40 mg 10/05/24 07:30 10/07/24 08:59 Pantoprazole 40 Mg Tablet. PO 10/05/25 07:29 40 mg DAILY.AC.BKFAST TRAVON Administration Sodium Chloride 0 ml 10/04/24 17:27 10/06/24 04:54 Sodium Chloride 0.9 % 10 Ml Syringe IV-PUSH 10/04/25 17:26 10 ml PRN PRN Administration Flush A&P - Hospitalist Assessment/Plan (1) Neurogenic bladder, NOS: Plan Complicated UTI in setting of neurogenic bladder, as well as unsuccessful replacement of suprapubic catheter on October 03 Urology attempted to replace the suprapubic catheter in the emergency room and was unable to. Please see op notes for details on that. ? Poole catheter was placed, it is draining well ? Patient to be discharged with Poole catheter in place for outpatient follow- upwith Dr. Allan regarding the decision to replace the suprapubic catheter in thefuture -Appreciate ID recommendations, ID meropenem was switched to nitrofurantoin 100 mg p.o. twice daily for a total of 5 days -Will continue pt on telemetry for today, start IV fluids, and will reassess in am her HR, if HR is not improved I will consult with cardiology -Patient is afebrile with no leukocytosis. Blood cultures were negative after 2days. She is not bleeding from anywhere. She hemorrhagic or septic etiology orruled out. MS--continue p.o. fludrocortisone DVT prophylaxis>>Started on HSQ Documented By: Luis Santoro MD 10/07/24 1445 Signed By: <Electronically signed by Luis Santoro MD> 10/07/24 1450 [facility] Work Phone: Advance Directives No Advanced Directives Records FoundDocuments on File Type Date Recorded Patient Supervisor Shipping Room Expl anation Advance Directives and Living Will Power of Carding Supervisor Advance Directive Response Recorded Date/ Time Advance Directives No October 22, 022 12:52pm Advance Directive Response Recorded Date/ Time Advance Directives No December 24 7:12pm Advance Directive Response Recorded Date/ Time Advance Directives No December 24 6:12pm Advance Directive Response Recorded Date/ Time Advance Directives No June 6:12pm Advance Directive Response Recorded Date/ Time Advance Directives No June 7:12pm Summary Purpose Family History No Family History Records Found Relationship Condition Age at Onset Recorded Date/T samuel father Malignant melanoma Unknown Not Specified Dementia Unknown Relationship Condition Age at Onset Recorded Date/T samuel father Malignant melanoma Unknown Status post three ve ssel coronary artery bypass Unknown Not Specified Dementia Unknown Relationship Condition Age at Onset Recorded Date/T samuel father Malignant melanoma Unknown Status post three ve ssel coronary artery bypass Unknown mother Dementia Unknown Relationship Condition Age at Onset Recorded Date/T samuel father Malignant melanoma Unknown Status post three ve ssel coronary artery bypass Unknown Myocardial infarction Unknown mother Dementia Unknown Chief Complaint and Reason for Visit Chief Complaint r lower quad pain [employer] INFECTION elevated ESR Elevated protein/albumin ratio Abnormal Light Chain Protein Chief Complaint r lower quad pain [employer] INFECTION elevated ESR Elevated protein/albumin ratio Abnormal Light Chain Protein abnormal labs Reason for Visit Elevated serum immun oglobulin free light chain level Nonhealing ulcer of right lower extremity Paraparesis of both lower limbs Secondary progressive multiple sclerosis Chief Complaint r lower quad pain [employer] INFECTION elevated ESR Elevated protein/albumin ratio Abnormal Light Chain Protein abnormal labs D47.2 Reason for Visit Elevated serum immun oglobulin free light chain level Nonhealing ulcer of right lower extremity Paraparesis of both lower limbs Secondary progressive multiple sclerosis Chief Complaint hydroureter, incompl ete emptying Chief Complaint hydroureter, incompl ete emptying Left Hydroureter Left Hydroureter Chief Complaint Left Hydroureter Left Hydroureter R76.8 Poole is leaking Chief Complaint Left Hydroureter Left Hydroureter R76.8 Poole is leaking sent for dx Chief Complaint Poole is leaking R76.8 Abnormal Light Chain Protein g35 Reason for Visit Elevated serum immun oglobulin free light chain level Nonhealing ulcer of right lower extremity Paraparesis of both lower limbs Secondary progressive multiple sclerosis Chief Complaint Poole is leaking R76.8 Abnormal Light Chain Protein g35 M81.0 Reason for Visit Elevated serum immun oglobulin free light chain level Nonhealing ulcer of right lower extremity Paraparesis of both lower limbs Secondary progressive multiple sclerosis Chief Complaint Poole is leaking R76.8 Abnormal Light Chain Protein M81.0 g35 Reason for Visit Elevated serum immun oglobulin free light chain level Nonhealing ulcer of right lower extremity Paraparesis of both lower limbs Secondary progressive multiple sclerosis Chief Complaint M81.0 g35 VAG BLEEDING Chief Complaint M81.0 g35 VAG BLEEDING post menopause bleed Chief Complaint VAG BLEEDING post menopause bleed PMB N31.4 Chief Complaint llq pain Chief Complaint llq pain Elevated serum immunoglobulin free light chains Chief Complaint llq pain R76.8 Abnormal Light Chain Protein g35 Reason for Visit Elevated serum immun oglobulin free light chain level Nonhealing ulcer of right lower extremity Paraparesis of both lower limbs Secondary progressive multiple sclerosis Chief Complaint R76.8 Abnormal Light Chain Protein g35 Screening Reason for Visit Elevated serum immun oglobulin free light chain level Nonhealing ulcer of right lower extremity Paraparesis of both lower limbs Secondary progressive multiple sclerosis Chief Complaint Abnormal Light Chain Protein g35 Screening HEAD PAIN Reason for Visit Elevated serum immun oglobulin free light chain level Nonhealing ulcer of right lower extremity Paraparesis of both lower limbs Secondary progressive multiple sclerosis Chief Complaint Abnormal Light Chain Protein g35 Screening HEAD PAIN m81.0 Reason for Visit Elevated serum immun oglobulin free light chain level Nonhealing ulcer of right lower extremity Paraparesis of both lower limbs Secondary progressive multiple sclerosis Chief Complaint rlq pain Urinary Retention, Neurogenic Bladder Chief Complaint rlq pain Urinary Retention, Neurogenic Bladder Low BP Reason for Visit [place] (acute kidney in jury) Pyelonephritis Severe sepsis Urinary tract infection Chief Complaint rlq pain Urinary Retention, Neurogenic Bladder Low BP Low BP Reason for Visit [place] (acute kidney in jury) Bacteremia Bacteremia due to Gram-negative bacteria Dehydration Elevated troponin Hypotension Pyelonephritis Severe sepsis Tachycardia Urinary tract infection Chief Complaint Admit Date rlq pain May 16, 2024 7 :58am Urinary Retention, Neurogenic Bladder Oc tober 2023 9:34am Low BP May 18, 2024 7 :45pm Low BP May 19, 2024 1 0:33am Urinary Retention, Neurogenic Bladder Oc tober 2023 8:00am Urinary Retention, Recurrent UTI's Decem 2023 9:27am Urinary Retention, Recurrent UTI's Janua ry 2024 9:24am Reason for Visit Admit Date Bacteremia May 18, 2024 7 :45pm Bacteremia due to Gram-negative bacteria May 18, 2024 7:45pm [place] (acute kidney injury) May 18, 2024 7:45pm Dehydration May 18, 2024 7 :45pm Elevated troponin May 18, 2024 7 :45pm Hypotension May 18, 2024 7 :45pm Pyelonephritis May 18, 2024 7 :45pm Sepsis May 18, 2024 7 :45pm Severe sepsis May 18, 2024 7 :45pm Tachycardia May 18, 2024 7 :45pm Urinary tract infection May 18 7:45pm Chief Complaint Admit Date Urinary Retention, Recurrent UTI's Decem 2023 9:27am Urinary Retention, Recurrent UTI's Janua ry 2024 9:24am Chief Complaint Admit Date Urinary Retention, Recurrent UTI's Decem 2023 9:27am Urinary Retention, Recurrent UTI's Janua ry 2024 9:24am Cath issues October 04, 2024 9:31 pm Reason for Visit Admit Date Atypical chest pain October 04, 2024 9:31 pm Encounter for suprapubic catheter care [facility] 2024 9:31pm Multiple sclerosis October 04, 2024 9:31 pm Neurogenic bladder, NOS October 04, 2024 9:31pm UTI (urinary tract infection) October 04, 2024 9:31pm UTI (urinary tract infection ) due to urinary indwelling Poole catheter October 04, 2024 9:31pm Chief Complaint Admit Date Urinary Retention, Recurrent UTI's Decem gisell 2023 9:27am Urinary Retention, Recurrent UTI's [facility] 2024 9:24am Cath issues October 04, 2024 9:31 pm Cath issues October 06, 2024 11:5 0am Cath issues October 08, 2024 3:52 pm Reason for Visit Admit Date Atypical chest pain October 04, 2024 9:31 pm Encounter for suprapubic catheter care [facility] 2024 9:31pm 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 October 04, 2024 9:31pm Multiple sclerosis October 04, 2024 9:31 pm Neurogenic bladder, NOS October 04, 2024 9:31pm Sinus tachycardia October 04, 2024 9:31 pm Suprapubic catheter dysfunction September 9:31pm UTI (urinary tract infection) October 04, 2024 9:31pm UTI (urinary tract infection ) due to urinary indwelling Poole catheter October 04, 2024 9:31pm Chief Complaint Admit Date Urinary Retention, Recurrent UTI's [facility] 2024 9:24am Cath issues October 04, 2024 9:31 pm Cath issues October 06, 2024 11:5 0am Cath issues October 08, 2024 3:52 pm dinero stools with mucous October 25, 2024 8:06am Reason for Visit Admit Date Encounter for suprapubic catheter care [facility] 2024 9:31pm 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 October 04, 2024 9:31pm Multiple sclerosis October 04, 2024 9:31 pm Neurogenic bladder, NOS October 04, 2024 9:31pm Sinus tachycardia October 04, 2024 9:31 pm Suprapubic catheter dysfunction September 9:31pm UTI (urinary tract infection) October 04, 2024 9:31pm UTI (urinary tract infection ) due to urinary indwelling Poole catheter October 04, 2024 9:31pm Atypical chest pain October 04, 2024 9:31 pm Chief Complaint Admit Date Urinary Retention, Recurrent UTI's Janua ry 2024 9:24am Cath issues October 04, 2024 9:31 pm Cath issues October 06, 2024 11:5 0am Cath issues October 08, 2024 3:52 pm dinero stools with mucous October 25, 2024 8:06am M81.0 October 27, 2024 8:5 4am Chief Complaint Admit Date Urinary Retention, Recurrent UTI's Augua ry 2024 9:24am Cath issues October 04, 2024 9:31 pm Cath issues October 06, 2024 11:5 0am Cath issues October 08, 2024 3:52 pm dinero stools with mucous October 25, 2024 8:06am M81.0 October 27, 2024 8:5 4am Unknown November 01, 2024 8:50 am Reason for Visit Admit Date Encounter for suprapubic catheter care [facility] 2024 9:31pm 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 October 04, 2024 9:31pm Multiple sclerosis October 04, 2024 9:31 pm Neurogenic bladder, NOS October 04, 2024 9:31pm Suprapubic catheter dysfunction September 9:31pm UTI (urinary tract infection) October 04, 2024 9:31pm UTI (urinary tract infection ) due to urinary indwelling Poole catheter October 04, 2024 9:31pm Atypical chest pain October 04, 2024 9:31 pm Sinus tachycardia October 04, 2024 9:31 pm Chief Complaint Admit Date Cath issues October 04, 2024 9:31 pm Cath issues October 06, 2024 11:5 0am Cath issues October 08, 2024 3:52 pm dinero stools with mucous October 25, 2024 8:06am M81.0 October 27, 2024 8:5 4am Unknown November 01, 2024 8:50 am abn EKG, TIA, hx seizures November 10 1:30pm Additional Source Comments INFORMATION SOURCE (unrecogn ized section and content) DATE CREATED AUTHOR 10/30/2019 [facility] DATE CREATED AUTHOR AUTHOR'S ORGANIZ ATION 07/07/2021 [facility] DATE CREATED AUTHOR AUTHOR'S ORGANIZ ATION 08/16/2021 [facility] Specialist DATE CREATED AUTHOR AUTHOR'S ORGANIZ ATION 10/20/2024 Dionte Perrinus [facility] DATE CREATED AUTHOR AUTHOR'S ORGANIZ ATION 11/05/2024 [facility] d[facility] Specialists EPIC DATE CREATED AUTHOR AUTHOR'S ORGANIZ ATION 11/12/2024 [facility] Care Teams (unrecognized sec tion and content) Team Status: Active Member Role Status Dates Neva Miller DO Primary Care Provider Active Team Status: Inactive Member Role Status Dates Neva Miller DO Primary Care Provide r, Attending Provider Active Start: May 16, 2024 End: May 16, 2024 Team Status: Active Member Role Status Dates Neva Miller DO Primary Care Provider Active Start: May 16, 2024 Tammy Allan MD Attending Provider Active St art: May 16, 2024 Team Status: Active Member Role Status Dates Neva Miller DO Primary Care Provide r, Referring Provider Active Start: July 28, 2023 Silvina Turner MD Attending Provider Active Start: July 28, 2023 Team Status: Inactive Member Role Status Dates Katja Botello NP-Mia Attending Provider Active Start: August 12, 2023 End: August 12, 2023 Neva Miller DO Primary Care Provider Active Start: August 12, 2023 End: August 12, 2023 Team Status: Inactive Member Role Status Dates Neva Miller DO Primary Care Provide r, Attending Provider Active Start: September 17, 2023 End: September 17, 2023 Team Status: Inactive Member Role Status Dates Adam Lind DO Emergency Provider Active Sta rt: October 17, 2023 End: October 17, 2023 Neva Miller DO Primary Care Provider Active Start: October 17, 2023 End: October 17, 2023 Team Status: Active Member Role Status Dates Neva Miller DO Primary Care Provider, Referring P romaryam Active Silvina Turner MD Attending Provider Active Team Status: Inactive Member Role Status Dates Neva Miller DO Primary Care Provider, Attending P richard Active Team Status: Inactive Member Role Status Dates Neva Miller DO Primary Care Provider Active Silvina Turner MD Attending Provider Active Team Status: Inactive Member Role Status Dates Neva Miller , DO Primary Care Provider Active Tammy Allan MD Attending Provider Active Team Status: Inactive Member Role Status Dates Neva Miller , DO Primary Care Provider Active Ricardo Casanova , DO Emergency Provider Active Team Status: Inactive Member Role Status Dates Neva Miller , DO Primary Care Provider Active Katja Botello NP-C Attending Provider Active Team Status: Inactive Member Role Status Dates Tammy Hart , DO Emergency Provider Active Neva Miller , DO Primary Care Provider Active Team Status: Inactive Member Role Status Dates Neva Miller , DO Primary Care Provider Active Tammy Hart , DO Attending Provider Active Team Status: Inactive Member Role Status Dates Neva Miller , DO Primary Care Provider Active Yan Smith , DO Attending Provider Active Team Status: Inactive Member Role Status Dates Neva Miller , DO Primary Care Provider Active Cash Blair NP-C Attending Provider Active Team Status: Inactive Member Role Status Dates Silvina Turner MD Attending Provider Active Team Status: Inactive Member Role Status Dates Katja Botello NP-C Attending Provider Active Neva Miller , Primary Care Provider Active Team Status: Inactive Member Role Status Dates Silvina Turner MD Attending Provider Active Start: June 29, 2023 End: June 29, 2023 Team Status: Inactive Member Role Status Dates Neva Miller DO Primary Care Provide r, Attending Provider Active Start: October 22, 2023 End: October 25, 2023 Machine Tech Relationship Specialty Start Date End Date Neva Miller DO [address] [place] [address] PCP - [facility] 12/24/22 Neva Miller DO [address] [place] [address] PCP - General Internal Medicine 11/03/23 Team Status: Inactive Member Role Status Radha Miller DO Primary Care Provider Active Start: May 16, 2024 End: May 16, 2024 Tammy Allan MD Attending Provider Active St art: May 16, 2024 End: May 16, 2024 Team Status: Active Member Role Status Dates Gely Story MD Emergency Provider Active Start: May 18, 2024 Neva Miller DO Primary Care Provider Active Start: May 18, 2024 Luis Santoro MD Admit Provider, Atte nding Provider Active Start: May 18, 2024 Team Status: Inactive Member Role Status Dates Gely Story MD Emergency Provider Active Start: May 18, 2024 End: May 23, 2024 Neva Miller DO Primary Care Provider Active Start: May 18, 2024 End: May 23, 2024 Luis Santoro MD Admit Provider Active Start: O ctober 2023 End: May 23, 2024 Americo Maldonado MD Other Provider Active Start: May 18, 2024 End: May 23, 2024 Yuriy Triana MD Attending Provider Active Start: May 18, 2024 End: May 23, 2024 Team Status: Active Member Role Status Dates Gely Story MD Emergency Provider Active Start: May 19, 2024 Neva Miller DO Primary Care Provider Active Start: May 19, 2024 Luis Santoro MD Admit Provider, Other Provider Activ e Start: May 19, 2024 Americo Maldonado MD Attending Provider, Other Provider Active Start: May 19, 2024 Team Status: Inactive Member Role Status Dates Neva Miller DO Primary Care Provider Active Start: May 30, 2024 End: May 30, 2024 Tammy Allan MD Attending Provider Active St art: May 30, 2024 End: May 30, 2024 Team Status: Inactive Member Role Status Dates Neva Miller DO Primary Care Provider Active Start: July 24, 2024 End: July 24, 2024 Tammy Allan MD Attending Provider Active St art: July 24, 2024 End: July 24, 2024 Team Status: Inactive Member Role Status Dates Neva Miller DO Primary Care Provider Active Start: August 08, 2024 End: August 08, 2024 Tammy Allan MD Attending Provider Active St art: August 08, 2024 End: August 08, 2024 Team Status: Active Member Role Status Dates Emre Mendes DO Emergency Provider Active Start: October 04, 2024 Neva Miller DO Primary Care Provider Active Start: October 04, 2024 Virginia Gaviria MD Admit Provider, Att ending Provider Active Start: October 04, 2024 Tammy Allan MD Other Provider Active Start: October 04, 2024 Bong Jennings MD Other Provider Active Start: October 04, 2024 Emma Merino MD Other Provider Active Start: [facility] 2024 Romeo Hernandez MD Other Provider Active Start: October 04, 2024 Tammy Smith MD Other Provider Active Start : October 04, 2024 Lew Turner MD Other Provider Active S tart: October 04, 2024 Jair Philip MD Other Provider Active Start: October 04, 2024 YRN Jones Other Provider Active Star t: October 04, 2024 NITZA Chamberlain Other Provider Active Sta rt: October 04, 2024 Team Status: Inactive Member Role Status Dates Emre Mendes DO Emergency Provider Active Start: October 04, 2024 End: October 08, 2024 Neva Miller DO Primary Care Provider Active Start: October 04, 2024 End: October 08, 2024 Virginia Gaviria MD Admit Provider Active Start : October 04, 2024 End: October 08, 2024 Tammy Allan MD Other Provider Active Start: October 04, 2024 End: October 08, 2024 Bong Jennings MD Other Provider Active Start: October 04, 2024 End: October 08, 2024 Emma Merino MD Other Provider Active Start: [facility] 2024 End: October 08, 2024 Romeo Hernandez MD Other Provider Active Start: October 04, 2024 End: October 08, 2024 Tammy Smith MD Other Provider Active Start : October 04, 2024 End: October 08, 2024 Lew Turner MD Other Provider Active S tart: October 04, 2024 End: October 08, 2024 Jair Philip MD Other Provider Active Start: October 04, 2024 End: October 08, 2024 YRN Jones Other Provider Active Star t: October 04, 2024 End: October 08, 2024 NITZA Chamberlain Other Provider Active Sta rt: October 04, 2024 End: October 08, 2024 Luis Santoro MD Attending Provider Active Star t: October 04, 2024 End: October 08, 2024 Americo Maldonado MD Other Provider Active Start: October 04, 2024 End: October 08, 2024 Chelsea Willingham DO Other Provider Active Sta rt: October 04, 2024 End: October 08, 2024 Team Status: Active Member Role Status Dates Emre Mendes DO Emergency Provider Active Start: October 06, 2024 Neva Miller DO Primary Care Provider Active Start: October 06, 2024 Virginia Gaviria MD Admit Provider Active Start : October 06, 2024 Tammy Allan MD Other Provider Active Start: October 06, 2024 Bong Jennings MD Other Provider Active Start: October 06, 2024 Emma Merino MD Other Provider Active Start: [facility] 2024 Romeo Hernandez MD Other Provider Active Start: October 06, 2024 Tammy Smith MD Other Provider Active Start : October 06, 2024 Lew Turner MD Other Provider Active S tart: October 06, 2024 Jair Philip MD Other Provider Active Start: October 06, 2024 YRN Jones Other Provider Active Star t: October 06, 2024 Mayra Grier [facility] Other Provider Active Sta rt: October 06, 2024 Luis Santoro MD Other Provider Active Start: 2024 Americo Maldonado MD Attending Provider, Other Provider Active Start: October 06, 2024 Team Status: Active Member Role Status Dates Emre Mendes DO Emergency Provider Active Start: October 08, 2024 Neva Miller DO Primary Care Provider Active Start: October 08, 2024 Virginia Gaviria MD Admit Provider Active Start : October 08, 2024 Tammy Allan MD Other Provider Active Start: October 08, 2024 Bong Jennings MD Other Provider Active Start: October 08, 2024 Emma Merino MD Other Provider Active Start: [facility] 2024 Romeo Hernandez MD Other Provider Active Start: October 08, 2024 Tammy Smith MD Other Provider Active Start : October 08, 2024 Lew Turner MD Other Provider Active S tart: October 08, 2024 Jair Philip MD Other Provider Active Start: October 08, 2024 Monae Kauffman , FILEMAKER DEVELOPER-C Other Provider Active Star t: October 08, 2024 Mayra Grier DRIVING TEACHER-BC Other Provider Active Sta rt: October 08, 2024 Luis Santoro MD Other Provider Active Start: M 2024 Americo Maldonado MD Other Provider Active Start: October 08, 2024 Chelsea Willingham DO Other Provider Active Sta rt: October 08, 2024 Brigid Adame MD Attending Provider Active Sta rt: October 08, 2024 Machine Tech Relationship Specialty Start Date End Date Neva Miller DO [address] [place] [address] PCP - ACO Reach 12/24/22 Neva Miller DO [address] [place] [address] PCP - General Internal Medicine 11/03/23 Team Status: Inactive Member Role Status Dates Neva Miller DO Attending Provider Active St art: October 25, 2024 End: October 25, 2024 Machine Tech Relationship Specialty Start Date End Date Neva Miller DO [address] [place] [address] PCP - ACO Reach 12/24/22 Neva Miller DO [address] [place] [address] PCP - General Internal Medicine 11/03/23 Team Status: Inactive Member Role Status Dates Neva Miller DO Attending Provider, Referring Provider Active Start: October 27, 2024 End: October 27, 2024 Team Status: Inactive Member Role Status Dates Tammy Allan MD Attending Provider Active St art: November 01, 2024 End: November 01, 2024 Machine Tech Relationship Specialty Start Date End Date Neva Miller DO [address] [facility] [address] [place] [address] PCP - ACO Reach 12/24/22 Neva Miller DO [address] [facility] [address] [place] [address] PCP - General Internal Medicine 11/03/23 Team Status: Inactive Member Role Status Dates Tammy Allan MD Attending Provider Active art: November 10, 2024 End: November 10, 2024 Neva Miller DO Primary Care Provider Active Start: November 10, 2024 End: November 10, 2024 Goals (unrecognized section and content) Goals may be documented in a n alternate section Reason for Visit (unrecogniz ed section and content) Reason Comments GB Consult Specialty Diagnoses / Procedures Referred By Contac t Referred To Contact General Surgery Diagnoses Cholelithiasis Procedures PA OFFICE/OUTPATIENT [facility] 60 MINUTES Neva Miller DO [address] [facility] [address] [place] [address] Phone: tel: fax: [facility] [address] [place] [address] Phone: tel: fax: Referral ID Status Reason Start Date Expiration Date V isits Requested Visits Authorized [id number] Closed Specialty Services Required 10/30/2024 04/28/2025 1 1 Reason Comments LT Knee Injection FOR RECORDS PERTAINING TO PATIENTS WHO ARE OR HAVE BEEN ENROLLED IN A CHEMICAL DEPENDENCY/SUBSTANCEABUSE PROGRAM, SOME INFORMATION MAY BE OMITTED. This clinical summary was aggregated from multiple sources. Caution should be exercised in using it in the provision of clinical care. This summary normalizes information from multiple sources, and as a consequence, information in this document may materially change the coding, format and clinical context of patient data. In addition, data may be omitted in some cases. CLINICAL DECISIONS SHOULD BE BASED ON THE PRIMARY CLINICAL RECORDS. [facility] [employer] [facility]. provides no warranty or guarantee of the accuracy or completeness of information in this document.
[2024-11-16] MEDS: LACTATED RINGER'S SOLUTION 1,000 ML 50 ML IV (07:41)
[2024-11-16] MEDS: CEFAZOLIN SODIUM 2 GM/50 ML D5W PREMIX IV (07:53)
--- NOTE | 2024-11-16 09:16 | PM.URSON ---
Urology Surgery Operative Note Operative Note Procedure Date: 11/16/24 Time Out Performed: yes Pre-op Diagnosis: Neurogenic bladder and displaced suprapubic tube Post-op Diagnosis: same as pre-op Procedures performed: 1. Cystoscopy. 2. Percutaneous placement of 12 [place] suprapubic tube. Anesthesia: General-LMA Primary Surgeon: Gomez Warner Complications: None Estimated blood loss (mL): 10 Findings: Thick contracted bladder. Specimens: None Drains: 12 [place] suprapubic tube taped to the abdomen in a curvilinear fashion. 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 She had a suprapubic tube placed in August 2024. Things were going well until her tube became displaced. It was ultimately removed because it could not be salvaged. She has had a Poole catheter in place per urethra since the suprapubic tube was displaced. She now presents for cystoscopy and replacement of her suprapubic tube. She has signed an informed consent after risks were explained. Detailed description of Procedure: The patient was brought to the operating room and placed on the operating room table in the supine position. SCDs were placed on the lower extremities and turned on and functioning during the entire case. Timeout was done by all parties in the room. We all agreed upon the patient's identification and the planned procedures for this patient. Genn. anesthesia was then administered. The patient was then repositioned into the modified dorsal lithotomy position. All pressure points were satisfactorily padded. Abdomen and genitalia were sterilely prepped and draped in usual fashion. I started by passing a flexible cystoscope per urethra and into the bladder. The bladder was thick and contracted. I distended it as much as I could. I then palpated suprapubically over the previous suprapubic tube site. A spinal needle was then placed over this and demonstration of entrance into the bladder was noted. The scope was removed. A 15 blade scalpel was then used and an incision was made over the area of the prior suprapubic tube site. Blunt dissection was carried down to the bladder level. She had a deceivingly large amount of subcutaneous panniculus to go through. I then passed the [place]owsley tractor into the bladder and due to her contracted thick bladder I was unable to safely use the [place] for the suprapubic tube placement. This was removed. I then used a Bard 12 [place] suprapubic tube kit and loaded the catheter on the introducer with the stylette in place. I then passed a finger in her urethra and palpated the anterior bladder and I could feel the introducer. I then pushed the introducer through the anterior bladder wall and into the bladder. The introducer was removed. The balloon was inflated with 10 cc. The stylette was removed. The catheter irrigated well with a Sana. I could literally feel the catheter with a finger placed through the urethra into the bladder. After irrigating the catheter I then closed the suprapubic tube incision in a couple layers. 3-0 Vicryl was used in an interrupted fashion to close deeply. 5-0 nylon was used to close the skin in an interrupted fashion. The tube was taped in a curvilinear fashion on the abdomen and a leg bag was applied. Sterile dressing was placed over the incision. The patient was then transferred to a [facility] bed and wheeled to PACU in stable condition. Urinary Catheter Management Urinary Catheter Management Suprapubic: Cath placed during this visit: no
== END 2024-11-16 10:15 | disposition home or self-care (01) ==
PROVIDERS: PCP Internal Medicine; Visit Provider Urology
PROC: (CPT 51102; principal; 2024-11-16 08:00)
DX: N31.9 Neuromuscular dysfunction of bladder, unspecified (principal); G35 Multiple sclerosis; F32.A Depression, unspecified; R56.9 Unspecified convulsions; Z86.73 Personal history of transient ischemic attack (TIA), and cerebral infarction without residual deficits; M54.12 Radiculopathy, cervical region; K21.9 Gastro-esophageal reflux disease without esophagitis; Z87.442 Personal history of urinary calculi; J45.909 Unspecified asthma, uncomplicated
CPT/HCPCS: 51102; 36415; J0690; J2405; J2704; J3010